=== PATIENT | female | born 1955 | race African-American/Black ===

== ENCOUNTER 2018-09-09 12:31 | Inpatient (IN) | payer OTHER ==
[2018-09-09] VITALS (35 sets, daily range): BP systolic 80–181; BP diastolic 46–128; PULSE 57–98; RESP 6–41
[~2018-09-09] VITALS: Ht 167.6 cm; Wt 65.0 kg
[~2018-09-09 12:31] MED LIST: ADENOSINE 3 MG/ML SYRINGE IV ONE; AMIODARONE 150 MG INJ ONE; EPINEPHrine 0.1 MG/ML SYG ONE; NA BICARBONATE 8.4% 50 ML SYG ONE; NALOXONE 2 MG SYG ONE
--- NOTE | 2018-09-09 12:52 | ERD ---
ER Documentation Chief Complaint Chief Complaint Full arrest HPI The patient is a 63-year-old female, presenting to the ER because of a witnessed cardiac arrest on the street about 12:10 pm. She was in ventricular fib and she was defibrillated twice by EMS and treated with Epi 1 mg IV. She arrived to the ER in V Fib. She was immediately intubated w/o any difficulty. Accu chek was 90 The code began at 12:32 pm, ended at 12:41pm with ROSC. He did have Narcan 2 mg IV, was defibrillated twice at 200J, had Amiodaron 300mg IV and later 150 mg IV, epinephrine 1 mg IVx5 approx 3 min apart and 1 ampule of HCO3 with good response. Past medical/surgical history/social history/review of system: Unable to obtain due to her condition Medications Home Meds Reported Medications Hydrochlorothiazide* (Hydrochlorothiazide*) 25 Mg Tab, 25 MG PO DAILY, #30 TAB 09/09/18 Simvastatin (Simvastatin) 20 Mg Tablet, 20 MG PO DAILY 09/09/18 Lisinopril* (Lisinopril*) 40 Mg Tablet, 40 MG PO DAILY 09/09/18 Allergies Allergies: Coded Allergies: Unknown: Unable to obtain (Unverified , 09/09/18) Physical Exam Vitals Vital Signs Date Temp Pulse Resp B/P (MAP) Pulse Ox O2 O2 Flow FiO2 Time Delivery Rate 09/09/18 92.8 71 22 116/83 100 19:30 (94) 09/09/18 95.9 72 22 85/70 (75) 100 19:15 09/09/18 96.6 66 26 86/61 (69) 100 19:01 09/09/18 96.6 60 15 80/66 (71) 100 18:45 09/09/18 98.2 73 20 80/46 (57) 100 18:30 09/09/18 98.2 67 20 85/55 (65) 100 18:15 09/09/18 98.3 82 22 84/70 (75) 100 18:00 09/09/18 98.4 72 26 134/98 100 17:45 (110) 09/09/18 90 28 95 100 17:36 09/09/18 98.8 86 23 142/101 97 17:30 (115) 09/09/18 99.0 96 22 181/128 97 17:15 (145) 09/09/18 99.0 98 32 153/120 95 17:00 (131) 09/09/18 99.1 91 20 132/91 95 16:45 (105) 09/09/18 99.3 91 24 176/105 100 16:30 (128) 09/09/18 99.3 94 24 137/66 100 16:15 (89) 09/09/18 98.3 96 18 151/95 95 15:56 (113) 09/09/18 94 23 89 100 15:55 09/09/18 98.3 88 20 161/111 94 Mechanical 15:51 (128) Ventilator 09/09/18 97.9 82 20 142/94 92 Mechanical 15.0 14:50 (110) Ventilator 09/09/18 97.9 81 16 127/87 92 Mechanical 14:46 (100) Ventilator 09/09/18 98.9 80 20 127/87 100 Mechanical 15.0 14:40 (100) Ventilator 09/09/18 98.9 82 20 151/95 100 Mechanical 15.0 14:30 (113) Ventilator 09/09/18 98.9 84 20 141/100 100 Mechanical 15.0 14:20 (114) Ventilator 09/09/18 98.9 83 23 134/102 100 Mechanical 15.0 14:10 (113) Ventilator 09/09/18 98.9 84 23 131/90 100 Mechanical 15.0 14:00 (104) Ventilator 09/09/18 98.9 83 16 125/82 100 Mechanical 15.0 13:50 (96) Ventilator 09/09/18 98.9 87 23 135/101 100 Mechanical 15.0 13:40 (112) Ventilator 09/09/18 98.9 93 24 138/98 100 Mechanical 15.0 13:30 (111) Ventilator 09/09/18 98.9 88 29 129/91 100 Mechanical 15.0 13:23 (104) Ventilator 09/09/18 85 28 96 100 12:55 09/09/18 98.9 71 27 169/102 100 Mechanical 15.0 12:49 (124) Ventilator Physical Exam Const: No acute distress. Head: Atraumatic. Eyes: Normal Conjunctiva. ENT: Normal External Ears, Nose and Mouth. Neck: Full range of motion. No meningismus. Resp: Clear to auscultation bilaterally. Cardio: Regular rate and rhythm. Abd: Soft, non distended, normal bowel sounds, non tender. Skin: No petechiae or rashes. Back: No midline or flank tenderness. Ext: No cyanosis, or edema. Neur: Unable to perform due to her condition Psych: Unable to perform due to her condition Result Diagram: 09/09/18 1303 09/09/18 1303 Results 24 hrs Laboratory Tests Test 09/09/18 12:37 09/09/18 13:03 09/09/18 13:04 09/09/18 13:06 Bedside Glucose 90 mg/dL White Blood 2.6 10^3/ul Count Red Blood Count 4.11 10^6/ul Hemoglobin 12.4 g/dl Hematocrit 39.4 % Mean Corpuscular 95.9 fl Volume Mean Corpuscular 30.2 pg Hemoglobin Mean Corpuscular 31.5 g/dl Hemoglobin Sophy nt Red Cell 12.9 % Distribution Width Platelet Count 146 10^3/UL Mean Platelet 11.1 fl Volume Immature 2.300 % Granulocytes % Neutrophils % % Lymphocytes % % Lymphocytes % 85 % (Manual) Reactive 10 % Lymphocytes % (Manual) Monocytes % % Monocytes % 2 % (Manual) Eosinophils % % Basophils % % Basophils % 1 % (Manual) Metamyelocytes % 1 % (manual) Myelocytes % 1 % (Manual) Nucleated Red 1 % Blood Cells % Immature 0.060 10^3/ul Granulocytes # Neutrophils # 10^3/ul Lymphocytes 2.2 10^3/ul (Manual) Lymphocytes # 10^3/ul Reactive 0.2 10^3/ul Lymphocytes # Monocytes # 10^3/ul Monocytes # 0.0 10^3/ul (Manual) Eosinophils # 10^3/ul Basophils # 10^3/ul Basophils # 0.0 10^3/ul (Manual) Metamyelocytes # 0.0 10^3/ul Myelocytes # 0.0 10^3/ul Nucleated Red 10^3/ul Blood Cells # Platelet NORMAL Estimate Giant Platelets 3 % Macrocytosis 1+ Spherocytes 1+ Prothrombin Time 13.4 Sec Prothrombin Time 1.0 Ratio INR 1.01 International Normalized Ratio Activated 33.1 Sec Partial Thrombop last Time Sodium Level 142 mmol/L Potassium Level 2.1 mmol/L Chloride Level 99 mmol/L Carbon Dioxide 19 mmol/L Level Anion Gap 24 Blood Urea 12 mg/dl Nitrogen Creatinine 0.89 mg/dl Est Glomerular > 60 mL/min Filtrat Rate mL/min Glucose Level 249 mg/dl Hemoglobin A1c 5.4 % Calcium Level 7.9 mg/dl Magnesium Level 2.2 mg/dl Total Bilirubin 0.0 mg/dl Direct Bilirubin 0.00 mg/dl Indirect 0.0 mg/dl Bilirubin Aspartate Amino 437 IU/L Transf (AST/SGOT ) Alanine 455 IU/L Aminotransferase (ALT/SGPT) Alkaline 79 IU/L Phosphatase Troponin I 0.014 ng/ml Total Protein 6.0 g/dl Albumin 3.4 g/dl Globulin 2.60 g/dl Albumin/Globulin 1.30 Ratio Thyroid 3.100 MIU/L Stimulating Hormone (TSH) Ethyl Alcohol < 10.0 mg/dl Level POC Venous 10.0 mmol/L Lactate Blood Gas Blood arterial Specimen Source Arterial Blood 09/09/2018 1:32:0 Date Drawn 0 PM Arterial Blood 7.204 pH (Temp corrected) Arterial Blood 49.3 mmhg pCO2 (Temp correct) Arterial Blood 150.5 mmHG pO2 (Temp corrected) Arterial Blood 19.0 mmol/L HCO3 Arterial Blood -9.0 mmol/L Base Excess Arterial Blood 98.2 mmHG Oxygen Saturatio n Brian Test ACCEPTAB Arterial Blood Left Radial Gas Puncture Site Arterial 0.3 % Blood Carboxyhem oglobin Arterial Blood 0.4 % Methemoglobin Blood Gas A-a O2 513.2 mmHg Differential Oxyhemoglobin 97.5 % Percent Blood Gas 37.0 C Temperature Blood Gas 20.0 Respiration Rate Blood Gas Actual 26 Respiration Rate Blood Gas VENT - AC Modality FiO2 100.0 % Blood Gas Tidal 500.0 mL Volume Blood Gas MD ROOSEVELT Critical Value Read Back Blood Gas CO Notified Whom Blood Gas 09/09/2018 1:45:2 Notified Time 3 PM Test 09/09/18 14:10 09/09/18 15:28 09/09/18 17:45 09/09/18 19:08 Urine Color YELLOW Urine Clarity CLOUDY Urine pH 7.0 Urine Specific 1.010 [place] Urine Ketones TRACE mg/dL Urine Nitrite NEGATIVE mg/dL Urine Bilirubin NEGATIVE mg/dL Urine NEGATIVE mg/dL Urobilinogen Urine Leukocyte NEGATIVE Veronica/ul Esterase Urine 22 /HPF Microscopic RBC Urine 15 /HPF Microscopic WBC Urine Squamous MODERATE /HPF Epithelial Cells Urine Renal FEW /HPF Epithelial Cells Urine Bacteria FEW /HPF Urine Hemoglobin 2+ mg/dL Urine Glucose 3+ mg/dL Urine Total 3+ mg/dl Protein Urine Opiates Negative Screen Urine Negative Barbiturates Urine Negative Amphetamines Screen Urine Negative Benzodiazepines Screen Urine Cocaine Negative Screen Urine Negative Cannabinoids POC Venous 2.7 mmol/L Lactate Lactic Acid 3.4 mmol/L Level Blood Gas Blood arterial Specimen Source Arterial Blood 09/09/2018 7:15:1 Date Drawn 5 PM Arterial Blood 7.265 pH (Temp corrected) Arterial Blood 43.3 mmhg pCO2 (Temp correct) Arterial Blood 65.7 mmHG pO2 (Temp corrected) Arterial Blood 19.7 mmol/L HCO3 Arterial Blood -7.7 mmol/L Base Excess Arterial Blood 92.2 mmHG Oxygen Saturatio n Brian Test ACCEPTAB Arterial Blood Right Radial Gas Puncture Site Arterial 0.3 % Blood Carboxyhem oglobin Arterial Blood 0.3 % Methemoglobin Blood Gas A-a O2 608.9 mmHg Differential Oxyhemoglobin 91.6 % Percent Blood Gas 35.0 C Temperature Blood Gas 20.0 Respiration Rate Blood Gas Actual 24 Respiration Rate Blood Gas VENT - AC Modality FiO2 100.0 % Blood Gas Tidal 500.0 mL Volume Blood Gas Low 5.0 cmH2O PEEP Setting Blood Gas 35.0 Inspiratory Pressure Blood Gas JAGJIT DELGADO Critical Value Read Back Blood Gas AA Notified Whom Blood Gas 09/09/2018 7:28:4 Notified Time 6 PM Test 09/09/18 19:40 White Blood Pending Count Red Blood Count Pending Hemoglobin Pending Hematocrit Pending Mean Corpuscular Pending Volume Mean Corpuscular Pending Hemoglobin Mean Corpuscular Pending Hemoglobin Sophy nt Red Cell Pending Distribution Width Platelet Count Pending Mean Platelet Pending Volume Current Medications Medications Dose Sig/Susanne Start Time Status Last (Trade) Ordered Route PRN Stop Time Admin Dose Reason Admin Amiodarone 500 ml @ 0 Q0M IV 09/09/18 09/09/18 HCl 900 mls/hr 13:30 09/10/18 13:14 mg/Dextrose 13:29 Vancomycin 250 ml @ ONCE ONCE 09/09/18 DC 09/09/18 HCl 125 mls/hr IVPB 13:30 09/09/18 14:10 15:29 Piperacillin 100 ml @ ONCE ONCE 09/09/18 DC 1/7/19 Sod/ 200 mls/hr IVPB 13:30 09/09/18 13:14 Tazobactam 13:59 Sod Sodium 1,770 ml @ BOLUS X1 09/09/18 DC 09/09/18 Chloride 1,770 mls/hr ONCE IV 13:30 09/09/18 13:13 14:29 Propofol 100 ml @ 0 TITRATE 09/09/18 DC 09/09/18 mls/hr ONCE IV 13:30 09/09/18 13:26 13:31 Potassium 100 ml @ Q2H IVPB 09/09/18 09/09/18 Chloride 50 mls/hr 14:00 09/09/18 18:27 21:59 Vecuronium 10 mg STK-MED 09/09/18 DC [place] ONCE .ROUTE 13:59 09/09/18 (Norcuron) 14:00 Potassium 1,000 ml @ [id number] IV 09/09/18 09/09/18 Chloride/Dext 75 mls/hr 16:15 18:28 gerson/ Sod Cl Albuterol 4 puff Q4H RESP 09/09/18 (Ventolin THERAPY INH 17:00 Hfa) Albuterol 4 puff Q2H RESP 09/09/18 (Ventolin THERAPY PRN 16:30 Hfa) INH SHORTNESS OF BREATH 650 mg Q6H PRN 09/09/18 Acetaminophen NGT PAIN 16:30 (Tylenol LEVEL 1-3 OR Liquid) FEVER Morphine 2 mg Q4H PRN 09/09/18 Sulfate IV PAIN 16:30 (morphine) LEVEL 7-10 40 mg DAILY@06 09/10/18 Pantoprazole IV 06:00 (Protonix Iv) Heparin 5,000 unit Q8 SC 09/09/18 Sodium 22:00 (Porcine) (Heparin (5000 Units/1ml)) Piperacillin 100 ml @ Q8 IVPB 09/09/18 Sod/ 200 mls/hr 22:00 Tazobactam Sod Midazolam 50 ml @ 1 TITRATE IV 09/09/18 DC HCl mls/hr 18:30 09/09/18 18:30 Midazolam 50 ml @ ud STK-MED 09/09/18 DC HCl ONCE IV 18:15 09/09/18 18:16 Midazolam 50 ml @ 1 TITRATE IV 09/09/18 HCl mls/hr 18:30 Sodium 1,000 ml @ Q1H ONCE 09/09/18 09/09/18 Chloride 1,000 mls/hr IV 19:00 09/09/18 19:10 19:59 250 ml @ TITRATE IV 09/09/18 Norepinephrin 1.875 mls/ 19:00 e hr Procedures/MDM [place] [id number] Radiology Main Line: [phone] DIAGNOSTIC IMAGING REPORT Patient: DIONNE SOLIS : 1955 Age: 63 Sex: F MR #: [id number] DOS: 09/09/18 1426 Ordering MD: MELO REIS MD Location: E/R Room/Bed: PROCEDURE: XR Chest. CLINICAL INDICATION: pain TECHNIQUE: Single portable view of the chest was obtained COMPARISON: DR GOFF 09/09/2018 FINDINGS: The endotracheal tube is seen 6.2 cm above the gabriel, in appropriate position. There are worsening right upper lobe, bilateral perihilar and right lower lobe infiltrates. There is a nasogastric tube within the stomach.. There is a new right-sided central venous catheter with its tip overlying the cavoatrial junction. The heart, lungs and mediastinum are otherwise unchanged. . RPTAT: AA IMPRESSION: Endotracheal tube in appropriate position. New right-sided central venous catheter in place. Worsening extensive infiltrates, right greater than left. No other significant change. .Manolo Wang MD, MD Date Time Electronically viewed and signed by .Manolo Wang MD, on 09/09/2018 14:52 .S/ CC: MELO REIS MD [id number] [place] [id number] Radiology Main Line: [phone] DIAGNOSTIC IMAGING REPORT Patient: DIONNE SOLIS : 1955 Age: 63 Sex: F MR #: [id number] DOS: 09/09/18 1309 Ordering MD: MELO REIS MD Location: E/R Room/Bed: PROCEDURE: CT Brain without contrast. CLINICAL INDICATION: Fall TECHNIQUE: A CT of the brain was performed on a GE LightSpeed 64-slice CT scanner utilizing axial imaging from the skull base through the vertex without IV contrast. Multiplanar reformatted images were made. Images were reviewed on a PACS workstation. The CTDIvol is 48 mGy and the DLP is 804 mGycm. DICOM images are available. One or more of the following dose reduction techniques were utilized: 1.) Automated exposure control 2.) Adjustment of the mA +/- kV according to patient's size 3.) Use of iterative reconstruction technique. COMPARISON: None FINDINGS: There is no intracranial hemorrhage, mass effect, or midline shift. No extra- axial fluid collection is seen. The ventricles and sulci are normal in size and configuration. The density of the brain is normal, and the nielsen white matter differentiation appears well-preserved. The visualized paranasal sinuses and osseous structures are grossly unremarkable. IMPRESSION: 1. No evidence of acute intracranial pathology. Physician Brain Date Time Electronically viewed and signed by Physician Brain on 09/09/2018 15:31 ML/ CC: MELO REIS MD [id number] [place] [id number] Radiology Main Line: [phone] DIAGNOSTIC IMAGING REPORT Patient: DIONNE SOLIS : 1955 Age: 63 Sex: F MR #: [id number] DOS: 09/09/18 1309 Ordering MD: MELO REIS MD Location: E/R Room/Bed: PROCEDURE: CT Cervical Spine without contrast. CLINICAL INDICATION: Pain after fall TECHNIQUE: A CT of the cervical spine was performed on a [employer] VCT 64- slice CT scanner utilizing thin section axial images from the skull base through the thoracic inlet. Sagittal and coronal reformatted images were made. The CTDIvol is 19.24 mGy and the DLP is 419.45 mGycm. DICOM images are available. One or more of the following dose reduction techniques were utilized: 1.) Automated exposure control 2.) Adjustment of the mA +/- kV according to patient's size 3.) Use of iterative reconstruction technique. COMPARISON: No prior studies are available for comparison. FINDINGS: No acute fracture of the cervical spine detected. Straightening of the normal lordosis without significant vertebral body subluxation or acute appearing malalignment. Mild disc height loss at C5-C6 with small endplate osteophytes. Mild multilevel annular bulging without significant spinal canal stenosis. Mild uncovertebral spurring resulting in mild right-sided foraminal narrowing at C4-C5. No high- grade foraminal stenosis detected. Endotracheal tube in place. Partially imaged patchy opacities in the upper lobes, right greater than left. IMPRESSION: No acute fracture of the cervical spine. Straightening of the normal lordosis may be positional or related to muscle spasm. RPTAT:AAJJ Physician Roberto Carlos Date Time Electronically viewed and signed by Physician Roberto Carlos on 09/09/2018 15:21 RF/ CC: MELO REIS MD [id number] [place] [address] Radiology Main Line: [phone] DIAGNOSTIC IMAGING REPORT Patient: DIONNE SOLIS : 1955 Age: 63 Sex: F MR #: [id number] DOS: 09/09/18 1252 Ordering MD: MELO REIS MD Location: E/R Room/Bed: PROCEDURE: XR Chest. CLINICAL INDICATION: Status post intubation TECHNIQUE: Single portable view of the chest was obtained COMPARISON: None FINDINGS: There is a new endotracheal tube within the proximal right mainstem bronchus. Retraction of 2 cm is recommended. There is a nasogastric tube within the stomach. There is mild cardiomegaly. There is a right upper lobe, right perihilar and right lower lobe infiltrate. RPTAT: AA IMPRESSION: Endotracheal tube possibly within the right mainstem bronchus. Retraction of 2 cm is recommended. Extensive right lung infiltrates. A call report was made and the findings discussed with Melo Dyer at 09/09/2018 1:19:16 PM. .Manolo Wang MD, MD Date Time Electronically viewed and signed by .Manolo Wang MD, MD on 09/09/2018 13:19 .S/ CC: MELO REIS MD [id number] EKG: Read by emergency physician Rate/Rhythm: Normal Sinus Rhythm 92 beats/min QRS, ST, T-waves: No ST elevation, no T inversion, LAE, 1 AVB, LBBN Impression: Abnormal EKG MEDICAL MAKING DECISION: The patient is a 63-year-old female, presenting with acute full cardiac arrest, status post ventricular fibrillation, acute septic shock, acute bilateral pneumonia, acute hypokalemia, acute leukopenia. The differential diagnoses considered include but are not limited to cardiac arrhythmia, electrolyte imbalance, pneumonia, UTI. She was treated with nasogastric tube, Dave catheter, amiodarone drip to ventricular fibrillation, vancomycin IV, Zosyn IV, normosaline 30 mm/kg IV for acute septic shock, propofol drip for sedation, potassium chloride 80 mEq IV for acute hypokalemia ED hypothermia protocol was started MDM: Patient's infectious symptoms have not stabilized and the patient is at risk of rapid decompensation. The patient will be admitted for careful hydration, antibiotic therapy, and infectious source control. SEVERE SEPSIS CRITERIA: Infectious source:pna End organ damage indicated by: Lactate > 2.0 mmol/L Acute Resp Failure (sat < 92% w/o oxygen) SEPSIS MANAGEMENT Time of recognition of septic shock: 1:30 pm 3 HOUR BUNDLE Blood cultures x 2 before broad-spectrum antibiotics: Yes 30 ml/kg NS bolus completed Initial lactate10 Repeat lactatepending SEPTIC SHOCK ASSESSMENT: Y lactic acid > 4.0 No persistent hypotension (SBP < 90 or 40 mmHg drop, MAP < 65) despite 30 mL/kg IV fluid bolus VOLUME REASSESSMENT FOR SEPTIC SHOCK: Reevaluation Time:3:50 pm Temp98.3, BP161/111, HR88, RR20, Pox94% Heart regular rate & rhythm Lungs no crackles Skin warm & dry Cap Refill less than 2 seconds Peripheral pulses radially present PERSISTENT HYPOTENSION TREATMENT: Comfort care no Central line: R IJ Vasopressor started not required I considered further perfusion assessment with CVP measurement, SCVO2, bedside ultrasound volume assessment, passive leg raise, trial of further fluid bolus. And proceeded with 30 ml/kg fluid bolus of NSS, broad spectrum antibiotics, and admission. CRITICAL CARE Critical care time 35 minutes Emergent fluid management while maintaining close respiratory support. Provision of immediate and broad-spectrum antibiotic therapy. Simultaneous assessment for possible sources in order to direct targeted therapy. Consideration for invasive and chemical support to prevent cardiopulmonary collapse. Critical care time is independent of procedures performed. Central Line Placement by me: After the patient was consented and a time out was performed, appropriate hand hygiene was performed, the skin site was fully prepped and maximal sterile barrier technique was employed where the patient was sterilely draped, and the provider wore a mask and sterile gown and gloves. Anesthesia: 1% lidocaine locally Location: R IJ Device: Multiple lumen Technique: Seldinger technique. Secured with suture. Results: Venous return from all ports with easy saline flush. No complications. guide wire retrieved and disposed of. ED Ultrasound: Central line placed by me using concurrent ultrasound guidance done using sterile technique. Real time image archived in the medical record confirms vascular anatomy. Chest X-ray 1V Interpreted by me: Central line in SVC, Normal soft tissue, No evidence of pneumothorax. Endotracheal Intubation by me: Pre assessment performed. See preceding note for details. Pre-oxygenation performed with 100% oxygen RSI: Performed w/o complication or hypoxic events. Medications as ordered. Blade: Storz ET Tube: 7.5cm Depth: 23 cm at the lip Intubation confirmed by colorimetric CO2, equal breath sounds, quiet over the stomach. Departure Diagnosis: Primary Impression: Cardiac arrest Additional Impressions: Septic shock PNA (pneumonia) Hypokalemia Leukopenia Transaminitis Condition: Critical Comments I discussed the findings with the patient. I discussed the patient with the hospitalist Dr Rm at 4:05 PM . who was made aware of the lab, the treatment, the patient condition. The patient is admitted to ICU Disclaimer: Inadvertent spelling and grammatical errors are likely due to EHR/dictation software use and do not reflect on the overall quality of patient care. Also, please note that the electronic time recorded on this note does not necessarily reflect the actual time of the patient encounter. MELO REIS MD Sep 09, 2018 12:52
[2018-09-09] MEDS ORDERED: LISI40TA3 PO (13:03)
[2018-09-09] MEDS ORDERED: HYDR25TA6 PO (13:03)
[2018-09-09] MEDS ORDERED: SIMV20TA20 PO (13:03)
[2018-09-09] MEDS ORDERED: VANCOMYCIN 1 GM (PMX) 250 ML IVPB ONE (13:30)
[2018-09-09] MEDS ORDERED: AMIODARONE 900 MG in DEXTROSE 5% 482 ML IV SCH (13:30)
[2018-09-09] MEDS ORDERED: PROPOFOL 100 ML IV ONE (13:30)
[2018-09-09] MEDS ORDERED: PIPER-TAZO 3.375 GM IV (PMX) 100 ML IVPB ONE (13:30)
[2018-09-09] MEDS ORDERED: SOD CHLORIDE 0.9% 1,770 ML IV ONE (13:30)
[2018-09-09] MEDS ORDERED: VECURONIUM 10 MG VIAL ONE (13:59)
[2018-09-09] MEDS: POTASSIUM CHLORIDE 100 ML IVPB SCH ×4 (14:10→20:20)
[2018-09-09] MEDS ORDERED: ALBUTEROL HFA 8 GM INHALER INH PRN (16:30)
[2018-09-09] MEDS: ALBUTEROL HFA 8 GM INHALER INH SCH ×2 (17:00→23:23)
--- NOTE | 2018-09-09 17:07 | HP ---
Date/Time of Note Date/Time of Note DATE: 09/09/18 TIME: 16:40 Assessment/Plan VTE Prophylaxis SCD applied (from Nsg): Yes Pharmacological prophylaxis: heparin Lines/Catheters IV Catheter Type (from Nrsg): Saline Lock Urinary Cath still in place: Yes Reason Cath still needed: other (indicate) (septic shock, critically ill) Assessment/Plan Assessment/Plan 1. Vfib Cardiac arrest with ROSC - After being found down in Vfib arrest, patient underwent ACLS with 4 rounds of epi, Amiodarone x1, bicarb with ROSC - Remains unresponsive and hypothermia protocol initiated by ED physician - ECHO ordered - Cardiology consulted for further recommendations and appreciate consultation - Trop negative and will continue to trend - Utox negative 2. Septic shock secondary to pneumonia - right sided pneumonia noted on CXR - Nebs PRN - Broad spectrum antibiotics initiated and IVF - Lactic acid initially 10 and trending down. Will continue to monitor 3. Severe hypokalemia - K 2.1 and replacing - continue to monitor 4. Transaminitis - most likely secondary to hypoperfusion - if no improvement, will check RUQ US to and hepatitis panel to rule out other pathology 5. HTN - patient appears to be on Lisinopril and Hctz as outpatient - will hold for now 6. Acute hypoxic respiratory failure on mechanical ventilation - secondary to #1 and #2 - Pulm consulted for ventilator management 7. Diet - NPO 8. GI ppx - PPI 9. DVT ppx - SCD - Heparin 10. Code status - Full Code for now. Depending on pt clinical course, will need to find family to address goals of care 11. Disposition - Admit to ICU for management of mechanical ventilation and hypothermia protocol Result Diagram: 09/09/18 1303 09/09/18 1303 Results 24hrs Laboratory Tests Test 09/09/18 12:37 09/09/18 13:03 09/09/18 13:04 09/09/18 13:06 Bedside Glucose 90 White Blood Count 2.6 L Red Blood Count 4.11 L Hemoglobin 12.4 Hematocrit 39.4 Mean Corpuscular 95.9 Volume Mean Corpuscular 30.2 Hemoglobin Mean Corpuscular 31.5 L Hemoglobin Concent Red Cell 12.9 Distribution Width Platelet Count 146 Mean Platelet 11.1 H Volume Immature 2.300 H Granulocytes % Neutrophils % Lymphocytes % Lymphocytes % 85 H (Manual) Reactive 10 H Lymphocytes % (Manual) Monocytes % Monocytes % 2 (Manual) Eosinophils % Basophils % Basophils % 1 (Manual) Metamyelocytes % 1 H (manual) Myelocytes % 1 H (Manual) Nucleated Red 1 H Blood Cells % Immature 0.060 H Granulocytes # Neutrophils # Lymphocytes 2.2 (Manual) Lymphocytes # Reactive 0.2 H Lymphocytes # Monocytes # Monocytes # 0.0 L (Manual) Eosinophils # Basophils # Basophils # 0.0 (Manual) Metamyelocytes # 0.0 Myelocytes # 0.0 Nucleated Red Blood Cells # Platelet Estimate NORMAL Giant Platelets 3 H Macrocytosis 1+ Spherocytes 1+ Prothrombin Time 13.4 Prothrombin Time 1.0 Ratio INR International 1.01 Normalized Ratio Activated 33.[address] Time Sodium Level 142 Potassium Level 2.1 *L Chloride Level 99 Carbon Dioxide 19 L Level Anion Gap 24 H Blood Urea 12 Nitrogen Creatinine 0.89 Est Glomerular > 60 Filtrat Rate mL/min Glucose Level 249 H Calcium Level 7.9 L Magnesium Level 2.2 Total Bilirubin 0.0 L Direct Bilirubin 0.00 Indirect Bilirubin 0.0 Aspartate Amino 437 H Transf (AST/SGOT) Alanine 455 H Aminotransferase ( ALT/SGPT) Alkaline 79 Phosphatase Troponin I 0.014 Total Protein 6.0 L Albumin 3.4 Globulin 2.60 Albumin/Globulin 1.30 Ratio Thyroid 3.100 Stimulating Hormone (TSH) Ethyl Alcohol < 10.0 H Level POC Venous Lactate 10.0 *H Blood Gas Specimen Blood arterial Source Arterial Blood 09/09/2018 1:32:00 Date Drawn PM Arterial Blood pH 7.204 *L (Temp corrected) Arterial Blood 49.3 H pCO2 (Temp correct) Arterial Blood pO2 150.5 H (Temp corrected) Arterial Blood 19.0 L HCO3 Arterial Blood -9.0 L Base Excess Arterial Blood 98.2 H Oxygen Saturation Brian Test ACCEPTAB Arterial Blood Gas Left Radial Puncture Site Arterial 0.3 Blood Carboxyhemog lobin Arterial Blood 0.4 Methemoglobin Blood Gas A-a O2 513.2 H Differential Oxyhemoglobin 97.5 Percent Blood Gas 37.0 Temperature Blood Gas 20.0 Respiration Rate Blood Gas Actual 26 Respiration Rate Blood Gas Modality VENT - AC FiO2 100.0 Blood Gas Tidal 500.0 Volume Blood Gas Critical MD ROOSEVELT Value Read Back Blood Gas Notified [place] Whom Blood Gas Notified 09/09/2018 1:45:23 Time PM Test 09/09/18 14:10 09/09/18 15:28 Urine Color YELLOW Urine Clarity CLOUDY A Urine pH 7.0 Urine Specific 1.010 [place] Urine Ketones TRACE A Urine Nitrite NEGATIVE Urine Bilirubin NEGATIVE Urine Urobilinogen NEGATIVE Urine Leukocyte NEGATIVE Esterase Urine Microscopic 22 H RBC Urine Microscopic 15 H WBC Urine Squamous MODERATE Epithelial Cells Urine Renal FEW A Epithelial Cells Urine Bacteria FEW A Urine Hemoglobin 2+ H Urine Glucose 3+ H Urine Total 3+ H Protein Urine Opiates Negative Screen Urine Barbiturates Negative Urine Amphetamines Negative Screen Urine Negative Benzodiazepines Screen Urine Cocaine Negative Screen Urine Cannabinoids Negative POC Venous Lactate 2.7 *H HPI/ROS Admit Date/Time Admit Date/Time 09/09/18 1640 Hx of Present Illness 63 yo F with PMH assumed HTN presented to ED in full cardiac arrest. History obtained from ED and EMS documentation given patient intubated and hypothermia protocol initiated. Patient was found on sidewalk unconscious. She was found in Vfib arrest and ACLS protocol was performed. She received amiodarone, 4 rounds of epinephrine, bicarb and narcan. She has ROSC but since was unresponsive, hypothermia was initiated. In ED patient found with septic shock secondary to right sided pneumonia. ROS All 12 systems reviewed and pertinent positives as per HPI. Unable to obtain ROS given unresponsiveness Subjective hx not possible: pt critical PMH/Family/Social Past Medical History Medical History: hypertension Medications Current Medications Amiodarone HCl 900 mg/Dextrose 500 ml @ 0 mls/hr Q0M IV Last administered on 09/09/18at 13:14; Admin Dose 2 MLS/HR; Start 09/09/18 at 13:30; Stop 09/10/18 at 13:29 Potassium Chloride 100 ml @ 50 mls/hr Q2H IVPB Last administered on 09/09/18at 16:21; Admin Dose 50 MLS/HR; Start 09/09/18 at 14:00; Stop 09/09/18 at 21:59 Potassium Chloride/Dextrose/ Sod Cl 1,000 ml @ 75 mls/hr [id number] IV ; Start 09/09/18 at 16:15; Status UNV Albuterol (Ventolin Hfa) 4 puff Q4H RESP THERAPY INH ; Start 09/09/18 at 17:00; Status UNV Albuterol (Ventolin Hfa) 4 puff Q2H RESP THERAPY PRN INH SHORTNESS OF BREATH; Start 09/09/18 at 16:30; Status UNV Acetaminophen (Tylenol Liquid) 650 mg Q6H PRN NGT PAIN LEVEL 1-3 OR FEVER; Start 09/09/18 at 16:30; Status UNV Morphine Sulfate (morphine) 2 mg Q4H PRN IV PAIN LEVEL 7-10; Start 09/09/18 at 16:30; Status UNV Pantoprazole (Protonix Iv) 40 mg DAILY@06 IV ; Start 09/10/18 at 06:00; Status UNV Heparin Sodium (Porcine) (Heparin (5000 Units/1ml)) 5,000 unit Q8 SC ; Start 09/09/18 at 22:00; Status UNV Piperacillin Sod/ Tazobactam Sod 100 ml @ 200 mls/hr Q8 IVPB ; Start 09/09/18 at 22:00; Status UNV Coded Allergies: Unknown: Unable to obtain (Unverified , 09/09/18) Past Surgical History Past Surgical Hx: other (unknown) Family History Significant Family History: other (unknown) Social History Alcohol Use: other (unknown) Smoking Status: Unknown if ever smoked Drug Use: other (unknown) Exam/Review of Systems Vital Signs Vitals Vital Signs Date Temp Pulse Resp B/P (MAP) Pulse Ox O2 O2 Flow FiO2 Time Delivery Rate 09/09/18 98.3 96 18 151/95 95 15:56 (113) 09/09/18 Mechanical 15:51 Ventilator 09/09/18 15.0 14:50 Exam Exam General: Intubated and remains unresponsive. Started on hypothermia protocol at 1600 HEENT: Atraumatic, normocephalic. The pupils are equal, round and sluggishly reactive Neck: Supple with full range of motion. No rigidity or meningismus Chest: Nontender Lungs: Diminished with coarse breath sounds. no wheezing appreciated Heart: Normal S1-S2, Regular rhythm and rate. no murmurs Abdomen: Soft , nontenderness palpation of the abdomen, nondistended, No guarding no rebound tenderness , No masses or organomegaly. Extremities: Normal to inspection, no edema no cyanosis Neurologic: unresponsive Skin: cool to touch, no rashes or lesions appreciated Additional Comments Home medications reviewed IMAGING: PROCEDURE: XR Chest. CLINICAL INDICATION: pain TECHNIQUE: Single portable view of the chest was obtained COMPARISON: DR GOFF 09/09/2018 FINDINGS: The endotracheal tube is seen 6.2 cm above the gabriel, in appropriate position. There are worsening right upper lobe, bilateral perihilar and right lower lobe infiltrates. There is a nasogastric tube within the stomach.. There is a new right-sided central venous catheter with its tip overlying the cavoatrial junction. The heart, lungs and mediastinum are otherwise unchanged. . RPTAT: AA IMPRESSION: Endotracheal tube in appropriate position. New right-sided central venous catheter in place. Worsening extensive infiltrates, right greater than left. No other significant change. .Manolo Wang MD, Date Time Electronically viewed and signed by .Manolo Wang MD, MD on 09/09/2018 14:52 PROCEDURE: CT Brain without contrast. CLINICAL INDICATION: Fall TECHNIQUE: A CT of the brain was performed on a GE [employer]ila 64-slice CT scanner utilizing axial imaging from the skull base through the vertex without IV contrast. Multiplanar reformatted images were made. Images were reviewed on a PACS workstation. The CTDIvol is 48 mGy and the DLP is 804 mGycm. DICOM images are available. One or more of the following dose reduction techniques were utilized: 1.) Automated exposure control 2.) Adjustment of the mA +/- kV according to patient's size 3.) Use of iterative reconstruction technique. COMPARISON: None FINDINGS: There is no intracranial hemorrhage, mass effect, or midline shift. No extra- axial fluid collection is seen. The ventricles and sulci are normal in size and configuration. The density of the brain is normal, and the nielsen white matter differentiation appears well-preserved. The visualized paranasal sinuses and osseous structures are grossly unremarkable. IMPRESSION: 1. No evidence of acute intracranial pathology. Physician Brain Date Time Electronically viewed and signed by Physician Brain on 09/09/2018 15:31 PROCEDURE: CT Brain without contrast. CLINICAL INDICATION: Fall TECHNIQUE: A CT of the brain was performed on a GE LightSpeed 64-slice CT scanner utilizing axial imaging from the skull base through the vertex without IV contrast. Multiplanar reformatted images were made. Images were reviewed on a PACS workstation. The CTDIvol is 48 mGy and the DLP is 804 mGycm. DICOM images are available. One or more of the following dose reduction techniques were utilized: 1.) Automated exposure control 2.) Adjustment of the mA +/- kV according to patient's size 3.) Use of iterative reconstruction technique. COMPARISON: None FINDINGS: There is no intracranial hemorrhage, mass effect, or midline shift. No extra- axial fluid collection is seen. The ventricles and sulci are normal in size and configuration. The density of the brain is normal, and the nielsen white matter differentiation appears well-preserved. The visualized paranasal sinuses and osseous structures are grossly unremarkable. IMPRESSION: 1. No evidence of acute intracranial pathology. Physician Brain Date Time Electronically viewed and signed by Physician Brain on 09/09/2018 15:31 PROCEDURE: XR Chest. CLINICAL INDICATION: Status post intubation TECHNIQUE: Single portable view of the chest was obtained COMPARISON: None FINDINGS: There is a new endotracheal tube within the proximal right mainstem bronchus. Retraction of 2 cm is recommended. There is a nasogastric tube within the stomach. There is mild cardiomegaly. There is a right upper lobe, right perihilar and right lower lobe infiltrate. RPTAT: AA IMPRESSION: Endotracheal tube possibly within the right mainstem bronchus. Retraction of 2 cm is recommended. Extensive right lung infiltrates. A call report was made and the findings discussed with Melo Dyer at 09/09/2018 1:19:16 PM. .Manolo Wang MD, MD Date Time Electronically viewed and signed by .Manolo Wang MD, MD on 09/09/2018 13:19 OZZIE ALVAREZ MD Sep 09, 2018 16:52
--- NOTE | 2018-09-09 18:06 | CONS ---
Date/Time of Note Date/Time of Note DATE: 09/09/18 TIME: 17:59 Assessment/Plan Assessment/Plan Hospital Course 1. Cardiopulmonary arrest 2. Hypoxemic hypercapnic respiratory failure status post intubation on the vent 3. Right lung infiltrate consistent with pneumonia possible aspiration pneumonia 4. Possibly V. tach arrest: Probably associated with severe hypokalemia 5. Encephalopathy 6. Severe lactic acidosis 7. Hyperglycemia 8. Transaminitis 9. Severe hypokalemia 10. Incomplete data Recommendations: Continue with vent support. Continue with electrolyte correction. Recommend correcting the potassium to rule more than 4 magnesium more than 2 Antibiotic management will be deferred to internal medicine team Hypothermia protocol to be completed Echocardiogram will be ordered Electrolytes will be repeated. Cardiac enzymes including troponin and CK CK-MB will be repeated in the morning again. More than 40 minutes of critical care time was for management treatment is critically patient excluding any procedures Thank you for his referral. We will continue to follow along with you DEMETRIUS MCCRAY MD [facility] Result Diagram: 09/09/18 1303 09/09/18 1303 Results 24hrs Laboratory Tests Test 09/09/18 12:37 09/09/18 13:03 09/09/18 13:04 09/09/18 13:06 Bedside Glucose 90 White Blood Count 2.6 L Red Blood Count 4.11 L Hemoglobin 12.4 Hematocrit 39.4 Mean Corpuscular 95.9 Volume Mean Corpuscular 30.2 Hemoglobin Mean Corpuscular 31.5 L Hemoglobin Concent Red Cell 12.9 Distribution Width Platelet Count 146 Mean Platelet 11.1 H Volume Immature 2.300 H Granulocytes % Neutrophils % Lymphocytes % Lymphocytes % 85 H (Manual) Reactive 10 H Lymphocytes % (Manual) Monocytes % Monocytes % 2 (Manual) Eosinophils % Basophils % Basophils % 1 (Manual) Metamyelocytes % 1 H (manual) Myelocytes % 1 H (Manual) Nucleated Red 1 H Blood Cells % Immature 0.060 H Granulocytes # Neutrophils # Lymphocytes 2.2 (Manual) Lymphocytes # Reactive 0.2 H Lymphocytes # Monocytes # Monocytes # 0.0 L (Manual) Eosinophils # Basophils # Basophils # 0.0 (Manual) Metamyelocytes # 0.0 Myelocytes # 0.0 Nucleated Red Blood Cells # Platelet Estimate NORMAL Giant Platelets 3 H Macrocytosis 1+ Spherocytes 1+ Prothrombin Time 13.4 Prothrombin Time 1.0 Ratio INR International 1.01 Normalized Ratio Activated 33.[address] Time Sodium Level 142 Potassium Level 2.1 *L Chloride Level 99 Carbon Dioxide 19 L Level Anion Gap 24 H Blood Urea 12 Nitrogen Creatinine 0.89 Est Glomerular > 60 Filtrat Rate mL/min Glucose Level 249 H Hemoglobin A1c 5.4 Calcium Level 7.9 L Magnesium Level 2.2 Total Bilirubin 0.0 L Direct Bilirubin 0.00 Indirect Bilirubin 0.0 Aspartate Amino 437 H Transf (AST/SGOT) Alanine 455 H Aminotransferase ( ALT/SGPT) Alkaline 79 Phosphatase Troponin I 0.014 Total Protein 6.0 L Albumin 3.4 Globulin 2.60 Albumin/Globulin 1.30 Ratio Thyroid 3.100 Stimulating Hormone (TSH) Ethyl Alcohol < 10.0 H Level POC Venous Lactate 10.0 *H Blood Gas Specimen Blood arterial Source Arterial Blood 09/09/2018 1:32:00 Date Drawn PM Arterial Blood pH 7.204 *L (Temp corrected) Arterial Blood 49.3 H pCO2 (Temp correct) Arterial Blood pO2 150.5 H (Temp corrected) Arterial Blood 19.0 L HCO3 Arterial Blood -9.0 L Base Excess Arterial Blood 98.2 H Oxygen Saturation Brina Test ACCEPTAB Arterial Blood Gas Left Radial Puncture Site Arterial 0.3 Blood Carboxyhemog lobin Arterial Blood 0.4 Methemoglobin Blood Gas A-a O2 513.2 H Differential Oxyhemoglobin 97.5 Percent Blood Gas 37.0 Temperature Blood Gas 20.0 Respiration Rate Blood Gas Actual 26 Respiration Rate Blood Gas Modality VENT - AC FiO2 100.0 Blood Gas Tidal 500.0 Volume Blood Gas Critical MD ROOSEVELT Value Read Back Blood Gas Notified [place] Whom Blood Gas Notified 09/09/2018 1:45:23 Time PM Test 09/09/18 14:10 09/09/18 15:28 Urine Color YELLOW Urine Clarity CLOUDY A Urine pH 7.0 Urine Specific 1.010 [place] Urine Ketones TRACE A Urine Nitrite NEGATIVE Urine Bilirubin NEGATIVE Urine Urobilinogen NEGATIVE Urine Leukocyte NEGATIVE Esterase Urine Microscopic 22 H RBC Urine Microscopic 15 H WBC Urine Squamous MODERATE Epithelial Cells Urine Renal FEW A Epithelial Cells Urine Bacteria FEW A Urine Hemoglobin 2+ H Urine Glucose 3+ H Urine Total 3+ H Protein Urine Opiates Negative Screen Urine Barbiturates Negative Urine Amphetamines Negative Screen Urine Negative Benzodiazepines Screen Urine Cocaine Negative Screen Urine Cannabinoids Negative POC Venous Lactate 2.7 *H Consultation Date/Type/Reason Admit Date/Time 09/09/18 1640 Date of Consultation: Sep 09, 2018 Type of Consult CV Reason for Consultation VF Requesting Provider: OZZIE ALVAREZ MD Hx of Present Illness Interventional cardiology consultation note/critical care note Chief complaint: Found unresponsive Reason for consult:V. fib cardiopulmonary arrest History of present illness: Thank you for this referral. History was obtained from discussion with multiple physicians and staff. Patient himself is not able to provide any history to me. This is an unfortunate 63-year-old female with unclear past medical history who was found unresponsive on the sidewalk on the street. Per report adequate obtained from the staff patient was noted to be in V. tach has been multiple times shock and resuscitated. Patient has been unresponsive and placed on hypothermia protocol now. Patient is intubated on the vent. Her potassium was severely decreased at 2.1 she has been getting replacement therapy. Blood press ure currently stable though. No other history could be obtained from the patient Allergies: Unclear Medications unknown Family history: Unknown Social history: Unknown Past medical history: Presumably hypertension. Wrist is unclear Review of system: Unable to obtain except for above-mentioned Past Medical History Medical History: hypertension Medications Current Medications Amiodarone HCl 900 mg/Dextrose 500 ml @ 0 mls/hr Q0M IV Last administered on 09/09/18at 13:14; Admin Dose 2 MLS/HR; Start 09/09/18 at 13:30; Stop 09/10/18 at 13:29 Potassium Chloride 100 ml @ 50 mls/hr Q2H IVPB Last administered on 09/09/18at 16:21; Admin Dose 50 MLS/HR; Start 09/09/18 at 14:00; Stop 09/09/18 at 21:59 Potassium Chloride/Dextrose/ Sod Cl 1,000 ml @ 75 mls/hr [id number] IV ; Start 09/09/18 at 16:15 Albuterol (Ventolin Hfa) 4 puff Q4H RESP THERAPY INH ; Start 09/09/18 at 17:00 Albuterol (Ventolin Hfa) 4 puff Q2H RESP THERAPY PRN INH SHORTNESS OF BREATH; Start 09/09/18 at 16:30 Acetaminophen (Tylenol Liquid) 650 mg Q6H PRN NGT PAIN LEVEL 1-3 OR FEVER; Start 09/09/18 at 16:30 Morphine Sulfate (morphine) 2 mg Q4H PRN IV PAIN LEVEL 7-10; Start 09/09/18 at 16:30 Pantoprazole (Protonix Iv) 40 mg DAILY@06 IV ; Start 09/10/18 at 06:00 Heparin Sodium (Porcine) (Heparin (5000 Units/1ml)) 5,000 unit Q8 SC ; Start 09/09/18 at 22:00 Piperacillin Sod/ Tazobactam Sod 100 ml @ 200 mls/hr Q8 IVPB ; Start 09/09/18 at 22:00 Allergies: Coded Allergies: Unknown: Unable to obtain (Unverified , 09/09/18) Past Surgical History Past Surgical Hx: other (unknown) Social History Alcohol Use: other (unknown) Smoking Status: Unknown if ever smoked Drug Use: other (unknown) Exam/Review of Systems Vital Signs Vitals Vital Signs Date Temp Pulse Resp B/P (MAP) Pulse Ox O2 O2 Flow FiO2 Time Delivery Rate 09/09/18 98.4 72 26 134/98 100 17:45 (110) 09/09/18 Mechanical 15:51 Ventilator 09/09/18 15.0 14:50 Exam General: Status post intubation on the vent HEENT: NC/AT. pupils are equal. round. NECK: no stridor. CV: RRR. systolic murmur; no gallop or rubs. PULM: no wheezing + rhonchi. GI: SOFT, NT, ND, no rebound or guarding Extremity: trace B/L LE edema. no clubbing. neuro: Sedated and unable to respond to verbal stimulus. Has some movement of the upper extremity though Psych: calm rectal: deferred EKG was personally reviewed. Appears to be sinus rhythm with interventricular conduction delay Chest x-ray done in the ER shows: Endotracheal tube possibly within the right mainstem bronchus. Retraction of 2 cm is recommended. Extensive right lung infiltrate ECG done September 09, 2018 in the emergency room shows:1. No evidence of acute intracranial pathology. Medications Medications Current Medications Amiodarone HCl 900 mg/Dextrose 500 ml @ 0 mls/hr Q0M IV Last administered on 09/09/18at 13:14; Admin Dose 2 MLS/HR; Start 09/09/18 at 13:30; Stop 09/10/18 at 13:29 Potassium Chloride 100 ml @ 50 mls/hr Q2H IVPB Last administered on 09/09/18at 16:21; Admin Dose 50 MLS/HR; Start 09/09/18 at 14:00; Stop 09/09/18 at 21:59 Potassium Chloride/Dextrose/ Sod Cl 1,000 ml @ 75 mls/hr [id number] IV ; Start 09/09/18 at 16:15 Albuterol (Ventolin Hfa) 4 puff Q4H RESP THERAPY INH ; Start 09/09/18 at 17:00 Albuterol (Ventolin Hfa) 4 puff Q2H RESP THERAPY PRN INH SHORTNESS OF BREATH; Start 09/09/18 at 16:30 Acetaminophen (Tylenol Liquid) 650 mg Q6H PRN NGT PAIN LEVEL 1-3 OR FEVER; Start 09/09/18 at 16:30 Morphine Sulfate (morphine) 2 mg Q4H PRN IV PAIN LEVEL 7-10; Start 09/09/18 at 16:30 Pantoprazole (Protonix Iv) 40 mg DAILY@06 IV ; Start 09/10/18 at 06:00 Heparin Sodium (Porcine) (Heparin (5000 Units/1ml)) 5,000 unit Q8 SC ; Start 09/09/18 at 22:00 Piperacillin Sod/ Tazobactam Sod 100 ml @ 200 mls/hr Q8 IVPB ; Start 09/09/18 at 22:00 DEMETRIUS MCCRAY MD Sep 09, 2018 18:06
[2018-09-09] MEDS ORDERED: MIDAZOLAM (DRIP) 50 mg/50 mL 50 ML IV ONE (18:15)
[2018-09-09] MEDS: D5W-0.45 NACL + KCL 20 MEQ 1,000 ML IV SCH (18:28)
[2018-09-09] MEDS ORDERED: MIDAZOLAM (DRIP) 50 mg/50 mL 50 ML IV SCH (18:30)
[2018-09-09] MEDS ORDERED: SOD CHLORIDE 0.9% 1,000 ML IV ONE (19:00)
[2018-09-09] MEDS: MIDAZOLAM (DRIP) 50 mg/50 mL 50 ML IV SCH (20:20)
[2018-09-09] MEDS: morphine 2 MG INJ IV PRN (20:20)
[2018-09-09] MEDS: NORepinephrine 8MG/250 ML (PMX 250 ML IV SCH (20:45)
[2018-09-09] MEDS: FENTAnyl (DRIP) 1000 mcg/100mL 100 ML IV SCH (20:50)
--- NOTE | 2018-09-09 21:37 | NUR ---
received pt at 2014 Hypothermia restarted via [place] in maintenance phase. Ashergger applied. Orders to stop heparin subq; start pt on Fentanyl ggt, Insulin ggt received and implemented. Pt was started on Levo at 5 mc. Will order labs per hypothermia protocol. Addendum: 09/11/18 at 1905 by LILLIE MAYO RN Pt came with TOF 4/4
[2018-09-09] MEDS ORDERED: HEPARIN 5,000 UNIT/1 ML VIAL SC SCH (22:00)
[2018-09-09] MEDS ORDERED: INSULIN HUMAN REGULAR 100 UNIT in SOD CHLORIDE 0.9% 99 ML IV SCH (22:00)
[2018-09-09] MEDS ORDERED: DEXTROSE 50% 50 ML SYRINGE IV PRN ×2 (22:00)
--- NOTE | 2018-09-09 22:00 | NUR ---
RN called pharmacy regarding insulin ggt pending
[2018-09-09] MEDS: PIPER-TAZO 3.375 GM IV (PMX) 100 ML IVPB SCH (22:22)
[2018-09-09] MEDS: ACCU-CHEK XX SCH ×2 (22:22→23:16)
--- NOTE | 2018-09-09 23:05 | NUR ---
Dr Kelly is notified regarding pt irene, HR 57. Amiodarone ggt on hold
[2018-09-09] MEDS: ACETAMINOPHEN 650MG/20.3ML CUP NGT PRN (23:18)
[2018-09-10] VITALS (102 sets, daily range): BP systolic 77–163; BP diastolic 56–93; PULSE 44–65; RESP 12–30; Ht 167.6 cm; Wt 65.0 kg
[2018-09-10] MEDS ORDERED: INSULIN HUMAN REGULAR 100 UNIT in SOD CHLORIDE 0.9% 99 ML IV SCH (00:30)
--- NOTE | 2018-09-10 00:46 | NUR ---
Dr Kelly is notified regarding pt irene, HR 57. Amiodarone ggt on hold Addendum: 09/11/18 at 1904 by LILLIE MAYO RN Dr Brandon was updated regarding all abnormal labs, pt was started on Levo to keep map above 65. RR are in 20s after pt was started on Fentanyl ggt.
[2018-09-10] MEDS: MIDAZOLAM (DRIP) 50 mg/50 mL 50 ML IV SCH ×2 (00:47→06:23)
[2018-09-10] MEDS: ACCU-CHEK XX SCH ×24 (01:00→23:07)
[2018-09-10] MEDS: ALBUTEROL HFA 8 GM INHALER INH SCH ×6 (01:00→21:26)
[2018-09-10] MEDS ORDERED: VECURONIUM 100 MG in DEXTROSE 5% 100 ML IV SCH (02:00)
[2018-09-10] MEDS ORDERED: VECURONIUM 10 MG VIAL IV SCH (02:00)
[2018-09-10] MEDS ORDERED: POTASSIUM CHLORIDE 200 ML IVPB ONE (02:52)
[2018-09-10] MEDS: NORepinephrine 8MG/250 ML (PMX 250 ML IV SCH (04:37)
[2018-09-10] MEDS: POTASSIUM CHLORIDE 100 ML IVPB SCH ×2 (05:11→06:26)
[2018-09-10] MEDS ORDERED: SOD CHLORIDE 0.9% 1,000 ML IV ONE ×2 (05:30→21:30)
[2018-09-10] MEDS: PIPER-TAZO 3.375 GM IV (PMX) 100 ML IVPB SCH ×3 (06:32→21:29)
[2018-09-10] MEDS: PANTOPRAZOLE 40 MG INJ IV SCH (06:32)
--- NOTE | 2018-09-10 07:05 | NUR ---
EOS; PT MAINTAIN ON HYPOTHERMIA PROTOCOL DURING THE NIGHT. ABLE TO STABILIZED TRAIN OF 4 WITH ADDITION OF VECURONIUM. CONTINUES ON VERSED, FENTANYL, INSULIN GTT. NOTIFIED DR PEREZ OF LOW URINE OUT PUT. ORDERED A FLUID BOLUS OF [place] 1000CC. WAS ABLE TO LOCATE FAMILY. THERE WAS A PHONE FOUND IN HER CLOTHING. FOUND THE DAUGHTERsMELANIE Goel [phone], MAAME [phone], DAUGHTER MARBELLA SOLIS [phone].
[2018-09-10] MEDS: D5W-0.45 NACL + KCL 20 MEQ 1,000 ML IV SCH (07:59)
--- NOTE | 2018-09-10 08:39 | PN ---
Date/Time of Note Date/Time of Note DATE: 09/10/18 TIME: 08:39 Assessment/Plan VTE Prophylaxis SCD applied (from Nsg): Yes Pharmacological prophylaxis: NA/contraindicated Pharm contraindication: other (hypothermia protocol) Lines/Catheters IV Catheter Type (from Nrsg): Central Line Central line still needed: Yes Urinary Cath still in place: Yes Reason Cath still needed: terminal illness/intractable pain Assessment/Plan Assessment/Plan 1. Vfib Cardiac arrest with ROSC - Cardiology on board and appreciate consultation. Placed on amiodarone drip and no further episodes of Vtach appreciated. Amio on hold this am due to br adycardia - After being found down in Vfib arrest, patient underwent ACLS with 4 rounds of epi, Amiodarone x1, bicarb with ROSC. Most likely secondary to severe hypokalemia given found with K 2.1 at time of admission - still under hypothermia protocol until 1600 when she will begin rewarming process - ECHO ordered - Utox negative 2. Septic shock secondary to pneumonia - right sided pneumonia noted on CXR - leukopenia noted in setting of sepsis - Nebs PRN - Broad spectrum antibiotics initiated and IVF - Lactic acid initially 10 and trending down. Will continue to monitor 3. Acute hypoxic respiratory failure on mechanical ventilation - secondary to #1 and #2 - Pulm consulted for ventilator management 4. Transaminitis - most likely secondary to hypoperfusion 5. HTN - patient appears to be on Lisinopril and Hctz as outpatient - will hold for now 6. Hypokalemia - replaced overnight and will hold off during last 8 hours of cooling measures - goal K >4 and Mg >2 7. Disposition - Continue monitoring in ICU while under hypothermia protocol and plans for rewarming to begin at 1600 Result Diagram: 09/10/18 0430 09/10/18 0430 Results 24hrs Laboratory Tests Test 09/09/18 12:37 09/09/18 13:03 09/09/18 13:04 09/09/18 13:06 Bedside Glucose 90 White Blood 2.6 L Count Red Blood Count 4.11 L Hemoglobin 12.4 Hematocrit 39.4 Mean Corpuscular 95.9 Volume Mean Corpuscular 30.2 Hemoglobin Mean Corpuscular 31.5 L Hemoglobin Sophy nt Red Cell 12.9 Distribution Width Platelet Count 146 Mean Platelet 11.1 H Volume Immature 2.300 H Granulocytes % Neutrophils % Lymphocytes % Lymphocytes % 85 H (Manual) Reactive 10 H Lymphocytes % (Manual) Monocytes % Monocytes % 2 (Manual) Eosinophils % Basophils % Basophils % 1 (Manual) Metamyelocytes % 1 H (manual) Myelocytes % 1 H (Manual) Nucleated Red 1 H Blood Cells % Immature 0.060 H Granulocytes # Neutrophils # Lymphocytes 2.2 (Manual) Lymphocytes # Reactive 0.2 H Lymphocytes # Monocytes # Monocytes # 0.0 L (Manual) Eosinophils # Basophils # Basophils # 0.0 (Manual) Metamyelocytes # 0.0 Myelocytes # 0.0 Nucleated Red Blood Cells # Platelet NORMAL Estimate Giant Platelets 3 H Macrocytosis 1+ Spherocytes 1+ Prothrombin Time 13.4 Prothrombin Time 1.0 Ratio INR 1.01 International Normalized Ratio Activated 33.1 Partial Thrombop last Time Sodium Level 142 Potassium Level 2.1 *L Chloride Level 99 Carbon Dioxide 19 L Level Anion Gap 24 H Blood Urea 12 Nitrogen Creatinine 0.89 Est Glomerular > 60 Filtrat Rate mL/min Glucose Level 249 H Hemoglobin A1c 5.4 Calcium Level 7.9 L Magnesium Level 2.2 Total Bilirubin 0.0 L Direct Bilirubin 0.00 Indirect 0.0 Bilirubin Aspartate Amino 437 H Transf (AST/SGOT ) Alanine 455 H Aminotransferase (ALT/SGPT) Alkaline 79 Phosphatase Troponin I 0.014 Total Protein 6.0 L Albumin 3.4 Globulin 2.60 Albumin/Globulin 1.30 Ratio Thyroid 3.100 Stimulating Hormone (TSH) Ethyl Alcohol < 10.0 H Level POC Venous 10.0 *H Lactate Blood Gas Blood arterial Specimen Source Arterial Blood 09/09/2018 1:32:00 Date Drawn PM Arterial Blood 7.204 *L pH (Temp corrected) Arterial Blood 49.3 H pCO2 (Temp correct) Arterial Blood 150.5 H pO2 (Temp corrected) Arterial Blood 19.0 L HCO3 Arterial Blood -9.0 L Base Excess Arterial Blood 98.2 H Oxygen Saturatio n Brian Test ACCEPTAB Arterial Blood Left Radial Gas Puncture Site Arterial 0.3 Blood Carboxyhem oglobin Arterial Blood 0.4 Methemoglobin Blood Gas A-a O2 513.2 H Differential Oxyhemoglobin 97.5 Percent Blood Gas 37.0 Temperature Blood Gas 20.0 Respiration Rate Blood Gas Actual 26 Respiration Rate Blood Gas VENT - AC Modality FiO2 100.0 Blood Gas Tidal 500.0 Volume Blood Gas MD ROOSEVELT Critical Value Read Back Blood Gas [place] Notified Whom Blood Gas 09/09/2018 1:45:23 Notified Time PM Test 09/09/18 14:10 09/09/18 15:28 09/09/18 17:45 09/09/18 19:08 Urine Color YELLOW Urine Clarity CLOUDY A Urine pH 7.0 Urine Specific 1.010 [place] Urine Ketones TRACE A Urine Nitrite NEGATIVE Urine Bilirubin NEGATIVE Urine NEGATIVE Urobilinogen Urine Leukocyte NEGATIVE Esterase Urine 22 H Microscopic RBC Urine 15 H Microscopic WBC Urine Squamous MODERATE Epithelial Cells Urine Renal FEW A Epithelial Cells Urine Bacteria FEW A Urine Hemoglobin 2+ H Urine Glucose 3+ H Urine Total 3+ H Protein Urine Opiates Negative Screen Urine Negative Barbiturates Urine Negative Amphetamines Screen Urine Negative Benzodiazepines Screen Urine Cocaine Negative Screen Urine Negative Cannabinoids POC Venous 2.7 *H Lactate Lactic Acid 3.4 *H Level Blood Gas Blood arterial Specimen Source Arterial Blood 09/09/2018 7:15:15 Date Drawn PM Arterial Blood 7.265 *L pH (Temp corrected) Arterial Blood 43.3 pCO2 (Temp correct) Arterial Blood 65.7 L pO2 (Temp corrected) Arterial Blood 19.7 L HCO3 Arterial Blood -7.7 L Base Excess Arterial Blood 92.2 L Oxygen Saturatio n Brian Test ACCEPTAB Arterial Blood Right Radial Gas Puncture Site Arterial 0.3 Blood Carboxyhem oglobin Arterial Blood 0.3 Methemoglobin Blood Gas A-a O2 608.9 H Differential Oxyhemoglobin 91.6 L Percent Blood Gas 35.0 Temperature Blood Gas 20.0 Respiration Rate Blood Gas Actual 24 Respiration Rate Blood Gas VENT - AC Modality FiO2 100.0 Blood Gas Tidal 500.0 Volume Blood Gas Low 5.0 PEEP Setting Blood Gas 35.0 Inspiratory Pressure Blood Gas JAGJIT DELGADO Critical Value Read Back Blood Gas AA Notified Whom Blood Gas 09/09/2018 7:28:46 Notified Time PM Test 09/09/18 19:40 09/09/18 21:23 09/09/18 22:30 09/09/18 23:24 White Blood 2.5 L Count Red Blood Count 4.48 Hemoglobin 13.5 Hematocrit 41.8 Mean Corpuscular 93.3 Volume Mean Corpuscular 30.1 Hemoglobin Mean Corpuscular 32.3 Hemoglobin Sophy nt Red Cell 13.2 Distribution Width Platelet Count 171 Mean Platelet 10.9 H Volume Immature 0.400 Granulocytes % Neutrophils % Segmented 14 L Neutrophils % (Manual) Band Neutrophils 27 H % (Manual) Lymphocytes % Lymphocytes % 37 (Manual) Monocytes % Monocytes % 11 (Manual) Eosinophils % Basophils % Metamyelocytes % 8 H (manual) Myelocytes % 3 H (Manual) Nucleated Red 0.0 Blood Cells % Immature 0.010 Granulocytes # Neutrophils # Neutrophils # 0.4 L (Manual) Band Neutrophils 0.6 # Lymphocytes 0.9 (Manual) Lymphocytes # Monocytes # Monocytes # 0.2 L (Manual) Eosinophils # Basophils # Metamyelocytes # 0.2 H Myelocytes # 0.0 Nucleated Red Blood Cells # Platelet NORMAL Estimate Giant Platelets 19 H Ovalocytes 1+ Sodium Level 141 Potassium Level 3.5 Chloride Level 112 H Carbon Dioxide 23 Level Anion Gap 6 # Blood Urea 17 Nitrogen Creatinine 0.94 Est Glomerular > 60 Filtrat Rate mL/min Glucose Level 202 Lactic Acid 4.2 *H Level Calcium Level 7.1 L Phosphorus Level 3.8 Magnesium Level 1.8 Troponin I 2.740 *H Bedside Glucose 227 H 186 194 Test 09/10/18 00:44 09/10/18 01:00 09/10/18 01:54 09/10/18 03:21 White Blood 1.3 #L Count Red Blood Count 4.60 Hemoglobin 13.9 Hematocrit 42.6 Mean Corpuscular 92.6 Volume Mean Corpuscular 30.2 Hemoglobin Mean Corpuscular 32.6 Hemoglobin Sophy nt Red Cell 13.4 Distribution Width Platelet Count 173 Mean Platelet 11.1 H Volume Immature 0.800 H Granulocytes % Neutrophils % Segmented 6 L Neutrophils % (Manual) Band Neutrophils 33 H % (Manual) Lymphocytes % Lymphocytes % 39 (Manual) Reactive 1 H Lymphocytes % (Manual) Monocytes % Monocytes % 9 (Manual) Eosinophils % Basophils % Basophils % 1 (Manual) Metamyelocytes % 2 H (manual) Myelocytes % 9 H (Manual) Nucleated Red 0.0 Blood Cells % Immature 0.010 Granulocytes # Neutrophils # Neutrophils # 0.1 L (Manual) Band Neutrophils 0.4 # Lymphocytes 0.5 L (Manual) Lymphocytes # Reactive 0.0 Lymphocytes # Monocytes # Monocytes # 0.1 L (Manual) Eosinophils # Basophils # Basophils # 0.0 (Manual) Metamyelocytes # 0.0 Myelocytes # 0.1 H Nucleated Red Blood Cells # Platelet NORMAL Estimate Giant Platelets 43 H Poikilocytosis 2+ Prothrombin Time 13.4 Prothrombin Time 1.0 Ratio INR 1.01 International Normalized Ratio Activated 30.1 Partial Thrombop last Time Fibrinogen 281.0 Sodium Level 143 Potassium Level 3.0 L Chloride Level 108 Carbon Dioxide 22 Level Anion Gap 13 # Blood Urea 18 Nitrogen Creatinine 0.89 Est Glomerular > 60 Filtrat Rate mL/min Glucose Level 243 H Calcium Level 7.2 L Phosphorus Level 3.2 Magnesium Level 1.7 Creatine Kinase 29075 H Creatine Kinase 0.5 Index Creatinine 48.70 H Kinase MB (Mass) Troponin I 2.980 *H Amylase Level 277 H Lipase 46 Blood Gas Blood arterial Specimen Source Arterial Blood 09/10/2018 1:10:21 Date Drawn AM Arterial Blood 7.265 *L pH (Temp corrected) Arterial Blood 37.9 pCO2 (Temp correct) Arterial Blood 64.9 L pO2 (Temp corrected) Arterial Blood 18.0 L HCO3 Arterial Blood -10.1 L Base Excess Brian Test ACCEPTAB Arterial Blood Right Radial Gas Puncture Site Blood Gas A-a O2 621.8 H Differential Blood Gas 31.9 Temperature Blood Gas 20.0 Respiration Rate Blood Gas Actual 20 Respiration Rate Blood Gas VENT - AC Modality FiO2 100.0 Blood Gas Tidal 500.0 Volume Blood Gas 24.0 Inspiratory Pressure Blood Gas Cherelle Barroso Critical Value Read Back Blood Gas [place]ox[place] Notified Whom Blood Gas 09/10/2018 1:42:49 Notified Time AM Bedside Glucose 195 187 Test 09/10/18 04:30 09/10/18 04:58 09/10/18 06:05 09/10/18 08:11 White Blood 1.5 L Count Red Blood Count 4.55 Hemoglobin 13.7 Hematocrit 42.1 Mean Corpuscular 92.5 Volume Mean Corpuscular 30.1 Hemoglobin Mean Corpuscular 32.5 Hemoglobin Sophy nt Red Cell 13.5 Distribution Width Platelet Count 176 Mean Platelet 11.2 H Volume Immature 0.700 H Granulocytes % Neutrophils % Lymphocytes % Monocytes % Eosinophils % Basophils % Nucleated Red 0.0 Blood Cells % Immature 0.010 Granulocytes # Neutrophils # Lymphocytes # Monocytes # Eosinophils # Basophils # Nucleated Red Blood Cells # Sodium Level 144 Potassium Level 3.3 L Chloride Level 114 H Carbon Dioxide 20 L Level Anion Gap 10 Blood Urea 19 Nitrogen Creatinine 1.17 H Est Glomerular 57 L Filtrat Rate mL/min Glucose Level 172 Calcium Level 7.3 L Magnesium Level 1.7 Total Bilirubin 0.2 Direct Bilirubin 0.00 Indirect 0.2 Bilirubin Aspartate Amino 591 H Transf (AST/SGOT ) Alanine 442 H Aminotransferase (ALT/SGPT) Alkaline 73 Phosphatase Creatine Kinase 62971 H Creatine Kinase 0.4 Index Creatinine 45.40 H Kinase MB (Mass) Troponin I 2.730 *H Total Protein 5.4 L Albumin 3.0 L Globulin 2.40 Albumin/Globulin 1.25 Ratio Bedside Glucose 166 137 112 Subjective 24 Hr Interval Summary Free Text/Dictation Patient remains on hypothermia protocol with scheduled rewarming at 1600. Bradycardic overnight and amiodarone held. Exam/Review of Systems Vital Signs Vitals Vital Signs Date Temp Pulse Resp B/P (MAP) Pulse Ox O2 O2 Flow FiO2 Time Delivery Rate 09/10/18 92.0 20 100/61 100 07:15 (74) 09/10/18 62 06:45 09/10/18 100 04:00 09/10/18 Mechanical 01:15 Ventilator 09/09/18 15.0 14:50 Intake and Output 09/09/18 09/09/18 09/10/18 1414:59 22:59 06:59 IntakeIntake Total 335.99 ml 907.33 ml OutputOutput Total 1300 ml 255 ml BalanceBalance -964.01 ml 652.33 ml Exam General: Intubated and remains unresponsive. on hypothermia protocol HEENT: Atraumatic, normocephalic. The pupils are equal, round and sluggishly reactive Neck: Supple with full range of motion Lungs: Diminished with coarse breath sounds. no wheezing appreciated Heart: Normal S1-S2, Regular rhythm and bradycardic. no murmurs Abdomen: Soft , nontender to palpation, nondistended, No guarding no rebound ten derness , No masses or organomegaly. Extremities: Normal to inspection, no edema no cyanosis Neurologic: unresponsive Medications Medications Current Medications Amiodarone HCl 900 mg/Dextrose 500 ml @ 0 mls/hr Q0M IV Last administered on 09/09/18at 13:14; Admin Dose 2 MLS/HR; Start 09/09/18 at 13:30; Stop 09/10/18 at 13:29 Potassium Chloride/Dextrose/ Sod Cl 1,000 ml @ 75 mls/hr [id number] IV Last administered on 09/09/18 18:28; Admin Dose 75 MLS/HR; Start 09/09/18 at 16:15 Albuterol (Ventolin Hfa) 4 puff Q4H RESP THERAPY INH Last administered on 09/10/18 05:00; Admin Dose 4 PUFF; Start 09/09/18 at 17:00 Albuterol (Ventolin Hfa) 4 puff Q2H RESP THERAPY PRN INH SHORTNESS OF BREATH; Start 09/09/18 at 16:30 Acetaminophen (Tylenol Liquid) 650 mg Q6H PRN NGT PAIN LEVEL 1-3 OR FEVER Last administered on 09/09/18 23:18; Admin Dose 650 MG; Start 09/09/18 at 16:30 Morphine Sulfate (morphine) 2 mg Q4H PRN IV PAIN LEVEL 7-10 Last administered on 09/09/18 20:20; Admin Dose 2 MG; Start 09/09/18 at 16:30 Pantoprazole (Protonix Iv) 40 mg DAILY@06 IV Last administered on 09/10/18 06:32; Admin Dose 40 MG; Start 09/10/18 at 06:00 Piperacillin Sod/ Tazobactam Sod 100 ml @ 200 mls/hr Q8 IVPB Last administered on 09/10/18 06:32; Admin Dose 200 MLS/HR; Start 09/09/18 at 22:00 Midazolam HCl 50 ml @ 1 mls/hr TITRATE IV Last administered on 09/10/18 06:23; Admin Dose 2 MLS/HR; Start 09/09/18 at 18:30 Norepinephrine 250 ml @ 1.875 mls/ hr TITRATE IV Last administered on 09/10/18 04:37; Admin Dose 44.438 MLS/HR; Start 09/09/18 at 19:00; Stop 09/10/18 at 09:00 Fentanyl 100 ml @ 2.5 mls/hr TITRATE IV Last administered on 09/09/18 20:50; Admin Dose 2.5 MLS/HR; Start 09/09/18 at 21:30 Diagnostic Test (Pha) (Accu-Chek) 1 ea Q1H XX Last administered on 09/10/18 08:17; Admin Dose 1 EA; Start 09/09/18 at 22:00 Miscellaneous Information (* Miscellaneous Pharmacy Order) Treatment of Hypoglycemia: 1.BG 51... Per protocol XX ; Start 09/09/18 at 22:00 Dextrose (D50w Syringe) 25 ml Q15M PRN IV DECREASED GLUCOSE; Start 09/09/18 at 22:00 Dextrose (D50w Syringe) 50 ml Q15M PRN IV DECREASED GLUCOSE; Start 09/09/18 at 22:00 Insulin Human Regular 100 unit/ Sodium Chloride 100 ml @ 2 mls/hr PER PROTOCOL IV Last administered on 09/10/18at 00:51; Admin Dose 2 MLS/HR; Start 09/10/18 at 00:30 Vecuronium [place] 100 mg/ Dextrose 100 ml @ 3.25 mls/hr TITRATE IV Last administered on 09/10/18at 03:14; Admin Dose 3.25 MLS/HR; Start 09/10/18 at 02:00 Norepinephrine 16 mg/Dextrose 500 ml @ 1.88 mls/hr TITRATE IV ; Start 09/10/18 at 08:00 Potassium Chloride (Potassium Chloride Pwd/Soln) 20 meq PER PROTOCOL PRN PO POTASSIUM REPLACEMENT PROTOCOL; Start 09/10/18 at 09:00; Status UNV Potassium Chloride (Potassium Chloride Pwd/Soln) 30 meq PER PROTOCOL PRN PO POTA SSIUM REPLACEMENT PROTOCOL; Start 09/10/18 at 09:00; Status UNV Potassium Chloride (Potassium Chloride Pwd/Soln) 40 meq PER PROTOCOL PRN PO POTASSIUM REPLACEMENT PROTOCOL; Start 09/10/18 at 09:00; Status UNV OZZIE ALVAREZ MD Sep 10, 2018 08:39
[2018-09-10] MEDS ORDERED: MAGNESIUM SULFATE 2 GM/50 ML 50 ML IVPB ONE (09:00)
[2018-09-10] MEDS ORDERED: NA BICARBONATE 8.4% 50 ML SYG IV ONE (09:30)
[2018-09-10] MEDS ORDERED: ARTIFICIAL TEARS 15 ML OPH BOTH EYES PRN (09:30)
[2018-09-10] MEDS: FENTAnyl (DRIP) 1000 mcg/100mL 100 ML IV SCH (09:45)
--- NOTE | 2018-09-10 09:48 | CONS ---
Date/Time of Note Date/Time of Note DATE: 09/10/18 TIME: 09:44 Assessment/Plan Assessment/Plan Assessment/Plan Chest x-ray showing pulmonary edema versus pneumonia involving right lung. Ventilator setting; AC of 20, tidal volume 500, PEEP of 5, 100% FiO2. Assessment and recommendations; 1. Patient admitted with cardiac arrest with V. fib status post CPR with revival of vital signs. Currently on hypothermia protocol. 2. Severe metabolic acidosis. 3. Leukopenia. Etiology is uncertain. 4. Mild thrombocytopenia. 5. Non-ST elevation ND. 6. History of hypertension. 7. Hypokalemia on admission, possibly precipitating factor for V. fib. Administer sodium bicarbonate. Start sodium bicarbonate drip. Will obtain follow-up ABG in 2 hours. Continue current supportive care. Obtain follow-up chest x-ray 24 hours. Difficult to rule out anoxic brain injury at this point. Mental status to be assessed once patient is off hypothermia protocol. 40 minutes of critical care time was spent evaluating the patient. Result Diagram: 09/10/18 0430 09/10/18 0430 Results 24hrs Laboratory Tests Test 09/09/18 12:37 09/09/18 13:03 09/09/18 13:04 09/09/18 13:06 Bedside Glucose 90 White Blood 2.6 L Count Red Blood Count 4.11 L Hemoglobin 12.4 Hematocrit 39.4 Mean 95.9 Corpuscular Volume Mean 30.2 Corpuscular Hemoglobin Mean 31.5 L Corpuscular Hemoglobin Conc ent Red Cell 12.9 Distribution Width Platelet Count 146 Mean Platelet 11.1 H Volume Immature 2.300 H Granulocytes % Neutrophils % Lymphocytes % Lymphocytes % 85 H (Manual) Reactive 10 H Lymphocytes % (Manual) Monocytes % Monocytes % 2 (Manual) Eosinophils % Basophils % Basophils % 1 (Manual) Metamyelocytes 1 H % (manual) Myelocytes % 1 H (Manual) Nucleated Red 1 H Blood Cells % Immature 0.060 H Granulocytes # Neutrophils # Lymphocytes 2.2 (Manual) Lymphocytes # Reactive 0.2 H Lymphocytes # Monocytes # Monocytes # 0.0 L (Manual) Eosinophils # Basophils # Basophils # 0.0 (Manual) Metamyelocytes 0.0 # Myelocytes # 0.0 Nucleated Red Blood Cells # Platelet NORMAL Estimate Giant Platelets 3 H Macrocytosis 1+ Spherocytes 1+ Prothrombin 13.4 Time Prothrombin 1.0 Time Ratio INR 1.01 International Normalized Rati o Activated 33.1 Partial Thrombo plast Time Sodium Level 142 Potassium Level 2.1 *L Chloride Level 99 Carbon Dioxide 19 L Level Anion Gap 24 H Blood Urea 12 Nitrogen Creatinine 0.89 Est Glomerular > 60 Filtrat Rate mL/min Glucose Level 249 H Hemoglobin A1c 5.4 Calcium Level 7.9 L Magnesium Level 2.2 Total Bilirubin 0.0 L Direct 0.00 Bilirubin Indirect 0.0 Bilirubin Aspartate Amino 437 H Transf (AST/SGO T) Alanine 455 H Aminotransferas e (ALT/SGPT) Alkaline 79 Phosphatase Troponin I 0.014 Total Protein 6.0 L Albumin 3.4 Globulin 2.60 Albumin/Globuli 1.30 n Ratio Thyroid 3.100 Stimulating Hormone (TSH) Ethyl Alcohol < 10.0 H Level POC Venous 10.0 *H Lactate Blood Gas Blood arterial Specimen Source Arterial Blood 09/09/2018 1:32:0 Date Drawn 0 PM Arterial Blood 7.204 *L pH (Temp corrected ) Arterial Blood 49.3 H pCO2 (Temp correct) Arterial Blood 150.5 H pO2 (Temp corrected ) Arterial Blood 19.0 L HCO3 Arterial Blood -9.0 L Base Excess Arterial Blood 98.2 H Oxygen Saturati on Brian Test ACCEPTAB Arterial Blood Left Radial Gas Puncture Site Arterial 0.3 Blood Carboxyhe moglobin Arterial Blood 0.4 Methemoglobin Blood Gas A-a 513.2 H O2 Differential Oxyhemoglobin 97.5 Percent Blood Gas 37.0 Temperature Blood Gas 20.0 Respiration Rate Blood Gas 26 Actual Respiration Rat e Blood Gas VENT - AC Modality FiO2 100.0 Blood Gas Tidal 500.0 Volume Blood Gas MD ROOSEVELT Critical Value Read Back Blood Gas [place] Notified Whom Blood Gas 09/09/2018 1:45:2 Notified Time 3 PM Test 09/09/18 14:10 09/09/18 15:28 09/09/18 17:45 09/09/18 19:08 Urine Color YELLOW Urine Clarity CLOUDY A Urine pH 7.0 Urine Specific 1.010 [place] Urine Ketones TRACE A Urine Nitrite NEGATIVE Urine Bilirubin NEGATIVE Urine NEGATIVE Urobilinogen Urine Leukocyte NEGATIVE Esterase Urine 22 H Microscopic RBC Urine 15 H Microscopic WBC Urine Squamous MODERATE Epithelial Cell s Urine Renal FEW A Epithelial Cells Urine Bacteria FEW A Urine 2+ H Hemoglobin Urine Glucose 3+ H Urine Total 3+ H Protein Urine Opiates Negative Screen Urine Negative Barbiturates Urine Negative Amphetamines Screen Urine Negative Benzodiazepines Screen Urine Cocaine Negative Screen Urine Negative Cannabinoids POC Venous 2.7 *H Lactate Lactic Acid 3.4 *H Level Blood Gas Blood arterial Specimen Source Arterial Blood 09/09/2018 7:15:1 Date Drawn 5 PM Arterial Blood 7.265 *L pH (Temp corrected ) Arterial Blood 43.3 pCO2 (Temp correct) Arterial Blood 65.7 L pO2 (Temp corrected ) Arterial Blood 19.7 L HCO3 Arterial Blood -7.7 L Base Excess Arterial Blood 92.2 L Oxygen Saturati on Brian Test ACCEPTAB Arterial Blood Right Radial Gas Puncture Site Arterial 0.3 Blood Carboxyhe moglobin Arterial Blood 0.3 Methemoglobin Blood Gas A-a 608.9 H O2 Differential Oxyhemoglobin 91.6 L Percent Blood Gas 35.0 Temperature Blood Gas 20.0 Respiration Rate Blood Gas 24 Actual Respiration Rat e Blood Gas VENT - AC Modality FiO2 100.0 Blood Gas Tidal 500.0 Volume Blood Gas Low 5.0 PEEP Setting Blood Gas 35.0 Inspiratory Pressure Blood Gas JAGJIT DELGADO Critical Value Read Back Blood Gas AA Notified Whom Blood Gas 09/09/2018 7:28:4 Notified Time 6 PM Test 09/09/18 19:40 09/09/18 21:23 09/09/18 22:30 09/09/18 23:24 White Blood 2.5 L Count Red Blood Count 4.48 Hemoglobin 13.5 Hematocrit 41.8 Mean 93.3 Corpuscular Volume Mean 30.1 Corpuscular Hemoglobin Mean 32.3 Corpuscular Hemoglobin Conc ent Red Cell 13.2 Distribution Width Platelet Count 171 Mean Platelet 10.9 H Volume Immature 0.400 Granulocytes % Neutrophils % Segmented 14 L Neutrophils % (Manual) Band 27 H Neutrophils % (Manual) Lymphocytes % Lymphocytes % 37 (Manual) Monocytes % Monocytes % 11 (Manual) Eosinophils % Basophils % Metamyelocytes 8 H % (manual) Myelocytes % 3 H (Manual) Nucleated Red 0.0 Blood Cells % Immature 0.010 Granulocytes # Neutrophils # Neutrophils # 0.4 L (Manual) Band 0.6 Neutrophils # Lymphocytes 0.9 (Manual) Lymphocytes # Monocytes # Monocytes # 0.2 L (Manual) Eosinophils # Basophils # Metamyelocytes 0.2 H # Myelocytes # 0.0 Nucleated Red Blood Cells # Platelet NORMAL Estimate Giant Platelets 19 H Ovalocytes 1+ Sodium Level 141 Potassium Level 3.5 Chloride Level 112 H Carbon Dioxide 23 Level Anion Gap 6 # Blood Urea 17 Nitrogen Creatinine 0.94 Est Glomerular > 60 Filtrat Rate mL/min Glucose Level 202 Lactic Acid 4.2 *H Level Calcium Level 7.1 L Phosphorus 3.8 Level Magnesium Level 1.8 Troponin I 2.740 *H Bedside Glucose 227 H 186 194 Test 09/10/18 00:44 09/10/18 01:00 09/10/18 01:54 09/10/18 03:21 White Blood 1.3 #L Count Red Blood Count 4.60 Hemoglobin 13.9 Hematocrit 42.6 Mean 92.6 Corpuscular Volume Mean 30.2 Corpuscular Hemoglobin Mean 32.6 Corpuscular Hemoglobin Conc ent Red Cell 13.4 Distribution Width Platelet Count 173 Mean Platelet 11.1 H Volume Immature 0.800 H Granulocytes % Neutrophils % Segmented 6 L Neutrophils % (Manual) Band 33 H Neutrophils % (Manual) Lymphocytes % Lymphocytes % 39 (Manual) Reactive 1 H Lymphocytes % (Manual) Monocytes % Monocytes % 9 (Manual) Eosinophils % Basophils % Basophils % 1 (Manual) Metamyelocytes 2 H % (manual) Myelocytes % 9 H (Manual) Nucleated Red 0.0 Blood Cells % Immature 0.010 Granulocytes # Neutrophils # Neutrophils # 0.1 L (Manual) Band 0.4 Neutrophils # Lymphocytes 0.5 L (Manual) Lymphocytes # Reactive 0.0 Lymphocytes # Monocytes # Monocytes # 0.1 L (Manual) Eosinophils # Basophils # Basophils # 0.0 (Manual) Metamyelocytes 0.0 # Myelocytes # 0.1 H Nucleated Red Blood Cells # Platelet NORMAL Estimate Giant Platelets 43 H Poikilocytosis 2+ Prothrombin 13.4 Time Prothrombin 1.0 Time Ratio INR 1.01 International Normalized Rati o Activated 30.1 Partial Thrombo plast Time Fibrinogen 281.0 Sodium Level 143 Potassium Level 3.0 L Chloride Level 108 Carbon Dioxide 22 Level Anion Gap 13 # Blood Urea 18 Nitrogen Creatinine 0.89 Est Glomerular > 60 Filtrat Rate mL/min Glucose Level 243 H Calcium Level 7.2 L Phosphorus 3.2 Level Magnesium Level 1.7 Creatine Kinase 35639 H Creatine Kinase 0.5 Index Creatinine 48.70 H Kinase MB (Mass) Troponin I 2.980 *H Amylase Level 277 H Lipase 46 Blood Gas Blood arterial Specimen Source Arterial Blood 09/10/2018 1:10:2 Date Drawn 1 AM Arterial Blood 7.265 *L pH (Temp corrected ) Arterial Blood 37.9 pCO2 (Temp correct) Arterial Blood 64.9 L pO2 (Temp corrected ) Arterial Blood 18.0 L HCO3 Arterial Blood -10.1 L Base Excess Brian Test ACCEPTAB Arterial Blood Right Radial Gas Puncture Site Blood Gas A-a 621.8 H O2 Differential Blood Gas 31.9 Temperature Blood Gas 20.0 Respiration Rate Blood Gas 20 Actual Respiration Rat e Blood Gas VENT - AC Modality FiO2 100.0 Blood Gas Tidal 500.0 Volume Blood Gas 24.0 Inspiratory Pressure Blood Gas Cherelle Barroso Critical Value Read Back Blood Gas JJordan Notified Whom Blood Gas 09/10/2018 1:42:4 Notified Time 9 AM Bedside Glucose 195 187 Test 09/10/18 04:30 09/10/18 04:58 09/10/18 06:05 09/10/18 08:11 White Blood 1.5 L Count Red Blood Count 4.55 Hemoglobin 13.7 Hematocrit 42.1 Mean 92.5 Corpuscular Volume Mean 30.1 Corpuscular Hemoglobin Mean 32.5 Corpuscular Hemoglobin Conc ent Red Cell 13.5 Distribution Width Platelet Count 176 Mean Platelet 11.2 H Volume Immature 0.700 H Granulocytes % Neutrophils % Segmented 2 L Neutrophils % (Manual) Band 37 H Neutrophils % (Manual) Lymphocytes % Lymphocytes % 40 (Manual) Reactive 4 H Lymphocytes % (Manual) Monocytes % Monocytes % 7 (Manual) Eosinophils % Eosinophils % 1 (Manual) Basophils % Basophils % 1 (Manual) Metamyelocytes 2 H % (manual) Myelocytes % 6 H (Manual) Nucleated Red 0.0 Blood Cells % Immature 0.010 Granulocytes # Neutrophils # Neutrophils # 0.0 L (Manual) Band 0.5 Neutrophils # Lymphocytes 0.6 L (Manual) Lymphocytes # Reactive 0.0 Lymphocytes # Monocytes # Monocytes # 0.1 L (Manual) Eosinophils # Basophils # Basophils # 0.0 (Manual) Metamyelocytes 0.0 # Myelocytes # 0.0 Nucleated Red Blood Cells # Platelet NORMAL Estimate Giant Platelets 35 H Poikilocytosis 1+ Anisocytosis 1+ Sodium Level 144 Potassium Level 3.3 L Chloride Level 114 H Carbon Dioxide 20 L Level Anion Gap 10 Blood Urea 19 Nitrogen Creatinine 1.17 H Est Glomerular 57 L Filtrat Rate mL/min Glucose Level 172 Calcium Level 7.3 L Magnesium Level 1.7 Total Bilirubin 0.2 Direct 0.00 Bilirubin Indirect 0.2 Bilirubin Aspartate Amino 591 H Transf (AST/SGO T) Alanine 442 H Aminotransferas e (ALT/SGPT) Alkaline 73 Phosphatase Creatine Kinase 90887 H Creatine Kinase 0.4 Index Creatinine 45.40 H Kinase MB (Mass) Troponin I 2.730 *H Total Protein 5.4 L Albumin 3.0 L Globulin 2.40 Albumin/Globuli 1.25 n Ratio Bedside Glucose 166 137 112 Test 09/10/18 08:32 09/10/18 09:05 Blood Gas Blood arterial Specimen Source Arterial Blood 09/10/2018 9:00:3 Date Drawn 5 AM Arterial Blood 7.215 *L pH (Temp corrected ) Arterial Blood 37.4 pCO2 (Temp correct) Arterial Blood 69.2 L pO2 (Temp corrected ) Arterial Blood 15.6 L HCO3 Arterial Blood -12.7 L Base Excess Arterial Blood 95.4 Oxygen Saturati on Brian Test ACCEPTAB Arterial Blood Right Radial Gas Puncture Site Arterial 0.3 Blood Carboxyhe moglobin Arterial Blood 0.3 Methemoglobin Blood Gas A-a 616.2 H O2 Differential Oxyhemoglobin 94.8 Percent Blood Gas 32.8 Temperature Blood Gas 20.0 Respiration Rate Blood Gas 20 Actual Respiration Rat e Blood Gas VENT - AC Modality FiO2 100.0 Blood Gas Tidal 500.0 Volume Blood Gas Low 5.0 PEEP Setting Blood Gas DANIELLE DELGADO Critical Value Read Back Blood Gas TM Notified Whom Blood Gas 09/10/2018 9:16:3 Notified Time 6 AM Bedside Glucose 147 Consultation Date/Type/Reason Admit Date/Time 09/09/18 1640 Date of Consultation: Sep 10, 2018 Type of Consult Pulmonary/critical care History of presenting illness; patient is a 63-year-old lady who was brought into the hospital after found unresponsive. Patient underwent CPR and was in V. fib. Patient was successfully resuscitated intubated and transferred to ICU. By the time I saw her, patient is on mechanical ventilation and on hypothermia protocol. Patient also has remained hypotensive and on high-dose pressor support. Past medical history; 1. Hypertension. Medications; reviewed. Patient is currently on Versed 2 mg/h, fentanyl 50 mics per hour, Levophed 24 mics per minute, insulin drip 0.5 units/h, patient also is on hypothermia protocol with dialysis per protocol. Allergies; unknown. Family history, social history, occupational history is not available. Review of system; unable to be obtained. General exam; elderly female, orally intubated, paralyzed and sedated. Cur rently no distress. Past Medical History Medical History: hypertension Medications Current Medications Amiodarone HCl 900 mg/Dextrose 500 ml @ 0 mls/hr Q0M IV Last administered on 09/09/18 13:14; Admin Dose 2 MLS/HR; Start 09/09/18 at 13:30; Stop 09/10/18 at 13:29 Potassium Chloride/Dextrose/ Sod Cl 1,000 ml @ 75 mls/hr [id number] IV Last administered on 09/09/18 18:28; Admin Dose 75 MLS/HR; Start 09/09/18 at 16:15 Albuterol (Ventolin Hfa) 4 puff Q4H RESP THERAPY INH Last administered on 09/10/18 05:00; Admin Dose 4 PUFF; Start 09/09/18 at 17:00 Albuterol (Ventolin Hfa) 4 puff Q2H RESP THERAPY PRN INH SHORTNESS OF BREATH; Start 09/09/18 at 16:30 Acetaminophen (Tylenol Liquid) 650 mg Q6H PRN NGT PAIN LEVEL 1-3 OR FEVER Last administered on 09/09/18 23:18; Admin Dose 650 MG; Start 09/09/18 at 16:30 Morphine Sulfate (morphine) 2 mg Q4H PRN IV PAIN LEVEL 7-10 Last administered on 09/09/18 20:20; Admin Dose 2 MG; Start 09/09/18 at 16:30 Pantoprazole (Protonix Iv) 40 mg DAILY@06 IV Last administered on 09/10/18 06: 32; Admin Dose 40 MG; Start 09/10/18 at 06:00 Piperacillin Sod/ Tazobactam Sod 100 ml @ 200 mls/hr Q8 IVPB Last administered on 09/10/18 06:32; Admin Dose 200 MLS/HR; Start 09/09/18 at 22:00 Midazolam HCl 50 ml @ 1 mls/hr TITRATE IV Last administered on 09/10/18 06:23; Admin Dose 2 MLS/HR; Start 09/09/18 at 18:30 Fentanyl 100 ml @ 2.5 mls/hr TITRATE IV Last administered on 09/09/18at 20:50; Admin Dose 2.5 MLS/HR; Start 09/09/18 at 21:30 Diagnostic Test (Pha) (Accu-Chek) 1 ea Q1H XX Last administered on 09/10/18at 09:25; Admin Dose 1 EA; Start 09/09/18 at 22:00 Miscellaneous Information (* Miscellaneous Pharmacy Order) Treatment of Hypoglycemia: 1.BG 51... Per protocol XX ; Start 09/09/18 at 22:00 Dextrose (D50w Syringe) 25 ml Q15M PRN IV DECREASED GLUCOSE; Start 09/09/18 at 22:00 Dextrose (D50w Syringe) 50 ml Q15M PRN IV DECREASED GLUCOSE; Start 09/09/18 at 22:00 Insulin Human Regular 100 unit/ Sodium Chloride 100 ml @ 2 mls/hr PER PROTOCOL IV Last administered on 09/10/18at 00:51; Admin Dose 2 MLS/HR; Start 09/10/18 at 00:30 Vecuronium [place] 100 mg/ Dextrose 100 ml @ 3.25 mls/hr TITRATE IV Last administered on 09/10/18at 03:14; Admin Dose 3.25 MLS/HR; Start 09/10/18 at 02:00 Norepinephrine 16 mg/Dextrose 500 ml @ 1.88 mls/hr TITRATE IV ; Start 09/10/18 at 08:00 Potassium Chloride (Potassium Chloride Pwd/Soln) 20 meq PER PROTOCOL PRN PO POTASSIUM REPLACEMENT PROTOCOL; Start 09/10/18 at 09:00 Potassium Chloride (Potassium Chloride Pwd/Soln) 30 meq PER PROTOCOL PRN PO POTASSIUM REPLACEMENT PROTOCOL; Start 09/10/18 at 09:00 Potassium Chloride (Potassium Chloride Pwd/Soln) 40 meq PER PROTOCOL PRN PO POTASSIUM REPLACEMENT PROTOCOL; Start 09/10/18 at 09:00 Magnesium Sulfate 50 ml @ 25 mls/hr ONCE ONCE IVPB ; Start 09/10/18 at 09:00; Stop 09/10/18 at 10:59 Eye Lubricant (Akwa Oint) 1 applic Q6 BOTH EYES ; Start 09/10/18 at 12:00 Eye Lubricant (Artificial Tears Oph) 2 drop Q6H PRN BOTH EYES DRY EYES; Start 09/10/18 at 09:30 Sodium Bicarbonate 100 meq/Dextrose 1,000 ml @ 75 mls/hr [id number] IV ; Start 09/10/18 at 10:30 Allergies: Coded Allergies: Unknown: Unable to obtain (Unverified , 09/09/18) Past Surgical History Past Surgical Hx: other (unknown) Social History Alcohol Use: other (unknown) Smoking Status: Unknown if ever smoked Drug Use: other (unknown) Exam/Review of Systems Vital Signs Vitals Vital Signs Date Temp Pulse Resp B/P (MAP) Pulse Ox O2 O2 Flow FiO2 Time Delivery Rate 09/10/18 54 08:00 09/10/18 92.0 20 100/61 100 07:15 (74) 09/10/18 100 04:00 09/10/18 Mechanical 01:15 Ventilator 09/09/18 15.0 14:50 Intake and Output 09/09/18 09/09/18 09/10/18 1515:00 23:00 07:00 IntakeIntake Total 554.32 ml 916 ml OutputOutput Total 1360 ml 235 ml BalanceBalance -805.68 ml 681 ml Exam H EENT exam; supple neck, positive JVD. No lymphadenopathy. Midline trachea. No thyromegaly. Orally intubated. Pupils are small bilaterally. Chest exam; diminished breath sounds bilaterally. S1-S2 audible, no murmurs. Regular rhythm. Abdomen exam; soft, no organomegaly. Bowel sounds are absent. Extremity exam; no edema. [employer] exam; patient is sedated and paralyzed. Medications Medications Current Medications Amiodarone HCl 900 mg/Dextrose 500 ml @ 0 mls/hr Q0M IV Last administered on 09/09/18at 13:14; Admin Dose 2 MLS/HR; Start 09/09/18 at 13:30; Stop 09/10/18 at 13:29 Potassium Chloride/Dextrose/ Sod Cl 1,000 ml @ 75 mls/hr [id number] IV Last administered on 09/09/18at 18:28; Admin Dose 75 MLS/HR; Start 09/09/18 at 16:15 Albuterol (Ventolin Hfa) 4 puff Q4H RESP THERAPY INH Last administered on 09/10/18at 05:00; Admin Dose 4 PUFF; Start 09/09/18 at 17:00 Albuterol (Ventolin Hfa) 4 puff Q2H RESP THERAPY PRN INH SHORTNESS OF BREATH; Start 09/09/18 at 16:30 Acetaminophen (Tylenol Liquid) 650 mg Q6H PRN NGT PAIN LEVEL 1-3 OR FEVER Last administered on 09/09/18 23:18; Admin Dose 650 MG; Start 09/09/18 at 16:30 Morphine Sulfate (morphine) 2 mg Q4H PRN IV PAIN LEVEL 7-10 Last administered on 09/09/18 20:20; Admin Dose 2 MG; Start 09/09/18 at 16:30 Pantoprazole (Protonix Iv) 40 mg DAILY@06 IV Last administered on 09/10/18 06:32; Admin Dose 40 MG; Start 09/10/18 at 06:00 Piperacillin Sod/ Tazobactam Sod 100 ml @ 200 mls/hr Q8 IVPB Last administered on 09/10/18 06:32; Admin Dose 200 MLS/HR; Start 09/09/18 at 22:00 Midazolam HCl 50 ml @ 1 mls/hr TITRATE IV Last administered on 09/10/18 06:23; Admin Dose 2 MLS/HR; Start 09/09/18 at 18:30 Fentanyl 100 ml @ 2.5 mls/hr TITRATE IV Last administered on 09/09/18at 20:50; Admin Dose 2.5 MLS/HR; Start 09/09/18 at 21:30 Diagnostic Test (Pha) (Accu-Chek) 1 ea Q1H XX Last administered on 09/10/18at 09:25; Admin Dose 1 EA; Start 09/09/18 at 22:00 Miscellaneous Information (* Miscellaneous Pharmacy Order) Treatment of Hypoglycemia: 1.BG 51... Per protocol XX ; Start 09/09/18 at 22:00 Dextrose (D50w Syringe) 25 ml Q15M PRN IV DECREASED GLUCOSE; Start 09/09/18 at 22:00 Dextrose (D50w Syringe) 50 ml Q15M PRN IV DECREASED GLUCOSE; Start 09/09/18 at 22:00 Insulin Human Regular 100 unit/ Sodium Chloride 100 ml @ 2 mls/hr PER PROTOCOL IV Last administered on 09/10/18at 00:51; Admin Dose 2 MLS/HR; Start 09/10/18 at 00:30 Vecuronium [place] 100 mg/ Dextrose 100 ml @ 3.25 mls/hr TITRATE IV Last administered on 09/10/18at 03:14; Admin Dose 3.25 MLS/HR; Start 09/10/18 at 02:00 Norepinephrine 16 mg/Dextrose 500 ml @ 1.88 mls/hr TITRATE IV ; Start 09/10/18 at 08:00 Potassium Chloride (Potassium Chloride Pwd/Soln) 20 meq PER PROTOCOL PRN PO POTASSIUM REPLACEMENT PROTOCOL; Start 09/10/18 at 09:00 Potassium Chloride (Potassium Chloride Pwd/Soln) 30 meq PER PROTOCOL PRN PO POTASSIUM REPLACEMENT PROTOCOL; Start 09/10/18 at 09:00 Potassium Chloride (Potassium Chloride Pwd/Soln) 40 meq PER PROTOCOL PRN PO POTASSIUM REPLACEMENT PROTOCOL; Start 09/10/18 at 09:00 Magnesium Sulfate 50 ml @ 25 mls/hr ONCE ONCE IVPB ; Start 09/10/18 at 09:00; Stop 09/10/18 at 10:59 Eye Lubricant (Akwa Oint) 1 applic Q6 BOTH EYES ; Start 09/10/18 at 12:00 Eye Lubricant (Artificial Tears Oph) 2 drop Q6H PRN BOTH EYES DRY EYES; Start 09/10/18 at 09:30 Sodium Bicarbonate 100 meq/Dextrose 1,000 ml @ 75 mls/hr [id number] IV ; Start 09/10/18 at 10:30 ANABELLA LANTIGUA Sep 10, 2018 09:48
[2018-09-10] MEDS: SODIUM BICARBONATE (IV ADD) 100 MEQ in DEXTROSE 5% 1,000 ML IV SCH ×2 (11:07→23:08)
[2018-09-10] MEDS: OCULAR LUBRICANT 3.5 GM OPH OINT BOTH EYES SCH ×3 (11:56→23:08)
--- NOTE | 2018-09-10 14:38 | RADRPT ---
Echocardiogram Report Patient Name: DIONNE SOLIS Gender: Female Date: 1955 Study Date: 10-Sep-2018 Child Life Specialist: Sherif Colón RDCS Location: 110 Ref. Physician: OZZIE ALVAREZ Quality: Adequate Procedures: Transthoracic echocardiogram with complete 2D, M-Mode, and doppler examination. Indications: Evaluate Left Ventricular function. s/p Cardiac Arrest. 2D/M Mode Doppler Measurement Value Normal Ranges Measurement Value Normal Ranges LVIDd 2D 3.7 3.5 - 5.6 cm AV Peak Kaleb 1.1 m/sec LVIDs 2D 3.3 2.1 - 4.1 cm AV Peak PG 5.0 mmHg LVPWd 2D 1.4 0.6 - 1.1 cm LVOT Peak Kaleb 0.7 m/sec IVSd 2D 1.4 0.6 - 1.1 cm LVOT Peak PG 2.0 mmHg AoR Diam 2D 2.6 2.0 - 3.7 cm MV E Peak Kaleb 0.5 m/sec LA/Ao 2D 1 0 - 1 MV A Peak Kaleb 0.5 m/sec EDV 2D 70.2 cm3 MV E/A 1.0 ESV 2D 55.6 cm3 MV Decel Time 120 msec LA Dimen 2D 2.7 2.3 - 4.0 cm MV E/A 1.0 TR Peak Kaleb 2.1 m/sec TR Peak PG 17.0 mmHg RVSP 27.0 mmHg RA Pressure 10.0 Findings Left Ventricle: Normal left ventricular cavity size. Moderate concentric left ventricular hypertrophy. Severe global left ventricular systolic dysfunction. Ejection fraction is visually estimated at 20 %. Right Ventricle: Normal right ventricular size. Normal right ventricular systolic function. Left Atrium: The left atrium is normal in size. Right Atrium: The right atrium is normal in size. Mitral Valve: Mitral valve leaflets appear mildly thickened. Mild mitral annular calcification. Trace mitral regurgitation. Aortic Valve: No significant aortic stenosis or insufficiency. Aortic cusps appear mildly calcified. Tricuspid Valve: Normal appearance of the tricuspid valve. Estimated peak PA systolic pressure 27 mmHg. There is mild tricuspid regurgitation. Pulmonic Valve: Normal pulmonic valve appearance. There is trace pulmonic regurgitation. Pericardium: Normal pericardium with no significant pericardial effusion. Aorta: Normal aortic root. IVC: Dilated IVC without respiratory collapse, however, patient on ventilator. Conclusions Normal left ventricular cavity size. Moderate concentric left ventricular hypertrophy. Severe global left ventricular systolic dysfunction. Ejection fraction is visually estimated at 20 %. Mitral valve leaflets appear mildly thickened. Mild mitral annular calcification. Trace mitral regurgitation. No significant aortic stenosis or insufficiency. Aortic cusps appear mildly calcified. Normal appearance of the tricuspid valve. Estimated peak PA systolic pressure 27 mmHg. There is mild tricuspid regurgitation. Dilated IVC without respiratory collapse, however, patient on ventilator. Electronically Signed By: James Graham 10-Sep-2018 14:38:24 -0800 Patient Name: DIONNE SOLIS Study Date: 10-Sep-2018 [id number]
--- NOTE | 2018-09-10 16:49 | CONS ---
Date/Time of Note Date/Time of Note DATE: 09/10/18 TIME: 16:42 Consult Date/Type/Reason Admit Date/Time Sep 09, 2018 at 16:10 Initial Consult Date 09/10/18 Type of Consultation: cv Requesting Provider: OZZIE ALVAREZ MD Subjective Interventional cardiology follow-up progress note/critical care note Subjective: Case discussed with the staff and rhythm was reviewed. Patient remains in sinus rhythm sinus bradycardia Patient remains in hypothermia protocol pt has been hypotensive and on levophed now. pt remains nonverbal O: General: Status post intubation on the vent HEENT: NC/AT. pupils are equal. round. NECK: no stridor. CV: RRR. systolic murmur; no gallop or rubs. PULM: no wheezing + rhonchi. GI: SOFT, NT, ND, no rebound or guarding Extremity: trace B/L LE edema. no clubbing. neuro: Sedated and unable to respond to verbal stimulus. Has some movement of the upper extremity though Psych: calm rectal: deferred CXR 1. Cardiomegaly and mild failure. 2. Superimposed dense right central and mid lung pneumonia, similar in a ppearance to the prior examination. 3. Recommend advancing nasogastric tube about [address] tip and side port well within the gastric lumen, with re-imaging. echo reviewed Normal left ventricular cavity size. Moderate concentric left ventricular hypertrophy. Severe global left ventricular systolic dysfunction. Ejection fraction is visually estimated at 20 %. Mitral valve leaflets appear mildly thickened. Mild mitral annular calcification. Trace mitral regurgitation. No significant aortic stenosis or insufficiency. Aortic cusps appear mildly calcified. Normal appearance of the tricuspid valve. Estimated peak PA systolic pressure 27 mmHg. There is mild tricuspid regurgitation. Dilated IVC without respiratory collapse, however, patient on ventilator. Objective Vital Signs Date Temp Pulse Resp B/P (MAP) Pulse Ox O2 O2 Flow FiO2 Time Delivery Rate 09/10/18 49 20 105/77 16:15 (86) 09/10/18 91.1 16:00 09/10/18 100 80 15:00 09/10/18 Mechanical 01:15 Ventilator 09/09/18 15.0 14:50 Intake and Output 09/09/18 09/09/18 09/10/18 1515:00 23:00 07:00 IntakeIntake Total 554.32 ml 916 ml OutputOutput Total 1360 ml 235 ml BalanceBalance -805.68 ml 681 ml Results/Medications Result Diagram: 09/10/18 1152 09/10/18 1152 Results 24 hrs Laboratory Tests Test 09/09/18 17:45 09/09/18 19:08 09/09/18 19:40 09/09/18 21:23 Lactic Acid 3.4 *H 4.2 *H Level Blood Gas Blood arterial Specimen Source Arterial Blood 09/09/2018 7:15:1 Date Drawn 5 PM Arterial Blood 7.265 *L pH (Temp corrected ) Arterial Blood 43.3 pCO2 (Temp correct) Arterial Blood 65.7 L pO2 (Temp corrected ) Arterial Blood 19.7 L HCO3 Arterial Blood -7.7 L Base Excess Arterial Blood 92.2 L Oxygen Saturati on Brian Test ACCEPTAB Arterial Blood Right Radial Gas Puncture Site Arterial 0.3 Blood Carboxyhe moglobin Arterial Blood 0.3 Methemoglobin Blood Gas A-a 608.9 H O2 Differential Oxyhemoglobin 91.6 L Percent Blood Gas 35.0 Temperature Blood Gas 20.0 Respiration Rate Blood Gas 24 Actual Respiration Rat e Blood Gas VENT - AC Modality FiO2 100.0 Blood Gas Tidal 500.0 Volume Blood Gas Low 5.0 PEEP Setting Blood Gas 35.0 Inspiratory Pressure Blood Gas JAGJIT DELGADO Critical Value Read Back Blood Gas AA Notified Whom Blood Gas 09/09/2018 7:28:4 Notified Time 6 PM White Blood 2.5 L Count Red Blood Count 4.48 Hemoglobin 13.5 Hematocrit 41.8 Mean 93.3 Corpuscular Volume Mean 30.1 Corpuscular Hemoglobin Mean 32.3 Corpuscular Hemoglobin Conc ent Red Cell 13.2 Distribution Width Platelet Count 171 Mean Platelet 10.9 H Volume Immature 0.400 Granulocytes % Neutrophils % Segmented 14 L Neutrophils % (Manual) Band 27 H Neutrophils % (Manual) Lymphocytes % Lymphocytes % 37 (Manual) Monocytes % Monocytes % 11 (Manual) Eosinophils % Basophils % Metamyelocytes 8 H % (manual) Myelocytes % 3 H (Manual) Nucleated Red 0.0 Blood Cells % Immature 0.010 Granulocytes # Neutrophils # Neutrophils # 0.4 L (Manual) Band 0.6 Neutrophils # Lymphocytes 0.9 (Manual) Lymphocytes # Monocytes # Monocytes # 0.2 L (Manual) Eosinophils # Basophils # Metamyelocytes 0.2 H # Myelocytes # 0.0 Nucleated Red Blood Cells # Platelet NORMAL Estimate Giant Platelets 19 H Ovalocytes 1+ Sodium Level 141 Potassium Level 3.5 Chloride Level 112 H Carbon Dioxide 23 Level Anion Gap 6 # Blood Urea 17 Nitrogen Creatinine 0.94 Est Glomerular > 60 Filtrat Rate mL/min Glucose Level 202 Calcium Level 7.1 L Phosphorus 3.8 Level Magnesium Level 1.8 Troponin I 2.740 *H Bedside Glucose 227 H Test 09/09/18 22:30 09/09/18 23:24 09/10/18 00:44 09/10/18 01:00 Bedside Glucose 186 194 White Blood 1.3 #L Count Red Blood Count 4.60 Hemoglobin 13.9 Hematocrit 42.6 Mean 92.6 Corpuscular Volume Mean 30.2 Corpuscular Hemoglobin Mean 32.6 Corpuscular Hemoglobin Conc ent Red Cell 13.4 Distribution Width Platelet Count 173 Mean Platelet 11.1 H Volume Immature 0.800 H Granulocytes % Neutrophils % Segmented 6 L Neutrophils % (Manual) Band 33 H Neutrophils % (Manual) Lymphocytes % Lymphocytes % 39 (Manual) Reactive 1 H Lymphocytes % (Manual) Monocytes % Monocytes % 9 (Manual) Eosinophils % Basophils % Basophils % 1 (Manual) Metamyelocytes 2 H % (manual) Myelocytes % 9 H (Manual) Nucleated Red 0.0 Blood Cells % Immature 0.010 Granulocytes # Neutrophils # Neutrophils # 0.1 L (Manual) Band 0.4 Neutrophils # Lymphocytes 0.5 L (Manual) Lymphocytes # Reactive 0.0 Lymphocytes # Monocytes # Monocytes # 0.1 L (Manual) Eosinophils # Basophils # Basophils # 0.0 (Manual) Metamyelocytes 0.0 # Myelocytes # 0.1 H Nucleated Red Blood Cells # Platelet NORMAL Estimate Giant Platelets 43 H Poikilocytosis 2+ Prothrombin 13.4 Time Prothrombin 1.0 Time Ratio INR 1.01 International Normalized Rati o Activated 30.1 Partial Thrombo plast Time Fibrinogen 281.0 Sodium Level 143 Potassium Level 3.0 L Chloride Level 108 Carbon Dioxide 22 Level Anion Gap 13 # Blood Urea 18 Nitrogen Creatinine 0.89 Est Glomerular > 60 Filtrat Rate mL/min Glucose Level 243 H Calcium Level 7.2 L Phosphorus 3.2 Level Magnesium Level 1.7 Creatine Kinase 90643 H Creatine Kinase 0.5 Index Creatinine 48.70 H Kinase MB (Mass) Troponin I 2.980 *H Amylase Level 277 H Lipase 46 Blood Gas Blood arterial Specimen Source Arterial Blood 09/10/2018 1:10:2 Date Drawn 1 AM Arterial Blood 7.265 *L pH (Temp corrected ) Arterial Blood 37.9 pCO2 (Temp correct) Arterial Blood 64.9 L pO2 (Temp corrected ) Arterial Blood 18.0 L HCO3 Arterial Blood -10.1 L Base Excess Brian Test ACCEPTAB Arterial Blood Right Radial Gas Puncture Site Blood Gas A-a 621.8 H O2 Differential Blood Gas 31.9 Temperature Blood Gas 20.0 Respiration Rate Blood Gas 20 Actual Respiration Rat e Blood Gas VENT - AC Modality FiO2 100.0 Blood Gas Tidal 500.0 Volume Blood Gas 24.0 Inspiratory Pressure Blood Gas Cherelle Barroso Critical Value Read Back Blood Gas JJordan Notified Whom Blood Gas 09/10/2018 1:42:4 Notified Time 9 AM Test 09/10/18 01:54 09/10/18 03:21 09/10/18 04:30 09/10/18 04:58 Bedside Glucose 195 187 166 White Blood 1.5 L Count Red Blood Count 4.55 Hemoglobin 13.7 Hematocrit 42.1 Mean 92.5 Corpuscular Volume Mean 30.1 Corpuscular Hemoglobin Mean 32.5 Corpuscular Hemoglobin Conc ent Red Cell 13.5 Distribution Width Platelet Count 176 Mean Platelet 11.2 H Volume Immature 0.700 H Granulocytes % Neutrophils % Segmented 2 L Neutrophils % (Manual) Band 37 H Neutrophils % (Manual) Lymphocytes % Lymphocytes % 40 (Manual) Reactive 4 H Lymphocytes % (Manual) Monocytes % Monocytes % 7 (Manual) Eosinophils % Eosinophils % 1 (Manual) Basophils % Basophils % 1 (Manual) Metamyelocytes 2 H % (manual) Myelocytes % 6 H (Manual) Nucleated Red 0.0 Blood Cells % Immature 0.010 Granulocytes # Neutrophils # Neutrophils # 0.0 L (Manual) Band 0.5 Neutrophils # Lymphocytes 0.6 L (Manual) Lymphocytes # Reactive 0.0 Lymphocytes # Monocytes # Monocytes # 0.1 L (Manual) Eosinophils # Basophils # Basophils # 0.0 (Manual) Metamyelocytes 0.0 # Myelocytes # 0.0 Nucleated Red Blood Cells # Platelet NORMAL Estimate Giant Platelets 35 H Poikilocytosis 1+ Anisocytosis 1+ Sodium Level 144 Potassium Level 3.3 L Chloride Level 114 H Carbon Dioxide 20 L Level Anion Gap 10 Blood Urea 19 Nitrogen Creatinine 1.17 H Est Glomerular 57 L Filtrat Rate mL/min Glucose Level 172 Calcium Level 7.3 L Magnesium Level 1.7 Total Bilirubin 0.2 Direct 0.00 Bilirubin Indirect 0.2 Bilirubin Aspartate Amino 591 H Transf (AST/SGO T) Alanine 442 H Aminotransferas e (ALT/SGPT) Alkaline 73 Phosphatase Creatine Kinase 69375 H Creatine Kinase 0.4 Index Creatinine 45.40 H Kinase MB (Mass) Troponin I 2.730 *H Total Protein 5.4 L Albumin 3.0 L Globulin 2.40 Albumin/Globuli 1.25 n Ratio Test 09/10/18 06:05 09/10/18 08:11 09/10/18 08:32 09/10/18 09:05 Bedside Glucose 137 112 147 Blood Gas Blood arterial Specimen Source Arterial Blood 09/10/2018 9:00:3 Date Drawn 5 AM Arterial Blood 7.215 *L pH (Temp corrected ) Arterial Blood 37.4 pCO2 (Temp correct) Arterial Blood 69.2 L pO2 (Temp corrected ) Arterial Blood 15.6 L HCO3 Arterial Blood -12.7 L Base Excess Arterial Blood 95.4 Oxygen Saturati on Brian Test ACCEPTAB Arterial Blood Right Radial Gas Puncture Site Arterial 0.3 Blood Carboxyhe moglobin Arterial Blood 0.3 Methemoglobin Blood Gas A-a 616.2 H O2 Differential Oxyhemoglobin 94.8 Percent Blood Gas 32.8 Temperature Blood Gas 20.0 Respiration Rate Blood Gas 20 Actual Respiration Rat e Blood Gas VENT - AC Modality FiO2 100.0 Blood Gas Tidal 500.0 Volume Blood Gas Low 5.0 PEEP Setting Blood Gas DANIELLE DELGADO Critical Value Read Back Blood Gas TM Notified Whom Blood Gas 09/10/2018 9:16:3 Notified Time 6 AM Test 09/10/18 10:29 09/10/18 11:19 09/10/18 11:52 09/10/18 12:00 Lactic Acid 4.5 *H Level Bedside Glucose 109 White Blood 1.8 L Count Red Blood Count 4.46 Hemoglobin 13.4 Hematocrit 40.6 Mean 91.0 Corpuscular Volume Mean 30.0 Corpuscular Hemoglobin Mean 33.0 Corpuscular Hemoglobin Conc ent Red Cell 13.5 Distribution Width Platelet Count 150 Mean Platelet 11.2 H Volume Immature 0.600 H Granulocytes % Neutrophils % Segmented 10 L Neutrophils % (Manual) Band 37 H Neutrophils % (Manual) Lymphocytes % Lymphocytes % 32 (Manual) Reactive 1 H Lymphocytes % (Manual) Monocytes % Monocytes % 8 (Manual) Eosinophils % Basophils % Metamyelocytes 7 H % (manual) Myelocytes % 4 H (Manual) Nucleated Red 1 H Blood Cells % Immature 0.010 Granulocytes # Neutrophils # Neutrophils # 0.2 L (Manual) Band 0.6 Neutrophils # Lymphocytes 0.5 L (Manual) Lymphocytes # Reactive 0.0 Lymphocytes # Monocytes # Monocytes # 0.1 L (Manual) Eosinophils # Basophils # Metamyelocytes 0.1 H # Myelocytes # 0.0 Nucleated Red Blood Cells # Platelet DECREASED Estimate Giant Platelets 12 H Polychromasia 3+ Poikilocytosis 2+ Anisocytosis 1+ Microcytosis 1+ Prothrombin 13.5 Time Prothrombin 1.1 Time Ratio INR 1.02 International Normalized Rati o Activated 35.1 H Partial Thrombo plast Time Sodium Level 145 H Potassium Level 3.0 L Chloride Level 111 H Carbon Dioxide 21 Level Anion Gap 13 Blood Urea 20 Nitrogen Creatinine 1.17 H Est Glomerular 57 L Filtrat Rate mL/min Glucose Level 141 Calcium Level 7.3 L Phosphorus 2.0 #L Level Magnesium Level 3.2 H Total Bilirubin 0.2 Direct 0.00 Bilirubin Indirect 0.2 Bilirubin Aspartate Amino 408 H Transf (AST/SGO T) Alanine 368 H Aminotransferas e (ALT/SGPT) Alkaline 63 Phosphatase Creatine Kinase 9831 H Creatine Kinase 0.5 Index Creatinine 52.30 H Kinase MB (Mass) Troponin I 1.140 *H Total Protein 5.3 L Albumin 2.8 L Globulin 2.50 Albumin/Globuli 1.12 n Ratio Blood Gas Blood arterial Specimen Source Arterial Blood 09/10/2018 12:23: Date Drawn 44 PM Arterial Blood 7.341 L pH (Temp corrected ) Arterial Blood 35.5 pCO2 (Temp correct) Arterial Blood 136.7 H pO2 (Temp corrected ) Arterial Blood 19.6 L HCO3 Arterial Blood -6.7 L Base Excess Arterial Blood 98.7 H Oxygen Saturati on Brian Test ACCEPTAB Arterial Blood Right Radial Gas Puncture Site Arterial 0.3 Blood Carboxyhe moglobin Arterial Blood 0.2 Methemoglobin Blood Gas A-a 549.8 H O2 Differential Oxyhemoglobin 98.2 Percent Blood Gas 33.2 Temperature Blood Gas 20.0 Respiration Rate Blood Gas 20 Actual Respiration Rat e Blood Gas VENT - AC Modality FiO2 100.0 Blood Gas Tidal 500.0 Volume Blood Gas Low 5.0 PEEP Setting Blood Gas R.COLBY R.N. Critical Value Read Back Blood Gas TM Notified Whom Blood Gas 09/10/2018 12:32: Notified Time 33 PM Test 09/10/18 13:04 09/10/18 15:22 Bedside Glucose 125 135 Medications Current Medications Potassium Chloride/Dextrose/ Sod Cl 1,000 ml @ 75 mls/hr [id number] IV Last administered on 09/09/18 18:28; Admin Dose 75 MLS/HR; Start 09/09/18 at 16:15 Albuterol (Ventolin Hfa) 4 puff Q4H RESP THERAPY INH Last administered on 09/10/18 11:26; Admin Dose 4 PUFF; Start 09/09/18 at 17:00 Albuterol (Ventolin Hfa) 4 puff Q2H RESP THERAPY PRN INH SHORTNESS OF BREATH; Start 09/09/18 at 16:30 Acetaminophen (Tylenol Liquid) 650 mg Q6H PRN NGT PAIN LEVEL 1-3 OR FEVER Last administered on 09/09/18 23:18; Admin Dose 650 MG; Start 09/09/18 at 16:30 Morphine Sulfate (morphine) 2 mg Q4H PRN IV PAIN LEVEL 7-10 Last administered on 09/09/18 20:20; Admin Dose 2 MG; Start 09/09/18 at 16:30 Pantoprazole (Protonix Iv) 40 mg DAILY@06 IV Last administered on 09/10/18 06: 32; Admin Dose 40 MG; Start 09/10/18 at 06:00 Piperacillin Sod/ Tazobactam Sod 100 ml @ 200 mls/hr Q8 IVPB Last administered on 09/10/18 13:59; Admin Dose 200 MLS/HR; Start 09/09/18 at 22:00 Midazolam HCl 50 ml @ 1 mls/hr TITRATE IV Last administered on 09/10/18 06:23; Admin Dose 2 MLS/HR; Start 09/09/18 at 18:30 Fentanyl 100 ml @ 2.5 mls/hr TITRATE IV Last administered on 09/10/18 09:45; Admin Dose 5 MLS/HR; Start 09/09/18 at 21:30 Diagnostic Test (Pha) (Accu-Chek) 1 ea Q1H XX Last administered on 09/10/18at 15:30; Admin Dose 1 EA; Start 09/09/18 at 22:00 Miscellaneous Information (* Miscellaneous Pharmacy Order) Treatment of Hypoglycemia: 1.BG 51... Per protocol XX ; Start 09/09/18 at 22:00 Dextrose (D50w Syringe) 25 ml Q15M PRN IV DECREASED GLUCOSE; Start 09/09/18 at 22:00 Dextrose (D50w Syringe) 50 ml Q15M PRN IV DECREASED GLUCOSE; Start 09/09/18 at 22:00 Insulin Human Regular 100 unit/ Sodium Chloride 100 ml @ 2 mls/hr PER PROTOCOL IV Last administered on 09/10/18at 00:51; Admin Dose 2 MLS/HR; Start 09/10/18 at 00:30 Vecuronium [place] 100 mg/ Dextrose 100 ml @ 3.25 mls/hr TITRATE IV Last administered on 09/10/18at 03:14; Admin Dose 3.25 MLS/HR; Start 09/10/18 at 02:00 Norepinephrine 16 mg/Dextrose 500 ml @ 1.88 mls/hr TITRATE IV Last administered on 09/10/18at 11:19; Admin Dose 28.13 MLS/HR; Start 09/10/18 at 08:00 Potassium Chloride (Potassium Chloride Pwd/Soln) 20 meq PER PROTOCOL PRN PO POTASSIUM REPLACEMENT PROTOCOL; Start 09/10/18 at 09:00 Potassium Chloride (Potassium Chloride Pwd/Soln) 30 meq PER PROTOCOL PRN PO POTASSIUM REPLACEMENT PROTOCOL; Start 09/10/18 at 09:00 Potassium Chloride (Potassium Chloride Pwd/Soln) 40 meq PER PROTOCOL PRN PO POTASSIUM REPLACEMENT PROTOCOL; Start 09/10/18 at 09:00 Eye Lubricant (Akwa Oint) 1 applic Q6 BOTH EYES Last administered on 09/10/18at 11:56; Admin Dose 1 APPLIC; Start 09/10/18 at 12:00 Eye Lubricant (Artificial Tears Oph) 2 drop Q6H PRN BOTH EYES DRY EYES Last administered on 09/10/18at 11:57; Admin Dose 2 DROP; Start 09/10/18 at 09:30 Sodium Bicarbonate 100 meq/Dextrose 1,000 ml @ 75 mls/hr [id number] IV Last administered on 09/10/18at 11:07; Admin Dose 75 MLS/HR; Start 09/10/18 at 10:30 Assessment/Plan Chief Complaint/Hosp Course 1. Cardiopulmonary arrest 2. Hypoxemic hypercapnic respiratory failure status post intubation on the vent 3. Right lung infiltrate consistent with pneumonia possible aspiration pneumonia 4. V. tach arrest: in association with severe hypokalemia 5. Encephalopathy 6. Severe lactic acidosis 7. Hyperglycemia 8. Transaminitis 9. Severe hypokalemia 10. Incomplete data 11. NSTEMI 12. Cardiomyopathy Recommendations: Continue with vent support. correct the potassium to rule more than 4 magnesium more than 2 Antibiotic management will be deferred to internal medicine team Hypothermia protocol to be completed Echocardiogram will be ordered Electrolytes will be repeated. Cardiac enzymes including troponin and CK CK-MB will be repeated in the morning again. More than 37 minutes of critical care time was for management treatment is critically patient excluding any procedures Thank you for his referral. We will continue to follow along with you DEMETRIUS MCCRAY MD [facility] DEMETRIUS MCCRAY MD Sep 10, 2018 16:49
[2018-09-10] MEDS: POTASSIUM CHLORIDE 50 ML IVPB SCH ×3 (17:26→19:00)
[2018-09-10] MEDS: ARTIFICIAL TEARS 15 ML OPH BOTH EYES SCH ×2 (17:28→23:08)
--- NOTE | 2018-09-10 17:44 | NUR ---
EOSS: PT IS ON HYPOTHERMIA PROTOCOL. CURRENTLY IN COOLING PHASE NOW UNTIL ABOUT 1930 THEN REWARMING WILL BEGIN. PT WITH ONGOING VECURONIUM,FENTANYL, VERSED,LEVOPHED AND INSULIN DRIP. TOF OF 1/4 OR AT TIMES 0/4. URINE OUTPUT AT 30 ML/HR DR ALVAREZ AWARE AND WILL CONTINUE TO MONITOR. POTASSIUM 3 AND PER PROTOCOL NOT TO REPLACE 8 HOURS PRIOR TO REWARMING. DR MCCRAY NOTIFY OF K LEVEL BUT HE INSIST ON GIVEN 30 MEQ IV. PT STABLE AT THIS TIME IN SB AROUND 51. ALL ABG RESULT CALLED IN TO DR LANTIGUA WITH ORDERS RECEIVED AND CARRIED OUT. CARE GIVEN PER PROTOCOL
[2018-09-10] MEDS ORDERED: FUROSEMIDE 20 MG INJ IV ONE (19:30)
--- NOTE | 2018-09-10 19:32 | NUR ---
POTASSIUM AT THIS TIME IS 3.6. DR ALVAREZ AWARE AND ORDER GIVEN TO HOLD THE LAST 10 MEQ POTASSIUM.
[2018-09-11] VITALS (97 sets, daily range): BP systolic 75–135; BP diastolic 31–81; PULSE 55–92; RESP 16–27
[2018-09-11] MEDS: ACCU-CHEK XX SCH ×24 (01:17→23:00)
[2018-09-11] MEDS: ALBUTEROL HFA 8 GM INHALER INH SCH ×6 (01:33→20:09)
[2018-09-11] MEDS ORDERED: MAGNESIUM SULFATE 1 GM/D5W 100 ML ONE (02:54)
[2018-09-11] MEDS ORDERED: SOD CHLORIDE 0.9% 1,000 ML IV ONE (03:00)
[2018-09-11] MEDS ORDERED: MAGNESIUM SULFATE 1 GM/D5W 100 ML IVPB ONE (03:00)
[2018-09-11] MEDS ORDERED: POTASSIUM CHLORIDE 100 ML IVPB ONE ×2 (04:38→05:00)
[2018-09-11] MEDS: PANTOPRAZOLE 40 MG INJ IV SCH (05:25)
[2018-09-11] MEDS: ARTIFICIAL TEARS 15 ML OPH BOTH EYES SCH ×3 (05:26→17:23)
[2018-09-11] MEDS: OCULAR LUBRICANT 3.5 GM OPH OINT BOTH EYES SCH ×3 (05:26→17:23)
--- NOTE | 2018-09-11 06:20 | NUR ---
EOSS: NO ACUTE CHANGES OVER NIGHT. PATIENT CONTINUES TO BE ON TTM PROTOCOL. CURRENTLY CONTINUES TO BE ON LEVOPHED, VERSED, INSULIN, FENTANYL, VECURONIUM, AND D5 2 AMPS OF BICARB. URINE OUTPUT CONTINUES TO BE LOW, DR PEREZ NOTIFIED ORDERS GIVEN. TTM TO BE COMPLETED 1145. SOCIAL WORK CONSULT IN PLACE.PATIENT'S WILL COPIED AND PLACED IN CHART. FAMILY UPDATED ON CURRENT PATIENTS CONDITION. ALL QUESTIONS ANSWERED AND ALL NEEDS MET AT THIS TIME. WILL CONTINUE TO MONITOR CLOSELY AND ENDORSE TO ONCOMING NURSE.
[2018-09-11] MEDS: PIPER-TAZO 3.375 GM IV (PMX) 100 ML IVPB SCH ×3 (06:36→21:53)
--- NOTE | 2018-09-11 07:56 | CONS ---
Date/Time of Note Date/Time of Note DATE: 09/11/18 TIME: 07:52 Consult Date/Type/Reason Admit Date/Time Sep 09, 2018 at 16:10 Initial Consult Date 09/10/18 Type of Consultation: cv Requesting Provider: OZZIE ALVAREZ MD Subjective Interventional cardiology follow-up progress note/critical care note Subjective: Case discussed with the staff and rhythm was reviewed. Patient remains in sinus rhythm sinus bradycardia/NSR no VT. Patient remains in hypothermia protocol nonresponsive pt has been hypotensive and on levophed now. pt remains nonverbal Discussed with patient's daughter and son-in-law in detail. The old records that they were able to provide was reviewed. Patient appears that has had hypertension and dyslipidemia and has been on lisinopril and Procardia and simvastatin at home. According to the family patient has been very active generally but has had dyspnea on exertion and has been complaint of lower extremity edema lately. Patient has worked as a UBER driver/refuse collector O: General: Status post intubation on the vent HEENT: NC/AT. pupils are equal. round. NECK: no stridor. CV: RRR. systolic murmur; no gallop or rubs. PULM: no wheezing + rhonchi. GI: SOFT, NT, ND, no rebound or guarding Extremity: trace B/L LE edema. no clubbing. neuro: Sedated and unable to respond to verbal stimulus. Psych: calm rectal: deferred CXR 1. Cardiomegaly and mild failure. 2. Superimposed dense right central and mid lung pneumonia, similar in appearance to the prior examination. 3. Recommend advancing nasogastric tube about [address] tip and side port well within the gastric lumen, with re-imaging. echo reviewed Normal left ventricular cavity size. Moderate concentric left ventricular hypertrophy. Severe global left ventricular systolic dysfunction. Ejection fraction is visually estimated at 20 %. Mitral valve leaflets appear mildly thickened. Mild mitral annular calcification. Trace mitral regurgitation. No significant aortic stenosis or insufficiency. Aortic cusps appear mildly calcified. Normal appearance of the tricuspid valve. Estimated peak PA systolic pressure 27 mmHg. There is mild tricuspid regurgitation. Dilated IVC without respiratory collapse, however, patient on ventilator. Objective Vital Signs Date Temp Pulse Resp B/P (MAP) Pulse Ox O2 O2 Flow FiO2 Time Delivery Rate 09/11/18 94.1 72 20 117/58 100 06:00 (77) 09/11/18 Mechanical 06:00 Ventilator 09/11/18 50 05:26 09/09/18 15.0 14:50 Intake and Output 09/10/18 09/10/18 09/11/18 1515:00 23:00 07:00 IntakeIntake Total 1093.75 ml 1021.96 ml 2005.85 ml OutputOutput Total 240 ml 249 ml 159 ml BalanceBalance 853.75 ml 772.96 ml 1846.85 ml Results/Medications Result Diagram: 09/11/18 0600 09/11/18 0600 Results 24 hrs Laboratory Tests Test 09/10/18 08:11 09/10/18 08:32 09/10/18 09:05 09/10/18 10:29 Bedside Glucose 112 147 Blood Gas Blood Specimen arterial Source Arterial Blood 09/10/2018 9:00: Date Drawn 35 AM Arterial Blood 7.215 *L pH (Temp corrected ) Arterial Blood 37.4 pCO2 (Temp correct) Arterial Blood 69.2 L pO2 (Temp corrected ) Arterial Blood 15.6 L HCO3 Arterial Blood -12.7 L Base Excess Arterial Blood 95.4 Oxygen Saturati on Brian Test ACCEPTAB Arterial Blood Right Radial Gas Puncture Site Arterial 0.3 Blood Carboxyhe moglobin Arterial Blood 0.3 Methemoglobin Blood Gas A-a 616.2 H O2 Differential Oxyhemoglobin 94.8 Percent Blood Gas 32.8 Temperature Blood Gas 20.0 Respiration Rate Blood Gas 20 Actual Respiration Rat e Blood Gas VENT - AC Modality FiO2 100.0 Blood Gas Tidal 500.0 Volume Blood Gas Low 5.0 PEEP Setting Blood Gas DANIELLE DELGADO Critical Value Read Back Blood Gas TM Notified Whom Blood Gas 09/10/2018 9:16: Notified Time 36 AM Lactic Acid 4.5 *H Level Test 09/10/18 11:19 09/10/18 11:52 09/10/18 12:00 09/10/18 13:04 Bedside Glucose 109 125 White Blood 1.8 L Count Red Blood Count 4.46 Hemoglobin 13.4 Hematocrit 40.6 Mean 91.0 Corpuscular Volume Mean 30.0 Corpuscular Hemoglobin Mean 33.0 Corpuscular Hemoglobin Conc ent Red Cell 13.5 Distribution Width Platelet Count 150 Mean Platelet 11.2 H Volume Immature 0.600 H Granulocytes % Neutrophils % Segmented 10 L Neutrophils % (Manual) Band 37 H Neutrophils % (Manual) Lymphocytes % Lymphocytes % 32 (Manual) Reactive 1 H Lymphocytes % (Manual) Monocytes % Monocytes % 8 (Manual) Eosinophils % Basophils % Metamyelocytes 7 H % (manual) Myelocytes % 4 H (Manual) Nucleated Red 1 H Blood Cells % Immature 0.010 Granulocytes # Neutrophils # Neutrophils # 0.2 L (Manual) Band 0.6 Neutrophils # Lymphocytes 0.5 L (Manual) Lymphocytes # Reactive 0.0 Lymphocytes # Monocytes # Monocytes # 0.1 L (Manual) Eosinophils # Basophils # Metamyelocytes 0.1 H # Myelocytes # 0.0 Nucleated Red Blood Cells # Platelet DECREASED Estimate Giant Platelets 12 H Polychromasia 3+ Poikilocytosis 2+ Anisocytosis 1+ Microcytosis 1+ Prothrombin 13.5 Time Prothrombin 1.1 Time Ratio INR 1.02 International Normalized Rati o Activated 35.1 H Partial Thrombo plast Time Sodium Level 145 H Potassium Level 3.0 L Chloride Level 111 H Carbon Dioxide 21 Level Anion Gap 13 Blood Urea 20 Nitrogen Creatinine 1.17 H Est Glomerular 57 L Filtrat Rate mL/min Glucose Level 141 Calcium Level 7.3 L Phosphorus 2.0 #L Level Magnesium Level 3.2 H Total Bilirubin 0.2 Direct 0.00 Bilirubin Indirect 0.2 Bilirubin Aspartate Amino 408 H Transf (AST/SGO T) Alanine 368 H Aminotransferas e (ALT/SGPT) Alkaline 63 Phosphatase Creatine Kinase 9831 H Creatine Kinase 0.5 Index Creatinine 52.30 H Kinase MB (Mass) Troponin I 1.140 *H Total Protein 5.3 L Albumin 2.8 L Globulin 2.50 Albumin/Globuli 1.12 n Ratio Blood Gas Blood Specimen arterial Source Arterial Blood 09/10/2018 12:23 Date Drawn :44 PM Arterial Blood 7.341 L pH (Temp corrected ) Arterial Blood 35.5 pCO2 (Temp correct) Arterial Blood 136.7 H pO2 (Temp corrected ) Arterial Blood 19.6 L HCO3 Arterial Blood -6.7 L Base Excess Arterial Blood 98.7 H Oxygen Saturati on Brian Test ACCEPTAB Arterial Blood Right Radial Gas Puncture Site Arterial 0.3 Blood Carboxyhe moglobin Arterial Blood 0.2 Methemoglobin Blood Gas A-a 549.8 H O2 Differential Oxyhemoglobin 98.2 Percent Blood Gas 33.2 Temperature Blood Gas 20.0 Respiration Rate Blood Gas 20 Actual Respiration Rat e Blood Gas VENT - AC Modality FiO2 100.0 Blood Gas Tidal 500.0 Volume Blood Gas Low 5.0 PEEP Setting Blood Gas [id number] R.N Critical Value . Read Back Blood Gas TM Notified Whom Blood Gas 09/10/2018 12:32 Notified Time :33 PM Test 09/10/18 15:22 09/10/18 17:23 09/10/18 17:59 09/10/18 18:00 Bedside Glucose 135 130 Sodium Level 141 Potassium Level 3.6 Chloride Level 110 Carbon Dioxide 24 Level Anion Gap 7 Blood Urea 22 H Nitrogen Creatinine 1.20 H Est Glomerular 55 L Filtrat Rate mL/min Glucose Level 173 Lactic Acid 3.7 *H Level Calcium Level 7.4 L Phosphorus 2.4 L Level Magnesium Level 2.3 Total Bilirubin 0.2 Direct 0.00 Bilirubin Indirect 0.2 Bilirubin Aspartate Amino 353 H Transf (AST/SGO T) Alanine 342 H Aminotransferas e (ALT/SGPT) Alkaline 58 Phosphatase Total Protein 5.1 L Albumin 2.7 L Globulin 2.40 Albumin/Globuli 1.12 n Ratio White Blood 2.1 L Count Red Blood Count 4.40 Hemoglobin 13.1 Hematocrit 39.3 Mean 89.3 Corpuscular Volume Mean 29.8 Corpuscular Hemoglobin Mean 33.3 Corpuscular Hemoglobin Conc ent Red Cell 13.4 Distribution Width Platelet Count 122 L Mean Platelet 11.1 H Volume Immature 0.000 L Granulocytes % Neutrophils % Segmented 12 L Neutrophils % (Manual) Band 42 H Neutrophils % (Manual) Lymphocytes % Lymphocytes % 19 (Manual) Reactive 3 H Lymphocytes % (Manual) Monocytes % Monocytes % 10 (Manual) Eosinophils % Basophils % Metamyelocytes 12 H % (manual) Myelocytes % 2 H (Manual) Nucleated Red 0.0 Blood Cells % Immature 0.000 Granulocytes # Neutrophils # Neutrophils # 0.3 L (Manual) Band 0.8 H Neutrophils # Lymphocytes 0.3 L (Manual) Lymphocytes # Reactive 0.0 Lymphocytes # Monocytes # Monocytes # 0.2 L (Manual) Eosinophils # Basophils # Metamyelocytes 0.2 H # Myelocytes # 0.0 Nucleated Red Blood Cells # Platelet NORMAL Estimate Giant Platelets 19 H Polychromasia 1+ Poikilocytosis 3+ Anisocytosis 1+ Macrocytosis 1+ Prothrombin 13.9 Time Prothrombin 1.1 Time Ratio INR 1.06 International Normalized Rati o Activated 38.3 H Partial Thrombo plast Time Blood Gas Blood Specimen arterial Source Arterial Blood 09/10/2018 6:25: Date Drawn 24 PM Arterial Blood 7.375 pH (Temp corrected ) Arterial Blood 38.1 pCO2 (Temp correct) Arterial Blood 168.2 H pO2 (Temp corrected ) Arterial Blood 22.6 HCO3 Arterial Blood -3.4 L Base Excess Arterial Blood 99.1 H Oxygen Saturati on Brian Test ACCEPTAB Arterial Blood Left Radial Gas Puncture Site Arterial 0.1 Blood Carboxyhe moglobin Arterial Blood 0.3 Methemoglobin Blood Gas A-a 368.6 H O2 Differential Oxyhemoglobin 98.7 Percent Blood Gas 33.7 Temperature Blood Gas 20.0 Respiration Rate Blood Gas 20 Actual Respiration Rat e Blood Gas TRACH COLLAR Modality FiO2 80.0 Blood Gas Tidal 500.0 Volume Blood Gas Low 5.0 PEEP Setting [facility] Value RN Read Back Blood Gas RDIX Notified Whom Blood Gas 09/10/2018 6:37: Notified Time 03 PM Test 09/10/18 18:53 09/10/18 21:05 09/10/18 23:05 09/10/18 23:57 Bedside Glucose 144 164 162 White Blood 2.2 L Count Red Blood Count 3.70 L Hemoglobin 11.3 L Hematocrit 33.0 L Mean 89.2 Corpuscular Volume Mean 30.5 Corpuscular Hemoglobin Mean 34.2 Corpuscular Hemoglobin Conc ent Red Cell 13.4 Distribution Width Platelet Count 106 L Mean Platelet 11.8 H Volume Immature 1.400 H Granulocytes % Neutrophils % Segmented 24 L Neutrophils % (Manual) Band 46 H Neutrophils % (Manual) Lymphocytes % Lymphocytes % 21 (Manual) Monocytes % Monocytes % 2 (Manual) Eosinophils % Basophils % Metamyelocytes 7 H % (manual) Nucleated Red 0.0 Blood Cells % Immature 0.030 Granulocytes # Neutrophils # Neutrophils # 0.6 L (Manual) Band 1.0 H Neutrophils # Lymphocytes 0.4 L (Manual) Lymphocytes # Monocytes # Monocytes # 0.0 L (Manual) Eosinophils # Basophils # Metamyelocytes 0.1 H # Nucleated Red Blood Cells # Platelet DECREASED Estimate Giant Platelets 4 H Polychromasia 3+ Poikilocytosis 3+ Anisocytosis 1+ Microcytosis 1+ Prothrombin 15.1 H Time Prothrombin 1.2 Time Ratio INR 1.18 International Normalized Rati o Activated 40.9 H Partial Thrombo plast Time Sodium Level 143 Potassium Level 3.0 L Chloride Level 110 Carbon Dioxide 25 Level Anion Gap 8 Blood Urea 21 H Nitrogen Creatinine 1.19 H Est Glomerular 55 L Filtrat Rate mL/min Glucose Level 140 Lactic Acid 3.5 *H Level Calcium Level 6.7 L Phosphorus 1.7 L Level Magnesium Level 1.9 Total Bilirubin 0.2 Direct 0.00 Bilirubin Indirect 0.2 Bilirubin Aspartate Amino 232 H Transf (AST/SGO T) Alanine 260 H Aminotransferas e (ALT/SGPT) Alkaline 42 Phosphatase Total Protein 4.3 L Albumin 2.2 L Globulin 2.10 Albumin/Globuli 1.04 n Ratio Test 09/11/18 00:00 09/11/18 00:53 09/11/18 02:59 09/11/18 05:07 Blood Gas Blood arterial Specimen Source Arterial Blood 09/11/2018 12:15: Date Drawn 50 AM Arterial Blood 7.441 pH (Temp corrected ) Arterial Blood 29.8 L pCO2 (Temp correct) Arterial Blood 100.9 H pO2 (Temp corrected ) Arterial Blood 19.8 L HCO3 Arterial Blood -3.2 L Base Excess Arterial Blood 97.6 Oxygen Saturati on Brian Test ACCEPTAB Arterial Blood Right Radial Gas Puncture Site Arterial 0.3 Blood Carboxyhe moglobin Arterial Blood 0.1 Methemoglobin Blood Gas A-a 222.1 H O2 Differential Oxyhemoglobin 97.2 Percent Blood Gas 37.0 Temperature Blood Gas 20.0 Respiration Rate Blood Gas 20 Actual Respiration Rat e Blood Gas VENT - AC Modality FiO2 50.0 Blood Gas Tidal 500.0 Volume Blood Gas Low 5.0 PEEP Setting Blood Gas 20.0 Inspiratory Pressure Blood Gas MG Notified Whom Blood Gas 09/11/2018 12:22: Notified Time 26 AM Bedside Glucose 123 146 165 Test 09/11/18 06:00 09/11/18 06:56 White Blood 3.1 #L Count Red Blood Count 3.95 L Hemoglobin 11.9 L Hematocrit 34.8 L Mean 88.1 Corpuscular Volume Mean 30.1 Corpuscular Hemoglobin Mean 34.2 Corpuscular Hemoglobin Conc ent Red Cell 13.4 Distribution Width Platelet Count 109 L Mean Platelet 11.3 H Volume Immature 1.300 H Granulocytes % Neutrophils % Lymphocytes % Monocytes % Eosinophils % Basophils % Nucleated Red 0.0 Blood Cells % Immature 0.040 H Granulocytes # Neutrophils # Lymphocytes # Monocytes # Eosinophils # Basophils # Nucleated Red Blood Cells # Prothrombin 20.0 #H Time Prothrombin 1.6 Time Ratio INR 1.69 International Normalized Rati o Activated 44.9 H Partial Thrombo plast Time Blood Gas Blood arterial Specimen Source Arterial Blood 09/11/2018 5:42:3 Date Drawn 7 AM Arterial Blood 7.475 H pH (Temp corrected ) Arterial Blood 30.6 L pCO2 (Temp correct) Arterial Blood 73.8 L pO2 (Temp corrected ) Arterial Blood 22.3 HCO3 Arterial Blood -0.9 Base Excess Arterial Blood 96.1 Oxygen Saturati on Brian Test ACCEPTAB Arterial Blood Right Radial Gas Puncture Site Arterial 0.3 Blood Carboxyhe moglobin Arterial Blood 0.2 Methemoglobin Blood Gas A-a 250.3 H O2 Differential Oxyhemoglobin 95.6 Percent Blood Gas 35.4 Temperature Blood Gas 20.0 Respiration Rate Blood Gas 20 Actual Respiration Rat e Blood Gas VENT - AC Modality FiO2 50.0 Blood Gas Tidal 500.0 Volume Blood Gas Low 5.0 PEEP Setting Blood Gas 22.0 Inspiratory Pressure Blood Gas MG Notified Whom Blood Gas 09/11/2018 5:52:1 Notified Time 9 AM Sodium Level 139 Potassium Level 3.6 Chloride Level 107 Carbon Dioxide 26 Level Anion Gap 6 Blood Urea 24 H Nitrogen Creatinine 1.32 H Est Glomerular 49 L Filtrat Rate mL/min Glucose Level 163 Lactic Acid 3.2 *H Level Calcium Level 7.1 L Phosphorus 2.5 Level Magnesium Level 2.3 Total Bilirubin 0.3 Direct 0.00 Bilirubin Indirect 0.3 Bilirubin Aspartate Amino 251 H Transf (AST/SGO T) Alanine 271 H Aminotransferas e (ALT/SGPT) Alkaline 49 Phosphatase Total Protein 4.7 L Albumin 2.5 L Globulin 2.20 Albumin/Globuli 1.13 n Ratio Bedside Glucose 126 Medications Current Medications Potassium Chloride/Dextrose/ Sod Cl 1,000 ml @ 75 mls/hr [id number] IV Last administered on 09/09/18at 18:28; Admin Dose 75 MLS/HR; Start 09/09/18 at 16:15; Status Hold Albuterol (Ventolin Hfa) 4 puff Q4H RESP THERAPY INH Last administered on 09/11/18at 05:28; Admin Dose 4 PUFF; Start 09/09/18 at 17:00 Albuterol (Ventolin Hfa) 4 puff Q2H RESP THERAPY PRN INH SHORTNESS OF BREATH; Start 09/09/18 at 16:30 Acetaminophen (Tylenol Liquid) 650 mg Q6H PRN NGT PAIN LEVEL 1-3 OR FEVER Last administered on 09/09/18 23:18; Admin Dose 650 MG; Start 09/09/18 at 16:30 Morphine Sulfate (morphine) 2 mg Q4H PRN IV PAIN LEVEL 7-10 Last administered on 09/09/18 20:20; Admin Dose 2 MG; Start 09/09/18 at 16:30 Pantoprazole (Protonix Iv) 40 mg DAILY@06 IV Last administered on 09/11/18 05:25; Admin Dose 40 MG; Start 09/10/18 at 06:00 Piperacillin Sod/ Tazobactam Sod 100 ml @ 200 mls/hr Q8 IVPB Last administered on 09/11/18 06:36; Admin Dose 200 MLS/HR; Start 09/09/18 at 22:00 Midazolam HCl 50 ml @ 1 mls/hr TITRATE IV Last administered on 09/10/18 06:23; Admin Dose 2 MLS/HR; Start 09/09/18 at 18:30 Fentanyl 100 ml @ 2.5 mls/hr TITRATE IV Last administered on 09/10/18 09:45; Admin Dose 5 MLS/HR; Start 09/09/18 at 21:30 Diagnostic Test (Pha) (Accu-Chek) 1 ea Q1H XX Last administered on 09/11/18at 06:58; Admin Dose 1 EA; Start 09/09/18 at 22:00 Miscellaneous Information (* Miscellaneous Pharmacy Order) Treatment of Hypoglycemia: 1.BG 51... Per protocol XX ; Start 09/09/18 at 22:00 Dextrose (D50w Syringe) 25 ml Q15M PRN IV DECREASED GLUCOSE; Start 09/09/18 at 22:00 Dextrose (D50w Syringe) 50 ml Q15M PRN IV DECREASED GLUCOSE; Start 09/09/18 at 22:00 Insulin Human Regular 100 unit/ Sodium Chloride 100 ml @ 2 mls/hr PER PROTOCOL IV Last administered on 09/10/18at 00:51; Admin Dose 2 MLS/HR; Start 09/10/18 at 00:30 Vecuronium [place] 100 mg/ Dextrose 100 ml @ 3.25 mls/hr TITRATE IV Last administered on 09/10/18at 03:14; Admin Dose 3.25 MLS/HR; Start 09/10/18 at 02:00 Norepinephrine 16 mg/Dextrose 500 ml @ 1.88 mls/hr TITRATE IV Last administered on 09/10/18at 11:19; Admin Dose 28.13 MLS/HR; Start 09/10/18 at 08:00 Potassium Chloride (Potassium Chloride Pwd/Soln) 20 meq PER PROTOCOL PRN PO POTASSIUM REPLACEMENT PROTOCOL; Start 09/10/18 at 09:00 Potassium Chloride (Potassium Chloride Pwd/Soln) 30 meq PER PROTOCOL PRN PO POTASSIUM REPLACEMENT PROTOCOL; Start 09/10/18 at 09:00 Potassium Chloride (Potassium Chloride Pwd/Soln) 40 meq PER PROTOCOL PRN PO POTASSIUM REPLACEMENT PROTOCOL; Start 09/10/18 at 09:00 Eye Lubricant (Akwa Oint) 1 applic Q6 BOTH EYES Last administered on 09/11/18at 05:26; Admin Dose 1 APPLIC; Start 09/10/18 at 12:00 Sodium Bicarbonate 100 meq/Dextrose 1,000 ml @ 75 mls/hr [id number] IV Last administered on 09/10/18at 23:08; Admin Dose 75 MLS/HR; Start 09/10/18 at 10:30 Eye Lubricant (Artificial Tears Oph) 2 drop Q6H BOTH EYES Last administered on 09/11/18at 05:26; Admin Dose 2 DROP; Start 09/10/18 at 18:00 Assessment/Plan Chief Complaint/Hosp Course 1. Cardiopulmonary arrest 2. Hypoxemic hypercapnic respiratory failure status post intubation on the vent 3. Right lung infiltrate consistent with pneumonia possible aspiration pneumonia 4. V. tach arrest: in association with severe hypokalemia 5. Encephalopathy 6. Severe lactic acidosis 7. Hyperglycemia 8. Transaminitis 9. Severe hypokalemia 10. Incomplete data 11. NSTEMI 12. Cardiomyopathy Recommendations: Continue with vent support. correct the potassium and Mg to keep K more than 4, magnesium more than 2 Antibiotic management will be deferred to internal medicine team Hypothermia protocol to be completed Echocardiogram was reviewed. Electrolytes will be repeated. will try to contact pt PCP and get more records cont ICU care. full code for now More than 36 minutes of critical care time was for management treatment is critically patient excluding any procedures Thank you for his referral. We will continue to follow along with you DEMETRIUS MCCRAY MD [facility] DEMETRIUS MCCRAY MD Sep 11, 2018 07:56
--- NOTE | 2018-09-11 08:28 | CONS ---
Date/Time of Note Date/Time of Note DATE: 09/11/18 TIME: 08:18 Assessment/Plan Assessment/Plan Assessment/Plan Hx of Present Illness 63-year-old female found down in the street unconscious. Paramedics called ACLS was begun, V. fib cardiac arrest. Patient transported [facility] and shock started off on hypothermia protocol. Patient is currently being rewarmed, 5 hours left. There is no information as to how long patient was down. At this time there is an incomplete database. Assessment/Plan 1. Vfib Cardiac arrest with ROSC 2. Fluid and electrolyte abnormalities 3.. Acute hypoxic respiratory failure on mechanical ventilation will follow patient while in the intensive care unit assess neurologically when she has been rewarmed. Family members have been contacted on their way into town, have spoken with Dr. Rm who has conveyed the information to family members will need to be rewarmed to assess her neurological condition. Will stay available. Thank you Result Diagram: 09/11/18 0600 09/11/18 0600 Results 24hrs Laboratory Tests Test 09/10/18 08:32 09/10/18 09:05 09/10/18 10:29 09/10/18 11:19 Blood Gas Blood arterial Specimen Source Arterial Blood 09/10/2018 9:00:3 Date Drawn 5 AM Arterial Blood 7.215 *L pH (Temp corrected ) Arterial Blood 37.4 pCO2 (Temp correct) Arterial Blood 69.2 L pO2 (Temp corrected ) Arterial Blood 15.6 L HCO3 Arterial Blood -12.7 L Base Excess Arterial Blood 95.4 Oxygen Saturati on Brian Test ACCEPTAB Arterial Blood Right Radial Gas Puncture Site Arterial 0.3 Blood Carboxyhe moglobin Arterial Blood 0.3 Methemoglobin Blood Gas A-a 616.2 H O2 Differential Oxyhemoglobin 94.8 Percent Blood Gas 32.8 Temperature Blood Gas 20.0 Respiration Rate Blood Gas 20 Actual Respiration Rat e Blood Gas VENT - AC Modality FiO2 100.0 Blood Gas Tidal 500.0 Volume Blood Gas Low 5.0 PEEP Setting Blood Gas DANIELLE DELGADO Critical Value Read Back Blood Gas TM Notified Whom Blood Gas 09/10/2018 9:16:3 Notified Time 6 AM Bedside Glucose 147 109 Lactic Acid 4.5 *H Level Test 09/10/18 11:52 09/10/18 12:00 09/10/18 13:04 09/10/18 15:22 White Blood 1.8 L Count Red Blood Count 4.46 Hemoglobin 13.4 Hematocrit 40.6 Mean 91.0 Corpuscular Volume Mean 30.0 Corpuscular Hemoglobin Mean 33.0 Corpuscular Hemoglobin Conc ent Red Cell 13.5 Distribution Width Platelet Count 150 Mean Platelet 11.2 H Volume Immature 0.600 H Granulocytes % Neutrophils % Segmented 10 L Neutrophils % (Manual) Band 37 H Neutrophils % (Manual) Lymphocytes % Lymphocytes % 32 (Manual) Reactive 1 H Lymphocytes % (Manual) Monocytes % Monocytes % 8 (Manual) Eosinophils % Basophils % Metamyelocytes 7 H % (manual) Myelocytes % 4 H (Manual) Nucleated Red 1 H Blood Cells % Immature 0.010 Granulocytes # Neutrophils # Neutrophils # 0.2 L (Manual) Band 0.6 Neutrophils # Lymphocytes 0.5 L (Manual) Lymphocytes # Reactive 0.0 Lymphocytes # Monocytes # Monocytes # 0.1 L (Manual) Eosinophils # Basophils # Metamyelocytes 0.1 H # Myelocytes # 0.0 Nucleated Red Blood Cells # Platelet DECREASED Estimate Giant Platelets 12 H Polychromasia 3+ Poikilocytosis 2+ Anisocytosis 1+ Microcytosis 1+ Prothrombin 13.5 Time Prothrombin 1.1 Time Ratio INR 1.02 International Normalized Rati o Activated 35.1 H Partial Thrombo plast Time Sodium Level 145 H Potassium Level 3.0 L Chloride Level 111 H Carbon Dioxide 21 Level Anion Gap 13 Blood Urea 20 Nitrogen Creatinine 1.17 H Est Glomerular 57 L Filtrat Rate mL/min Glucose Level 141 Calcium Level 7.3 L Phosphorus 2.0 #L Level Magnesium Level 3.2 H Total Bilirubin 0.2 Direct 0.00 Bilirubin Indirect 0.2 Bilirubin Aspartate Amino 408 H Transf (AST/SGO T) Alanine 368 H Aminotransferas e (ALT/SGPT) Alkaline 63 Phosphatase Creatine Kinase 9831 H Creatine Kinase 0.5 Index Creatinine 52.30 H Kinase MB (Mass) Troponin I 1.140 *H Total Protein 5.3 L Albumin 2.8 L Globulin 2.50 Albumin/Globuli 1.12 n Ratio Blood Gas Blood Specimen arterial Source Arterial Blood 09/10/2018 12:23 Date Drawn :44 PM Arterial Blood 7.341 L pH (Temp corrected ) Arterial Blood 35.5 pCO2 (Temp correct) Arterial Blood 136.7 H pO2 (Temp corrected ) Arterial Blood 19.6 L HCO3 Arterial Blood -6.7 L Base Excess Arterial Blood 98.7 H Oxygen Saturati on Brian Test ACCEPTAB Arterial Blood Right Radial Gas Puncture Site Arterial 0.3 Blood Carboxyhe moglobin Arterial Blood 0.2 Methemoglobin Blood Gas A-a 549.8 H O2 Differential Oxyhemoglobin 98.2 Percent Blood Gas 33.2 Temperature Blood Gas 20.0 Respiration Rate Blood Gas 20 Actual Respiration Rat e Blood Gas VENT - AC Modality FiO2 100.0 Blood Gas Tidal 500.0 Volume Blood Gas Low 5.0 PEEP Setting Blood Gas [id number] R.N Critical Value . Read Back Blood Gas TM Notified Whom Blood Gas 09/10/2018 12:32 Notified Time :33 PM Bedside Glucose 125 135 Test 09/10/18 17:23 09/10/18 17:59 09/10/18 18:00 09/10/18 18:53 Bedside Glucose 130 144 Sodium Level 141 Potassium Level 3.6 Chloride Level 110 Carbon Dioxide 24 Level Anion Gap 7 Blood Urea 22 H Nitrogen Creatinine 1.20 H Est Glomerular 55 L Filtrat Rate mL/min Glucose Level 173 Lactic Acid 3.7 *H Level Calcium Level 7.4 L Phosphorus 2.4 L Level Magnesium Level 2.3 Total Bilirubin 0.2 Direct 0.00 Bilirubin Indirect 0.2 Bilirubin Aspartate Amino 353 H Transf (AST/SGO T) Alanine 342 H Aminotransferas e (ALT/SGPT) Alkaline 58 Phosphatase Total Protein 5.1 L Albumin 2.7 L Globulin 2.40 Albumin/Globuli 1.12 n Ratio White Blood 2.1 L Count Red Blood Count 4.40 Hemoglobin 13.1 Hematocrit 39.3 Mean 89.3 Corpuscular Volume Mean 29.8 Corpuscular Hemoglobin Mean 33.3 Corpuscular Hemoglobin Conc ent Red Cell 13.4 Distribution Width Platelet Count 122 L Mean Platelet 11.1 H Volume Immature 0.000 L Granulocytes % Neutrophils % Segmented 12 L Neutrophils % (Manual) Band 42 H Neutrophils % (Manual) Lymphocytes % Lymphocytes % 19 (Manual) Reactive 3 H Lymphocytes % (Manual) Monocytes % Monocytes % 10 (Manual) Eosinophils % Basophils % Metamyelocytes 12 H % (manual) Myelocytes % 2 H (Manual) Nucleated Red 0.0 Blood Cells % Immature 0.000 Granulocytes # Neutrophils # Neutrophils # 0.3 L (Manual) Band 0.8 H Neutrophils # Lymphocytes 0.3 L (Manual) Lymphocytes # Reactive 0.0 Lymphocytes # Monocytes # Monocytes # 0.2 L (Manual) Eosinophils # Basophils # Metamyelocytes 0.2 H # Myelocytes # 0.0 Nucleated Red Blood Cells # Platelet NORMAL Estimate Giant Platelets 19 H Polychromasia 1+ Poikilocytosis 3+ Anisocytosis 1+ Macrocytosis 1+ Prothrombin 13.9 Time Prothrombin 1.1 Time Ratio INR 1.06 International Normalized Rati o Activated 38.3 H Partial Thrombo plast Time Blood Gas Blood Specimen arterial Source Arterial Blood 09/10/2018 6:25: Date Drawn 24 PM Arterial Blood 7.375 pH (Temp corrected ) Arterial Blood 38.1 pCO2 (Temp correct) Arterial Blood 168.2 H pO2 (Temp corrected ) Arterial Blood 22.6 HCO3 Arterial Blood -3.4 L Base Excess Arterial Blood 99.1 H Oxygen Saturati on Brian Test ACCEPTAB Arterial Blood Left Radial Gas Puncture Site Arterial 0.1 Blood Carboxyhe moglobin Arterial Blood 0.3 Methemoglobin Blood Gas A-a 368.6 H O2 Differential Oxyhemoglobin 98.7 Percent Blood Gas 33.7 Temperature Blood Gas 20.0 Respiration Rate Blood Gas 20 Actual Respiration Rat e Blood Gas TRACH COLLAR Modality FiO2 80.0 Blood Gas Tidal 500.0 Volume Blood Gas Low 5.0 PEEP Setting Blood Gas Stacey. WILLIAM Critical Value RN Read Back Blood Gas RDIX Notified Whom Blood Gas 09/10/2018 6:37: Notified Time 03 PM Test 09/10/18 21:05 09/10/18 23:05 09/10/18 23:57 09/11/18 00:00 Bedside Glucose 164 162 White Blood 2.2 L Count Red Blood Count 3.70 L Hemoglobin 11.3 L Hematocrit 33.0 L Mean 89.2 Corpuscular Volume Mean 30.5 Corpuscular Hemoglobin Mean 34.2 Corpuscular Hemoglobin Conc ent Red Cell 13.4 Distribution Width Platelet Count 106 L Mean Platelet 11.8 H Volume Immature 1.400 H Granulocytes % Neutrophils % Segmented 24 L Neutrophils % (Manual) Band 46 H Neutrophils % (Manual) Lymphocytes % Lymphocytes % 21 (Manual) Monocytes % Monocytes % 2 (Manual) Eosinophils % Basophils % Metamyelocytes 7 H % (manual) Nucleated Red 0.0 Blood Cells % Immature 0.030 Granulocytes # Neutrophils # Neutrophils # 0.6 L (Manual) Band 1.0 H Neutrophils # Lymphocytes 0.4 L (Manual) Lymphocytes # Monocytes # Monocytes # 0.0 L (Manual) Eosinophils # Basophils # Metamyelocytes 0.1 H # Nucleated Red Blood Cells # Platelet DECREASED Estimate Giant Platelets 4 H Polychromasia 3+ Poikilocytosis 3+ Anisocytosis 1+ Microcytosis 1+ Prothrombin 15.1 H Time Prothrombin 1.2 Time Ratio INR 1.18 International Normalized Rati o Activated 40.9 H Partial Thrombo plast Time Sodium Level 143 Potassium Level 3.0 L Chloride Level 110 Carbon Dioxide 25 Level Anion Gap 8 Blood Urea 21 H Nitrogen Creatinine 1.19 H Est Glomerular 55 L Filtrat Rate mL/min Glucose Level 140 Lactic Acid 3.5 *H Level Calcium Level 6.7 L Phosphorus 1.7 L Level Magnesium Level 1.9 Total Bilirubin 0.2 Direct 0.00 Bilirubin Indirect 0.2 Bilirubin Aspartate Amino 232 H Transf (AST/SGO T) Alanine 260 H Aminotransferas e (ALT/SGPT) Alkaline 42 Phosphatase Total Protein 4.3 L Albumin 2.2 L Globulin 2.10 Albumin/Globuli 1.04 n Ratio Blood Gas Blood Specimen arterial Source Arterial Blood 09/11/2018 12:15 Date Drawn :50 AM Arterial Blood 7.441 pH (Temp corrected ) Arterial Blood 29.8 L pCO2 (Temp correct) Arterial Blood 100.9 H pO2 (Temp corrected ) Arterial Blood 19.8 L HCO3 Arterial Blood -3.2 L Base Excess Arterial Blood 97.6 Oxygen Saturati on Brian Test ACCEPTAB Arterial Blood Right Radial Gas Puncture Site Arterial 0.3 Blood Carboxyhe moglobin Arterial Blood 0.1 Methemoglobin Blood Gas A-a 222.1 H O2 Differential Oxyhemoglobin 97.2 Percent Blood Gas 37.0 Temperature Blood Gas 20.0 Respiration Rate Blood Gas 20 Actual Respiration Rat e Blood Gas VENT - AC Modality FiO2 50.0 Blood Gas Tidal 500.0 Volume Blood Gas Low 5.0 PEEP Setting Blood Gas 20.0 Inspiratory Pressure Blood Gas MG Notified Whom Blood Gas 09/11/2018 12:22 Notified Time :26 AM Test 09/11/18 00:53 09/11/18 02:59 09/11/18 05:07 09/11/18 06:00 Bedside Glucose 123 146 165 White Blood 3.1 #L Count Red Blood Count 3.95 L Hemoglobin 11.9 L Hematocrit 34.8 L Mean 88.1 Corpuscular Volume Mean 30.1 Corpuscular Hemoglobin Mean 34.2 Corpuscular Hemoglobin Conc ent Red Cell 13.4 Distribution Width Platelet Count 109 L Mean Platelet 11.3 H Volume Immature 1.300 H Granulocytes % Neutrophils % Lymphocytes % Monocytes % Eosinophils % Basophils % Nucleated Red 0.0 Blood Cells % Immature 0.040 H Granulocytes # Neutrophils # Lymphocytes # Monocytes # Eosinophils # Basophils # Nucleated Red Blood Cells # Prothrombin 20.0 #H Time Prothrombin 1.6 Time Ratio INR 1.69 International Normalized Rati o Activated 44.9 H Partial Thrombo plast Time Blood Gas Blood Specimen arterial Source Arterial Blood 09/11/2018 5:42: Date Drawn 37 AM Arterial Blood 7.475 H pH (Temp corrected ) Arterial Blood 30.6 L pCO2 (Temp correct) Arterial Blood 73.8 L pO2 (Temp corrected ) Arterial Blood 22.3 HCO3 Arterial Blood -0.9 Base Excess Arterial Blood 96.1 Oxygen Saturati on Brian Test ACCEPTAB Arterial Blood Right Radial Gas Puncture Site Arterial 0.3 Blood Carboxyhe moglobin Arterial Blood 0.2 Methemoglobin Blood Gas A-a 250.3 H O2 Differential Oxyhemoglobin 95.6 Percent Blood Gas 35.4 Temperature Blood Gas 20.0 Respiration Rate Blood Gas 20 Actual Respiration Rat e Blood Gas VENT - AC Modality FiO2 50.0 Blood Gas Tidal 500.0 Volume Blood Gas Low 5.0 PEEP Setting Blood Gas 22.0 Inspiratory Pressure Blood Gas MG Notified Whom Blood Gas 09/11/2018 5:52: Notified Time 19 AM Sodium Level 139 Potassium Level 3.6 Chloride Level 107 Carbon Dioxide 26 Level Anion Gap 6 Blood Urea 24 H Nitrogen Creatinine 1.32 H Est Glomerular 49 L Filtrat Rate mL/min Glucose Level 163 Lactic Acid 3.2 *H Level Calcium Level 7.1 L Phosphorus 2.5 Level Magnesium Level 2.3 Total Bilirubin 0.3 Direct 0.00 Bilirubin Indirect 0.3 Bilirubin Aspartate Amino 251 H Transf (AST/SGO T) Alanine 271 H Aminotransferas e (ALT/SGPT) Alkaline 49 Phosphatase Total Protein 4.7 L Albumin 2.5 L Globulin 2.20 Albumin/Globuli 1.13 n Ratio Test 09/11/18 06:56 Bedside Glucose 126 Consultation Date/Type/Reason Admit Date/Time Sep 09, 2018 at 16:10 Hx of Present Illness 63-year-old female found down in the street unconscious. Paramedics called ACLS was begun, V. fib cardiac arrest. Patient transported [facility] and shock started off on hypothermia protocol. Patient is currently being rewarmed, 5 hours left. There is no information as to how long patient was down. At this time there is an incomplete database. Past Medical History Medical History: hypertension Medications Current Medications Potassium Chloride/Dextrose/ Sod Cl 1,000 ml @ 75 mls/hr [id number] IV Last administered on 09/09/18 18:28; Admin Dose 75 MLS/HR; Start 09/09/18 at 16:15; Status Hold Albuterol (Ventolin Hfa) 4 puff Q4H RESP THERAPY INH Last administered on 09/11/18 05:28; Admin Dose 4 PUFF; Start 09/09/18 at 17:00 Albuterol (Ventolin Hfa) 4 puff Q2H RESP THERAPY PRN INH SHORTNESS OF BREATH; Start 09/09/18 at 16:30 Acetaminophen (Tylenol Liquid) 650 mg Q6H PRN NGT PAIN LEVEL 1-3 OR FEVER Last administered on 09/09/18 23:18; Admin Dose 650 MG; Start 09/09/18 at 16:30 Morphine Sulfate (morphine) 2 mg Q4H PRN IV PAIN LEVEL 7-10 Last administered on 09/09/18 20:20; Admin Dose 2 MG; Start 09/09/18 at 16:30 Pantoprazole (Protonix Iv) 40 mg DAILY@06 IV Last administered on 09/11/18 05:25; Admin Dose 40 MG; Start 09/10/18 at 06:00 Piperacillin Sod/ Tazobactam Sod 100 ml @ 200 mls/hr Q8 IVPB Last administered on 09/11/18 06:36; Admin Dose 200 MLS/HR; Start 09/09/18 at 22:00 Midazolam HCl 50 ml @ 1 mls/hr TITRATE IV Last administered on 09/10/18 06:23; Admin Dose 2 MLS/HR; Start 09/09/18 at 18:30 Fentanyl 100 ml @ 2.5 mls/hr TITRATE IV Last administered on 09/10/18 09:45; Admin Dose 5 MLS/HR; Start 09/09/18 at 21:30 Diagnostic Test (Pha) (Accu-Chek) 1 ea Q1H XX Last administered on 09/11/18at 06:58; Admin Dose 1 EA; Start 09/09/18 at 22:00 Miscellaneous Information (* Miscellaneous Pharmacy Order) Treatment of Hypoglycemia: 1.BG 51... Per protocol XX ; Start 09/09/18 at 22:00 Dextrose (D50w Syringe) 25 ml Q15M PRN IV DECREASED GLUCOSE; Start 09/09/18 at 22:00 Dextrose (D50w Syringe) 50 ml Q15M PRN IV DECREASED GLUCOSE; Start 09/09/18 at 22:00 Insulin Human Regular 100 unit/ Sodium Chloride 100 ml @ 2 mls/hr PER PROTOCOL IV Last administered on 09/10/18at 00:51; Admin Dose 2 MLS/HR; Start 09/10/18 at 00:30 Vecuronium [place] 100 mg/ Dextrose 100 ml @ 3.25 mls/hr TITRATE IV Last administered on 09/10/18at 03:14; Admin Dose 3.25 MLS/HR; Start 09/10/18 at 02:00 Norepinephrine 16 mg/Dextrose 500 ml @ 1.88 mls/hr TITRATE IV Last administered on 09/10/18at 11:19; Admin Dose 28.13 MLS/HR; Start 09/10/18 at 08:00 Potassium Chloride (Potassium Chloride Pwd/Soln) 20 meq PER PROTOCOL PRN PO POTASSIUM REPLACEMENT PROTOCOL; Start 09/10/18 at 09:00 Potassium Chloride (Potassium Chloride Pwd/Soln) 30 meq PER PROTOCOL PRN PO POTASSIUM REPLACEMENT PROTOCOL; Start 09/10/18 at 09:00 Potassium Chloride (Potassium Chloride Pwd/Soln) 40 meq PER PROTOCOL PRN PO POTASSIUM REPLACEMENT PROTOCOL; Start 09/10/18 at 09:00 Eye Lubricant (Akwa Oint) 1 applic Q6 BOTH EYES Last administered on 09/11/18at 05:26; Admin Dose 1 APPLIC; Start 09/10/18 at 12:00 Sodium Bicarbonate 100 meq/Dextrose 1,000 ml @ 75 mls/hr [id number] IV Last administered on 09/10/18at 23:08; Admin Dose 75 MLS/HR; Start 09/10/18 at 10:30 Eye Lubricant (Artificial Tears Oph) 2 drop Q6H BOTH EYES Last administered on 09/11/18at 05:26; Admin Dose 2 DROP; Start 09/10/18 at 18:00 Aspirin (Aspirin) 300 mg DAILY IA ; Start 09/11/18 at 09:00 Allergies: Coded Allergies: Unknown: Unable to obtain (Unverified , 09/09/18) Past Surgical History Past Surgical Hx: other (unknown) Social History Alcohol Use: other (unknown) Smoking Status: Unknown if ever smoked Drug Use: other (unknown) Exam/Review of Systems Vital Signs Vitals Vital Signs Date Temp Pulse Resp B/P (MAP) Pulse Ox O2 O2 Flow FiO2 Time Delivery Rate 09/11/18 94.1 72 20 117/58 100 06:00 (77) 09/11/18 Mechanical 06:00 Ventilator 09/11/18 50 05:26 09/09/18 15.0 14:50 Intake and Output 09/10/18 09/10/18 09/11/18 1515:00 23:00 07:00 IntakeIntake Total 1093.75 ml 1021.96 ml 2005.85 ml OutputOutput Total 240 ml 249 ml 159 ml BalanceBalance 853.75 ml 772.96 ml 1846.85 ml Medications Medications Current Medications Potassium Chloride/Dextrose/ Sod Cl 1,000 ml @ 75 mls/hr [id number] IV Last administered on 09/09/18at 18:28; Admin Dose 75 MLS/HR; Start 09/09/18 at 16:15; Status Hold Albuterol (Ventolin Hfa) 4 puff Q4H RESP THERAPY INH Last administered on 09/11/18at 05:28; Admin Dose 4 PUFF; Start 09/09/18 at 17:00 Albuterol (Ventolin Hfa) 4 puff Q2H RESP THERAPY PRN INH SHORTNESS OF BREATH; Start 09/09/18 at 16:30 Acetaminophen (Tylenol Liquid) 650 mg Q6H PRN NGT PAIN LEVEL 1-3 OR FEVER Last administered on 09/09/18at 23:18; Admin Dose 650 MG; Start 09/09/18 at 16:30 Morphine Sulfate (morphine) 2 mg Q4H PRN IV PAIN LEVEL 7-10 Last administered on 09/09/18at 20:20; Admin Dose 2 MG; Start 09/09/18 at 16:30 Pantoprazole (Protonix Iv) 40 mg DAILY@06 IV Last administered on 09/11/18at 05:25; Admin Dose 40 MG; Start 09/10/18 at 06:00 Piperacillin Sod/ Tazobactam Sod 100 ml @ 200 mls/hr Q8 IVPB Last administered on 09/11/18at 06:36; Admin Dose 200 MLS/HR; Start 09/09/18 at 22:00 Midazolam HCl 50 ml @ 1 mls/hr TITRATE IV Last administered on 09/10/18at 06:23; Admin Dose 2 MLS/HR; Start 09/09/18 at 18:30 Fentanyl 100 ml @ 2.5 mls/hr TITRATE IV Last administered on 09/10/18at 09:45; A dmin Dose 5 MLS/HR; Start 09/09/18 at 21:30 Diagnostic Test (Pha) (Accu-Chek) 1 ea Q1H XX Last administered on 09/11/18at 06:58; Admin Dose 1 EA; Start 09/09/18 at 22:00 Miscellaneous Information (* Miscellaneous Pharmacy Order) Treatment of Hypoglycemia: 1.BG 51... Per protocol XX ; Start 09/09/18 at 22:00 Dextrose (D50w Syringe) 25 ml Q15M PRN IV DECREASED GLUCOSE; Start 09/09/18 at 22:00 Dextrose (D50w Syringe) 50 ml Q15M PRN IV DECREASED GLUCOSE; Start 09/09/18 at 22:00 Insulin Human Regular 100 unit/ Sodium Chloride 100 ml @ 2 mls/hr PER PROTOCOL IV Last administered on 09/10/18at 00:51; Admin Dose 2 MLS/HR; Start 09/10/18 at 00:30 Vecuronium [place] 100 mg/ Dextrose 100 ml @ 3.25 mls/hr TITRATE IV Last administered on 09/10/18at 03:14; Admin Dose 3.25 MLS/HR; Start 09/10/18 at 02:00 Norepinephrine 16 mg/Dextrose 500 ml @ 1.88 mls/hr TITRATE IV Last administered on 09/10/18at 11:19; Admin Dose 28.13 MLS/HR; Start 09/10/18 at 08:00 Potassium Chloride (Potassium Chloride Pwd/Soln) 20 meq PER PROTOCOL PRN PO POTASSIUM REPLACEMENT PROTOCOL; Start 09/10/18 at 09:00 Potassium Chloride (Potassium Chloride Pwd/Soln) 30 meq PER PROTOCOL PRN PO POTASSIUM REPLACEMENT PROTOCOL; Start 09/10/18 at 09:00 Potassium Chloride (Potassium Chloride Pwd/Soln) 40 meq PER PROTOCOL PRN PO POTASSIUM REPLACEMENT PROTOCOL; Start 09/10/18 at 09:00 Eye Lubricant (Akwa Oint) 1 applic Q6 BOTH EYES Last administered on 09/11/18at 05:26; Admin Dose 1 APPLIC; Start 09/10/18 at 12:00 Sodium Bicarbonate 100 meq/Dextrose 1,000 ml @ 75 mls/hr [id number] IV Last administered on 09/10/18at 23:08; Admin Dose 75 MLS/HR; Start 09/10/18 at 10:30 Eye Lubricant (Artificial Tears Oph) 2 drop Q6H BOTH EYES Last administered on 09/11/18at 05:26; Admin Dose 2 DROP; Start 09/10/18 at 18:00 Aspirin (Aspirin) 300 mg DAILY IA ; Start 09/11/18 at 09:00 SERA DOWELL Sep 11, 2018 08:27
--- NOTE | 2018-09-11 08:51 | PN ---
Date/Time of Note Date/Time of Note DATE: 09/11/18 TIME: 08:51 Assessment/Plan VTE Prophylaxis Risk score (from Ns)>0 risk: 10 SCD applied (from Ns): No SCD contraindicated: patient refusal Pharmacological prophylaxis: heparin Lines/Catheters IV Catheter Type (from [facility]): Peripheral IV Urinary Cath still in place: Yes Reason Cath still needed: terminal illness/intractable pain Assessment/Plan Assessment/Plan 1. Vfib Cardiac arrest with ROSC - Cardiology on board and appreciate consultation. Continue current treatment and keep K >4 and Mg >2 - After being found down in Vfib arrest, patient underwent ACLS with 4 rounds of epi, Amiodarone x1, bicarb with ROSC. Most likely secondary to severe hypokalemia given found with K 2.1 at time of admission - completed hypothermia and will monitor for improvement in mentation - ECHO reviewed and patient with poor EF 20% - Utox negative 2. Septic shock secondary to pneumonia - right sided pneumonia noted on CXR - Nebs PRN - Broad spectrum antibiotics on board and will continue on gentle IVF - Lactic acid initially 10 and trending down. Will continue to monitor 3. Acute hypoxic respiratory failure on mechanical ventilation - secondary to #1 and #2 - Pulmonology on board for ventilator management 4. Transaminitis - most likely secondary to hypoperfusion - trending down 5. HTN - will hold home medications given on pressor support for hypotension 6. Hypokalemia- improving - will continue replacing with goal >4 7. JULISSA - renal function continues to worsen and will avoid nephrotoxic agents - IVF on board - if continues to worsen, will consult Nephrology for recommendations 8. Disposition - Continue monitoring in ICU while on mechanical ventilation and pressor support >45 minutes of critical care time spent with patient and family at bedside Result Diagram: 09/11/18 0600 09/11/18 0600 Results 24hrs Laboratory Tests Test 09/10/18 09:05 09/10/18 10:29 09/10/18 11:19 09/10/18 11:52 Bedside Glucose 147 109 Lactic Acid 4.5 *H Level White Blood 1.8 L Count Red Blood Count 4.46 Hemoglobin 13.4 Hematocrit 40.6 Mean 91.0 Corpuscular Volume Mean 30.0 Corpuscular Hemoglobin Mean 33.0 Corpuscular Hemoglobin Conc ent Red Cell 13.5 Distribution Width Platelet Count 150 Mean Platelet 11.2 H Volume Immature 0.600 H Granulocytes % Neutrophils % Segmented 10 L Neutrophils % (Manual) Band 37 H Neutrophils % (Manual) Lymphocytes % Lymphocytes % 32 (Manual) Reactive 1 H Lymphocytes % (Manual) Monocytes % Monocytes % 8 (Manual) Eosinophils % Basophils % Metamyelocytes 7 H % (manual) Myelocytes % 4 H (Manual) Nucleated Red 1 H Blood Cells % Immature 0.010 Granulocytes # Neutrophils # Neutrophils # 0.2 L (Manual) Band 0.6 Neutrophils # Lymphocytes 0.5 L (Manual) Lymphocytes # Reactive 0.0 Lymphocytes # Monocytes # Monocytes # 0.1 L (Manual) Eosinophils # Basophils # Metamyelocytes 0.1 H # Myelocytes # 0.0 Nucleated Red Blood Cells # Platelet DECREASED Estimate Giant Platelets 12 H Polychromasia 3+ Poikilocytosis 2+ Anisocytosis 1+ Microcytosis 1+ Prothrombin 13.5 Time Prothrombin 1.1 Time Ratio INR 1.02 International Normalized Rati o Activated 35.1 H Partial Thrombo plast Time Sodium Level 145 H Potassium Level 3.0 L Chloride Level 111 H Carbon Dioxide 21 Level Anion Gap 13 Blood Urea 20 Nitrogen Creatinine 1.17 H Est Glomerular 57 L Filtrat Rate mL/min Glucose Level 141 Calcium Level 7.3 L Phosphorus 2.0 #L Level Magnesium Level 3.2 H Total Bilirubin 0.2 Direct 0.00 Bilirubin Indirect 0.2 Bilirubin Aspartate Amino 408 H Transf (AST/SGO T) Alanine 368 H Aminotransferas e (ALT/SGPT) Alkaline 63 Phosphatase Creatine Kinase 9831 H Creatine Kinase 0.5 Index Creatinine 52.30 H Kinase MB (Mass) Troponin I 1.140 *H Total Protein 5.3 L Albumin 2.8 L Globulin 2.50 Albumin/Globuli 1.12 n Ratio Test 09/10/18 12:00 09/10/18 13:04 09/10/18 15:22 09/10/18 17:23 Blood Gas Blood arterial Specimen Source Arterial Blood 09/10/2018 12:23: Date Drawn 44 PM Arterial Blood 7.341 L pH (Temp corrected ) Arterial Blood 35.5 pCO2 (Temp correct) Arterial Blood 136.7 H pO2 (Temp corrected ) Arterial Blood 19.6 L HCO3 Arterial Blood -6.7 L Base Excess Arterial Blood 98.7 H Oxygen Saturati on Brian Test ACCEPTAB Arterial Blood Right Radial Gas Puncture Site Arterial 0.3 Blood Carboxyhe moglobin Arterial Blood 0.2 Methemoglobin Blood Gas A-a 549.8 H O2 Differential Oxyhemoglobin 98.2 Percent Blood Gas 33.2 Temperature Blood Gas 20.0 Respiration Rate Blood Gas 20 Actual Respiration Rat e Blood Gas VENT - AC Modality FiO2 100.0 Blood Gas Tidal 500.0 Volume Blood Gas Low 5.0 PEEP Setting Blood Gas R.ORFELIPE R.N. Critical Value Read Back Blood Gas TM Notified Whom Blood Gas 09/10/2018 12:32: Notified Time 33 PM Bedside Glucose 125 135 130 Test 09/10/18 17:59 09/10/18 18:00 09/10/18 18:53 09/10/18 21:05 Sodium Level 141 Potassium Level 3.6 Chloride Level 110 Carbon Dioxide 24 Level Anion Gap 7 Blood Urea 22 H Nitrogen Creatinine 1.20 H Est Glomerular 55 L Filtrat Rate mL/min Glucose Level 173 Lactic Acid 3.7 *H Level Calcium Level 7.4 L Phosphorus 2.4 L Level Magnesium Level 2.3 Total Bilirubin 0.2 Direct 0.00 Bilirubin Indirect 0.2 Bilirubin Aspartate Amino 353 H Transf (AST/SGO T) Alanine 342 H Aminotransferas e (ALT/SGPT) Alkaline 58 Phosphatase Total Protein 5.1 L Albumin 2.7 L Globulin 2.40 Albumin/Globuli 1.12 n Ratio White Blood 2.1 L Count Red Blood Count 4.40 Hemoglobin 13.1 Hematocrit 39.3 Mean 89.3 Corpuscular Volume Mean 29.8 Corpuscular Hemoglobin Mean 33.3 Corpuscular Hemoglobin Conc ent Red Cell 13.4 Distribution Width Platelet Count 122 L Mean Platelet 11.1 H Volume Immature 0.000 L Granulocytes % Neutrophils % Segmented 12 L Neutrophils % (Manual) Band 42 H Neutrophils % (Manual) Lymphocytes % Lymphocytes % 19 (Manual) Reactive 3 H Lymphocytes % (Manual) Monocytes % Monocytes % 10 (Manual) Eosinophils % Basophils % Metamyelocytes 12 H % (manual) Myelocytes % 2 H (Manual) Nucleated Red 0.0 Blood Cells % Immature 0.000 Granulocytes # Neutrophils # Neutrophils # 0.3 L (Manual) Band 0.8 H Neutrophils # Lymphocytes 0.3 L (Manual) Lymphocytes # Reactive 0.0 Lymphocytes # Monocytes # Monocytes # 0.2 L (Manual) Eosinophils # Basophils # Metamyelocytes 0.2 H # Myelocytes # 0.0 Nucleated Red Blood Cells # Platelet NORMAL Estimate Giant Platelets 19 H Polychromasia 1+ Poikilocytosis 3+ Anisocytosis 1+ Macrocytosis 1+ Prothrombin 13.9 Time Prothrombin 1.1 Time Ratio INR 1.06 International Normalized Rati o Activated 38.3 H Partial Thrombo plast Time Blood Gas Blood arterial Specimen Source Arterial Blood 09/10/2018 6:25:2 Date Drawn 4 PM Arterial Blood 7.375 pH (Temp corrected ) Arterial Blood 38.1 pCO2 (Temp correct) Arterial Blood 168.2 H pO2 (Temp corrected ) Arterial Blood 22.6 HCO3 Arterial Blood -3.4 L Base Excess Arterial Blood 99.1 H Oxygen Saturati on Rbian Test ACCEPTAB Arterial Blood Left Radial Gas Puncture Site Arterial 0.1 Blood Carboxyhe moglobin Arterial Blood 0.3 Methemoglobin Blood Gas A-a 368.6 H O2 Differential Oxyhemoglobin 98.7 Percent Blood Gas 33.7 Temperature Blood Gas 20.0 Respiration Rate Blood Gas 20 Actual Respiration Rat e Blood Gas TRACH COLLAR Modality FiO2 80.0 Blood Gas Tidal 500.0 Volume Blood Gas Low 5.0 PEEP Setting Blood Gas Regan THOMAS RN Critical Value Read Back Blood Gas RDIX Notified Whom Blood Gas 09/10/2018 6:37:0 Notified Time 3 PM Bedside Glucose 144 164 Test 09/10/18 23:05 09/10/18 23:57 09/11/18 00:00 09/11/18 00:53 Bedside Glucose 162 123 White Blood 2.2 L Count Red Blood Count 3.70 L Hemoglobin 11.3 L Hematocrit 33.0 L Mean 89.2 Corpuscular Volume Mean 30.5 Corpuscular Hemoglobin Mean 34.2 Corpuscular Hemoglobin Conc ent Red Cell 13.4 Distribution Width Platelet Count 106 L Mean Platelet 11.8 H Volume Immature 1.400 H Granulocytes % Neutrophils % Segmented 24 L Neutrophils % (Manual) Band 46 H Neutrophils % (Manual) Lymphocytes % Lymphocytes % 21 (Manual) Monocytes % Monocytes % 2 (Manual) Eosinophils % Basophils % Metamyelocytes 7 H % (manual) Nucleated Red 0.0 Blood Cells % Immature 0.030 Granulocytes # Neutrophils # Neutrophils # 0.6 L (Manual) Band 1.0 H Neutrophils # Lymphocytes 0.4 L (Manual) Lymphocytes # Monocytes # Monocytes # 0.0 L (Manual) Eosinophils # Basophils # Metamyelocytes 0.1 H # Nucleated Red Blood Cells # Platelet DECREASED Estimate Giant Platelets 4 H Polychromasia 3+ Poikilocytosis 3+ Anisocytosis 1+ Microcytosis 1+ Prothrombin 15.1 H Time Prothrombin 1.2 Time Ratio INR 1.18 International Normalized Rati o Activated 40.9 H Partial Thrombo plast Time Sodium Level 143 Potassium Level 3.0 L Chloride Level 110 Carbon Dioxide 25 Level Anion Gap 8 Blood Urea 21 H Nitrogen Creatinine 1.19 H Est Glomerular 55 L Filtrat Rate mL/min Glucose Level 140 Lactic Acid 3.5 *H Level Calcium Level 6.7 L Phosphorus 1.7 L Level Magnesium Level 1.9 Total Bilirubin 0.2 Direct 0.00 Bilirubin Indirect 0.2 Bilirubin Aspartate Amino 232 H Transf (AST/SGO T) Alanine 260 H Aminotransferas e (ALT/SGPT) Alkaline 42 Phosphatase Total Protein 4.3 L Albumin 2.2 L Globulin 2.10 Albumin/Globuli 1.04 n Ratio Blood Gas Blood arterial Specimen Source Arterial Blood 09/11/2018 12:15: Date Drawn 50 AM Arterial Blood 7.441 pH (Temp corrected ) Arterial Blood 29.8 L pCO2 (Temp correct) Arterial Blood 100.9 H pO2 (Temp corrected ) Arterial Blood 19.8 L HCO3 Arterial Blood -3.2 L Base Excess Arterial Blood 97.6 Oxygen Saturati on Brian Test ACCEPTAB Arterial Blood Right Radial Gas Puncture Site Arterial 0.3 Blood Carboxyhe moglobin Arterial Blood 0.1 Methemoglobin Blood Gas A-a 222.1 H O2 Differential Oxyhemoglobin 97.2 Percent Blood Gas 37.0 Temperature Blood Gas 20.0 Respiration Rate Blood Gas 20 Actual Respiration Rat e Blood Gas VENT - AC Modality FiO2 50.0 Blood Gas Tidal 500.0 Volume Blood Gas Low 5.0 PEEP Setting Blood Gas 20.0 Inspiratory Pressure Blood Gas MG Notified Whom Blood Gas 09/11/2018 12:22: Notified Time 26 AM Test 09/11/18 02:59 09/11/18 05:07 09/11/18 06:00 09/11/18 06:56 Bedside Glucose 146 165 126 White Blood 3.1 #L Count Red Blood Count 3.95 L Hemoglobin 11.9 L Hematocrit 34.8 L Mean 88.1 Corpuscular Volume Mean 30.1 Corpuscular Hemoglobin Mean 34.2 Corpuscular Hemoglobin Conc ent Red Cell 13.4 Distribution Width Platelet Count 109 L Mean Platelet 11.3 H Volume Immature 1.300 H Granulocytes % Neutrophils % Lymphocytes % Monocytes % Eosinophils % Basophils % Nucleated Red 0.0 Blood Cells % Immature 0.040 H Granulocytes # Neutrophils # Lymphocytes # Monocytes # Eosinophils # Basophils # Nucleated Red Blood Cells # Prothrombin 20.0 #H Time Prothrombin 1.6 Time Ratio INR 1.69 International Normalized Rati o Activated 44.9 H Partial Thrombo plast Time Blood Gas Blood arterial Specimen Source Arterial Blood 09/11/2018 5:42:3 Date Drawn 7 AM Arterial Blood 7.475 H pH (Temp corrected ) Arterial Blood 30.6 L pCO2 (Temp correct) Arterial Blood 73.8 L pO2 (Temp corrected ) Arterial Blood 22.3 HCO3 Arterial Blood -0.9 Base Excess Arterial Blood 96.1 Oxygen Saturati on Brian Test ACCEPTAB Arterial Blood Right Radial Gas Puncture Site Arterial 0.3 Blood Carboxyhe moglobin Arterial Blood 0.2 Methemoglobin Blood Gas A-a 250.3 H O2 Differential Oxyhemoglobin 95.6 Percent Blood Gas 35.4 Temperature Blood Gas 20.0 Respiration Rate Blood Gas 20 Actual Respiration Rat e Blood Gas VENT - AC Modality FiO2 50.0 Blood Gas Tidal 500.0 Volume Blood Gas Low 5.0 PEEP Setting Blood Gas 22.0 Inspiratory Pressure Blood Gas MG Notified Whom Blood Gas 09/11/2018 5:52:1 Notified Time 9 AM Sodium Level 139 Potassium Level 3.6 Chloride Level 107 Carbon Dioxide 26 Level Anion Gap 6 Blood Urea 24 H Nitrogen Creatinine 1.32 H Est Glomerular 49 L Filtrat Rate mL/min Glucose Level 163 Lactic Acid 3.2 *H Level Calcium Level 7.1 L Phosphorus 2.5 Level Magnesium Level 2.3 Total Bilirubin 0.3 Direct 0.00 Bilirubin Indirect 0.3 Bilirubin Aspartate Amino 251 H Transf (AST/SGO T) Alanine 271 H Aminotransferas e (ALT/SGPT) Alkaline 49 Phosphatase Total Protein 4.7 L Albumin 2.5 L Globulin 2.20 Albumin/Globuli 1.13 n Ratio Subjective 24 Hr Interval Summary Free Text/Dictation Patient is currently in warming phase and family at bedside. Requiring pressor support but no acute overnight events. Exam/Review of Systems Vital Signs Vitals Vital Signs Date Temp Pulse Resp B/P (MAP) Pulse Ox O2 O2 Flow FiO2 Time Delivery Rate 09/11/18 20 85/68 (74) 100 08:00 09/11/18 50 08:00 09/11/18 94.7 65 07:00 09/11/18 Mechanical 06:00 Ventilator 09/09/18 15.0 14:50 Intake and Output 09/10/18 09/10/18 09/11/18 1414:59 22:59 06:59 IntakeIntake Total 1117.40 ml 1124.06 ml 1913.35 ml OutputOutput Total 250 ml 254 ml 184 ml BalanceBalance 867.40 ml 870.06 ml 1729.35 ml Exam General: Intubated and remains unresponsive. HEENT: Atraumatic, normocephalic. The pupils are equal, round and reactive Neck: Supple with full range of motion Lungs: Diminished with coarse breath sounds. no wheezing appreciated Heart: Normal S1-S2, Regular rhythm and bradycardic. no murmurs Abdomen: Soft , nontender to palpation, nondistended, No guarding no rebound tenderness Extremities: Normal to inspection, no edema no cyanosis Neurologic: pupils reactive, gag present Medications Medications Current Medications Potassium Chloride/Dextrose/ Sod Cl 1,000 ml @ 75 mls/hr [id number] IV Last administered on 09/09/18 18:28; Admin Dose 75 MLS/HR; Start 09/09/18 at 16:15; Status Hold Albuterol (Ventolin Hfa) 4 puff Q4H RESP THERAPY INH Last administered on 05:28; Admin Dose 4 PUFF; Start 09/09/18 at 17:00 Albuterol (Ventolin Hfa) 4 puff Q2H RESP THERAPY PRN INH SHORTNESS OF BREATH; Start 09/09/18 at 16:30 Acetaminophen (Tylenol Liquid) 650 mg Q6H PRN NGT PAIN LEVEL 1-3 OR FEVER Last administered on 09/09/18 23:18; Admin Dose 650 MG; Start 09/09/18 at 16:30 Morphine Sulfate (morphine) 2 mg Q4H PRN IV PAIN LEVEL 7-10 Last administered on 09/09/18 20:20; Admin Dose 2 MG; Start 09/09/18 at 16:30 Pantoprazole (Protonix Iv) 40 mg DAILY@06 IV Last administered on 1/9/19at 05:25; Admin Dose 40 MG; Start 09/10/18 at 06:00 Piperacillin Sod/ Tazobactam Sod 100 ml @ 200 mls/hr Q8 IVPB Last administered on 09/11/18at 06:36; Admin Dose 200 MLS/HR; Start 09/09/18 at 22:00 Midazolam HCl 50 ml @ 1 mls/hr TITRATE IV Last administered on 09/10/18at 06:23; Admin Dose 2 MLS/HR; Start 09/09/18 at 18:30 Fentanyl 100 ml @ 2.5 mls/hr TITRATE IV Last administered on 09/10/18at 09:45; Admin Dose 5 MLS/HR; Start 09/09/18 at 21:30 Diagnostic Test (Pha) (Accu-Chek) 1 ea Q1H XX Last administered on 09/11/18at 06:58; Admin Dose 1 EA; Start 09/09/18 at 22:00 Miscellaneous Information (* Miscellaneous Pharmacy Order) Treatment of Hypoglycemia: 1.BG 51... Per protocol XX ; Start 09/09/18 at 22:00 Dextrose (D50w Syringe) 25 ml Q15M PRN IV DECREASED GLUCOSE; Start 09/09/18 at 22:00 Dextrose (D50w Syringe) 50 ml Q15M PRN IV DECREASED GLUCOSE; Start 09/09/18 at 22:00 Insulin Human Regular 100 unit/ Sodium Chloride 100 ml @ 2 mls/hr PER PROTOCOL IV Last administered on 09/10/18at 00:51; Admin Dose 2 MLS/HR; Start 09/10/18 at 00:30 Vecuronium Escalon 100 mg/ Dextrose 100 ml @ 3.25 mls/hr TITRATE IV Last administered on 09/10/18at 03:14; Admin Dose 3.25 MLS/HR; Start 09/10/18 at 02:00 Norepinephrine 16 mg/Dextrose 500 ml @ 1.88 mls/hr TITRATE IV Last administered on 09/10/18at 11:19; Admin Dose 28.13 MLS/HR; Start 09/10/18 at 08:00 Potassium Chloride (Potassium Chloride Pwd/Soln) 20 meq PER PROTOCOL PRN PO POTASSIUM REPLACEMENT PROTOCOL; Start 09/10/18 at 09:00 Potassium Chloride (Potassium Chloride Pwd/Soln) 30 meq PER PROTOCOL PRN PO POTASSIUM REPLACEMENT PROTOCOL; Start 09/10/18 at 09:00 Potassium Chloride (Potassium Chloride Pwd/Soln) 40 meq PER PROTOCOL PRN PO POTASSIUM REPLACEMENT PROTOCOL; Start 09/10/18 at 09:00 Eye Lubricant (Akwa Oint) 1 applic Q6 BOTH EYES Last administered on 09/11/18at 05:26; Admin Dose 1 APPLIC; Start 09/10/18 at 12:00 Sodium Bicarbonate 100 meq/Dextrose 1,000 ml @ 75 mls/hr [id number] IV Last administered on 09/10/18at 23:08; Admin Dose 75 MLS/HR; Start 09/10/18 at 10:30 Eye Lubricant (Artificial Tears Oph) 2 drop Q6H BOTH EYES Last administered on 09/11/18at 05:26; Admin Dose 2 DROP; Start 09/10/18 at 18:00 Aspirin (Aspirin) 300 mg DAILY PA ; Start 09/11/18 at 09:00 OZZIE ALVAREZ MD Sep 11, 2018 08:51
[2018-09-11] MEDS ORDERED: D5W-0.45 NACL + KCL 20 MEQ 1,000 ML IV SCH (09:00)
[2018-09-11] MEDS: FENTAnyl (DRIP) 1000 mcg/100mL 100 ML IV SCH (09:00)
[2018-09-11] MEDS: MIDAZOLAM (DRIP) 50 mg/50 mL 50 ML IV SCH (09:30)
[2018-09-11] MEDS: ASPIRIN 300 MG SUPP PR SCH (09:30)
--- NOTE | 2018-09-11 09:32 | CONS ---
Date/Time of Note Date/Time of Note DATE: 09/11/18 TIME: 09:29 Assessment/Plan Assessment/Plan Assessment/Plan Chest x-ray showing extensive right-sided pneumonia. Patient is currently on Versed 6 mg/h, insulin 1 unit/h, fentanyl 100 mics per hour, vecuronium drip via protocol. Ventilator setting; AC of 20, tidal volume 500, PEEP of 5, 50% FiO2. Assessment and recommendations; 1. Patient admitted with cardiac arrest due to V. fib likely due to hypokalemia status post CPR and currently on rewarming phase of hypothermia protocol. Patient has remained hemodynamically stable. 2. Extensive right-sided pneumonia, likely aspiration. 3. Interval correction of severe metabolic acidosis. 4. Leukopenia. 5. Non-ST elevation [place]. 6. Mild increase in serum creatinine. Likely due to hypoperfusion. Patient however maintaining adequate urine output. Continue current supportive care. Mental status to be assessed once patient is off hypothermia protocol. Obtain follow-up chest x-ray 24 hours. I did have a detailed discussion with the patient's nephew at bedside answered all his questions. Prognosis is guarded. 40 minutes of critical care time was spent evaluating the patient. Result Diagram: 09/11/18 0600 09/11/18 0600 Results 24hrs Laboratory Tests Test 09/10/18 10:29 09/10/18 11:19 09/10/18 11:52 09/10/18 12:00 Lactic Acid 4.5 *H Level Bedside Glucose 109 White Blood 1.8 L Count Red Blood Count 4.46 Hemoglobin 13.4 Hematocrit 40.6 Mean 91.0 Corpuscular Volume Mean 30.0 Corpuscular Hemoglobin Mean 33.0 Corpuscular Hemoglobin Conc ent Red Cell 13.5 Distribution Width Platelet Count 150 Mean Platelet 11.2 H Volume Immature 0.600 H Granulocytes % Neutrophils % Segmented 10 L Neutrophils % (Manual) Band 37 H Neutrophils % (Manual) Lymphocytes % Lymphocytes % 32 (Manual) Reactive 1 H Lymphocytes % (Manual) Monocytes % Monocytes % 8 (Manual) Eosinophils % Basophils % Metamyelocytes 7 H % (manual) Myelocytes % 4 H (Manual) Nucleated Red 1 H Blood Cells % Immature 0.010 Granulocytes # Neutrophils # Neutrophils # 0.2 L (Manual) Band 0.6 Neutrophils # Lymphocytes 0.5 L (Manual) Lymphocytes # Reactive 0.0 Lymphocytes # Monocytes # Monocytes # 0.1 L (Manual) Eosinophils # Basophils # Metamyelocytes 0.1 H # Myelocytes # 0.0 Nucleated Red Blood Cells # Platelet DECREASED Estimate Giant Platelets 12 H Polychromasia 3+ Poikilocytosis 2+ Anisocytosis 1+ Microcytosis 1+ Prothrombin 13.5 Time Prothrombin 1.1 Time Ratio INR 1.02 International Normalized Rati o Activated 35.1 H Partial Thrombo plast Time Sodium Level 145 H Potassium Level 3.0 L Chloride Level 111 H Carbon Dioxide 21 Level Anion Gap 13 Blood Urea 20 Nitrogen Creatinine 1.17 H Est Glomerular 57 L Filtrat Rate mL/min Glucose Level 141 Calcium Level 7.3 L Phosphorus 2.0 #L Level Magnesium Level 3.2 H Total Bilirubin 0.2 Direct 0.00 Bilirubin Indirect 0.2 Bilirubin Aspartate Amino 408 H Transf (AST/SGO T) Alanine 368 H Aminotransferas e (ALT/SGPT) Alkaline 63 Phosphatase Creatine Kinase 9831 H Creatine Kinase 0.5 Index Creatinine 52.30 H Kinase MB (Mass) Troponin I 1.140 *H Total Protein 5.3 L Albumin 2.8 L Globulin 2.50 Albumin/Globuli 1.12 n Ratio Blood Gas Blood arterial Specimen Source Arterial Blood 09/10/2018 12:23: Date Drawn 44 PM Arterial Blood 7.341 L pH (Temp corrected ) Arterial Blood 35.5 pCO2 (Temp correct) Arterial Blood 136.7 H pO2 (Temp corrected ) Arterial Blood 19.6 L HCO3 Arterial Blood -6.7 L Base Excess Arterial Blood 98.7 H Oxygen Saturati on Brian Test ACCEPTAB Arterial Blood Right Radial Gas Puncture Site Arterial 0.3 Blood Carboxyhe moglobin Arterial Blood 0.2 Methemoglobin Blood Gas A-a 549.8 H O2 Differential Oxyhemoglobin 98.2 Percent Blood Gas 33.2 Temperature Blood Gas 20.0 Respiration Rate Blood Gas 20 Actual Respiration Rat e Blood Gas VENT - AC Modality FiO2 100.0 Blood Gas Tidal 500.0 Volume Blood Gas Low 5.0 PEEP Setting Blood Gas R.COLBY R.N. Critical Value Read Back Blood Gas TM Notified Whom Blood Gas 09/10/2018 12:32: Notified Time 33 PM Test 09/10/18 13:04 09/10/18 15:22 09/10/18 17:23 09/10/18 17:59 Bedside Glucose 125 135 130 Sodium Level 141 Potassium Level 3.6 Chloride Level 110 Carbon Dioxide 24 Level Anion Gap 7 Blood Urea 22 H Nitrogen Creatinine 1.20 H Est Glomerular 55 L Filtrat Rate mL/min Glucose Level 173 Lactic Acid 3.7 *H Level Calcium Level 7.4 L Phosphorus 2.4 L Level Magnesium Level 2.3 Total Bilirubin 0.2 Direct 0.00 Bilirubin Indirect 0.2 Bilirubin Aspartate Amino 353 H Transf (AST/SGO T) Alanine 342 H Aminotransferas e (ALT/SGPT) Alkaline 58 Phosphatase Total Protein 5.1 L Albumin 2.7 L Globulin 2.40 Albumin/Globuli 1.12 n Ratio Test 09/10/18 18:00 09/10/18 18:53 09/10/18 21:05 09/10/18 23:05 White Blood 2.1 L Count Red Blood Count 4.40 Hemoglobin 13.1 Hematocrit 39.3 Mean 89.3 Corpuscular Volume Mean 29.8 Corpuscular Hemoglobin Mean 33.3 Corpuscular Hemoglobin Conc ent Red Cell 13.4 Distribution Width Platelet Count 122 L Mean Platelet 11.1 H Volume Immature 0.000 L Granulocytes % Neutrophils % Segmented 12 L Neutrophils % (Manual) Band 42 H Neutrophils % (Manual) Lymphocytes % Lymphocytes % 19 (Manual) Reactive 3 H Lymphocytes % (Manual) Monocytes % Monocytes % 10 (Manual) Eosinophils % Basophils % Metamyelocytes 12 H % (manual) Myelocytes % 2 H (Manual) Nucleated Red 0.0 Blood Cells % Immature 0.000 Granulocytes # Neutrophils # Neutrophils # 0.3 L (Manual) Band 0.8 H Neutrophils # Lymphocytes 0.3 L (Manual) Lymphocytes # Reactive 0.0 Lymphocytes # Monocytes # Monocytes # 0.2 L (Manual) Eosinophils # Basophils # Metamyelocytes 0.2 H # Myelocytes # 0.0 Nucleated Red Blood Cells # Platelet NORMAL Estimate Giant Platelets 19 H Polychromasia 1+ Poikilocytosis 3+ Anisocytosis 1+ Macrocytosis 1+ Prothrombin 13.9 Time Prothrombin 1.1 Time Ratio INR 1.06 International Normalized Rati o Activated 38.3 H Partial Thrombo plast Time Blood Gas Blood arterial Specimen Source Arterial Blood 09/10/2018 6:25:2 Date Drawn 4 PM Arterial Blood 7.375 pH (Temp corrected ) Arterial Blood 38.1 pCO2 (Temp correct) Arterial Blood 168.2 H pO2 (Temp corrected ) Arterial Blood 22.6 HCO3 Arterial Blood -3.4 L Base Excess Arterial Blood 99.1 H Oxygen Saturati on Brian Test ACCEPTAB Arterial Blood Left Radial Gas Puncture Site Arterial 0.1 Blood Carboxyhe moglobin Arterial Blood 0.3 Methemoglobin Blood Gas A-a 368.6 H O2 Differential Oxyhemoglobin 98.7 Percent Blood Gas 33.7 Temperature Blood Gas 20.0 Respiration Rate Blood Gas 20 Actual Respiration Rat e Blood Gas TRACH COLLAR Modality FiO2 80.0 Blood Gas Tidal 500.0 Volume Blood Gas Low 5.0 PEEP Setting Blood Gas Regan THOMAS RN Critical Value Read Back Blood Gas RDIX Notified Whom Blood Gas 09/10/2018 6:37:0 Notified Time 3 PM Bedside Glucose 144 164 162 Test 09/10/18 23:57 09/11/18 00:00 09/11/18 00:53 09/11/18 02:59 White Blood 2.2 L Count Red Blood Count 3.70 L Hemoglobin 11.3 L Hematocrit 33.0 L Mean 89.2 Corpuscular Volume Mean 30.5 Corpuscular Hemoglobin Mean 34.2 Corpuscular Hemoglobin Conc ent Red Cell 13.4 Distribution Width Platelet Count 106 L Mean Platelet 11.8 H Volume Immature 1.400 H Granulocytes % Neutrophils % Segmented 24 L Neutrophils % (Manual) Band 46 H Neutrophils % (Manual) Lymphocytes % Lymphocytes % 21 (Manual) Monocytes % Monocytes % 2 (Manual) Eosinophils % Basophils % Metamyelocytes 7 H % (manual) Nucleated Red 0.0 Blood Cells % Immature 0.030 Granulocytes # Neutrophils # Neutrophils # 0.6 L (Manual) Band 1.0 H Neutrophils # Lymphocytes 0.4 L (Manual) Lymphocytes # Monocytes # Monocytes # 0.0 L (Manual) Eosinophils # Basophils # Metamyelocytes 0.1 H # Nucleated Red Blood Cells # Platelet DECREASED Estimate Giant Platelets 4 H Polychromasia 3+ Poikilocytosis 3+ Anisocytosis 1+ Microcytosis 1+ Prothrombin 15.1 H Time Prothrombin 1.2 Time Ratio INR 1.18 International Normalized Rati o Activated 40.9 H Partial Thrombo plast Time Sodium Level 143 Potassium Level 3.0 L Chloride Level 110 Carbon Dioxide 25 Level Anion Gap 8 Blood Urea 21 H Nitrogen Creatinine 1.19 H Est Glomerular 55 L Filtrat Rate mL/min Glucose Level 140 Lactic Acid 3.5 *H Level Calcium Level 6.7 L Phosphorus 1.7 L Level Magnesium Level 1.9 Total Bilirubin 0.2 Direct 0.00 Bilirubin Indirect 0.2 Bilirubin Aspartate Amino 232 H Transf (AST/SGO T) Alanine 260 H Aminotransferas e (ALT/SGPT) Alkaline 42 Phosphatase Total Protein 4.3 L Albumin 2.2 L Globulin 2.10 Albumin/Globuli 1.04 n Ratio Blood Gas Blood arterial Specimen Source Arterial Blood 09/11/2018 12:15: Date Drawn 50 AM Arterial Blood 7.441 pH (Temp corrected ) Arterial Blood 29.8 L pCO2 (Temp correct) Arterial Blood 100.9 H pO2 (Temp corrected ) Arterial Blood 19.8 L HCO3 Arterial Blood -3.2 L Base Excess Arterial Blood 97.6 Oxygen Saturati on Brian Test ACCEPTAB Arterial Blood Right Radial Gas Puncture Site Arterial 0.3 Blood Carboxyhe moglobin Arterial Blood 0.1 Methemoglobin Blood Gas A-a 222.1 H O2 Differential Oxyhemoglobin 97.2 Percent Blood Gas 37.0 Temperature Blood Gas 20.0 Respiration Rate Blood Gas 20 Actual Respiration Rat e Blood Gas VENT - AC Modality FiO2 50.0 Blood Gas Tidal 500.0 Volume Blood Gas Low 5.0 PEEP Setting Blood Gas 20.0 Inspiratory Pressure Blood Gas MG Notified Whom Blood Gas 09/11/2018 12:22: Notified Time 26 AM Bedside Glucose 123 146 Test 09/11/18 05:07 09/11/18 06:00 09/11/18 06:56 Bedside Glucose 165 126 White Blood 3.1 #L Count Red Blood Count 3.95 L Hemoglobin 11.9 L Hematocrit 34.8 L Mean 88.1 Corpuscular Volume Mean 30.1 Corpuscular Hemoglobin Mean 34.2 Corpuscular Hemoglobin Conc ent Red Cell 13.4 Distribution Width Platelet Count 109 L Mean Platelet 11.3 H Volume Immature 1.300 H Granulocytes % Neutrophils % Lymphocytes % Monocytes % Eosinophils % Basophils % Nucleated Red 0.0 Blood Cells % Immature 0.040 H Granulocytes # Neutrophils # Lymphocytes # Monocytes # Eosinophils # Basophils # Nucleated Red Blood Cells # Prothrombin 20.0 #H Time Prothrombin 1.6 Time Ratio INR 1.69 International Normalized Rati o Activated 44.9 H Partial Thrombo plast Time Blood Gas Blood arterial Specimen Source Arterial Blood 09/11/2018 5:42:3 Date Drawn 7 AM Arterial Blood 7.475 H pH (Temp corrected ) Arterial Blood 30.6 L pCO2 (Temp correct) Arterial Blood 73.8 L pO2 (Temp corrected ) Arterial Blood 22.3 HCO3 Arterial Blood -0.9 Base Excess Arterial Blood 96.1 Oxygen Saturati on Brian Test ACCEPTAB Arterial Blood Right Radial Gas Puncture Site Arterial 0.3 Blood Carboxyhe moglobin Arterial Blood 0.2 Methemoglobin Blood Gas A-a 250.3 H O2 Differential Oxyhemoglobin 95.6 Percent Blood Gas 35.4 Temperature Blood Gas 20.0 Respiration Rate Blood Gas 20 Actual Respiration Rat e Blood Gas VENT - AC Modality FiO2 50.0 Blood Gas Tidal 500.0 Volume Blood Gas Low 5.0 PEEP Setting Blood Gas 22.0 Inspiratory Pressure Blood Gas MG Notified Whom Blood Gas 09/11/2018 5:52:1 Notified Time 9 AM Sodium Level 139 Potassium Level 3.6 Chloride Level 107 Carbon Dioxide 26 Level Anion Gap 6 Blood Urea 24 H Nitrogen Creatinine 1.32 H Est Glomerular 49 L Filtrat Rate mL/min Glucose Level 163 Lactic Acid 3.2 *H Level Calcium Level 7.1 L Phosphorus 2.5 Level Magnesium Level 2.3 Total Bilirubin 0.3 Direct 0.00 Bilirubin Indirect 0.3 Bilirubin Aspartate Amino 251 H Transf (AST/SGO T) Alanine 271 H Aminotransferas e (ALT/SGPT) Alkaline 49 Phosphatase Total Protein 4.7 L Albumin 2.5 L Globulin 2.20 Albumin/Globuli 1.13 n Ratio Consultation Date/Type/Reason Admit Date/Time Sep 09, 2018 at 16:10 Initial Consult Date 09/10/18 Type of Consult Pulmonary/critical care History of presenting illness; patient is a 63-year-old lady who was brought into the hospital after found unresponsive. Patient underwent CPR and was in V. fib. Patient was successfully resuscitated intubated and transferred to ICU. By the time I saw her, patient is on mechanical ventilation and on hypothermia protocol. Patient also has remained hypotensive and on high-dose pressor support. Past medical history; 1. Hypertension. Medications; reviewed. Patient is currently on Versed 2 mg/h, fentanyl 50 mics per hour, Levophed 24 mics per minute, insulin drip 0.5 units/h, patient also is on hypothermia protocol with dialysis per protocol. Allergies; unknown. Family history, social history, occupational history is not available. Review of system; unable to be obtained. General exam; elderly female, orally intubated, paralyzed and sedated. Currently no distress. Requesting Provider: OZZIE ALVAREZ MD 24 HR Interval Summary Free Text/Dictation Patient's condition remains critical. Currently on rewarming phase of hypothermia protocol. Patient has remained hemodynamically stable. General exam; elderly female, orally intubated, sedated and paralyzed. Currently no distress. Exam/Review of Systems Vital Signs Vitals Vital Signs Date Temp Pulse Resp B/P (MAP) Pulse Ox O2 O2 Flow FiO2 Time Delivery Rate 09/11/18 20 85/68 (74) 100 08:00 09/11/18 50 08:00 09/11/18 94.7 65 07:00 09/11/18 Mechanical 06:00 Ventilator 09/09/18 15.0 14:50 Intake and Output 09/10/18 09/10/18 09/11/18 1515:00 23:00 07:00 IntakeIntake Total 1093.75 ml 1021.96 ml 2005.85 ml OutputOutput Total 240 ml 249 ml 159 ml BalanceBalance 853.75 ml 772.96 ml 1846.85 ml Exam HEENT exam; supple neck, no JVD. No lymphadenopathy. Midline trachea. No thyromegaly. Pupils are small bilaterally. Orally intubated. Patient has fair dentition. Chest exam; diminished but clear breath sounds. S1-S2 audible, no murmurs. Regular rhythm. Abdomen exam; soft, no organomegaly. Bowel sounds are sluggish. Abdomen is nondistended. Extremity exam; no peripheral edema. Pulses 1+. CONSTRUCTION [employer]ER exam; patient is sedated and paralyzed. Medications Medications Current Medications Potassium Chloride/Dextrose/ Sod Cl 1,000 ml @ 75 mls/hr [id number] IV Last administered on 09/09/18at 18:28; Admin Dose 75 MLS/HR; Start 09/09/18 at 16:15; Status Hold Albuterol (Ventolin Hfa) 4 puff Q4H RESP THERAPY INH Last administered on 09/11/18at 05:28; Admin Dose 4 PUFF; Start 09/09/18 at 17:00 Albuterol (Ventolin Hfa) 4 puff Q2H RESP THERAPY PRN INH SHORTNESS OF BREATH; Start 09/09/18 at 16:30 Acetaminophen (Tylenol Liquid) 650 mg Q6H PRN NGT PAIN LEVEL 1-3 OR FEVER Last administered on 09/09/18 23:18; Admin Dose 650 MG; Start 09/09/18 at 16:30 Morphine Sulfate (morphine) 2 mg Q4H PRN IV PAIN LEVEL 7-10 Last administered on 09/09/18 20:20; Admin Dose 2 MG; Start 09/09/18 at 16:30 Pantoprazole (Protonix Iv) 40 mg DAILY@06 IV Last administered on 09/11/18 05:25; Admin Dose 40 MG; Start 09/10/18 at 06:00 Piperacillin Sod/ Tazobactam Sod 100 ml @ 200 mls/hr Q8 IVPB Last administered on 09/11/18 06:36; Admin Dose 200 MLS/HR; Start 09/09/18 at 22:00 Midazolam HCl 50 ml @ 1 mls/hr TITRATE IV Last administered on 09/10/18 06:23; Admin Dose 2 MLS/HR; Start 09/09/18 at 18:30 Fentanyl 100 ml @ 2.5 mls/hr TITRATE IV Last administered on 09/10/18 09:45; Admin Dose 5 MLS/HR; Start 09/09/18 at 21:30 Diagnostic Test (Pha) (Accu-Chek) 1 ea Q1H XX Last administered on 09/11/18 06:58; Admin Dose 1 EA; Start 09/09/18 at 22:00 Miscellaneous Information (* Miscellaneous Pharmacy Order) Treatment of Hypoglycemia: 1.BG 51... Per protocol XX ; Start 09/09/18 at 22:00 Dextrose (D50w Syringe) 25 ml Q15M PRN IV DECREASED GLUCOSE; Start 09/09/18 at 22:00 Dextrose (D50w Syringe) 50 ml Q15M PRN IV DECREASED GLUCOSE; Start 09/09/18 at 22:00 Insulin Human Regular 100 unit/ Sodium Chloride 100 ml @ 2 mls/hr PER PROTOCOL IV Last administered on 09/10/18 00:51; Admin Dose 2 MLS/HR; Start 09/10/18 at 00:30 Vecuronium Benjamin 100 mg/ Dextrose 100 ml @ 3.25 mls/hr TITRATE IV Last administered on 09/10/18 03:14; Admin Dose 3.25 MLS/HR; Start 09/10/18 at 02:00 Norepinephrine 16 mg/Dextrose 500 ml @ 1.88 mls/hr TITRATE IV Last administered on 09/10/18at 11:19; Admin Dose 28.13 MLS/HR; Start 09/10/18 at 08:00 Potassium Chloride (Potassium Chloride Pwd/Soln) 20 meq PER PROTOCOL PRN PO POTASSIUM REPLACEMENT PROTOCOL; Start 09/10/18 at 09:00 Potassium Chloride (Potassium Chloride Pwd/Soln) 30 meq PER PROTOCOL PRN PO POTASSIUM REPLACEMENT PROTOCOL; Start 09/10/18 at 09:00 Potassium Chloride (Potassium Chloride Pwd/Soln) 40 meq PER PROTOCOL PRN PO POTASSIUM REPLACEMENT PROTOCOL; Start 09/10/18 at 09:00 Eye Lubricant (Akwa Oint) 1 applic Q6 BOTH EYES Last administered on 09/11/18at 05:26; Admin Dose 1 APPLIC; Start 09/10/18 at 12:00 Eye Lubricant (Artificial Tears Oph) 2 drop Q6H BOTH EYES Last administered on 09/11/18at 05:26; Admin Dose 2 DROP; Start 09/10/18 at 18:00 Aspirin (Aspirin) 300 mg DAILY WI ; Start 09/11/18 at 09:00 Potassium Chloride/Dextrose/ Sod Cl 1,000 ml @ 75 mls/hr [id number] IV ; Start 09/11/18 at 09:00 ANABELLA LANTIGUA Sep 11, 2018 09:32
[2018-09-11] MEDS: DEXTROSE 5%-0.45% NACL 1,000 ML IV SCH ×2 (10:00→21:53)
--- NOTE | 2018-09-11 12:02 | RADRPT ---
Vent Rate: 53 bpm RR Interval: 0 msec ME Interval: 272 msec QRS Duration: 170 msec QT Interval: 640 msec QTC Interval: 600 msec P-R-T [place]: 76 - 3 - 0 degrees Sinus bradycardia with 1st degree AV block Left bundle branch block Abnormal ECG Electronically Signed By: Parviz Santos [id number]
--- NOTE | 2018-09-11 12:05 | RADRPT ---
Vent Rate: 70 bpm RR Interval: 0 msec MA Interval: 184 msec QRS Duration: 160 msec QT Interval: 586 msec QTC Interval: 632 msec P-R-T [place]: 74 - -36 - 146 degrees Normal sinus rhythm Left axis deviation Left bundle branch block Abnormal ECG Electronically Signed By: Parviz Santos [id number]
--- NOTE | 2018-09-11 16:01 | NUR ---
SS NOTE: CONSULT RECEIVED ORDER THAT PT HAS 2 DTRS AND THEY EACH WANT TO BE PT'S SPOKESPERSON. PT ADMITTED S/P CARDIAC ARREST. S/P HYPOTHERMIA PROTOCOL. PT CURRENTLY INTUBATED. SW MET WITH PT'S DTR, ALCIDES . ALCIDES REPORTED THAT PT WAS A [employer]. SHE HAS BEEN INDEPENDENT. REPORTED THAT PT IS AND DOES NOT HAVE A GOOD RELATIONSHIP WITH HER EX-. SHE ALSO REPORTED THAT PT'S DTR, MARBELLA IS NOT VERY CLOSE TO PT AND DOES NOT VISIT PT REGULARLY. PT ALSO HAS A SON WHO IS NOT INVOLVED WITH PT. ALCIDES REPORTED THAT SHE IS ON ALL OF PT'S DOCUMENTS HER SPOKESPERSON AND BENEFACTOR. STATED THAT PT HAS TOLD HER THAT SHE HAS NAMED ALCIDES HER DPOA. AT THIS TIME, DTR DOES NOT HAVE PT'S AHCD. STATED THAT SHE WILL ATTEMPT TO LOCATE PT'S AHCD COPY AT PT'S APT. ALCIDES AWARE THAT HER SISTER ALSO WANTS TO BE PT'S SPOKESPERSON. SW EXPLAINED TO DTR THAT IF PT DOES NOT HAVE AHCD THEN BOTH DTRS HAVE EQUAL RIGHT TO MAKE DECISIONS AND SW RECOMMENDED FOR FAMILY TO COMMUNICATE WITH EACH OTHER AND MAKE DECISIONS TOGETHER THAT WOULD BENEFIT PT. DTR VERBALIZED UNDERSTANDING. STATED THAT SHE WILL BRING THE AHCD COPY SOON SHE FINDS IT. RNLILLIE AND STORE PROMOTER, TRACY AWARE.
[2018-09-11] MEDS ORDERED: FUROSEMIDE 20 MG INJ IV ONE (16:30)
--- NOTE | 2018-09-11 16:38 | NUR ---
NUTRITION NOTE: PATIENT S/P CARDIAC ARREST, HYPOTHERMIA PROTOCOL NOW ON REWARMING PHASE. NGT IN PLACE, CLAMPED. IF UNABLE TO EXTUBATE, CONSIDER NGT FEEDING OF ISOSOURCE HN @ 30 ML/HR , INCREASE BY 10 ML/HR Q 6 HOURS TO GOAL OF 50 ML/HR TO PROVIDE 1440 ESTELLE/65 GM. PROT/ 1176 ML FREE WATER. WATER FLUSHES 50 ML Q 6 HOURS OR PER .
--- NOTE | 2018-09-11 18:43 | NUR ---
Pt is not alert, opens eyes on pain stimuli, does not track, does not follow commands. SR with 1 degree AV block on monitor. Pt is on 7mc of levo to keep MAP above 65. Pt has NG tube L nare clamped, when put on low interm suction, no output present. Borderline urine output, pt received Lasix 20 mg IV. No BM. Pt is on Insulin ggt at 0.2 units per hour, alg I. Pt reached hypothermia at 1433. Pt's family (2 daughters, aunt, son in law) updated regarding plan of care, all medications, possible prognosis and diagnosis by RN, Dr Rm, Dr Sears, Dr Graham, health service worker, Respiratory therapist. All questions answered in details. RN faxed a request for medical record release information to outpatient clinic. Awaiting for response. Addendum: 09/11/18 at 1900 by LILLIE MAYO RN PMD and LEAD REFINER WERE UPDATED REGARDING ALL ABNORMAL LABS DURING THE DAY, ORDERS RECEIVED AND IMPLEMENTED.
[2018-09-12] VITALS (64 sets, daily range): BP systolic 94–169; BP diastolic 45–99; PULSE 75–103; RESP 14–28
[2018-09-12] MEDS: ARTIFICIAL TEARS 15 ML OPH BOTH EYES SCH ×3 (00:01→12:00)
[2018-09-12] MEDS: ALBUTEROL HFA 8 GM INHALER INH SCH ×5 (00:06→19:57)
[2018-09-12] MEDS: ACCU-CHEK XX SCH ×4 (01:00→03:00)
[2018-09-12] MEDS ORDERED: GLUCOSE GEL 15 GRAM TUBE BUCCAL PRN (04:30)
[2018-09-12] MEDS ORDERED: DEXTROSE 50% 50 ML SYRINGE IV PRN ×2 (04:30)
[2018-09-12] MEDS ORDERED: GLUCAGON 1 MG INJ IM PRN (04:30)
[2018-09-12] MEDS ORDERED: GLUCOSE GEL 15 GRAM TUBE PO PRN ×2 (04:30)
[2018-09-12] MEDS: INSULIN ASPART [NOVOLOG] 3 ML PEN SC SCH ×5 (05:00→21:00)
[2018-09-12] MEDS: DEXTROSE 5%-0.45% NACL 1,000 ML IV SCH ×2 (06:00→09:30)
[2018-09-12] MEDS: PIPER-TAZO 3.375 GM IV (PMX) 100 ML IVPB SCH ×3 (06:03→21:08)
[2018-09-12] MEDS: PANTOPRAZOLE 40 MG INJ IV SCH (06:03)
--- NOTE | 2018-09-12 06:51 | NUR ---
EOSS: PATIENT REMAINED STABLE THIS SHIFT. OPENS EYES AND ATTEMPTS TO FOLLOW TO VOICE. CURRENTLY ON LEVOPHED AT 6 TO MAINTAIN A MAP GREATER THAN 65. AND MAINTENANCE FLUIDS OF D5 1/2 NS AT 100. CONTINUES TO BE VENTED THIS SHIFT. NO TEMPERATURE THIS SHIFT. FAMILY AT BEDSIDE ALL NIGHT, ANSWERED ALL QUESTIONS AT THIS TIME. CHECKED ON PATIENT HOURLY AND PRN BY NURSING STAFF.
--- NOTE | 2018-09-12 09:07 | PN ---
Date/Time of Note Date/Time of Note DATE: 09/12/18 TIME: 09:07 Assessment/Plan VTE Prophylaxis Risk score (from Nsg)>0 risk: 8 SCD applied (from Nsg): Yes Pharmacological prophylaxis: heparin Lines/Catheters IV Catheter Type (from Nrsg): Peripheral IV Urinary Cath still in place: Yes Reason Cath still needed: terminal illness/intractable pain Assessment/Plan Assessment/Plan 1. Vfib Cardiac arrest with ROSC s/p hypothermia - Cardiology on board and appreciate consultation. Continue current treatment and keep K >4 and Mg >2 - After being found down in Vfib arrest, patient underwent ACLS with 4 rounds of epi, Amiodarone x1, bicarb with ROSC. Most likely secondary to severe hypokalemia given found with K 2.1 at time of admission - ECHO reviewed and patient with poor EF 20% 2. Septic shock secondary to aspiration pneumonia - right sided pneumonia noted on CXR - Nebs PRN - Broad spectrum antibiotics on board - Lactic acid normalized 3. Acute hypoxic respiratory failure on mechanical ventilation - Pulmonology on board for ventilator management and appreciate consultation 4. Transaminitis- improving - most likely secondary to hypoperfusion - trending down 5. HTN - will hold home medications given on pressor support for hypotension 6. Hypokalemia- improving - will continue replacing with goal >4 7. JULISSA - nephrology consultation appreciated and recommending d/c fluids - Mild improvement after started on diuretics. may be secondary to cardiorenal 8. Disposition - Continue monitoring in ICU which weaning off pressors and ventilator support - Plan of care discussed with daughter and son in law at bedside. Will have f amily meeting tomorrow to discuss patients condition >45 minutes of critical care time spent with patient and family at bedside Result Diagram: 09/12/180 09/12/18439 Results 24hrs Laboratory Tests Test 09/11/18 09:10 09/11/18 10:54 09/11/18 11:46 09/11/18 12:00 Bedside Glucose 181 116 White Blood Count 4.3 #L Red Blood Count 3.83 L Hemoglobin 11.6 L Hematocrit 33.7 L Mean Corpuscular 88.0 Volume Mean Corpuscular 30.3 Hemoglobin Mean Corpuscular 34.4 Hemoglobin Concen t Red Cell 13.7 Distribution Width Platelet Count 123 L Mean Platelet 11.7 H Volume Immature 3.000 H Granulocytes % Neutrophils % Segmented 16 L Neutrophils % (Manual) Band Neutrophils 40 H % (Manual) Lymphocytes % Lymphocytes % 34 (Manual) Reactive 1 H Lymphocytes % (Manual) Monocytes % Monocytes % 4 (Manual) Eosinophils % Basophils % Basophils % 1 (Manual) Metamyelocytes % 3 H (manual) Myelocytes % 1 H (Manual) Nucleated Red 1 H Blood Cells % Immature 0.130 H Granulocytes # Neutrophils # Neutrophils # 0.8 L (Manual) Band Neutrophils 1.7 H # Lymphocytes 1.4 (Manual) Lymphocytes # Reactive 0.0 Lymphocytes # Monocytes # Monocytes # 0.1 L (Manual) Eosinophils # Basophils # Basophils # 0.0 (Manual) Metamyelocytes # 0.1 H Myelocytes # 0.0 Nucleated Red Blood Cells # Platelet Estimate NORMAL Giant Platelets 28 H Dimorphic Red 1+ Blood Cells Polychromasia 1+ Poikilocytosis 3+ Anisocytosis 1+ Microcytosis 1+ Prothrombin Time 17.9 H Prothrombin Time 1.4 Ratio INR International 1.47 Normalized Ratio Activated 39.7 H Partial Thrombopl ast Time Fibrinogen 697.0 #H Sodium Level 138 Potassium Level 3.6 Chloride Level 107 Carbon Dioxide 24 Level Anion Gap 7 Blood Urea 25 H Nitrogen Creatinine 1.47 H Est Glomerular 43 L Filtrat Rate mL/min Glucose Level 137 Lactic Acid Level 3.1 *H Calcium Level 7.0 L Phosphorus Level 3.0 Magnesium Level 2.0 Total Bilirubin 0.4 Direct Bilirubin 0.00 Indirect 0.4 Bilirubin Aspartate Amino 227 H Transf (AST/SGOT) Alanine 252 H Aminotransferase (ALT/SGPT) Alkaline 49 Phosphatase Total Protein 4.8 L Albumin 2.6 L Globulin 2.20 Albumin/Globulin 1.18 Ratio Amylase Level 119 # Lipase 19 L Blood Gas Blood arterial Specimen Source Arterial Blood 09/11/2018 1:00:24 Date Drawn PM Arterial Blood pH 7.478 H (Temp corrected) Arterial Blood 29.6 L pCO2 (Temp correct) Arterial Blood 95.7 pO2 (Temp corrected) Arterial Blood 21.5 L HCO3 Arterial Blood -1.2 Base Excess Arterial Blood 97.1 Oxygen Saturation Brian Test ACCEPTAB Arterial Blood Left Radial Gas Puncture Site Arterial 0.3 Blood Carboxyhemo globin Arterial Blood 0.3 Methemoglobin Blood Gas A-a O2 227.8 H Differential Oxyhemoglobin 96.5 Percent Blood Gas 36.7 Temperature Blood Gas 20.0 Respiration Rate Blood Gas Actual 20 Respiration Rate Blood Gas VENT - AC Modality FiO2 50.0 Blood Gas Tidal 500.0 Volume Blood Gas Low 5.0 PEEP Setting Blood Gas T TONI CN Critical Value Read Back Blood Gas RDIX Notified Whom Blood Gas 09/11/2018 1:16:56 Notified Time PM Test 09/11/18 12:08 09/11/18 13:34 09/11/18 15:24 09/11/18 16:35 Bedside Glucose 102 124 120 110 Test 09/11/18 18:01 09/11/18 18:06 09/11/18 19:53 09/11/18 22:18 Bedside Glucose 108 122 126 Prothrombin Time 17.3 H Prothrombin Time 1.4 Ratio INR International 1.40 Normalized Ratio Activated 39.9 H Partial Thrombopl ast Time Sodium Level 140 Potassium Level 3.4 L Chloride Level 104 Carbon Dioxide 25 Level Anion Gap 11 Blood Urea 27 H Nitrogen Creatinine 1.55 H Est Glomerular 41 L Filtrat Rate mL/min Glucose Level 139 Lactic Acid Level 2.6 *H Calcium Level 7.1 L Phosphorus Level 3.6 Magnesium Level 1.9 Total Bilirubin 0.4 Direct Bilirubin 0.00 Indirect 0.4 Bilirubin Aspartate Amino 215 H Transf (AST/SGOT) Alanine 233 H Aminotransferase (ALT/SGPT) Alkaline 51 Phosphatase Total Protein 5.2 L Albumin 2.7 L Globulin 2.50 Albumin/Globulin 1.08 Ratio Test 09/12/18 00:00 09/12/18 01:57 09/12/18 04:40 09/12/18 06:02 Bedside Glucose 103 85 89 White Blood Count 7.2 # Red Blood Count 3.32 L Hemoglobin 10.0 L Hematocrit 30.0 L Mean Corpuscular 90.4 Volume Mean Corpuscular 30.1 Hemoglobin Mean Corpuscular 33.3 Hemoglobin Concen t Red Cell 14.2 Distribution Width Platelet Count 97 #L Mean Platelet 11.3 H Volume Immature 0.600 H Granulocytes % Neutrophils % Segmented 42 Neutrophils % (Manual) Band Neutrophils 44 H % (Manual) Lymphocytes % Lymphocytes % 5 L (Manual) Monocytes % Monocytes % 1 (Manual) Eosinophils % Basophils % Metamyelocytes % 8 H (manual) Nucleated Red 0.0 Blood Cells % Immature 0.040 H Granulocytes # Neutrophils # Neutrophils # 3.2 (Manual) Band Neutrophils 3.1 H # Lymphocytes 0.3 L (Manual) Lymphocytes # Monocytes # Monocytes # 0.0 L (Manual) Eosinophils # Basophils # Metamyelocytes # 0.5 H Nucleated Red Blood Cells # Platelet Estimate DECREASED Anisocytosis 1+ Microcytosis 1+ Sodium Level 140 Potassium Level 3.4 L Chloride Level 104 Carbon Dioxide 28 Level Anion Gap 8 Blood Urea 25 H Nitrogen Creatinine 1.58 H Est Glomerular 40 L Filtrat Rate mL/min Glucose Level 96 # Lactic Acid Level 1.9 Calcium Level 7.0 L Magnesium Level 1.8 Total Bilirubin 0.4 Direct Bilirubin 0.00 Indirect 0.4 Bilirubin Aspartate Amino 161 H Transf (AST/SGOT) Alanine 196 H Aminotransferase (ALT/SGPT) Alkaline 49 Phosphatase Total Protein 4.1 #L Albumin 2.2 L Globulin 1.90 Albumin/Globulin 1.15 Ratio Subjective 24 Hr Interval Summary Free Text/Dictation Patient more awake this am and opening eyes. Following simple commands but not squeezing hands. Per family at bedside, she did lift both arms in the air in the am. Still requiring pressor support. Family updated regarding condition and all questions addressed. Exam/Review of Systems Vital Signs Vitals Vital Signs Date Temp Pulse Resp B/P (MAP) Pulse Ox O2 O2 Flow FiO2 Time Delivery Rate 09/12/18 89 25 134/60 100 06:30 (84) 09/12/18 Mechanical 06:00 Ventilator 09/12/18 40 04:55 09/12/18 98.9 04:00 09/09/18 15.0 14:50 Intake and Output 09/11/18 09/11/18 09/12/18 1515:00 23:00 07:00 IntakeIntake Total 2083.46 ml 844.66 ml 995.56 ml OutputOutput Total 190 ml 710 ml 450 ml BalanceBalance 1893.46 ml 134.66 ml 545.56 ml Exam General: remains intubated and awake. opening eyes and following some commands HEENT: Atraumatic, normocephalic. The pupils are equal, round and reactive. erythema right sclera Neck: Supple with full range of motion Lungs: Diminished with coarse breath sounds. no wheezing appreciated Heart: Normal S1-S2, Regular rate and rhythm. no murmurs Abdomen: Soft , nontender to palpation, nondistended, No guarding no rebound tenderness Extremities: Normal to inspection, no edema no cyanosis Neurologic: pupils reactive, following some commands Medications Medications Current Medications Albuterol (Ventolin Hfa) 4 puff Q4H RESP THERAPY INH Last administered on 09/12/18 08:33; Admin Dose 4 PUFF; Start 09/09/18 at 17:00 Albuterol (Ventolin Hfa) 4 puff Q2H RESP THERAPY PRN INH SHORTNESS OF BREATH; Start 09/09/18 at 16:30 Acetaminophen (Tylenol Liquid) 650 mg Q6H PRN NGT PAIN LEVEL 1-3 OR FEVER Last administered on 09/09/18 23:18; Admin Dose 650 MG; Start 09/09/18 at 16:30 Morphine Sulfate (morphine) 2 mg Q4H PRN IV PAIN LEVEL 7-10 Last administered on 09/09/18 20:20; Admin Dose 2 MG; Start 09/09/18 at 16:30 Pantoprazole (Protonix Iv) 40 mg DAILY@06 IV Last administered on 09/12/18 06:03; Admin Dose 40 MG; Start 09/10/18 at 06:00 Piperacillin Sod/ Tazobactam Sod 100 ml @ 200 mls/hr Q8 IVPB Last administered on 09/12/18 06:03; Admin Dose 200 MLS/HR; Start 09/09/18 at 22:00 Midazolam HCl 50 ml @ 1 mls/hr TITRATE IV Last administered on 09/11/18 09:30; Admin Dose 6 MLS/HR; Start 09/09/18 at 18:30 Fentanyl 100 ml @ 2.5 mls/hr TITRATE IV Last administered on 09/11/18 09:00; Admin Dose 10 MLS/HR; Start 09/09/18 at 21:30 Norepinephrine 16 mg/Dextrose 500 ml @ 1.88 mls/hr TITRATE IV Last administered on 09/11/18 12:02; Admin Dose 37.5 MLS/HR; Start 09/10/18 at 08:00 Potassium Chloride (Potassium Chloride Pwd/Soln) 20 meq PER PROTOCOL PRN PO POTASSIUM REPLACEMENT PROTOCOL; Start 09/10/18 at 09:00 Potassium Chloride (Potassium Chloride Pwd/Soln) 30 meq PER PROTOCOL PRN PO POTASSIUM REPLACEMENT PROTOCOL; Start 09/10/18 at 09:00 Potassium Chloride (Potassium Chloride Pwd/Soln) 40 meq PER PROTOCOL PRN PO POTASSIUM REPLACEMENT PROTOCOL; Start 09/10/18 at 09:00 Eye Lubricant (Artificial Tears Oph) 2 drop Q6H BOTH EYES Last administered on 09/12/18at 06:03; Admin Dose 2 DROP; Start 09/10/18 at 18:00 Aspirin (Aspirin) 300 mg DAILY [place] Last administered on 09/11/18at 09:30; Admin Dose 300 MG; Start 09/11/18 at 09:00 Dextrose/Sodium Chloride 1,000 ml @ 100 mls/hr Q10H IV Last administered on 09/11/18at 21:53; Admin Dose 100 MLS/HR; Start 09/11/18 at 10:00 Insulin Aspart (Novolog Insulin Pen) NOVOLOG *MILD* ALGORI... Q4 SC ; Start 09/12/18 at 05:00 Miscellaneous Information 1 ea NOTE XX ; Start 09/12/18 at 04:30 Glucose (Glutose) 15 gm Q15M PRN PO DECREASED GLUCOSE; Start 09/12/18 at 04:30 Glucose (Glutose) 22.5 gm Q15M PRN PO DECREASED GLUCOSE; Start 09/12/18 at 04:30 Dextrose (D50w Syringe) 25 ml Q15M PRN IV DECREASED GLUCOSE; Start 09/12/18 at 04:30 Dextrose (D50w Syringe) 50 ml Q15M PRN IV DECREASED GLUCOSE; Start 09/12/18 at 04:30 Glucagon (Glucagen) 1 mg Q15M PRN IM DECREASED GLUCOSE; Start 09/12/18 at 04:30 Glucose (Glutose) 15 gm Q15M PRN BUCCAL DECREASED GLUCOSE; Start 09/12/18 at 04:30 OZZIE ALVAREZ MD Sep 12, 2018 09:07
[2018-09-12] MEDS: ASPIRIN 300 MG SUPP PR SCH (09:30)
[2018-09-12] MEDS: ACETAMINOPHEN 650MG/20.3ML CUP NGT PRN (09:30)
--- NOTE | 2018-09-12 09:47 | CONS ---
Date/Time of Note Date/Time of Note DATE: 09/12/18 TIME: 09:44 Assessment/Plan Assessment/Plan Assessment/Plan Ventilator setting; AC of 20, tidal volume 500, PEEP of 5, 40% FiO2. Patient is currently on Levophed 6 mics per minute. Assessment and recommendations; 1. Patient admitted with cardiac arrest likely hypokalemia as the possibility factor for ventricular fibrillation. Status post CPR and hypothermia protocol. Patient now gradually waking up but still remains unresponsive to commands. 2. Extensive right-sided pneumonia likely due to aspiration. Patient currently on appropriate antimicrobial regimen. There has been significant improvement in oxygenation status. 3. Mild acute renal injury. Likely from hypoperfusion. Patient however maintaining adequate urine output. 4. Non-ST elevation IN. Likely from hypoperfusion as well. 5. Mild anemia and thrombocytopenia. 6. At this point difficult to rule out any anoxic brain injury. Continue current supportive care. Continue to hold sedation. Obtain follow-up chest x-ray 24 hours. Weaning from ventilator will depend upon adequate mental status recovery. I did have a very detailed discussion with the patient's daughter at bedside and answered all her questions. 35 minutes of critical care time was spent evaluating the patient. Result Diagram: 09/12/1843909/12/18439 Results 24hrs Laboratory Tests Test 09/11/18 10:54 09/11/18 11:46 09/11/18 12:00 09/11/18 12:08 Bedside Glucose 116 102 White Blood Count 4.3 #L Red Blood Count 3.83 L Hemoglobin 11.6 L Hematocrit 33.7 L Mean Corpuscular 88.0 Volume Mean Corpuscular 30.3 Hemoglobin Mean Corpuscular 34.4 Hemoglobin Concen t Red Cell 13.7 Distribution Width Platelet Count 123 L Mean Platelet 11.7 H Volume Immature 3.000 H Granulocytes % Neutrophils % Segmented 16 L Neutrophils % (Manual) Band Neutrophils 40 H % (Manual) Lymphocytes % Lymphocytes % 34 (Manual) Reactive 1 H Lymphocytes % (Manual) Monocytes % Monocytes % 4 (Manual) Eosinophils % Basophils % Basophils % 1 (Manual) Metamyelocytes % 3 H (manual) Myelocytes % 1 H (Manual) Nucleated Red 1 H Blood Cells % Immature 0.130 H Granulocytes # Neutrophils # Neutrophils # 0.8 L (Manual) Band Neutrophils 1.7 H # Lymphocytes 1.4 (Manual) Lymphocytes # Reactive 0.0 Lymphocytes # Monocytes # Monocytes # 0.1 L (Manual) Eosinophils # Basophils # Basophils # 0.0 (Manual) Metamyelocytes # 0.1 H Myelocytes # 0.0 Nucleated Red Blood Cells # Platelet Estimate NORMAL Giant Platelets 28 H Dimorphic Red 1+ Blood Cells Polychromasia 1+ Poikilocytosis 3+ Anisocytosis 1+ Microcytosis 1+ Prothrombin Time 17.9 H Prothrombin Time 1.4 Ratio INR International 1.47 Normalized Ratio Activated 39.7 H Partial Thrombopl ast Time Fibrinogen 697.0 #H Sodium Level 138 Potassium Level 3.6 Chloride Level 107 Carbon Dioxide 24 Level Anion Gap 7 Blood Urea 25 H Nitrogen Creatinine 1.47 H Est Glomerular 43 L Filtrat Rate mL/min Glucose Level 137 Lactic Acid Level 3.1 *H Calcium Level 7.0 L Phosphorus Level 3.0 Magnesium Level 2.0 Total Bilirubin 0.4 Direct Bilirubin 0.00 Indirect 0.4 Bilirubin Aspartate Amino 227 H Transf (AST/SGOT) Alanine 252 H Aminotransferase (ALT/SGPT) Alkaline 49 Phosphatase Total Protein 4.8 L Albumin 2.6 L Globulin 2.20 Albumin/Globulin 1.18 Ratio Amylase Level 119 # Lipase 19 L Blood Gas Blood arterial Specimen Source Arterial Blood 09/11/2018 1:00:24 Date Drawn PM Arterial Blood pH 7.478 H (Temp corrected) Arterial Blood 29.6 L pCO2 (Temp correct) Arterial Blood 95.7 pO2 (Temp corrected) Arterial Blood 21.5 L HCO3 Arterial Blood -1.2 Base Excess Arterial Blood 97.1 Oxygen Saturation Brian Test ACCEPTAB Arterial Blood Left Radial Gas Puncture Site Arterial 0.3 Blood Carboxyhemo globin Arterial Blood 0.3 Methemoglobin Blood Gas A-a O2 227.8 H Differential Oxyhemoglobin 96.5 Percent Blood Gas 36.7 Temperature Blood Gas 20.0 Respiration Rate Blood Gas Actual 20 Respiration Rate Blood Gas VENT - AC Modality FiO2 50.0 Blood Gas Tidal 500.0 Volume Blood Gas Low 5.0 PEEP Setting Blood Gas Joann SERVIN Critical Value Read Back Blood Gas RDIX Notified Whom Blood Gas 09/11/2018 1:16:56 Notified Time PM Test 09/11/18 13:34 09/11/18 15:24 09/11/18 16:35 09/11/18 18:01 Bedside Glucose 124 120 110 108 Test 09/11/18 18:06 09/11/18 19:53 09/11/18 22:18 09/12/18 00:00 Prothrombin Time 17.3 H Prothrombin Time 1.4 Ratio INR International 1.40 Normalized Ratio Activated 39.9 H Partial Thrombopl ast Time Sodium Level 140 Potassium Level 3.4 L Chloride Level 104 Carbon Dioxide 25 Level Anion Gap 11 Blood Urea 27 H Nitrogen Creatinine 1.55 H Est Glomerular 41 L Filtrat Rate mL/min Glucose Level 139 Lactic Acid Level 2.6 *H Calcium Level 7.1 L Phosphorus Level 3.6 Magnesium Level 1.9 Total Bilirubin 0.4 Direct Bilirubin 0.00 Indirect 0.4 Bilirubin Aspartate Amino 215 H Transf (AST/SGOT) Alanine 233 H Aminotransferase (ALT/SGPT) Alkaline 51 Phosphatase Total Protein 5.2 L Albumin 2.7 L Globulin 2.50 Albumin/Globulin 1.08 Ratio Bedside Glucose 122 126 103 Test 09/12/18 01:57 09/12/18 04:40 09/12/18 06:02 09/12/18 09:32 Bedside Glucose 85 89 84 White Blood Count 7.2 # Red Blood Count 3.32 L Hemoglobin 10.0 L Hematocrit 30.0 L Mean Corpuscular 90.4 Volume Mean Corpuscular 30.1 Hemoglobin Mean Corpuscular 33.3 Hemoglobin Concen t Red Cell 14.2 Distribution Width Platelet Count 97 #L Mean Platelet 11.3 H Volume Immature 0.600 H Granulocytes % Neutrophils % Segmented 42 Neutrophils % (Manual) Band Neutrophils 44 H % (Manual) Lymphocytes % Lymphocytes % 5 L (Manual) Monocytes % Monocytes % 1 (Manual) Eosinophils % Basophils % Metamyelocytes % 8 H (manual) Nucleated Red 0.0 Blood Cells % Immature 0.040 H Granulocytes # Neutrophils # Neutrophils # 3.2 (Manual) Band Neutrophils 3.1 H # Lymphocytes 0.3 L (Manual) Lymphocytes # Monocytes # Monocytes # 0.0 L (Manual) Eosinophils # Basophils # Metamyelocytes # 0.5 H Nucleated Red Blood Cells # Platelet Estimate DECREASED Anisocytosis 1+ Microcytosis 1+ Sodium Level 140 Potassium Level 3.4 L Chloride Level 104 Carbon Dioxide 28 Level Anion Gap 8 Blood Urea 25 H Nitrogen Creatinine 1.58 H Est Glomerular 40 L Filtrat Rate mL/min Glucose Level 96 # Lactic Acid Level 1.9 Calcium Level 7.0 L Magnesium Level 1.8 Total Bilirubin 0.4 Direct Bilirubin 0.00 Indirect 0.4 Bilirubin Aspartate Amino 161 H Transf (AST/SGOT) Alanine 196 H Aminotransferase (ALT/SGPT) Alkaline 49 Phosphatase Total Protein 4.1 #L Albumin 2.2 L Globulin 1.90 Albumin/Globulin 1.15 Ratio Consultation Date/Type/Reason Admit Date/Time Sep 09, 2018 at 16:10 Initial Consult Date 09/10/18 Type of Consult Pulmonary/critical care History of presenting illness; patient is a 63-year-old lady who was brought into the hospital after found unresponsive. Patient underwent CPR and was in V. fib. Patient was successfully resuscitated intubated and transferred to ICU. By the time I saw her, patient is on mechanical ventilation and on hypothermia protocol. Patient also has remained hypotensive and on high-dose pressor support. Past medical history; 1. Hypertension. Medications; reviewed. Patient is currently on Versed 2 mg/h, fentanyl 50 mics per hour, Levophed 24 mics per minute, insulin drip 0.5 units/h, patient also is on hypothermia protocol with dialysis per protocol. Allergies; unknown. Family history, social history, occupational history is not available. Review of system; unable to be obtained. General exam; elderly female, orally intubated, paralyzed and sedated. Currently no distress. Requesting Provider: OZZIE ALVAREZ MD 24 HR Interval Summary Free Text/Dictation Patient's condition remains critical. Patient has been off hypothermia protocol and is awake now able to move left upper extremity spontaneously. Patient however still does not follow any commands. Has remained hemodynamically unst able still requiring low-dose Levophed. General exam; elderly female, awake, orally intubated, currently in no distress. Exam/Review of Systems Vital Signs Vitals Vital Signs Date Temp Pulse Resp B/P (MAP) Pulse Ox O2 O2 Flow FiO2 Time Delivery Rate 09/12/18 89 25 134/60 100 06:30 (84) 09/12/18 Mechanical 06:00 Ventilator 09/12/18 40 04:55 09/12/18 98.9 04:00 09/09/18 15.0 14:50 Intake and Output 09/11/18 09/11/18 09/12/18 1414:59 22:59 06:59 IntakeIntake Total 2147.83 ml 859.91 ml 998.44 ml OutputOutput Total 180 ml 680 ml 500 ml BalanceBalance 1967.83 ml 179.91 ml 498.44 ml Exam H EENT exam; supple neck, no JVD. No lymphadenopathy. Midline trachea. No thyromegaly. Orally intubated. Patient has fair dentition. Pupils are midsize bilaterally. Chest exam; diminished breath sounds bilaterally. S1-S2 audible, no murmurs. Regular rhythm. Abdomen exam; soft, no organomegaly. Bowel sounds audible. Nondistended. Extremity exam; no peripheral edema. Pulses 1+. [employer]OR [employer] exam; is awake and able to move left upper extremity spontaneously. Medications Medications Current Medications Albuterol (Ventolin Hfa) 4 puff Q4H RESP THERAPY INH Last administered on 09/12/18 08:33; Admin Dose 4 PUFF; Start 09/09/18 at 17:00 Albuterol (Ventolin Hfa) 4 puff Q2H RESP THERAPY PRN INH SHORTNESS OF BREATH; Start 09/09/18 at 16:30 Acetaminophen (Tylenol Liquid) 650 mg Q6H PRN NGT PAIN LEVEL 1-3 OR FEVER Last administered on 09/12/18 09:30; Admin Dose 650 MG; Start 09/09/18 at 16:30 Morphine Sulfate (morphine) 2 mg Q4H PRN IV PAIN LEVEL 7-10 Last administered on 09/09/18 20:20; Admin Dose 2 MG; Start 09/09/18 at 16:30 Pantoprazole (Protonix Iv) 40 mg DAILY@06 IV Last administered on 09/12/18 06:03; Admin Dose 40 MG; Start 09/10/18 at 06:00 Piperacillin Sod/ Tazobactam Sod 100 ml @ 200 mls/hr Q8 IVPB Last administered on 09/12/18 06:03; Admin Dose 200 MLS/HR; Start 09/09/18 at 22:00 Midazolam HCl 50 ml @ 1 mls/hr TITRATE IV Last administered on 09/11/18 09:30; Admin Dose 6 MLS/HR; Start 09/09/18 at 18:30 Fentanyl 100 ml @ 2.5 mls/hr TITRATE IV Last administered on 09/11/18 09:00; Admin Dose 10 MLS/HR; Start 09/09/18 at 21:30 Norepinephrine 16 mg/Dextrose 500 ml @ 1.88 mls/hr TITRATE IV Last administered on 09/11/18at 12:02; Admin Dose 37.5 MLS/HR; Start 09/10/18 at 08:00 Potassium Chloride (Potassium Chloride Pwd/Soln) 20 meq PER PROTOCOL PRN PO POTASSIUM REPLACEMENT PROTOCOL; Start 09/10/18 at 09:00 Potassium Chloride (Potassium Chloride Pwd/Soln) 30 meq PER PROTOCOL PRN PO POTASSIUM REPLACEMENT PROTOCOL; Start 09/10/18 at 09:00 Potassium Chloride (Potassium Chloride Pwd/Soln) 40 meq PER PROTOCOL PRN PO POTASSIUM REPLACEMENT PROTOCOL; Start 09/10/18 at 09:00 Eye Lubricant (Artificial Tears Oph) 2 drop Q6H BOTH EYES Last administered on 09/12/18at 06:03; Admin Dose 2 DROP; Start 09/10/18 at 18:00 Aspirin (Aspirin) 300 mg DAILY [place] Last administered on 09/12/18at 09:30; Admin Dose 300 MG; Start 09/11/18 at 09:00 Dextrose/Sodium Chloride 1,000 ml @ 100 mls/hr Q10H IV Last administered on 09/12/18at 09:30; Admin Dose 100 MLS/HR; Start 09/11/18 at 10:00 Insulin Aspart (Novolog Insulin Pen) NOVOLOG *MILD* ALGORI... Q4 SC ; Start 09/12/18 at 05:00 Miscellaneous Information 1 ea NOTE XX ; Start 09/12/18 at 04:30 Glucose (Glutose) 15 gm Q15M PRN PO DECREASED GLUCOSE; Start 09/12/18 at 04:30 Glucose (Glutose) 22.5 gm Q15M PRN PO DECREASED GLUCOSE; Start 09/12/18 at 04:30 Dextrose (D50w Syringe) 25 ml Q15M PRN IV DECREASED GLUCOSE; Start 09/12/18 at 04:30 Dextrose (D50w Syringe) 50 ml Q15M PRN IV DECREASED GLUCOSE; Start 09/12/18 at 04:30 Glucagon (Glucagen) 1 mg Q15M PRN IM DECREASED GLUCOSE; Start 09/12/18 at 04:30 Glucose (Glutose) 15 gm Q15M PRN BUCCAL DECREASED GLUCOSE; Start 09/12/18 at 04:30 ANABELLA LANTIGUA Sep 12, 2018 09:47
[2018-09-12] MEDS: POTASSIUM CHLORIDE 100 ML IVPB SCH ×4 (10:00→18:01)
--- NOTE | 2018-09-12 10:03 | CONS ---
Date/Time of Note Date/Time of Note DATE: 09/12/18 TIME: 09:59 Consult Date/Type/Reason Admit Date/Time Sep 09, 2018 at 16:10 Initial Consult Date 09/10/18 Type of Consultation: cv Requesting Provider: OZZIE ALVAREZ MD Subjective Interventional cardiology follow-up progress note/critical care note Subjective: Case discussed with the staff and rhythm was reviewed. Patient remains in sinus rhythm sinus bradycardia/NSR no VT. d/w multiple physicians Patient has completed hypothermia protocol pt has been hypotensive and on levophed now. Discussed with patient's daughter The old records that they were able to provide was reviewed. Patient appears that has had hypertension and dyslipidemia and has been on lisinopril and Procardia and simvastatin at home. According to the family patient has been very active generally but has had dyspnea on exertion and has been complaint of lower extremity edema lately. 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 pupils are equal. round. NECK: no stridor. CV: RRR. systolic murmur; no gallop or rubs. PULM: no wheezing + rhonchi. GI: SOFT, NT, ND, no rebound or guarding Extremity: trace B/L LE edema. no clubbing. neuro: opens her eyes Psych: calm rectal: deferred CXR 1. Cardiomegaly and mild failure. 2. Superimposed dense right central and mid lung pneumonia, similar in appearance to the prior examination. 3. Recommend advancing nasogastric tube about [address] tip and side port well within the gastric lumen, with re-imaging. echo reviewed Normal left ventricular cavity size. Moderate concentric left ventricular hypertrophy. Severe global left ventricular systolic dysfunction. Ejection fraction is visually estimated at 20 %. Mitral valve leaflets appear mildly thickened. Mild mitral annular calcification. Trace mitral regurgitation. No significant aortic stenosis or insufficiency. Aortic cusps appear mildly calcified. Normal appearance of the tricuspid valve. Estimated peak PA systolic pressure 27 mmHg. There is mild tricuspid regurgitation. Dilated IVC without respiratory collapse, however, patient on ventilator. Objective Vital Signs Date Temp Pulse Resp B/P (MAP) Pulse Ox O2 O2 Flow FiO2 Time Delivery Rate 09/12/18 79 08:00 09/12/18 25 134/60 100 06:30 (84) 09/12/18 Mechanical 06:00 Ventilator 09/12/18 40 04:55 09/12/18 98.9 04:00 09/09/18 15.0 14:50 Intake and Output 09/11/18 09/11/18 09/12/18 1515:00 23:00 07:00 IntakeIntake Total 2083.46 ml 844.66 ml 995.56 ml OutputOutput Total 190 ml 710 ml 450 ml BalanceBalance 1893.46 ml 134.66 ml 545.56 ml Results/Medications Result Diagram: 09/12/18 0440 09/12/18 0440 Results 24 hrs Laboratory Tests Test 09/11/18 10:54 09/11/18 11:46 09/11/18 12:00 09/11/18 12:08 Bedside Glucose 116 102 White Blood Count 4.3 #L Red Blood Count 3.83 L Hemoglobin 11.6 L Hematocrit 33.7 L Mean Corpuscular 88.0 Volume Mean Corpuscular 30.3 Hemoglobin Mean Corpuscular 34.4 Hemoglobin Concen t Red Cell 13.7 Distribution Width Platelet Count 123 L Mean Platelet 11.7 H Volume Immature 3.000 H Granulocytes % Neutrophils % Segmented 16 L Neutrophils % (Manual) Band Neutrophils 40 H % (Manual) Lymphocytes % Lymphocytes % 34 (Manual) Reactive 1 H Lymphocytes % (Manual) Monocytes % Monocytes % 4 (Manual) Eosinophils % Basophils % Basophils % 1 (Manual) Metamyelocytes % 3 H (manual) Myelocytes % 1 H (Manual) Nucleated Red 1 H Blood Cells % Immature 0.130 H Granulocytes # Neutrophils # Neutrophils # 0.8 L (Manual) Band Neutrophils 1.7 H # Lymphocytes 1.4 (Manual) Lymphocytes # Reactive 0.0 Lymphocytes # Monocytes # Monocytes # 0.1 L (Manual) Eosinophils # Basophils # Basophils # 0.0 (Manual) Metamyelocytes # 0.1 H Myelocytes # 0.0 Nucleated Red Blood Cells # Platelet Estimate NORMAL Giant Platelets 28 H Dimorphic Red 1+ Blood Cells Polychromasia 1+ Poikilocytosis 3+ Anisocytosis 1+ Microcytosis 1+ Prothrombin Time 17.9 H Prothrombin Time 1.4 Ratio INR International 1.47 Normalized Ratio Activated 39.7 H Partial Thrombopl ast Time Fibrinogen 697.0 #H Sodium Level 138 Potassium Level 3.6 Chloride Level 107 Carbon Dioxide 24 Level Anion Gap 7 Blood Urea 25 H Nitrogen Creatinine 1.47 H Est Glomerular 43 L Filtrat Rate mL/min Glucose Level 137 Lactic Acid Level 3.1 *H Calcium Level 7.0 L Phosphorus Level 3.0 Magnesium Level 2.0 Total Bilirubin 0.4 Direct Bilirubin 0.00 Indirect 0.4 Bilirubin Aspartate Amino 227 H Transf (AST/SGOT) Alanine 252 H Aminotransferase (ALT/SGPT) Alkaline 49 Phosphatase Total Protein 4.8 L Albumin 2.6 L Globulin 2.20 Albumin/Globulin 1.18 Ratio Amylase Level 119 # Lipase 19 L Blood Gas Blood arterial Specimen Source Arterial Blood 09/11/2018 1:00:24 Date Drawn PM Arterial Blood pH 7.478 H (Temp corrected) Arterial Blood 29.6 L pCO2 (Temp correct) Arterial Blood 95.7 pO2 (Temp corrected) Arterial Blood 21.5 L HCO3 Arterial Blood -1.2 Base Excess Arterial Blood 97.1 Oxygen Saturation Brian Test ACCEPTAB Arterial Blood Left Radial Gas Puncture Site Arterial 0.3 Blood Carboxyhemo globin Arterial Blood 0.3 Methemoglobin Blood Gas A-a O2 227.8 H Differential Oxyhemoglobin 96.5 Percent Blood Gas 36.7 Temperature Blood Gas 20.0 Respiration Rate Blood Gas Actual 20 Respiration Rate Blood Gas VENT - AC Modality FiO2 50.0 Blood Gas Tidal 500.0 Volume Blood Gas Low 5.0 PEEP Setting Blood Gas T DICKENS CN Critical Value Read Back Blood Gas RDIX Notified Whom Blood Gas 09/11/2018 1:16:56 Notified Time PM Test 09/11/18 13:34 09/11/18 15:24 09/11/18 16:35 09/11/18 18:01 Bedside Glucose 124 120 110 108 Test 09/11/18 18:06 09/11/18 19:53 09/11/18 22:18 09/12/18 00:00 Prothrombin Time 17.3 H Prothrombin Time 1.4 Ratio INR International 1.40 Normalized Ratio Activated 39.9 H Partial Thrombopl ast Time Sodium Level 140 Potassium Level 3.4 L Chloride Level 104 Carbon Dioxide 25 Level Anion Gap 11 Blood Urea 27 H Nitrogen Creatinine 1.55 H Est Glomerular 41 L Filtrat Rate mL/min Glucose Level 139 Lactic Acid Level 2.6 *H Calcium Level 7.1 L Phosphorus Level 3.6 Magnesium Level 1.9 Total Bilirubin 0.4 Direct Bilirubin 0.00 Indirect 0.4 Bilirubin Aspartate Amino 215 H Transf (AST/SGOT) Alanine 233 H Aminotransferase (ALT/SGPT) Alkaline 51 Phosphatase Total Protein 5.2 L Albumin 2.7 L Globulin 2.50 Albumin/Globulin 1.08 Ratio Bedside Glucose 122 126 103 Test 09/12/18 01:57 09/12/18 04:40 09/12/18 06:02 09/12/18 09:32 Bedside Glucose 85 89 84 White Blood Count 7.2 # Red Blood Count 3.32 L Hemoglobin 10.0 L Hematocrit 30.0 L Mean Corpuscular 90.4 Volume Mean Corpuscular 30.1 Hemoglobin Mean Corpuscular 33.3 Hemoglobin Concen t Red Cell 14.2 Distribution Width Platelet Count 97 #L Mean Platelet 11.3 H Volume Immature 0.600 H Granulocytes % Neutrophils % Segmented 42 Neutrophils % (Manual) Band Neutrophils 44 H % (Manual) Lymphocytes % Lymphocytes % 5 L (Manual) Monocytes % Monocytes % 1 (Manual) Eosinophils % Basophils % Metamyelocytes % 8 H (manual) Nucleated Red 0.0 Blood Cells % Immature 0.040 H Granulocytes # Neutrophils # Neutrophils # 3.2 (Manual) Band Neutrophils 3.1 H # Lymphocytes 0.3 L (Manual) Lymphocytes # Monocytes # Monocytes # 0.0 L (Manual) Eosinophils # Basophils # Metamyelocytes # 0.5 H Nucleated Red Blood Cells # Platelet Estimate DECREASED Anisocytosis 1+ Microcytosis 1+ Sodium Level 140 Potassium Level 3.4 L Chloride Level 104 Carbon Dioxide 28 Level Anion Gap 8 Blood Urea 25 H Nitrogen Creatinine 1.58 H Est Glomerular 40 L Filtrat Rate mL/min Glucose Level 96 # Lactic Acid Level 1.9 Calcium Level 7.0 L Magnesium Level 1.8 Total Bilirubin 0.4 Direct Bilirubin 0.00 Indirect 0.4 Bilirubin Aspartate Amino 161 H Transf (AST/SGOT) Alanine 196 H Aminotransferase (ALT/SGPT) Alkaline 49 Phosphatase Total Protein 4.1 #L Albumin 2.2 L Globulin 1.90 Albumin/Globulin 1.15 Ratio Medications Current Medications Albuterol (Ventolin Hfa) 4 puff Q4H RESP THERAPY INH Last administered on 09/12/18at 08:33; Admin Dose 4 PUFF; Start 09/09/18 at 17:00 Albuterol (Ventolin Hfa) 4 puff Q2H RESP THERAPY PRN INH SHORTNESS OF BREATH; Start 09/09/18 at 16:30 Acetaminophen (Tylenol Liquid) 650 mg Q6H PRN NGT PAIN LEVEL 1-3 OR FEVER Last administered on 09/12/18 09:30; Admin Dose 650 MG; Start 09/09/18 at 16:30 Morphine Sulfate (morphine) 2 mg Q4H PRN IV PAIN LEVEL 7-10 Last administered on 09/09/18 20:20; Admin Dose 2 MG; Start 09/09/18 at 16:30 Pantoprazole (Protonix Iv) 40 mg DAILY@06 IV Last administered on 09/12/18 06:03; Admin Dose 40 MG; Start 09/10/18 at 06:00 Piperacillin Sod/ Tazobactam Sod 100 ml @ 200 mls/hr Q8 IVPB Last administered on 09/12/18 06:03; Admin Dose 200 MLS/HR; Start 09/09/18 at 22:00 Midazolam HCl 50 ml @ 1 mls/hr TITRATE IV Last administered on 09/11/18 09:30; Admin Dose 6 MLS/HR; Start 09/09/18 at 18:30 Fentanyl 100 ml @ 2.5 mls/hr TITRATE IV Last administered on 09/11/18 09:00; Admin Dose 10 MLS/HR; Start 09/09/18 at 21:30 Norepinephrine 16 mg/Dextrose 500 ml @ 1.88 mls/hr TITRATE IV Last administered on 09/11/18 12:02; Admin Dose 37.5 MLS/HR; Start 09/10/18 at 08:00 Potassium Chloride (Potassium Chloride Pwd/Soln) 20 meq PER PROTOCOL PRN PO POTASSIUM REPLACEMENT PROTOCOL; Start 09/10/18 at 09:00 Potassium Chloride (Potassium Chloride Pwd/Soln) 30 meq PER PROTOCOL PRN PO POTASSIUM REPLACEMENT PROTOCOL; Start 09/10/18 at 09:00 Potassium Chloride (Potassium Chloride Pwd/Soln) 40 meq PER PROTOCOL PRN PO POTASSIUM REPLACEMENT PROTOCOL; Start 09/10/18 at 09:00 Eye Lubricant (Artificial Tears Oph) 2 drop Q6H BOTH EYES Last administered on 09/12/18 06:03; Admin Dose 2 DROP; Start 09/10/18 at 18:00 Aspirin (Aspirin) 300 mg DAILY [place] Last administered on 09/12/18 09:30; Admin Dose 300 MG; Start 09/11/18 at 09:00 Dextrose/Sodium Chloride 1,000 ml @ 100 mls/hr Q10H IV Last administered on 09/12/18at 09:30; Admin Dose 100 MLS/HR; Start 09/11/18 at 10:00 Insulin Aspart (Novolog Insulin Pen) NOVOLOG *MILD* ALGORI... Q4 SC ; Start 09/12/18 at 05:00 Miscellaneous Information 1 ea NOTE XX ; Start 09/12/18 at 04:30 Glucose (Glutose) 15 gm Q15M PRN PO DECREASED GLUCOSE; Start 09/12/18 at 04:30 Glucose (Glutose) 22.5 gm Q15M PRN PO DECREASED GLUCOSE; Start 09/12/18 at 04:30 Dextrose (D50w Syringe) 25 ml Q15M PRN IV DECREASED GLUCOSE; Start 09/12/18 at 04:30 Dextrose (D50w Syringe) 50 ml Q15M PRN IV DECREASED GLUCOSE; Start 09/12/18 at 04:30 Glucagon (Glucagen) 1 mg Q15M PRN IM DECREASED GLUCOSE; Start 09/12/18 at 04:30 Glucose (Glutose) 15 gm Q15M PRN BUCCAL DECREASED GLUCOSE; Start 09/12/18 at 04:30 Potassium Chloride 100 ml @ 50 mls/hr Q2H IVPB ; Start 09/12/18 at 10:00; Stop 09/12/18 at 13:59 Assessment/Plan Chief Complaint/Hosp Course 1. Cardiopulmonary arrest 2. Hypoxemic hypercapnic respiratory failure status post intubation on the vent 3. Right lung infiltrate consistent with pneumonia possible aspiration pneumonia 4. V. tach arrest: in association with severe hypokalemia 5. Encephalopathy 6. Severe lactic acidosis 7. Hyperglycemia 8. Transaminitis 9. Severe hypokalemia 10. Incomplete data 11. NSTEMI 12. Cardiomyopathy 13. JULISSA Recommendations: Continue with vent support. will give a dose of lasix today . STOP IV fluid. start tube feeding correct the potassium and Mg to keep K more than 4, magnesium more than 2 Antibiotic management will be deferred to internal medicine team Hypothermia protocol to be completed Echocardiogram was reviewed. Electrolytes will be repeated. will try to contact pt PCP and get more records cont ICU care. full code for now More than 38 minutes of critical care time was for management treatment is critically patient excluding any procedures Thank you for his referral. We will continue to follow along with you DEMETRIUS MCCRAY MD [facility] DEMETRIUS MCCRAY MD Sep 12, 2018 10:03
--- NOTE | 2018-09-12 10:08 | QN ---
Documentation Comment Pt was seen and examined renal consult dictated RICHARD GIRARD MD Sep 12, 2018 10:08
--- NOTE | 2018-09-12 11:22 | CONS ---
DATE OF ADMISSION: 09/09/2018 DATE OF CONSULTATION: TYPE OF CONSULTATION: Renal. REASON FOR CONSULTATION: Acute renal failure. HISTORY OF PRESENT ILLNESS: This is a 63-year-old female, history is obtained from the family as the patient is currently intubated and from the chart. A 63-year-old female with a past medical history of hypertension, hyperlipidemia, who basically was presented to the ED and full cardiac arrest. According to the daughter, the patient spoke to the daughter on that day in the morning, she was doing fine except that she was having some episodes of vomiting. She was found on the sidewalk unconscious. She was found in V-fib arrest and ACLS protocol was performed. She received amnio, 4 rounds of epinephrine, bicarbonate, Narcan. She had v fib arrest but since she was unresponsive, hypothermia was initiated. On admission, blood pressure was 93/60, afebrile. Labs showed sodium of 142, potassium of 2.1, BUN of 12, creatinine of 0.89 and today labs showed sodium 140, potassium 3.4, chloride 104, bicarbonate 28, BUN of 25 and creatinine trending up to 1.58 and renal was consulted. Since admission, first day patient had input of 1.2 liters, second day 4.1 liter and third day is 4.0 liter. Urine output has been decent-50 to 60 mL an hour. Patient also was empirically given a dose of vancomycin and started on IV Zosyn and currently is on D5 half NS at 100 mL an hour. Chest x-ray shows right-sided infiltrate. The patient also received doses of Lasix 20 mg x2 for 2 days. PAST MEDICAL HISTORY: 1. Hypertension. 2. Hyperlipidemia. ALLERGIES: None. PAST SURGICAL HISTORY: According to the daughter is a knee surgery. MEDICATIONS: Taking at home were: 1. Lisinopril 40. 2. Simvastatin 20. 3. Hydrochlorothiazide 25. SOCIAL HISTORY: No history of smoking, alcohol or any drug use. Lives by herself. FAMILY HISTORY: Significant for liver disease in the brother and a history of cancer in the family members. REVIEW OF SYSTEMS: Unobtainable as the patient is intubated. PHYSICAL EXAMINATION: VITAL SIGNS: Currently blood pressure 134/60, respirations 25, pulse 89. GENERAL: Patient is able to open eyes, moving extremities, trying to follow some commands, currently on Levophed. NECK: Supple. HEART: Regular rate and rhythm. LUNGS: Decreased breath sounds bilaterally, especially on the right. ABDOMEN: Soft, nontender, nondistended, positive normoactive bowel sounds. EXTREMITIES: No clubbing, cyanosis, or edema. NEUROLOGIC: The patient is opening eyes, trying to follow some commands. LABORATORY DATA: Sodium of 140, potassium 3.4, chloride 104, bicarbonate 28, BUN of 25, creatinine 1.58, calcium 7.0, AST 161, ALT 196, and troponin was 0.014, went up to 2.740, currently 1.40. CT of the head was negative. A C- spine CT shows no acute fracture of the C-spine. Chest x-ray shows continued worsening extensive right lung infiltrates. CVPs are 15 to 16. ASSESSMENT AND PLAN: This is a 63-year-old female who presented with: 1. Acute renal failure. Also noted the patient with a creatinine was 0.89 on 09/09/2018. Since then, the patient was in cardiogenic shock, received CPR, was in V-fib arrest. Patient was also started on vancomycin/Zosyn and currently CVPs are 15 to 16. 2. Hypokalemia could be secondary to vomiting on admission; however, patient was also given diuretics currently. 3. V-fibrillation cardiac arrest with EF of 20%. 4. Shock secondary to cardiogenic likely/aspiration pneumonia. 5. Acute hypoxic respiratory failure, intubated. 6. Transaminitis. 7. Hypertension. PLAN: 1. At this period of time, the patient is admitted to ICU. 2. Since the patient's CVP is really high and x-ray shows right-sided infiltrate, EF is only 20%. Would recommend cw diuretics. Patient has been at 8 liters positive since admission. 3. Agree with starting the patient on Lasix 20 b.i.d. 4. Monitor urine output. We will also check for urine electrolytes. 5. We will renally dose Zosyn. Hold off on nephrotoxic agents. 6. Keep systolic blood pressure greater than 100. 7. We will continue to monitor the patient. Spoke to the family at bedside. Rest of the treatment will depend on the patient's hospitalization course. Dictated By: RICHARD ALMANZA/AARON Conf#: [id number] DID#: [id number] CC: OZZIE ALVAREZ MD;*EndCC* MTDD
--- NOTE | 2018-09-12 11:55 | NUR ---
Pt. noted to be in afib with a controlled rate of < [address] Graham notified.
[2018-09-12] MEDS: FUROSEMIDE 20 MG INJ IV SCH ×2 (12:00→18:01)
[2018-09-12] MEDS ORDERED: MAGNESIUM SULFATE 2 GM/50 ML 50 ML IVPB ONE (12:00)
--- NOTE | 2018-09-12 12:19 | NUR ---
SS NOTE: F/U F/U WITH PT'S DTR, ALCIDES WHO REPORTED THAT SHE WAS NOT ABLE TO LOCATE PT'S AHCD. STATED THAT SHE SPOKE WITH HER SISTER AND HER AUNT (PT'S SISTER) AND THEY ALL AGREED TO WORK TOGETHER TO MAKE DECISIONS FOR PT. DTR STATED THAT FAMILY AGREES WITH THE TREATMENT PLANS FOR PT. AT THIS TIME THEY ARE HAPPY TO SEE SOME IMPROVEMENTS IN PT. SW PROVIDED EMOTIONAL SUPPORT. ENCOURAGED DTR TO DISCUSS ABOUT AHCD AND PT'S WISHES WHEN PT IS MUCH BETTER AND ABLE TO EXPRESS HER WISHES. SW WILL REMAIN AVAILABLE.
--- NOTE | 2018-09-12 12:49 | NUR ---
SS NOTE: CONSULT SW WAS INFORMED THAT PT'S DTR, MARBELLA HAD QUESTIONS AND WANTED TO MEET WITH SW. SW MET WITH FAMILY AT PT'S BEDSIDE. PT'S 2 DTRS AND SISTER PRESENT. DTRMARBELLA INQUIRED WHERE PT WAS PICKED UP AND WHO HAD CALLED. DTR, ALCIDES EXPLAINED THAT PT WAS PICKED UP A[place]OSS [place] [address] FROM HER RESIDENCE. FAMILY REQUESTED TO MEET WITH MD TO DISCUSS PT'S CONDITION AND PLAN OF CARE. IVAN DISCUSSED WITH DR. ALVAREZ AND ARRANGED A CONFERENCE FOR TOMORROW AT 1400. FAMILY ALSO INFORMED. SW WILL REMAIN AVAILABLE.
--- NOTE | 2018-09-12 15:35 | NUR ---
SS NOTE: F/U PT'S FAMILY STATED THAT PT MIGHT HAVE A COPY OF HER AHCD AT HER DOCTOR'S OFFICE. IVAN CALLED DR. BATISTA'S OFFICE AT [facility] . CALL WAS TRANSFERRED TO THEIR MED. REC. AND IVAN SPOKE WITH ALVARO WHO REVIEWED PT'S RECORDS AND STATED THAT PT DOES NOT HAVE AHCD IN HER MEDICAL RECORDS IN THEIR OFFICE. IVAN INFORMED FAMILY. FAMILY INQUIRED HOW THEY CAN GO ABOUT TO GETTING AHCD DONE. IVAN EXPLAINED THAT PT WOULD NEED TO BE A/A/O X4 TO EXECUTE AN AHCD AND IT WOULD NEED TO BE WITNESSED OR NOTARIZED. FAMILY VERBALIZED UNDERSTANDING. SW WILL REMAIN AVAILABLE.
[2018-09-12] MEDS: POTASSIUM CHLORIDE 20 MEQ POWDER FOR ORAL SOLN PO PRN (16:13)
[2018-09-13] VITALS (35 sets, daily range): BP systolic 100–190; BP diastolic 55–100; PULSE 63–107; RESP 19–27
[2018-09-13] MEDS: INSULIN ASPART [NOVOLOG] 3 ML PEN SC SCH ×6 (01:00→21:00)
[2018-09-13] MEDS ORDERED: ACCU-CHEK XX SCH (02:00)
[2018-09-13] MEDS: ALBUTEROL HFA 8 GM INHALER INH SCH ×4 (02:00→20:32)
[2018-09-13] MEDS: PIPER-TAZO 3.375 GM IV (PMX) 100 ML IVPB SCH ×3 (05:33→21:33)
[2018-09-13] MEDS: PANTOPRAZOLE 40 MG INJ IV SCH (05:33)
[2018-09-13] MEDS: FUROSEMIDE 20 MG INJ IV SCH (05:33)
[2018-09-13] MEDS: POTASSIUM CHLORIDE 20 MEQ POWDER FOR ORAL SOLN PO PRN (06:32)
--- NOTE | 2018-09-13 08:45 | PN ---
Date/Time of Note Date/Time of Note DATE: 09/13/18 TIME: 08:45 Assessment/Plan VTE Prophylaxis Risk score (from Ns)>0 risk: 11 SCD applied (from Ns): Yes Pharmacological prophylaxis: heparin Lines/Catheters IV Catheter Type (from Nrsg): Central Line Central line still needed: Yes Urinary Cath still in place: Yes Reason Cath still needed: skin wounds contaminated by urine Assessment/Plan Assessment/Plan 1. Vfib Cardiac arrest with ROSC s/p hypothermia protocol - Cardiology on board and appreciate consultation. Will continue current treatment with goal K >4 and Mg >2 - After being found down in Vfib arrest, patient underwent ACLS with 4 rounds of epi, Amiodarone x1, bicarb with ROSC. Most likely secondary to severe hypokalemia given found with K 2.1 at time of admission - ECHO reviewed and patient with poor EF 20%. Will need to reassess when condition improves 2. Septic shock secondary to aspiration pneumonia - CXR results noted and still with patchy right infiltrate - Nebs PRN - Broad spectrum antibiotics on board - Lactic acid normalized 3. Acute hypoxic respiratory failure on mechanical ventilation - Pulmonology on board for ventilator management and appreciate consultation. - Patient agitated and weak this am so not safe to wean at this time. Will try again tomorrow am 4. Transaminitis- improving - most likely secondary to hypoperfusion - trending down 5. HTN 6. Hypokalemia- improving - will continue replacing with goal >4 7. JULISSA- stabilizing - Nephrology consultation appreciated. continue on lasix and off IVF 8. Disposition - Patient started on propofol due to agitation. Patient was too weak/agitated for CPAP trial today. Will attempt SBT in the am - continue monitoring in ICU >35 minutes of critical care time spent with patient and family at bedside Result Diagram: 09/13/18 0400 09/13/18 0400 Results 24hrs Laboratory Tests Test 09/12/18 09:32 09/12/18 11:11 09/12/18 11:20 09/12/18 13:42 Bedside Glucose 84 85 Creatine Kinase 1508 #H Urine Random Sodium 29 L Test 09/12/18 15:18 09/12/18 16:52 09/12/18 21:02 09/12/18 22:12 Sodium Level 138 Potassium Level 3.4 L 3.8 Chloride Level 105 Carbon Dioxide Level 28 Anion Gap 5 Blood Urea Nitrogen 26 H Creatinine 1.40 H Est Glomerular 46 L Filtrat Rate mL/min Glucose Level 93 Calcium Level 7.8 L Magnesium Level 2.5 Bedside Glucose 98 96 Test 09/13/18 00:49 09/13/18 04:00 09/13/18 05:33 Bedside Glucose 103 109 White Blood Count 8.0 Red Blood Count 2.93 L Hemoglobin 8.9 L Hematocrit 26.8 L Mean Corpuscular 91.5 Volume Mean Corpuscular 30.4 Hemoglobin Mean Corpuscular 33.2 Hemoglobin Concent Red Cell 14.3 Distribution Width Platelet Count 81 L Mean Platelet Volume 12.2 H Immature 0.600 H Granulocytes % Neutrophils % Segmented 58 Neutrophils % (Manual) Band Neutrophils % 34 H (Manual) Lymphocytes % Lymphocytes % 7 L (Manual) Monocytes % Monocytes % (Manual) 1 Eosinophils % Basophils % Nucleated Red Blood 0.0 Cells % Immature 0.050 H Granulocytes # Neutrophils # Neutrophils # 4.9 (Manual) Band Neutrophils # 2.7 H Lymphocytes (Manual) 0.5 L Lymphocytes # Monocytes # Monocytes # (Manual) 0.0 L Eosinophils # Basophils # Nucleated Red Blood Cells # Platelet Estimate DECREASED Sodium Level 139 Potassium Level 3.4 L Chloride Level 106 Carbon Dioxide Level 27 Anion Gap 6 Blood Urea Nitrogen 29 H Creatinine 1.44 H Est Glomerular 44 L Filtrat Rate mL/min Glucose Level 103 Calcium Level 8.1 L Magnesium Level 2.4 Total Bilirubin 0.5 Direct Bilirubin 0.00 Indirect Bilirubin 0.5 Aspartate Amino 144 H Transf (AST/SGOT) Alanine 148 H Aminotransferase (AL T/SGPT) Alkaline Phosphatase 88 # Total Protein 5.1 #L Albumin 2.7 L Globulin 2.40 Albumin/Globulin 1.12 Ratio Subjective 24 Hr Interval Summary Free Text/Dictation Patient following commands this am but very agitated and not ready to be weaned off vent. Family discussion held and all questions addressed. Exam/Review of Systems Vital Signs Vitals Vital Signs Date Temp Pulse Resp B/P (MAP) Pulse Ox O2 O2 Flow FiO2 Time Delivery Rate 09/13/18 96 21 143/69 98 Mechanical 06:00 (93) Ventilator 09/13/18 40 05:38 09/13/18 98.4 04:00 09/09/18 15.0 14:50 Intake and Output 09/12/18 09/12/1819 1414:59 22:59 06:59 IntakeIntake Total 697.50 ml 530 ml 430 ml OutputOutput Total 735 ml 1180 ml 330 ml BalanceBalance -37.50 ml -650 ml 100 ml Exam General: Remains intubated and awake. opening eyes and following some commands Neck: Supple with full range of motion Lungs: Diminished with coarse breath sounds. no wheezing appreciated Heart: Normal S1-S2, Regular rate and rhythm. no murmurs Abdomen: Soft , nontender to palpation, nondistended, No guarding no rebound tenderness Extremities: Normal to inspection, no edema no cyanosis Neurologic: pupils reactive, following commands. Medications Medications Current Medications Albuterol (Ventolin Hfa) 4 puff Q2H RESP THERAPY PRN INH SHORTNESS OF BREATH; Start 09/09/18 at 16:30 Acetaminophen (Tylenol Liquid) 650 mg Q6H PRN NGT PAIN LEVEL 1-3 OR FEVER Last administered on 09/12/18 09:30; Admin Dose 650 MG; Start 09/09/18 at 16:30 Morphine Sulfate (morphine) 2 mg Q4H PRN IV PAIN LEVEL 7-10 Last administered on 09/09/18 20:20; Admin Dose 2 MG; Start 09/09/18 at 16:30 Pantoprazole (Protonix Iv) 40 mg DAILY@06 IV Last administered on 09/13/18 05:33; Admin Dose 40 MG; Start 09/10/18 at 06:00 Piperacillin Sod/ Tazobactam Sod 100 ml @ 200 mls/hr Q8 IVPB Last administered on 09/13/18 05:33; Admin Dose 200 MLS/HR; Start 09/09/18 at 22:00 Midazolam HCl 50 ml @ 1 mls/hr TITRATE IV Last administered on 09/11/18 09:30; Admin Dose 6 MLS/HR; Start 09/09/18 at 18:30 Fentanyl 100 ml @ 2.5 mls/hr TITRATE IV Last administered on 09/11/18 09:00; Admin Dose 10 MLS/HR; Start 09/09/18 at 21:30 Norepinephrine 16 mg/Dextrose 500 ml @ 1.88 mls/hr TITRATE IV Last administered on 09/11/18 12:02; Admin Dose 37.5 MLS/HR; Start 09/10/18 at 08:00 Potassium Chloride (Potassium Chloride Pwd/Soln) 20 meq PER PROTOCOL PRN PO POTASSIUM REPLACEMENT PROTOCOL Last administered on 09/12/18at 16:13; Admin Dose 20 MEQ; Start 09/10/18 at 09:00 Potassium Chloride (Potassium Chloride Pwd/Soln) 30 meq PER PROTOCOL PRN PO POTASSIUM REPLACEMENT PROTOCOL Last administered on 09/13/18at 06:32; Admin Dose 30 MEQ; Start 09/10/18 at 09:00 Potassium Chloride (Potassium Chloride Pwd/Soln) 40 meq PER PROTOCOL PRN PO POTASSIUM REPLACEMENT PROTOCOL; Start 09/10/18 at 09:00 Aspirin (Aspirin) 300 mg DAILY PA Last administered on 09/12/18at 09:30; Admin Dose 300 MG; Start 09/11/18 at 09:00 Insulin Aspart (Novolog Insulin Pen) NOVOLOG *MILD* ALGORI... Q4 SC ; Start 09/12/18 at 05:00 Miscellaneous Information 1 ea NOTE XX ; Start 09/12/18 at 04:30 Glucose (Glutose) 15 gm Q15M PRN PO DECREASED GLUCOSE; Start 09/12/18 at 04:30 Glucose (Glutose) 22.5 gm Q15M PRN PO DECREASED GLUCOSE; Start 09/12/18 at 04:30 Dextrose (D50w Syringe) 25 ml Q15M PRN IV DECREASED GLUCOSE; Start 09/12/18 at 04:30 Dextrose (D50w Syringe) 50 ml Q15M PRN IV DECREASED GLUCOSE; Start 09/12/18 at 04:30 Glucagon (Glucagen) 1 mg Q15M PRN IM DECREASED GLUCOSE; Start 09/12/18 at 04:30 Glucose (Glutose) 15 gm Q15M PRN BUCCAL DECREASED GLUCOSE; Start 09/12/18 at 04:30 Albuterol (Ventolin Hfa) 4 puff Q6H RESP THERAPY INH Last administered on 09/13/18at 08:19; Admin Dose 4 PUFF; Start 09/12/18 at 20:00 OZZIE ALVAREZ MD Sep 13, 2018 08:45
--- NOTE | 2018-09-13 09:04 | CONS ---
Date/Time of Note Date/Time of Note DATE: 09/13/18 TIME: 09:01 Assessment/Plan Assessment/Plan Assessment/Plan Chest x-ray showing persistent extensive right-sided infiltrate. Ventilator setting; AC of 20, tidal volume 500, PEEP of 5, 40% FiO2. Assessment and recommendations; 1. Patient admitted cardiac arrest with V. fib likely due to severe hypokalemia status post successful CPR. 2. Status post hypothermia protocol with preserved mental function. 3. Extensive right-sided pneumonia, likely aspiration. Patient currently on appropriate antimicrobial regimen. 4. Mild elevation of troponin, likely from demand ischemia. Possibly from CPR as well. 5. Acute renal injury with slight increase in serum creatinine. Patient however maintaining adequate urine output. 6. Anemia and severe thrombocytopenia. Continue current supportive care. Decrease assist control rate of 16. The patient currently is too weak to undergo CPAP trial. We will obtain follow-up chest x-ray 24 hours. I did have a detailed discussion with the patient's daughters in the room and answered all their questions. 35 minutes of critical care time was spent evaluating the patient. Result Diagram: 09/13/18 0400 09/13/18 0400 Results 24hrs Laboratory Tests Test 09/12/18 09:32 09/12/18 11:11 09/12/18 11:20 09/12/18 13:42 Bedside Glucose 84 85 Creatine Kinase 1508 #H Urine Random Sodium 29 L Test 09/12/18 15:18 09/12/18 16:52 09/12/18 21:02 09/12/18 22:12 Sodium Level 138 Potassium Level 3.4 L 3.8 Chloride Level 105 Carbon Dioxide Level 28 Anion Gap 5 Blood Urea Nitrogen 26 H Creatinine 1.40 H Est Glomerular 46 L Filtrat Rate mL/min Glucose Level 93 Calcium Level 7.8 L Magnesium Level 2.5 Bedside Glucose 98 96 Test 09/13/18 00:49 09/13/18 04:00 09/13/18 05:33 Bedside Glucose 103 109 White Blood Count 8.0 Red Blood Count 2.93 L Hemoglobin 8.9 L Hematocrit 26.8 L Mean Corpuscular 91.5 Volume Mean Corpuscular 30.4 Hemoglobin Mean Corpuscular 33.2 Hemoglobin Concent Red Cell 14.3 Distribution Width Platelet Count 81 L Mean Platelet Volume 12.2 H Immature 0.600 H Granulocytes % Neutrophils % Segmented 58 Neutrophils % (Manual) Band Neutrophils % 34 H (Manual) Lymphocytes % Lymphocytes % 7 L (Manual) Monocytes % Monocytes % (Manual) 1 Eosinophils % Basophils % Nucleated Red Blood 0.0 Cells % Immature 0.050 H Granulocytes # Neutrophils # Neutrophils # 4.9 (Manual) Band Neutrophils # 2.7 H Lymphocytes (Manual) 0.5 L Lymphocytes # Monocytes # Monocytes # (Manual) 0.0 L Eosinophils # Basophils # Nucleated Red Blood Cells # Platelet Estimate DECREASED Sodium Level 139 Potassium Level 3.4 L Chloride Level 106 Carbon Dioxide Level 27 Anion Gap 6 Blood Urea Nitrogen 29 H Creatinine 1.44 H Est Glomerular 44 L Filtrat Rate mL/min Glucose Level 103 Calcium Level 8.1 L Magnesium Level 2.4 Total Bilirubin 0.5 Direct Bilirubin 0.00 Indirect Bilirubin 0.5 Aspartate Amino 144 H Transf (AST/SGOT) Alanine 148 H Aminotransferase (AL T/SGPT) Alkaline Phosphatase 88 # Total Protein 5.1 #L Albumin 2.7 L Globulin 2.40 Albumin/Globulin 1.12 Ratio Consultation Date/Type/Reason Admit Date/Time Sep 09, 2018 at 16:10 Initial Consult Date 09/10/18 Type of Consult Pulmonary/critical care History of presenting illness; patient is a 63-year-old lady who was brought into the hospital after found unresponsive. Patient underwent CPR and was in V. fib. Patient was successfully resuscitated intubated and transferred to ICU. By the time I saw her, patient is on mechanical ventilation and on hypothermia protocol. Patient also has remained hypotensive and on high-dose pressor support. Past medical history; 1. Hypertension. Medications; reviewed. Patient is currently on Versed 2 mg/h, fentanyl 50 mics per hour, Levophed 24 mics per minute, insulin drip 0.5 units/h, patient also is on hypothermia protocol with dialysis per protocol. Allergies; unknown. Family history, social history, occupational history is not available. Review of system; unable to be obtained. General exam; elderly female, orally intubated, paralyzed and sedated. Currently no distress. Requesting Provider: OZZIE ALVAREZ MD 24 HR Interval Summary Free Text/Dictation Patient's condition remains critical but stable. Patient has shown remarkable mental status recovery. Has remained hemodynamically stable. General exam; elderly female, orally intubated, awake and alert. Following simple commands. Currently in no distress. Exam/Review of Systems Vital Signs Vitals Vital Signs Date Temp Pulse Resp B/P (MAP) Pulse Ox O2 O2 Flow FiO2 Time Delivery Rate 09/13/18 96 21 143/69 98 Mechanical 06:00 (93) Ventilator 09/13/18 40 05:38 09/13/18 98.4 04:00 09/09/18 15.0 14:50 Intake and Output 09/12/18 09/12/18 09/13/18 1515:00 23:00 07:00 IntakeIntake Total 616.25 ml 540 ml 390 ml OutputOutput Total 860 ml 1105 ml 280 ml BalanceBalance -243.75 ml -565 ml 110 ml Exam HEENT exam; supple neck, no JVD. No lymphadenopathy. Midline trachea. No thyromegaly. Patient has fair dentition. Pupils are midsize and reactive to light. Patient has fair dentition. Orally intubated. Nasogastric tube in place. Chest exam; diminished but clear breath sounds. S1-S2 audible, no murmurs. Regular rhythm. Abdomen exam; soft, no organomegaly. Bowel sounds audible. Nontender. Nondistended. Extremity exam; no peripheral edema or clubbing. Pulses 1+. [employer] exam; she is awake follows simple commands moves all extremities but still exhibiting significant generalized weakness. Medications Medications Current Medications Albuterol (Ventolin Hfa) 4 puff Q2H RESP THERAPY PRN INH SHORTNESS OF BREATH; Start 09/09/18 at 16:30 Acetaminophen (Tylenol Liquid) 650 mg Q6H PRN NGT PAIN LEVEL 1-3 OR FEVER Last administered on 09/12/18at 09:30; Admin Dose 650 MG; Start 09/09/18 at 16:30 Morphine Sulfate (morphine) 2 mg Q4H PRN IV PAIN LEVEL 7-10 Last administered on 09/09/18at 20:20; Admin Dose 2 MG; Start 09/09/18 at 16:30 Pantoprazole (Protonix Iv) 40 mg DAILY@06 IV Last administered on 09/13/18at 05:33; Admin Dose 40 MG; Start 09/10/18 at 06:00 Piperacillin Sod/ Tazobactam Sod 100 ml @ 200 mls/hr Q8 IVPB Last administered on 09/13/18at 05:33; Admin Dose 200 MLS/HR; Start 09/09/18 at 22:00 Midazolam HCl 50 ml @ 1 mls/hr TITRATE IV Last administered on 09/11/18at 09:30; Admin Dose 6 MLS/HR; Start 09/09/18 at 18:30 Fentanyl 100 ml @ 2.5 mls/hr TITRATE IV Last administered on 09/11/18at 09:00; Admin Dose 10 MLS/HR; Start 09/09/18 at 21:30 Norepinephrine 16 mg/Dextrose 500 ml @ 1.88 mls/hr TITRATE IV Last administered on 09/11/18at 12:02; Admin Dose 37.5 MLS/HR; Start 09/10/18 at 08:00 Potassium Chloride (Potassium Chloride Pwd/Soln) 20 meq PER PROTOCOL PRN PO POTASSIUM REPLACEMENT PROTOCOL Last administered on 09/12/18at 16:13; Admin Dose 20 MEQ; Start 09/10/18 at 09:00 Potassium Chloride (Potassium Chloride Pwd/Soln) 30 meq PER PROTOCOL PRN PO POTASSIUM REPLACEMENT PROTOCOL Last administered on 09/13/18at 06:32; Admin Dose 30 MEQ; Start 09/10/18 at 09:00 Potassium Chloride (Potassium Chloride Pwd/Soln) 40 meq PER PROTOCOL PRN PO POTASSIUM REPLACEMENT PROTOCOL; Start 09/10/18 at 09:00 Aspirin (Aspirin) 300 mg DAILY ID Last administered on 09/12/18at 09:30; Admin Dose 300 MG; Start 09/11/18 at 09:00 Insulin Aspart (Novolog Insulin Pen) NOVOLOG *MILD* ALGORI... Q4 SC ; Start 09/12/18 at 05:00 Miscellaneous Information 1 ea NOTE XX ; Start 09/12/18 at 04:30 Glucose (Glutose) 15 gm Q15M PRN PO DECREASED GLUCOSE; Start 09/12/18 at 04:30 Glucose (Glutose) 22.5 gm Q15M PRN PO DECREASED GLUCOSE; Start 09/12/18 at 04:30 Dextrose (D50w Syringe) 25 ml Q15M PRN IV DECREASED GLUCOSE; Start 09/12/18 at 04:30 Dextrose (D50w Syringe) 50 ml Q15M PRN IV DECREASED GLUCOSE; Start 09/12/18 at 04:30 Glucagon (Glucagen) 1 mg Q15M PRN IM DECREASED GLUCOSE; Start 09/12/18 at 04:30 Glucose (Glutose) 15 gm Q15M PRN BUCCAL DECREASED GLUCOSE; Start 09/12/18 at 04:30 Albuterol (Ventolin Hfa) 4 puff Q6H RESP THERAPY INH Last administered on 09/13/18at 08:19; Admin Dose 4 PUFF; Start 09/12/18 at 20:00 ANABELLA LANTIGUA Sep 13, 2018 09:04
[2018-09-13] MEDS: morphine 2 MG INJ IV PRN (10:11)
[2018-09-13] MEDS: ASPIRIN 300 MG SUPP PR SCH (10:11)
[2018-09-13] MEDS ORDERED: LORAZEPAM 4 MG/ML VIAL IV PRN (11:00)
[2018-09-13] MEDS: PROPOFOL 100 ML IV SCH ×3 (11:06→23:04)
[2018-09-13] MEDS: POTASSIUM CHLORIDE 100 ML IVPB SCH ×2 (11:06→13:02)
--- NOTE | 2018-09-13 13:36 | CONS ---
Date/Time of Note Date/Time of Note DATE: 09/13/18 TIME: 13:34 Assessment/Plan Assessment/Plan Hospital Course 63-year-old female found down in the street unconscious. Paramedics called ACLS was begun, V. fib cardiac arrest. Patient transported [facility] and shock started off on hypothermia protocol. Patient is currently being rewarmed, 5 hours left. There is no information as to how long patient was down. At this time there is an incomplete database. Assessment/Plan Conversation with patient's daughter at the bedside. Apparently there is one other daughter who is a decision maker also. Family are encouraged that she does some movement which seems to be purposeful to them. I explained to them that my involvement be primarily supportive for them. I asked them to focus on primarily her neurological condition when she is off sedation primarily she does purposeful movements, explained in detail what those movements could be. Family states they had never discussed what patient would want in the event that she would have some catastrophic illness. I did speak to family members about milestones, extubation or patient not improving enough to be extubated short- term and long-term goals. We will continue to support family did emphasize the fact that Dr. Rm is an extremely good communicator and all medical questions will be directed to her. Result Diagram: 09/13/18 0400 09/13/18 0400 Results 24hrs Laboratory Tests Test 09/12/18 13:42 09/12/18 15:18 09/12/18 16:52 09/12/18 21:02 Bedside Glucose 85 98 96 Sodium Level 138 Potassium Level 3.4 L Chloride Level 105 Carbon Dioxide Level 28 Anion Gap 5 Blood Urea Nitrogen 26 H Creatinine 1.40 H Est Glomerular 46 L Filtrat Rate mL/min Glucose Level 93 Calcium Level 7.8 L Magnesium Level 2.5 Test 09/12/18 22:12 09/13/18 00:49 09/13/18 04:00 09/13/18 05:33 Potassium Level 3.8 3.4 L Bedside Glucose 103 109 White Blood Count 8.0 Red Blood Count 2.93 L Hemoglobin 8.9 L Hematocrit 26.8 L Mean Corpuscular 91.5 Volume Mean Corpuscular 30.4 Hemoglobin Mean Corpuscular 33.2 Hemoglobin Concent Red Cell 14.3 Distribution Width Platelet Count 81 L Mean Platelet Volume 12.2 H Immature 0.600 H Granulocytes % Neutrophils % Segmented 58 Neutrophils % (Manual) Band Neutrophils % 34 H (Manual) Lymphocytes % Lymphocytes % 7 L (Manual) Monocytes % Monocytes % (Manual) 1 Eosinophils % Basophils % Nucleated Red Blood 0.0 Cells % Immature 0.050 H Granulocytes # Neutrophils # Neutrophils # 4.9 (Manual) Band Neutrophils # 2.7 H Lymphocytes (Manual) 0.5 L Lymphocytes # Monocytes # Monocytes # (Manual) 0.0 L Eosinophils # Basophils # Nucleated Red Blood Cells # Platelet Estimate DECREASED Sodium Level 139 Chloride Level 106 Carbon Dioxide Level 27 Anion Gap 6 Blood Urea Nitrogen 29 H Creatinine 1.44 H Est Glomerular 44 L Filtrat Rate mL/min Glucose Level 103 Calcium Level 8.1 L Magnesium Level 2.4 Total Bilirubin 0.5 Direct Bilirubin 0.00 Indirect Bilirubin 0.5 Aspartate Amino 144 H Transf (AST/SGOT) Alanine 148 H Aminotransferase (AL T/SGPT) Alkaline Phosphatase 88 # Total Protein 5.1 #L Albumin 2.7 L Globulin 2.40 Albumin/Globulin 1.12 Ratio Test 09/13/18 10:14 09/13/18 13:04 Bedside Glucose 119 126 Consultation Date/Type/Reason Admit Date/Time Sep 09, 2018 at 16:10 Past Medical History Medical History: hypertension Medications Current Medications Albuterol (Ventolin Hfa) 4 puff Q2H RESP THERAPY PRN INH SHORTNESS OF BREATH; Start 09/09/18 at 16:30 Acetaminophen (Tylenol Liquid) 650 mg Q6H PRN NGT PAIN LEVEL 1-3 OR FEVER Last administered on 09/12/18at 09:30; Admin Dose 650 MG; Start 09/09/18 at 16:30 Morphine Sulfate (morphine) 2 mg Q4H PRN IV PAIN LEVEL 7-10 Last administered on 09/13/18at 10:11; Admin Dose 2 MG; Start 09/09/18 at 16:30 Pantoprazole (Protonix Iv) 40 mg DAILY@06 IV Last administered on 09/13/18at 05:33; Admin Dose 40 MG; Start 09/10/18 at 06:00 Piperacillin Sod/ Tazobactam Sod 100 ml @ 200 mls/hr Q8 IVPB Last administered on 09/13/18at 05:33; Admin Dose 200 MLS/HR; Start 09/09/18 at 22:00 Midazolam HCl 50 ml @ 1 mls/hr TITRATE IV Last administered on 09/11/18at 09:30; Admin Dose 6 MLS/HR; Start 09/09/18 at 18:30 Fentanyl 100 ml @ 2.5 mls/hr TITRATE IV Last administered on 09/11/18at 09:00; Admin Dose 10 MLS/HR; Start 09/09/18 at 21:30 Norepinephrine 16 mg/Dextrose 500 ml @ 1.88 mls/hr TITRATE IV Last administered on 09/11/18at 12:02; Admin Dose 37.5 MLS/HR; Start 09/10/18 at 08:00 Potassium Chloride (Potassium Chloride Pwd/Soln) 20 meq PER PROTOCOL PRN PO POTASSIUM REPLACEMENT PROTOCOL Last administered on 09/12/18at 16:13; Admin Dose 20 MEQ; Start 09/10/18 at 09:00 Potassium Chloride (Potassium Chloride Pwd/Soln) 30 meq PER PROTOCOL PRN PO POTASSIUM REPLACEMENT PROTOCOL Last administered on 09/13/18at 06:32; Admin Dose 30 MEQ; Start 09/10/18 at 09:00 Potassium Chloride (Potassium Chloride Pwd/Soln) 40 meq PER PROTOCOL PRN PO POTASSIUM REPLACEMENT PROTOCOL; Start 09/10/18 at 09:00 Aspirin (Aspirin) 300 mg DAILY [place] Last administered on 09/13/18at 10:11; Admin Dose 300 MG; Start 09/11/18 at 09:00 Insulin Aspart (Novolog Insulin Pen) NOVOLOG *MILD* ALGORI... Q4 SC ; Start 09/12/18 at 05:00 Miscellaneous Information 1 ea NOTE XX ; Start 09/12/18 at 04:30 Glucose (Glutose) 15 gm Q15M PRN PO DECREASED GLUCOSE; Start 09/12/18 at 04:30 Glucose (Glutose) 22.5 gm Q15M PRN PO DECREASED GLUCOSE; Start 09/12/18 at 04 :30 Dextrose (D50w Syringe) 25 ml Q15M PRN IV DECREASED GLUCOSE; Start 09/12/18 at 04:30 Dextrose (D50w Syringe) 50 ml Q15M PRN IV DECREASED GLUCOSE; Start 09/12/18 at 04:30 Glucagon (Glucagen) 1 mg Q15M PRN IM DECREASED GLUCOSE; Start 09/12/18 at 04:30 Glucose (Glutose) 15 gm Q15M PRN BUCCAL DECREASED GLUCOSE; Start 09/12/18 at 04:30 Albuterol (Ventolin Hfa) 4 puff Q6H RESP THERAPY INH Last administered on 09/13/18at 08:19; Admin Dose 4 PUFF; Start 09/12/18 at 20:00 Potassium Chloride 100 ml @ 50 mls/hr Q2H IVPB Last administered on 09/13/18at 13:02; Admin Dose 50 MLS/HR; Start 09/13/18 at 11:00; Stop 09/13/18 at 14:59 Lorazepam (Ativan) 1 mg Q4H PRN IV agitation, anxiety; Start 09/13/18 at 11:00 Propofol 100 ml @ 1.95 mls/hr Q12H IV Last administered on 09/13/18at 11:06; Admin Dose 9.75 MLS/HR; Start 09/13/18 at 11:00 Allergies: Coded Allergies: Unknown: Unable to obtain (Unverified , 09/11/18) Past Surgical History Past Surgical Hx: other (unknown) Social History Alcohol Use: other (unknown) Smoking Status: Unknown if ever smoked Drug Use: other (unknown) Exam/Review of Systems Vital Signs Vitals Vital Signs Date Temp Pulse Resp B/P (MAP) Pulse Ox O2 O2 Flow FiO2 Time Delivery Rate 09/13/18 68 20 110/56 100 Mechanical 13:00 (74) Ventilator 09/13/18 97.5 12:00 09/13/18 40 08:00 09/09/18 15.0 14:50 Intake and Output 09/12/18 09/12/18 09/13/18 1515:00 23:00 07:00 IntakeIntake Total 616.25 ml 540 ml 440 ml OutputOutput Total 860 ml 1105 ml 320 ml BalanceBalance -243.75 ml -565 ml 120 ml Medications Medications Current Medications Albuterol (Ventolin Hfa) 4 puff Q2H RESP THERAPY PRN INH SHORTNESS OF BREATH; Start 09/09/18 at 16:30 Acetaminophen (Tylenol Liquid) 650 mg Q6H PRN NGT PAIN LEVEL 1-3 OR FEVER Last administered on 09/12/18at 09:30; Admin Dose 650 MG; Start 09/09/18 at 16:30 Morphine Sulfate (morphine) 2 mg Q4H PRN IV PAIN LEVEL 7-10 Last administered on 09/13/18 10:11; Admin Dose 2 MG; Start 09/09/18 at 16:30 Pantoprazole (Protonix Iv) 40 mg DAILY@06 IV Last administered on 09/13/18 05:33; Admin Dose 40 MG; Start 09/10/18 at 06:00 Piperacillin Sod/ Tazobactam Sod 100 ml @ 200 mls/hr Q8 IVPB Last administered on 09/13/18 05:33; Admin Dose 200 MLS/HR; Start 09/09/18 at 22:00 Midazolam HCl 50 ml @ 1 mls/hr TITRATE IV Last administered on 09/11/18 09:30; Admin Dose 6 MLS/HR; Start 09/09/18 at 18:30 Fentanyl 100 ml @ 2.5 mls/hr TITRATE IV Last administered on 09/11/18 09:00; Admin Dose 10 MLS/HR; Start 09/09/18 at 21:30 Norepinephrine 16 mg/Dextrose 500 ml @ 1.88 mls/hr TITRATE IV Last administered on 09/11/18at 12:02; Admin Dose 37.5 MLS/HR; Start 09/10/18 at 08:00 Potassium Chloride (Potassium Chloride Pwd/Soln) 20 meq PER PROTOCOL PRN PO POTASSIUM REPLACEMENT PROTOCOL Last administered on 09/12/18at 16:13; Admin Dose 20 MEQ; Start 09/10/18 at 09:00 Potassium Chloride (Potassium Chloride Pwd/Soln) 30 meq PER PROTOCOL PRN PO POTASSIUM REPLACEMENT PROTOCOL Last administered on 09/13/18 06:32; Admin Dose 30 MEQ; Start 09/10/18 at 09:00 Potassium Chloride (Potassium Chloride Pwd/Soln) 40 meq PER PROTOCOL PRN PO POTA SSIUM REPLACEMENT PROTOCOL; Start 09/10/18 at 09:00 Aspirin (Aspirin) 300 mg DAILY [place] Last administered on 09/13/18 10:11; Admin Dose 300 MG; Start 09/11/18 at 09:00 Insulin Aspart (Novolog Insulin Pen) NOVOLOG *MILD* ALGORI... Q4 SC ; Start 09/12/18 at 05:00 Miscellaneous Information 1 ea NOTE XX ; Start 09/12/18 at 04:30 Glucose (Glutose) 15 gm Q15M PRN PO DECREASED GLUCOSE; Start 09/12/18 at 04:30 Glucose (Glutose) 22.5 gm Q15M PRN PO DECREASED GLUCOSE; Start 09/12/18 at 04:30 Dextrose (D50w Syringe) 25 ml Q15M PRN IV DECREASED GLUCOSE; Start 09/12/18 at 04:30 Dextrose (D50w Syringe) 50 ml Q15M PRN IV DECREASED GLUCOSE; Start 09/12/18 at 04:30 Glucagon (Glucagen) 1 mg Q15M PRN IM DECREASED GLUCOSE; Start 09/12/18 at 04:30 Glucose (Glutose) 15 gm Q15M PRN BUCCAL DECREASED GLUCOSE; Start 09/12/18 at 04:30 Albuterol (Ventolin Hfa) 4 puff Q6H RESP THERAPY INH Last administered on 09/13/18at 08:19; Admin Dose 4 PUFF; Start 09/12/18 at 20:00 Potassium Chloride 100 ml @ 50 mls/hr Q2H IVPB Last administered on 09/13/18at 13:02; Admin Dose 50 MLS/HR; Start 09/13/18 at 11:00; Stop 09/13/18 at 14:59 Lorazepam (Ativan) 1 mg Q4H PRN IV agitation, anxiety; Start 09/13/18 at 11:00 Propofol 100 ml @ 1.95 mls/hr Q12H IV Last administered on 09/13/18at 11:06; Admin Dose 9.75 MLS/HR; Start 09/13/18 at 11:00 SERA DOWELL Sep 13, 2018 13:36
--- NOTE | 2018-09-13 14:32 | NUR ---
SS NOTE: FAMILY CONF DR. ALVAREZ AND THIS SW MET WITH PT'S 2 DTRS, SON-IN-LAW, SISTER, AND NIECE. DR. ALVAREZ UPDATED FAMILY ON PT'S CONDITION AND PLAN OF CARE. ANSWERED FAMILY'S QUESTIONS. EXPLAINED THAT AT THIS TIME THE PLAN IS TO WEAN PT OFF THE VENT WHEN SHE IS ABLE TO TOLERATE CPAP TRIALS. FAMILY OVERALL VERY THANKFUL FOR THE CARE. NO OTHER ISSUES PRESENT AT THIS TIME. SW WILL REMAIN AVAILABLE NEEDED.
--- NOTE | 2018-09-13 14:52 | CONS ---
Date/Time of Note Date/Time of Note DATE: 09/13/18 TIME: 14:50 Consult Date/Type/Reason Admit Date/Time Sep 09, 2018 at 16:10 Initial Consult Date 09/10/18 Type of Consultation: cv Requesting Provider: OZZIE ALVAREZ MD Subjective Interventional cardiology follow-up progress note/critical care note Subjective: Case discussed with the staff and rhythm was reviewed. Patient remains in sinus rhythm sinus bradycardia/NSR no VT. d/w multiple physicians Patient has completed hypothermia protocol pt has been less hypotensive and off levophed now. Discussed with patient's family The old records that they were able to provide was reviewed. Patient appears that has had hypertension and dyslipidemia and has been on lisinopril and Procardia and simvastatin at home. According to the family patient has been very active generally but has had dyspnea on exertion and has been complaint of lower extremity edema lately. 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 pupils are equal. round. NECK: no stridor. CV: RRR. systolic murmur; no gallop or rubs. PULM: no wheezing + rhonchi. GI: SOFT, NT, ND, no rebound or guarding Extremity: trace B/L LE edema. no clubbing. neuro: sedated now Psych: calm rectal: deferred CVP around 10 now CXR 1. Cardiomegaly and mild failure. 2. Superimposed dense right central and mid lung pneumonia, similar in appearance to the prior examination. 3. Recommend advancing nasogastric tube about [address] tip and side port well within the gastric lumen, with re-imaging. echo reviewed Normal left ventricular cavity size. Moderate concentric left ventricular hypertrophy. Severe global left ventricular systolic dysfunction. Ejection fraction is visually estimated at 20 %. Mitral valve leaflets appear mildly thickened. Mild mitral annular calcification. Trace mitral regurgitation. No significant aortic stenosis or insufficiency. Aortic cusps appear mildly calcified. Normal appearance of the tricuspid valve. Estimated peak PA systolic pressure 27 mmHg. There is mild tricuspid regurgitation. Dilated IVC without respiratory collapse, however, patient on ventilator. Objective Vital Signs Date Temp Pulse Resp B/P (MAP) Pulse Ox O2 O2 Flow FiO2 Time Delivery Rate 09/13/18 68 20 110/56 100 Mechanical 13:00 (74) Ventilator 09/13/18 97.5 12:00 09/13/18 40 08:00 09/09/18 15.0 14:50 Intake and Output 09/12/18 09/12/18 09/13/18 1515:00 23:00 07:00 IntakeIntake Total 616.25 ml 540 ml 440 ml OutputOutput Total 860 ml 1105 ml 320 ml BalanceBalance -243.75 ml -565 ml 120 ml Results/Medications Result Diagram: 09/13/18 0400 09/13/18 0400 Results 24 hrs Laboratory Tests Test 09/12/18 15:18 09/12/18 16:52 09/12/18 21:02 09/12/18 22:12 Sodium Level 138 Potassium Level 3.4 L 3.8 Chloride Level 105 Carbon Dioxide Level 28 Anion Gap 5 Blood Urea Nitrogen 26 H Creatinine 1.40 H Est Glomerular 46 L Filtrat Rate mL/min Glucose Level 93 Calcium Level 7.8 L Magnesium Level 2.5 Bedside Glucose 98 96 Test 09/13/18 00:49 09/13/18 04:00 09/13/18 05:33 09/13/18 10:14 Bedside Glucose 103 109 119 White Blood Count 8.0 Red Blood Count 2.93 L Hemoglobin 8.9 L Hematocrit 26.8 L Mean Corpuscular 91.5 Volume Mean Corpuscular 30.4 Hemoglobin Mean Corpuscular 33.2 Hemoglobin Concent Red Cell 14.3 Distribution Width Platelet Count 81 L Mean Platelet Volume 12.2 H Immature 0.600 H Granulocytes % Neutrophils % Segmented 58 Neutrophils % (Manual) Band Neutrophils % 34 H (Manual) Lymphocytes % Lymphocytes % 7 L (Manual) Monocytes % Monocytes % (Manual) 1 Eosinophils % Basophils % Nucleated Red Blood 0.0 Cells % Immature 0.050 H Granulocytes # Neutrophils # Neutrophils # 4.9 (Manual) Band Neutrophils # 2.7 H Lymphocytes (Manual) 0.5 L Lymphocytes # Monocytes # Monocytes # (Manual) 0.0 L Eosinophils # Basophils # Nucleated Red Blood Cells # Platelet Estimate DECREASED Sodium Level 139 Potassium Level 3.4 L Chloride Level 106 Carbon Dioxide Level 27 Anion Gap 6 Blood Urea Nitrogen 29 H Creatinine 1.44 H Est Glomerular 44 L Filtrat Rate mL/min Glucose Level 103 Calcium Level 8.1 L Magnesium Level 2.4 Total Bilirubin 0.5 Direct Bilirubin 0.00 Indirect Bilirubin 0.5 Aspartate Amino 144 H Transf (AST/SGOT) Alanine 148 H Aminotransferase (AL T/SGPT) Alkaline Phosphatase 88 # Total Protein 5.1 #L Albumin 2.7 L Globulin 2.40 Albumin/Globulin 1.12 Ratio Test 09/13/18 13:04 Bedside Glucose 126 Medications Current Medications Albuterol (Ventolin Hfa) 4 puff Q2H RESP THERAPY PRN INH SHORTNESS OF BREATH; Start 09/09/18 at 16:30 Acetaminophen (Tylenol Liquid) 650 mg Q6H PRN NGT PAIN LEVEL 1-3 OR FEVER Last administered on 09/12/18 09:30; Admin Dose 650 MG; Start 09/09/18 at 16:30 Morphine Sulfate (morphine) 2 mg Q4H PRN IV PAIN LEVEL 7-10 Last administered on 09/13/18 10:11; Admin Dose 2 MG; Start 09/09/18 at 16:30 Pantoprazole (Protonix Iv) 40 mg DAILY@06 IV Last administered on 09/13/18 05:33; Admin Dose 40 MG; Start 09/10/18 at 06:00 Piperacillin Sod/ Tazobactam Sod 100 ml @ 200 mls/hr Q8 IVPB Last administered on 09/13/18 05:33; Admin Dose 200 MLS/HR; Start 09/09/18 at 22:00 Midazolam HCl 50 ml @ 1 mls/hr TITRATE IV Last administered on 09/11/18 09:30; Admin Dose 6 MLS/HR; Start 09/09/18 at 18:30 Fentanyl 100 ml @ 2.5 mls/hr TITRATE IV Last administered on 09/11/18 09:00; Admin Dose 10 MLS/HR; Start 09/09/18 at 21:30 Norepinephrine 16 mg/Dextrose 500 ml @ 1.88 mls/hr TITRATE IV Last administered on 09/11/18 12:02; Admin Dose 37.5 MLS/HR; Start 09/10/18 at 08:00 Potassium Chloride (Potassium Chloride Pwd/Soln) 20 meq PER PROTOCOL PRN PO POTASSIUM REPLACEMENT PROTOCOL Last administered on 09/12/18 16:13; Admin Dose 20 MEQ; Start 09/10/18 at 09:00 Potassium Chloride (Potassium Chloride Pwd/Soln) 30 meq PER PROTOCOL PRN PO POTASSIUM REPLACEMENT PROTOCOL Last administered on 1/11/19at 06:32; Admin Dose 30 MEQ; Start 09/10/18 at 09:00 Potassium Chloride (Potassium Chloride Pwd/Soln) 40 meq PER PROTOCOL PRN PO POTASSIUM REPLACEMENT PROTOCOL; Start 09/10/18 at 09:00 Aspirin (Aspirin) 300 mg DAILY [place] Last administered on 09/13/18at 10:11; Admin Dose 300 MG; Start 09/11/18 at 09:00 Insulin Aspart (Novolog Insulin Pen) NOVOLOG *MILD* ALGORI... Q4 SC ; Start 09/12/18 at 05:00 Miscellaneous Information 1 ea NOTE XX ; Start 09/12/18 at 04:30 Glucose (Glutose) 15 gm Q15M PRN PO DECREASED GLUCOSE; Start 09/12/18 at 04:30 Glucose (Glutose) 22.5 gm Q15M PRN PO DECREASED GLUCOSE; Start 09/12/18 at 04:30 Dextrose (D50w Syringe) 25 ml Q15M PRN IV DECREASED GLUCOSE; Start 09/12/18 at 04:30 Dextrose (D50w Syringe) 50 ml Q15M PRN IV DECREASED GLUCOSE; Start 09/12/18 at 04:30 Glucagon (Glucagen) 1 mg Q15M PRN IM DECREASED GLUCOSE; Start 09/12/18 at 04:30 Glucose (Glutose) 15 gm Q15M PRN BUCCAL DECREASED GLUCOSE; Start 09/12/18 at 04:30 Albuterol (Ventolin Hfa) 4 puff Q6H RESP THERAPY INH Last administered on 09/13/18at 08:19; Admin Dose 4 PUFF; Start 09/12/18 at 20:00 Potassium Chloride 100 ml @ 50 mls/hr Q2H IVPB Last administered on 09/13/18at 13:02; Admin Dose 50 MLS/HR; Start 09/13/18 at 11:00; Stop 09/13/18 at 14:59 Lorazepam (Ativan) 1 mg Q4H PRN IV agitation, anxiety; Start 09/13/18 at 11:00 Propofol 100 ml @ 1.95 mls/hr Q12H IV Last administered on 09/13/18at 11:06; Admin Dose 9.75 MLS/HR; Start 09/13/18 at 11:00 Assessment/Plan Chief Complaint/Hosp Course 1. Cardiopulmonary arrest 2. Hypoxemic hypercapnic respiratory failure status post intubation on the vent 3. Right lung infiltrate consistent with pneumonia possible aspiration pneumonia 4. V. tach arrest: in association with severe hypokalemia 5. Encephalopathy 6. Severe lactic acidosis 7. Hyperglycemia 8. Transaminitis 9. Severe hypokalemia 10. Incomplete data 11. NSTEMI 12. Cardiomyopathy 13. JULISSA Recommendations: Continue with vent support. cont tube feeding lasix 20 qd starting tomorrow for now and will adjust correct the potassium and Mg to keep K more than 4, magnesium more than 2 Antibiotic management will be deferred to internal medicine team Hypothermia protocol already completed Echocardiogram was reviewed. Electrolytes will be repeated. will try to contact pt PCP and get more records cont ICU care. full code for now More than 35 minutes of critical care time was for management treatment is critically patient excluding any procedures Thank you for his referral. We will continue to follow along with you DEMETRIUS MCCRAY MD [facility] DEMETRIUS MCCRAY MD Sep 13, 2018 14:52
--- NOTE | 2018-09-13 15:41 | PN ---
Date/Time of Note Date/Time of Note DATE: 09/13/18 TIME: 15:34 Assessment/Plan VTE [place] [facility] [place]: 10 [place] [facility] [place] Yes Pharmacological prophylaxis: NA/contraindicated Pharm contraindication: low risk/ambulating Lines/Catheters IV Catheter Type (from [facility], [place]): Central Line Central line still needed: Yes Urinary Cath still in place: Yes Reason Cath still needed: urinary retention Assessment/Plan Hospital Course ASSESSMENT AND PLAN: This is a 63-year-old female who presented with: 1. Non oliguric Acute renal failure. Also noted the patient with a creatinine was 0.89 on 09/09/2018. Since then, the patient was in cardiogenic shock, received CPR, was in V-fib arrest. Patient was also started on vancomycin/Zosyn and currently CVPs are 15 to 16. CVP improved, Cr stable 2. Hypokalemia could be secondary to vomiting on admission; however, patient was also given diuretics currently. 3. V-fibrillation cardiac arrest with EF of 20%. 4. Shock secondary to cardiogenic likely/aspiration pneumonia. 5. Acute hypoxic respiratory failure, intubated. 6. Transaminitis. 7. Hypertension. Recs - Fluid restriction - Renal U/S with mild left hydro; cw monitor - agree with lasix 20 - monitor UOP - zosyn renally dosed - Pt might need angiogram > spoke to cards/ primary - renally dose all meds - avoid nephrotxins Result Diagram: 09/13/18 0400 09/13/18 0400 Results 24hrs Laboratory Tests Test 09/12/18 16:52 09/12/18 21:02 09/12/18 22:12 09/13/18 00:49 Bedside Glucose 98 96 103 Potassium Level 3.8 Test 09/13/18 04:00 09/13/18 05:33 09/13/18 10:14 09/13/18 13:04 White Blood Count 8.0 Red Blood Count 2.93 L Hemoglobin 8.9 L Hematocrit 26.8 L Mean Corpuscular 91.5 Volume Mean Corpuscular 30.4 Hemoglobin Mean Corpuscular 33.2 Hemoglobin Concent Red Cell 14.3 Distribution Width Platelet Count 81 L Mean Platelet Volume 12.2 H Immature 0.600 H Granulocytes % Neutrophils % Segmented 58 Neutrophils % (Manual) Band Neutrophils % 34 H (Manual) Lymphocytes % Lymphocytes % 7 L (Manual) Monocytes % Monocytes % (Manual) 1 Eosinophils % Basophils % Nucleated Red Blood 0.0 Cells % Immature 0.050 H Granulocytes # Neutrophils # Neutrophils # 4.9 (Manual) Band Neutrophils # 2.7 H Lymphocytes (Manual) 0.5 L Lymphocytes # Monocytes # Monocytes # (Manual) 0.0 L Eosinophils # Basophils # Nucleated Red Blood Cells # Platelet Estimate DECREASED Sodium Level 139 Potassium Level 3.4 L Chloride Level 106 Carbon Dioxide Level 27 Anion Gap 6 Blood Urea Nitrogen 29 H Creatinine 1.44 H Est Glomerular 44 L Filtrat Rate mL/min Glucose Level 103 Calcium Level 8.1 L Magnesium Level 2.4 Total Bilirubin 0.5 Direct Bilirubin 0.00 Indirect Bilirubin 0.5 Aspartate Amino 144 H Transf (AST/SGOT) Alanine 148 H Aminotransferase (AL T/SGPT) Alkaline Phosphatase 88 # Total Protein 5.1 #L Albumin 2.7 L Globulin 2.40 Albumin/Globulin 1.12 Ratio Bedside Glucose 109 119 126 Subjective 24 Hr Interval Summary Free Text/Dictation Pt cr 1.4 UOP good CPAP trial this am, possible extubation tmw s/p lasix yesterday Exam/Review of Systems Vital Signs Vitals Vital Signs Date Temp Pulse Resp B/P (MAP) Pulse Ox O2 O2 Flow FiO2 Time Delivery Rate 09/13/18 63 20 100/55 100 Mechanical 15:00 (70) Ventilator 09/13/18 97.5 12:00 09/13/18 40 08:00 09/09/18 15.0 14:50 Intake and Output 09/12/18 09/12/18 09/13/18 1515:00 23:00 07:00 IntakeIntake Total 616.25 ml 540 ml 440 ml OutputOutput Total 860 ml 1105 ml 320 ml BalanceBalance -243.75 ml -565 ml 120 ml Exam GENERAL: Patient is able to open eyes, moving extremities, trying to follow some commands, intubated NECK: Supple. HEART: Regular rate and rhythm. LUNGS: Decreased breath sounds bilaterally, especially on the right. ABDOMEN: Soft, nontender, nondistended, positive normoactive bowel sounds. EXTREMITIES: No clubbing, cyanosis, or edema. NEUROLOGIC: opens eyes Medications Medications Current Medications Albuterol (Ventolin Hfa) 4 puff Q2H RESP THERAPY PRN INH SHORTNESS OF BREATH; Start 09/09/18 at 16:30 Acetaminophen (Tylenol Liquid) 650 mg Q6H PRN NGT PAIN LEVEL 1-3 OR FEVER Last administered on 09/12/18 09:30; Admin Dose 650 MG; Start 09/09/18 at 16:30 Morphine Sulfate (morphine) 2 mg Q4H PRN IV PAIN LEVEL 7-10 Last administered on 09/13/18 10:11; Admin Dose 2 MG; Start 09/09/18 at 16:30 Pantoprazole (Protonix Iv) 40 mg DAILY@06 IV Last administered on 09/13/18 05:33; Admin Dose 40 MG; Start 09/10/18 at 06:00 Piperacillin Sod/ Tazobactam Sod 100 ml @ 200 mls/hr Q8 IVPB Last administered on 09/13/18 14:53; Admin Dose 200 MLS/HR; Start 09/09/18 at 22:00 Midazolam HCl 50 ml @ 1 mls/hr TITRATE IV Last administered on 09/11/18 09:30; Admin Dose 6 MLS/HR; Start 09/09/18 at 18:30 Fentanyl 100 ml @ 2.5 mls/hr TITRATE IV Last administered on 09/11/18 09:00; Admin Dose 10 MLS/HR; Start 09/09/18 at 21:30 Norepinephrine 16 mg/Dextrose 500 ml @ 1.88 mls/hr TITRATE IV Last administered on 09/11/18 12:02; Admin Dose 37.5 MLS/HR; Start 09/10/18 at 08:00 Potassium Chloride (Potassium Chloride Pwd/Soln) 20 meq PER PROTOCOL PRN PO POTASSIUM REPLACEMENT PROTOCOL Last administered on 09/12/18 16:13; Admin Dose 20 MEQ; Start 09/10/18 at 09:00 Potassium Chloride (Potassium Chloride Pwd/Soln) 30 meq PER PROTOCOL PRN PO POTASSIUM REPLACEMENT PROTOCOL Last administered on 09/13/18 06:32; Admin Dose 30 MEQ; Start 09/10/18 at 09:00 Potassium Chloride (Potassium Chloride Pwd/Soln) 40 meq PER PROTOCOL PRN PO POTASSIUM REPLACEMENT PROTOCOL; Start 09/10/18 at 09:00 Aspirin (Aspirin) 300 mg DAILY [place] Last administered on 09/13/18 10:11; Admin Dose 300 MG; Start 09/11/18 at 09:00 Insulin Aspart (Novolog Insulin Pen) NOVOLOG *MILD* ALGORI... Q4 SC ; Start 09/12/18 at 05:00 Miscellaneous Information 1 ea NOTE XX ; Start 09/12/18 at 04:30 Glucose (Glutose) 15 gm Q15M PRN PO DECREASED GLUCOSE; Start 09/12/18 at 04:30 Glucose (Glutose) 22.5 gm Q15M PRN PO DECREASED GLUCOSE; Start 09/12/18 at 04:30 Dextrose (D50w Syringe) 25 ml Q15M PRN IV DECREASED GLUCOSE; Start 09/12/18 at 04:30 Dextrose (D50w Syringe) 50 ml Q15M PRN IV DECREASED GLUCOSE; Start 09/12/18 at 04:30 Glucagon (Glucagen) 1 mg Q15M PRN IM DECREASED GLUCOSE; Start 09/12/18 at 04:30 Glucose (Glutose) 15 gm Q15M PRN BUCCAL DECREASED GLUCOSE; Start 09/12/18 at 04:30 Albuterol (Ventolin Hfa) 4 puff Q6H RESP THERAPY INH Last administered on 09/13/18at 08:19; Admin Dose 4 PUFF; Start 09/12/18 at 20:00 Lorazepam (Ativan) 1 mg Q4H PRN IV agitation, anxiety; Start 09/13/18 at 11:00 Propofol 100 ml @ 1.95 mls/hr Q12H IV Last administered on 09/13/18at 11:06; Admin Dose 9.75 MLS/HR; Start 09/13/18 at 11:00 Furosemide (Lasix) 20 mg DAILY@0600 IV ; Start 09/14/18 at 06:00 RICHARD GIRARD MD Sep 13, 2018 15:41
--- NOTE | 2018-09-13 16:50 | NUR ---
Case management note: This CM spoke Allison with [facility] regarding discharge Gave verbal report for continuos stay Fax update Sunday @ [phone] Auth # thru Sunday [id number]
[2018-09-14] VITALS (37 sets, daily range): BP systolic 122–168; BP diastolic 61–101; PULSE 36–99; RESP 20–37
[2018-09-14] MEDS: INSULIN ASPART [NOVOLOG] 3 ML PEN SC SCH ×6 (01:00→20:46)
--- NOTE | 2018-09-14 01:53 | RADRPT ---
Vent Rate: 86 bpm RR Interval: 0 msec NM Interval: 0 msec QRS Duration: 156 msec QT Interval: 440 msec QTC Interval: 526 msec P-R-T [place]: 0 - 22 - 0 degrees Atrial fibrillation Left bundle branch block Abnormal ECG Electronically Signed By: Parviz Santos [id number]
[2018-09-14] MEDS: ALBUTEROL HFA 8 GM INHALER INH SCH ×4 (01:56→19:57)
[2018-09-14] MEDS: PROPOFOL 100 ML IV SCH ×2 (03:59→22:44)
--- NOTE | 2018-09-14 05:21 | NUR ---
EOSS: Pt remains orally intubated to vent, no SOB. vital signs within range, afebrile . turned and repositioned , tolerated, sedated with Propofol qtt. sahni with adeq. u/o , flexiseal for liquid stools . no signs of pain, no distress, blood sugar by ACCucheck within range. complete bedbath rendered
[2018-09-14] MEDS: PANTOPRAZOLE 40 MG INJ IV SCH (05:31)
[2018-09-14] MEDS: PIPER-TAZO 3.375 GM IV (PMX) 100 ML IVPB SCH ×3 (05:32→21:45)
[2018-09-14] MEDS: FUROSEMIDE 20 MG INJ IV SCH (05:32)
--- NOTE | 2018-09-14 08:15 | NUR ---
RESTRAINTS DC'D THIS RN HAS ONLY ONE PATIENT AT THIS TIME, AND WILL BE AT BEDSIDE TO MONITOR PATIENT CLOSELY.
--- NOTE | 2018-09-14 09:00 | CONS ---
Date/Time of Note Date/Time of Note DATE: 09/14/18 TIME: 08:57 Assessment/Plan Assessment/Plan Assessment/Plan Ventilator setting; AC of 20, tidal volume 500, PEEP of 5, 30% FiO2. Patient is on propofol 45 mics per kilogram per minute. Assessment recommendations; 1 patient admitted with cardiac arrest likely due to hypokalemia causing V. fib status post CPR status post hypothermia protocol with preservation of mental status. Patient was to weak yesterday to undergo CPAP trial. 2. Extensive right-sided pneumonia likely aspiration, currently on appropriate antimicrobial regimen. There has been significant improvement in oxygenation. 3. Acute renal injury with improving renal function. 4. Anemia and thrombocytopenia. Hold sedation. Once the patient off sedation she will be evaluated for possible weaning from ventilator. Chest x-ray from today is pending. Continue current antibiotics and other supportive measures. 35 minutes of critical care time was spent evaluating the patient. Result Diagram: 09/14/18 0400 09/14/18 0400 Results 24hrs Laboratory Tests Test 09/13/18 10:14 09/13/18 13:04 09/13/18 16:40 09/13/18 20:54 Bedside Glucose 119 126 113 89 Test 09/14/18 01:50 09/14/18 04:00 09/14/18 04:53 Bedside Glucose 94 93 White Blood Count 7.9 Red Blood Count 2.92 L Hemoglobin 8.9 L Hematocrit 26.9 L Mean Corpuscular 92.1 Volume Mean Corpuscular 30.5 Hemoglobin Mean Corpuscular 33.1 Hemoglobin Concent Red Cell 14.6 H Distribution Width Platelet Count 84 L Mean Platelet Volume 11.6 H Immature 1.600 H Granulocytes % Neutrophils % Segmented 77 Neutrophils % (Manual) Band Neutrophils % 7 H (Manual) Lymphocytes % Lymphocytes % 12 L (Manual) Reactive Lymphocytes 1 H % (Manual) Monocytes % Monocytes % (Manual) 1 Eosinophils % Eosinophils % 2 (Manual) Basophils % Nucleated Red Blood 1 H Cells % Immature 0.130 H Granulocytes # Neutrophils # Neutrophils # 6.1 (Manual) Band Neutrophils # 0.5 Lymphocytes (Manual) 0.9 Lymphocytes # Reactive Lymphocytes 0.0 # Monocytes # Monocytes # (Manual) 0.0 L Eosinophils # Basophils # Nucleated Red Blood Cells # Platelet Estimate DECREASED Giant Platelets 2 H Polychromasia 1+ Sodium Level 145 H Potassium Level 3.5 Chloride Level 108 Carbon Dioxide Level 30 Anion Gap 7 Blood Urea Nitrogen 28 H Creatinine 1.23 H Est Glomerular 53 L Filtrat Rate mL/min Glucose Level 109 Calcium Level 8.7 Magnesium Level 2.3 Total Bilirubin 0.4 Direct Bilirubin 0.00 Indirect Bilirubin 0.4 Aspartate Amino 119 H Transf (AST/SGOT) Alanine 130 H Aminotransferase (AL T/SGPT) Alkaline Phosphatase 162 #H B-Type Natriuretic 2210 H Peptide Total Protein 5.6 L Albumin 2.8 L Globulin 2.80 Albumin/Globulin 1.00 Ratio Consultation Date/Type/Reason Admit Date/Time Sep 09, 2018 at 16:10 Initial Consult Date 09/10/18 Type of Consult Pulmonary/critical care History of presenting illness; patient is a 63-year-old lady who was brought into the hospital after found unresponsive. Patient underwent CPR and was in V. fib. Patient was successfully resuscitated intubated and transferred to ICU. By the time I saw her, patient is on mechanical ventilation and on hypothermia protocol. Patient also has remained hypotensive and on high-dose pressor support. Past medical history; 1. Hypertension. Medications; reviewed. Patient is currently on Versed 2 mg/h, fentanyl 50 mics per hour, Levophed 24 mics per minute, insulin drip 0.5 units/h, patient also is on hypothermia protocol with dialysis per protocol. Allergies; unknown. Family history, social history, occupational history is not available. Review of system; unable to be obtained. General exam; elderly female, orally intubated, paralyzed and sedated. Currently no distress. Requesting Provider: OZZIE ALVAREZ MD 24 HR Interval Summary Free Text/Dictation Patient's condition remains critical but stable. Patient is currently sedated with propofol drip. Has remained hemodynamically stable. General exam; elderly female, orally intubated, currently no distress. Exam/Review of Systems Vital Signs Vitals Vital Signs Date Temp Pulse Resp B/P (MAP) Pulse Ox O2 O2 Flow FiO2 Time Delivery Rate 09/14/18 68 08:00 09/14/18 98.2 20 134/77 Mechanical 08:00 (96) Ventilator 09/14/18 100 07:00 09/14/18 40 05:59 Intake and Output 09/13/18 09/13/18 09/14/18 1414:59 22:59 06:59 IntakeIntake Total 185.1 ml 361.15 ml 570.90 ml OutputOutput Total 460 ml 610 ml 805 ml BalanceBalance -274.9 ml -248.85 ml -234.10 ml Exam H EENT exam; supple neck, no JVD. No lymphadenopathy. Midline trachea. No thyromegaly. Orally intubated. Patient has fair dentition. No neck masses. Chest exam; diminished but clear breath sounds. S1-S2 audible, no murmurs. Regular rhythm. Abdomen exam; soft, no organomegaly. Bowel sounds audible. Extremity exam; no peripheral edema or clubbing. LAST CODE STRIPER exam; patient is sedated. Medications Medications Current Medications Albuterol (Ventolin Hfa) 4 puff Q2H RESP THERAPY PRN INH SHORTNESS OF BREATH; Start 09/09/18 at 16:30 Acetaminophen (Tylenol Liquid) 650 mg Q6H PRN NGT PAIN LEVEL 1-3 OR FEVER Last administered on 09/12/18at 09:30; Admin Dose 650 MG; Start 09/09/18 at 16:30 Morphine Sulfate (morphine) 2 mg Q4H PRN IV PAIN LEVEL 7-10 Last administered on 09/13/18at 10:11; Admin Dose 2 MG; Start 09/09/18 at 16:30 Pantoprazole (Protonix Iv) 40 mg DAILY@06 IV Last administered on 09/14/18at 05:31; Admin Dose 40 MG; Start 09/10/18 at 06:00 Piperacillin Sod/ Tazobactam Sod 100 ml @ 200 mls/hr Q8 IVPB Last administered on 09/14/18 05:32; Admin Dose 200 MLS/HR; Start 09/09/18 at 22:00 Potassium Chloride (Potassium Chloride Pwd/Soln) 20 meq PER PROTOCOL PRN PO POTASSIUM REPLACEMENT PROTOCOL Last administered on 09/12/18 16:13; Admin Dose 20 MEQ; Start 09/10/18 at 09:00 Potassium Chloride (Potassium Chloride Pwd/Soln) 30 meq PER PROTOCOL PRN PO POTASSIUM REPLACEMENT PROTOCOL Last administered on 09/13/18 06:32; Admin Dose 30 MEQ; Start 09/10/18 at 09:00 Potassium Chloride (Potassium Chloride Pwd/Soln) 40 meq PER PROTOCOL PRN PO POTASSIUM REPLACEMENT PROTOCOL; Start 09/10/18 at 09:00 Aspirin (Aspirin) 300 mg DAILY [place] Last administered on 09/13/18at 10:11; Admin Dose 300 MG; Start 09/11/18 at 09:00 Insulin Aspart (Novolog Insulin Pen) NOVOLOG *MILD* ALGORI... Q4 SC ; Start 09/12/18 at 05:00 Miscellaneous Information 1 ea NOTE XX ; Start 09/12/18 at 04:30 Glucose (Glutose) 15 gm Q15M PRN PO DECREASED GLUCOSE; Start 09/12/18 at 04:30 Glucose (Glutose) 22.5 gm Q15M PRN PO DECREASED GLUCOSE; Start 09/12/18 at 04:30 Dextrose (D50w Syringe) 25 ml Q15M PRN IV DECREASED GLUCOSE; Start 09/12/18 at 04:30 Dextrose (D50w Syringe) 50 ml Q15M PRN IV DECREASED GLUCOSE; Start 09/12/18 at 04:30 Glucagon (Glucagen) 1 mg Q15M PRN IM DECREASED GLUCOSE; Start 09/12/18 at 04:30 Glucose (Glutose) 15 gm Q15M PRN BUCCAL DECREASED GLUCOSE; Start 09/12/18 at 04:30 Albuterol (Ventolin Hfa) 4 puff Q6H RESP THERAPY INH Last administered on 09/14/18at 08:29; Admin Dose 4 PUFF; Start 09/12/18 at 20:00 Lorazepam (Ativan) 1 mg Q4H PRN IV agitation, anxiety; Start 09/13/18 at 11:00 Propofol 100 ml @ 1.95 mls/hr Q12H IV Last administered on 09/14/18at 03:59; Admin Dose 17.55 MLS/HR; Start 09/13/18 at 11:00 Furosemide (Lasix) 20 mg DAILY@0600 IV Last administered on 09/14/18at 05:32; Admin Dose 20 MG; Start 09/14/18 at 06:00 Dexmedetomidine HCl 200 mcg/ Sodium Chloride 50 ml @ 0 mls/hr TITRATE IV ; Start 09/13/18 at 16:30 ANABELLA LANTIGUA Sep 14, 2018 09:00
[2018-09-14] MEDS: POTASSIUM CHLORIDE 100 ML IVPB SCH ×2 (09:25→11:30)
[2018-09-14] MEDS: ASPIRIN 81 MG TAB NGT SCH (09:25)
--- NOTE | 2018-09-14 09:30 | NUR ---
HELIO AT BEDSIDE DR. ALVAREZ AT BEDSIDE. UPDATED PATIENT'S DAUGHTER, MARBELLA, ON PLAN OF CARE. DR. MCKEON AT BEDSIDE WELL. UPDATED PATIENT'S DAUGHTER, MARBELLA, ON PATIENT'S CURRENT HEART CONDITION AND RELATED PLAN OF CARE. THIS RN MADE DOCTOR AWARE OF PATIENT'S ELEVATED BLOOD PRESSURE. PER DR. MCKEON, HE WILL REVIEW CHART AND PLACE ORDERS FOR NECESSARY MEDICATIONS. WILL CONTINUE TO ASSESS, AND INTERVENE NECESSARY.
--- NOTE | 2018-09-14 10:38 | CONS ---
Date/Time of Note Date/Time of Note DATE: 09/14/18 TIME: 10:36 Assessment/Plan Assessment/Plan Hospital Course 1. Cardiopulmonary arrest 2. Hypoxemic hypercapnic respiratory failure status post intubation on the vent 3. Right lung infiltrate consistent with pneumonia possible aspiration pneumonia 4. V. tach arrest: in association with severe hypokalemia 5. Encephalopathy 6. Severe lactic acidosis 7. Hyperglycemia 8. Transaminitis 9. Severe hypokalemia 10. Incomplete data 11. NSTEMI 12. Cardiomyopathy 13. JULISSA Assessment/Plan 1) will start beta damaris and titrate up as needed 2) DUTCH soon as tolerated 3) K > 4, Mag > 2 4) dw daughter who states that patient had very high blood pressure for many years Result Diagram: 09/14/180 09/14/18 0400 Results 24hrs Laboratory Tests Test 09/13/18 13:04 09/13/18 16:40 09/13/18 20:54 09/14/18 01:50 Bedside Glucose 126 113 89 94 Test 09/14/18 04:00 09/14/18 04:53 09/14/18 09:20 White Blood Count 7.9 Red Blood Count 2.92 L Hemoglobin 8.9 L Hematocrit 26.9 L Mean Corpuscular 92.1 Volume Mean Corpuscular 30.5 Hemoglobin Mean Corpuscular 33.1 Hemoglobin Concent Red Cell 14.6 H Distribution Width Platelet Count 84 L Mean Platelet Volume 11.6 H Immature 1.600 H Granulocytes % Neutrophils % Segmented 77 Neutrophils % (Manual) Band Neutrophils % 7 H (Manual) Lymphocytes % Lymphocytes % 12 L (Manual) Reactive Lymphocytes 1 H % (Manual) Monocytes % Monocytes % (Manual) 1 Eosinophils % Eosinophils % 2 (Manual) Basophils % Nucleated Red Blood 1 H Cells % Immature 0.130 H Granulocytes # Neutrophils # Neutrophils # 6.1 (Manual) Band Neutrophils # 0.5 Lymphocytes (Manual) 0.9 Lymphocytes # Reactive Lymphocytes 0.0 # Monocytes # Monocytes # (Manual) 0.0 L Eosinophils # Basophils # Nucleated Red Blood Cells # Platelet Estimate DECREASED Giant Platelets 2 H Polychromasia 1+ Sodium Level 145 H Potassium Level 3.5 Chloride Level 108 Carbon Dioxide Level 30 Anion Gap 7 Blood Urea Nitrogen 28 H Creatinine 1.23 H Est Glomerular 53 L Filtrat Rate mL/min Glucose Level 109 Calcium Level 8.7 Magnesium Level 2.3 Total Bilirubin 0.4 Direct Bilirubin 0.00 Indirect Bilirubin 0.4 Aspartate Amino 119 H Transf (AST/SGOT) Alanine 130 H Aminotransferase (AL T/SGPT) Alkaline Phosphatase 162 #H B-Type Natriuretic 2210 H Peptide Total Protein 5.6 L Albumin 2.8 L Globulin 2.80 Albumin/Globulin 1.00 Ratio Bedside Glucose 93 86 Consultation Date/Type/Reason Admit Date/Time Sep 09, 2018 at 16:10 Initial Consult Date 09/10/18 Type of Consult cv Requesting Provider: OZZIE ALVAREZ MD 24 HR Interval Summary Subjective hx not possible: pt non-verbal, pt critical status Exam/Review of Systems Vital Signs Vitals Vital Signs Date Temp Pulse Resp B/P (MAP) Pulse Ox O2 O2 Flow FiO2 Time Delivery Rate 09/14/18 71 20 167/97 95 Mechanical 10:00 (120) Ventilator 09/14/18 98.2 08:00 09/14/18 40 08:00 Intake and Output 09/13/18 09/13/18 09/14/18 1515:00 23:00 07:00 IntakeIntake Total 150.7 ml 375.55 ml 598.45 ml OutputOutput Total 455 ml 610 ml 1170 ml BalanceBalance -304.3 ml -234.45 ml -571.55 ml Exam Constitutional: non-verbal Head: normocephalic, atraumatic ENMT: intubated Respiratory: diminished breath sounds Cardiovascular: regular rate and rhythm Gastrointestinal: soft Musculoskeletal: muscle tone, muscle weakness Extremities: normal pulses Neurological: unresponsive Medications Medications Current Medications Albuterol (Ventolin Hfa) 4 puff Q2H RESP THERAPY PRN INH SHORTNESS OF BREATH; Start 09/09/18 at 16:30 Acetaminophen (Tylenol Liquid) 650 mg Q6H PRN NGT PAIN LEVEL 1-3 OR FEVER Last administered on 09/12/18at 09:30; Admin Dose 650 MG; Start 09/09/18 at 16:30 Morphine Sulfate (morphine) 2 mg Q4H PRN IV PAIN LEVEL 7-10 Last administered on 09/13/18at 10:11; Admin Dose 2 MG; Start 09/09/18 at 16:30 Pantoprazole (Protonix Iv) 40 mg DAILY@06 IV Last administered on 09/14/18at 05:31; Admin Dose 40 MG; Start 09/10/18 at 06:00 Piperacillin Sod/ Tazobactam Sod 100 ml @ 200 mls/hr Q8 IVPB Last administered on 09/14/18at 05:32; Admin Dose 200 MLS/HR; Start 09/09/18 at 22:00 Potassium Chloride (Potassium Chloride Pwd/Soln) 20 meq PER PROTOCOL PRN PO POTASSIUM REPLACEMENT PROTOCOL Last administered on 09/12/18at 16:13; Admin Dose 20 MEQ; Start 09/10/18 at 09:00 Potassium Chloride (Potassium Chloride Pwd/Soln) 30 meq PER PROTOCOL PRN PO POTASSIUM REPLACEMENT PROTOCOL Last administered on 09/13/18at 06:32; Admin Dose 30 MEQ; Start 09/10/18 at 09:00 Potassium Chloride (Potassium Chloride Pwd/Soln) 40 meq PER PROTOCOL PRN PO POTASSIUM REPLACEMENT PROTOCOL; Start 09/10/18 at 09:00 Insulin Aspart (Novolog Insulin Pen) NOVOLOG *MILD* ALGORI... Q4 SC ; Start 09/12/18 at 05:00 Miscellaneous Information 1 ea NOTE XX ; Start 09/12/18 at 04:30 Glucose (Glutose) 15 gm Q15M PRN PO DECREASED GLUCOSE; Start 09/12/18 at 04:30 Glucose (Glutose) 22.5 gm Q15M PRN PO DECREASED GLUCOSE; Start 09/12/18 at 04:30 Dextrose (D50w Syringe) 25 ml Q15M PRN IV DECREASED GLUCOSE; Start 09/12/18 at 04:30 Dextrose (D50w Syringe) 50 ml Q15M PRN IV DECREASED GLUCOSE; Start 09/12/18 at 04:30 Glucagon (Glucagen) 1 mg Q15M PRN IM DECREASED GLUCOSE; Start 09/12/18 at 04:30 Glucose (Glutose) 15 gm Q15M PRN BUCCAL DECREASED GLUCOSE; Start 09/12/18 at 04:30 Albuterol (Ventolin Hfa) 4 puff Q6H RESP THERAPY INH Last administered on 09/14/18at 08:29; Admin Dose 4 PUFF; Start 09/12/18 at 20:00 Lorazepam (Ativan) 1 mg Q4H PRN IV agitation, anxiety; Start 09/13/18 at 11:00 Propofol 100 ml @ 1.95 mls/hr Q12H IV Last administered on 09/14/18at 03:59; Admin Dose 17.55 MLS/HR; Start 09/13/18 at 11:00 Furosemide (Lasix) 20 mg DAILY@0600 IV Last administered on 09/14/18at 05:32; Admin Dose 20 MG; Start 09/14/18 at 06:00 Dexmedetomidine HCl 200 mcg/ Sodium Chloride 50 ml @ 0 mls/hr TITRATE IV ; Start 09/13/18 at 16:30 Potassium Chloride 100 ml @ 50 mls/hr Q2H IVPB Last administered on 09/14/18at 09:25; Admin Dose 50 MLS/HR; Start 09/14/18 at 09:00; Stop 09/14/18 at 12:59 Aspirin (Aspirin) 81 mg DAILY NGT Last administered on 09/14/18 09:25; Admin Dose 81 MG; Start 09/14/18 at 09:30 XOCHITL MCKEON MD Sep 14, 2018 10:38
--- NOTE | 2018-09-14 11:54 | PN ---
Date/Time of Note Date/Time of Note DATE: 09/14/18 TIME: 11:48 Assessment/Plan VTE Pro[place]axis [place] [facility] [place]: 12 [place]CD applied [place] [facility] [place] Yes Pharmacological prophylaxis: NA/contraindicated Pharm contraindication: bleeding Lines/Catheters IV C[facility]ter Type (from [facility] Central Line Central line still needed: Yes Urinary Cath still in place: Yes Reason Cath still needed: urinary retention Assessment/Plan Hospital Course 1. Non oliguric acute renal failure. Also noted the patient with a creatinine was 0.89 on 09/09/2018. Since then, the patient was in cardiogenic shock, received CPR, was in V-fib arrest. Patient was also started on vancomycin/Zosyn and currently CVPs are 15 to 16. CVP improved, Cr stable 2. Hypokalemia could be secondary to vomiting on admission; however, patient was also given diuretics currently. 3. V-fibrillation cardiac arrest with EF of 20%. 4. Shock secondary to cardiogenic likely/aspiration pneumonia. 5. Acute hypoxic respiratory failure, intubated. 6. Transaminitis. 7. Hypertension. 8. CHF 9. right lung pneumonia Assessment/Plan - Fluid restriction - Renal U/S with mild left hydro; cw monitor - c/w lasix 20 - monitor UOP - zosyn renally dosed - Pt might need angiogram > spoke to cards/ primary - renally dose all meds - avoid nephrotoxins Result Diagram: 09/14/18 0400 09/14/18 0400 Results 24hrs Laboratory Tests Test 09/13/18 13:04 09/13/18 16:40 09/13/18 20:54 09/14/18 01:50 Bedside Glucose 126 113 89 94 Test 09/14/18 04:00 09/14/18 04:53 09/14/18 09:20 White Blood Count 7.9 Red Blood Count 2.92 L Hemoglobin 8.9 L Hematocrit 26.9 L Mean Corpuscular 92.1 Volume Mean Corpuscular 30.5 Hemoglobin Mean Corpuscular 33.1 Hemoglobin Concent Red Cell 14.6 H Distribution Width Platelet Count 84 L Mean Platelet Volume 11.6 H Immature 1.600 H Granulocytes % Neutrophils % Segmented 77 Neutrophils % (Manual) Band Neutrophils % 7 H (Manual) Lymphocytes % Lymphocytes % 12 L (Manual) Reactive Lymphocytes 1 H % (Manual) Monocytes % Monocytes % (Manual) 1 Eosinophils % Eosinophils % 2 (Manual) Basophils % Nucleated Red Blood 1 H Cells % Immature 0.130 H Granulocytes # Neutrophils # Neutrophils # 6.1 (Manual) Band Neutrophils # 0.5 Lymphocytes (Manual) 0.9 Lymphocytes # Reactive Lymphocytes 0.0 # Monocytes # Monocytes # (Manual) 0.0 L Eosinophils # Basophils # Nucleated Red Blood Cells # Platelet Estimate DECREASED Giant Platelets 2 H Polychromasia 1+ Sodium Level 145 H Potassium Level 3.5 Chloride Level 108 Carbon Dioxide Level 30 Anion Gap 7 Blood Urea Nitrogen 28 H Creatinine 1.23 H Est Glomerular 53 L Filtrat Rate mL/min Glucose Level 109 Calcium Level 8.7 Magnesium Level 2.3 Total Bilirubin 0.4 Direct Bilirubin 0.00 Indirect Bilirubin 0.4 Aspartate Amino 119 H Transf (AST/SGOT) Alanine 130 H Aminotransferase (AL T/SGPT) Alkaline Phosphatase 162 #H B-Type Natriuretic 2210 H Peptide Total Protein 5.6 L Albumin 2.8 L Globulin 2.80 Albumin/Globulin 1.00 Ratio Bedside Glucose 93 86 Subjective 24 Hr Interval Summary Subjective hx not possible: pt non-verbal Exam/Review of Systems Vital Signs Vitals Vital Signs Date Temp Pulse Resp B/P (MAP) Pulse Ox O2 O2 Flow FiO2 Time Delivery Rate 09/14/18 92 24 158/101 100 Mechanical 11:00 (120) Ventilator 09/14/18 98.2 08:00 09/14/18 40 08:00 Intake and Output 09/13/18 09/13/18 09/14/18 1515:00 23:00 07:00 IntakeIntake Total 150.7 ml 375.55 ml 598.45 ml OutputOutput Total 455 ml 610 ml 1170 ml BalanceBalance -304.3 ml -234.45 ml -571.55 ml Exam sedated with propofol Eyes: nl conjunctiva Neck: supple Respiratory: diminished breath sounds Cardiovascular: regular rate and rhythm Gastrointestinal: soft Medications Medications Current Medications Albuterol (Ventolin Hfa) 4 puff Q2H RESP THERAPY PRN INH SHORTNESS OF BREATH; Start 09/09/18 at 16:30 Acetaminophen (Tylenol Liquid) 650 mg Q6H PRN NGT PAIN LEVEL 1-3 OR FEVER Last administered on 09/12/18at 09:30; Admin Dose 650 MG; Start 09/09/18 at 16:30 Morphine Sulfate (morphine) 2 mg Q4H PRN IV PAIN LEVEL 7-10 Last administered on 09/13/18at 10:11; Admin Dose 2 MG; Start 09/09/18 at 16:30 Pantoprazole (Protonix Iv) 40 mg DAILY@06 IV Last administered on 09/14/18at 05:31; Admin Dose 40 MG; Start 09/10/18 at 06:00 Piperacillin Sod/ Tazobactam Sod 100 ml @ 200 mls/hr Q8 IVPB Last administered on 09/14/18at 05:32; Admin Dose 200 MLS/HR; Start 09/09/18 at 22:00 Potassium Chloride (Potassium Chloride Pwd/Soln) 20 meq PER PROTOCOL PRN PO POTASSIUM REPLACEMENT PROTOCOL Last administered on 09/12/18at 16:13; Admin Dose 20 MEQ; Start 09/10/18 at 09:00 Potassium Chloride (Potassium Chloride Pwd/Soln) 30 meq PER PROTOCOL PRN PO POTASSIUM REPLACEMENT PROTOCOL Last administered on 09/13/18at 06:32; Admin Dose 30 MEQ; Start 09/10/18 at 09:00 Potassium Chloride (Potassium Chloride Pwd/Soln) 40 meq PER PROTOCOL PRN PO POTASSIUM REPLACEMENT PROTOCOL; Start 09/10/18 at 09:00 Insulin Aspart (Novolog Insulin Pen) NOVOLOG *MILD* ALGORI... Q4 SC ; Start 09/12/18 at 05:00 Miscellaneous Information 1 ea NOTE XX ; Start 09/12/18 at 04:30 Glucose (Glutose) 15 gm Q15M PRN PO DECREASED GLUCOSE; Start 09/12/18 at 04:30 Glucose (Glutose) 22.5 gm Q15M PRN PO DECREASED GLUCOSE; Start 09/12/18 at 04:30 Dextrose (D50w Syringe) 25 ml Q15M PRN IV DECREASED GLUCOSE; Start 09/12/18 at 04:30 Dextrose (D50w Syringe) 50 ml Q15M PRN IV DECREASED GLUCOSE; Start 09/12/18 at 04:30 Glucagon (Glucagen) 1 mg Q15M PRN IM DECREASED GLUCOSE; Start 09/12/18 at 04:30 Glucose (Glutose) 15 gm Q15M PRN BUCCAL DECREASED GLUCOSE; Start 09/12/18 at 04:30 Albuterol (Ventolin Hfa) 4 puff Q6H RESP THERAPY INH Last administered on 09/14/18 08:29; Admin Dose 4 PUFF; Start 09/12/18 at 20:00 Lorazepam (Ativan) 1 mg Q4H PRN IV agitation, anxiety; Start 09/13/18 at 11:00 Propofol 100 ml @ 1.95 mls/hr Q12H IV Last administered on 09/14/18at 03:59; Admin Dose 17.55 MLS/HR; Start 09/13/18 at 11:00 Furosemide (Lasix) 20 mg DAILY@0600 IV Last administered on 09/14/18at 05:32; Admin Dose 20 MG; Start 09/14/18 at 06:00 Dexmedetomidine HCl 200 mcg/ Sodium Chloride 50 ml @ 0 mls/hr TITRATE IV ; Start 09/13/18 at 16:30 Potassium Chloride 100 ml @ 50 mls/hr Q2H IVPB Last administered on 09/14/18at 11:30; Admin Dose 50 MLS/HR; Start 09/14/18 at 09:00; Stop 09/14/18 at 12:59 Aspirin (Aspirin) 81 mg DAILY NGT Last administered on 09/14/18 09:25; Admin Dose 81 MG; Start 09/14/18 at 09:30 Carvedilol (Coreg) 3.125 mg BID NGT Last administered on 09/14/18 11:33; Admin Dose 3.125 MG; Start 09/14/18 at 11:00 NILS MONTANEZ Sep 14, 2018 11:54
[2018-09-14] MEDS: hydrALAzine 20 MG INJ IV PRN (13:05)
[2018-09-14] MEDS: DEXMEDETOMIDINE HCL 200 MCG in SOD CHLORIDE 0.9% 48 ML IV SCH ×2 (14:18→22:44)
--- NOTE | 2018-09-14 15:37 | PN ---
Date/Time of Note Date/Time of Note DATE: 09/14/18 TIME: 15:37 Assessment/Plan VTE Prophylaxis Risk score (from Nsg)>0 risk: 12 SCD applied (from Nsg): Yes Pharmacological prophylaxis: heparin Lines/Catheters IV Catheter Type (from Nrsg): Central Line Central line still needed: Yes Urinary Cath still in place: Yes Reason Cath still needed: terminal illness/intractable pain Assessment/Plan Assessment/Plan 1. Vfib Cardiac arrest with ROSC s/p hypothermia protocol - Cardiology on board and appreciate consultation. Will continue current treatment with goal K >4 and Mg >2 - After being found down in Vfib arrest, patient underwent ACLS with 4 rounds of epi, Amiodarone x1, bicarb with ROSC. Patient noted with hypokalemia with K 2.1 at time of admission - ECHO reviewed and patient with poor EF 20%. Will need to reassess when condition improves 2. Septic shock secondary to aspiration pneumonia - CXR results show slight progression of right pneumonia - Nebs PRN - Broad spectrum antibiotics on board - Lactic acid normalized 3. Acute hypoxic respiratory failure on mechanical ventilation - Pulmonology on board for ventilator management and appreciate consultation. too agitated this am to be weaned and started on precedex. Will continue attempts to wean 4. Transaminitis- improving - most likely secondary to hypoperfusion - trending down 5. HTN - started on BB per Cardiology 6. Hypokalemia- improving - will continue replacing with goal >4 7. JULISSA- improving - Nephrology consultation appreciated. continue on lasix and off IVF 8. Disposition - Patient switched to Precedex since agitated every time she is weaned off propofol. Will attempt SBT in the am - continue monitoring in ICU >30 minutes of critical care time spent with patient and family at bedside Result Diagram: 09/14/18 0400 09/14/18 0400 Results 24hrs Laboratory Tests Test 09/13/18 16:40 09/13/18 20:54 09/14/18 01:50 09/14/18 04:00 Bedside Glucose 113 89 94 White Blood Count 7.9 Red Blood Count 2.92 L Hemoglobin 8.9 L Hematocrit 26.9 L Mean Corpuscular 92.1 Volume Mean Corpuscular 30.5 Hemoglobin Mean Corpuscular 33.1 Hemoglobin Concent Red Cell 14.6 H Distribution Width Platelet Count 84 L Mean Platelet Volume 11.6 H Immature 1.600 H Granulocytes % Neutrophils % Segmented 77 Neutrophils % (Manual) Band Neutrophils % 7 H (Manual) Lymphocytes % Lymphocytes % 12 L (Manual) Reactive Lymphocytes 1 H % (Manual) Monocytes % Monocytes % (Manual) 1 Eosinophils % Eosinophils % 2 (Manual) Basophils % Nucleated Red Blood 1 H Cells % Immature 0.130 H Granulocytes # Neutrophils # Neutrophils # 6.1 (Manual) Band Neutrophils # 0.5 Lymphocytes (Manual) 0.9 Lymphocytes # Reactive Lymphocytes 0.0 # Monocytes # Monocytes # (Manual) 0.0 L Eosinophils # Basophils # Nucleated Red Blood Cells # Platelet Estimate DECREASED Giant Platelets 2 H Polychromasia 1+ Sodium Level 145 H Potassium Level 3.5 Chloride Level 108 Carbon Dioxide Level 30 Anion Gap 7 Blood Urea Nitrogen 28 H Creatinine 1.23 H Est Glomerular 53 L Filtrat Rate mL/min Glucose Level 109 Calcium Level 8.7 Magnesium Level 2.3 Total Bilirubin 0.4 Direct Bilirubin 0.00 Indirect Bilirubin 0.4 Aspartate Amino 119 H Transf (AST/SGOT) Alanine 130 H Aminotransferase (AL T/SGPT) Alkaline Phosphatase 162 #H B-Type Natriuretic 2210 H Peptide Total Protein 5.6 L Albumin 2.8 L Globulin 2.80 Albumin/Globulin 1.00 Ratio Test 09/14/18 04:53 09/14/18 09:20 09/14/18 12:46 Bedside Glucose 93 86 91 Subjective 24 Hr Interval Summary Free Text/Dictation Patient following commands off sedation but getting agitated and placed on Precedex. No acute overnight events. Family at bedside. Exam/Review of Systems Vital Signs Vitals Vital Signs Date Temp Pulse Resp B/P (MAP) Pulse Ox O2 O2 Flow FiO2 Time Delivery Rate 09/14/18 99.7 86 20 147/72 100 Mechanical 12:00 (97) Ventilator 09/14/18 30 08:00 Intake and Output 09/13/18 09/13/18 09/14/18 1515:00 23:00 07:00 IntakeIntake Total 150.7 ml 375.55 ml 598.45 ml OutputOutput Total 455 ml 610 ml 1170 ml BalanceBalance -304.3 ml -234.45 ml -571.55 ml Exam General: Remains intubated and awake. opening eyes and following some commands Neck: Supple with full range of motion Lungs: Diminished with coarse breath sounds. no wheezing appreciated Heart: Normal S1-S2, Regular rate and rhythm. no murmurs Abdomen: Soft , nontender to palpation, nondistended, No guarding no rebound tenderness Extremities: Normal to inspection, no edema no cyanosis Neurologic: pupils reactive, following commands. Medications Medications Current Medications Albuterol (Ventolin Hfa) 4 puff Q2H RESP THERAPY PRN INH SHORTNESS OF BREATH; Start 09/09/18 at 16:30 Acetaminophen (Tylenol Liquid) 650 mg Q6H PRN NGT PAIN LEVEL 1-3 OR FEVER Last administered on 09/12/18at 09:30; Admin Dose 650 MG; Start 09/09/18 at 16:30 Morphine Sulfate (morphine) 2 mg Q4H PRN IV PAIN LEVEL 7-10 Last administered on 09/13/18at 10:11; Admin Dose 2 MG; Start 09/09/18 at 16:30 Pantoprazole (Protonix Iv) 40 mg DAILY@06 IV Last administered on 09/14/18at 05:31; Admin Dose 40 MG; Start 09/10/18 at 06:00 Piperacillin Sod/ Tazobactam Sod 100 ml @ 200 mls/hr Q8 IVPB Last administered on 09/14/18at 14:13; Admin Dose 200 MLS/HR; Start 09/09/18 at 22:00 Potassium Chloride (Potassium Chloride Pwd/Soln) 20 meq PER PROTOCOL PRN PO POTASSIUM REPLACEMENT PROTOCOL Last administered on 09/12/18at 16:13; Admin Dose 20 MEQ; Start 09/10/18 at 09:00 Potassium Chloride (Potassium Chloride Pwd/Soln) 30 meq PER PROTOCOL PRN PO POTASSIUM REPLACEMENT PROTOCOL Last administered on 09/13/18at 06:32; Admin Dose 30 MEQ; Start 09/10/18 at 09:00 Potassium Chloride (Potassium Chloride Pwd/Soln) 40 meq PER PROTOCOL PRN PO POTASSIUM REPLACEMENT PROTOCOL; Start 09/10/18 at 09:00 Insulin Aspart (Novolog Insulin Pen) NOVOLOG *MILD* ALGORI... Q4 SC ; Start 09/12/18 at 05:00 Miscellaneous Information 1 ea NOTE XX ; Start 09/12/18 at 04:30 Glucose (Glutose) 15 gm Q15M PRN PO DECREASED GLUCOSE; Start 09/12/18 at 04:30 Glucose (Glutose) 22.5 gm Q15M PRN PO DECREASED GLUCOSE; Start 09/12/18 at 04:30 Dextrose (D50w Syringe) 25 ml Q15M PRN IV DECREASED GLUCOSE; Start 09/12/18 at 04:30 Dextrose (D50w Syringe) 50 ml Q15M PRN IV DECREASED GLUCOSE; Start 09/12/18 at 04:30 Glucagon (Glucagen) 1 mg Q15M PRN IM DECREASED GLUCOSE; Start 09/12/18 at 04:30 Glucose (Glutose) 15 gm Q15M PRN BUCCAL DECREASED GLUCOSE; Start 09/12/18 at 04:30 Albuterol (Ventolin Hfa) 4 puff Q6H RESP THERAPY INH Last administered on 09/14/18 13:29; Admin Dose 4 PUFF; Start 09/12/18 at 20:00 Lorazepam (Ativan) 1 mg Q4H PRN IV agitation, anxiety; Start 09/13/18 at 11:00 Propofol 100 ml @ 1.95 mls/hr Q12H IV Last administered on 09/14/18at 03:59; Admin Dose 17.55 MLS/HR; Start 09/13/18 at 11:00 Furosemide (Lasix) 20 mg DAILY@0600 IV Last administered on 09/14/18 05:32; Admin Dose 20 MG; Start 09/14/18 at 06:00 Dexmedetomidine HCl 200 mcg/ Sodium Chloride 50 ml @ 0 mls/hr TITRATE IV Last administered on 09/14/18 14:18; Admin Dose 3.25 MLS/HR; Start 09/13/18 at 16:30 Aspirin (Aspirin) 81 mg DAILY NGT Last administered on 09/14/18at 09:25; Admin Dose 81 MG; Start 09/14/18 at 09:30 Carvedilol (Coreg) 3.125 mg BID NGT Last administered on 09/14/18 11:33; Admin Dose 3.125 MG; Start 09/14/18 at 11:00 Hydralazine HCl (Apresoline) 10 mg Q4H PRN IV SBP ABOVE 160 Last administered on 09/14/18 13:05; Admin Dose 10 MG; Start 09/14/18 at 12:00 OZZIE ALVAREZ MD Sep 14, 2018 15:37
--- NOTE | 2018-09-14 20:06 | NUR ---
END OF SHIFT SUMMARY PATIENT PLACED ON SEDATION VACATION AT 0830. ABLE TO FOLLOW COMMANDS. HOWEVER, PATIENT BECAME AGITATED APPROXIMATELY 1330, AND PLACED BACK ON PROPOFOL. PRECEDEX INITIATED, AND PATIENT SOON AFTER TAKEN OFF PROPOFOL. PATIENT BEHAVIOR MUCH MORE CALM -- THIS RN OBSERVED PATIENT WATCHING VIDEOS ON CELL PHONE. Tube feedings re-initiated, and titrated up to goal rate. Urine output as charted. Rectal tube in place, and continues to have diarrhea-like output. Skin/wound care provided. No new development of wounds. Patient turned/repositioned Q2H per protocol. Comfort and safety measures/ fall precautions in place. Plan for sedation vacation, and possible CPAP trial tomorrow. Daughters at bedside throughout shift. Patient and daughters updated on patient's status, and plan of care. All of patient's needs met, and no acute distress/events. Endorsed care to Susy DELGADO.
[2018-09-15] VITALS (35 sets, daily range): BP systolic 120–168; BP diastolic 60–82; PULSE 45–66; RESP 15–38
[2018-09-15] MEDS: INSULIN ASPART [NOVOLOG] 3 ML PEN SC SCH ×2 (01:00→05:00)
[2018-09-15] MEDS: ALBUTEROL HFA 8 GM INHALER INH SCH ×4 (01:17→19:18)
[2018-09-15] MEDS: DEXMEDETOMIDINE HCL 200 MCG in SOD CHLORIDE 0.9% 48 ML IV SCH ×4 (01:54→23:52)
--- NOTE | 2018-09-15 05:32 | NUR ---
EOSS: Pt remains orally intubated , sedated with Precedex drip , increased rate but pt. still agitated, called chrystal Blanc to restart Propofol drip. Spoke to family (daughters)and explain that pt was very agitated and need to add Propofol at a low dose. pt more calm and breathing easy, no SOB, vital signs within range, SB per vehicle monitor technician rate dropped to the 40's asymptomatic . TF tolerated satisfactorily , sahni with adeq u/o , no signs of pain noted, turned and repositioned, VAP care done ,complete bedbath rendered .
[2018-09-15] MEDS: PANTOPRAZOLE 40 MG INJ IV SCH (06:12)
[2018-09-15] MEDS: FUROSEMIDE 20 MG INJ IV SCH (06:12)
[2018-09-15] MEDS: PIPER-TAZO 3.375 GM IV (PMX) 100 ML IVPB SCH ×3 (06:12→21:33)
[2018-09-15] MEDS: POTASSIUM CHLORIDE 20 MEQ POWDER FOR ORAL SOLN PO PRN ×2 (08:53→15:09)
[2018-09-15] MEDS: ASPIRIN 81 MG TAB NGT SCH (08:53)
--- NOTE | 2018-09-15 08:55 | PN ---
Date/Time of Note Date/Time of Note DATE: 09/15/18 TIME: 08:55 Assessment/Plan VTE Prophylaxis Risk score (from Nsg)>0 risk: 8 SCD applied (from Nsg): Yes Pharmacological prophylaxis: heparin Lines/Catheters IV Catheter Type (from Nrsg): Central Line Central line still needed: Yes Urinary Cath still in place: Yes Reason Cath still needed: terminal illness/intractable pain Assessment/Plan Assessment/Plan 1. Acute hypoxic respiratory failure on mechanical ventilation - Pulm on board and appreciate consultation - Continue daily sedation vacations and CPAP trials - Patient initially does well once weaned off sedation but then gets very agitated and placed back on sedation. On Precedex this am and remains calm but lethargic 2. Vfib Cardiac arrest with ROSC s/p hypothermia protocol - Cardiology on board and appreciate consultation. Will continue current treatment with goal K >4 and Mg >2 - After being found down in Vfib arrest, patient underwent ACLS with 4 rounds of epi, Amiodarone x1, bicarb with ROSC. Patient noted with hypokalemia with K 2.1 at time of admission - ECHO reviewed and patient with poor EF 20%. Will need to reassess when condition improves 3. Septic shock secondary to aspiration pneumonia- improving - Off pressor support and will wean from vent as tolerated - Continue antibiotics and neb treatments - CXR results show slight progression of right pneumonia - Nebs PRN - Lactic acid normalized 4. Transaminitis- improving - most likely secondary to hypoperfusion - trending down 5. HTN 6. Hypokalemia- improving - will continue replacing with goal >4 7. JULISSA- improving - Nephrology consultation appreciated. continue on lasix and off IVF 8. Disposition - Continue monitoring in ICU. Will attempt daily sedation holidays and CPAP trials >35 minutes of critical care time spent with patient and family at bedside Result Diagram: 09/15/18 0420 09/15/18 042 Results 24hrs Laboratory Tests Test 09/14/18 09:20 09/14/18 12:46 09/14/18 17:27 09/14/18 20:45 Bedside Glucose 86 91 102 107 Test 09/15/18 01:56 09/15/18 04:20 Bedside Glucose 91 White Blood Count 6.3 # Red Blood Count 2.95 L Hemoglobin 8.9 L Hematocrit 27.3 L Mean Corpuscular 92.5 Volume Mean Corpuscular 30.2 Hemoglobin Mean Corpuscular 32.6 Hemoglobin Concent Red Cell 14.2 Distribution Width Platelet Count 81 L Mean Platelet Volume 12.1 H Immature 2.200 H Granulocytes % Neutrophils % Segmented 65 Neutrophils % (Manual) Band Neutrophils % 5 H (Manual) Lymphocytes % Lymphocytes % 23 (Manual) Monocytes % Monocytes % (Manual) 5 Eosinophils % Eosinophils % 2 (Manual) Basophils % Nucleated Red Blood 4 H Cells % Immature 0.140 H Granulocytes # Neutrophils # Neutrophils # 4.1 (Manual) Band Neutrophils # 0.3 Lymphocytes (Manual) 1.4 Lymphocytes # Monocytes # Monocytes # (Manual) 0.3 Eosinophils # Basophils # Nucleated Red Blood Cells # Platelet Estimate DECREASED Giant Platelets 2 H Sodium Level 144 Potassium Level 3.5 Chloride Level 110 Carbon Dioxide Level 29 Anion Gap 5 Blood Urea Nitrogen 32 H Creatinine 1.13 H Est Glomerular 59 L Filtrat Rate mL/min Glucose Level 95 Calcium Level 8.9 Magnesium Level 2.1 Total Bilirubin 0.5 Direct Bilirubin 0.00 Indirect Bilirubin 0.5 Aspartate Amino 85 H Transf (AST/SGOT) Alanine 114 H Aminotransferase (AL T/SGPT) Alkaline Phosphatase 182 H Total Protein 5.7 L Albumin 2.9 L Globulin 2.80 Albumin/Globulin 1.03 Ratio Subjective 24 Hr Interval Summary Free Text/Dictation Patient opening eyes and following simple commands. Still on Precedex so lethargic. Plans for sedation vacation and CPAP trial once more awake. Son in law at bedside and all questions addressed. Exam/Review of Systems Vital Signs Vitals Vital Signs Date Temp Pulse Resp B/P (MAP) Pulse Ox O2 O2 Flow FiO2 Time Delivery Rate 09/15/18 30 08:00 09/15/18 46 20 97 07:51 09/15/18 97.8 168/80 Mechanical 04:00 (109) Ventilator Intake and Output 09/14/18 09/14/18 09/15/18 1515:00 23:00 07:00 IntakeIntake Total 339.925 ml 371.915 ml 66.96 ml OutputOutput Total 995 ml 780 ml 100 ml BalanceBalance -655.075 ml -408.085 ml -33.04 ml Exam General: Remains intubated and awake. opening eyes and following some commands Neck: Supple with full range of motion Lungs: Diminished breath sounds. no wheezing appreciated Heart: Normal S1-S2, Regular rhythm, bradycardia. no murmurs Abdomen: Soft , nontender to palpation, nondistended, No guarding no rebound tenderness Extremities: Normal to inspection, no edema no cyanosis Neurologic: pupils reactive, following commands. Medications Medications Current Medications Albuterol (Ventolin Hfa) 4 puff Q2H RESP THERAPY PRN INH SHORTNESS OF BREATH; Start 09/09/18 at 16:30 Acetaminophen (Tylenol Liquid) 650 mg Q6H PRN NGT PAIN LEVEL 1-3 OR FEVER Last administered on 09/12/18at 09:30; Admin Dose 650 MG; Start 09/09/18 at 16:30 Morphine Sulfate (morphine) 2 mg Q4H PRN IV PAIN LEVEL 7-10 Last administered on 09/13/18at 10:11; Admin Dose 2 MG; Start 09/09/18 at 16:30 Pantoprazole (Protonix Iv) 40 mg DAILY@06 IV Last administered on 09/15/18at 06:12; Admin Dose 40 MG; Start 09/10/18 at 06:00 Piperacillin Sod/ Tazobactam Sod 100 ml @ 200 mls/hr Q8 IVPB Last administered on 09/15/18at 06:12; Admin Dose 200 MLS/HR; Start 09/09/18 at 22:00 Potassium Chloride (Potassium Chloride Pwd/Soln) 20 meq PER PROTOCOL PRN PO POT ASSIUM REPLACEMENT PROTOCOL Last administered on 09/12/18at 16:13; Admin Dose 20 MEQ; Start 09/10/18 at 09:00 Potassium Chloride (Potassium Chloride Pwd/Soln) 30 meq PER PROTOCOL PRN PO POTASSIUM REPLACEMENT PROTOCOL Last administered on 09/15/18at 08:53; Admin Dose 30 MEQ; Start 09/10/18 at 09:00 Potassium Chloride (Potassium Chloride Pwd/Soln) 40 meq PER PROTOCOL PRN PO POTASSIUM REPLACEMENT PROTOCOL; Start 09/10/18 at 09:00 Miscellaneous Information 1 ea NOTE XX ; Start 09/12/18 at 04:30 Glucose (Glutose) 15 gm Q15M PRN PO DECREASED GLUCOSE; Start 09/12/18 at 04:30 Glucose (Glutose) 22.5 gm Q15M PRN PO DECREASED GLUCOSE; Start 09/12/18 at 04:30 Dextrose (D50w Syringe) 25 ml Q15M PRN IV DECREASED GLUCOSE; Start 09/12/18 at 04:30 Dextrose (D50w Syringe) 50 ml Q15M PRN IV DECREASED GLUCOSE; Start 09/12/18 at 04:30 Glucagon (Glucagen) 1 mg Q15M PRN IM DECREASED GLUCOSE; Start 09/12/18 at 04:30 Glucose (Glutose) 15 gm Q15M PRN BUCCAL DECREASED GLUCOSE; Start 09/12/18 at 04:30 Albuterol (Ventolin Hfa) 4 puff Q6H RESP THERAPY INH Last administered on 09/15/18at 07:59; Admin Dose 4 PUFF; Start 09/12/18 at 20:00 Lorazepam (Ativan) 1 mg Q4H PRN IV agitation, anxiety; Start 09/13/18 at 11:00 Propofol 100 ml @ 1.95 mls/hr Q12H IV Last administered on 09/14/18at 22:44; Admin Dose 1.95 MLS/HR; Start 09/13/18 at 11:00 Furosemide (Lasix) 20 mg DAILY@0600 IV Last administered on 09/15/18 06:12; Admin Dose 20 MG; Start 09/14/18 at 06:00 Dexmedetomidine HCl 200 mcg/ Sodium Chloride 50 ml @ 0 mls/hr TITRATE IV Last administered on 09/15/18 06:42; Admin Dose 13 MLS/HR; Start 09/13/18 at 16:30 Aspirin (Aspirin) 81 mg DAILY NGT Last administered on 09/15/18 08:53; Admin Dose 81 MG; Start 09/14/18 at 09:30 Carvedilol (Coreg) 3.125 mg BID NGT Last administered on 09/14/18at 11:33; Admin Dose 3.125 MG; Start 09/14/18 at 11:00 Hydralazine HCl (Apresoline) 10 mg Q4H PRN IV SBP ABOVE 160 Last administered on 09/14/18 13:05; Admin Dose 10 MG; Start 09/14/18 at 12:00 OZZIE ALVAREZ MD Sep 15, 2018 08:55
--- NOTE | 2018-09-15 10:35 | CONS ---
Date/Time of Note Date/Time of Note DATE: 09/15/18 TIME: 10:32 Assessment/Plan Assessment/Plan Assessment/Plan Chest x-ray showing persistent right-sided infiltrates with slight interval improvement. Ventilator setting; AC of 20, tidal volume 500, PEEP of 5, 30% FiO2. Patient is currently on Precedex 0.5 mics per kilogram per hour. Off propofol. Assessment and recommendations; 1. Patient admitted with cardiac arrest due to V. fib likely precipitated by hypokalemia. Status post hypothermia protocol. 2. Likely some element of anoxic encephalopathy, patient exhibiting waxing and waning mental status. 3. Extensive right-sided aspiration pneumonia. Significant improvement in oxygenation. 4. Acute renal injury with continually improving renal function. Hold Precedex. Once patient is awake he will be evaluated for possible weaning from ventilator. Continue current other supportive measures. Obtain follow-up chest x-ray 24 hours. I did have a detailed discussion with the patient's daughter at bedside and answered all her questions. 35 minutes of critical care time was spent evaluating the patient. Result Diagram: 09/15/18 0420 09/15/18 0420 Results 24hrs Laboratory Tests Test 09/14/18 12:46 09/14/18 17:27 09/14/18 20:45 09/15/18 01:56 Bedside Glucose 91 102 107 91 Test 09/15/18 04:20 White Blood Count 6.3 # Red Blood Count 2.95 L Hemoglobin 8.9 L Hematocrit 27.3 L Mean Corpuscular 92.5 Volume Mean Corpuscular 30.2 Hemoglobin Mean Corpuscular 32.6 Hemoglobin Concent Red Cell 14.2 Distribution Width Platelet Count 81 L Mean Platelet Volume 12.1 H Immature 2.200 H Granulocytes % Neutrophils % Segmented 65 Neutrophils % (Manual) Band Neutrophils % 5 H (Manual) Lymphocytes % Lymphocytes % 23 (Manual) Monocytes % Monocytes % (Manual) 5 Eosinophils % Eosinophils % 2 (Manual) Basophils % Nucleated Red Blood 4 H Cells % Immature 0.140 H Granulocytes # Neutrophils # Neutrophils # 4.1 (Manual) Band Neutrophils # 0.3 Lymphocytes (Manual) 1.4 Lymphocytes # Monocytes # Monocytes # (Manual) 0.3 Eosinophils # Basophils # Nucleated Red Blood Cells # Platelet Estimate DECREASED Giant Platelets 2 H Sodium Level 144 Potassium Level 3.5 Chloride Level 110 Carbon Dioxide Level 29 Anion Gap 5 Blood Urea Nitrogen 32 H Creatinine 1.13 H Est Glomerular 59 L Filtrat Rate mL/min Glucose Level 95 Calcium Level 8.9 Magnesium Level 2.1 Total Bilirubin 0.5 Direct Bilirubin 0.00 Indirect Bilirubin 0.5 Aspartate Amino 85 H Transf (AST/SGOT) Alanine 114 H Aminotransferase (AL T/SGPT) Alkaline Phosphatase 182 H Total Protein 5.7 L Albumin 2.9 L Globulin 2.80 Albumin/Globulin 1.03 Ratio Consultation Date/Type/Reason Admit Date/Time Sep 09, 2018 at 16:10 Initial Consult Date 09/10/18 Type of Consult Pulmonary/critical care History of presenting illness; patient is a 63-year-old lady who was brought into the hospital after found unresponsive. Patient underwent CPR and was in V. fib. Patient was successfully resuscitated intubated and transferred to ICU. By the time I saw her, patient is on mechanical ventilation and on hypothermia protocol. Patient also has remained hypotensive and on high-dose pressor support. Past medical history; 1. Hypertension. Medications; reviewed. Patient is currently on Versed 2 mg/h, fentanyl 50 mics per hour, Levophed 24 mics per minute, insulin drip 0.5 units/h, patient also is on hypothermia protocol with dialysis per protocol. Allergies; unknown. Family history, social history, occupational history is not available. Review of system; unable to be obtained. General exam; elderly female, orally intubated, paralyzed and sedated. Currently no distress. Requesting Provider: OZZIE ALVAREZ MD 24 HR Interval Summary Free Text/Dictation Patient's condition is critical but stable. Exhibiting waxing and waning mental status. Patient however has remained hemodynamically stable. General exam; elderly female, orally intubated, currently under sedation. Exam/Review of Systems Vital Signs Vitals Vital Signs Date Temp Pulse Resp B/P (MAP) Pulse Ox O2 O2 Flow FiO2 Time Delivery Rate 09/15/18 52 20 151/74 98 Mechanical 10:00 (99) Ventilator 09/15/18 98.0 08:00 09/15/18 30 08:00 Intake and Output 09/14/18 09/14/18 09/15/18 1515:00 23:00 07:00 IntakeIntake Total 339.925 ml 371.915 ml 81.86 ml OutputOutput Total 995 ml 780 ml 100 ml BalanceBalance -655.075 ml -408.085 ml -18.14 ml Exam HEENT exam; supple neck, no JVD. No lymphadenopathy. Midline trachea. No thyromegaly. Orally intubated. Patient has fair dentition. Pupils are equal bilaterally. Chest exam; diminished but clear breath sounds. S1-S2 audible, no murmurs. Regular rhythm. Abdomen exam; soft, no organomegaly. Nondistended. Bowel sounds audible. Extremity exam; edema clubbing. Pulses 1+. CENTRAL PROCESSING TECH exam; she is lethargic. Medications Medications Current Medications Albuterol (Ventolin Hfa) 4 puff Q2H RESP THERAPY PRN INH SHORTNESS OF BREATH; Start 09/09/18 at 16:30 Acetaminophen (Tylenol Liquid) 650 mg Q6H PRN NGT PAIN LEVEL 1-3 OR FEVER Last administered on 09/12/18at 09:30; Admin Dose 650 MG; Start 09/09/18 at 16:30 Morphine Sulfate (morphine) 2 mg Q4H PRN IV PAIN LEVEL 7-10 Last administered on 09/13/18at 10:11; Admin Dose 2 MG; Start 09/09/18 at 16:30 Pantoprazole (Protonix Iv) 40 mg DAILY@06 IV Last administered on 09/15/18 06:12; Admin Dose 40 MG; Start 09/10/18 at 06:00 Piperacillin Sod/ Tazobactam Sod 100 ml @ 200 mls/hr Q8 IVPB Last administered on 09/15/18at 06:12; Admin Dose 200 MLS/HR; Start 09/09/18 at 22:00 Potassium Chloride (Potassium Chloride Pwd/Soln) 20 meq PER PROTOCOL PRN PO POTASSIUM REPLACEMENT PROTOCOL Last administered on 09/12/18at 16:13; Admin Dose 20 MEQ; Start 09/10/18 at 09:00 Potassium Chloride (Potassium Chloride Pwd/Soln) 30 meq PER PROTOCOL PRN PO POTASSIUM REPLACEMENT PROTOCOL Last administered on 09/15/18at 08:53; Admin Dose 30 MEQ; Start 09/10/18 at 09:00 Potassium Chloride (Potassium Chloride Pwd/Soln) 40 meq PER PROTOCOL PRN PO POTASSIUM REPLACEMENT PROTOCOL; Start 09/10/18 at 09:00 Miscellaneous Information 1 ea NOTE XX ; Start 09/12/18 at 04:30 Glucose (Glutose) 15 gm Q15M PRN PO DECREASED GLUCOSE; Start 09/12/18 at 04:30 Glucose (Glutose) 22.5 gm Q15M PRN PO DECREASED GLUCOSE; Start 09/12/18 at 04:30 Dextrose (D50w Syringe) 25 ml Q15M PRN IV DECREASED GLUCOSE; Start 09/12/18 at 04:30 Dextrose (D50w Syringe) 50 ml Q15M PRN IV DECREASED GLUCOSE; Start 09/12/18 at 04:30 Glucagon (Glucagen) 1 mg Q15M PRN IM DECREASED GLUCOSE; Start 09/12/18 at 04:30 Glucose (Glutose) 15 gm Q15M PRN BUCCAL DECREASED GLUCOSE; Start 09/12/18 at 04:30 Albuterol (Ventolin Hfa) 4 puff Q6H RESP THERAPY INH Last administered on 09/15/18at 07:59; Admin Dose 4 PUFF; Start 09/12/18 at 20:00 Lorazepam (Ativan) 1 mg Q4H PRN IV agitation, anxiety; Start 09/13/18 at 11:00 Propofol 100 ml @ 1.95 mls/hr Q12H IV Last administered on 09/14/18at 22:44; Admin Dose 1.95 MLS/HR; Start 09/13/18 at 11:00 Furosemide (Lasix) 20 mg DAILY@0600 IV Last administered on 09/15/18at 06:12; Admin Dose 20 MG; Start 09/14/18 at 06:00 Dexmedetomidine HCl 200 mcg/ Sodium Chloride 50 ml @ 0 mls/hr TITRATE IV Last administered on 09/15/18at 06:42; Admin Dose 13 MLS/HR; Start 09/13/18 at 16:30 Aspirin (Aspirin) 81 mg DAILY NGT Last administered on 09/15/18at 08:53; Admin Dose 81 MG; Start 09/14/18 at 09:30 Carvedilol (Coreg) 3.125 mg BID NGT Last administered on 09/14/18at 11:33; Admin Dose 3.125 MG; Start 09/14/18 at 11:00 Hydralazine HCl (Apresoline) 10 mg Q4H PRN IV SBP ABOVE 160 Last administered on 09/14/18at 13:05; Admin Dose 10 MG; Start 09/14/18 at 12:00 ANABELLA LANTIGUA Sep 15, 2018 10:35
--- NOTE | 2018-09-15 12:55 | NUR ---
Decreased Urine Output Dr. Rm notified of decreased UOP of <0.5 ml/kg/hr. Pt. is normotensive, no signs of hypoperfusion. CVP trend is now 10 mmHg. Pt. is currently on 20 mg Lasix BID. No MIVF currently running. Free water flushes are 50 cc q 6 hr. Awaiting orders.
[2018-09-15] MEDS ORDERED: FUROSEMIDE 20 MG INJ IV ONE (15:00)
[2018-09-15] MEDS: PROPOFOL 100 ML IV SCH (17:44)
--- NOTE | 2018-09-15 18:25 | CONS ---
Date/Time of Note Date/Time of Note DATE: 09/15/18 TIME: 18:23 Assessment/Plan Assessment/Plan Hospital Course 1. Non oliguric Acute renal failure. 2. res faillure 3. V-fibrillation cardiac arrest with EF of 20%. 4. Shock secondary to cardiogenic likely/aspiration pneumonia. 5. Acute hypoxic respiratory failure, intubated. 6. Transaminitis. 7. Hypertension. plan bmp Result Diagram: 09/15/18 0420 09/15/18 1412 Results 24hrs Laboratory Tests Test 09/14/18 20:45 09/15/18 01:56 09/15/18 04:20 09/15/18 14:12 Bedside Glucose 107 91 White Blood Count 6.3 # Red Blood Count 2.95 L Hemoglobin 8.9 L Hematocrit 27.3 L Mean Corpuscular 92.5 Volume Mean Corpuscular 30.2 Hemoglobin Mean Corpuscular 32.6 Hemoglobin Concent Red Cell 14.2 Distribution Width Platelet Count 81 L Mean Platelet Volume 12.1 H Immature 2.200 H Granulocytes % Neutrophils % Segmented 65 Neutrophils % (Manual) Band Neutrophils % 5 H (Manual) Lymphocytes % Lymphocytes % 23 (Manual) Monocytes % Monocytes % (Manual) 5 Eosinophils % Eosinophils % 2 (Manual) Basophils % Nucleated Red Blood 4 H Cells % Immature 0.140 H Granulocytes # Neutrophils # Neutrophils # 4.1 (Manual) Band Neutrophils # 0.3 Lymphocytes (Manual) 1.4 Lymphocytes # Monocytes # Monocytes # (Manual) 0.3 Eosinophils # Basophils # Nucleated Red Blood Cells # Platelet Estimate DECREASED Giant Platelets 2 H Sodium Level 144 Potassium Level 3.5 3.7 Chloride Level 110 Carbon Dioxide Level 29 Anion Gap 5 Blood Urea Nitrogen 32 H Creatinine 1.13 H Est Glomerular 59 L Filtrat Rate mL/min Glucose Level 95 Calcium Level 8.9 Magnesium Level 2.1 Total Bilirubin 0.5 Direct Bilirubin 0.00 Indirect Bilirubin 0.5 Aspartate Amino 85 H Transf (AST/SGOT) Alanine 114 H Aminotransferase (AL T/SGPT) Alkaline Phosphatase 182 H Total Protein 5.7 L Albumin 2.9 L Globulin 2.80 Albumin/Globulin 1.03 Ratio Consultation Date/Type/Reason Admit Date/Time Sep 09, 2018 at 16:10 Initial Consult Date 09/10/18 Type of Consult doing fine no distress Requesting Provider: OZZIE ALVAREZ MD Exam/Review of Systems Vital Signs Vitals Vital Signs Date Temp Pulse Resp B/P (MAP) Pulse Ox O2 O2 Flow FiO2 Time Delivery Rate 09/15/18 54 20 147/71 99 Mechanical 18:00 (96) Ventilator 09/15/18 30 17:45 09/15/18 98.5 16:00 Intake and Output 09/14/18 09/14/18 09/15/18 1515:00 23:00 07:00 IntakeIntake Total 339.925 ml 371.915 ml 81.86 ml OutputOutput Total 995 ml 780 ml 100 ml BalanceBalance -655.075 ml -408.085 ml -18.14 ml Exam Neck: supple Respiratory: clear to auscultation Cardiovascular: regular rate and rhythm Gastrointestinal: soft Musculoskeletal: nl extremities to inspection Extremities: normal pulses Medications Medications Current Medications Albuterol (Ventolin Hfa) 4 puff Q2H RESP THERAPY PRN INH SHORTNESS OF BREATH; Start 09/09/18 at 16:30 Acetaminophen (Tylenol Liquid) 650 mg Q6H PRN NGT PAIN LEVEL 1-3 OR FEVER Last administered on 09/12/18 09:30; Admin Dose 650 MG; Start 09/09/18 at 16:30 Morphine Sulfate (morphine) 2 mg Q4H PRN IV PAIN LEVEL 7-10 Last administered on 09/13/18 10:11; Admin Dose 2 MG; Start 09/09/18 at 16:30 Pantoprazole (Protonix Iv) 40 mg DAILY@06 IV Last administered on 09/15/18 06:12; Admin Dose 40 MG; Start 09/10/18 at 06:00 Piperacillin Sod/ Tazobactam Sod 100 ml @ 200 mls/hr Q8 IVPB Last administered on 09/15/18 13:25; Admin Dose 200 MLS/HR; Start 09/09/18 at 22:00 Potassium Chloride (Potassium Chloride Pwd/Soln) 20 meq PER PROTOCOL PRN PO POTASSIUM REPLACEMENT PROTOCOL Last administered on 09/12/18 16:13; Admin Dose 20 MEQ; Start 09/10/18 at 09:00 Potassium Chloride (Potassium Chloride Pwd/Soln) 30 meq PER PROTOCOL PRN PO POTASSIUM REPLACEMENT PROTOCOL Last administered on 09/15/18 15:09; Admin Dose 30 MEQ; Start 09/10/18 at 09:00 Potassium Chloride (Potassium Chloride Pwd/Soln) 40 meq PER PROTOCOL PRN PO POTASSIUM REPLACEMENT PROTOCOL; Start 09/10/18 at 09:00 Miscellaneous Information 1 ea NOTE XX ; Start 09/12/18 at 04:30 Glucose (Glutose) 15 gm Q15M PRN PO DECREASED GLUCOSE; Start 09/12/18 at 04:30 Glucose (Glutose) 22.5 gm Q15M PRN PO DECREASED GLUCOSE; Start 09/12/18 at 04:30 Dextrose (D50w Syringe) 25 ml Q15M PRN IV DECREASED GLUCOSE; Start 09/12/18 at 04:30 Dextrose (D50w Syringe) 50 ml Q15M PRN IV DECREASED GLUCOSE; Start 09/12/18 at 04:30 Glucagon (Glucagen) 1 mg Q15M PRN IM DECREASED GLUCOSE; Start 09/12/18 at 04:30 Glucose (Glutose) 15 gm Q15M PRN BUCCAL DECREASED GLUCOSE; Start 09/12/18 at 04:30 Albuterol (Ventolin Hfa) 4 puff Q6H RESP THERAPY INH Last administered on 09/15/18at 13:59; Admin Dose 4 PUFF; Start 09/12/18 at 20:00 Lorazepam (Ativan) 1 mg Q4H PRN IV agitation, anxiety; Start 09/13/18 at 11:00 Propofol 100 ml @ 1.95 mls/hr Q12H IV Last administered on 09/15/18at 17:44; Admin Dose 1.95 MLS/HR; Start 09/13/18 at 11:00 Furosemide (Lasix) 20 mg DAILY@0600 IV Last administered on 09/15/18at 06:12; Admin Dose 20 MG; Start 09/14/18 at 06:00 Dexmedetomidine HCl 200 mcg/ Sodium Chloride 50 ml @ 0 mls/hr TITRATE IV Last administered on 09/15/18at 13:35; Admin Dose 4.88 MLS/HR; Start 09/13/18 at 16:30 Aspirin (Aspirin) 81 mg DAILY NGT Last administered on 09/15/18at 08:53; Admin Dose 81 MG; Start 09/14/18 at 09:30 Carvedilol (Coreg) 3.125 mg BID NGT Last administered on 09/14/18at 11:33; Admin Dose 3.125 MG; Start 09/14/18 at 11:00 Hydralazine HCl (Apresoline) 10 mg Q4H PRN IV SBP ABOVE 160 Last administered on 09/14/18at 13:05; Admin Dose 10 MG; Start 09/14/18 at 12:00 Hydralazine HCl (Apresoline) 10 mg Q4H PRN IV SBP >170; Start 09/15/18 at 15:00 KAT SNOW MD Sep 15, 2018 18:24
[2018-09-15] MEDS ORDERED: PHENYLephrine 20MG IN 250 ML 250 ML ONE (22:14)
[2018-09-16] VITALS (38 sets, daily range): BP systolic 119–170; BP diastolic 54–81; PULSE 53–99; RESP 12–36
[2018-09-16] MEDS: ALBUTEROL HFA 8 GM INHALER INH SCH ×4 (01:09→20:24)
[2018-09-16] MEDS: PROPOFOL 100 ML IV SCH (03:30)
[2018-09-16] MEDS: PANTOPRAZOLE 40 MG INJ IV SCH (05:10)
[2018-09-16] MEDS: PIPER-TAZO 3.375 GM IV (PMX) 100 ML IVPB SCH ×3 (05:10→21:09)
[2018-09-16] MEDS: FUROSEMIDE 20 MG INJ IV SCH (05:11)
--- NOTE | 2018-09-16 06:30 | NUR ---
END OF SHIFT REPORT NO ACUTE EVENTS OVER NIGHT. PT IS HYPER SENSITIVE TO ETT, REQUIRING INCREASE IN PROP OVER NIGHT. PT WAS RESTLESS AND BITING THE VENT. URINE OUTPUT WNL. VITALS WNL. BED BATH GIVEN AND ORAL CARE PROVIDED, TOLERATED WELL.
[2018-09-16] MEDS: POTASSIUM CHLORIDE 20 MEQ POWDER FOR ORAL SOLN PO PRN ×2 (06:41→23:38)
[2018-09-16] MEDS: DEXMEDETOMIDINE HCL 200 MCG in SOD CHLORIDE 0.9% 48 ML IV SCH ×4 (09:10→23:38)
[2018-09-16] MEDS: ASPIRIN 81 MG TAB NGT SCH (09:21)
[2018-09-16] MEDS: FENTAnyl (DRIP) 1000 mcg/100mL 100 ML IV SCH (09:42)
--- NOTE | 2018-09-16 09:55 | CONS ---
Date/Time of Note Date/Time of Note DATE: 09/16/18 TIME: 09:52 Consult Date/Type/Reason Admit Date/Time Sep 09, 2018 at 16:10 Initial Consult Date 09/10/18 Type of Consultation: Pulmonary ICU Requesting Provider: OZZIE ALVAREZ MD Subjective Patient opening eyes and following commands according to family. Currently she remains sedated having failed weaning trial previously. Currently no vasopressors. Objective Vital Signs Date Temp Pulse Resp B/P (MAP) Pulse Ox O2 O2 Flow FiO2 Time Delivery Rate 09/16/18 66 08:00 09/16/18 25 133/63 94 Mechanical 06:00 (86) Ventilator 09/16/18 30 04:50 09/16/18 98.6 04:00 Intake and Output 09/15/18 09/15/18 09/16/18 1515:00 23:00 07:00 IntakeIntake Total 750.26 ml 620.24 ml 656.31 ml OutputOutput Total 695 ml 1090 ml 283 ml BalanceBalance 55.26 ml -469.76 ml 373.31 ml Exam GENERAL: Elderly appearing lady on mechanical ventilation orally intubated. VITAL SIGNS: per chart NECK: Supple. No JVD or lymphadenopathy. CARDIAC EXAM: S1, S2. No added sounds or murmurs. CHEST: diminished air entry bilaterally ABDOMEN: Soft, nontender. No guarding or rebound. EXTREMITIES: No cyanosis, clubbing edema +1, NEUROLOGIC: Generalized weakness. Results/Medications Result Diagram: 09/16/18 0400 09/16/18 0400 Results 24 hrs Laboratory Tests Test 09/15/18 14:12 09/16/18 04:00 Potassium Level 3.7 3.2 L White Blood Count 7.1 Red Blood Count 2.92 L Hemoglobin 8.7 L Hematocrit 26.7 L Mean Corpuscular Volume 91.4 Mean Corpuscular Hemoglobin 29.8 Mean Corpuscular Hemoglobin Concent 32.6 Red Cell Distribution Width 14.3 Platelet Count 90 L Mean Platelet Volume 11.8 H Immature Granulocytes % 4.000 H Neutrophils % Segmented Neutrophils % (Manual) 66 Band Neutrophils % (Manual) 18 H Lymphocytes % Lymphocytes % (Manual) 9 L Monocytes % Monocytes % (Manual) 7 Eosinophils % Basophils % Nucleated Red Blood Cells % 0.4 H Immature Granulocytes # 0.280 H Neutrophils # Neutrophils # (Manual) 4.8 Band Neutrophils # 1.2 H Lymphocytes (Manual) 0.6 L Lymphocytes # Monocytes # Monocytes # (Manual) 0.4 Eosinophils # Basophils # Nucleated Red Blood Cells # Platelet Estimate DECREASED Giant Platelets 7 H Anisocytosis 1+ Microcytosis 1+ Ovalocytes 1+ Sodium Level 148 H Chloride Level 110 Carbon Dioxide Level 31 Anion Gap 7 Blood Urea Nitrogen 36 H Creatinine 1.06 H Est Glomerular Filtrat Rate mL/min > 60 Glucose Level 129 Calcium Level 8.6 Magnesium Level 2.1 Total Bilirubin 0.3 Direct Bilirubin 0.00 Indirect Bilirubin 0.3 Aspartate Amino Transf (AST/SGOT) 66 H Alanine Aminotransferase (ALT/SGPT) 101 H Alkaline Phosphatase 180 H Total Protein 5.7 L Albumin 2.8 L Globulin 2.90 Albumin/Globulin Ratio 0.96 Medications Current Medications Acetaminophen (Tylenol Liquid) 650 mg Q6H PRN NGT PAIN LEVEL 1-3 OR FEVER Last administered on 09/12/18 09:30; Admin Dose 650 MG; Start 09/09/18 at 16:30 Morphine Sulfate (morphine) 2 mg Q4H PRN IV PAIN LEVEL 7-10 Last administered on 09/13/18 10:11; Admin Dose 2 MG; Start 09/09/18 at 16:30 Pantoprazole (Protonix Iv) 40 mg DAILY@06 IV Last administered on 09/16/18 05:10; Admin Dose 40 MG; Start 09/10/18 at 06:00 Piperacillin Sod/ Tazobactam Sod 100 ml @ 200 mls/hr Q8 IVPB Last administered on 09/16/18 05:10; Admin Dose 200 MLS/HR; Start 09/09/18 at 22:00 Potassium Chloride (Potassium Chloride Pwd/Soln) 20 meq PER PROTOCOL PRN PO POTASSIUM REPLACEMENT PROTOCOL Last administered on 09/12/18 16:13; Admin Dose 20 MEQ; Start 09/10/18 at 09:00 Potassium Chloride (Potassium Chloride Pwd/Soln) 30 meq PER PROTOCOL PRN PO POTASSIUM REPLACEMENT PROTOCOL Last administered on 09/15/18 15:09; Admin Dose 30 MEQ; Start 09/10/18 at 09:00 Potassium Chloride (Potassium Chloride Pwd/Soln) 40 meq PER PROTOCOL PRN PO POTASSIUM REPLACEMENT PROTOCOL Last administered on 09/16/18 06:41; Admin Dose 40 MEQ; Start 09/10/18 at 09:00 Miscellaneous Information 1 ea NOTE XX ; Start 09/12/18 at 04:30 Glucose (Glutose) 15 gm Q15M PRN PO DECREASED GLUCOSE; Start 09/12/18 at 04:30 Glucose (Glutose) 22.5 gm Q15M PRN PO DECREASED GLUCOSE; Start 09/12/18 at 04:30 Dextrose (D50w Syringe) 25 ml Q15M PRN IV DECREASED GLUCOSE; Start 09/12/18 at 04:30 Dextrose (D50w Syringe) 50 ml Q15M PRN IV DECREASED GLUCOSE; Start 09/12/18 at 04:30 Glucagon (Glucagen) 1 mg Q15M PRN IM DECREASED GLUCOSE; Start 09/12/18 at 04:30 Glucose (Glutose) 15 gm Q15M PRN BUCCAL DECREASED GLUCOSE; Start 09/12/18 at 04:30 Lorazepam (Ativan) 1 mg Q4H PRN IV agitation, anxiety; Start 09/13/18 at 11:00 Propofol 100 ml @ 1.95 mls/hr Q12H IV Last administered on 09/16/18at 03:30; Admin Dose 9.75 MLS/HR; Start 09/13/18 at 11:00 Furosemide (Lasix) 20 mg DAILY@0600 IV Last administered on 09/16/18at 05:11; Admin Dose 20 MG; Start 09/14/18 at 06:00 Dexmedetomidine HCl 200 mcg/ Sodium Chloride 50 ml @ 0 mls/hr TITRATE IV Last administered on 09/16/18at 09:10; Admin Dose 9.75 MLS/HR; Start 09/13/18 at 16:30 Aspirin (Aspirin) 81 mg DAILY NGT Last administered on 09/16/18at 09:21; Admin Dose 81 MG; Start 09/14/18 at 09:30 Carvedilol (Coreg) 3.125 mg BID NGT Last administered on 09/15/18at 21:34; Admin Dose 3.125 MG; Start 09/14/18 at 11:00 Hydralazine HCl (Apresoline) 10 mg Q4H PRN IV SBP ABOVE 160 Last administered on 09/14/18at 13:05; Admin Dose 10 MG; Start 09/14/18 at 12:00 Hydralazine HCl (Apresoline) 10 mg Q4H PRN IV SBP >170; Start 09/15/18 at 15:00 Fentanyl 100 ml @ 2.5 mls/hr TITRATE IV Last administered on 09/16/18at 09:42; Admin Dose 2.5 MLS/HR; Start 09/16/18 at 10:00 Albuterol/ Ipratropium (Duoneb) 3 ml Q6HWA RESP THERAPY HHN ; Start 09/16/18 at 14:00 Albuterol/ Ipratropium (Duoneb) 3 ml Q2H RESP THERAPY PRN HHN shortness of breath; Start 09/16/18 at 10:00 Budesonide (Pulmicort (Neb)) 0.5 mg BID RESP THERAPY HHN ; Start 09/16/18 at 20:00 Assessment/Plan Chief Complaint/Hosp Course Assessment 1. Status post cardiopulmonary arrest 2. Resolving toxic metabolic encephalopathy 3. Electrolyte abnormalities 4. Probable aspiration pneumonia 5. Resolving acute renal failure likely ATN Plan 1. Continue Precedex and fentanyl DC propofol 2. Weaning trial if more alert 3. Continue broad-spectrum antibiotics 4. Replace electrolytes Long discussion with family at bedside Critical care time 40 minutes [facility]ARDO INMAN MD, [facility] Sep 16, 2018 09:55
[2018-09-16] MEDS ORDERED: ALBUTEROL/IPRATROPIUM (NEB) 3 ML AMP HHN PRN (10:00)
--- NOTE | 2018-09-16 10:12 | PN ---
Date/Time of Note Date/Time of Note DATE: 09/16/18 TIME: 10:12 Objective Vitals Vital Signs Date Temp Pulse Resp B/P (MAP) Pulse Ox O2 O2 Flow FiO2 Time Delivery Rate 09/16/18 66 08:00 09/16/18 25 133/63 94 Mechanical 06:00 (86) Ventilator 09/16/18 30 04:50 09/16/18 98.6 04:00 Intake and Output 09/15/18 09/15/18 09/16/18 1515:00 23:00 07:00 IntakeIntake Total 750.26 ml 620.24 ml 656.31 ml OutputOutput Total 695 ml 1090 ml 283 ml BalanceBalance 55.26 ml -469.76 ml 373.31 ml Results Result Diagram: 09/16/18 0400 09/16/18 0400 Medications Medications Current Medications Acetaminophen (Tylenol Liquid) 650 mg Q6H PRN NGT PAIN LEVEL 1-3 OR FEVER Last administered on 09/12/18 09:30; Admin Dose 650 MG; Start 09/09/18 at 16:30 Morphine Sulfate (morphine) 2 mg Q4H PRN IV PAIN LEVEL 7-10 Last administered on 09/13/18 10:11; Admin Dose 2 MG; Start 09/09/18 at 16:30 Pantoprazole (Protonix Iv) 40 mg DAILY@06 IV Last administered on 09/16/18 05:10; Admin Dose 40 MG; Start 09/10/18 at 06:00 Piperacillin Sod/ Tazobactam Sod 100 ml @ 200 mls/hr Q8 IVPB Last administered on 09/16/18at 05:10; Admin Dose 200 MLS/HR; Start 09/09/18 at 22:00 Potassium Chloride (Potassium Chloride Pwd/Soln) 20 meq PER PROTOCOL PRN PO POTASSIUM REPLACEMENT PROTOCOL Last administered on 09/12/18 16:13; Admin Dose 20 MEQ; Start 09/10/18 at 09:00 Potassium Chloride (Potassium Chloride Pwd/Soln) 30 meq PER PROTOCOL PRN PO POTASSIUM REPLACEMENT PROTOCOL Last administered on 09/15/18at 15:09; Admin Dose 30 MEQ; Start 09/10/18 at 09:00 Potassium Chloride (Potassium Chloride Pwd/Soln) 40 meq PER PROTOCOL PRN PO POTASSIUM REPLACEMENT PROTOCOL Last administered on 1/14/19at 06:41; Admin Dose 40 MEQ; Start 09/10/18 at 09:00 Miscellaneous Information 1 ea NOTE XX ; Start 09/12/18 at 04:30 Glucose (Glutose) 15 gm Q15M PRN PO DECREASED GLUCOSE; Start 09/12/18 at 04:30 Glucose (Glutose) 22.5 gm Q15M PRN PO DECREASED GLUCOSE; Start 09/12/18 at 04:30 Dextrose (D50w Syringe) 25 ml Q15M PRN IV DECREASED GLUCOSE; Start 09/12/18 at 04:30 Dextrose (D50w Syringe) 50 ml Q15M PRN IV DECREASED GLUCOSE; Start 09/12/18 at 04:30 Glucagon (Glucagen) 1 mg Q15M PRN IM DECREASED GLUCOSE; Start 09/12/18 at 04:30 Glucose (Glutose) 15 gm Q15M PRN BUCCAL DECREASED GLUCOSE; Start 09/12/18 at 04:30 Lorazepam (Ativan) 1 mg Q4H PRN IV agitation, anxiety; Start 09/13/18 at 11:00 Propofol 100 ml @ 1.95 mls/hr Q12H IV Last administered on 09/16/18at 03:30; Admin Dose 9.75 MLS/HR; Start 09/13/18 at 11:00 Furosemide (Lasix) 20 mg DAILY@0600 IV Last administered on 09/16/18at 05:11; Admin Dose 20 MG; Start 09/14/18 at 06:00 Dexmedetomidine HCl 200 mcg/ Sodium Chloride 50 ml @ 0 mls/hr TITRATE IV Last administered on 09/16/18at 09:10; Admin Dose 9.75 MLS/HR; Start 09/13/18 at 16:30 Aspirin (Aspirin) 81 mg DAILY NGT Last administered on 09/16/18at 09:21; Admin Dose 81 MG; Start 09/14/18 at 09:30 Carvedilol (Coreg) 3.125 mg BID NGT Last administered on 09/15/18at 21:34; Admin Dose 3.125 MG; Start 09/14/18 at 11:00 Hydralazine HCl (Apresoline) 10 mg Q4H PRN IV SBP ABOVE 160 Last administered on 09/14/18at 13:05; Admin Dose 10 MG; Start 1/12/19 at 12:00 Hydralazine HCl (Apresoline) 10 mg Q4H PRN IV SBP >170; Start 09/15/18 at 15:00 Fentanyl 100 ml @ 2.5 mls/hr TITRATE IV Last administered on 09/16/18at 09:42; Admin Dose 2.5 MLS/HR; Start 09/16/18 at 10:00 Albuterol/ Ipratropium (Duoneb) 3 ml Q6HWA RESP THERAPY HHN ; Start 09/16/18 at 14:00 Albuterol/ Ipratropium (Duoneb) 3 ml Q2H RESP THERAPY PRN HHN shortness of breath; Start 09/16/18 at 10:00 Budesonide (Pulmicort (Neb)) 0.5 mg BID RESP THERAPY HHN ; Start 09/16/18 at 20:00 VTE Prophylaxis Risk score (from [facility] risk: 9 SCD applied (from [facility]): Yes Lines/Catheters IV Catheter Type: Sahni in Place: Yes Cont'd sahni catheter reason: terminal illness/intractable pain Assessment/Plan Hospital Course Subjective Patient still intubated, sedated Objective Physical exam General: Patient is laying in bed intubated and sedated Mentation: Patient is sedated Head: Normocephalic atraumatic Eyes: EOMI, pupils reactive to light Neck: Supple, nontender, midline Respiratory: Clear to auscultation bilaterally Cardiovascular: regular rate, no obvious murmurs Gastrointestinal: non-tender to palpation, bowel sounds heard. Neurological: Moves all extremities spontaneously to noxious stimuli, however p atient sedated and a full neurological exam is unable to be performed Skin: No new skin lesions Assessment/Plan 1. Acute hypoxic respiratory failure on mechanical ventilation - Pulm on board and appreciate consultation - Continue daily sedation vacations and CPAP trials - Patient initially does well once weaned off sedation but then gets very agitated and placed back on sedation. On Precedex this am again. 2. Vfib Cardiac arrest with ROSC s/p hypothermia protocol - Cardiology on board and appreciate consultation. Will continue current treatment with goal K >4 and Mg >2 - After being found down in Vfib arrest, patient underwent ACLS with 4 rounds of epi, Amiodarone x1, bicarb with ROSC. Patient noted with hypokalemia with K 2.1 at time of admission - ECHO reviewed and patient with poor EF 20%. Will need to reassess when condition improves 3. Septic shock secondary to aspiration pneumonia- improving - Off pressor support and will wean from vent as tolerated - Continue antibiotics and neb treatments - CXR results show slight progression of right pneumonia - Nebs PRN - Lactic acid normalized - ID consulted 4. Transaminitis- improving - most likely secondary to hypoperfusion - trending down 5. HTN 6. Hypokalemia- improving - will continue replacing with goal >4 7. JULISSA- improving - Nephrology consultation appreciated. continue on lasix and off IVF 8. Disposition - Continue monitoring in ICU. Will attempt daily sedation holidays and CPAP trials >35 minutes of critical care time spent with patient and family at bedside PIYUSH SYED Sep 16, 2018 10:12
--- NOTE | 2018-09-16 10:23 | CONS ---
Date/Time of Note Date/Time of Note DATE: 09/16/18 TIME: 10:21 Assessment/Plan Assessment/Plan Hospital Course ASSESSMENT AND PLAN: This is a 63-year-old female who presented with: 1. Non oliguric Acute renal failure. Also noted the patient with a creatinine was 0.89 on 09/09/2018. Since then, the patient was in cardiogenic shock, received CPR, was in V-fib arrest. Patient was also started on vancomycin/Zosyn and currently CVPs are 15 to 16. CVP improved, Cr stable now , CVP mUCH improved 2. Hypokalemia could be secondary to vomiting on admission; however, patient was also given diuretics currently. 3. V-fibrillation cardiac arrest with EF of 20%. 4. Shock secondary to cardiogenic likely/aspiration pneumonia. 5. Acute hypoxic respiratory failure, intubated. 6. Transaminitis. 7. Hypertension. Recs - gentle lasix - Monitor BMP - monitor UOP - zosyn renally dosed - renally dose all meds - avoid nephrotxins Result Diagram: 09/16/18 0400 09/16/18 0400 Results 24hrs Laboratory Tests Test 09/15/18 14:12 09/16/18 04:00 Potassium Level 3.7 3.2 L White Blood Count 7.1 Red Blood Count 2.92 L Hemoglobin 8.7 L Hematocrit 26.7 L Mean Corpuscular Volume 91.4 Mean Corpuscular Hemoglobin 29.8 Mean Corpuscular Hemoglobin Concent 32.6 Red Cell Distribution Width 14.3 Platelet Count 90 L Mean Platelet Volume 11.8 H Immature Granulocytes % 4.000 H Neutrophils % Segmented Neutrophils % (Manual) 66 Band Neutrophils % (Manual) 18 H Lymphocytes % Lymphocytes % (Manual) 9 L Monocytes % Monocytes % (Manual) 7 Eosinophils % Basophils % Nucleated Red Blood Cells % 0.4 H Immature Granulocytes # 0.280 H Neutrophils # Neutrophils # (Manual) 4.8 Band Neutrophils # 1.2 H Lymphocytes (Manual) 0.6 L Lymphocytes # Monocytes # Monocytes # (Manual) 0.4 Eosinophils # Basophils # Nucleated Red Blood Cells # Platelet Estimate DECREASED Giant Platelets 7 H Anisocytosis 1+ Microcytosis 1+ Ovalocytes 1+ Sodium Level 148 H Chloride Level 110 Carbon Dioxide Level 31 Anion Gap 7 Blood Urea Nitrogen 36 H Creatinine 1.06 H Est Glomerular Filtrat Rate mL/min > 60 Glucose Level 129 Calcium Level 8.6 Magnesium Level 2.1 Total Bilirubin 0.3 Direct Bilirubin 0.00 Indirect Bilirubin 0.3 Aspartate Amino Transf (AST/SGOT) 66 H Alanine Aminotransferase (ALT/SGPT) 101 H Alkaline Phosphatase 180 H Total Protein 5.7 L Albumin 2.8 L Globulin 2.90 Albumin/Globulin Ratio 0.96 Consultation Date/Type/Reason Admit Date/Time Sep 09, 2018 at 16:10 Initial Consult Date 09/10/18 Requesting Provider: OZZIE ALVAREZ MD 24 HR Interval Summary Free Text/Dictation Patient feeling weaning trial. Good urine output of 2 L And CVP's 7-11 Exam/Review of Systems Vital Signs Vitals Vital Signs Date Temp Pulse Resp B/P (MAP) Pulse Ox O2 O2 Flow FiO2 Time Delivery Rate 09/16/18 66 08:00 09/16/18 25 133/63 94 Mechanical 06:00 (86) Ventilator 09/16/18 30 04:50 09/16/18 98.6 04:00 Intake and Output 09/15/18 09/15/18 09/16/18 1515:00 23:00 07:00 IntakeIntake Total 750.26 ml 620.24 ml 656.31 ml OutputOutput Total 695 ml 1090 ml 283 ml BalanceBalance 55.26 ml -469.76 ml 373.31 ml Exam GENERAL: Patient is able to open eyes, moving extremities, follow some commands, intubated NECK: Supple. HEART: Regular rate and rhythm. LUNGS: Decreased breath sounds bilaterally, especially on the right. ABDOMEN: Soft, nontender, nondistended, positive normoactive bowel sounds. EXTREMITIES: No clubbing, cyanosis, or edema. NEUROLOGIC: opens eyes Medications Medications Current Medications Acetaminophen (Tylenol Liquid) 650 mg Q6H PRN NGT PAIN LEVEL 1-3 OR FEVER Last administered on 09/12/18at 09:30; Admin Dose 650 MG; Start 09/09/18 at 16:30 Morphine Sulfate (morphine) 2 mg Q4H PRN IV PAIN LEVEL 7-10 Last administered on 09/13/18at 10:11; Admin Dose 2 MG; Start 09/09/18 at 16:30 Pantoprazole (Protonix Iv) 40 mg DAILY@06 IV Last administered on 09/16/18at 05:10; Admin Dose 40 MG; Start 09/10/18 at 06:00 Piperacillin Sod/ Tazobactam Sod 100 ml @ 200 mls/hr Q8 IVPB Last administered on 09/16/18at 05:10; Admin Dose 200 MLS/HR; Start 09/09/18 at 22:00 Potassium Chloride (Potassium Chloride Pwd/Soln) 20 meq PER PROTOCOL PRN PO POTASSIUM REPLACEMENT PROTOCOL Last administered on 09/12/18at 16:13; Admin Dose 20 MEQ; Start 09/10/18 at 09:00 Potassium Chloride (Potassium Chloride Pwd/Soln) 30 meq PER PROTOCOL PRN PO POTASSIUM REPLACEMENT PROTOCOL Last administered on 09/15/18at 15:09; Admin Dose 30 MEQ; Start 09/10/18 at 09:00 Potassium Chloride (Potassium Chloride Pwd/Soln) 40 meq PER PROTOCOL PRN PO POTASSIUM REPLACEMENT PROTOCOL Last administered on 09/16/18at 06:41; Admin Dose 40 MEQ; Start 09/10/18 at 09:00 Miscellaneous Information 1 ea NOTE XX ; Start 09/12/18 at 04:30 Glucose (Glutose) 15 gm Q15M PRN PO DECREASED GLUCOSE; Start 09/12/18 at 04:30 Glucose (Glutose) 22.5 gm Q15M PRN PO DECREASED GLUCOSE; Start 09/12/18 at 04:30 Dextrose (D50w Syringe) 25 ml Q15M PRN IV DECREASED GLUCOSE; Start 09/12/18 at 04:30 Dextrose (D50w Syringe) 50 ml Q15M PRN IV DECREASED GLUCOSE; Start 09/12/18 at 04:30 Glucagon (Glucagen) 1 mg Q15M PRN IM DECREASED GLUCOSE; Start 09/12/18 at 04:30 Glucose (Glutose) 15 gm Q15M PRN BUCCAL DECREASED GLUCOSE; Start 09/12/18 at 04:30 Lorazepam (Ativan) 1 mg Q4H PRN IV agitation, anxiety; Start 09/13/18 at 11:00 Propofol 100 ml @ 1.95 mls/hr Q12H IV Last administered on 09/16/18at 03:30; Admin Dose 9.75 MLS/HR; Start 09/13/18 at 11:00 Furosemide (Lasix) 20 mg DAILY@0600 IV Last administered on 09/16/18at 05:11; Admin Dose 20 MG; Start 09/14/18 at 06:00 Dexmedetomidine HCl 200 mcg/ Sodium Chloride 50 ml @ 0 mls/hr TITRATE IV Last administered on 09/16/18at 09:10; Admin Dose 9.75 MLS/HR; Start 09/13/18 at 16:30 Aspirin (Aspirin) 81 mg DAILY NGT Last administered on 09/16/18at 09:21; Admin Dose 81 MG; Start 09/14/18 at 09:30 Carvedilol (Coreg) 3.125 mg BID NGT Last administered on 09/15/18at 21:34; Admin Dose 3.125 MG; Start 09/14/18 at 11:00 Hydralazine HCl (Apresoline) 10 mg Q4H PRN IV SBP ABOVE 160 Last administered on 09/14/18at 13:05; Admin Dose 10 MG; Start 09/14/18 at 12:00 Hydralazine HCl (Apresoline) 10 mg Q4H PRN IV SBP >170; Start 09/15/18 at 15:00 Fentanyl 100 ml @ 2.5 mls/hr TITRATE IV Last administered on 09/16/18at 09:42; Admin Dose 2.5 MLS/HR; Start 09/16/18 at 10:00 Albuterol/ Ipratropium (Duoneb) 3 ml Q6HWA RESP THERAPY HHN ; Start 09/16/18 at 14:00 Albuterol/ Ipratropium (Duoneb) 3 ml Q2H RESP THERAPY PRN HHN shortness of breath; Start 09/16/18 at 10:00 Budesonide (Pulmicort (Neb)) 0.5 mg BID RESP THERAPY HHN ; Start 09/16/18 at 20:00 RICHARD GIRARD MD Sep 16, 2018 10:23
--- NOTE | 2018-09-16 11:18 | CONS ---
Date/Time of Note Date/Time of Note DATE: 09/16/18 TIME: 11:15 Assessment/Plan Assessment/Plan Hospital Course 63-year-old female found down in the street unconscious. Paramedics called ACLS was begun, V. fib cardiac arrest. Patient transported [facility] and shock started off on hypothermia protocol. Patient is currently being rewarmed, 5 hours left. There is no information as to how long patient was down. At this time there is an incomplete database. Assessment/Plan Postdated note for visit September 15, 2018 Spoke to family members at the bedside brought him up to date with patient's current clinical condition including possible encephalopathy secondary to card iac arrest. Family members are realistic my impressions are that they would want to continue with high level of care even if patient has sustained anoxic injury. I discussed it with patient's daughter and son x2. Result Diagram: 09/16/18 0400 09/16/18 0400 Results 24hrs Laboratory Tests Test 09/15/18 14:12 09/16/18 04:00 Potassium Level 3.7 3.2 L White Blood Count 7.1 Red Blood Count 2.92 L Hemoglobin 8.7 L Hematocrit 26.7 L Mean Corpuscular Volume 91.4 Mean Corpuscular Hemoglobin 29.8 Mean Corpuscular Hemoglobin Concent 32.6 Red Cell Distribution Width 14.3 Platelet Count 90 L Mean Platelet Volume 11.8 H Immature Granulocytes % 4.000 H Neutrophils % Segmented Neutrophils % (Manual) 66 Band Neutrophils % (Manual) 18 H Lymphocytes % Lymphocytes % (Manual) 9 L Monocytes % Monocytes % (Manual) 7 Eosinophils % Basophils % Nucleated Red Blood Cells % 0.4 H Immature Granulocytes # 0.280 H Neutrophils # Neutrophils # (Manual) 4.8 Band Neutrophils # 1.2 H Lymphocytes (Manual) 0.6 L Lymphocytes # Monocytes # Monocytes # (Manual) 0.4 Eosinophils # Basophils # Nucleated Red Blood Cells # Platelet Estimate DECREASED Giant Platelets 7 H Anisocytosis 1+ Microcytosis 1+ Ovalocytes 1+ Sodium Level 148 H Chloride Level 110 Carbon Dioxide Level 31 Anion Gap 7 Blood Urea Nitrogen 36 H Creatinine 1.06 H Est Glomerular Filtrat Rate mL/min > 60 Glucose Level 129 Calcium Level 8.6 Magnesium Level 2.1 Total Bilirubin 0.3 Direct Bilirubin 0.00 Indirect Bilirubin 0.3 Aspartate Amino Transf (AST/SGOT) 66 H Alanine Aminotransferase (ALT/SGPT) 101 H Alkaline Phosphatase 180 H Total Protein 5.7 L Albumin 2.8 L Globulin 2.90 Albumin/Globulin Ratio 0.96 Consultation Date/Type/Reason Admit Date/Time Sep 09, 2018 at 16:10 Initial Consult Date 09/10/18 Requesting Provider: OZZIE ALVAREZ MD 24 HR Interval Summary Free Text/Dictation Pulsating note for September 15, 2018 Family members at this bedside She is still intubated at this time Sedated Hemodynamically stable Altered mental status Status post cardiac arrest Trickle fibrillation Exam/Review of Systems Vital Signs Vitals Vital Signs Date Temp Pulse Resp B/P (MAP) Pulse Ox O2 O2 Flow FiO2 Time Delivery Rate 09/16/18 66 08:00 09/16/18 25 133/63 94 Mechanical 06:00 (86) Ventilator 09/16/18 30 04:50 09/16/18 98.6 04:00 Intake and Output 09/15/18 09/15/18 09/16/18 1515:00 23:00 07:00 IntakeIntake Total 750.26 ml 620.24 ml 656.31 ml OutputOutput Total 695 ml 1090 ml 283 ml BalanceBalance 55.26 ml -469.76 ml 373.31 ml Medications Medications Current Medications Acetaminophen (Tylenol Liquid) 650 mg Q6H PRN NGT PAIN LEVEL 1-3 OR FEVER Last administered on 09/12/18at 09:30; Admin Dose 650 MG; Start 09/09/18 at 16:30 Morphine Sulfate (morphine) 2 mg Q4H PRN IV PAIN LEVEL 7-10 Last administered on 09/13/18at 10:11; Admin Dose 2 MG; Start 09/09/18 at 16:30 Pantoprazole (Protonix Iv) 40 mg DAILY@06 IV Last administered on 09/16/18at 05:10; Admin Dose 40 MG; Start 09/10/18 at 06:00 Piperacillin Sod/ Tazobactam Sod 100 ml @ 200 mls/hr Q8 IVPB Last administered on 09/16/18at 05:10; Admin Dose 200 MLS/HR; Start 09/09/18 at 22:00 Potassium Chloride (Potassium Chloride Pwd/Soln) 20 meq PER PROTOCOL PRN PO POTASSIUM REPLACEMENT PROTOCOL Last administered on 09/12/18at 16:13; Admin Dose 20 MEQ; Start 09/10/18 at 09:00 Potassium Chloride (Potassium Chloride Pwd/Soln) 30 meq PER PROTOCOL PRN PO POTASSIUM REPLACEMENT PROTOCOL Last administered on 09/15/18at 15:09; Admin Dose 30 MEQ; Start 09/10/18 at 09:00 Potassium Chloride (Potassium Chloride Pwd/Soln) 40 meq PER PROTOCOL PRN PO POTASSIUM REPLACEMENT PROTOCOL Last administered on 09/16/18at 06:41; Admin Dose 40 MEQ; Start 09/10/18 at 09:00 Miscellaneous Information 1 ea NOTE XX ; Start 09/12/18 at 04:30 Glucose (Glutose) 15 gm Q15M PRN PO DECREASED GLUCOSE; Start 09/12/18 at 04:30 Glucose (Glutose) 22.5 gm Q15M PRN PO DECREASED GLUCOSE; Start 09/12/18 at 04:30 Dextrose (D50w Syringe) 25 ml Q15M PRN IV DECREASED GLUCOSE; Start 09/12/18 at 04:30 Dextrose (D50w Syringe) 50 ml Q15M PRN IV DECREASED GLUCOSE; Start 09/12/18 at 04:30 Glucagon (Glucagen) 1 mg Q15M PRN IM DECREASED GLUCOSE; Start 09/12/18 at 04:30 Glucose (Glutose) 15 gm Q15M PRN BUCCAL DECREASED GLUCOSE; Start 09/12/18 at 04:30 Lorazepam (Ativan) 1 mg Q4H PRN IV agitation, anxiety; Start 09/13/18 at 11:00 Propofol 100 ml @ 1.95 mls/hr Q12H IV Last administered on 09/16/18at 03:30; Admin Dose 9.75 MLS/HR; Start 09/13/18 at 11:00 Furosemide (Lasix) 20 mg DAILY@0600 IV Last administered on 09/16/18at 05:11; Admin Dose 20 MG; Start 09/14/18 at 06:00 Dexmedetomidine HCl 200 mcg/ Sodium Chloride 50 ml @ 0 mls/hr TITRATE IV Last administered on 09/16/18at 09:10; Admin Dose 9.75 MLS/HR; Start 09/13/18 at 16:30 Aspirin (Aspirin) 81 mg DAILY NGT Last administered on 09/16/18at 09:21; Admin Dose 81 MG; Start 09/14/18 at 09:30 Carvedilol (Coreg) 3.125 mg BID NGT Last administered on 09/15/18at 21:34; Admin Dose 3.125 MG; Start 09/14/18 at 11:00 Hydralazine HCl (Apresoline) 10 mg Q4H PRN IV SBP ABOVE 160 Last administered on 09/14/18at 13:05; Admin Dose 10 MG; Start 09/14/18 at 12:00 Hydralazine HCl (Apresoline) 10 mg Q4H PRN IV SBP >170; Start 09/15/18 at 15:00 Fentanyl 100 ml @ 2.5 mls/hr TITRATE IV Last administered on 09/16/18at 09:42; Admin Dose 2.5 MLS/HR; Start 09/16/18 at 10:00 Albuterol/ Ipratropium (Duoneb) 3 ml Q6HWA RESP THERAPY HHN ; Start 09/16/18 at 14:00 Albuterol/ Ipratropium (Duoneb) 3 ml Q2H RESP THERAPY PRN HHN shortness of breath; Start 09/16/18 at 10:00 Budesonide (Pulmicort (Neb)) 0.5 mg BID RESP THERAPY HHN ; Start 09/16/18 at 20:00 SERA DOWELL Sep 16, 2018 11:18
--- NOTE | 2018-09-16 12:04 | CONS ---
DATE OF ADMISSION: 09/09/2018 DATE OF CONSULTATION: 09/16/2018 TYPE OF CONSULTATION: Infectious disease. REASON FOR CONSULTATION: Antibiotic management. HISTORY OF PRESENT ILLNESS: Emily Elmore is a 63-year-old female who presented to the Emergency [facility] with a witnessed cardiac arrest on the street. She was in ventricular fibrillation, was defibrilla richard twice by EMS and treated with epinephrine 1 mg IV. She arrived to the Emergency Room in V-fib, w as immediately intubated without any difficulty. She had return of systemic circulation. The arrest began at 12:32 and ended at 12:41. She had Narcan and was defibrillated twice. She also had amioda marisol, epinephrine and an ampule of bicarbonate with good response. On admission, her white count was 2.6, H and H of 12.4 and 39.4, platelet count of 146,000. Her pota ssium was only 2.1, BUN and creatinine 12/0.89, glucose 249. She had, as noted a white count of 2.6 and 2.5 with 14 polys, 27 bands, so she was somewhat neutropenic. HOSPITAL COURSE: 1. Blood cultures have been negative. Urine cultures negative. Chest x-ray on admission showed an endotracheal tube, extensive right lung infiltrate. Patient was started on vancomycin, Zosyn, Amioda marisol, Propofol. She was put on hypothermia protocol, felt to be in septic shock secondary to pneumo sonia with right-sided pneumonia on chest x-ray. As noted, she had an ET tube and extensive lung infil trates. A CT scan of the spine showed no acute fractures of the cervical spine. Currently, tubes an d lines remain in place, right lung infiltrate is again seen. No significant changes. There is dens e consolidation of the right lung with probable right pleural effusion. The patient remains on propo fol and Zosyn. White count is now 7.1, H and H 8.7 and 26.7, platelet count of 90,000. HOSPITAL COURSE: Patient seen by Dr. Garner and also by Dr. Sears. Dr. Sears noted she was admitted with cardiac arrest. She is status post hypothermia. She was too weak yesterday to undergo CPAP. T his was on 09/14, acute injury, renal injury with improving renal function. Today, she was seen by Richard Cruz. She opens her eyes and follows command. PAST MEDICAL HISTORY: OPERATIONS: None. FAMILY HISTORY: Noncontributory. SOCIAL HISTORY: No evidence of smoking, drinking or abuse of drugs. ALLERGIES: None to penicillin, sulfa or foods. MEDICATIONS: Per chart. REVIEW OF SYSTEMS: Noncontributory. PHYSICAL EXAMINATION: GENERAL: The patient is an elderly appearing female who is on mechanical ventilation, orally intubat ed. VITAL SIGNS: Stable. She is afebrile. SKIN: Without generalized rash. HEENT: Within normal limits. NECK: Supple. LYMPH NODES: None palpable. CHEST: Decreased breath sounds at the bases. HEART: Without murmur or gallop. ABDOMEN: Soft, nontender, without organosplenomegaly or masses. EXTREMITIES: Without cyanosis, clubbing, or edema. RECTAL AND GENITAL: Deferred. NEUROLOGIC: No focal neurological abnormalities. Patient is very weak. IMPRESSION AND PLAN: Patient is status post cardiopulmonary arrest, resolving toxic metabolic enceph alopathy, probable aspiration pneumonia, resolving acute renal failure, electrolyte abnormalities. I would continue her on current antibiotic therapy. At the present time, she is on Zosyn alone. I will dictate my findings to the hospitalists and to the aforementioned consultants. Dictated By: CHRIS BANGURA MD, JD/AARON Conf#: [id number] DID#: [id number] CC: OZZIE ALVAREZ MD;*End*
--- NOTE | 2018-09-16 12:12 | NUR ---
SS NOTE: F/U F/U WITH PT'S DTR, ALCIDES. DTR REPORTED GOOD UNDERSTANDING OF THE PLAN OF CARE. DTR REPORTED UNDERSTANDING THAT PT REMAINS AGITATED AND HAS FAILED CPAP TRIALS. SHE IS AWARE THAT SOME MEDICATIONS HAVE BEEN CHANGED SO KEEP PT LESS ANXIOUS AND AGITATED SO THAT SHE WILL BE ABLE TO TOLERATE CPAP TRIALS BETTER. DTR AGREED WITH THE PLAN OF CARE. SW PROVIDED EMOTIONAL SUPPORT. WILL CONTINUE TO F/U NEEDED.
[2018-09-16] MEDS ORDERED: ALBUTEROL/IPRATROPIUM (NEB) 3 ML AMP HHN SCH (14:00)
[2018-09-16] MEDS: IPRATROPIUM (HFA) 12.9 GM INHALER INH SCH ×2 (14:14→20:24)
--- NOTE | 2018-09-16 14:47 | CONS ---
Date/Time of Note Date/Time of Note DATE: 09/16/18 TIME: 14:34 Consult Date/Type/Reason Admit Date/Time Sep 09, 2018 at 16:10 Initial Consult Date 09/10/18 Type of Consultation: CV Requesting Provider: OZZIE ALVAREZ MD Subjective Interventional cardiology follow-up progress note/critical care note Subjective: Case discussed with the staff and rhythm was reviewed. Patient remains in sinus rhythm sinus bradycardia/NSR no VT. d/w multiple physicians including Dr Cruz Patient remains intubated on vent in ICU and unable to wean off. Discussed with patient's family including daughter AND son in law O: General: Status post intubation on the vent HEENT: NC/AT. pupils are equal. round. NECK: no stridor. CV: RRR. systolic murmur; no gallop or rubs. PULM: no wheezing + rhonchi. GI: SOFT, NT, ND, no rebound or guarding Extremity: trace B/L LE edema. no clubbing. neuro: sedated now Psych: calm rectal: deferred CVP around 10 now CXR 1. Cardiomegaly and mild failure. 2. Superimposed dense right central and mid lung pneumonia, similar in appearance to the prior examination. 3. Recommend advancing nasogastric tube about [address] tip and side port well within the gastric lumen, with re-imaging. CXR 09/16/18: Since the prior study, there has been no significant interval change in the appearance of the heart or lungs or position of tubes and lines allowing for slight differences in technique and positioning.. Tubes and lines remain in good position. Right lung infiltrate is again seen with slight fluid in the minor fissure. The left lung remains relatively clear. echo reviewed Normal left ventricular cavity size. Moderate concentric left ventricular hypertrophy. Severe global left ventricular systolic dysfunction. Ejection fraction is visually estimated at 20 %. Mitral valve leaflets appear mildly thickened. Mild mitral annular calcification. Trace mitral regurgitation. No significant aortic stenosis or insufficiency. Aortic cusps appear mildly calcified. Normal appearance of the tricuspid valve. Estimated peak PA systolic pressure 27 mmHg. There is mild tricuspid regurgitation. Dilated IVC without respiratory collapse, however, patient on ventilator. Objective Vital Signs Date Temp Pulse Resp B/P (MAP) Pulse Ox O2 O2 Flow FiO2 Time Delivery Rate 09/16/18 58 12:00 09/16/18 20 130/61 95 Mechanical 11:00 (84) Ventilator 09/16/18 30 08:00 09/16/18 98.8 08:00 Intake and Output 09/15/18 09/15/18 09/16/18 1414:59 22:59 06:59 IntakeIntake Total 710.28 ml 612.44 ml 707.29 ml OutputOutput Total 645 ml 1097 ml 326 ml BalanceBalance 65.28 ml -484.56 ml 381.29 ml Results/Medications Result Diagram: 09/16/18 0400 09/16/18 0400 Results 24 hrs Laboratory Tests Test 09/16/18 04:00 White Blood Count 7.1 Red Blood Count 2.92 L Hemoglobin 8.7 L Hematocrit 26.7 L Mean Corpuscular Volume 91.4 Mean Corpuscular Hemoglobin 29.8 Mean Corpuscular Hemoglobin Concent 32.6 Red Cell Distribution Width 14.3 Platelet Count 90 L Mean Platelet Volume 11.8 H Immature Granulocytes % 4.000 H Neutrophils % Segmented Neutrophils % (Manual) 66 Band Neutrophils % (Manual) 18 H Lymphocytes % Lymphocytes % (Manual) 9 L Monocytes % Monocytes % (Manual) 7 Eosinophils % Basophils % Nucleated Red Blood Cells % 0.4 H Immature Granulocytes # 0.280 H Neutrophils # Neutrophils # (Manual) 4.8 Band Neutrophils # 1.2 H Lymphocytes (Manual) 0.6 L Lymphocytes # Monocytes # Monocytes # (Manual) 0.4 Eosinophils # Basophils # Nucleated Red Blood Cells # Platelet Estimate DECREASED Giant Platelets 7 H Anisocytosis 1+ Microcytosis 1+ Ovalocytes 1+ Sodium Level 148 H Potassium Level 3.2 L Chloride Level 110 Carbon Dioxide Level 31 Anion Gap 7 Blood Urea Nitrogen 36 H Creatinine 1.06 H Est Glomerular Filtrat Rate mL/min > 60 Glucose Level 129 Calcium Level 8.6 Magnesium Level 2.1 Total Bilirubin 0.3 Direct Bilirubin 0.00 Indirect Bilirubin 0.3 Aspartate Amino Transf (AST/SGOT) 66 H Alanine Aminotransferase (ALT/SGPT) 101 H Alkaline Phosphatase 180 H Total Protein 5.7 L Albumin 2.8 L Globulin 2.90 Albumin/Globulin Ratio 0.96 Medications Current Medications Acetaminophen (Tylenol Liquid) 650 mg Q6H PRN NGT PAIN LEVEL 1-3 OR FEVER Last administered on 09/12/18at 09:30; Admin Dose 650 MG; Start 09/09/18 at 16:30 Morphine Sulfate (morphine) 2 mg Q4H PRN IV PAIN LEVEL 7-10 Last administered on 09/13/18at 10:11; Admin Dose 2 MG; Start 09/09/18 at 16:30 Pantoprazole (Protonix Iv) 40 mg DAILY@06 IV Last administered on 09/16/18at 05:10; Admin Dose 40 MG; Start 09/10/18 at 06:00 Piperacillin Sod/ Tazobactam Sod 100 ml @ 200 mls/hr Q8 IVPB Last administered on 09/16/18at 05:10; Admin Dose 200 MLS/HR; Start 09/09/18 at 22:00 Potassium Chloride (Potassium Chloride Pwd/Soln) 20 meq PER PROTOCOL PRN PO POTASSIUM REPLACEMENT PROTOCOL Last administered on 09/12/18at 16:13; Admin Dose 20 MEQ; Start 09/10/18 at 09:00 Potassium Chloride (Potassium Chloride Pwd/Soln) 30 meq PER PROTOCOL PRN PO POTASSIUM REPLACEMENT PROTOCOL Last administered on 09/15/18at 15:09; Admin Dose 30 MEQ; Start 09/10/18 at 09:00 Potassium Chloride (Potassium Chloride Pwd/Soln) 40 meq PER PROTOCOL PRN PO POTASSIUM REPLACEMENT PROTOCOL Last administered on 09/16/18at 06:41; Admin Dose 40 MEQ; Start 09/10/18 at 09:00 Miscellaneous Information 1 ea NOTE XX ; Start 09/12/18 at 04:30 Glucose (Glutose) 15 gm Q15M PRN PO DECREASED GLUCOSE; Start 09/12/18 at 04:30 Glucose (Glutose) 22.5 gm Q15M PRN PO DECREASED GLUCOSE; Start 09/12/18 at 04:30 Dextrose (D50w Syringe) 25 ml Q15M PRN IV DECREASED GLUCOSE; Start 09/12/18 at 04:30 Dextrose (D50w Syringe) 50 ml Q15M PRN IV DECREASED GLUCOSE; Start 09/12/18 at 04:30 Glucagon (Glucagen) 1 mg Q15M PRN IM DECREASED GLUCOSE; Start 09/12/18 at 04:30 Glucose (Glutose) 15 gm Q15M PRN BUCCAL DECREASED GLUCOSE; Start 09/12/18 at 04:30 Lorazepam (Ativan) 1 mg Q4H PRN IV agitation, anxiety; Start 09/13/18 at 11:00 Propofol 100 ml @ 1.95 mls/hr Q12H IV Last administered on 09/16/18at 03:30; Admin Dose 9.75 MLS/HR; Start 09/13/18 at 11:00 Furosemide (Lasix) 20 mg DAILY@0600 IV Last administered on 09/16/18 05:11; Admin Dose 20 MG; Start 09/14/18 at 06:00 Dexmedetomidine HCl 200 mcg/ Sodium Chloride 50 ml @ 0 mls/hr TITRATE IV Last administered on 09/16/18 09:10; Admin Dose 9.75 MLS/HR; Start 09/13/18 at 16:30 Aspirin (Aspirin) 81 mg DAILY NGT Last administered on 09/16/18 09:21; Admin Dose 81 MG; Start 09/14/18 at 09:30 Carvedilol (Coreg) 3.125 mg BID NGT Last administered on 09/15/18 21:34; Admin Dose 3.125 MG; Start 09/14/18 at 11:00 Hydralazine HCl (Apresoline) 10 mg Q4H PRN IV SBP ABOVE 160 Last administered on 09/14/18at 13:05; Admin Dose 10 MG; Start 09/14/18 at 12:00 Hydralazine HCl (Apresoline) 10 mg Q4H PRN IV SBP >170; Start 09/15/18 at 15:00 Fentanyl 100 ml @ 2.5 mls/hr TITRATE IV Last administered on 09/16/18at 09:42; Admin Dose 2.5 MLS/HR; Start 09/16/18 at 10:00 Albuterol/ Ipratropium (Duoneb) 3 ml Q2H RESP THERAPY PRN HHN shortness of breath; Start 09/16/18 at 10:00 Budesonide (Pulmicort (Neb)) 0.5 mg BID RESP THERAPY HHN ; Start 09/16/18 at 20:00 Albuterol (Ventolin Hfa) 4 puff Q6HWA RESP THERAPY INH Last administered on 09/16/18 14:15; Admin Dose 4 PUFF; Start 09/16/18 at 14:00 Ipratropium [place] (Atrovent Hfa) 4 puff Q6HWA RESP THERAPY INH Last administered on 09/16/18 14:14; Admin Dose 4 PUFF; Start 09/16/18 at 14:00 Assessment/Plan Chief Complaint/Hosp Course 1. Cardiopulmonary arrest 2. Hypoxemic hypercapnic respiratory failure status post intubation on the vent 3. Right lung infiltrate consistent with pneumonia possible aspiration pneumonia 4. V. tach arrest: 5. Encephalopathy 6. Severe lactic acidosis 7. Hyperglycemia 8. Transaminitis 9. Severe hypokalemia 10. NSTEMI 11. Cardiomyopathy 12. JULISSA : improved now 13. thrombocytopenia: stable now Recommendations: Continue with vent support. cont tube feeding correct the potassium and Mg to keep K more than 4, magnesium more than 2 Antibiotic management will be deferred to internal medicine team [facility] iva angio PCI tomorrow am,. Risks benefits and alternatives of p rocedure including but not limited to risk of infection vascular complication bleeding complication [place] stroke arrhythmia renal failure etc. discussed with the patient's daughter and son-in-law at the bedside in detail. Increased risk of complication due to her multiple complicated medical problems discussed with them. Daughter has consented to procedure. She is going to talk to her other sisters and signed a consent after that. Plan for coronary angiography tomorrow morning cont ICU care. full code for now More than 37 minutes of critical care time was for management treatment is cr itically patient excluding any procedures Thank you for his referral. We will continue to follow along with you DEMETRIUS MCCRAY MD [facility] DEMETRIUS MCCRAY MD Sep 16, 2018 14:45
[2018-09-16] MEDS: hydrALAzine 20 MG INJ IV PRN ×2 (15:09→16:33)
[2018-09-16] MEDS: BUDESONIDE (NEB) 0.5MG/2ML AMP HHN SCH (20:24)
[2018-09-17] VITALS (39 sets, daily range): BP systolic 89–176; BP diastolic 53–84; PULSE 47–81; RESP 8–28
[2018-09-17] MEDS: FENTAnyl (DRIP) 1000 mcg/100mL 100 ML IV SCH ×2 (02:31→17:30)
[2018-09-17] MEDS: DEXMEDETOMIDINE HCL 200 MCG in SOD CHLORIDE 0.9% 48 ML IV SCH ×2 (03:00→05:36)
[2018-09-17] MEDS: hydrALAzine 20 MG INJ IV PRN (04:15)
[2018-09-17] MEDS: PIPER-TAZO 3.375 GM IV (PMX) 100 ML IVPB SCH ×4 (05:07→21:19)
[2018-09-17] MEDS: PANTOPRAZOLE 40 MG INJ IV SCH (05:07)
[2018-09-17] MEDS: FUROSEMIDE 20 MG INJ IV SCH (05:07)
--- NOTE | 2018-09-17 06:52 | NUR ---
END OF SHIFT REPORT NO ACUTE EVENTS OVER NIGHT. PT IS VERY HYPER SENSITIVE TO THE ETT. PT EXPRESSED SEVERAL TIMES SHE WANTS HAVE ETT REMOVED. PT GETS VERY RESTLESS AND AGITATED, ATTEMPTING TO SLIDE OUT OF BED. PT UNDERSTANDS THE CONSEQUENCES OF PULLING OUT TUBE AND AGREES TO NOT PULLING IT. GOOD URINE OUTPUT, BED BATH AND ORAL CARE PROVIDED. SECURITY COORDINATOR CALLED PT IS GOING TO SECURITY COORDINATOR AT 0730. FAMILY IS AWARE. IMPREGNATOR AND DRIER CONSULTS DUE TO FAMILY DYNAMICS BETWEEN BOTH SISTERS.
[2018-09-17] MEDS ORDERED: LIDOCAINE 1% (MDV) 20 ML INJ ONE (07:15)
[2018-09-17] MEDS ORDERED: IODIXANOL LOCM 100 ML BTL ONE (07:15)
[2018-09-17] MEDS ORDERED: MIDAZOLAM 1 MG/ML 2 ML INJ ONE (07:32)
[2018-09-17] MEDS: IPRATROPIUM (HFA) 12.9 GM INHALER INH SCH ×3 (08:00→19:38)
[2018-09-17] MEDS: ALBUTEROL HFA 8 GM INHALER INH SCH ×3 (08:00→19:38)
[2018-09-17] MEDS ORDERED: NITROGLYCERIN (IC) 100 MCG/ML INJ ONE (08:13)
[2018-09-17] MEDS ORDERED: SOD CHLORIDE 0.9% 1,000 ML IV SCH (08:50)
--- NOTE | 2018-09-17 08:50 | OPR ---
Date/Time of Note Date/Time of Note DATE: 09/17/18 TIME: 08:45 Operative Report Procedure Date: Sep 17, 2018 Preoperative Diagnosis VT cardiac arrest. + trop c/w NSTEMI, Cardiomyopathy Postoperative Diagnosis see below Operation/Procedure Performed [facility] iva Surgeon see signature line Estimator none Anesthesia Type: moderate sedation Estimated Blood Loss: minimal Transfusion none Specimen none Grafts/Implants none Complications none Procedure Description Procedure performed: 1. Left heart catheterization, selective right and left coronary angiogram 2. right femoral angiogram and closure of the right femoral artery using a perclose device 3. moderate sedation for more than 30 minutes. Ticket Dispatcher: Demetrius Graham MD Indication:: 63-year-old female who presented with V. fib cardiac arrest, she also had positive troponin and severe LV dysfunction. Coronary angiography was recommended to rule out significant obstructive coronary artery disease Findin. Left main coronary artery: Is short and normal. 2. Left anterior descending artery: Its a moderate to small size vessel and goes around the apex. It is extremely tortuous consistent with hypertensive heart disease. It has no significant stenosis . 3. Left circumflex artery: Is nondominant. It has no significant stenosis 4. Right coronary artery: Is a large dominant vessel. It is very tortuous and has 40% stenosis proximally at the site of the band 5. Ramus intermediate is a moderate size vessel which is very tortuous but no significant obstructive stenosis seen 6. LV pressure: 218 with LVEDP of 20. After 400 mcg of IC nitroglycerin was given blood pressure dropped down to 145 with LVEDP of 12. Aortic pressure was pulled back is 141/57 Written informed consent with obtained after risks benefits and alternatives discussed with the patient's multiple sisters in detail. risks including but not limited to risk of infection vascular complications, bleeding complications, [place] stroke arrhythmia renal failure at even were discussed with the patient in detail. Patient was brought into the cardiac cytogenetics laboratory manager and placed in supine position. Right and left groin area was prepped and draped in regular sterile fashion and then he was in anesthetized using 1% lidocaine. Right femoral artery was cannulated and using modified seldinger technique a 5 Malian sheath was placed in the right femoral artery. Right femoral angiogram was performed. JL4 catheter was advanced and engaged into the left main coronary artery and angiographic view was obtained. The JR4 catheter was advanced and engaged right coronary artery angiographic view was obtained. Pigtail was advanced to engage the left ventricle hemodynamics as recorded by pullback aortic pressure was measured Patient tolerated procedure well with no complication. Patient is to be transferred to recovery room in stable condition. contrast used:40 cc Conclusions: No significant obstructive coronary artery disease DEMETRIUS GRAHAM MD Sep 17, 2018 08:50
[2018-09-17] MEDS ORDERED: POTASSIUM CHLORIDE 20 MEQ POWDER FOR ORAL SOLN NGT ONE (09:00)
--- NOTE | 2018-09-17 09:12 | CONS ---
Date/Time of Note Date/Time of Note DATE: 09/17/18 TIME: 09:09 Assessment/Plan Assessment/Plan Assessment/Plan Chest x-ray showing persistent significant right-sided infiltrative changes. Ventilator settings were reviewed. Assessment recommendations; 1. Patient admitted with cardiac arrest status post CPR because of V. fib likely precipitated by severe hypokalemia. 2. Status post hypothermia protocol with preservation of adequate mental status. 3. Extensive right-sided pneumonia likely aspiration. 4. Status post coronary angiography this morning without any significant findings. Elevation in troponin likely from CPR and cardiac arrest. Continue current supportive care. Add vancomycin to current antimicrobial regimen. Obtain follow-up chest x-ray in 24 hours. Perform another CPAP trial as tolerated. 35 minutes of critical care time was spent evaluating the patient. Result Diagram: [id number]/[id number] Results 24hrs Laboratory Tests Test 09/16/18 18:37 09/17/18 04:30 Sodium Level 146 H 147 H Potassium Level 3.2 L 3.7 Chloride Level 112 H 113 H Carbon Dioxide Level 27 29 Anion Gap 7 5 Blood Urea Nitrogen 29 H 28 H Creatinine 0.92 0.88 Est Glomerular Filtrat Rate mL/min > 60 > 60 Glucose Level 125 127 Calcium Level 8.6 8.5 White Blood Count 7.2 Red Blood Count 3.00 L Hemoglobin 9.0 L Hematocrit 27.6 L Mean Corpuscular Volume 92.0 Mean Corpuscular Hemoglobin 30.0 Mean Corpuscular Hemoglobin Concent 32.6 Red Cell Distribution Width 14.3 Platelet Count 112 #L Mean Platelet Volume 11.5 H Immature Granulocytes % 3.100 H Neutrophils % 78.6 H Lymphocytes % 7.7 L Monocytes % 7.8 Eosinophils % 2.5 Basophils % 0.3 Nucleated Red Blood Cells % 0.0 Immature Granulocytes # 0.220 H Neutrophils # 5.6 Lymphocytes # 0.6 L Monocytes # 0.6 Eosinophils # 0.2 Basophils # 0.0 Nucleated Red Blood Cells # 0.0 Prothrombin Time 12.6 # Prothrombin Time Ratio 1.0 INR International Normalized Ratio 0.93 Magnesium Level 2.1 Total Bilirubin 0.2 Direct Bilirubin 0.00 Indirect Bilirubin 0.2 Aspartate Amino Transf (AST/SGOT) 50 H Alanine Aminotransferase (ALT/SGPT) 89 H Alkaline Phosphatase 189 H Creatine Kinase 137 Creatine Kinase Index 0.6 Creatinine Kinase MB (Mass) 0.87 Troponin I 0.013 B-Type Natriuretic Peptide 1260 H Total Protein 5.0 L Albumin 2.7 L Globulin 2.30 Albumin/Globulin Ratio 1.17 Consultation Date/Type/Reason Admit Date/Time Sep 09, 2018 at 16:10 Initial Consult Date 09/10/18 Type of Consult Pulmonary/critical care History of presenting illness; patient is a 63-year-old lady who was brought into the hospital after found unresponsive. Patient underwent CPR and was in V. fib. Patient was successfully resuscitated intubated and transferred to ICU. By the time I saw her, patient is on mechanical ventilation and on hypothermia protocol. Patient also has remained hypotensive and on high-dose pressor support. Past medical history; 1. Hypertension. Medications; reviewed. Patient is currently on Versed 2 mg/h, fentanyl 50 mics per hour, Levophed 24 mics per minute, insulin drip 0.5 units/h, patient also is on hypothermia protocol with dialysis per protocol. Allergies; unknown. Family history, social history, occupational history is not available. Review of system; unable to be obtained. General exam; elderly female, orally intubated, paralyzed and sedated. Currently no distress. Requesting Provider: OZZIE ALVAREZ MD 24 HR Interval Summary Free Text/Dictation Patient's condition is critical. Patient underwent coronary angiography this morning without any significant findings. Patient remains intubated and occasionally agitated. However has remained hemodynamically stable. General exam; elderly female, orally intubated, awake and responsive. Currently in no distress. Exam/Review of Systems Vital Signs Vitals Vital Signs Date Temp Pulse Resp B/P (MAP) Pulse Ox O2 O2 Flow FiO2 Time Delivery Rate 09/17/18 53 08:59 09/17/18 26 141/62 95 Mechanical 06:00 (88) Ventilator 09/17/18 30 05:20 09/17/18 98.7 04:00 Intake and Output 09/16/18 09/16/18 09/17/18 1515:00 23:00 07:00 IntakeIntake Total 551.60 ml 839.76 ml 290.25 ml OutputOutput Total 875 ml 325 ml 290 ml BalanceBalance -323.40 ml 514.76 ml 0.25 ml Exam HEENT exam; supple neck, no JVD. No lymphadenopathy. Midline trachea. No thyromegaly. Orally intubated. Patient has fair dentition. Chest exam; diminished breath sounds right lung. Left lung is clear. S1-S2 audible, no murmurs. Regular rhythm. Abdomen exam; soft, nontender. No organomegaly. Bowel sounds audible. Extremity exam; no peripheral edema or clubbing. Pulses 1+. 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 Medications Medications Current Medications Acetaminophen (Tylenol Liquid) 650 mg Q6H PRN NGT PAIN LEVEL 1-3 OR FEVER Last administered on 09/12/18 09:30; Admin Dose 650 MG; Start 09/09/18 at 16:30 Morphine Sulfate (morphine) 2 mg Q4H PRN IV PAIN LEVEL 7-10 Last administered on 09/13/18 10:11; Admin Dose 2 MG; Start 09/09/18 at 16:30 Pantoprazole (Protonix Iv) 40 mg DAILY@06 IV Last administered on 09/17/18at 05:07; Admin Dose 40 MG; Start 09/10/18 at 06:00 Piperacillin Sod/ Tazobactam Sod 100 ml @ 200 mls/hr Q8 IVPB Last administered on 09/17/18 05:07; Admin Dose 200 MLS/HR; Start 09/09/18 at 22:00 Potassium Chloride (Potassium Chloride Pwd/Soln) 20 meq PER PROTOCOL PRN PO POTASSIUM REPLACEMENT PROTOCOL Last administered on 09/12/18at 16:13; Admin Dose 20 MEQ; Start 09/10/18 at 09:00 Potassium Chloride (Potassium Chloride Pwd/Soln) 30 meq PER PROTOCOL PRN PO PO TASSIUM REPLACEMENT PROTOCOL Last administered on 09/15/18at 15:09; Admin Dose 30 MEQ; Start 09/10/18 at 09:00 Potassium Chloride (Potassium Chloride Pwd/Soln) 40 meq PER PROTOCOL PRN PO POTASSIUM REPLACEMENT PROTOCOL Last administered on 09/16/18at 23:38; Admin Dose 40 MEQ; Start 09/10/18 at 09:00 Miscellaneous Information 1 ea NOTE XX ; Start 09/12/18 at 04:30 Glucose (Glutose) 15 gm Q15M PRN PO DECREASED GLUCOSE; Start 09/12/18 at 04:30 Glucose (Glutose) 22.5 gm Q15M PRN PO DECREASED GLUCOSE; Start 09/12/18 at 04:30 Dextrose (D50w Syringe) 25 ml Q15M PRN IV DECREASED GLUCOSE; Start 09/12/18 at 04:30 Dextrose (D50w Syringe) 50 ml Q15M PRN IV DECREASED GLUCOSE; Start 09/12/18 at 04:30 Glucagon (Glucagen) 1 mg Q15M PRN IM DECREASED GLUCOSE; Start 09/12/18 at 04:30 Glucose (Glutose) 15 gm Q15M PRN BUCCAL DECREASED GLUCOSE; Start 09/12/18 at 04:30 Lorazepam (Ativan) 1 mg Q4H PRN IV agitation, anxiety; Start 09/13/18 at 11:00 Furosemide (Lasix) 20 mg DAILY@0600 IV Last administered on 09/17/18at 05:07; Admin Dose 20 MG; Start 09/14/18 at 06:00 Dexmedetomidine HCl 200 mcg/ Sodium Chloride 50 ml @ 0 mls/hr TITRATE IV Last administered on 09/17/18at 05:36; Admin Dose 19.5 MLS/HR; Start 09/13/18 at 16:30 Aspirin (Aspirin) 81 mg DAILY NGT Last administered on 09/16/18at 09:21; Admin D ose 81 MG; Start 09/14/18 at 09:30 Carvedilol (Coreg) 3.125 mg BID NGT Last administered on 09/16/18at 21:09; Admin Dose 3.125 MG; Start 09/14/18 at 11:00 Hydralazine HCl (Apresoline) 10 mg Q4H PRN IV SBP ABOVE 160 Last administered on 09/16/18at 16:33; Admin Dose 10 MG; Start 09/14/18 at 12:00 Hydralazine HCl (Apresoline) 10 mg Q4H PRN IV SBP >170 Last administered on 09/17/18at 04:15; Admin Dose 10 MG; Start 09/15/18 at 15:00 Fentanyl 100 ml @ 2.5 mls/hr TITRATE IV Last administered on 09/17/18at 02:31; Admin Dose 7.5 MLS/HR; Start 09/16/18 at 10:00 Albuterol/ Ipratropium (Duoneb) 3 ml Q2H RESP THERAPY PRN HHN shortness of breath; Start 09/16/18 at 10:00 Budesonide (Pulmicort (Neb)) 0.5 mg BID RESP THERAPY HHN Last administered on 09/16/18at 20:24; Admin Dose 0.5 MG; Start 09/16/18 at 20:00 Albuterol (Ventolin Hfa) 4 puff Q6HWA RESP THERAPY INH Last administered on 09/16/18at 20:24; Admin Dose 4 PUFF; Start 09/16/18 at 14:00 Ipratropium [place] (Atrovent Hfa) 4 puff Q6HWA RESP THERAPY INH Last administered on 09/16/18at 20:24; Admin Dose 4 PUFF; Start 09/16/18 at 14:00 Sodium Chloride 1,000 ml @ 75 mls/hr [id number] IV ; Start 09/17/18 at 08:50; Stop 09/17/18 at 13:49 ANABELLA LANTIGUA Sep 17, 2018 09:12
--- NOTE | 2018-09-17 09:14 | CONS ---
Date/Time of Note Date/Time of Note DATE: 09/17/18 TIME: 09:09 Consult Date/Type/Reason Admit Date/Time Sep 09, 2018 at 16:10 Initial Consult Date 09/10/18 Type of Consultation: CV Requesting Provider: OZZIE ALVAREZ MD Subjective Interventional cardiology follow-up progress note/critical care note Subjective: Case discussed with the staff and rhythm was reviewed. Patient remains in sinus rhythm sinus bradycardia/NSR no VT. d/w multiple physicians including Dr SYED Patient remains intubated on vent in ICU and unable to wean off. 09/17/18: [facility] iva shows no significant obstructive coronary artery disease O: General: Status post intubation on the vent HEENT: NC/AT. pupils are equal. round. NECK: no stridor. CV: RRR. systolic murmur; no gallop or rubs. PULM: no wheezing + rhonchi in the right side. GI: SOFT, NT, ND, no rebound or guarding Extremity: trace B/L LE edema. no clubbing. neuro: sedated now Psych: calm rectal: deferred Right femoral artery with no bleeding or hematoma CXR 09/16/18: Since the prior study, there has been no significant interval change in the appearance of the heart or lungs or position of tubes and lines allowing for slight differences in technique and positioning.. Tubes and lines remain in good position. Right lung infiltrate is again seen with slight fluid in the minor fissure. The left lung remains relatively clear. echo reviewed Normal left ventricular cavity size. Moderate concentric left ventricular hypertrophy. Severe global left ventricular systolic dysfunction. Ejection fraction is visually estimated at 20 %. Mitral valve leaflets appear mildly thickened. Mild mitral annular calcification. Trace mitral regurgitation. No significant aortic stenosis or insufficiency. Aortic cusps appear mildly calcified. Normal appearance of the tricuspid valve. Estimated peak PA systolic pressure 27 mmHg. There is mild tricuspid regurgitation. Dilated IVC without respiratory collapse, however, patient on ventilator. Objective Vital Signs Date Temp Pulse Resp B/P (MAP) Pulse Ox O2 O2 Flow FiO2 Time Delivery Rate 09/17/18 53 08:59 09/17/18 26 141/62 95 Mechanical 06:00 (88) Ventilator 09/17/18 30 05:20 09/17/18 98.7 04:00 Intake and Output 09/16/18 09/16/18 09/17/18 1515:00 23:00 07:00 IntakeIntake Total 551.60 ml 839.76 ml 290.25 ml OutputOutput Total 875 ml 325 ml 290 ml BalanceBalance -323.40 ml 514.76 ml 0.25 ml Results/Medications Result Diagram: 09/17/180 09/17/18 0430 Results 24 hrs Laboratory Tests Test 09/16/18 18:37 09/17/18 04:30 Sodium Level 146 H 147 H Potassium Level 3.2 L 3.7 Chloride Level 112 H 113 H Carbon Dioxide Level 27 29 Anion Gap 7 5 Blood Urea Nitrogen 29 H 28 H Creatinine 0.92 0.88 Est Glomerular Filtrat Rate mL/min > 60 > 60 Glucose Level 125 127 Calcium Level 8.6 8.5 White Blood Count 7.2 Red Blood Count 3.00 L Hemoglobin 9.0 L Hematocrit 27.6 L Mean Corpuscular Volume 92.0 Mean Corpuscular Hemoglobin 30.0 Mean Corpuscular Hemoglobin Concent 32.6 Red Cell Distribution Width 14.3 Platelet Count 112 #L Mean Platelet Volume 11.5 H Immature Granulocytes % 3.100 H Neutrophils % 78.6 H Lymphocytes % 7.7 L Monocytes % 7.8 Eosinophils % 2.5 Basophils % 0.3 Nucleated Red Blood Cells % 0.0 Immature Granulocytes # 0.220 H Neutrophils # 5.6 Lymphocytes # 0.6 L Monocytes # 0.6 Eosinophils # 0.2 Basophils # 0.0 Nucleated Red Blood Cells # 0.0 Prothrombin Time 12.6 # Prothrombin Time Ratio 1.0 INR International Normalized Ratio 0.93 Magnesium Level 2.1 Total Bilirubin 0.2 Direct Bilirubin 0.00 Indirect Bilirubin 0.2 Aspartate Amino Transf (AST/SGOT) 50 H Alanine Aminotransferase (ALT/SGPT) 89 H Alkaline Phosphatase 189 H Creatine Kinase 137 Creatine Kinase Index 0.6 Creatinine Kinase MB (Mass) 0.87 Troponin I 0.013 B-Type Natriuretic Peptide 1260 H Total Protein 5.0 L Albumin 2.7 L Globulin 2.30 Albumin/Globulin Ratio 1.17 Medications Current Medications Acetaminophen (Tylenol Liquid) 650 mg Q6H PRN NGT PAIN LEVEL 1-3 OR FEVER Last administered on 09/12/18at 09:30; Admin Dose 650 MG; Start 09/09/18 at 16:30 Morphine Sulfate (morphine) 2 mg Q4H PRN IV PAIN LEVEL 7-10 Last administered on 09/13/18at 10:11; Admin Dose 2 MG; Start 09/09/18 at 16:30 Pantoprazole (Protonix Iv) 40 mg DAILY@06 IV Last administered on 09/17/18at 05:07; Admin Dose 40 MG; Start 09/10/18 at 06:00 Piperacillin Sod/ Tazobactam Sod 100 ml @ 200 mls/hr Q8 IVPB Last administered on 09/17/18at 05:07; Admin Dose 200 MLS/HR; Start 09/09/18 at 22:00 Potassium Chloride (Potassium Chloride Pwd/Soln) 20 meq PER PROTOCOL PRN PO POTASSIUM REPLACEMENT PROTOCOL Last administered on 09/12/18at 16:13; Admin Dose 20 MEQ; Start 09/10/18 at 09:00 Potassium Chloride (Potassium Chloride Pwd/Soln) 30 meq PER PROTOCOL PRN PO POTASSIUM REPLACEMENT PROTOCOL Last administered on 09/15/18at 15:09; Admin Dose 30 MEQ; Start 09/10/18 at 09:00 Potassium Chloride (Potassium Chloride Pwd/Soln) 40 meq PER PROTOCOL PRN PO POTASSIUM REPLACEMENT PROTOCOL Last administered on 09/16/18at 23:38; Admin Dose 40 MEQ; Start 09/10/18 at 09:00 Miscellaneous Information 1 ea NOTE XX ; Start 09/12/18 at 04:30 Glucose (Glutose) 15 gm Q15M PRN PO DECREASED GLUCOSE; Start 09/12/18 at 04:30 Glucose (Glutose) 22.5 gm Q15M PRN PO DECREASED GLUCOSE; Start 09/12/18 at 04:30 Dextrose (D50w Syringe) 25 ml Q15M PRN IV DECREASED GLUCOSE; Start 09/12/18 at 04:30 Dextrose (D50w Syringe) 50 ml Q15M PRN IV DECREASED GLUCOSE; Start 09/12/18 at 04:30 Glucagon (Glucagen) 1 mg Q15M PRN IM DECREASED GLUCOSE; Start 09/12/18 at 04:30 Glucose (Glutose) 15 gm Q15M PRN BUCCAL DECREASED GLUCOSE; Start 09/12/18 at 04 :30 Lorazepam (Ativan) 1 mg Q4H PRN IV agitation, anxiety; Start 09/13/18 at 11:00 Furosemide (Lasix) 20 mg DAILY@0600 IV Last administered on 09/17/18 05:07; Admin Dose 20 MG; Start 09/14/18 at 06:00 Dexmedetomidine HCl 200 mcg/ Sodium Chloride 50 ml @ 0 mls/hr TITRATE IV Last administered on 09/17/18 05:36; Admin Dose 19.5 MLS/HR; Start 09/13/18 at 16:30 Aspirin (Aspirin) 81 mg DAILY NGT Last administered on 09/16/18 09:21; Admin Dose 81 MG; Start 09/14/18 at 09:30 Carvedilol (Coreg) 3.125 mg BID NGT Last administered on 09/16/18 21:09; Admin Dose 3.125 MG; Start 09/14/18 at 11:00 Hydralazine HCl (Apresoline) 10 mg Q4H PRN IV SBP ABOVE 160 Last administered on 09/16/18 16:33; Admin Dose 10 MG; Start 09/14/18 at 12:00 Hydralazine HCl (Apresoline) 10 mg Q4H PRN IV SBP >170 Last administered on 09/17/18 04:15; Admin Dose 10 MG; Start 09/15/18 at 15:00 Fentanyl 100 ml @ 2.5 mls/hr TITRATE IV Last administered on 09/17/18 02:31; Admin Dose 7.5 MLS/HR; Start 09/16/18 at 10:00 Albuterol/ Ipratropium (Duoneb) 3 ml Q2H RESP THERAPY PRN HHN shortness of breath; Start 09/16/18 at 10:00 Budesonide (Pulmicort (Neb)) 0.5 mg BID RESP THERAPY HHN Last administered on 09/16/18 20:24; Admin Dose 0.5 MG; Start 09/16/18 at 20:00 Albuterol (Ventolin Hfa) 4 puff Q6HWA RESP THERAPY INH Last administered on 09/16/18 20:24; Admin Dose 4 PUFF; Start 09/16/18 at 14:00 Ipratropium [place] (Atrovent Hfa) 4 puff Q6HWA RESP THERAPY INH Last administered on 09/16/18 20:24; Admin Dose 4 PUFF; Start 09/16/18 at 14:00 Sodium Chloride 1,000 ml @ 75 mls/hr [id number] IV ; Start 09/17/18 at 08:50; Stop 09/17/18 at 13:49 Assessment/Plan Chief Complaint/Hosp Course 1. Status post cardiopulmonary arrest 2. Hypoxemic hypercapnic respiratory failure status post intubation on the vent 3. Right lung infiltrate consistent with pneumonia possible aspiration pneumonia 4. V. tach arrest: 5. Encephalopathy 6. Severe lactic acidosis 7. Hyperglycemia 8. Transaminitis 9. Severe hypokalemia 10. Positive troponin consistent with NSTEMI; given the fact that patient had normal coronaries this most likely secondary to CPR and cardiopulmonary arrest 11. Cardiomyopathy and probably hypertensive heart disease 12. JULISSA : improved now 13. thrombocytopenia: stable now 14. Anemia Recommendations: Continue with vent support. cont tube feeding correct the potassium and Mg to keep K more than 4, magnesium more than 2 Antibiotic management will be deferred to internal medicine team We will repeat an echocardiogram. If echo showed significant improvement in LV function then patient will would need at least an ICD. If patient echo shows severe LV dysfunction still, then she will benefit from BIV ICD placement prior to discharge. WILL start pt on hydralazine/ isordil. will add ARB/ DUTCH later on if renal fx remains stable cont ICU care. full code for now More than 35 minutes of critical care time was for management treatment is critically patient excluding any procedures Thank you for his referral. We will continue to follow along with you DEMETRIUS MCCRAY MD [facility] DEMETRIUS MCCRAY MD Sep 17, 2018 09:14
[2018-09-17] MEDS ORDERED: VANCOMYCIN IV PER PHARMACY XX SCH (09:30)
[2018-09-17] MEDS: ASPIRIN 81 MG TAB NGT SCH (09:34)
[2018-09-17] MEDS: BUDESONIDE (NEB) 0.5MG/2ML AMP HHN SCH ×2 (09:53→20:59)
--- NOTE | 2018-09-17 10:23 | NUR ---
Problem List: PNEUMONIA - MOST LIKELY ASPIRATION; STATUS POST CPR FROM CARDIAC ARREST; HTN Current ABXs: VANCOMYCIN, ZOSYN Significant micro/cultures: 09/12 URINE: NEG 09/10 BLOOD X2: NEG 09/09 NARES: NEG 09/09 BLOOD X2: NEG Levels/Significant Labs: 09/17 CXR: Increased diffuse combination interstitial and alveolar infiltrates involving the right lung and lung base. Comments/Plan: VANCO LOADING DOSE 1250 MG; FOLLOWED BY 500 MG EVERY 12 HOURS
[2018-09-17] MEDS ORDERED: DEXMEDETOMIDINE HCL 200 MCG in SOD CHLORIDE 0.9% 48 ML IV SCH (10:30)
--- NOTE | 2018-09-17 10:44 | CONS ---
Date/Time of Note Date/Time of Note DATE: 09/17/18 TIME: 10:41 Assessment/Plan Assessment/Plan Hospital Course ASSESSMENT AND PLAN: This is a 63-year-old female who presented with: 1. Non oliguric Acute renal failure. Also noted the patient with a creatinine was 0.89 on 09/09/2018. Since then, the patient was in cardiogenic shock, received CPR, was in V-fib arrest. Patient was also started on vancomycin/Zosyn and currently CVPs are 15 to 16. CVP improved, Cr stable now , CVP mUCH improved 2. Hypokalemia could be secondary to vomiting on admission; however, patient was also given diuretics currently. 3. V-fibrillation cardiac arrest with EF of 20%. This post left heart cath on 09/17/2018 with no evidence of ischemic disease 4. Shock secondary to cardiogenic likely/aspiration pneumonia. 5. Acute hypoxic respiratory failure, intubated. 6. Transaminitis. 7. Hypertension. 8 hyper natremia Recs - pt Was started on IV fluids for hydration post angiogram change to half NS - free Water flushes for hypernatremia - Monitor BMP - monitor UOP - zosyn renally dosed, added vancomycin today - renally dose all meds - avoid nephrotxins Result Diagram: 09/17/18 0430 09/17/18 0430 Results 24hrs Laboratory Tests Test 09/16/18 18:37 09/17/18 04:30 09/17/18 07:00 Sodium Level 146 H 147 H Potassium Level 3.2 L 3.7 Chloride Level 112 H 113 H Carbon Dioxide Level 27 29 Anion Gap 7 5 Blood Urea Nitrogen 29 H 28 H Creatinine 0.92 0.88 Est Glomerular Filtrat > 60 > 60 Rate mL/min Glucose Level 125 127 Calcium Level 8.6 8.5 White Blood Count 7.2 Red Blood Count 3.00 L Hemoglobin 9.0 L Hematocrit 27.6 L Mean Corpuscular Volume 92.0 Mean Corpuscular Hemoglobin 30.0 Mean Corpuscular 32.6 Hemoglobin Concent Red Cell Distribution Width 14.3 Platelet Count 112 #L Mean Platelet Volume 11.5 H Immature Granulocytes % 3.100 H Neutrophils % 78.6 H Lymphocytes % 7.7 L Monocytes % 7.8 Eosinophils % 2.5 Basophils % 0.3 Nucleated Red Blood Cells % 0.0 Immature Granulocytes # 0.220 H Neutrophils # 5.6 Lymphocytes # 0.6 L Monocytes # 0.6 Eosinophils # 0.2 Basophils # 0.0 Nucleated Red Blood Cells # 0.0 Prothrombin Time 12.6 # Prothrombin Time Ratio 1.0 INR International 0.93 Normalized Ratio Magnesium Level 2.1 Total Bilirubin 0.2 Direct Bilirubin 0.00 Indirect Bilirubin 0.2 Aspartate Amino 50 H Transf (AST/SGOT) Alanine 89 H Aminotransferase (ALT/SGPT) Alkaline Phosphatase 189 H Creatine Kinase 137 Creatine Kinase Index 0.6 Creatinine Kinase MB (Mass) 0.87 Troponin I 0.013 B-Type Natriuretic Peptide 1260 H Total Protein 5.0 L Albumin 2.7 L Globulin 2.30 Albumin/Globulin Ratio 1.17 Blood Gas Specimen Source Blood arterial Arterial Blood Date Drawn 09/17/2018 9:41:44 AM Arterial Blood pH 7.427 (Temp corrected) Arterial Blood pCO2 40.8 (Temp correct) Arterial Blood pO2 71.7 L (Temp corrected) Arterial Blood HCO3 26.3 H Arterial Blood Base Excess 1.8 Arterial Blood 93.4 L Oxygen Saturation Brian Test ACCEPTAB Arterial Blood Gas Right Radial Puncture Site Arterial 0.3 Blood Carboxyhemoglobin Arterial Blood Methemoglobin 0.4 Blood Gas A-a O2 94.3 H Differential Oxyhemoglobin Percent 92.7 L Blood Gas Temperature 37.0 Blood Gas Respiration Rate 16.0 Blood Gas Actual 16 Respiration Rate Blood Gas Modality VENT - SIMV FiO2 30.0 Blood Gas Tidal Volume 500.0 Blood Gas Low PEEP Setting 5.0 Blood Gas Pressure Support 12 Blood Gas Notified Whom TM Blood Gas Notified Time 09/17/2018 9:52:33 AM Consultation Date/Type/Reason Admit Date/Time Sep 09, 2018 at 16:10 Initial Consult Date 09/10/18 Requesting Provider: OZZIE ALVAREZ MD 24 HR Interval Summary Free Text/Dictation Status post angiogram today with no evidence of ischemic disease Patient is currently intubated Urine outputs with her 30 cc an hour Exam/Review of Systems Vital Signs Vitals Vital Signs Date Temp Pulse Resp B/P (MAP) Pulse Ox O2 O2 Flow FiO2 Time Delivery Rate 09/17/18 53 08:59 09/17/18 26 141/62 95 Mechanical 06:00 (88) Ventilator 09/17/18 30 05:20 09/17/18 98.7 04:00 Intake and Output 1/14/19 1/14/19 1/15/19 1515:00 23:00 07:00 IntakeIntake Total 551.60 ml 839.76 ml 290.25 ml OutputOutput Total 875 ml 325 ml 290 ml BalanceBalance -323.40 ml 514.76 ml 0.25 ml Exam GENERAL: Patient is able to open eyes, moving extremities, follow some co mmands, intubated NECK: Supple. HEART: Regular rate and rhythm. LUNGS: Decreased breath sounds bilaterally, especially on the right. ABDOMEN: Soft, nontender, nondistended, positive normoactive bowel sounds. EXTREMITIES: No clubbing, cyanosis, or edema. NEUROLOGIC: opens eyes Medications Medications Current Medications Acetaminophen (Tylenol Liquid) 650 mg Q6H PRN NGT PAIN LEVEL 1-3 OR FEVER Last administered on 09/12/18 09:30; Admin Dose 650 MG; Start 09/09/18 at 16:30 Morphine Sulfate (morphine) 2 mg Q4H PRN IV PAIN LEVEL 7-10 Last administered on 09/13/18at 10:11; Admin Dose 2 MG; Start 09/09/18 at 16:30 Pantoprazole (Protonix Iv) 40 mg DAILY@06 IV Last administered on 09/17/18at 05:07; Admin Dose 40 MG; Start 09/10/18 at 06:00 Piperacillin Sod/ Tazobactam Sod 100 ml @ 200 mls/hr Q8 IVPB Last administered on 09/17/18at 05:07; Admin Dose 200 MLS/HR; Start 09/09/18 at 22:00 Potassium Chloride (Potassium Chloride Pwd/Soln) 20 meq PER PROTOCOL PRN PO POTASSIUM REPLACEMENT PROTOCOL Last administered on 09/12/18 16:13; Admin Dose 20 MEQ; Start 09/10/18 at 09:00 Potassium Chloride (Potassium Chloride Pwd/Soln) 30 meq PER PROTOCOL PRN PO POTASSIUM REPLACEMENT PROTOCOL Last administered on 09/15/18at 15:09; Admin Dose 30 MEQ; Start 09/10/18 at 09:00 Potassium Chloride (Potassium Chloride Pwd/Soln) 40 meq PER PROTOCOL PRN PO PO TASSIUM REPLACEMENT PROTOCOL Last administered on 09/16/18 23:38; Admin Dose 40 MEQ; Start 09/10/18 at 09:00 Miscellaneous Information 1 ea NOTE XX ; Start 09/12/18 at 04:30 Glucose (Glutose) 15 gm Q15M PRN PO DECREASED GLUCOSE; Start 09/12/18 at 04:30 Glucose (Glutose) 22.5 gm Q15M PRN PO DECREASED GLUCOSE; Start 09/12/18 at 04:30 Dextrose (D50w Syringe) 25 ml Q15M PRN IV DECREASED GLUCOSE; Start 09/12/18 at 04:30 Dextrose (D50w Syringe) 50 ml Q15M PRN IV DECREASED GLUCOSE; Start 09/12/18 at 04:30 Glucagon (Glucagen) 1 mg Q15M PRN IM DECREASED GLUCOSE; Start 09/12/18 at 04:30 Glucose (Glutose) 15 gm Q15M PRN BUCCAL DECREASED GLUCOSE; Start 09/12/18 at 04:30 Lorazepam (Ativan) 1 mg Q4H PRN IV agitation, anxiety Last administered on 09/17/18at 09:26; Admin Dose 1 MG; Start 09/13/18 at 11:00 Furosemide (Lasix) 20 mg DAILY@0600 IV Last administered on 09/17/18at 05:07; Admin Dose 20 MG; Start 09/14/18 at 06:00 Aspirin (Aspirin) 81 mg DAILY NGT Last administered on 09/17/18at 09:34; Admin Dose 81 MG; Start 09/14/18 at 09:30 Carvedilol (Coreg) 3.125 mg BID NGT Last administered on 09/17/18at 09:35; Admin Dose 3.125 MG; Start 09/14/18 at 11:00 Hydralazine HCl (Apresoline) 10 mg Q4H PRN IV SBP ABOVE 160 Last administered on 09/16/18at 16:33; Admin Dose 10 MG; Start 09/14/18 at 12:00 Hydralazine HCl (Apresoline) 10 mg Q4H PRN IV SBP >170 Last administered on 09/17/18at 04:15; Admin Dose 10 MG; Start 09/15/18 at 15:00 Fentanyl 100 ml @ 2.5 mls/hr TITRATE IV Last administered on 09/17/18at 02:31; Admin Dose 7.5 MLS/HR; Start 09/16/18 at 10:00 Albuterol/ Ipratropium (Duoneb) 3 ml Q2H RESP THERAPY PRN HHN shortness of breath; Start 09/16/18 at 10:00 Budesonide (Pulmicort (Neb)) 0.5 mg BID RESP THERAPY HHN Last administered on 09/17/18at 09:53; Admin Dose 0.5 MG; Start 09/16/18 at 20:00 Albuterol (Ventolin Hfa) 4 puff Q6HWA RESP THERAPY INH Last administered on 09/16/18at 20:24; Admin Dose 4 PUFF; Start 09/16/18 at 14:00 Ipratropium [place] (Atrovent Hfa) 4 puff Q6HWA RESP THERAPY INH Last administered on 09/16/18at 20:24; Admin Dose 4 PUFF; Start 09/16/18 at 14:00 Vancomycin HCl (Vanco Iv Per Pharmacy) VANCOMYCIN PER PHARMACY PER PROTOCOL XX ; Start 09/17/18 at 09:30 Hydralazine HCl (Apresoline) 25 mg Q6 PO ; Start 09/17/18 at 12:00 Isosorbide Dinitrate (Isordil) 20 mg TID NGT ; Start 09/17/18 at 10:00 Vancomycin HCl 1.25 gm/Sodium Chloride 250 ml @ 83.333 mls/ hr ONCE IVPB ; Start 09/17/18 at 11:00; Stop 09/17/18 at 15:00 Vancomycin HCl 100 ml @ 100 mls/hr Q12H IVPB ; Start 09/17/18 at 23:00 Sodium Chloride 1,000 ml @ 70 mls/hr [id number] IV ; Start 09/17/18 at 10:30 Dexmedetomidine HCl 200 mcg/ Sodium Chloride 50 ml @ 0 mls/hr TITRATE IV ; Start 09/17/18 at 10:30; Status UNV Propofol 100 ml @ 1.95 mls/hr Q12H IV ; Start 09/17/18 at 10:30 RICHARD GIRARD MD Sep 17, 2018 10:44
[2018-09-17] MEDS ORDERED: VANCOMYCIN HCL 1.25 GM in SOD CHLORIDE 0.9% 250 ML IVPB SCH (11:00)
[2018-09-17] MEDS: SOD CHLORIDE 0.45% 1,000 ML IV SCH (11:11)
[2018-09-17] MEDS: PROPOFOL 100 ML IV SCH ×2 (11:12→21:40)
[2018-09-17] MEDS: ISOSORBIDE DINITRATE 20 MG TAB NGT SCH ×3 (11:22→21:19)
--- NOTE | 2018-09-17 13:30 | PN ---
Date/Time of Note Date/Time of Note DATE: 09/17/18 TIME: 13:27 Objective Vitals Vital Signs Date Temp Pulse Resp B/P (MAP) Pulse Ox O2 O2 Flow FiO2 Time Delivery Rate 09/17/18 55 12:00 09/17/18 26 141/62 95 Mechanical 06:00 (88) Ventilator 09/17/18 30 05:20 09/17/18 98.7 04:00 Intake and Output 09/16/18 09/16/18 09/17/18 1515:00 23:00 07:00 IntakeIntake Total 551.60 ml 839.76 ml 290.25 ml OutputOutput Total 875 ml 325 ml 290 ml BalanceBalance -323.40 ml 514.76 ml 0.25 ml Results Result Diagram: 09/17/1842909/17/18429 Medications Medications Current Medications Acetaminophen (Tylenol Liquid) 650 mg Q6H PRN NGT PAIN LEVEL 1-3 OR FEVER Last administered on 09/12/18 09:30; Admin Dose 650 MG; Start 09/09/18 at 16:30 Morphine Sulfate (morphine) 2 mg Q4H PRN IV PAIN LEVEL 7-10 Last administered on 09/13/18 10:11; Admin Dose 2 MG; Start 09/09/18 at 16:30 Pantoprazole (Protonix Iv) 40 mg DAILY@06 IV Last administered on 09/17/18 05:07; Admin Dose 40 MG; Start 09/10/18 at 06:00 Piperacillin Sod/ Tazobactam Sod 100 ml @ 200 mls/hr Q8 IVPB Last administered on 09/17/18 05:07; Admin Dose 200 MLS/HR; Start 09/09/18 at 22:00 Potassium Chloride (Potassium Chloride Pwd/Soln) 20 meq PER PROTOCOL PRN PO POTASSIUM REPLACEMENT PROTOCOL Last administered on 09/12/18 16:13; Admin Dose 20 MEQ; Start 09/10/18 at 09:00 Potassium Chloride (Potassium Chloride Pwd/Soln) 30 meq PER PROTOCOL PRN PO POTASSIUM REPLACEMENT PROTOCOL Last administered on 09/15/18 15:09; Admin Dose 30 MEQ; Start 09/10/18 at 09:00 Potassium Chloride (Potassium Chloride Pwd/Soln) 40 meq PER PROTOCOL PRN PO POTASSIUM REPLACEMENT PROTOCOL Last administered on 1/14/19at 23:38; Admin Dose 40 MEQ; Start 09/10/18 at 09:00 Miscellaneous Information 1 ea NOTE XX ; Start 09/12/18 at 04:30 Glucose (Glutose) 15 gm Q15M PRN PO DECREASED GLUCOSE; Start 09/12/18 at 04:30 Glucose (Glutose) 22.5 gm Q15M PRN PO DECREASED GLUCOSE; Start 09/12/18 at 04:30 Dextrose (D50w Syringe) 25 ml Q15M PRN IV DECREASED GLUCOSE; Start 09/12/18 at 04:30 Dextrose (D50w Syringe) 50 ml Q15M PRN IV DECREASED GLUCOSE; Start 09/12/18 at 04:30 Glucagon (Glucagen) 1 mg Q15M PRN IM DECREASED GLUCOSE; Start 09/12/18 at 04:30 Glucose (Glutose) 15 gm Q15M PRN BUCCAL DECREASED GLUCOSE; Start 09/12/18 at 04:30 Lorazepam (Ativan) 1 mg Q4H PRN IV agitation, anxiety Last administered on 09/17/18at 09:26; Admin Dose 1 MG; Start 09/13/18 at 11:00 Furosemide (Lasix) 20 mg DAILY@0600 IV Last administered on 09/17/18at 05:07; Admin Dose 20 MG; Start 09/14/18 at 06:00 Dexmedetomidine HCl 200 mcg/ Sodium Chloride 50 ml @ 0 mls/hr TITRATE IV Last administered on 09/17/18at 05:36; Admin Dose 19.5 MLS/HR; Start 09/13/18 at 16:30; Stop 09/17/18 at 19:00 Aspirin (Aspirin) 81 mg DAILY NGT Last administered on 09/17/18at 09:34; Admin Dose 81 MG; Start 09/14/18 at 09:30 Carvedilol (Coreg) 3.125 mg BID NGT Last administered on 09/17/18 09:35; Admin Dose 3.125 MG; Start 09/14/18 at 11:00 Hydralazine HCl (Apresoline) 10 mg Q4H PRN IV SBP ABOVE 160 Last administered on 09/16/18at 16:33; Admin Dose 10 MG; Start 09/14/18 at 12:00 Hydralazine HCl (Apresoline) 10 mg Q4H PRN IV SBP >170 Last administered on 09/17/18 04:15; Admin Dose 10 MG; Start 09/15/18 at 15:00 Fentanyl 100 ml @ 2.5 mls/hr TITRATE IV Last administered on 09/17/18 02:31; Admin Dose 7.5 MLS/HR; Start 09/16/18 at 10:00 Albuterol/ Ipratropium (Duoneb) 3 ml Q2H RESP THERAPY PRN HHN shortness of breath; Start 09/16/18 at 10:00 Budesonide (Pulmicort (Neb)) 0.5 mg BID RESP THERAPY HHN Last administered on 09/17/18at 09:53; Admin Dose 0.5 MG; Start 09/16/18 at 20:00 Albuterol (Ventolin Hfa) 4 puff Q6HWA RESP THERAPY INH Last administered on 09/16/18 20:24; Admin Dose 4 PUFF; Start 09/16/18 at 14:00 Ipratropium [place] (Atrovent Hfa) 4 puff Q6HWA RESP THERAPY INH Last administered on 09/16/18at 20:24; Admin Dose 4 PUFF; Start 09/16/18 at 14:00 Vancomycin HCl (Vanco Iv Per Pharmacy) VANCOMYCIN PER PHARMACY PER PROTOCOL XX ; Start 09/17/18 at 09:30 Hydralazine HCl (Apresoline) 25 mg Q6 PO ; Start 09/17/18 at 12:00 Isosorbide Dinitrate (Isordil) 20 mg TID NGT Last administered on 09/17/18at 11:22; Admin Dose 20 MG; Start 09/17/18 at 10:00 Vancomycin HCl 1.25 gm/Sodium Chloride 250 ml @ 83.333 mls/ hr ONCE IVPB Last administered on 09/17/18 11:12; Admin Dose 83.333 MLS/HR; Start 09/17/18 at 11:00; Stop 09/17/18 at 15:00 Vancomycin HCl 100 ml @ 100 mls/hr Q12H IVPB ; Start 09/17/18 at 23:00 Sodium Chloride 1,000 ml @ 70 mls/hr [id number] IV Last administered on 09/17/18at 11:11; Admin Dose 70 MLS/HR; Start 1/15/19 at 10:30 Propofol 100 ml @ 1.95 mls/hr Q12H IV Last administered on 09/17/18at 11:12; Admin Dose 3.9 MLS/HR; Start 09/17/18 at 10:30 VTE Prophylaxis Risk score (from Ns)>0 risk: 9 SCD applied (from Ns): Yes Lines/Catheters IV Catheter Type: Dave in Place: No Assessment/Plan Hospital Course Subjective Patient still intubated, sedated Objective Physical exam General: Patient is laying in bed intubated and sedated Mentation: Patient is sedated Head: Normocephalic atraumatic Eyes: EOMI, pupils reactive to light Neck: Supple, nontender, midline Respiratory: Clear to auscultation bilaterally Cardiovascular: regular rate, no obvious murmurs Gastrointestinal: non-tender to palpation, bowel sounds heard. Neurological: Moves all extremities spontaneously to noxious stimuli, however patient sedated and a full neurological exam is unable to be performed Skin: No new skin lesions Assessment/Plan 1. Acute hypoxic respiratory failure on mechanical ventilation - Pulm on board and appreciate consultation - Continue daily sedation vacations and CPAP trials - Patient initially does well once weaned off sedation but then gets very agitated and placed back on sedation. On Precedex this am again. will likely need propofol due to agitation 2. Vfib Cardiac arrest with ROSC s/p hypothermia protocol - Cardiology on board and appreciate consultation. Will continue current treatment with goal K >4 and Mg >2 - After being found down in Vfib arrest, patient underwent ACLS with 4 rounds of epi, Amiodarone x1, bicarb with ROSC. Patient noted with hypokalemia with K 2.1 at time of admission - ECHO reviewed and patient with poor EF 20%. - cardiac cath done 09/17/18, no significant stenosis, per cardiology will most likely need BIV ICD before discharge , but not currently stable. 3. Septic shock secondary to aspiration pneumonia- improving - Off pressor support and will wean from vent as tolerated - Continue antibiotics and neb treatments - CXR results show slight progression of right pneumonia - Nebs PRN - Lactic acid normalized - ID consulted 4. Transaminitis- improving - most likely secondary to hypoperfusion - trending down 5. HTN 6. Hypokalemia- improving - will continue replacing with goal >4 7. JULISSA- improving - Nephrology consultation appreciated. continue on lasix and off IVF 8. Disposition - Continue monitoring in ICU. Will attempt daily sedation holidays and CPAP trials >35 minutes of critical care time spent with patient and family at bedside PIYUSH SYED Sep 17, 2018 13:30
--- NOTE | 2018-09-17 14:48 | CONS ---
Date/Time of Note Date/Time of Note DATE: 09/17/18 TIME: 14:47 Assessment/Plan Assessment/Plan Hospital Course No acute events overnight patient is comfortable on vent no fevers looks comfortable. WBC 7.2 H&H 9 and 27.6 platelets 112 neutrophils 78.6 BUN 28 creatinine 0.88 Microbiology: Cultures had been negative Chest x-ray this morning revealed increased diffuse combination interstitial and alveolar infiltrates involving the right lung and lung base Indwelling's: Endotracheal tube, NG tube right IJ triple-lumen catheter, Dave Antimicrobials: Vancomycin, Zosyn Physical examination: This is well-developed well-nourished elderly - Afghan woman who is intubated sedated in no distress. Head atraumatic normocephalic sclera nonicteric. Neck is supple. Chest rise symmetrical breath sounds clear, diminished bases. Heart: S1-S2. Abdomen soft, bowel sounds present. Extremities without cyanosis. Assessment: 1. Sepsis, resolving 2. Pneumonia 3. Status post cardiopulmonary arrest 4. Hypertension Plan: Patient remained stable, status post coronary angiography this morning, no significant findings, she is on appropriate antibiotic therapy, we will will try to obtain sputum culture Discussed with family at bedside, discussed with RN Result Diagram: 09/17/18 0430 09/17/18 0430 Results 24hrs Laboratory Tests Test 09/16/18 18:37 09/17/18 04:30 09/17/18 07:00 Sodium Level 146 H 147 H Potassium Level 3.2 L 3.7 Chloride Level 112 H 113 H Carbon Dioxide Level 27 29 Anion Gap 7 5 Blood Urea Nitrogen 29 H 28 H Creatinine 0.92 0.88 Est Glomerular Filtrat > 60 > 60 Rate mL/min Glucose Level 125 127 Calcium Level 8.6 8.5 White Blood Count 7.2 Red Blood Count 3.00 L Hemoglobin 9.0 L Hematocrit 27.6 L Mean Corpuscular Volume 92.0 Mean Corpuscular Hemoglobin 30.0 Mean Corpuscular 32.6 Hemoglobin Concent Red Cell Distribution Width 14.3 Platelet Count 112 #L Mean Platelet Volume 11.5 H Immature Granulocytes % 3.100 H Neutrophils % 78.6 H Lymphocytes % 7.7 L Monocytes % 7.8 Eosinophils % 2.5 Basophils % 0.3 Nucleated Red Blood Cells % 0.0 Immature Granulocytes # 0.220 H Neutrophils # 5.6 Lymphocytes # 0.6 L Monocytes # 0.6 Eosinophils # 0.2 Basophils # 0.0 Nucleated Red Blood Cells # 0.0 Prothrombin Time 12.6 # Prothrombin Time Ratio 1.0 INR International 0.93 Normalized Ratio Magnesium Level 2.1 Total Bilirubin 0.2 Direct Bilirubin 0.00 Indirect Bilirubin 0.2 Aspartate Amino 50 H Transf (AST/SGOT) Alanine 89 H Aminotransferase (ALT/SGPT) Alkaline Phosphatase 189 H Creatine Kinase 137 Creatine Kinase Index 0.6 Creatinine Kinase MB (Mass) 0.87 Troponin I 0.013 B-Type Natriuretic Peptide 1260 H Total Protein 5.0 L Albumin 2.7 L Globulin 2.30 Albumin/Globulin Ratio 1.17 Blood Gas Specimen Source Blood arterial Arterial Blood Date Drawn 09/17/2018 9:41:44 AM Arterial Blood pH 7.427 (Temp corrected) Arterial Blood pCO2 40.8 (Temp correct) Arterial Blood pO2 71.7 L (Temp corrected) Arterial Blood HCO3 26.3 H Arterial Blood Base Excess 1.8 Arterial Blood 93.4 L Oxygen Saturation Brian Test ACCEPTAB Arterial Blood Gas Right Radial Puncture Site Arterial 0.3 Blood Carboxyhemoglobin Arterial Blood Methemoglobin 0.4 Blood Gas A-a O2 94.3 H Differential Oxyhemoglobin Percent 92.7 L Blood Gas Temperature 37.0 Blood Gas Respiration Rate 16.0 Blood Gas Actual 16 Respiration Rate Blood Gas Modality VENT - SIMV FiO2 30.0 Blood Gas Tidal Volume 500.0 Blood Gas Low PEEP Setting 5.0 Blood Gas Pressure Support 12 Blood Gas Notified Whom TM Blood Gas Notified Time 09/17/2018 9:52:33 AM Consultation Date/Type/Reason Admit Date/Time Sep 09, 2018 at 16:10 Initial Consult Date 09/10/18 Type of Consult id Requesting Provider: OZZIE ALVAREZ MD Exam/Review of Systems Vital Signs Vitals Vital Signs Date Temp Pulse Resp B/P (MAP) Pulse Ox O2 O2 Flow FiO2 Time Delivery Rate 09/17/18 52 16 96 30 13:30 09/17/18 100/55 13:00 (70) 09/17/18 97.8 12:00 09/17/18 Mechanical 06:00 Ventilator Intake and Output 09/16/18 09/16/18 09/17/18 1515:00 23:00 07:00 IntakeIntake Total 551.60 ml 839.76 ml 323.00 ml OutputOutput Total 875 ml 325 ml 640 ml BalanceBalance -323.40 ml 514.76 ml -317.00 ml Medications Medications Current Medications Acetaminophen (Tylenol Liquid) 650 mg Q6H PRN NGT PAIN LEVEL 1-3 OR FEVER Last administered on 09/12/18at 09:30; Admin Dose 650 MG; Start 09/09/18 at 16:30 Morphine Sulfate (morphine) 2 mg Q4H PRN IV PAIN LEVEL 7-10 Last administered on 09/13/18at 10:11; Admin Dose 2 MG; Start 09/09/18 at 16:30 Pantoprazole (Protonix Iv) 40 mg DAILY@06 IV Last administered on 09/17/18at 05:07; Admin Dose 40 MG; Start 09/10/18 at 06:00 Piperacillin Sod/ Tazobactam Sod 100 ml @ 200 mls/hr Q8 IVPB Last administered on 09/17/18at 05:07; Admin Dose 200 MLS/HR; Start 09/09/18 at 22:00 Potassium Chloride (Potassium Chloride Pwd/Soln) 20 meq PER PROTOCOL PRN PO POTASSIUM REPLACEMENT PROTOCOL Last administered on 09/12/18at 16:13; Admin Dose 20 MEQ; Start 09/10/18 at 09:00 Potassium Chloride (Potassium Chloride Pwd/Soln) 30 meq PER PROTOCOL PRN PO POTASSIUM REPLACEMENT PROTOCOL Last administered on 09/15/18at 15:09; Admin Dose 30 MEQ; Start 09/10/18 at 09:00 Potassium Chloride (Potassium Chloride Pwd/Soln) 40 meq PER PROTOCOL PRN PO POTASSIUM REPLACEMENT PROTOCOL Last administered on 09/16/18at 23:38; Admin Dose 40 MEQ; Start 09/10/18 at 09:00 Miscellaneous Information 1 ea NOTE XX ; Start 09/12/18 at 04:30 Glucose (Glutose) 15 gm Q15M PRN PO DECREASED GLUCOSE; Start 09/12/18 at 04:30 Glucose (Glutose) 22.5 gm Q15M PRN PO DECREASED GLUCOSE; Start 09/12/18 at 04:30 Dextrose (D50w Syringe) 25 ml Q15M PRN IV DECREASED GLUCOSE; Start 09/12/18 at 04:30 Dextrose (D50w Syringe) 50 ml Q15M PRN IV DECREASED GLUCOSE; Start 09/12/18 at 04:30 Glucagon (Glucagen) 1 mg Q15M PRN IM DECREASED GLUCOSE; Start 09/12/18 at 04:30 Glucose (Glutose) 15 gm Q15M PRN BUCCAL DECREASED GLUCOSE; Start 09/12/18 at 04:30 Lorazepam (Ativan) 1 mg Q4H PRN IV agitation, anxiety Last administered on 09/17/18 09:26; Admin Dose 1 MG; Start 09/13/18 at 11:00 Furosemide (Lasix) 20 mg DAILY@0600 IV Last administered on 09/17/18 05:07; Admin Dose 20 MG; Start 09/14/18 at 06:00 Dexmedetomidine HCl 200 mcg/ Sodium Chloride 50 ml @ 0 mls/hr TITRATE IV Last administered on 09/17/18 05:36; Admin Dose 19.5 MLS/HR; Start 09/13/18 at 16:30; Stop 09/17/18 at 19:00 Aspirin (Aspirin) 81 mg DAILY NGT Last administered on 09/17/18 09:34; Admin Dose 81 MG; Start 09/14/18 at 09:30 Carvedilol (Coreg) 3.125 mg BID NGT Last administered on 09/17/18 09:35; Admin Dose 3.125 MG; Start 09/14/18 at 11:00 Hydralazine HCl (Apresoline) 10 mg Q4H PRN IV SBP ABOVE 160 Last administered on 09/16/18 16:33; Admin Dose 10 MG; Start 09/14/18 at 12:00 Hydralazine HCl (Apresoline) 10 mg Q4H PRN IV SBP >170 Last administered on 09/17/18 04:15; Admin Dose 10 MG; Start 09/15/18 at 15:00 Fentanyl 100 ml @ 2.5 mls/hr TITRATE IV Last administered on 09/17/18 02:31; Admin Dose 7.5 MLS/HR; Start 09/16/18 at 10:00 Albuterol/ Ipratropium (Duoneb) 3 ml Q2H RESP THERAPY PRN HHN shortness of breath; Start 09/16/18 at 10:00 Budesonide (Pulmicort (Neb)) 0.5 mg BID RESP THERAPY HHN Last administered on 09/17/18 09:53; Admin Dose 0.5 MG; Start 09/16/18 at 20:00 Albuterol (Ventolin Hfa) 4 puff Q6HWA RESP THERAPY INH Last administered on 09/17/18at 13:36; Admin Dose 4 PUFF; Start 09/16/18 at 14:00 Ipratropium [place] (Atrovent Hfa) 4 puff Q6HWA RESP THERAPY INH Last administered on 09/17/18at 13:36; Admin Dose 4 PUFF; Start 09/16/18 at 14:00 Vancomycin HCl (Vanco Iv Per Pharmacy) VANCOMYCIN PER PHARMACY PER PROTOCOL XX ; Start 09/17/18 at 09:30 Hydralazine HCl (Apresoline) 25 mg Q6 PO ; Start 09/17/18 at 12:00 Isosorbide Dinitrate (Isordil) 20 mg TID NGT Last administered on 09/17/18at 11: 22; Admin Dose 20 MG; Start 09/17/18 at 10:00 Vancomycin HCl 1.25 gm/Sodium Chloride 250 ml @ 83.333 mls/ hr ONCE IVPB Last administered on 09/17/18at 11:12; Admin Dose 83.333 MLS/HR; Start 09/17/18 at 11:00; Stop 09/17/18 at 15:00 Vancomycin HCl 100 ml @ 100 mls/hr Q12H IVPB ; Start 09/17/18 at 23:00 Sodium Chloride 1,000 ml @ 70 mls/hr [id number] IV Last administered on 09/17/18at 11:11; Admin Dose 70 MLS/HR; Start 09/17/18 at 10:30 Propofol 100 ml @ 1.95 mls/hr Q12H IV Last administered on 09/17/18at 11:12; Admin Dose 3.9 MLS/HR; Start 09/17/18 at 10:30 MICHELLE RECINOS NP Sep 17, 2018 14:48
--- NOTE | 2018-09-17 17:32 | NUR ---
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 PT IS INTUBATED AND ON FENTANYL DRIP. PT AWAKE BUT VERY ANXIOUS AND AGITATED. PT'S DAUGHTER AND SON INLAW AT BEDSIDE. PT RETURNED TO ASSIST CONTROL BY RT DUE TO PT OVER BREATHING THE VENT.CARE GIVEN PER PROTOCOL
[2018-09-17] MEDS: VANCOMYCIN 500 MG (PMX) 100 ML IVPB SCH (23:10)
[2018-09-18] VITALS (30 sets, daily range): BP systolic 126–207; BP diastolic 54–94; PULSE 68–112; RESP 13–42
[2018-09-18] MEDS: SOD CHLORIDE 0.45% 1,000 ML IV SCH ×2 (00:48→14:36)
[2018-09-18] MEDS: FENTAnyl (DRIP) 1000 mcg/100mL 100 ML IV SCH (02:49)
--- NOTE | 2018-09-18 05:16 | NUR ---
EOSS Pt vitals within MD parameter. Remains on vent, spo2>95%. NO s/s of pain or acute distress overnight. Skin care provided. Turned q2h. Tolerating TF. Family updated regarding plan of care. Comfort and safety measures addressed, no other acute events to report.
[2018-09-18] MEDS: PIPER-TAZO 3.375 GM IV (PMX) 100 ML IVPB SCH ×3 (05:24→21:11)
[2018-09-18] MEDS: PANTOPRAZOLE 40 MG INJ IV SCH (05:24)
[2018-09-18] MEDS: FUROSEMIDE 20 MG INJ IV SCH (05:25)
--- NOTE | 2018-09-18 07:48 | RADRPT ---
Echocardiogram Report Patient Name: DIONNE SOLIS Gender: Female Date: 1955 Study Date: 17-Sep-2018 Winding Machine Operator: Sherif Colón RDCS Location: 110 Ref. Physician: DEMETRIUS GRAHAM Quality: Good Procedures: Transthoracic echocardiogram with complete 2D, M-Mode, and doppler examination. Indications: Cardiomyopathy. 2D/M Mode Doppler Measurement Value Normal Ranges Measurement Value Normal Ranges LVIDd 2D 3.5 3.5 - 5.6 cm SHANIKA Vmax 1.6 cm2 LVIDs 2D 2.8 2.1 - 4.1 cm SHANIKA VTI 1.7 cm2 FS 2D 20.9 % AV Mean Kaleb 1.3 m/sec LVPWd 2D 1.8 0.6 - 1.1 cm AV Mean PG 8.0 mmHg IVSd 2D 1.7 0.6 - 1.1 cm AV Peak Kaleb 2.0 m/sec IVS/LVPW 2D 0.9 AV Peak PG 16.0 mmHg AoR Diam 2D 2.9 2.0 - 3.7 cm AV VTI 43.7 cm LA/Ao 2D 1 0 - 1 LVOT Peak Kaleb 1.1 m/sec EDV 2D 42.9 cm3 LVOT Peak PG 5.0 mmHg ESV 2D 21.3 cm3 MV E Peak Kaleb 0.7 m/sec LA Dimen 2D 2.9 2.3 - 4.0 cm MV A Peak Kaleb 0.8 m/sec LVOT Area 2.8 cm2 MV E/A 0.8 MV Decel Time 176 msec MV E/A 0.8 TR Peak Kaleb 2.1 m/sec TR Peak PG 18.0 mmHg RVSP 33.0 mmHg RA Pressure 15.0 Findings Left Ventricle: Lower limits of normal systolic function. Normal left ventricular cavity size. Mild concentric left ventricular hypertrophy. Paradoxical septal motion consistent with IVCD or bundle branch block. Ejection fraction is visually estimated at 50 %. Tissue Doppler/Mitral Doppler indices are consistent with impaired relaxation (Stage I diastolic dysfunction). Right Ventricle: Normal right ventricular size. Normal right ventricular systolic function. Left Atrium: The left atrium is normal in size. Right Atrium: The right atrium is normal in size. Mitral Valve: Mitral valve leaflets appear mildly thickened. Mild mitral annular calcification. Trace mitral regurgitation. Aortic Valve: Aortic sclerosis without significant stenosis. Trace aortic valve regurgitation. Tricuspid Valve: Normal appearance of the tricuspid valve. Estimated peak PA systolic pressure 33 mmHg. There is mild tricuspid regurgitation. Pulmonic Valve: Normal pulmonic valve appearance. Pericardium: Normal pericardium with no significant pericardial effusion. Aorta: Normal aortic root. IVC: Dilated IVC without respiratory collapse, however, patient on ventilator. Conclusions Lower limits of normal systolic function. Normal left ventricular cavity size. Mild concentric left ventricular hypertrophy. Paradoxical septal motion consistent with IVCD or bundle branch block. Ejection fraction is visually estimated at 50 %. Tissue Doppler/Mitral Doppler indices are consistent with impaired relaxation (Stage I diastolic dysfunction). Compared to echo done on September 10, 2018 ejection fraction has significantly improved now. Mitral valve leaflets appear mildly thickened. Mild mitral annular calcification. Trace mitral regurgitation. Aortic sclerosis without significant stenosis. Trace aortic valve regurgitation. Normal appearance of the tricuspid valve. Estimated peak PA systolic pressure 33 mmHg. There is mild tricuspid regurgitation. Dilated IVC without respiratory collapse, however, patient on ventilator. Electronically Signed By: Demetrius Graham 18-Sep-2018 07:47:44 -0800 Patient Name: DIONNE SOLIS Study Date: 17-Sep-2018 [id number]
[2018-09-18] MEDS: ALBUTEROL HFA 8 GM INHALER INH SCH (08:00)
[2018-09-18] MEDS ORDERED: POTASSIUM CHLORIDE 20 MEQ POWDER FOR ORAL SOLN NGT ONE (08:00)
[2018-09-18] MEDS: IPRATROPIUM (HFA) 12.9 GM INHALER INH SCH (08:00)
--- NOTE | 2018-09-18 08:12 | CONS ---
Date/Time of Note Date/Time of Note DATE: 09/18/18 TIME: 08:07 Consult Date/Type/Reason Admit Date/Time Sep 09, 2018 at 16:10 Initial Consult Date 09/10/18 Type of Consultation: CV Requesting Provider: OZZIE ALVAREZ MD Subjective Interventional cardiology follow-up progress note/critical care note Subjective: Case discussed with the staff and rhythm was reviewed. Patient remains in sinus rhythm sinus bradycardia/NSR no VT. d/w multiple physicians Patient remains intubated on vent in ICU and unable to wean off. D/W daughter and son in law 09/17/18: [facility] iva shows no significant obstructive coronary artery disease O: General: Status post intubation on the vent HEENT: NC/AT. pupils are equal. round. NECK: no stridor. CV: RRR. systolic murmur; no gallop or rubs. PULM: no wheezing + rhonchi in the right side. GI: SOFT, NT, ND, no rebound or guarding Extremity: trace B/L LE edema. no clubbing. neuro: awake and alert follows command Psych: calm rectal: deferred Right femoral artery with no bleeding or hematoma CXR 09/16/18: Since the prior study, there has been no significant interval change in the appearance of the heart or lungs or position of tubes and lines allowing for slight differences in technique and positioning.. Tubes and lines remain in good position. Right lung infiltrate is again seen with slight fluid in the minor fissure. The left lung remains relatively clear. echo reviewed Normal left ventricular cavity size. Moderate concentric left ventricular hypertrophy. Severe global left ventricular systolic dysfunction. Ejection fraction is visually estimated at 20 %. Mitral valve leaflets appear mildly thickened. Mild mitral annular calcification. Trace mitral regurgitation. No significant aortic stenosis or insufficiency. Aortic cusps appear mildly calcified. Normal appearance of the tricuspid valve. Estimated peak PA systolic pressure 27 mmHg. There is mild tricuspid regurgitation. Dilated IVC without respiratory collapse, however, patient on ventilator. ECHO 09/17/18 reviewed personally: Lower limits of normal systolic function. Normal left ventricular cavity size. Mild concentric left ventricular hypertrophy. Paradoxical septal motion consistent with IVCD or bundle branch block. Ejection fraction is visually estimated at 50 %. Tissue Doppler/Mitral Doppler indices are consistent with impaired relaxation (Stage I diastolic dysfunction). Compared to echo done on September 10, 2018 ejection fraction has significantly improved now. Mitral valve leaflets appear mildly thickened. Mild mitral annular calcification. Trace mitral regurgitation. Aortic sclerosis without significant stenosis. Trace aortic valve regurgitation. Normal appearance of the tricuspid valve. Estimated peak PA systolic pressure 33 mmHg. There is mild tricuspid regurgitation. Dilated IVC without respiratory collapse, however, patient on ventilator. Objective Vital Signs Date Temp Pulse Resp B/P (MAP) Pulse Ox O2 O2 Flow FiO2 Time Delivery Rate 09/18/18 78 15 130/60 100 Mechanical 06:00 (83) Ventilator 09/18/18 30 05:09 09/18/18 98.7 04:00 Intake and Output 09/17/18 09/17/18 09/18/18 1515:00 23:00 07:00 IntakeIntake Total 563.63 ml 1319 ml 1185 ml OutputOutput Total 1100 ml 380 ml 215 ml BalanceBalance -536.37 ml 939 ml 970 ml Results/Medications Result Diagram: 09/18/18 0445 09/18/18 0445 Results 24 hrs Laboratory Tests Test 09/18/18 04:45 White Blood Count 8.7 # Red Blood Count 2.59 L Hemoglobin 7.8 L Hematocrit 24.4 L Mean Corpuscular Volume 94.2 Mean Corpuscular Hemoglobin 30.1 Mean Corpuscular Hemoglobin Concent 32.0 Red Cell Distribution Width 14.6 H Platelet Count 142 # Mean Platelet Volume 11.7 H Immature Granulocytes % 1.500 H Neutrophils % 86.9 H Lymphocytes % 4.9 L Monocytes % 5.2 Eosinophils % 1.3 Basophils % 0.2 Nucleated Red Blood Cells % 0.0 Immature Granulocytes # 0.130 H Neutrophils # 7.6 H Lymphocytes # 0.4 L Monocytes # 0.5 Eosinophils # 0.1 Basophils # 0.0 Nucleated Red Blood Cells # 0.0 Sodium Level 145 H Potassium Level 3.5 Chloride Level 112 H Carbon Dioxide Level 29 Anion Gap 4 L Blood Urea Nitrogen 26 H Creatinine 0.90 Est Glomerular Filtrat Rate mL/min > 60 Glucose Level 125 Calcium Level 8.3 L Magnesium Level 2.1 Total Bilirubin 0.1 L Direct Bilirubin 0.00 Indirect Bilirubin 0.1 Aspartate Amino Transf (AST/SGOT) 59 H Alanine Aminotransferase (ALT/SGPT) 81 H Alkaline Phosphatase 155 H B-Type Natriuretic Peptide 1110 H Total Protein 5.2 L Albumin 2.7 L Globulin 2.50 Albumin/Globulin Ratio 1.08 Medications Current Medications Acetaminophen (Tylenol Liquid) 650 mg Q6H PRN NGT PAIN LEVEL 1-3 OR FEVER Last administered on 09/12/18at 09:30; Admin Dose 650 MG; Start 09/09/18 at 16:30 Morphine Sulfate (morphine) 2 mg Q4H PRN IV PAIN LEVEL 7-10 Last administered on 09/13/18at 10:11; Admin Dose 2 MG; Start 09/09/18 at 16:30 Pantoprazole (Protonix Iv) 40 mg DAILY@06 IV Last administered on 09/18/18at 05:24; Admin Dose 40 MG; Start 09/10/18 at 06:00 Piperacillin Sod/ Tazobactam Sod 100 ml @ 200 mls/hr Q8 IVPB Last administered on 09/18/18at 05:24; Admin Dose 200 MLS/HR; Start 09/09/18 at 22:00 Potassium Chloride (Potassium Chloride Pwd/Soln) 20 meq PER PROTOCOL PRN PO POTASSIUM REPLACEMENT PROTOCOL Last administered on 09/12/18at 16:13; Admin Dose 20 MEQ; Start 09/10/18 at 09:00 Potassium Chloride (Potassium Chloride Pwd/Soln) 30 meq PER PROTOCOL PRN PO PO TASSIUM REPLACEMENT PROTOCOL Last administered on 09/15/18at 15:09; Admin Dose 30 MEQ; Start 09/10/18 at 09:00 Potassium Chloride (Potassium Chloride Pwd/Soln) 40 meq PER PROTOCOL PRN PO POTASSIUM REPLACEMENT PROTOCOL Last administered on 09/16/18at 23:38; Admin Dose 40 MEQ; Start 09/10/18 at 09:00 Miscellaneous Information 1 ea NOTE XX ; Start 09/12/18 at 04:30 Glucose (Glutose) 15 gm Q15M PRN PO DECREASED GLUCOSE; Start 09/12/18 at 04:30 Glucose (Glutose) 22.5 gm Q15M PRN PO DECREASED GLUCOSE; Start 09/12/18 at 04:30 Dextrose (D50w Syringe) 25 ml Q15M PRN IV DECREASED GLUCOSE; Start 09/12/18 at 04:30 Dextrose (D50w Syringe) 50 ml Q15M PRN IV DECREASED GLUCOSE; Start 09/12/18 at 04:30 Glucagon (Glucagen) 1 mg Q15M PRN IM DECREASED GLUCOSE; Start 09/12/18 at 04:30 Glucose (Glutose) 15 gm Q15M PRN BUCCAL DECREASED GLUCOSE; Start 09/12/18 at 04:30 Lorazepam (Ativan) 1 mg Q4H PRN IV agitation, anxiety Last administered on 09/17/18 09:26; Admin Dose 1 MG; Start 09/13/18 at 11:00 Furosemide (Lasix) 20 mg DAILY@0600 IV Last administered on 09/18/18 05:25; Admin Dose 20 MG; Start 09/14/18 at 06:00 Aspirin (Aspirin) 81 mg DAILY NGT Last administered on 09/17/18 09:34; Admin Dose 81 MG; Start 09/14/18 at 09:30 Carvedilol (Coreg) 3.125 mg BID NGT Last administered on 09/17/18 21:19; Admin Dose 3.125 MG; Start 09/14/18 at 11:00 Hydralazine HCl (Apresoline) 10 mg Q4H PRN IV SBP ABOVE 160 Last administered on 09/16/18at 16:33; Admin Dose 10 MG; Start 09/14/18 at 12:00 Hydralazine HCl (Apresoline) 10 mg Q4H PRN IV SBP >170 Last administered on 09/17/18 04:15; Admin Dose 10 MG; Start 09/15/18 at 15:00 Fentanyl 100 ml @ 2.5 mls/hr TITRATE IV Last administered on 09/18/18 02:49; Admin Dose 8 MLS/HR; Start 09/16/18 at 10:00 Albuterol/ Ipratropium (Duoneb) 3 ml Q2H RESP THERAPY PRN HHN shortness of breath; Start 09/16/18 at 10:00 Budesonide (Pulmicort (Neb)) 0.5 mg BID RESP THERAPY HHN Last administered on 09/17/18at 20:59; Admin Dose 0.5 MG; Start 09/16/18 at 20:00 Albuterol (Ventolin Hfa) 4 puff Q6HWA RESP THERAPY INH Last administered on 09/17/18at 19:38; Admin Dose 4 PUFF; Start 09/16/18 at 14:00 Ipratropium [place] (Atrovent Hfa) 4 puff Q6HWA RESP THERAPY INH Last administered on 09/17/18at 19:38; Admin Dose 4 PUFF; Start 09/16/18 at 14:00 Vancomycin HCl (Vanco Iv Per Pharmacy) VANCOMYCIN PER PHARMACY PER PROTOCOL XX ; Start 09/17/18 at 09:30 Hydralazine HCl (Apresoline) 25 mg Q6 PO Last administered on 09/18/18at 05:24; Admin Dose 25 MG; Start 09/17/18 at 12:00 Isosorbide Dinitrate (Isordil) 20 mg TID NGT Last administered on 09/17/18at 21:19; Admin Dose 20 MG; Start 09/17/18 at 10:00 Vancomycin HCl 100 ml @ 100 mls/hr Q12H IVPB Last administered on 09/17/18at 23:10; Admin Dose 100 MLS/HR; Start 09/17/18 at 23:00 Sodium Chloride 1,000 ml @ 70 mls/hr [id number] IV Last administered on 09/17/18at 11:11; Admin Dose 70 MLS/HR; Start 09/17/18 at 10:30 Propofol 100 ml @ 1.95 mls/hr Q12H IV Last administered on 09/17/18at 11:12; Admin Dose 3.9 MLS/HR; Start 09/17/18 at 10:30 Potassium Chloride (Potassium Chloride Pwd/Soln) 40 meq ONCE ONCE NGT ; Start 09/18/18 at 08:00; Stop 09/18/18 at 08:01; Status UNV Assessment/Plan Chief Complaint/Hosp Course 1. Status post cardiopulmonary arrest 2. Hypoxemic hypercapnic respiratory failure status post intubation on the vent 3. Right lung infiltrate consistent with pneumonia possible aspiration pneumonia 4. V. tach arrest: 5. Encephalopathy 6. Severe lactic acidosis: resolved 7. Hyperglycemia 8. Transaminitis 9. Severe hypokalemia: corrected 10. Positive troponin consistent with NSTEMI; given the fact that patient had normal coronaries this most likely secondary to CPR and cardiopulmonary arrest 11. Cardiomyopathy and probably hypertensive heart disease: improved now EF from 20%now up to 50% 12. JULISSA : improved now 13. thrombocytopenia:resolved now 14. Anemia Recommendations: Continue with vent support. weaning as tolerated cont tube feeding correct the potassium and Mg to keep K more than 4, magnesium more than 2 Antibiotic management will be deferred to internal medicine/pulmonary team Repeat echo showed significant improvement in LV systolic function. WILL continue pt on hydralazine/ isordil. will add ARB/ DUTCH later on if renal fx remains stable I will add Aldactone to her regimen as well. I will hold aspirin now given her worsening anemia. Will check the guaiac stool as well cont ICU care. full code for now More than 36 minutes of critical care time was for management treatment is critically patient excluding any procedures Thank you for his referral. We will continue to follow along with you DEMETRIUS MCCRAY MD [facility] DEMETRIUS MCCRAY MD Sep 18, 2018 08:12
[2018-09-18] MEDS: BUDESONIDE (NEB) 0.5MG/2ML AMP HHN SCH ×2 (08:55→20:16)
--- NOTE | 2018-09-18 09:29 | CONS ---
Date/Time of Note Date/Time of Note DATE: 09/18/18 TIME: 09:28 Assessment/Plan Assessment/Plan Hospital Course ASSESSMENT AND PLAN: This is a 63-year-old female who presented with: 1. Non oliguric Acute renal failure. Also noted the patient with a creatinine was 0.89 on 09/09/2018. Since then, the patient was in cardiogenic shock, received CPR, was in V-fib arrest. Patient was also started on vancomycin/Zosyn and currently CVPs are 15 to 16. CVP improved, Cr stable now , CVP mUCH improved 2. Hypokalemia could be secondary to vomiting on admission; however, patient was also given diuretics currently. 3. V-fibrillation cardiac arrest with EF of 20%. This post left heart cath on 09/17/2018 with no evidence of ischemic disease 4. Shock secondary to cardiogenic likely/aspiration pneumonia. 5. Acute hypoxic respiratory failure, intubated. 6. Transaminitis. 7. Hypertension. 8 hyper natremia Recs - cw FWF - flush sahni> if urine does not clear> urology - hold off anticogualants - HB 7.8> 1 UNIT PRBC today - Cr normalised - Monitor BMP - monitor UOP - abx per ID - renally dose all meds - avoid nephrotxins Result Diagram: 09/18/18 0445 09/18/18 0445 Results 24hrs Laboratory Tests Test 09/18/18 04:45 White Blood Count 8.7 # Red Blood Count 2.59 L Hemoglobin 7.8 L Hematocrit 24.4 L Mean Corpuscular Volume 94.2 Mean Corpuscular Hemoglobin 30.1 Mean Corpuscular Hemoglobin Concent 32.0 Red Cell Distribution Width 14.6 H Platelet Count 142 # Mean Platelet Volume 11.7 H Immature Granulocytes % 1.500 H Neutrophils % 86.9 H Lymphocytes % 4.9 L Monocytes % 5.2 Eosinophils % 1.3 Basophils % 0.2 Nucleated Red Blood Cells % 0.0 Immature Granulocytes # 0.130 H Neutrophils # 7.6 H Lymphocytes # 0.4 L Monocytes # 0.5 Eosinophils # 0.1 Basophils # 0.0 Nucleated Red Blood Cells # 0.0 Sodium Level 145 H Potassium Level 3.5 Chloride Level 112 H Carbon Dioxide Level 29 Anion Gap 4 L Blood Urea Nitrogen 26 H Creatinine 0.90 Est Glomerular Filtrat Rate mL/min > 60 Glucose Level 125 Calcium Level 8.3 L Magnesium Level 2.1 Total Bilirubin 0.1 L Direct Bilirubin 0.00 Indirect Bilirubin 0.1 Aspartate Amino Transf (AST/SGOT) 59 H Alanine Aminotransferase (ALT/SGPT) 81 H Alkaline Phosphatase 155 H B-Type Natriuretic Peptide 1110 H Total Protein 5.2 L Albumin 2.7 L Globulin 2.50 Albumin/Globulin Ratio 1.08 Consultation Date/Type/Reason Admit Date/Time Sep 09, 2018 at 16:10 Initial Consult Date 09/10/18 Requesting Provider: OZZIE ALVAREZ MD 24 HR Interval Summary Free Text/Dictation haematuria noted on D51/2 NS Exam/Review of Systems Vital Signs Vitals Vital Signs Date Temp Pulse Resp B/P (MAP) Pulse Ox O2 O2 Flow FiO2 Time Delivery Rate 09/18/18 78 15 130/60 100 Mechanical 06:00 (83) Ventilator 09/18/18 30 05:09 09/18/18 98.7 04:00 Intake and Output 09/17/18 09/17/18 09/18/18 1515:00 23:00 07:00 IntakeIntake Total 563.63 ml 1319 ml 1185 ml OutputOutput Total 1100 ml 380 ml 215 ml BalanceBalance -536.37 ml 939 ml 970 ml Exam GENERAL: Patient is able to open eyes, moving extremities, follow some commands, intubated NECK: Supple. HEART: Regular rate and rhythm. LUNGS: Decreased breath sounds bilaterally, especially on the right. ABDOMEN: Soft, nontender, nondistended, positive normoactive bowel sounds. EXTREMITIES: No clubbing, cyanosis, or edema. NEUROLOGIC: opens eyes Medications Medications Current Medications Acetaminophen (Tylenol Liquid) 650 mg Q6H PRN NGT PAIN LEVEL 1-3 OR FEVER Last administered on 09/12/18at 09:30; Admin Dose 650 MG; Start 09/09/18 at 16:30 Morphine Sulfate (morphine) 2 mg Q4H PRN IV PAIN LEVEL 7-10 Last administered on 09/13/18at 10:11; Admin Dose 2 MG; Start 09/09/18 at 16:30 Pantoprazole (Protonix Iv) 40 mg DAILY@06 IV Last administered on 09/18/18at 05:24; Admin Dose 40 MG; Start 09/10/18 at 06:00 Piperacillin Sod/ Tazobactam Sod 100 ml @ 200 mls/hr Q8 IVPB Last administered on 09/18/18at 05:24; Admin Dose 200 MLS/HR; Start 09/09/18 at 22:00 Potassium Chloride (Potassium Chloride Pwd/Soln) 20 meq PER PROTOCOL PRN PO POTASSIUM REPLACEMENT PROTOCOL Last administered on 09/12/18at 16:13; Admin Dose 20 MEQ; Start 09/10/18 at 09:00 Potassium Chloride (Potassium Chloride Pwd/Soln) 30 meq PER PROTOCOL PRN PO POTASSIUM REPLACEMENT PROTOCOL Last administered on 09/15/18at 15:09; Admin Dose 30 MEQ; Start 09/10/18 at 09:00 Potassium Chloride (Potassium Chloride Pwd/Soln) 40 meq PER PROTOCOL PRN PO POTASSIUM REPLACEMENT PROTOCOL Last administered on 09/16/18at 23:38; Admin Dose 40 MEQ; Start 09/10/18 at 09:00 Miscellaneous Information 1 ea NOTE XX ; Start 09/12/18 at 04:30 Glucose (Glutose) 15 gm Q15M PRN PO DECREASED GLUCOSE; Start 09/12/18 at 04:30 Glucose (Glutose) 22.5 gm Q15M PRN PO DECREASED GLUCOSE; Start 09/12/18 at 04:30 Dextrose (D50w Syringe) 25 ml Q15M PRN IV DECREASED GLUCOSE; Start 09/12/18 at 04:30 Dextrose (D50w Syringe) 50 ml Q15M PRN IV DECREASED GLUCOSE; Start 09/12/18 at 04:30 Glucagon (Glucagen) 1 mg Q15M PRN IM DECREASED GLUCOSE; Start 09/12/18 at 04:30 Glucose (Glutose) 15 gm Q15M PRN BUCCAL DECREASED GLUCOSE; Start 09/12/18 at 04:30 Lorazepam (Ativan) 1 mg Q4H PRN IV agitation, anxiety Last administered on 09/17/18at 09:26; Admin Dose 1 MG; Start 09/13/18 at 11:00 Furosemide (Lasix) 20 mg DAILY@0600 IV Last administered on 09/18/18at 05:25; Admin Dose 20 MG; Start 09/14/18 at 06:00 Aspirin (Aspirin) 81 mg DAILY NGT Last administered on 09/17/18at 09:34; Admin Dose 81 MG; Start 09/14/18 at 09:30; Status Hold Carvedilol (Coreg) 3.125 mg BID NGT Last administered on 09/17/18 21:19; Admin Dose 3.125 MG; Start 09/14/18 at 11:00 Hydralazine HCl (Apresoline) 10 mg Q4H PRN IV SBP ABOVE 160 Last administered on 09/16/18at 16:33; Admin Dose 10 MG; Start 09/14/18 at 12:00 Hydralazine HCl (Apresoline) 10 mg Q4H PRN IV SBP >170 Last administered on 09/17/18 04:15; Admin Dose 10 MG; Start 09/15/18 at 15:00 Fentanyl 100 ml @ 2.5 mls/hr TITRATE IV Last administered on 09/18/18 02:49; Admin Dose 8 MLS/HR; Start 09/16/18 at 10:00 Albuterol/ Ipratropium (Duoneb) 3 ml Q2H RESP THERAPY PRN HHN shortness of breath; Start 09/16/18 at 10:00 Budesonide (Pulmicort (Neb)) 0.5 mg BID RESP THERAPY HHN Last administered on 09/17/18at 20:59; Admin Dose 0.5 MG; Start 09/16/18 at 20:00 Albuterol (Ventolin Hfa) 4 puff Q6HWA RESP THERAPY INH Last administered on 09/17/18at 19:38; Admin Dose 4 PUFF; Start 09/16/18 at 14:00 Ipratropium [place] (Atrovent Hfa) 4 puff Q6HWA RESP THERAPY INH Last administered on 09/17/18 19:38; Admin Dose 4 PUFF; Start 09/16/18 at 14:00 Vancomycin HCl (Vanco Iv Per Pharmacy) VANCOMYCIN PER PHARMACY PER PROTOCOL XX ; Start 09/17/18 at 09:30 Hydralazine HCl (Apresoline) 25 mg Q6 PO Last administered on 09/18/18at 05:24; Admin Dose 25 MG; Start 09/17/18 at 12:00 Isosorbide Dinitrate (Isordil) 20 mg TID NGT Last administered on 09/17/18 21:19; Admin Dose 20 MG; Start 09/17/18 at 10:00 Vancomycin HCl 100 ml @ 100 mls/hr Q12H IVPB Last administered on 09/17/18at 23:10; Admin Dose 100 MLS/HR; Start 09/17/18 at 23:00 Sodium Chloride 1,000 ml @ 70 mls/hr [id number] IV Last administered on 09/17/18at 11:11; Admin Dose 70 MLS/HR; Start 09/17/18 at 10:30 Propofol 100 ml @ 1.95 mls/hr Q12H IV Last administered on 09/17/18at 11:12; Admin Dose 3.9 MLS/HR; Start 09/17/18 at 10:30 Spironolactone (Aldactone) 25 mg DAILY NGT ; Start 09/18/18 at 09:00 RICHARD GIRARD MD Sep 18, 2018 09:29
[2018-09-18] MEDS: ISOSORBIDE DINITRATE 20 MG TAB NGT SCH ×3 (09:35→21:11)
[2018-09-18] MEDS: SPIRONOLACTONE 25 MG TAB NGT SCH (09:35)
[2018-09-18] MEDS: PROPOFOL 100 ML IV SCH (09:36)
[2018-09-18] MEDS: hydrALAzine 20 MG INJ IV PRN ×2 (10:09→14:34)
--- NOTE | 2018-09-18 10:42 | CONS ---
Date/Time of Note Date/Time of Note DATE: 09/18/18 TIME: 10:41 Consult Date/Type/Reason Admit Date/Time Sep 09, 2018 at 16:10 Initial Consult Date 09/10/18 Type of Consultation: Pulmonary ICU Requesting Provider: OZZIE ALVAREZ MD Subjective No events. Opens eyes follows simple commands. Intermittent agitation. Currently on weaning trial. Objective Vital Signs Date Temp Pulse Resp B/P (MAP) Pulse Ox O2 O2 Flow FiO2 Time Delivery Rate 09/18/18 68 08:00 09/18/18 15 130/60 100 Mechanical 06:00 (83) Ventilator 09/18/18 30 05:09 09/18/18 98.7 04:00 Intake and Output 09/17/18 09/17/18 09/18/18 1515:00 23:00 07:00 IntakeIntake Total 563.63 ml 1319 ml 1185 ml OutputOutput Total 1100 ml 380 ml 215 ml BalanceBalance -536.37 ml 939 ml 970 ml Exam GENERAL: Elderly appearing lady on mechanical ventilation orally intubated. VITAL SIGNS: per chart NECK: Supple. No JVD or lymphadenopathy. CARDIAC EXAM: S1, S2. No added sounds or murmurs. CHEST: diminished air entry bilaterally ABDOMEN: Soft, nontender. No guarding or rebound. EXTREMITIES: No cyanosis, clubbing edema +1, NEUROLOGIC: Generalized weakness. Results/Medications Result Diagram: 09/18/18 0445 09/18/18 0445 Results 24 hrs Laboratory Tests Test 09/18/18 04:45 09/18/18 09:45 White Blood Count 8.7 # Red Blood Count 2.59 L Hemoglobin 7.8 L Hematocrit 24.4 L Mean Corpuscular Volume 94.2 Mean Corpuscular Hemoglobin 30.1 Mean Corpuscular Hemoglobin Concent 32.0 Red Cell Distribution Width 14.6 H Platelet Count 142 # Mean Platelet Volume 11.7 H Immature Granulocytes % 1.500 H Neutrophils % 86.9 H Lymphocytes % 4.9 L Monocytes % 5.2 Eosinophils % 1.3 Basophils % 0.2 Nucleated Red Blood Cells % 0.0 Immature Granulocytes # 0.130 H Neutrophils # 7.6 H Lymphocytes # 0.4 L Monocytes # 0.5 Eosinophils # 0.1 Basophils # 0.0 Nucleated Red Blood Cells # 0.0 Sodium Level 145 H Potassium Level 3.5 Chloride Level 112 H Carbon Dioxide Level 29 Anion Gap 4 L Blood Urea Nitrogen 26 H Creatinine 0.90 Est Glomerular Filtrat Rate mL/min > 60 Glucose Level 125 Calcium Level 8.3 L Magnesium Level 2.1 Total Bilirubin 0.1 L Direct Bilirubin 0.00 Indirect Bilirubin 0.1 Aspartate Amino Transf (AST/SGOT) 59 H Alanine Aminotransferase (ALT/SGPT) 81 H Alkaline Phosphatase 155 H B-Type Natriuretic Peptide 1110 H Total Protein 5.2 L Albumin 2.7 L Globulin 2.50 Albumin/Globulin Ratio 1.08 Urine Color STRAW Urine Clarity CLEAR Urine pH 7.0 Urine Specific [place] 1.010 Urine Ketones NEGATIVE Urine Nitrite NEGATIVE Urine Bilirubin NEGATIVE Urine Urobilinogen NEGATIVE Urine Leukocyte Esterase NEGATIVE Urine Microscopic RBC > 182 H Urine Microscopic WBC 3 Urine Bacteria FEW A Urine Mucus FEW A Urine Hemoglobin 3+ H Urine Glucose NEGATIVE Urine Total Protein NEGATIVE Medications Current Medications Acetaminophen (Tylenol Liquid) 650 mg Q6H PRN NGT PAIN LEVEL 1-3 OR FEVER Last administered on 09/12/18 09:30; Admin Dose 650 MG; Start 09/09/18 at 16:30 Morphine Sulfate (morphine) 2 mg Q4H PRN IV PAIN LEVEL 7-10 Last administered on 09/13/18at 10:11; Admin Dose 2 MG; Start 09/09/18 at 16:30 Pantoprazole (Protonix Iv) 40 mg DAILY@06 IV Last administered on 09/18/18at 05:24; Admin Dose 40 MG; Start 09/10/18 at 06:00 Piperacillin Sod/ Tazobactam Sod 100 ml @ 200 mls/hr Q8 IVPB Last administered on 09/18/18at 05:24; Admin Dose 200 MLS/HR; Start 09/09/18 at 22:00 Potassium Chloride (Potassium Chloride Pwd/Soln) 20 meq PER PROTOCOL PRN PO POTASSIUM REPLACEMENT PROTOCOL Last administered on 09/12/18at 16:13; Admin Dose 20 MEQ; Start 09/10/18 at 09:00 Potassium Chloride (Potassium Chloride Pwd/Soln) 30 meq PER PROTOCOL PRN PO POTASSIUM REPLACEMENT PROTOCOL Last administered on 09/15/18 15:09; Admin Dose 30 MEQ; Start 09/10/18 at 09:00 Potassium Chloride (Potassium Chloride Pwd/Soln) 40 meq PER PROTOCOL PRN PO POTASSIUM REPLACEMENT PROTOCOL Last administered on 09/16/18at 23:38; Admin Dose 40 MEQ; Start 09/10/18 at 09:00 Miscellaneous Information 1 ea NOTE XX ; Start 09/12/18 at 04:30 Glucose (Glutose) 15 gm Q15M PRN PO DECREASED GLUCOSE; Start 09/12/18 at 04:30 Glucose (Glutose) 22.5 gm Q15M PRN PO DECREASED GLUCOSE; Start 09/12/18 at 04:30 Dextrose (D50w Syringe) 25 ml Q15M PRN IV DECREASED GLUCOSE; Start 09/12/18 at 04:30 Dextrose (D50w Syringe) 50 ml Q15M PRN IV DECREASED GLUCOSE; Start 09/12/18 at 04:30 Glucagon (Glucagen) 1 mg Q15M PRN IM DECREASED GLUCOSE; Start 09/12/18 at 04:30 Glucose (Glutose) 15 gm Q15M PRN BUCCAL DECREASED GLUCOSE; Start 09/12/18 at 04:30 Lorazepam (Ativan) 1 mg Q4H PRN IV agitation, anxiety Last administered on 09/17/18at 09:26; Admin Dose 1 MG; Start 09/13/18 at 11:00 Furosemide (Lasix) 20 mg DAILY@0600 IV Last administered on 09/18/18 05:25; Admin Dose 20 MG; Start 09/14/18 at 06:00 Aspirin (Aspirin) 81 mg DAILY NGT Last administered on 09/17/18 09:34; Admin Dose 81 MG; Start 09/14/18 at 09:30; Status Hold Carvedilol (Coreg) 3.125 mg BID NGT Last administered on 09/18/18at 09:36; Admin Dose 3.125 MG; Start 09/14/18 at 11:00 Hydralazine HCl (Apresoline) 10 mg Q4H PRN IV SBP ABOVE 160 Last administered on 09/18/18 10:09; Admin Dose 10 MG; Start 09/14/18 at 12:00 Hydralazine HCl (Apresoline) 10 mg Q4H PRN IV SBP >170 Last administered on 09/17/18at 04:15; Admin Dose 10 MG; Start 09/15/18 at 15:00 Fentanyl 100 ml @ 2.5 mls/hr TITRATE IV Last administered on 09/18/18at 02:49; Admin Dose 8 MLS/HR; Start 09/16/18 at 10:00 Albuterol/ Ipratropium (Duoneb) 3 ml Q2H RESP THERAPY PRN HHN shortness of claudio ath; Start 09/16/18 at 10:00 Budesonide (Pulmicort (Neb)) 0.5 mg BID RESP THERAPY HHN Last administered on 09/17/18 20:59; Admin Dose 0.5 MG; Start 09/16/18 at 20:00 Albuterol (Ventolin Hfa) 4 puff Q6HWA RESP THERAPY INH Last administered on 09/17/18 19:38; Admin Dose 4 PUFF; Start 09/16/18 at 14:00 Ipratropium [place] (Atrovent Hfa) 4 puff Q6HWA RESP THERAPY INH Last administered on 09/17/18 19:38; Admin Dose 4 PUFF; Start 09/16/18 at 14:00 Vancomycin HCl (Vanco Iv Per Pharmacy) VANCOMYCIN PER PHARMACY PER PROTOCOL XX ; Start 09/17/18 at 09:30 Hydralazine HCl (Apresoline) 25 mg Q6 PO Last administered on 09/18/18 05:24; Admin Dose 25 MG; Start 09/17/18 at 12:00 Isosorbide Dinitrate (Isordil) 20 mg TID NGT Last administered on 09/18/18 09:35; Admin Dose 20 MG; Start 09/17/18 at 10:00 Vancomycin HCl 100 ml @ 100 mls/hr Q12H IVPB Last administered on 09/17/18 23:10; Admin Dose 100 MLS/HR; Start 09/17/18 at 23:00 Sodium Chloride 1,000 ml @ 50 mls/hr Q20H IV Last administered on 09/17/18 11:11; Admin Dose 70 MLS/HR; Start 09/17/18 at 10:30 Propofol 100 ml @ 1.95 mls/hr Q12H IV Last administered on 09/17/18 11:12; Admin Dose 3.9 MLS/HR; Start 09/17/18 at 10:30 Spironolactone (Aldactone) 25 mg DAILY NGT Last administered on 09/18/18 09:35; Admin Dose 25 MG; Start 09/18/18 at 09:00 Assessment/Plan Chief Complaint/Hosp Course Assessment 1. Status post cardiopulmonary arrest 2. Resolving toxic metabolic encephalopathy 3. Electrolyte abnormalities 4. Probable aspiration pneumonia 5. Resolving acute renal failure likely ATN 6. Anemia likely dilutional no evidence of acute GI bleed Plan 1. Continue Precedex and fentanyl DC propofol 2. Weaning trial 3. Continue broad-spectrum antibiotics consider de-escalation of antibiotics 4. Replace electrolytes 5. Transfuse 1 unit packed red blood cells Long discussion with family at bedside Critical care time 40 minutes GERARDO INMAN MD, [facility] Sep 18, 2018 10:42
[2018-09-18] MEDS: VANCOMYCIN 500 MG (PMX) 100 ML IVPB SCH (11:59)
--- NOTE | 2018-09-18 14:14 | CONS ---
Date/Time of Note Date/Time of Note DATE: 09/18/18 TIME: 14:12 Assessment/Plan Assessment/Plan Hospital Course No acute changes. Patient tolerates weaning. No fevers overnight. WBC 8.7 neutrophils 86.9 BUN 26 creatinine 0.90 Chest x-ray this morning revealed improving infiltrates in the right upper lobe and bilateral lower lobes Microbiology: Cultures had been negative Indwelling's: Endotracheal tube, NG tube right IJ triple-lumen catheter, Dave Antimicrobials: Vancomycin, Zosyn Physical examination: This is well-developed well-nourished elderly - [place] woman who is intubated sedated in no distress. Head atraumatic normocephalic sclera nonicteric. Neck is supple. Chest rise symmetrical breath sounds clear, diminished bases. Heart: S1-S2. Abdomen soft, bowel sounds present. Extremities without cyanosis. Assessment: 1. Sepsis, resolving 2. Pneumonia 3. Status post cardiopulmonary arrest 4. Hypertension Plan: Patient remained stable, tolerates weaning, she is completing antibiotics Discussed with family at bedside, discussed with RN Result Diagram: 09/18/18 0445 09/18/18 0445 Results 24hrs Laboratory Tests Test 09/18/18 04:45 09/18/18 09:45 09/18/18 11:54 White Blood Count 8.7 # Red Blood Count 2.59 L Hemoglobin 7.8 L Hematocrit 24.4 L Mean Corpuscular Volume 94.2 Mean Corpuscular Hemoglobin 30.1 Mean Corpuscular 32.0 Hemoglobin Concent Red Cell Distribution Width 14.6 H Platelet Count 142 # Mean Platelet Volume 11.7 H Immature Granulocytes % 1.500 H Neutrophils % 86.9 H Lymphocytes % 4.9 L Monocytes % 5.2 Eosinophils % 1.3 Basophils % 0.2 Nucleated Red Blood Cells % 0.0 Immature Granulocytes # 0.130 H Neutrophils # 7.6 H Lymphocytes # 0.4 L Monocytes # 0.5 Eosinophils # 0.1 Basophils # 0.0 Nucleated Red Blood Cells # 0.0 Sodium Level 145 H Potassium Level 3.5 Chloride Level 112 H Carbon Dioxide Level 29 Anion Gap 4 L Blood Urea Nitrogen 26 H Creatinine 0.90 Est Glomerular Filtrat > 60 Rate mL/min Glucose Level 125 Calcium Level 8.3 L Magnesium Level 2.1 Total Bilirubin 0.1 L Direct Bilirubin 0.00 Indirect Bilirubin 0.1 Aspartate Amino 59 H Transf (AST/SGOT) Alanine 81 H Aminotransferase (ALT/SGPT) Alkaline Phosphatase 155 H B-Type Natriuretic Peptide 1110 H Total Protein 5.2 L Albumin 2.7 L Globulin 2.50 Albumin/Globulin Ratio 1.08 Urine Color STRAW Urine Clarity CLEAR Urine pH 7.0 Urine Specific [place] 1.010 Urine Ketones NEGATIVE Urine Nitrite NEGATIVE Urine Bilirubin NEGATIVE Urine Urobilinogen NEGATIVE Urine Leukocyte Esterase NEGATIVE Urine Microscopic RBC > 182 H Urine Microscopic WBC 3 Urine Bacteria FEW A Urine Mucus FEW A Urine Hemoglobin 3+ H Urine Glucose NEGATIVE Urine Total Protein NEGATIVE Blood Gas Specimen Source Blood arterial Arterial Blood Date Drawn 09/18/2018 12:00:55 PM Arterial Blood pH 7.457 H (Temp corrected) Arterial Blood pCO2 42.3 (Temp correct) Arterial Blood pO2 99.0 (Temp corrected) Arterial Blood HCO3 29.2 H Arterial Blood Base Excess 4.9 H Arterial Blood 97.2 Oxygen Saturation Brian Test ACCEPTAB Arterial Blood Gas Right Radial Puncture Site Arterial 0.3 Blood Carboxyhemoglobin Arterial Blood 0.5 Methemoglobin Blood Gas A-a O2 137.6 H Differential Oxyhemoglobin Percent 96.4 Blood Gas Temperature 37.0 Blood Gas Modality VENT - CPAP FiO2 40.0 Blood Gas Low PEEP Setting 5.0 Blood Gas Pressure Support 12 Blood Gas Notified Whom Sherif MOE Blood Gas Notified Time 09/18/2018 12:14:03 PM Consultation Date/Type/Reason Admit Date/Time Sep 09, 2018 at 16:10 Initial Consult Date 09/10/18 Type of Consult id Requesting Provider: OZZIE ALVAREZ MD Exam/Review of Systems Vital Signs Vitals Vital Signs Date Temp Pulse Resp B/P (MAP) Pulse Ox O2 O2 Flow FiO2 Time Delivery Rate 09/18/18 99.0 94 38 163/69 Mechanical 12:00 (100) Ventilator 09/18/18 99 11:00 09/18/18 30 08:00 Intake and Output 09/17/18 09/17/18 09/18/18 1515:00 23:00 07:00 IntakeIntake Total 563.63 ml 1319 ml 1313 ml OutputOutput Total 1100 ml 380 ml 215 ml BalanceBalance -536.37 ml 939 ml 1098 ml Medications Medications Current Medications Acetaminophen (Tylenol Liquid) 650 mg Q6H PRN NGT PAIN LEVEL 1-3 OR FEVER Last administered on 09/12/18at 09:30; Admin Dose 650 MG; Start 09/09/18 at 16:30 Morphine Sulfate (morphine) 2 mg Q4H PRN IV PAIN LEVEL 7-10 Last administered on 09/13/18at 10:11; Admin Dose 2 MG; Start 09/09/18 at 16:30 Pantoprazole (Protonix Iv) 40 mg DAILY@06 IV Last administered on 09/18/18at 05:24; Admin Dose 40 MG; Start 09/10/18 at 06:00 Piperacillin Sod/ Tazobactam Sod 100 ml @ 200 mls/hr Q8 IVPB Last administered on 09/18/18at 05:24; Admin Dose 200 MLS/HR; Start 09/09/18 at 22:00 Potassium Chloride (Potassium Chloride Pwd/Soln) 20 meq PER PROTOCOL PRN PO POTASSIUM REPLACEMENT PROTOCOL Last administered on 09/12/18at 16:13; Admin Dose 20 MEQ; Start 09/10/18 at 09:00 Potassium Chloride (Potassium Chloride Pwd/Soln) 30 meq PER PROTOCOL PRN PO POTASSIUM REPLACEMENT PROTOCOL Last administered on 09/15/18at 15:09; Admin Dose 30 MEQ; Start 09/10/18 at 09:00 Potassium Chloride (Potassium Chloride Pwd/Soln) 40 meq PER PROTOCOL PRN PO POTASSIUM REPLACEMENT PROTOCOL Last administered on 09/16/18at 23:38; Admin Dose 40 MEQ; Start 09/10/18 at 09:00 Miscellaneous Information 1 ea NOTE XX ; Start 09/12/18 at 04:30 Glucose (Glutose) 15 gm Q15M PRN PO DECREASED GLUCOSE; Start 09/12/18 at 04:30 Glucose (Glutose) 22.5 gm Q15M PRN PO DECREASED GLUCOSE; Start 09/12/18 at 04:30 Dextrose (D50w Syringe) 25 ml Q15M PRN IV DECREASED GLUCOSE; Start 09/12/18 at 04:30 Dextrose (D50w Syringe) 50 ml Q15M PRN IV DECREASED GLUCOSE; Start 09/12/18 at 04:30 Glucagon (Glucagen) 1 mg Q15M PRN IM DECREASED GLUCOSE; Start 09/12/18 at 04:30 Glucose (Glutose) 15 gm Q15M PRN BUCCAL DECREASED GLUCOSE; Start 09/12/18 at 04:30 Lorazepam (Ativan) 1 mg Q4H PRN IV agitation, anxiety Last administered on 09/17/18 09:26; Admin Dose 1 MG; Start 09/13/18 at 11:00 Furosemide (Lasix) 20 mg DAILY@0600 IV Last administered on 09/18/18 05:25; Admin Dose 20 MG; Start 09/14/18 at 06:00 Aspirin (Aspirin) 81 mg DAILY NGT Last administered on 09/17/18 09:34; Admin Dose 81 MG; Start 09/14/18 at 09:30; Status Hold Carvedilol (Coreg) 3.125 mg BID NGT Last administered on 09/18/18 09:36; Admin Dose 3.125 MG; Start 09/14/18 at 11:00 Hydralazine HCl (Apresoline) 10 mg Q4H PRN IV SBP ABOVE 160 Last administered on 09/18/18 10:09; Admin Dose 10 MG; Start 09/14/18 at 12:00 Hydralazine HCl (Apresoline) 10 mg Q4H PRN IV SBP >170 Last administered on 09/17/18 04:15; Admin Dose 10 MG; Start 09/15/18 at 15:00 Fentanyl 100 ml @ 2.5 mls/hr TITRATE IV Last administered on 09/18/18 02:49; Admin Dose 8 MLS/HR; Start 09/16/18 at 10:00 Albuterol/ Ipratropium (Duoneb) 3 ml Q2H RESP THERAPY PRN HHN shortness of breath; Start 09/16/18 at 10:00 Budesonide (Pulmicort (Neb)) 0.5 mg BID RESP THERAPY HHN Last administered on 09/18/18 08:55; Admin Dose 0.5 MG; Start 09/16/18 at 20:00 Albuterol (Ventolin Hfa) 4 puff Q6HWA RESP THERAPY INH Last administered on 09/18/18 08:00; Admin Dose 4 PUFF; Start 09/16/18 at 14:00 Ipratropium [place] (Atrovent Hfa) 4 puff Q6HWA RESP THERAPY INH Last administered on 09/18/18 08:00; Admin Dose 4 PUFF; Start 09/16/18 at 14:00 Vancomycin HCl (Vanco Iv Per Pharmacy) VANCOMYCIN PER PHARMACY PER PROTOCOL XX ; Start 09/17/18 at 09:30 Hydralazine HCl (Apresoline) 25 mg Q6 PO Last administered on 09/18/18at 05:24; Admin Dose 25 MG; Start 09/17/18 at 12:00 Isosorbide Dinitrate (Isordil) 20 mg TID NGT Last administered on 09/18/18at 09:35; Admin Dose 20 MG; Start 09/17/18 at 10:00 Vancomycin HCl 100 ml @ 100 mls/hr Q12H IVPB Last administered on 09/18/18at 11:59; Admin Dose 100 MLS/HR; Start 09/17/18 at 23:00 Sodium Chloride 1,000 ml @ 50 mls/hr Q20H IV Last administered on 09/17/18at 11:11; Admin Dose 70 MLS/HR; Start 09/17/18 at 10:30 Propofol 100 ml @ 1.95 mls/hr Q12H IV Last administered on 09/17/18at 11:12; Admin Dose 3.9 MLS/HR; Start 09/17/18 at 10:30 Spironolactone (Aldactone) 25 mg DAILY NGT Last administered on 09/18/18at 09:35; Admin Dose 25 MG; Start 09/18/18 at 09:00 Miscellaneous Information (*Rx Drug Level Order Reminder*) VANCO TROUGH @ 2,200 ONCE ONCE XX ; Start 09/18/18 at 22:00; Stop 09/18/18 at 22:01 MICHELLE RECINOS NP Sep 18, 2018 14:13
[2018-09-18] MEDS ORDERED: LISINOPRIL 20 MG TAB NGT SCH (14:30)
[2018-09-18] MEDS ORDERED: HALOPERIDOL 5 MG INJ IM PRN (16:00)
--- NOTE | 2018-09-18 16:01 | PN ---
Date/Time of Note Date/Time of Note DATE: 09/18/18 TIME: 15:59 Objective Vitals Vital Signs Date Temp Pulse Resp B/P (MAP) Pulse Ox O2 O2 Flow FiO2 Time Delivery Rate 09/18/18 101 42 156/71 99 Nasal 15:00 (99) Cannula 09/18/18 99.0 12:00 09/18/18 30 08:00 Intake and Output 09/17/18 09/17/18 09/18/18 1515:00 23:00 07:00 IntakeIntake Total 563.63 ml 1319 ml 1313 ml OutputOutput Total 1100 ml 380 ml 215 ml BalanceBalance -536.37 ml 939 ml 1098 ml Results Result Diagram: 09/18/18 0445 09/18/18444 Medications Medications Current Medications Acetaminophen (Tylenol Liquid) 650 mg Q6H PRN NGT PAIN LEVEL 1-3 OR FEVER Last administered on 09/12/18 09:30; Admin Dose 650 MG; Start 09/09/18 at 16:30 Morphine Sulfate (morphine) 2 mg Q4H PRN IV PAIN LEVEL 7-10 Last administered on 09/13/18 10:11; Admin Dose 2 MG; Start 09/09/18 at 16:30 Pantoprazole (Protonix Iv) 40 mg DAILY@06 IV Last administered on 09/18/18 05:24; Admin Dose 40 MG; Start 09/10/18 at 06:00 Piperacillin Sod/ Tazobactam Sod 100 ml @ 200 mls/hr Q8 IVPB Last administered on 09/18/18 14:29; Admin Dose 200 MLS/HR; Start 09/09/18 at 22:00 Potassium Chloride (Potassium Chloride Pwd/Soln) 20 meq PER PROTOCOL PRN PO POTASSIUM REPLACEMENT PROTOCOL Last administered on 09/12/18 16:13; Admin Dose 20 MEQ; Start 09/10/18 at 09:00 Potassium Chloride (Potassium Chloride Pwd/Soln) 30 meq PER PROTOCOL PRN PO POTASSIUM REPLACEMENT PROTOCOL Last administered on 09/15/18 15:09; Admin Dose 30 MEQ; Start 09/10/18 at 09:00 Potassium Chloride (Potassium Chloride Pwd/Soln) 40 meq PER PROTOCOL PRN PO POTASSIUM REPLACEMENT PROTOCOL Last administered on 09/16/18 23:38; Admin Dose 40 MEQ; Start 09/10/18 at 09:00 Miscellaneous Information 1 ea NOTE XX ; Start 09/12/18 at 04:30 Glucose (Glutose) 15 gm Q15M PRN PO DECREASED GLUCOSE; Start 09/12/18 at 04:30 Glucose (Glutose) 22.5 gm Q15M PRN PO DECREASED GLUCOSE; Start 09/12/18 at 04:30 Dextrose (D50w Syringe) 25 ml Q15M PRN IV DECREASED GLUCOSE; Start 09/12/18 at 04:30 Dextrose (D50w Syringe) 50 ml Q15M PRN IV DECREASED GLUCOSE; Start 09/12/18 at 04:30 Glucagon (Glucagen) 1 mg Q15M PRN IM DECREASED GLUCOSE; Start 09/12/18 at 04:30 Glucose (Glutose) 15 gm Q15M PRN BUCCAL DECREASED GLUCOSE; Start 09/12/18 at 04:30 Lorazepam (Ativan) 1 mg Q4H PRN IV agitation, anxiety Last administered on 09/17/18at 09:26; Admin Dose 1 MG; Start 09/13/18 at 11:00 Furosemide (Lasix) 20 mg DAILY@0600 IV Last administered on 09/18/18at 05:25; Admin Dose 20 MG; Start 09/14/18 at 06:00 Aspirin (Aspirin) 81 mg DAILY NGT Last administered on 09/17/18at 09:34; Admin Dose 81 MG; Start 09/14/18 at 09:30; Status Hold Carvedilol (Coreg) 3.125 mg BID NGT Last administered on 09/18/18at 09:36; Admin Dose 3.125 MG; Start 09/14/18 at 11:00 Hydralazine HCl (Apresoline) 10 mg Q4H PRN IV SBP ABOVE 160 Last administered on 09/18/18at 14:34; Admin Dose 10 MG; Start 09/14/18 at 12:00 Hydralazine HCl (Apresoline) 10 mg Q4H PRN IV SBP >170 Last administered on 09/17/18at 04:15; Admin Dose 10 MG; Start 09/15/18 at 15:00 Budesonide (Pulmicort (Neb)) 0.5 mg BID RESP THERAPY HHN Last administered on 09/18/18at 08:55; Admin Dose 0.5 MG; Start 09/16/18 at 20:00 Vancomycin HCl (Vanco Iv Per Pharmacy) VANCOMYCIN PER PHARMACY PER PROTOCOL XX ; Start 09/17/18 at 09:30 Hydralazine HCl (Apresoline) 25 mg Q6 PO Last administered on 09/18/18at 14:28; Admin Dose 25 MG; Start 09/17/18 at 12:00 Isosorbide Dinitrate (Isordil) 20 mg TID NGT Last administered on 09/18/18at 14:29; Admin Dose 20 MG; Start 09/17/18 at 10:00 Vancomycin HCl 100 ml @ 100 mls/hr Q12H IVPB Last administered on 09/18/18at 11:59; Admin Dose 100 MLS/HR; Start 09/17/18 at 23:00 Sodium Chloride 1,000 ml @ 50 mls/hr Q20H IV Last administered on 09/18/18at 14:36; Admin Dose 50 MLS/HR; Start 09/17/18 at 10:30 Spironolactone (Aldactone) 25 mg DAILY NGT Last administered on 09/18/18at 09:35; Admin Dose 25 MG; Start 09/18/18 at 09:00 Miscellaneous Information (*Rx Drug Level Order Reminder*) VANCO TROUGH @ 2,200 ONCE ONCE XX ; Start 09/18/18 at 22:00; Stop 09/18/18 at 22:01 Albuterol/ Ipratropium (Duoneb) 3 ml Q6H RESP THERAPY HHN ; Start 09/18/18 at 20:00 Lisinopril (Zestril) 20 mg DAILY NGT ; Start 09/18/18 at 14:30 Labetalol HCl (Labetalol) 10 mg Q4H PRN IV sbp>160; Start 09/18/18 at 14:30 VTE Prophylaxis Risk score (from Nsg)>0 risk: 10 SCD applied (from Nsg): Yes Lines/Catheters IV Catheter Type: Dave in Place: No Assessment/Plan Hospital Course Subjective Patient now extubated Objective Physical exam General: Patient is laying in bed, extubated Mentation: Patient is alert and somewhat oriented Head: Normocephalic atraumatic Eyes: EOMI, pupils reactive to light Neck: Supple, nontender, midline Respiratory: Clear to auscultation bilaterally Cardiovascular: regular rate, no obvious murmurs Gastrointestinal: non-tender to palpation, bowel sounds heard. Neurological: Moves all extremities spontaneously Skin: No new skin lesions Assessment/Plan 1. Acute hypoxic respiratory failure on mechanical ventilation - Pulm on board and appreciate consultation - extubated, monitor closely 2. Vfib Cardiac arrest with ROSC s/p hypothermia protocol - Cardiology on board and appreciate consultation. Will continue current treatment with goal K >4 and Mg >2 - After being found down in Vfib arrest, patient underwent ACLS with 4 rounds of epi, Amiodarone x1, bicarb with ROSC. Patient noted with hypokalemia with K 2.1 at time of admission - ECHO reviewed and patient with poor EF 20%. - cardiac cath done 09/17/18, no significant stenosis, per cardiology will most likely need BIV ICD before discharge 3. Septic shock secondary to aspiration pneumonia- improving - Off pressor support and will wean from vent as tolerated - Continue antibiotics and neb treatments - CXR results show slight progression of right pneumonia - Nebs PRN - Lactic acid normalized - ID consulted 4. Transaminitis- improving - most likely secondary to hypoperfusion - trending down 5. HTN 6. Hypokalemia- improving - will continue replacing with goal >4 7. JULISSA- improving - Nephrology consultation appreciated. continue on lasix and off IVF 8. Disposition - Continue monitoring in ICU. extubated today >35 minutes of critical care time spent with patient and family at bedside PIYUSH SYED Sep 18, 2018 16:00
[2018-09-18] MEDS: LABETALOL HCL 20MG INJ IV PRN (16:03)
--- NOTE | 2018-09-18 18:48 | NUR ---
Pt. extubated this afternoon to 6L NC. Tolerating well at this. She needs aggressive pulmonary toileting, encouraged to TCDB, has minimal secretions but is unable to successful cough them up at times. Patient is often tachypneic and shallow in her breathing, RN and family have encouraged her to breath in through her nose and out through her mouth. Has required several prn doses of BP meds. Remains hypertensive and tachypneic at this time. First thing this morning, sahni catheter showed gross hematuria, pts daughter stated that the catheter tubing was tangled and pulled on overnight, likely resulting in trauma and once Lasix was administered flushed blood out. Currently, urine is mostly clear. H&H slightly dropped overnight, 1 unit of blood was administered and CBC rechecked, result pending. Potassium replaced with 40 meqs, rechecked, result pending. Pt has moments of confusion, agitation and overall distrust of hospital staff, and other moments of clarity and orientation.
[2018-09-18] MEDS: ALBUTEROL/IPRATROPIUM (NEB) 3 ML AMP HHN SCH (20:11)
--- NOTE | 2018-09-18 23:00 | NUR ---
VANCOMYCIN PER RX S/O: Pt currently on vancomycin 500 ivpb q12h vs pneumonia. bun/cr 26/0.91 vancomycin trough 7.4 A/P: 1) renal fxn -- good 2) vancomycin trough-- below goal-- will increase dose to 1 gm q12 3) Rx will f/u
[2018-09-18] MEDS: VANCOMYCIN 1 GM 250 ML IVPB SCH (23:47)
[2018-09-19] VITALS (24 sets, daily range): BP systolic 123–184; BP diastolic 58–102; PULSE 67–97; RESP 19–48
[2018-09-19] MEDS: hydrALAzine 20 MG INJ IV PRN (01:04)
[2018-09-19] MEDS: ALBUTEROL/IPRATROPIUM (NEB) 3 ML AMP HHN SCH ×4 (01:44→20:02)
[2018-09-19] MEDS: PIPER-TAZO 3.375 GM IV (PMX) 100 ML IVPB SCH (05:22)
[2018-09-19] MEDS: PANTOPRAZOLE 40 MG INJ IV SCH (05:22)
[2018-09-19] MEDS: FUROSEMIDE 20 MG INJ IV SCH (05:22)
--- NOTE | 2018-09-19 07:30 | NUR ---
Shift Summary Patient's more awake, she needs frequent reorientation. Did a bedside swallow and she did well, got her up out of bed, she's weak and needs a two person assist. Still with elevated BP, medicated accordingly. Continues on proper plan of care.
[2018-09-19] MEDS: BUDESONIDE (NEB) 0.5MG/2ML AMP HHN SCH ×2 (07:56→20:02)
--- NOTE | 2018-09-19 08:01 | CONS ---
Date/Time of Note Date/Time of Note DATE: 09/19/18 TIME: 07:56 Consult Date/Type/Reason Admit Date/Time Sep 09, 2018 at 16:10 Initial Consult Date 09/10/18 Type of Consultation: cv Requesting Provider: OZZIE ALVAREZ MD Subjective Interventional cardiology follow-up progress note/critical care note Subjective: Case discussed with the staff and rhythm was reviewed. Patient remains in sinus rhythm . no VT. d/w multiple physicians Patient has been extubated but still in ICU D/W daughter and son in law pt has been hypertensive mostly. she denies any chest pain to me 09/17/18: [facility] iva shows no significant obstructive coronary artery disease O: General: no acute distress HEENT: NC/AT. pupils are equal. round. NECK: no stridor. CV: RRR. systolic murmur; no gallop or rubs. PULM: no wheezing + rhonchi in the right side. GI: SOFT, NT, ND, no rebound or guarding Extremity: trace B/L LE edema. no clubbing. neuro: awake and alert Ox 2 Psych: calm rectal: deferred Right femoral artery with no bleeding or hematoma CXR 09/16/18: Since the prior study, there has been no significant interval change in the appearance of the heart or lungs or position of tubes and lines allowing for slight differences in technique and positioning.. Tubes and lines remain in good position. Right lung infiltrate is again seen with slight fluid in the minor fissure. The left lung remains relatively clear. echo reviewed Normal left ventricular cavity size. Moderate concentric left ventricular hypertrophy. Severe global left ventricular systolic dysfunction. Ejection fraction is visually estimated at 20 %. Mitral valve leaflets appear mildly thickened. Mild mitral annular calcification. Trace mitral regurgitation. No significant aortic stenosis or insufficiency. Aortic cusps appear mildly calcified. Normal appearance of the tricuspid valve. Estimated peak PA systolic pressure 27 mmHg. There is mild tricuspid regurgitation. Dilated IVC without respiratory collapse, however, patient on ventilator. ECHO 09/17/18 reviewed personally: Lower limits of normal systolic function. Normal left ventricular cavity size. Mild concentric left ventricular hypertrophy. Paradoxical septal motion consistent with IVCD or bundle branch block. Ejection fraction is visually estimated at 50 %. Tissue Doppler/Mitral Doppler indices are consistent with impaired relaxation (Stage I diastolic dysfunction). Compared to echo done on September 10, 2018 ejection fraction has significantly improved now. Mitral valve leaflets appear mildly thickened. Mild mitral annular calcification. Trace mitral regurgitation. Aortic sclerosis without significant stenosis. Trace aortic valve regurgitation. Normal appearance of the tricuspid valve. Estimated peak PA systolic pressure 33 mmHg. There is mild tricuspid regurgitation. Dilated IVC without respiratory collapse, however, patient on ventilator. Objective Vital Signs Date Temp Pulse Resp B/P (MAP) Pulse Ox O2 O2 Flow FiO2 Time Delivery Rate 09/19/18 97 48 162/89 97 06:00 (113) 09/19/18 98.6 04:00 09/19/18 Nasal 4.0 01:44 Cannula 09/18/18 40 10:40 Intake and Output 09/18/18 09/18/18 09/19/18 1515:00 23:00 07:00 IntakeIntake Total 908 ml 1000 ml 900 ml OutputOutput Total 2500 ml 970 ml 1150 ml BalanceBalance -1592 ml 30 ml -250 ml Results/Medications Result Diagram: 09/19/18 0440 09/19/18 0440 Results 24 hrs Laboratory Tests Test 09/18/18 09:45 09/18/18 11:54 09/18/18 18:00 09/18/18 18:20 Urine Color STRAW Urine Clarity CLEAR Urine pH 7.0 Urine Specific 1.010 [place] Urine Ketones NEGATIVE Urine Nitrite NEGATIVE Urine Bilirubin NEGATIVE Urine NEGATIVE Urobilinogen Urine Leukocyte NEGATIVE Esterase Urine > 182 H Microscopic RBC Urine 3 Microscopic WBC Urine Bacteria FEW A Urine Mucus FEW A Urine 3+ H Hemoglobin Urine Glucose NEGATIVE Urine Total NEGATIVE Protein Blood Gas Blood arterial Specimen Source Arterial Blood 09/18/2018 12:00 Date Drawn :55 PM Arterial Blood 7.457 H pH (Temp corrected ) Arterial Blood 42.3 pCO2 (Temp correct) Arterial Blood 99.0 pO2 (Temp corrected ) Arterial Blood 29.2 H HCO3 Arterial Blood 4.9 H Base Excess Arterial Blood 97.2 Oxygen Saturati on Brian Test ACCEPTAB Arterial Blood Right Radial Gas Puncture Site Arterial 0.3 Blood Carboxyhe moglobin Arterial Blood 0.5 Methemoglobin Blood Gas A-a 137.6 H O2 Differential Oxyhemoglobin 96.4 Percent Blood Gas 37.0 Temperature Blood Gas VENT - CPAP Modality FiO2 40.0 Blood Gas Low 5.0 PEEP Setting Blood Gas 12 Pressure Support Blood Gas Sherif MOE Notified Whom Blood Gas 09/18/2018 12:14 Notified Time :03 PM Stool Occult NEGATIVE Blood White Blood 12.7 #H Count Red Blood Count 3.53 #L Hemoglobin 10.5 #L Hematocrit 32.5 #L Mean 92.1 Corpuscular Volume Mean 29.7 Corpuscular Hemoglobin Mean 32.3 Corpuscular Hemoglobin Conc ent Red Cell 15.1 H Distribution Width Platelet Count 208 # Mean Platelet 11.1 H Volume Immature 2.500 H Granulocytes % Neutrophils % 87.3 H Lymphocytes % 4.2 L Monocytes % 5.0 Eosinophils % 0.7 Basophils % 0.3 Nucleated Red 0.0 Blood Cells % Immature 0.320 H Granulocytes # Neutrophils # 11.1 H Lymphocytes # 0.5 L Monocytes # 0.6 Eosinophils # 0.1 Basophils # 0.0 Nucleated Red 0.0 Blood Cells # Sodium Level 143 Potassium Level 3.6 Chloride Level 106 Carbon Dioxide 31 Level Anion Gap 6 Blood Urea 19 Nitrogen Creatinine 0.78 Est Glomerular > 60 Filtrat Rate mL/min Glucose Level 145 Calcium Level 8.7 Test 09/18/18 22:01 09/19/18 04:40 09/19/18 05:22 09/19/18 07:00 Vancomycin 7.4 L Level Trough White Blood 13.9 H Count Red Blood Count 3.67 L Hemoglobin 11.1 L Hematocrit 33.3 L Mean 90.7 Corpuscular Volume Mean 30.2 Corpuscular Hemoglobin Mean 33.3 Corpuscular Hemoglobin Conc ent Red Cell 14.8 H Distribution Width Platelet Count 239 Mean Platelet 11.0 H Volume Immature 1.500 H Granulocytes % Neutrophils % Lymphocytes % Monocytes % Eosinophils % Basophils % Nucleated Red 0.0 Blood Cells % Immature 0.210 H Granulocytes # Neutrophils # Lymphocytes # Monocytes # Eosinophils # Basophils # Nucleated Red Blood Cells # Sodium Level 139 Potassium Level 3.7 Chloride Level 101 Carbon Dioxide 29 Level Anion Gap 9 Blood Urea 15 Nitrogen Creatinine 0.66 Est Glomerular > 60 Filtrat Rate mL/min Glucose Level 95 # Calcium Level 8.5 Phosphorus 2.7 Level Magnesium Level 1.8 Lab Scanned BLOOD TRANSFUSI Report ON Blood Gas Blood Specimen arterial Source Arterial Blood 09/19/2018 7:23 Date Drawn :13 AM Arterial Blood 7.489 H pH (Temp corrected ) Arterial Blood 38.2 pCO2 (Temp correct) Arterial Blood 89.6 pO2 (Temp corrected ) Arterial Blood 28.4 H HCO3 Arterial Blood 4.9 H Base Excess Arterial Blood 96.9 Oxygen Saturati on Brian Test ACCEPTAB Arterial Blood Right Radial Gas Puncture Site Arterial 0.1 Blood Carboxyhe moglobin Arterial Blood 0.4 Methemoglobin Blood Gas A-a 79.4 H O2 Differential Oxyhemoglobin 96.4 Percent Blood Gas 37.0 Temperature Blood Gas NASAL CANNULA Modality FiO2 30.0 Blood Gas TM Notified Whom Blood Gas 09/19/2018 7:49 Notified Time :45 AM Medications Current Medications Acetaminophen (Tylenol Liquid) 650 mg Q6H PRN NGT PAIN LEVEL 1-3 OR FEVER Last administered on 09/12/18 09:30; Admin Dose 650 MG; Start 09/09/18 at 16:30 Morphine Sulfate (morphine) 2 mg Q4H PRN IV PAIN LEVEL 7-10 Last administered on 09/13/18 10:11; Admin Dose 2 MG; Start 09/09/18 at 16:30 Pantoprazole (Protonix Iv) 40 mg DAILY@06 IV Last administered on 09/19/18 05:22; Admin Dose 40 MG; Start 09/10/18 at 06:00 Piperacillin Sod/ Tazobactam Sod 100 ml @ 200 mls/hr Q8 IVPB Last administered on 09/19/18 05:22; Admin Dose 200 MLS/HR; Start 09/09/18 at 22:00 Potassium Chloride (Potassium Chloride Pwd/Soln) 20 meq PER PROTOCOL PRN PO POTASSIUM REPLACEMENT PROTOCOL Last administered on 09/12/18at 16:13; Admin Dose 20 MEQ; Start 09/10/18 at 09:00 Potassium Chloride (Potassium Chloride Pwd/Soln) 30 meq PER PROTOCOL PRN PO POTASSIUM REPLACEMENT PROTOCOL Last administered on 09/15/18at 15:09; Admin Dose 30 MEQ; Start 09/10/18 at 09:00 Potassium Chloride (Potassium Chloride Pwd/Soln) 40 meq PER PROTOCOL PRN PO POTASSIUM REPLACEMENT PROTOCOL Last administered on 09/16/18at 23:38; Admin Dose 40 MEQ; Start 09/10/18 at 09:00 Miscellaneous Information 1 ea NOTE XX ; Start 09/12/18 at 04:30 Glucose (Glutose) 15 gm Q15M PRN PO DECREASED GLUCOSE; Start 09/12/18 at 04:30 Glucose (Glutose) 22.5 gm Q15M PRN PO DECREASED GLUCOSE; Start 09/12/18 at 04:30 Dextrose (D50w Syringe) 25 ml Q15M PRN IV DECREASED GLUCOSE; Start 09/12/18 at 04:30 Dextrose (D50w Syringe) 50 ml Q15M PRN IV DECREASED GLUCOSE; Start 09/12/18 at 04:30 Glucagon (Glucagen) 1 mg Q15M PRN IM DECREASED GLUCOSE; Start 09/12/18 at 04:30 Glucose (Glutose) 15 gm Q15M PRN BUCCAL DECREASED GLUCOSE; Start 09/12/18 at 04:30 Furosemide (Lasix) 20 mg DAILY@0600 IV Last administered on 09/19/18at 05:22; Admin Dose 20 MG; Start 09/14/18 at 06:00 Aspirin (Aspirin) 81 mg DAILY NGT Last administered on 09/17/18at 09:34; Admin Dose 81 MG; Start 09/14/18 at 09:30; Status Hold Carvedilol (Coreg) 3.125 mg BID NGT Last administered on 09/18/18at 21:12; Admin Dose 3.125 MG; Start 09/14/18 at 11:00 Hydralazine HCl (Apresoline) 10 mg Q4H PRN IV SBP ABOVE 160 Last administered on 09/19/18at 01:04; Admin Dose 10 MG; Start 09/14/18 at 12:00 Hydralazine HCl (Apresoline) 10 mg Q4H PRN IV SBP >170 Last administered on 09/17/18at 04:15; Admin Dose 10 MG; Start 09/15/18 at 15:00 Budesonide (Pulmicort (Neb)) 0.5 mg BID RESP THERAPY HHN Last administered on 09/18/18at 20:16; Admin Dose 0.5 MG; Start 09/16/18 at 20:00 Vancomycin HCl (Vanco Iv Per Pharmacy) VANCOMYCIN PER PHARMACY PER PROTOCOL XX ; Start 09/17/18 at 09:30 Hydralazine HCl (Apresoline) 25 mg Q6 PO Last administered on 09/19/18at 05:22; Admin Dose 25 MG; Start 09/17/18 at 12:00 Isosorbide Dinitrate (Isordil) 20 mg TID NGT Last administered on 09/18/18at 21:11; Admin Dose 20 MG; Start 09/17/18 at 10:00 Sodium Chloride 1,000 ml @ 50 mls/hr Q20H IV Last administered on 09/18/18at 14:36; Admin Dose 50 MLS/HR; Start 09/17/18 at 10:30 Spironolactone (Aldactone) 25 mg DAILY NGT Last administered on 09/18/18at 09:35; Admin Dose 25 MG; Start 09/18/18 at 09:00 Albuterol/ Ipratropium (Duoneb) 3 ml Q6H RESP THERAPY HHN Last administered on 09/19/18at 01:44; Admin Dose 3 ML; Start 09/18/18 at 20:00 Lisinopril (Zestril) 20 mg DAILY NGT Last administered on 09/18/18at 16:03; Admin Dose 20 MG; Start 09/18/18 at 14:30 Labetalol HCl (Labetalol) 10 mg Q4H PRN IV sbp>160 Last administered on 09/18/18at 16:03; Admin Dose 10 MG; Start 09/18/18 at 14:30 Haloperidol (Haldol) 5 mg Q8 PRN IM agitation; Start 09/18/18 at 16:00 Vancomycin HCl 250 ml @ 125 mls/hr Q12H IVPB Last administered on 09/18/18at 23:47; Admin Dose 125 MLS/HR; Start 09/18/18 at 23:00 Magnesium Sulfate 3 gm/Dextrose 106 ml @ 35.333 mls/ hr ONCE ONCE IVPB ; Start 09/19/18 at 08:00; Stop 09/19/18 at 10:59; Status UNV Potassium Chloride (Potassium Chloride Pwd/Soln) 20 meq ONCE ONCE PO ; Start 09/19/18 at 12:00; Stop 09/19/18 at 12:01; Status UNV Assessment/Plan Chief Complaint/Hosp Course 1. Status post cardiopulmonary arrest 2. Hypoxemic hypercapnic respiratory failure status post intubation on the vent: now extubated 3. Right lung infiltrate consistent with pneumonia possible aspiration pneumonia 4. s/p VF/ V. tach arrest: 5. Encephalopathy 6. Severe lactic acidosis: resolved 7. Hyperglycemia: resolved 8. Transaminitis 9. Severe hypokalemia: corrected 10. Positive troponin consistent with NSTEMI; however, given the fact that patient had normal coronaries this most likely secondary to CPR and cardiopulmonary arrest and not true [place] 11. Cardiomyopathy and hypertensive heart disease: EF improved from 20%now up to 50% 12. JULISSA : improved now 13. thrombocytopenia:resolved now 14. Anemia; s/p transfusion Recommendations: Continue with vent support. weaning as tolerated cont tube feeding correct the potassium and Mg to keep K more than 4, magnesium more than 2 Antibiotic management will be deferred to internal medicine/pulmonary team Repeat echo showed significant improvement in LV systolic function. WILL continue pt on hydralazine/ isordil. inc lisinopril and Aldactone and coreg . pt may have secondary HTN due to hyperaldosteronism ASA is on hold now given her worsening anemia and hematuria will need ICD placement once pt has recovered fully from pneumonia and ready to be discharged home. cont ICU care. full code for now More than 35 minutes of critical care time was for management treatment is critically patient excluding any procedures Thank you for his referral. We will continue to follow along with you DEMETRIUS MCCRAY MD [facility] DEMETRIUS MCCRAY MD Sep 19, 2018 08:01
--- NOTE | 2018-09-19 08:25 | CONS ---
Date/Time of Note Date/Time of Note DATE: 09/19/18 TIME: 08:23 Assessment/Plan Assessment/Plan Assessment/Plan Assessment and recommendations; next 1. Patient admitted with cardiac arrest due to hypokalemia leading to V. fib. Status post hypothermia protocol with excellent overall clinical status. Successfully extubated yesterday. 2. Extensive right-sided pneumonia with marked clinical and radiological improvement. 3. History of hypertension. 4. Acute renal injury with normalization of renal function. 5. Mild anemia. Continue current supportive care. Consider transfer to medical floor. Discontinue antibiotics in 24 hours. Result Diagram: 09/19/18 0440 09/19/18 0440 Results 24hrs Laboratory Tests Test 09/18/18 09:45 09/18/18 11:54 09/18/18 18:00 09/18/18 18:20 Urine Color STRAW Urine Clarity CLEAR Urine pH 7.0 Urine Specific 1.010 [place] Urine Ketones NEGATIVE Urine Nitrite NEGATIVE Urine Bilirubin NEGATIVE Urine NEGATIVE Urobilinogen Urine Leukocyte NEGATIVE Esterase Urine > 182 H Microscopic RBC Urine 3 Microscopic WBC Urine Bacteria FEW A Urine Mucus FEW A Urine 3+ H Hemoglobin Urine Glucose NEGATIVE Urine Total NEGATIVE Protein Blood Gas Blood arterial Specimen Source Arterial Blood 09/18/2018 12:00 Date Drawn :55 PM Arterial Blood 7.457 H pH (Temp corrected ) Arterial Blood 42.3 pCO2 (Temp correct) Arterial Blood 99.0 pO2 (Temp corrected ) Arterial Blood 29.2 H HCO3 Arterial Blood 4.9 H Base Excess Arterial Blood 97.2 Oxygen Saturati on Brian Test ACCEPTAB Arterial Blood Right Radial Gas Puncture Site Arterial 0.3 Blood Carboxyhe moglobin Arterial Blood 0.5 Methemoglobin Blood Gas A-a 137.6 H O2 Differential Oxyhemoglobin 96.4 Percent Blood Gas 37.0 Temperature Blood Gas VENT - CPAP Modality FiO2 40.0 Blood Gas Low 5.0 PEEP Setting Blood Gas 12 Pressure Support Blood Gas Sherif MOE Notified Whom Blood Gas 09/18/2018 12:14 Notified Time :03 PM Stool Occult NEGATIVE Blood White Blood 12.7 #H Count Red Blood Count 3.53 #L Hemoglobin 10.5 #L Hematocrit 32.5 #L Mean 92.1 Corpuscular Volume Mean 29.7 Corpuscular Hemoglobin Mean 32.3 Corpuscular Hemoglobin Conc ent Red Cell 15.1 H Distribution Width Platelet Count 208 # Mean Platelet 11.1 H Volume Immature 2.500 H Granulocytes % Neutrophils % 87.3 H Lymphocytes % 4.2 L Monocytes % 5.0 Eosinophils % 0.7 Basophils % 0.3 Nucleated Red 0.0 Blood Cells % Immature 0.320 H Granulocytes # Neutrophils # 11.1 H Lymphocytes # 0.5 L Monocytes # 0.6 Eosinophils # 0.1 Basophils # 0.0 Nucleated Red 0.0 Blood Cells # Sodium Level 143 Potassium Level 3.6 Chloride Level 106 Carbon Dioxide 31 Level Anion Gap 6 Blood Urea 19 Nitrogen Creatinine 0.78 Est Glomerular > 60 Filtrat Rate mL/min Glucose Level 145 Calcium Level 8.7 Test 09/18/18 22:01 09/19/18 04:40 09/19/18 05:22 09/19/18 07:00 Vancomycin 7.4 L Level Trough White Blood 13.9 H Count Red Blood Count 3.67 L Hemoglobin 11.1 L Hematocrit 33.3 L Mean 90.7 Corpuscular Volume Mean 30.2 Corpuscular Hemoglobin Mean 33.3 Corpuscular Hemoglobin Conc ent Red Cell 14.8 H Distribution Width Platelet Count 239 Mean Platelet 11.0 H Volume Immature 1.500 H Granulocytes % Neutrophils % Segmented 78 H Neutrophils % (Manual) Band 11 H Neutrophils % (Manual) Lymphocytes % Lymphocytes % 5 L (Manual) Monocytes % Monocytes % 4 (Manual) Eosinophils % Eosinophils % 1 (Manual) Basophils % Basophils % 1 (Manual) Nucleated Red 0.0 Blood Cells % Immature 0.210 H Granulocytes # Neutrophils # Neutrophils # 11.1 H (Manual) Band 1.5 H Neutrophils # Lymphocytes 0.6 L (Manual) Lymphocytes # Monocytes # Monocytes # 0.5 (Manual) Eosinophils # Basophils # Basophils # 0.1 H (Manual) Nucleated Red Blood Cells # Platelet NORMAL Estimate Polychromasia 1+ Anisocytosis 1+ Microcytosis 1+ Sodium Level 139 Potassium Level 3.7 Chloride Level 101 Carbon Dioxide 29 Level Anion Gap 9 Blood Urea 15 Nitrogen Creatinine 0.66 Est Glomerular > 60 Filtrat Rate mL/min Glucose Level 95 # Calcium Level 8.5 Phosphorus 2.7 Level Magnesium Level 1.8 Lab Scanned BLOOD TRANSFUSI Report ON Blood Gas Blood Specimen arterial Source Arterial Blood 09/19/2018 7:23 Date Drawn :13 AM Arterial Blood 7.489 H pH (Temp corrected ) Arterial Blood 38.2 pCO2 (Temp correct) Arterial Blood 89.6 pO2 (Temp corrected ) Arterial Blood 28.4 H HCO3 Arterial Blood 4.9 H Base Excess Arterial Blood 96.9 Oxygen Saturati on Brian Test ACCEPTAB Arterial Blood Right Radial Gas Puncture Site Arterial 0.1 Blood Carboxyhe moglobin Arterial Blood 0.4 Methemoglobin Blood Gas A-a 79.4 H O2 Differential Oxyhemoglobin 96.4 Percent Blood Gas 37.0 Temperature Blood Gas NASAL CANNULA Modality FiO2 30.0 Blood Gas TM Notified Whom Blood Gas 09/19/2018 7:49 Notified Time :45 AM Consultation Date/Type/Reason Admit Date/Time Sep 09, 2018 at 16:10 Initial Consult Date 09/10/18 Type of Consult Pulmonary/critical care History of presenting illness; patient is a 63-year-old lady who was brought into the hospital after found unresponsive. Patient underwent CPR and was in V. fib. Patient was successfully resuscitated intubated and transferred to ICU. By the time I saw her, patient is on mechanical ventilation and on hypothermia protocol. Patient also has remained hypotensive and on high-dose pressor support. Past medical history; 1. Hypertension. Medications; reviewed. Patient is currently on Versed 2 mg/h, fentanyl 50 mics per hour, Levophed 24 mics per minute, insulin drip 0.5 units/h, patient also is on hypothermia protocol with dialysis per protocol. Allergies; unknown. Family history, social history, occupational history is not available. Review of system; unable to be obtained. General exam; elderly female, orally intubated, paralyzed and sedated. Currently no distress. Requesting Provider: OZZIE ALVAREZ MD 24 HR Interval Summary Free Text/Dictation Patient's condition is markedly improved. Patient was successfully extubated yesterday. Has remained hemodynamically stable. Patient denies any shortness of breath, chest pain, abdominal pain, nausea vomiting. General exam; elderly female, awake alert, currently no distress, patient is conversant. Wants to eat something. Exam/Review of Systems Vital Signs Vitals Vital Signs Date Temp Pulse Resp B/P (MAP) Pulse Ox O2 O2 Flow FiO2 Time Delivery Rate 09/19/18 90 20 96 Nasal 3.0 07:57 Cannula 09/19/18 162/89 06:00 (113) 09/19/18 98.6 04:00 09/18/18 40 10:40 Intake and Output 09/18/18 09/18/18 09/19/18 1515:00 23:00 07:00 IntakeIntake Total 908 ml 1000 ml 900 ml OutputOutput Total 2500 ml 970 ml 1150 ml BalanceBalance -1592 ml 30 ml -250 ml Exam H EENT exam; supple neck, no JVD. No lymphadenopathy. Midline trachea. No thyromegaly. Patient has good dentition. Nasogastric tube in place. Pupils are equal and reactive to light. Chest exam; clear to auscultation. S1-S2 audible, no murmurs. Regular rhythm. Abdomen exam; soft, no organomegaly. Bowel sounds audible. Nontender. Extremity exam; no peripheral edema or clubbing. Pulses 1+. [employer]ENDING CONSULT[employer] exam; no focal deficit. Medications Medications Current Medications Acetaminophen (Tylenol Liquid) 650 mg Q6H PRN NGT PAIN LEVEL 1-3 OR FEVER Last administered on 09/12/18 09:30; Admin Dose 650 MG; Start 09/09/18 at 16:30 Morphine Sulfate (morphine) 2 mg Q4H PRN IV PAIN LEVEL 7-10 Last administered on 09/13/18 10:11; Admin Dose 2 MG; Start 09/09/18 at 16:30 Pantoprazole (Protonix Iv) 40 mg DAILY@06 IV Last administered on 09/19/18 05:22; Admin Dose 40 MG; Start 09/10/18 at 06:00 Piperacillin Sod/ Tazobactam Sod 100 ml @ 200 mls/hr Q8 IVPB Last administered on 09/19/18 05:22; Admin Dose 200 MLS/HR; Start 09/09/18 at 22:00 Potassium Chloride (Potassium Chloride Pwd/Soln) 20 meq PER PROTOCOL PRN PO POTASSIUM REPLACEMENT PROTOCOL Last administered on 09/12/18 16:13; Admin Dose 20 MEQ; Start 09/10/18 at 09:00 Potassium Chloride (Potassium Chloride Pwd/Soln) 30 meq PER PROTOCOL PRN PO POTASSIUM REPLACEMENT PROTOCOL Last administered on 09/15/18 15:09; Admin Dose 30 MEQ; Start 09/10/18 at 09:00 Potassium Chloride (Potassium Chloride Pwd/Soln) 40 meq PER PROTOCOL PRN PO POTASSIUM REPLACEMENT PROTOCOL Last administered on 09/16/18 23:38; Admin Dose 40 MEQ; Start 09/10/18 at 09:00 Miscellaneous Information 1 ea NOTE XX ; Start 09/12/18 at 04:30 Glucose (Glutose) 15 gm Q15M PRN PO DECREASED GLUCOSE; Start 09/12/18 at 04:30 Glucose (Glutose) 22.5 gm Q15M PRN PO DECREASED GLUCOSE; Start 09/12/18 at 04:30 Dextrose (D50w Syringe) 25 ml Q15M PRN IV DECREASED GLUCOSE; Start 09/12/18 at 04:30 Dextrose (D50w Syringe) 50 ml Q15M PRN IV DECREASED GLUCOSE; Start 09/12/18 at 04:30 Glucagon (Glucagen) 1 mg Q15M PRN IM DECREASED GLUCOSE; Start 09/12/18 at 04:30 Glucose (Glutose) 15 gm Q15M PRN BUCCAL DECREASED GLUCOSE; Start 09/12/18 at 04:30 Furosemide (Lasix) 20 mg DAILY@0600 IV Last administered on 09/19/18at 05:22; Admin Dose 20 MG; Start 09/14/18 at 06:00 Aspirin (Aspirin) 81 mg DAILY NGT Last administered on 09/17/18at 09:34; Admin Dose 81 MG; Start 09/14/18 at 09:30; Status Hold Hydralazine HCl (Apresoline) 10 mg Q4H PRN IV SBP ABOVE 160 Last administered on 09/19/18at 01:04; Admin Dose 10 MG; Start 09/14/18 at 12:00 Hydralazine HCl (Apresoline) 10 mg Q4H PRN IV SBP >170 Last administered on 09/17/18at 04:15; Admin Dose 10 MG; Start 09/15/18 at 15:00 Budesonide (Pulmicort (Neb)) 0.5 mg BID RESP THERAPY HHN Last administered on 09/19/18at 07:56; Admin Dose 0.5 MG; Start 09/16/18 at 20:00 Vancomycin HCl (Vanco Iv Per Pharmacy) VANCOMYCIN PER PHARMACY PER PROTOCOL XX ; Start 09/17/18 at 09:30 Hydralazine HCl (Apresoline) 25 mg Q6 PO Last administered on 09/19/18at 05:22; Admin Dose 25 MG; Start 09/17/18 at 12:00 Isosorbide Dinitrate (Isordil) 20 mg TID NGT Last administered on 09/18/18at 21:11; Admin Dose 20 MG; Start 09/17/18 at 10:00 Sodium Chloride 1,000 ml @ 50 mls/hr Q20H IV Last administered on 09/18/18at 14:36; Admin Dose 50 MLS/HR; Start 09/17/18 at 10:30 Spironolactone (Aldactone) 25 mg DAILY NGT Last administered on 09/18/18at 09:35; Admin Dose 25 MG; Start 09/18/18 at 09:00 Albuterol/ Ipratropium (Duoneb) 3 ml Q6H RESP THERAPY HHN Last administered on 09/19/18at 07:56; Admin Dose 3 ML; Start 09/18/18 at 20:00 Labetalol HCl (Labetalol) 10 mg Q4H PRN IV sbp>160 Last administered on 09/18/18at 16:03; Admin Dose 10 MG; Start 09/18/18 at 14:30 Haloperidol (Haldol) 5 mg Q8 PRN IM agitation; Start 09/18/18 at 16:00 Vancomycin HCl 250 ml @ 125 mls/hr Q12H IVPB Last administered on 09/18/18at 23:47; Admin Dose 125 MLS/HR; Start 09/18/18 at 23:00 Magnesium Sulfate 3 gm/Dextrose 106 ml @ 35.333 mls/ hr ONCE ONCE IVPB ; Start 09/19/18 at 09:00; Stop 09/19/18 at 11:59 Potassium Chloride (Potassium Chloride Pwd/Soln) 20 meq ONCE ONCE PO ; Start 09/19/18 at 12:00; Stop 09/19/18 at 12:01 Carvedilol (Coreg) 12.5 mg BID NGT ; Start 09/19/18 at 09:00 Lisinopril (Zestril) 20 mg BID NGT ; Start 09/19/18 at 09:00 ANABELLA LANTIGUA Sep 19, 2018 08:25
[2018-09-19] MEDS ORDERED: MAGNESIUM SULFATE 3 GM in DEXTROSE 5% 100 ML IVPB ONE (09:00)
[2018-09-19] MEDS: POTASSIUM CHLORIDE 20 MEQ POWDER FOR ORAL SOLN PO PRN (09:44)
[2018-09-19] MEDS: SPIRONOLACTONE 25 MG TAB NGT SCH (09:44)
[2018-09-19] MEDS: ISOSORBIDE DINITRATE 20 MG TAB NGT SCH ×3 (09:45→20:41)
[2018-09-19] MEDS: LISINOPRIL 20 MG TAB NGT SCH ×2 (09:45→20:41)
--- NOTE | 2018-09-19 10:06 | CONS ---
Date/Time of Note Date/Time of Note DATE: 09/19/18 TIME: 10:00 Assessment/Plan Assessment/Plan Hospital Course ASSESSMENT AND PLAN: This is a 63-year-old female who presented with: 1. Non oliguric Acute renal failure. Also noted the patient with a creatinine was 0.89 on 09/09/2018. Since then, the patient was in cardiogenic shock, received CPR, was in V-fib arrest. Patient was also started on vancomycin/Zosyn and currently CVPs are 15 to 16. CVP improved, Cr stable now , CVP mUCH improved 2. Hypokalemia could be secondary to vomiting on admission; however, patient was also given diuretics currently. 3. V-fibrillation cardiac arrest with EF of 20%. This post left heart cath on 09/17/2018 with no evidence of ischemic disease 4. Shock secondary to cardiogenic likely/aspiration pneumonia. 5. Acute hypoxic respiratory failure, intubated. 6. Transaminitis. 7. Hypertension. 8 hyper natremia 9 hematuria s/p sahni> cleared 10 HTN Recs - started on coreg 12.5 bid and lisnopril 20 bid - Cr back to baseline - Hematuria cleared - AICD per cards - Monitor BMP - monitor UOP - abx per ID / Primary - dc fluids when started on diet - renally dose all meds - avoid nephrotxins Will sign off, plz call if additional questions Result Diagram: 09/19/18 0440 09/19/18 0440 Results 24hrs Laboratory Tests Test 09/18/18 11:54 09/18/18 18:00 09/18/18 18:20 09/18/18 22:01 Blood Gas Blood arterial Specimen Source Arterial Blood 09/18/2018 12:00 Date Drawn :55 PM Arterial Blood 7.457 H pH (Temp corrected ) Arterial Blood 42.3 pCO2 (Temp correct) Arterial Blood 99.0 pO2 (Temp corrected ) Arterial Blood 29.2 H HCO3 Arterial Blood 4.9 H Base Excess Arterial Blood 97.2 Oxygen Saturati on Brian Test ACCEPTAB Arterial Blood Right Radial Gas Puncture Site Arterial 0.3 Blood Carboxyhe moglobin Arterial Blood 0.5 Methemoglobin Blood Gas A-a 137.6 H O2 Differential Oxyhemoglobin 96.4 Percent Blood Gas 37.0 Temperature Blood Gas VENT - CPAP Modality FiO2 40.0 Blood Gas Low 5.0 PEEP Setting Blood Gas 12 Pressure Support Blood Gas Sherif MOE Notified Whom Blood Gas 09/18/2018 12:14 Notified Time :03 PM Stool Occult NEGATIVE Blood White Blood 12.7 #H Count Red Blood Count 3.53 #L Hemoglobin 10.5 #L Hematocrit 32.5 #L Mean 92.1 Corpuscular Volume Mean 29.7 Corpuscular Hemoglobin Mean 32.3 Corpuscular Hemoglobin Conc ent Red Cell 15.1 H Distribution Width Platelet Count 208 # Mean Platelet 11.1 H Volume Immature 2.500 H Granulocytes % Neutrophils % 87.3 H Lymphocytes % 4.2 L Monocytes % 5.0 Eosinophils % 0.7 Basophils % 0.3 Nucleated Red 0.0 Blood Cells % Immature 0.320 H Granulocytes # Neutrophils # 11.1 H Lymphocytes # 0.5 L Monocytes # 0.6 Eosinophils # 0.1 Basophils # 0.0 Nucleated Red 0.0 Blood Cells # Sodium Level 143 Potassium Level 3.6 Chloride Level 106 Carbon Dioxide 31 Level Anion Gap 6 Blood Urea 19 Nitrogen Creatinine 0.78 Est Glomerular > 60 Filtrat Rate mL/min Glucose Level 145 Calcium Level 8.7 Vancomycin 7.4 L Level Trough Test 09/19/18 04:40 09/19/18 05:22 09/19/18 07:00 White Blood 13.9 H Count Red Blood Count 3.67 L Hemoglobin 11.1 L Hematocrit 33.3 L Mean 90.7 Corpuscular Volume Mean 30.2 Corpuscular Hemoglobin Mean 33.3 Corpuscular Hemoglobin Conc ent Red Cell 14.8 H Distribution Width Platelet Count 239 Mean Platelet 11.0 H Volume Immature 1.500 H Granulocytes % Neutrophils % Segmented 78 H Neutrophils % (Manual) Band 11 H Neutrophils % (Manual) Lymphocytes % Lymphocytes % 5 L (Manual) Monocytes % Monocytes % 4 (Manual) Eosinophils % Eosinophils % 1 (Manual) Basophils % Basophils % 1 (Manual) Nucleated Red 0.0 Blood Cells % Immature 0.210 H Granulocytes # Neutrophils # Neutrophils # 11.1 H (Manual) Band 1.5 H Neutrophils # Lymphocytes 0.6 L (Manual) Lymphocytes # Monocytes # Monocytes # 0.5 (Manual) Eosinophils # Basophils # Basophils # 0.1 H (Manual) Nucleated Red Blood Cells # Platelet NORMAL Estimate Polychromasia 1+ Anisocytosis 1+ Microcytosis 1+ Sodium Level 139 Potassium Level 3.7 Chloride Level 101 Carbon Dioxide 29 Level Anion Gap 9 Blood Urea 15 Nitrogen Creatinine 0.66 Est Glomerular > 60 Filtrat Rate mL/min Glucose Level 95 # Calcium Level 8.5 Phosphorus 2.7 Level Magnesium Level 1.8 Lab Scanned BLOOD TRANSFUSI Report ON Blood Gas Blood Specimen arterial Source Arterial Blood 09/19/2018 7:23 Date Drawn :13 AM Arterial Blood 7.489 H pH (Temp corrected ) Arterial Blood 38.2 pCO2 (Temp correct) Arterial Blood 89.6 pO2 (Temp corrected ) Arterial Blood 28.4 H HCO3 Arterial Blood 4.9 H Base Excess Arterial Blood 96.9 Oxygen Saturati on Brian Test ACCEPTAB Arterial Blood Right Radial Gas Puncture Site Arterial 0.1 Blood Carboxyhe moglobin Arterial Blood 0.4 Methemoglobin Blood Gas A-a 79.4 H O2 Differential Oxyhemoglobin 96.4 Percent Blood Gas 37.0 Temperature Blood Gas NASAL CANNULA Modality FiO2 30.0 Blood Gas TM Notified Whom Blood Gas 09/19/2018 7:49 Notified Time :45 AM Consultation Date/Type/Reason Admit Date/Time Sep 09, 2018 at 16:10 Initial Consult Date 09/10/18 Requesting Provider: OZZIE ALVAREZ MD 24 HR Interval Summary Free Text/Dictation S/P Extubation yesterday Hematuria cleared UOP>100 cc/hr Exam/Review of Systems Vital Signs Vitals Vital Signs Date Temp Pulse Resp B/P (MAP) Pulse Ox O2 O2 Flow FiO2 Time Delivery Rate 09/19/18 95 08:00 09/19/18 20 96 Nasal 3.0 07:57 Cannula 09/19/18 162/89 06:00 (113) 09/19/18 98.6 04:00 09/18/18 40 10:40 Intake and Output 09/18/18 09/18/18 09/19/18 1515:00 23:00 07:00 IntakeIntake Total 908 ml 1000 ml 900 ml OutputOutput Total 2500 ml 970 ml 1150 ml BalanceBalance -1592 ml 30 ml -250 ml Exam GENERAL: awake,alert oriented s/p extubation NECK: Supple. HEART: Regular rate and rhythm. LUNGS: Decreased breath sounds bilaterally, especially on the right. ABDOMEN: Soft, nontender, nondistended, positive normoactive bowel sounds. EXTREMITIES: No clubbing, cyanosis, or edema. NEUROLOGIC: follows commands Medications Medications Current Medications Acetaminophen (Tylenol Liquid) 650 mg Q6H PRN NGT PAIN LEVEL 1-3 OR FEVER Last administered on 09/12/18at 09:30; Admin Dose 650 MG; Start 09/09/18 at 16:30 Morphine Sulfate (morphine) 2 mg Q4H PRN IV PAIN LEVEL 7-10 Last administered on 09/13/18at 10:11; Admin Dose 2 MG; Start 09/09/18 at 16:30 Pantoprazole (Protonix Iv) 40 mg DAILY@06 IV Last administered on 09/19/18at 05:22; Admin Dose 40 MG; Start 09/10/18 at 06:00 Piperacillin Sod/ Tazobactam Sod 100 ml @ 200 mls/hr Q8 IVPB Last administered on 09/19/18at 05:22; Admin Dose 200 MLS/HR; Start 09/09/18 at 22:00 Potassium Chloride (Potassium Chloride Pwd/Soln) 20 meq PER PROTOCOL PRN PO POTASSIUM REPLACEMENT PROTOCOL Last administered on 09/19/18at 09:44; Admin Dose 20 MEQ; Start 09/10/18 at 09:00 Potassium Chloride (Potassium Chloride Pwd/Soln) 30 meq PER PROTOCOL PRN PO POTASSIUM REPLACEMENT PROTOCOL Last administered on 09/15/18at 15:09; Admin Dose 30 MEQ; Start 09/10/18 at 09:00 Potassium Chloride (Potassium Chloride Pwd/Soln) 40 meq PER PROTOCOL PRN PO PO TASSIUM REPLACEMENT PROTOCOL Last administered on 09/16/18at 23:38; Admin Dose 40 MEQ; Start 09/10/18 at 09:00 Miscellaneous Information 1 ea NOTE XX ; Start 09/12/18 at 04:30 Glucose (Glutose) 15 gm Q15M PRN PO DECREASED GLUCOSE; Start 09/12/18 at 04:30 Glucose (Glutose) 22.5 gm Q15M PRN PO DECREASED GLUCOSE; Start 09/12/18 at 04:30 Dextrose (D50w Syringe) 25 ml Q15M PRN IV DECREASED GLUCOSE; Start 09/12/18 at 04:30 Dextrose (D50w Syringe) 50 ml Q15M PRN IV DECREASED GLUCOSE; Start 09/12/18 at 04:30 Glucagon (Glucagen) 1 mg Q15M PRN IM DECREASED GLUCOSE; Start 09/12/18 at 04:30 Glucose (Glutose) 15 gm Q15M PRN BUCCAL DECREASED GLUCOSE; Start 09/12/18 at 04:30 Furosemide (Lasix) 20 mg DAILY@0600 IV Last administered on 09/19/18 05:22; Admin Dose 20 MG; Start 09/14/18 at 06:00 Aspirin (Aspirin) 81 mg DAILY NGT Last administered on 09/17/18at 09:34; Admin Dose 81 MG; Start 09/14/18 at 09:30; Status Hold Hydralazine HCl (Apresoline) 10 mg Q4H PRN IV SBP ABOVE 160 Last administered on 09/19/18at 01:04; Admin Dose 10 MG; Start 09/14/18 at 12:00 Hydralazine HCl (Apresoline) 10 mg Q4H PRN IV SBP >170 Last administered on 09/17/18at 04:15; Admin Dose 10 MG; Start 09/15/18 at 15:00 Budesonide (Pulmicort (Neb)) 0.5 mg BID RESP THERAPY HHN Last administered on 09/19/18 07:56; Admin Dose 0.5 MG; Start 09/16/18 at 20:00 Vancomycin HCl (Vanco Iv Per Pharmacy) VANCOMYCIN PER PHARMACY PER PROTOCOL XX ; Start 09/17/18 at 09:30 Hydralazine HCl (Apresoline) 25 mg Q6 PO Last administered on 09/19/18 05:22; Admin Dose 25 MG; Start 09/17/18 at 12:00 Isosorbide Dinitrate (Isordil) 20 mg TID NGT Last administered on 09/19/18 09:45; Admin Dose 20 MG; Start 09/17/18 at 10:00 Sodium Chloride 1,000 ml @ 50 mls/hr Q20H IV Last administered on 09/18/18 14:36; Admin Dose 50 MLS/HR; Start 09/17/18 at 10:30 Spironolactone (Aldactone) 25 mg DAILY NGT Last administered on 09/19/18 09 :44; Admin Dose 25 MG; Start 09/18/18 at 09:00 Albuterol/ Ipratropium (Duoneb) 3 ml Q6H RESP THERAPY HHN Last administered on 09/19/18 07:56; Admin Dose 3 ML; Start 09/18/18 at 20:00 Labetalol HCl (Labetalol) 10 mg Q4H PRN IV sbp>160 Last administered on 09/18/18at 16:03; Admin Dose 10 MG; Start 09/18/18 at 14:30 Haloperidol (Haldol) 5 mg Q8 PRN IM agitation; Start 09/18/18 at 16:00 Vancomycin HCl 250 ml @ 125 mls/hr Q12H IVPB Last administered on 09/18/18at 23:47; Admin Dose 125 MLS/HR; Start 09/18/18 at 23:00 Magnesium Sulfate 3 gm/Dextrose 106 ml @ 35.333 mls/ hr ONCE ONCE IVPB Last administered on 09/19/18at 09:47; Admin Dose 35.333 MLS/HR; Start 09/19/18 at 09:00; Stop 09/19/18 at 11:59 Potassium Chloride (Potassium Chloride Pwd/Soln) 20 meq ONCE ONCE PO ; Start 09/19/18 at 12:00; Stop 09/19/18 at 12:01 Carvedilol (Coreg) 12.5 mg BID NGT Last administered on 09/19/18at 09:44; Admin Dose 12.5 MG; Start 09/19/18 at 09:00 Lisinopril (Zestril) 20 mg BID NGT Last administered on 09/19/18at 09:45; Admin Dose 20 MG; Start 09/19/18 at 09:00 RICHARD GIRARD MD Sep 19, 2018 10:06
--- NOTE | 2018-09-19 10:15 | NUR ---
OT EVAL: Emily Elmore is a 63-year-old female who presented to the Emergency Room with a witnessed cardiac arrest on the street. She was in ventricular fibrillation, was defibrillated twice by EMS and treated with epinephrine 1 mg IV. She arrived to the Emergency Room in V-fib, was immediately intubated without any difficulty. PLOF: Pt reports living in a first floor apartment with a few steps to enter. Pt states she lives alone and was independent with all ADL's prior to hospitalization. Pt ambulated without any DME. CLOF: DANNY Love cleared pt for OT eval. Pt received supine in bed on 2ltr of O2 with stable vitals. Pt appeared lethargic however agreeable to tx, denying any pain. Pt AOx2 (person, place), and demonstrated BUE AROM WFL, MMT 3+/5. Pt required Mod A to perform Supine->sit at EOB. Pt stated 10/10 headache with movement and reported feeling fatigued. Pt tolerated sitting at EOB for a few min with Mod A before returning to supine. Pt unable to hold herself up due to impaired strength and balance. Pt completed h/g tasks seated in bed with CGA and verbal cueing. Pt left supine in bed with all needs met. Rn notified. Pt will benefit from skilled OT tx 1x daily for 3-5x week to increase strength, endurance, balance, safety awareness, and increased independence with self care. D/C to be determined based on progress.
[2018-09-19] MEDS: VANCOMYCIN 1 GM 250 ML IVPB SCH (11:20)
[2018-09-19] MEDS: ACETAMINOPHEN 650MG/20.3ML CUP NGT PRN (11:20)
[2018-09-19] MEDS ORDERED: POTASSIUM CHLORIDE 20 MEQ POWDER FOR ORAL SOLN PO ONE (12:00)
--- NOTE | 2018-09-19 13:29 | PN ---
Date/Time of Note Date/Time of Note DATE: 09/19/18 TIME: 13:27 Objective Vitals Vital Signs Date Temp Pulse Resp B/P (MAP) Pulse Ox O2 O2 Flow FiO2 Time Delivery Rate 09/19/18 72 12:00 09/19/18 20 96 Nasal 3.0 07:57 Cannula 09/19/18 162/89 06:00 (113) 09/19/18 98.6 04:00 09/18/18 40 10:40 Intake and Output 09/18/18 09/18/18 09/19/18 1414:59 22:59 06:59 IntakeIntake Total 936 ml 950 ml 1050 ml OutputOutput Total 2325 ml 1045 ml 1250 ml BalanceBalance -1389 ml -95 ml -200 ml Results Result Diagram: 09/19/180 09/19/18 0440 Medications Medications Current Medications Acetaminophen (Tylenol Liquid) 650 mg Q6H PRN NGT PAIN LEVEL 1-3 OR FEVER Last administered on 09/19/18at 11:20; Admin Dose 650 MG; Start 09/09/18 at 16:30 Morphine Sulfate (morphine) 2 mg Q4H PRN IV PAIN LEVEL 7-10 Last administered on 09/13/18at 10:11; Admin Dose 2 MG; Start 09/09/18 at 16:30 Pantoprazole (Protonix Iv) 40 mg DAILY@06 IV Last administered on 09/19/18at 05:22; Admin Dose 40 MG; Start 09/10/18 at 06:00 Piperacillin Sod/ Tazobactam Sod 100 ml @ 200 mls/hr Q8 IVPB Last administered on 09/19/18at 05:22; Admin Dose 200 MLS/HR; Start 09/09/18 at 22:00 Potassium Chloride (Potassium Chloride Pwd/Soln) 20 meq PER PROTOCOL PRN PO POTASSIUM REPLACEMENT PROTOCOL Last administered on 09/19/18at 09:44; Admin Dose 20 MEQ; Start 09/10/18 at 09:00 Potassium Chloride (Potassium Chloride Pwd/Soln) 30 meq PER PROTOCOL PRN PO POTASSIUM REPLACEMENT PROTOCOL Last administered on 09/15/18at 15:09; Admin Dose 30 MEQ; Start 09/10/18 at 09:00 Potassium Chloride (Potassium Chloride Pwd/Soln) 40 meq PER PROTOCOL PRN PO POTASSIUM REPLACEMENT PROTOCOL Last administered on 09/16/18at 23:38; Admin Dose 40 MEQ; Start 09/10/18 at 09:00 Miscellaneous Information 1 ea NOTE XX ; Start 09/12/18 at 04:30 Glucose (Glutose) 15 gm Q15M PRN PO DECREASED GLUCOSE; Start 09/12/18 at 04:30 Glucose (Glutose) 22.5 gm Q15M PRN PO DECREASED GLUCOSE; Start 09/12/18 at 04:30 Dextrose (D50w Syringe) 25 ml Q15M PRN IV DECREASED GLUCOSE; Start 09/12/18 at 04:30 Dextrose (D50w Syringe) 50 ml Q15M PRN IV DECREASED GLUCOSE; Start 09/12/18 at 04:30 Glucagon (Glucagen) 1 mg Q15M PRN IM DECREASED GLUCOSE; Start 09/12/18 at 04:30 Glucose (Glutose) 15 gm Q15M PRN BUCCAL DECREASED GLUCOSE; Start 09/12/18 at 04:30 Furosemide (Lasix) 20 mg DAILY@0600 IV Last administered on 09/19/18at 05:22; Admin Dose 20 MG; Start 09/14/18 at 06:00 Aspirin (Aspirin) 81 mg DAILY NGT Last administered on 09/17/18at 09:34; Admin Dose 81 MG; Start 09/14/18 at 09:30; Status Hold Hydralazine HCl (Apresoline) 10 mg Q4H PRN IV SBP ABOVE 160 Last administered on 09/19/18at 01:04; Admin Dose 10 MG; Start 09/14/18 at 12:00 Hydralazine HCl (Apresoline) 10 mg Q4H PRN IV SBP >170 Last administered on 09/17/18at 04:15; Admin Dose 10 MG; Start 09/15/18 at 15:00 Budesonide (Pulmicort (Neb)) 0.5 mg BID RESP THERAPY HHN Last administered on 09/19/18at 07:56; Admin Dose 0.5 MG; Start 09/16/18 at 20:00 Vancomycin HCl (Vanco Iv Per Pharmacy) VANCOMYCIN PER PHARMACY PER PROTOCOL XX ; Start 09/17/18 at 09:30 Hydralazine HCl (Apresoline) 25 mg Q6 PO Last administered on 09/19/18at 11:21; Admin Dose 25 MG; Start 09/17/18 at 12:00 Isosorbide Dinitrate (Isordil) 20 mg TID NGT Last administered on 09/19/18 09:45; Admin Dose 20 MG; Start 09/17/18 at 10:00 Sodium Chloride 1,000 ml @ 50 mls/hr Q20H IV Last administered on 09/18/18 14:36; Admin Dose 50 MLS/HR; Start 09/17/18 at 10:30 Spironolactone (Aldactone) 25 mg DAILY NGT Last administered on 09/19/18 09:44; Admin Dose 25 MG; Start 09/18/18 at 09:00 Albuterol/ Ipratropium (Duoneb) 3 ml Q6H RESP THERAPY HHN Last administered on 09/19/18 07:56; Admin Dose 3 ML; Start 09/18/18 at 20:00 Labetalol HCl (Labetalol) 10 mg Q4H PRN IV sbp>160 Last administered on 09/18/18 16:03; Admin Dose 10 MG; Start 09/18/18 at 14:30 Haloperidol (Haldol) 5 mg Q8 PRN IM agitation; Start 09/18/18 at 16:00 Vancomycin HCl 250 ml @ 125 mls/hr Q12H IVPB Last administered on 09/19/18 11:20; Admin Dose 125 MLS/HR; Start 09/18/18 at 23:00 Carvedilol (Coreg) 12.5 mg BID NGT Last administered on 09/19/18 09:44; Admin Dose 12.5 MG; Start 09/19/18 at 09:00 Lisinopril (Zestril) 20 mg BID NGT Last administered on 09/19/18 09:45; Admin Dose 20 MG; Start 09/19/18 at 09:00 VTE Prophylaxis Risk score (from Nsg)>0 risk: 5 SCD applied (from Nsg): Yes Lines/Catheters IV Catheter Type: Dave in Place: No Assessment/Plan Hospital Course Subjective Patient doing well, RR slightly up, but patient relatively comfortable Objective Physical exam General: Patient is laying in bed, responding normally Mentation: Patient is alert and oriented Head: Normocephalic atraumatic Eyes: EOMI, pupils reactive to light Neck: Supple, nontender, midline Respiratory: Clear to auscultation bilaterally Cardiovascular: regular rate, no obvious murmurs Gastrointestinal: non-tender to palpation, bowel sounds heard. Neurological: Moves all extremities spontaneously Skin: No new skin lesions Assessment/Plan ?mild encephalopathy -alert and oriented, but still having some delusional thoughts -CT head pending Acute hypoxic respiratory failure on mechanical ventilation - Pulm on board and appreciate consultation - extubated, monitor closely Vfib Cardiac arrest with ROSC s/p hypothermia protocol - Cardiology on board and appreciate consultation. Will continue current treatment with goal K >4 and Mg >2 - After being found down in Vfib arrest, patient underwent ACLS with 4 rounds o f epi, Amiodarone x1, bicarb with ROSC. Patient noted with hypokalemia with K 2.1 at time of admission - ECHO reviewed and patient with poor EF 20%. - cardiac cath done 09/17/18, no significant stenosis, per cardiology will most likely need BIV ICD before discharge Septic shock secondary to aspiration pneumonia- improving - Off pressor support and will wean from vent as tolerated - Continue antibiotics and neb treatments - CXR results show slight progression of right pneumonia - Nebs PRN - Lactic acid normalized - ID consulted Transaminitis- improving - most likely secondary to hypoperfusion - trending down HTN Hypokalemia- improving - will continue replacing with goal >4 JULISSA- improving - Nephrology consultation appreciated. continue on lasix and off IVF Disposition - Continue monitoring in ICU. -CT brain pending >35 minutes of critical care time spent with patient and family at bedside PIYUSH SYED Sep 19, 2018 13:29
--- NOTE | 2018-09-19 13:41 | CONS ---
Date/Time of Note Date/Time of Note DATE: 09/19/18 TIME: 13:39 Assessment/Plan Assessment/Plan Hospital Course Patient was extubated she is awake in no distress family at bedside. Per reports she gets episodes of confusion. Vital signs stable no fevers. WBC 13.9 platelets 239 bands 11 neutrophils 78 BUN 15 creatinine 0.66 Sputum culture sent yesterday growing gram-negative rods Chest x-ray this morning revealed pulmonary edema Indwelling's: NG tube right IJ triple-lumen catheter, Dave Antimicrobials: Vancomycin, Zosyn Physical examination: This is well-developed well-nourished elderly - [place] woman who is intubated sedated in no distress. Head atraumatic normocephalic sclera nonicteric. Neck is supple. Chest rise symmetrical breath sounds clear, diminished bases. Heart: S1-S2. Abdomen soft, bowel sounds present. Extremities without cyanosis. Assessment: 1. Sepsis, resolving 2. S/p Pneumonia 3. Status post cardiopulmonary arrest 4. Hypertension 5. S/p resp failure==> extubated 6. Leukocytosis Plan: Stable post extubation, plan for CT brain, DC antibiotics, DC central li brian, continue aspiration precautions. Discussed with family at bedside, discussed with RN Result Diagram: 09/19/18 0440 09/19/18 0440 Results 24hrs Laboratory Tests Test 09/18/18 18:00 09/18/18 18:20 09/18/18 22:01 09/19/18 04:40 Stool Occult NEGATIVE Blood White Blood 12.7 #H 13.9 H Count Red Blood Count 3.53 #L 3.67 L Hemoglobin 10.5 #L 11.1 L Hematocrit 32.5 #L 33.3 L Mean Corpuscular 92.1 90.7 Volume Mean Corpuscular 29.7 30.2 Hemoglobin Mean Corpuscular 32.3 33.3 Hemoglobin Sophy nt Red Cell 15.1 H 14.8 H Distribution Width Platelet Count 208 # 239 Mean Platelet 11.1 H 11.0 H Volume Immature 2.500 H 1.500 H Granulocytes % Neutrophils % 87.3 H Lymphocytes % 4.2 L Monocytes % 5.0 Eosinophils % 0.7 Basophils % 0.3 Nucleated Red 0.0 0.0 Blood Cells % Immature 0.320 H 0.210 H Granulocytes # Neutrophils # 11.1 H Lymphocytes # 0.5 L Monocytes # 0.6 Eosinophils # 0.1 Basophils # 0.0 Nucleated Red 0.0 Blood Cells # Sodium Level 143 139 Potassium Level 3.6 3.7 Chloride Level 106 101 Carbon Dioxide 31 29 Level Anion Gap 6 9 Blood Urea 19 15 Nitrogen Creatinine 0.78 0.66 Est Glomerular > 60 > 60 Filtrat Rate mL/min Glucose Level 145 95 # Calcium Level 8.7 8.5 Vancomycin Level 7.4 L Trough Segmented 78 H Neutrophils % (Manual) Band Neutrophils 11 H % (Manual) Lymphocytes % 5 L (Manual) Monocytes % 4 (Manual) Eosinophils % 1 (Manual) Basophils % 1 (Manual) Neutrophils # 11.1 H (Manual) Band Neutrophils 1.5 H # Lymphocytes 0.6 L (Manual) Monocytes # 0.5 (Manual) Basophils # 0.1 H (Manual) Platelet NORMAL Estimate Polychromasia 1+ Anisocytosis 1+ Microcytosis 1+ Phosphorus Level 2.7 Magnesium Level 1.8 Test 09/19/18 05:22 09/19/18 07:00 Lab Scanned BLOOD TRANSFUSI Report ON Blood Gas Blood arterial Specimen Source Arterial Blood 09/19/2018 7:23: Date Drawn 13 AM Arterial Blood 7.489 H pH (Temp corrected) Arterial Blood 38.2 pCO2 (Temp correct) Arterial Blood 89.6 pO2 (Temp corrected) Arterial Blood 28.4 H HCO3 Arterial Blood 4.9 H Base Excess Arterial Blood 96.9 Oxygen Saturatio n Brian Test ACCEPTAB Arterial Blood Right Radial Gas Puncture Site Arterial 0.1 Blood Carboxyhem oglobin Arterial Blood 0.4 Methemoglobin Blood Gas A-a O2 79.4 H Differential Oxyhemoglobin 96.4 Percent Blood Gas 37.0 Temperature Blood Gas NASAL CANNULA Modality FiO2 30.0 Blood Gas TM Notified Whom Blood Gas 09/19/2018 7:49: Notified Time 45 AM Consultation Date/Type/Reason Admit Date/Time Sep 09, 2018 at 16:10 Initial Consult Date 09/10/18 Type of Consult id Requesting Provider: OZZIE ALVAREZ MD Exam/Review of Systems Vital Signs Vitals Vital Signs Date Temp Pulse Resp B/P (MAP) Pulse Ox O2 O2 Flow FiO2 Time Delivery Rate 09/19/18 72 12:00 09/19/18 20 96 Nasal 3.0 07:57 Cannula 09/19/18 162/89 06:00 (113) 09/19/18 98.6 04:00 09/18/18 40 10:40 Intake and Output 09/18/18 09/18/18 09/19/18 1515:00 23:00 07:00 IntakeIntake Total 908 ml 1000 ml 900 ml OutputOutput Total 2500 ml 970 ml 1150 ml BalanceBalance -1592 ml 30 ml -250 ml Medications Medications Current Medications Acetaminophen (Tylenol Liquid) 650 mg Q6H PRN NGT PAIN LEVEL 1-3 OR FEVER Last administered on 09/19/18at 11:20; Admin Dose 650 MG; Start 09/09/18 at 16:30 Morphine Sulfate (morphine) 2 mg Q4H PRN IV PAIN LEVEL 7-10 Last administered on 09/13/18at 10:11; Admin Dose 2 MG; Start 09/09/18 at 16:30 Pantoprazole (Protonix Iv) 40 mg DAILY@06 IV Last administered on 09/19/18at 05:22; Admin Dose 40 MG; Start 09/10/18 at 06:00 Piperacillin Sod/ Tazobactam Sod 100 ml @ 200 mls/hr Q8 IVPB Last administered on 09/19/18at 05:22; Admin Dose 200 MLS/HR; Start 09/09/18 at 22:00 Potassium Chloride (Potassium Chloride Pwd/Soln) 20 meq PER PROTOCOL PRN PO POTASSIUM REPLACEMENT PROTOCOL Last administered on 09/19/18at 09:44; Admin Dose 20 MEQ; Start 09/10/18 at 09:00 Potassium Chloride (Potassium Chloride Pwd/Soln) 30 meq PER PROTOCOL PRN PO POTASSIUM REPLACEMENT PROTOCOL Last administered on 09/15/18at 15:09; Admin Dose 30 MEQ; Start 09/10/18 at 09:00 Potassium Chloride (Potassium Chloride Pwd/Soln) 40 meq PER PROTOCOL PRN PO POTASSIUM REPLACEMENT PROTOCOL Last administered on 09/16/18at 23:38; Admin Dose 40 MEQ; Start 09/10/18 at 09:00 Miscellaneous Information 1 ea NOTE XX ; Start 09/12/18 at 04:30 Glucose (Glutose) 15 gm Q15M PRN PO DECREASED GLUCOSE; Start 09/12/18 at 04:30 Glucose (Glutose) 22.5 gm Q15M PRN PO DECREASED GLUCOSE; Start 09/12/18 at 04:30 Dextrose (D50w Syringe) 25 ml Q15M PRN IV DECREASED GLUCOSE; Start 09/12/18 at 04:30 Dextrose (D50w Syringe) 50 ml Q15M PRN IV DECREASED GLUCOSE; Start 09/12/18 at 04:30 Glucagon (Glucagen) 1 mg Q15M PRN IM DECREASED GLUCOSE; Start 09/12/18 at 04:30 Glucose (Glutose) 15 gm Q15M PRN BUCCAL DECREASED GLUCOSE; Start 09/12/18 at 04:30 Furosemide (Lasix) 20 mg DAILY@0600 IV Last administered on 09/19/18at 05:22; Admin Dose 20 MG; Start 09/14/18 at 06:00 Aspirin (Aspirin) 81 mg DAILY NGT Last administered on 09/17/18at 09:34; Admin Dose 81 MG; Start 09/14/18 at 09:30; Status Hold Hydralazine HCl (Apresoline) 10 mg Q4H PRN IV SBP ABOVE 160 Last administered on 09/19/18at 01:04; Admin Dose 10 MG; Start 09/14/18 at 12:00 Hydralazine HCl (Apresoline) 10 mg Q4H PRN IV SBP >170 Last administered on 09/17/18at 04:15; Admin Dose 10 MG; Start 09/15/18 at 15:00 Budesonide (Pulmicort (Neb)) 0.5 mg BID RESP THERAPY HHN Last administered on 09/19/18at 07:56; Admin Dose 0.5 MG; Start 09/16/18 at 20:00 Vancomycin HCl (Vanco Iv Per Pharmacy) VANCOMYCIN PER PHARMACY PER PROTOCOL XX ; Start 09/17/18 at 09:30 Hydralazine HCl (Apresoline) 25 mg Q6 PO Last administered on 09/19/18at 11:21; Admin Dose 25 MG; Start 09/17/18 at 12:00 Isosorbide Dinitrate (Isordil) 20 mg TID NGT Last administered on 09/19/18at 09:45; Admin Dose 20 MG; Start 09/17/18 at 10:00 Spironolactone (Aldactone) 25 mg DAILY NGT Last administered on 09/19/18at 09:44; Admin Dose 25 MG; Start 09/18/18 at 09:00 Albuterol/ Ipratropium (Duoneb) 3 ml Q6H RESP THERAPY HHN Last administered on 09/19/18at 07:56; Admin Dose 3 ML; Start 09/18/18 at 20:00 Labetalol HCl (Labetalol) 10 mg Q4H PRN IV sbp>160 Last administered on 09/18/18 16:03; Admin Dose 10 MG; Start 09/18/18 at 14:30 Haloperidol (Haldol) 5 mg Q8 PRN IM agitation; Start 09/18/18 at 16:00 Vancomycin HCl 250 ml @ 125 mls/hr Q12H IVPB Last administered on 09/19/18at 11:20; Admin Dose 125 MLS/HR; Start 09/18/18 at 23:00 Carvedilol (Coreg) 12.5 mg BID NGT Last administered on 09/19/18at 09:44; Admin Dose 12.5 MG; Start 09/19/18 at 09:00 Lisinopril (Zestril) 20 mg BID NGT Last administered on 09/19/18at 09:45; Admin Dose 20 MG; Start 09/19/18 at 09:00 MICHELLE RECINOS NP Sep 19, 2018 13:41
--- NOTE | 2018-09-19 14:20 | NUR ---
PT NOTE Received MD orders for PT evaluation. Charts reviewed. Attempted to see pt in early pm, pt out of room for CAT scan. Reattempted again in pm, RN suggested holding PT evaluation today due to pt fatigue from multiple procedures and 06/12 headache. Will follow up tomorrow in am
--- NOTE | 2018-09-19 14:55 | NUR ---
Bedside Clinical Swallow Evaluation Completed: Reason for evaluation; determine swallow function s/p x8 days intubated Brief Hx: Ms. Diaz is a 63 y/o F who presented to the ED with Vfib Cardiac arrest. Pt then underwent ACLS with 4 rounds of epi, Amiodarone x1, bicarb with ROSC, most likely secondary to severe hypokalemia. Pt then underwent hypothermia protocol on 09/10/2018. Then was admitted to ICU and also determined to have the following: Septic shock secondary to pneumonia, Acute hypoxic respiratory failure on mechanical ventilation (intubated on 09/10/2018), HTN and Hypokalemia. Intubated on 09/10/2018: Extubated on 09/18/2018 Chest x-ray completed on 09/19/2018: Interval removal of endotracheal tube. Persistent findings suggestive of pulmonary edema including small bilateral pleural effusions. Stable mild cardiomegaly. Aortic atherosclerotic calcification. Brain CT completed on 09/19/2018: The density of the brain is unremarkable. Osei-white junctions are preserved. Atherosclerotic calcifications are noted at the proximal intracranial arteries. There is a small focal calcification at the right sellar - suprasellar region adjacent to the supraclinoid right internal carotid artery, raising the possibility of an aneurysm. Calvarium and skull base are intact. Severe right sphenoid sinus mucosal thickening is seen. 1. No evidence of acute intracranial pathology. 2. Small calcification at the right sellar - suprasellar region, raising possibility of supraclinoid right ICA aneurysm. Follow-up with CTA, or MRA of the brain is recommended. Vitals: Temp: 98.6; RR: 30-35; SPO2: 98% on 3 liters/min on NC Labs: WBC: 13.9H (up-trending); Plt C: 239; NA: 139; K: 3.7; Chloride level: 101; Co2: 29; BUN: 15; CR level: 0.66; AB.489H PLOF: regular/thin liquids Current nutrition; NG tube-50ml/hr Subjective assessment of cognition specific to swallow safety: Awake, alert and oriented to self, place and able to follow simple commands with slow initiation and response to simple questions. PT could not recall the year or current situation. Pt also demonstrated difficulty with recalling family members names (daughter and son-in law) present during the assessment. Throughout the assessment, pt continued to state that her head felt "heavy." RN was alerted and made aware of the pt's headache. Oral mechanism examination completed: Face is symmetrical, lips, tongue and soft palate were symmetrical with 3+/5 tongue strength, dentition noted in oral cavity. Pts overall vocal quality was clear but soft in vocal volume, with TVF approximation appreciated. P.O trials consisting of the following: ice chips x 2, thin liquids by teaspoon x 3, thin liquids by cup x 8, jello x 4 and puree x 2. Pt required assistance due to the reduced upper extremity movement and weakness noted in the pts left arm. Oral phase of swallow: Reduced oral motor strength/coordination. Prolonged mastication with the puree and poor cohesive formation with the bolus. Better cohesive formation and manipulation with the Jello. Delayed oral anterior to posterior transit (Jello better timing compared to puree). No anterior oral leakage or residue in the oral cavity after the swallow. Reduced oral control with larger volume sip of thin liquid by cup and suspected premature loss into the hypopharynx before initiation of the swallow. Better oral control was noted with small sips of thin liquids by cup at a slow rate. Pharyngeal phase of swallow: Mildly delayed trigger of swallow. Reduced hyolaryngeal excursion and elevation s/p intubation and generalized weakness. Suspected other pharyngeal deficits include: posterior pharyngeal constriction and pharyngeal stasis. No overt s/s of aspiration or penetration with thin liquids by cup (single/small sips), jello or puree. Reduced coordination of breath with swallow safety noted. Vocal quality was clear across p.o trials. Impression; mild oropharyngeal dysphagia associated with reduced oropharyngeal strength/coordination, reduced awareness required for swallow safety and reduced coordination of breath with swallow safety. Pt is safe to initiate a p.o diet but with strict use of swallowing precautions inorder to prevent aspiration. Recommendation: 1. Initiate dysphagia therapy 3-5x per week for 2 weeks 2. Initiate Clear liquid diet: thin liquids by cup. No straws at this time. Please hold diet if pt is altered/lethargic 3. Administer crushed medication, with puree and followed by liquid wash 4. ongoing swallow assessment pending pts overall cognitive status. MRI pending due to suspected R ICA Aneurysm 4. Follow aspiration precautions (HOB upright ,single bites/sips at a slow rate and remain upright for one hour after meals).
[2018-09-19] MEDS: HYDROCODONE/APAP (5/325) TAB PO PRN ×2 (15:24→23:17)
--- NOTE | 2018-09-19 16:50 | NUR ---
RECEIVED AN ORDER TO ASSIST IN OIBTAINING APPROVAL FO AN ICD PRIOR TO DISCHARGE. SPOKE TO FRANCISCO Ortiz X 1973 FINANCIAL AND AWAITING A RESPONSE. [facility] AND FRANCISCO NEEDED TO [facility].
--- NOTE | 2018-09-19 19:41 | NUR ---
Patient had a productive day. Weaned NC from 4L to 1L, tolerating well at this time. HR and BP both improved with increased cardiac medication. Electrolytes replaced this morning, ectopy improved greatly. Began with a PO diet today (Clear liquids), pt. requires encouragement and prompting to eat and drink. OT evaluated patient and will continue to work with her, PT deferred d/t timing of evaluation attempt. PT did have c/o of a 10 out of 10 CABRERA, [place] ordered and administered, patient stated it worked "great." Family continues to be present at bedside. CT performed d/t intermittent confusion, forgetfulness and overall affect. CTA ordered per Radiology recommendations, still waiting for call from CT. R IJ CVL remains in place pending results of CTA.
[2018-09-20] VITALS (15 sets, daily range): BP systolic 143–174; BP diastolic 67–89; PULSE 71–100; RESP 18–29
[2018-09-20] MEDS: hydrALAzine 20 MG INJ IV PRN ×2 (01:07→15:38)
--- NOTE | 2018-09-20 02:08 | NUR ---
0200- Report given to MANAGER COMMUNICATION all questions answered. Pt transferred with SALES AND SERVICE OFFICER RN, no complications. Daughter Ladan at bedside, all belongings gathered including DVD player and DVD, given to daughter, pt can not find Bible, checked with second RN, no Bible at bedside. PIV started on left hand, no complications.
[2018-09-20] MEDS: ALBUTEROL/IPRATROPIUM (NEB) 3 ML AMP HHN SCH ×4 (02:46→19:44)
[2018-09-20] MEDS: PANTOPRAZOLE 40 MG INJ IV SCH (05:46)
[2018-09-20] MEDS: FUROSEMIDE 20 MG INJ IV SCH (05:47)
--- NOTE | 2018-09-20 06:53 | NUR ---
End of shift notes: Transferred in from ICU by bed accompanied by ICU CN and the ,transporter by bed. Pt is A/O x2; SR on the monitor. Family on bedside. Denies any pain. Keep safe and free from injury Needs attended; Endorsed to day shift. Addendum: 09/20/18 at 0728 by MOSES ZAFAR RN For CTA Cerebral Angiogram today; JAMEEL TLC to be remove after CTA.
[2018-09-20] MEDS: BUDESONIDE (NEB) 0.5MG/2ML AMP HHN SCH ×2 (07:56→19:44)
[2018-09-20] MEDS: ACETAMINOPHEN 650MG/20.3ML CUP NGT PRN (08:39)
[2018-09-20] MEDS: SPIRONOLACTONE 25 MG TAB NGT SCH (08:40)
[2018-09-20] MEDS: ISOSORBIDE DINITRATE 20 MG TAB NGT SCH ×3 (08:40→20:17)
[2018-09-20] MEDS: LISINOPRIL 20 MG TAB NGT SCH ×2 (08:40→20:17)
--- NOTE | 2018-09-20 08:55 | NUR ---
OT NOTE S: RN cleared pt for skilled OT tx. O: Pt received supine in bed agreeable to tx. Pt reported 8/10 headache. Pt donned sock and performed oral hygiene seated in bed with supervision. Pt tends to get easily distracted and requires vc for redirection. Pt performed supine->sit sit with CGA however required Min A to sit at EOB. Pt stated she felt her head was too heavy to keep upright. Pt attempted STS with Max A using FWW For 30 seconds. Pt returned to bed due to lethargy and fatigue. Pt's Vitals read 179/93- RN notified. A: Pt demonstrates poor balance and head control due to pain. Pt is easily distracted and requires cueing for self care tasks. P: Cont POC.
--- NOTE | 2018-09-20 10:00 | NUR ---
PT [facility] Patient: Emily Elmore : 1955 Age/Sex: 63/F Unit#: [id number] Room/Bed: 510/A User: Jasvir Ardon PT Date: 09/20/18 08:50 Type: PT Technical Record Therapy day number 1 Evaluation Start Time 08:50 Evaluation Total Time 0 min Subjective Denies pain Pain Scale NUMERIC Pain Intensity 0 (0-10) Patient Stated Goal for Pain Relief 0 (0-10) Pain Level Comment denies pain Pre Treatment Vital Signs Stable Yes - 160/47, 106bpm 97% on 2LO2 Exercise Assessment Label Bilat Lower Extremity Exercise Type Active ROM Additional Exercise Comments semi-supine APs, heel slides, SLR; frequent VC to perform correctly Supine to Sit Moderate Assist Transfer Sit to Stand Ability Minimum Assist Bed Mobility Sit to Supine Moderate Assist Sitting Tolerance 15 min Additional Mobility Comments sitting balance poor plus, pt unable to maintain static position, modA safe Patient uses wheelchair Not Applicable Additional Gait Comments TBA Static Sitting Balance Fair minus Dynamic Sitting Balance Poor plus Standing Static Balance Poor plus Additional Balance Assessments Comments FWW Safety Judgement Poor Activity Tolerance Fair Equipment Present A pump Dave Catheter Additional Equipment Present 2LO2 via NC Post Treatment Pain Intensity 0 0-10 Variance Documentation SEE PT EVAL PT Technical Record Comment PT EVAL Pt is a 63 yo F with PMH of HTN who presented to ED with full cardiac arrest after pt found on sidewalk in Vfib arrest due to hypokalemia. Pt subsequently intubated on 09/10/18. Pt extubated on 09/18/18. CXR showed persistent findings of pulmonary edema including small B effusions. Brain CT (-) for acute intracranial pathology, though showed "Small calcification at the right sellar - suprasellar region, raising possibility of supraclinoid right ICA aneurysm." Pt received in 5W, telemetry., Precautions: Fall precautions PLOF: Pt lives alone in 2nd floor apartment with no elevator access. Pt was I with ADLs/mobility without AD and does not own any DME. CLOF: DANNY Artis cleared pt for PT evaluation. Pt received semi-supine in bed, on 2LO2 via NC, agreeable to PT evaluation. Noted pt with instances of forgetfulness throughout. B UE/LE strength/ROM assessment WFL though mild weakness noted throughout. Bed mobility, transfer assessment as above. Noted pt with poor+ sitting balance, unable to maintain static position (leaning laterally, posteriorly, anteriorly) requiring frequent verbal cues to stay still. Noted in standing, similar balance deficits, pt unable to stabilize trunk, impulsive with movements. Pt returned to bed, all needs in reach, no signs of distress, bed alarm activated, family at bedside. RN notified of pt's status. Recommendation: Pt demonstrates impulsivity vs trunk weakness, unable to maintain static sitting or standing without modA and verbal cues to maintain a static position. Pt with periods of forgetfulness, easily distracted, frequent verbal cues to return to task. Gait TBA, recommend 2PA. Pt will benefit from additional skilled PT services during hospital stay to improve balance and overall mobility. D/c recommendation pending pt progress, at this time recommend post-acute setting as pt lives alone and has flight of stairs to enter home. P: Continue c PT POC (daily x 5)
[2018-09-20] MEDS ORDERED: POTASSIUM CHLORIDE 20 MEQ POWDER FOR ORAL SOLN PO ONE (12:00)
--- NOTE | 2018-09-20 12:00 | NUR ---
RN NOTES: Pt transported to CT.
--- NOTE | 2018-09-20 12:05 | DS ---
Date/Time of Note Date/Time of Note DATE: 09/20/18 TIME: 12:05 Discharge Summary Admission/Discharge Info Admit Date/Time Sep 09, 2018 at 16:10 Discharge Date/Time Patient Condition: Stable Hospital Course Patient is an female with a past medical history that is significant for hypertension who presented to [facility] after being found down by bystanders and paramedics and V. fib cardiac arrest. Patient underwent hypothermia protocol and had a lengthy stay in the ICU. After multiple days, patient was eventually successfully extubated with mentation near baseline. Patient continues to do well on maximal medical therapy per cardiology however at this time cardiology states that due to patient's V. fib cardiac arrest with an EF of 20%, patient will need a biventricular ICD before discharge. Patient also during this time had septic shock secondary to aspiration pneumonia and is improving significantly. Patient is now off all antibiotics. Of note patient did receive a CT of the brain after day 1 of extubation as she was exhibiting some delusional behavior which has since resolving significantly however it did show evidence of possible aneurysm and a CT angiogram of the head is currently ordered to evaluate for possible aneurysm. If this is able to be done before transfer to her [facility] will include imaging results. Transfer diagnosis V. fib cardiac arrest with return of spontaneous circulation status post hypothermia protocol Acute congestive heart failure, EF of 20%, new finding. Mild encephalopathy, likely secondary to effects of long-term intubation, resolving Acute hypoxic respiratory failure, resolving Septic shock secondary to aspiration pneumonia, resolving Transaminitis, resolving Hypertension Acute kidney injury, resolved Questionable aneurysm seen on CT of the head. Home Meds Reported Medications Hydrochlorothiazide* (Hydrochlorothiazide*) 25 Mg Tab, 25 MG PO DAILY, #30 TAB 09/09/18 Simvastatin (Simvastatin) 20 Mg Tablet, 20 MG PO DAILY 09/09/18 Lisinopril* (Lisinopril*) 40 Mg Tablet, 40 MG PO DAILY 09/09/18 Primary Care Provider Care Physician No Primary Time spent on discharge: > 30 minutes Pending Labs Laboratory Tests Test 09/20/18 06:02 White Blood Count 11.1 10^3/ul (4.8-10.8) Red Blood Count 3.87 10^6/ul (4.20-5.40) Hemoglobin 11.6 g/dl (12.0-16.0) Hematocrit 34.8 % (37.0-47.0) Mean Corpuscular Volume 89.9 fl (82.0-101.0) Mean Corpuscular Hemoglobin 30.0 pg (29.0-33.0) Mean Corpuscular Hemoglobin Concent 33.3 g/dl (32.0-37.0) Red Cell Distribution Width 14.4 % (11.5-14.5) Platelet Count 324 10^3/UL (140-415) Mean Platelet Volume 10.5 fl (7.4-10.4) Immature Granulocytes % 1.300 % (0.001-0.429) Neutrophils % 83.4 % (39.0-77.0) Lymphocytes % 6.2 % (15.0-51.0) Monocytes % 7.7 % (0.0-11.0) Eosinophils % 1.0 % (0.0-7.0) Basophils % 0.4 % (0.0-2.0) Nucleated Red Blood Cells % 0.0 /100WBC (0.0-0.0) Immature Granulocytes # 0.140 10^3/ul (0.0-0.031) Neutrophils # 9.2 10^3/ul (1.6-7.5) Lymphocytes # 0.7 10^3/ul (0.8-2.9) Monocytes # 0.9 10^3/ul (0.3-0.9) Eosinophils # 0.1 10^3/ul (0.0-0.5) Basophils # 0.0 10^3/ul (0.0-0.1) Nucleated Red Blood Cells # 0.0 10^3/ul (0.0-0.0) Sodium Level 140 mmol/L (135-144) Potassium Level 3.3 mmol/L (3.5-5.1) Chloride Level 103 mmol/L (97-110) Carbon Dioxide Level 29 mmol/L (21-31) Anion Gap 8 (5-13) Blood Urea Nitrogen 14 mg/dl (7-20) Creatinine 0.77 mg/dl (0.44-1.00) Est Glomerular Filtrat Rate mL/min > 60 mL/min (>60) Glucose Level 97 mg/dl (70-220) Calcium Level 8.7 mg/dl (8.4-10.2) Magnesium Level 2.2 mg/dl (1.7-2.5) Total Bilirubin 0.5 mg/dl (0.2-1.3) Direct Bilirubin 0.00 mg/dl (0.00-0.20) Indirect Bilirubin 0.5 mg/dl (0-1.1) Aspartate Amino Transf (AST/SGOT) 49 IU/L (15-46) Alanine Aminotransferase (ALT/SGPT) 85 IU/L (13-69) Alkaline Phosphatase 150 IU/L (42-121) Total Protein 6.8 g/dl (6.1-8.1) Albumin 3.4 g/dl (3.3-4.9) Globulin 3.40 g/dl (1.3-3.2) Albumin/Globulin Ratio 1.00 PIYUSH SYED Sep 20, 2018 12:05
[2018-09-20] MEDS ORDERED: IOHEXOL 100 ML ONE (12:07)
[2018-09-20] MEDS ORDERED: SOD CHLORIDE 0.9% 100 ML ONE (12:07)
--- NOTE | 2018-09-20 12:20 | CONS ---
Date/Time of Note Date/Time of Note DATE: 09/20/18 TIME: 12:19 Consult Date/Type/Reason Admit Date/Time Sep 09, 2018 at 16:10 Initial Consult Date 09/10/18 Type of Consultation: Pulm Requesting Provider: OZZIE ALVAREZ MD Subjective Improving, less short of breath, more alert Objective Vital Signs Date Temp Pulse Resp B/P (MAP) Pulse Ox O2 O2 Flow FiO2 Time Delivery Rate 09/20/18 89 12:15 09/20/18 98.0 20 143/67 98 11:41 (92) 09/20/18 2.0 08:30 09/20/18 Nasal 07:58 Cannula 09/18/18 40 10:40 Intake and Output 09/19/18 09/19/18 09/20/18 1515:00 23:00 07:00 IntakeIntake Total 930 ml 420 ml 440 ml OutputOutput Total 1425 ml 650 ml 1000 ml BalanceBalance -495 ml -230 ml -560 ml Exam GENERAL: Elderly appearing lady on mechanical ventilation orally intubated. VITAL SIGNS: per chart NECK: Supple. No JVD or lymphadenopathy. CARDIAC EXAM: S1, S2. No added sounds or murmurs. CHEST: diminished air entry bilaterally ABDOMEN: Soft, nontender. No guarding or rebound. EXTREMITIES: No cyanosis, clubbing edema +1, NEUROLOGIC: Generalized weakness. Results/Medications Result Diagram: 09/20/18 0602 09/20/18 0602 Results 24 hrs Laboratory Tests Test 09/20/18 06:02 White Blood Count 11.1 #H Red Blood Count 3.87 L Hemoglobin 11.6 L Hematocrit 34.8 L Mean Corpuscular Volume 89.9 Mean Corpuscular Hemoglobin 30.0 Mean Corpuscular Hemoglobin Concent 33.3 Red Cell Distribution Width 14.4 Platelet Count 324 # Mean Platelet Volume 10.5 H Immature Granulocytes % 1.300 H Neutrophils % 83.4 H Lymphocytes % 6.2 L Monocytes % 7.7 Eosinophils % 1.0 Basophils % 0.4 Nucleated Red Blood Cells % 0.0 Immature Granulocytes # 0.140 H Neutrophils # 9.2 H Lymphocytes # 0.7 L Monocytes # 0.9 Eosinophils # 0.1 Basophils # 0.0 Nucleated Red Blood Cells # 0.0 Sodium Level 140 Potassium Level 3.3 L Chloride Level 103 Carbon Dioxide Level 29 Anion Gap 8 Blood Urea Nitrogen 14 Creatinine 0.77 Est Glomerular Filtrat Rate mL/min > 60 Glucose Level 97 Calcium Level 8.7 Magnesium Level 2.2 Total Bilirubin 0.5 Direct Bilirubin 0.00 Indirect Bilirubin 0.5 Aspartate Amino Transf (AST/SGOT) 49 H Alanine Aminotransferase (ALT/SGPT) 85 H Alkaline Phosphatase 150 H Total Protein 6.8 Albumin 3.4 Globulin 3.40 H Albumin/Globulin Ratio 1.00 Medications Current Medications Acetaminophen (Tylenol Liquid) 650 mg Q6H PRN NGT PAIN LEVEL 1-3 OR FEVER Last administered on 09/20/18at 08:39; Admin Dose 650 MG; Start 09/09/18 at 16:30 Morphine Sulfate (morphine) 2 mg Q4H PRN IV PAIN LEVEL 7-10 Last administered on 09/13/18at 10:11; Admin Dose 2 MG; Start 09/09/18 at 16:30 Pantoprazole (Protonix Iv) 40 mg DAILY@06 IV Last administered on 09/20/18at 05:46; Admin Dose 40 MG; Start 09/10/18 at 06:00 Miscellaneous Information 1 ea NOTE XX ; Start 09/12/18 at 04:30 Glucose (Glutose) 15 gm Q15M PRN PO DECREASED GLUCOSE; Start 09/12/18 at 04:30 Glucose (Glutose) 22.5 gm Q15M PRN PO DECREASED GLUCOSE; Start 09/12/18 at 04:30 Dextrose (D50w Syringe) 25 ml Q15M PRN IV DECREASED GLUCOSE; Start 09/12/18 at 04:30 Dextrose (D50w Syringe) 50 ml Q15M PRN IV DECREASED GLUCOSE; Start 09/12/18 at 04:30 Glucagon (Glucagen) 1 mg Q15M PRN IM DECREASED GLUCOSE; Start 09/12/18 at 04:30 Glucose (Glutose) 15 gm Q15M PRN BUCCAL DECREASED GLUCOSE; Start 09/12/18 at 04:30 Furosemide (Lasix) 20 mg DAILY@0600 IV Last administered on 09/20/18at 05:47; Admin Dose 20 MG; Start 09/14/18 at 06:00 Aspirin (Aspirin) 81 mg DAILY NGT Last administered on 09/17/18at 09:34; Admin Dose 81 MG; Start 09/14/18 at 09:30; Status Hold Hydralazine HCl (Apresoline) 10 mg Q4H PRN IV SBP ABOVE 160 Last administered on 09/20/18 01:07; Admin Dose 10 MG; Start 09/14/18 at 12:00 Hydralazine HCl (Apresoline) 10 mg Q4H PRN IV SBP >170 Last administered on 09/17/18 04:15; Admin Dose 10 MG; Start 09/15/18 at 15:00 Budesonide (Pulmicort (Neb)) 0.5 mg BID RESP THERAPY HHN Last administered on 09/20/18 07:56; Admin Dose 0.5 MG; Start 09/16/18 at 20:00 Hydralazine HCl (Apresoline) 25 mg Q6 PO Last administered on 09/20/18 08:40; Admin Dose 25 MG; Start 09/17/18 at 12:00 Isosorbide Dinitrate (Isordil) 20 mg TID NGT Last administered on 09/20/18 08:40; Admin Dose 20 MG; Start 09/17/18 at 10:00 Spironolactone (Aldactone) 25 mg DAILY NGT Last administered on 09/20/18 08:40; Admin Dose 25 MG; Start 09/18/18 at 09:00 Albuterol/ Ipratropium (Duoneb) 3 ml Q6H RESP THERAPY HHN Last administered on 09/20/18 07:56; Admin Dose 3 ML; Start 09/18/18 at 20:00 Labetalol HCl (Labetalol) 10 mg Q4H PRN IV sbp>160 Last administered on 09/18/18 16:03; Admin Dose 10 MG; Start 09/18/18 at 14:30 Haloperidol (Haldol) 5 mg Q8 PRN IM agitation; Start 09/18/18 at 16:00 Carvedilol (Coreg) 12.5 mg BID NGT Last administered on 09/20/18 08:40; Admin Dose 12.5 MG; Start 09/19/18 at 09:00 Lisinopril (Zestril) 20 mg BID NGT Last administered on 09/20/18 08:40; Admin Dose 20 MG; Start 09/19/18 at 09:00 Acetaminophen/ Hydrocodone Bitart ([place] (5/325)) 1 tab Q4H PRN PO MODERATE PAIN LEVEL 4-6 Last administered on 09/19/18at 23:17; Admin Dose 1 TAB; Start 09/19/18 at 15:00 Assessment/Plan Chief Complaint/Hosp Course Assessment 1. Status post cardiopulmonary arrest 2. Resolving toxic metabolic encephalopathy 3. Electrolyte abnormalities 4. Probable aspiration pneumonia 5. Resolving acute renal failure likely ATN 6. Anemia likely dilutional no evidence of acute GI bleed Plan 1. Aspiration precautions. 2. PT eval recs 3. Continue broad-spectrum antibiotics consider de-escalation of antibiotics 4. ARU eval. GERARDO INMAN MD, [facility] Sep 20, 2018 12:20
--- NOTE | 2018-09-20 12:54 | NUR ---
Procedure Ordered:CT CEREBRAL ANGIO Reason for Exam Today:?ANEURYSM Previous Exams: Allergies:NKDA Current Medications Taken: Glucophage ( ) Metformin ( ) Previous reaction to contrast media: Yes ( ) No ( X) : Yes ( ) No (X ) Asthma: Yes ( ) No (X ) Diabetes: Yes ( ) No (X ) Myeloma: Yes ( ) No ( X) Heart Disease: Yes ( ) No (X ) Cardiac Disease: Yes ( ) No (X ) Kidney Disease: Yes ( ) No (X ) Vascular Disease: Yes ( ) No (X ) Patient Teaching done: Yes ( ) No ( ) Law Firm Receptionist Used: Yes ( ) No ( ) Name of Law Firm Receptionist: Language Used: As part of the test requested by your doctor, contrast media may be injected into your vein while the x-rays are being taken. Occasionally, reactions from IV contrast may occur. The physician and staff of this hospital are trained to treat these reactions. Select the type of Contrast that will be given to patient: Isovue 300 ( ) Isovue 370 ( ) Visipaque ( ) Cystografin ( ) OMNIPAQUE 350 (X) Gastrographin ( ) Redi-cat ( ) Volumen ( ) Amount of contrast to be given: 80CC IV ( X) PO ( ) Date given:09/19/18 Lab Values: BUN: 14 Creatinine:0.77 Reason why contrast cannot be given: Location of patient pre-procedure:[facility] Location of patient post procedure:[facility] 510A PT TOLERATED IV CONTRAST INJECTION WELL
--- NOTE | 2018-09-20 13:34 | NUR ---
JACOBO NOTES: S/W YVETTE ([phone]) OF [facility] AND INFORMED HER OF PT'S CONDITION AND THAT PT WILL BE NEEDING AN AUTH FOR BIVENTRICULAR AICD PLACEMENT. PER YVETTE, THERE IS NO NEED FOR AN AUTH FOR THE PROCEDURE, IT IS ALL COVERED W/ THE WHOLE HOSPITALIZATION CHARGES. YVETTE WILL ALSO BE ATTEMPTING TO TRANSFER PT TO [facility] ([facility] OR [facility]) TO HAVE THE AICD PLACED. IF SHE IS UNABLE TO, PT CAN GO AHEAD W/ THE AICD PLACEMENT HERE AT [facility]. PT SI SCHEDULED TO HAVE THE PROCEDURE DONE HERE ON SUNDAY (PER DR. SYED). ACUTE TO ACUTE TRANSFER FORM, IMAGING DISC AND COPIED CHART WILL BE AVAILABLE IN THE CHART. YVETTE OR ACCEPTING FACILITY TO CALL BEDSIDE NURSE ABOUT TRANSFER UPDATE. UPDATED CLINICAL AND D/C SUMMARY FAXED TO YVETTE @ [phone]. RICCARDO ECHEVERRIA, DANNYCM [id number]
--- NOTE | 2018-09-20 15:12 | NUR ---
Pt seen for dysphagia f/u. Patient agreeable to session and participated in trials of thin liquids via cup and straw, jello, pureed solids, and soft solids. Patient requires min increased time for bolus formation and initiation of a/p transit. No oral residue noted. Suspect mild delayed initiation of pharyngeal swallow with liquids. Repeat swallows noted with solids. Benefits from small bites/sips, rate modification, upright positioning, alternating solids/ liquids. Patient tolerated all trials without s/s aspiration. Accepted thin liquids in single and consecutive sips. Recommendations: Soft solids/ thin liquids Maintain aspiration precautions and oral care guidelines ST to f/u as pt stay permits Addendum: 09/20/18 at [address] Amended: Links added.
--- NOTE | 2018-09-20 15:12 | CONS ---
Date/Time of Note Date/Time of Note DATE: 09/20/18 TIME: 15:10 Assessment/Plan Assessment/Plan Hospital Course Awake, looks comfortable, no fevers Indwelling's: Right IJ triple-lumen catheter, Dave Antimicrobials: none s/p Vancomycin, Zosyn Physical examination: This is well-developed well-nourished elderly - [place] woman who is intubated sedated in no distress. Head atraumatic normocephalic sclera nonicteric. Neck is supple. Chest rise symmetrical breath sounds clear, diminished bases. Heart: S1-S2. Abdomen soft, bowel sounds present. Extremities without cyanosis. Assessment: 1. S/p sepsis 2. S/p Pneumonia 3. Status post cardiopulmonary arrest 4. Hypertension 5. S/p resp failure==> extubated 6. Leukocytosis Plan: Doing good, tolerates clears, completed 2 weeks abx, pending TLC dc Discussed with family at bedside, discussed with RN Result Diagram: 09/20/18 0602 09/20/18 0602 Results 24hrs Laboratory Tests Test 09/20/18 06:02 White Blood Count 11.1 #H Red Blood Count 3.87 L Hemoglobin 11.6 L Hematocrit 34.8 L Mean Corpuscular Volume 89.9 Mean Corpuscular Hemoglobin 30.0 Mean Corpuscular Hemoglobin Concent 33.3 Red Cell Distribution Width 14.4 Platelet Count 324 # Mean Platelet Volume 10.5 H Immature Granulocytes % 1.300 H Neutrophils % 83.4 H Lymphocytes % 6.2 L Monocytes % 7.7 Eosinophils % 1.0 Basophils % 0.4 Nucleated Red Blood Cells % 0.0 Immature Granulocytes # 0.140 H Neutrophils # 9.2 H Lymphocytes # 0.7 L Monocytes # 0.9 Eosinophils # 0.1 Basophils # 0.0 Nucleated Red Blood Cells # 0.0 Sodium Level 140 Potassium Level 3.3 L Chloride Level 103 Carbon Dioxide Level 29 Anion Gap 8 Blood Urea Nitrogen 14 Creatinine 0.77 Est Glomerular Filtrat Rate mL/min > 60 Glucose Level 97 Calcium Level 8.7 Magnesium Level 2.2 Total Bilirubin 0.5 Direct Bilirubin 0.00 Indirect Bilirubin 0.5 Aspartate Amino Transf (AST/SGOT) 49 H Alanine Aminotransferase (ALT/SGPT) 85 H Alkaline Phosphatase 150 H Total Protein 6.8 Albumin 3.4 Globulin 3.40 H Albumin/Globulin Ratio 1.00 Consultation Date/Type/Reason Admit Date/Time Sep 09, 2018 at 16:10 Initial Consult Date 09/10/18 Type of Consult id Requesting Provider: OZZIE ALVAREZ MD Exam/Review of Systems Vital Signs Vitals Vital Signs Date Temp Pulse Resp B/P (MAP) Pulse Ox O2 O2 Flow FiO2 Time Delivery Rate 09/20/18 89 12:15 09/20/18 98.0 20 143/67 98 11:41 (92) 09/20/18 2.0 08:30 09/20/18 Nasal 07:58 Cannula 09/18/18 40 10:40 Intake and Output 09/19/18 09/19/18 09/20/18 1515:00 23:00 07:00 IntakeIntake Total 930 ml 420 ml 440 ml OutputOutput Total 1425 ml 650 ml 1000 ml BalanceBalance -495 ml -230 ml -560 ml Medications Medications Current Medications Acetaminophen (Tylenol Liquid) 650 mg Q6H PRN NGT PAIN LEVEL 1-3 OR FEVER Last administered on 09/20/18at 08:39; Admin Dose 650 MG; Start 09/09/18 at 16:30 Morphine Sulfate (morphine) 2 mg Q4H PRN IV PAIN LEVEL 7-10 Last administered on 09/13/18at 10:11; Admin Dose 2 MG; Start 09/09/18 at 16:30 Pantoprazole (Protonix Iv) 40 mg DAILY@06 IV Last administered on 09/20/18at 05:46; Admin Dose 40 MG; Start 09/10/18 at 06:00 Miscellaneous Information 1 ea NOTE XX ; Start 09/12/18 at 04:30 Glucose (Glutose) 15 gm Q15M PRN PO DECREASED GLUCOSE; Start 09/12/18 at 04:30 Glucose (Glutose) 22.5 gm Q15M PRN PO DECREASED GLUCOSE; Start 09/12/18 at 04:30 Dextrose (D50w Syringe) 25 ml Q15M PRN IV DECREASED GLUCOSE; Start 09/12/18 at 04:30 Dextrose (D50w Syringe) 50 ml Q15M PRN IV DECREASED GLUCOSE; Start 09/12/18 at 04:30 Glucagon (Glucagen) 1 mg Q15M PRN IM DECREASED GLUCOSE; Start 09/12/18 at 04:30 Glucose (Glutose) 15 gm Q15M PRN BUCCAL DECREASED GLUCOSE; Start 09/12/18 at 04:30 Furosemide (Lasix) 20 mg DAILY@0600 IV Last administered on 09/20/18 05:47; Admin Dose 20 MG; Start 09/14/18 at 06:00 Aspirin (Aspirin) 81 mg DAILY NGT Last administered on 09/17/18 09:34; Admin Dose 81 MG; Start 09/14/18 at 09:30; Status Hold Hydralazine HCl (Apresoline) 10 mg Q4H PRN IV SBP ABOVE 160 Last administered on 09/20/18 01:07; Admin Dose 10 MG; Start 09/14/18 at 12:00 Budesonide (Pulmicort (Neb)) 0.5 mg BID RESP THERAPY HHN Last administered on 09/20/18 07:56; Admin Dose 0.5 MG; Start 09/16/18 at 20:00 Hydralazine HCl (Apresoline) 25 mg Q6 PO Last administered on 09/20/18 08:40; Admin Dose 25 MG; Start 09/17/18 at 12:00 Isosorbide Dinitrate (Isordil) 20 mg TID NGT Last administered on 09/20/18 14:13; Admin Dose 20 MG; Start 09/17/18 at 10:00 Spironolactone (Aldactone) 25 mg DAILY NGT Last administered on 09/20/18 08:40; Admin Dose 25 MG; Start 09/18/18 at 09:00 Albuterol/ Ipratropium (Duoneb) 3 ml Q6H RESP THERAPY HHN Last administered on 09/20/18 07:56; Admin Dose 3 ML; Start 09/18/18 at 20:00 Labetalol HCl (Labetalol) 10 mg Q4H PRN IV sbp>160 Last administered on 09/18/18 16:03; Admin Dose 10 MG; Start 09/18/18 at 14:30 Haloperidol (Haldol) 5 mg Q8 PRN IM agitation; Start 09/18/18 at 16:00 Lisinopril (Zestril) 20 mg BID NGT Last administered on 09/20/18 08:40; Admin Dose 20 MG; Start 09/19/18 at 09:00 Acetaminophen/ Hydrocodone Bitart ([place] (5/325)) 1 tab Q4H PRN PO MODERATE PAIN LEVEL 4-6 Last administered on 09/19/18at 23:17; Admin Dose 1 TAB; Start 09/19/18 at 15:00 Carvedilol (Coreg) 25 mg BID PO ; Start 09/20/18 at 21:00 MICHELLE RECINOS NP Sep 20, 2018 15:12
--- NOTE | 2018-09-20 18:28 | NUR ---
ACUTE REHAB CONSULT ARU Consult Orders verified. Spoke to [address] [phone] who gave update regarding possible patient transfer from [facility] next week d/t insurance capitation per request of patients insurance. Will clarify with CM next week; Will review case with [facility] medical pathologist. Thank you for the referral. Cuong Lea [facility] [phone]
--- NOTE | 2018-09-20 18:58 | NUR ---
EOSS: A/O x 4, BP elevated to average 170s SBP, asymptomatic, MD aware, prn hydralazine given. Head CTA done today, results reported to hospitalist, no orders at this time. Pending AICD placement, (see case management note for reference re: transfer). Pt attempted to use bathroom, assisted to slowly sit up from bed, unable to tolerate. Assisted pt to use the bedpan. All needs attended at this time, will endorse plan of care to oncoming shift accordingly.
--- NOTE | 2018-09-20 20:10 | NUR ---
U/S Kidney study ordered to r/o YESSY. RN taking care of pt unavailable. Spoke with chargemaster analyst and instructed to keep pt NPO after midnight and change order to VAS renal artery exam at 2011.
--- NOTE | 2018-09-20 20:23 | CONS ---
Date/Time of Note Date/Time of Note DATE: 09/20/18 TIME: 20:21 Consult Date/Type/Reason Admit Date/Time Sep 09, 2018 at 16:10 Initial Consult Date 09/10/18 Type of Consultation: cv Requesting Provider: OZZIE ALVAREZ MD Subjective Interventional cardiology follow-up progress note/critical care note Subjective: Case discussed with the staff and rhythm was reviewed. Patient remains in sinus rhythm . no VT. d/w multiple physicians D/W daughter and son in law pt has been hypertensive mostly. she denies any chest pain to me 09/17/18: [facility] iva shows no significant obstructive coronary artery disease O: General: no acute distress HEENT: NC/AT. pupils are equal. round. NECK: no stridor. CV: RRR. systolic murmur; no gallop or rubs. PULM: no wheezing + rhonchi in the right side. GI: SOFT, NT, ND, no rebound or guarding Extremity: trace B/L LE edema. no clubbing. neuro: awake and alert Ox 2 Psych: calm rectal: deferred Right femoral artery with no bleeding or hematoma CXR 09/16/18: Since the prior study, there has been no significant interval change in the appearance of the heart or lungs or position of tubes and lines allowing for slight differences in technique and positioning.. Tubes and lines remain in good position. Right lung infiltrate is again seen with slight fluid in the minor fissure. The left lung remains relatively clear. echo reviewed Normal left ventricular cavity size. Moderate concentric left ventricular hypertrophy. Severe global left ventricular systolic dysfunction. Ejection fraction is visually estimated at 20 %. Mitral valve leaflets appear mildly thickened. Mild mitral annular calcification. Trace mitral regurgitation. No significant aortic stenosis or insufficiency. Aortic cusps appear mildly calcified. Normal appearance of the tricuspid valve. Estimated peak PA systolic pressure 27 mmHg. There is mild tricuspid regurgitation. Dilated IVC without respiratory collapse, however, patient on ventilator. ECHO 09/17/18 reviewed personally: Lower limits of normal systolic function. Normal left ventricular cavity size. Mild concentric left ventricular hypertrophy. Paradoxical septal motion consistent with IVCD or bundle branch block. Ejection fraction is visually estimated at 50 %. Tissue Doppler/Mitral Doppler indices are consistent with impaired relaxation (Stage I diastolic dysfunction). Compared to echo done on September 10, 2018 ejection fraction has significantly improved now. Mitral valve leaflets appear mildly thickened. Mild mitral annular calcification. Trace mitral regurgitation. Aortic sclerosis without significant stenosis. Trace aortic valve regurgitation. Normal appearance of the tricuspid valve. Estimated peak PA systolic pressure 33 mmHg. There is mild tricuspid regurgitation. Dilated IVC without respiratory collapse, however, patient on ventilator. Objective Vital Signs Date Temp Pulse Resp B/P (MAP) Pulse Ox O2 O2 Flow FiO2 Time Delivery Rate 09/20/18 97.6 81 18 166/88 93 19:45 (114) 09/20/18 Nasal 2.0 19:44 Cannula 09/18/18 40 10:40 Intake and Output 09/19/18 09/19/18 09/20/18 1515:00 23:00 07:00 IntakeIntake Total 930 ml 420 ml 440 ml OutputOutput Total 1425 ml 650 ml 1000 ml BalanceBalance -495 ml -230 ml -560 ml Results/Medications Result Diagram: 09/20/18 0602 09/20/18 0602 Results 24 hrs Laboratory Tests Test 09/20/18 06:02 White Blood Count 11.1 #H Red Blood Count 3.87 L Hemoglobin 11.6 L Hematocrit 34.8 L Mean Corpuscular Volume 89.9 Mean Corpuscular Hemoglobin 30.0 Mean Corpuscular Hemoglobin Concent 33.3 Red Cell Distribution Width 14.4 Platelet Count 324 # Mean Platelet Volume 10.5 H Immature Granulocytes % 1.300 H Neutrophils % 83.4 H Lymphocytes % 6.2 L Monocytes % 7.7 Eosinophils % 1.0 Basophils % 0.4 Nucleated Red Blood Cells % 0.0 Immature Granulocytes # 0.140 H Neutrophils # 9.2 H Lymphocytes # 0.7 L Monocytes # 0.9 Eosinophils # 0.1 Basophils # 0.0 Nucleated Red Blood Cells # 0.0 Sodium Level 140 Potassium Level 3.3 L Chloride Level 103 Carbon Dioxide Level 29 Anion Gap 8 Blood Urea Nitrogen 14 Creatinine 0.77 Est Glomerular Filtrat Rate mL/min > 60 Glucose Level 97 Calcium Level 8.7 Magnesium Level 2.2 Total Bilirubin 0.5 Direct Bilirubin 0.00 Indirect Bilirubin 0.5 Aspartate Amino Transf (AST/SGOT) 49 H Alanine Aminotransferase (ALT/SGPT) 85 H Alkaline Phosphatase 150 H Total Protein 6.8 Albumin 3.4 Globulin 3.40 H Albumin/Globulin Ratio 1.00 Medications Current Medications Acetaminophen (Tylenol Liquid) 650 mg Q6H PRN NGT PAIN LEVEL 1-3 OR FEVER Last administered on 09/20/18at 08:39; Admin Dose 650 MG; Start 09/09/18 at 16:30 Morphine Sulfate (morphine) 2 mg Q4H PRN IV PAIN LEVEL 7-10 Last administered on 09/13/18at 10:11; Admin Dose 2 MG; Start 09/09/18 at 16:30 Pantoprazole (Protonix Iv) 40 mg DAILY@06 IV Last administered on 09/20/18at 05:46; Admin Dose 40 MG; Start 09/10/18 at 06:00 Miscellaneous Information 1 ea NOTE XX ; Start 09/12/18 at 04:30 Glucose (Glutose) 15 gm Q15M PRN PO DECREASED GLUCOSE; Start 09/12/18 at 04:30 Glucose (Glutose) 22.5 gm Q15M PRN PO DECREASED GLUCOSE; Start 09/12/18 at 04:30 Dextrose (D50w Syringe) 25 ml Q15M PRN IV DECREASED GLUCOSE; Start 09/12/18 at 04:30 Dextrose (D50w Syringe) 50 ml Q15M PRN IV DECREASED GLUCOSE; Start 09/12/18 at 04:30 Glucagon (Glucagen) 1 mg Q15M PRN IM DECREASED GLUCOSE; Start 09/12/18 at 04:30 Glucose (Glutose) 15 gm Q15M PRN BUCCAL DECREASED GLUCOSE; Start 09/12/18 at 04:30 Furosemide (Lasix) 20 mg DAILY@0600 IV Last administered on 09/20/18at 05:47; Admin Dose 20 MG; Start 09/14/18 at 06:00 Aspirin (Aspirin) 81 mg DAILY NGT Last administered on 09/17/18at 09:34; Admin Dose 81 MG; Start 09/14/18 at 09:30; Status Hold Hydralazine HCl (Apresoline) 10 mg Q4H PRN IV SBP ABOVE 160 Last administered on 09/20/18at 15:38; Admin Dose 10 MG; Start 09/14/18 at 12:00 Budesonide (Pulmicort (Neb)) 0.5 mg BID RESP THERAPY HHN Last administered on 09/20/18at 19:44; Admin Dose 0.5 MG; Start 09/16/18 at 20:00 Hydralazine HCl (Apresoline) 25 mg Q6 PO Last administered on 09/20/18 18:41; Admin Dose 25 MG; Start 09/17/18 at 12:00 Isosorbide Dinitrate (Isordil) 20 mg TID NGT Last administered on 09/20/18 20:17; Admin Dose 20 MG; Start 09/17/18 at 10:00 Albuterol/ Ipratropium (Duoneb) 3 ml Q6H RESP THERAPY HHN Last administered on 09/20/18at 19:44; Admin Dose 3 ML; Start 09/18/18 at 20:00 Labetalol HCl (Labetalol) 10 mg Q4H PRN IV sbp>160 Last administered on 09/18/18at 16:03; Admin Dose 10 MG; Start 09/18/18 at 14:30 Haloperidol (Haldol) 5 mg Q8 PRN IM agitation; Start 09/18/18 at 16:00 Lisinopril (Zestril) 20 mg BID NGT Last administered on 09/20/18at 20:17; Admin Dose 20 MG; Start 09/19/18 at 09:00 Acetaminophen/ Hydrocodone Bitart ([place] (5/325)) 1 tab Q4H PRN PO MODERATE PAIN LEVEL 4-6 Last administered on 09/19/18at 23:17; Admin Dose 1 TAB; Start 09/19/18 at 15:00 Carvedilol (Coreg) 25 mg BID PO Last administered on 09/20/18at 20:17; Admin Dose 25 MG; Start 09/20/18 at 21:00 Spironolactone (Aldactone) 50 mg DAILY NGT ; Start 09/21/18 at 09:00 Assessment/Plan Chief Complaint/Hosp Course 1. Status post cardiopulmonary arrest 2. Hypoxemic hypercapnic respiratory failure status post intubation on the vent: now extubated 3. Right lung infiltrate consistent with pneumonia possible aspiration pneumonia 4. s/p VF/ V. tach arrest: 5. Encephalopathy 6. Severe lactic acidosis: resolved 7. Hyperglycemia: resolved 8. Transaminitis 9. Severe hypokalemia: corrected 10. Positive troponin consistent with NSTEMI; however, given the fact that patient had normal coronaries this most likely secondary to CPR and cardiopulmonary arrest and not true VA 11. Cardiomyopathy and hypertensive heart disease: EF improved from 20%now up to 50% 12. JULISSA : improved now 13. thrombocytopenia:resolved now 14. Anemia; s/p transfusion Recommendations: Continue with resp care. correct the potassium and Mg to keep K more than 4, magnesium more than 2 Antibiotic management will be deferred to internal medicine/pulmonary team Repeat echo has shown significant improvement in LV systolic function. WILL continue pt on hydralazine/ isordil. cont lisinopril and inc Aldactone and coreg . pt may have secondary HTN due to hyperaldosteronism or renal artery stenosis. I will order renal artery study to rule out renal artery stenosis ASA is on hold now given her worsening anemia and hematuria I have recommended the patient to have ICD placement before she is ready to be discharged home. I have tentatively scheduled her for Sunday morning for defibrillator placement. Thank you for his referral. We will continue to follow along with you DEMETRIUS MCCRAY MD [facility] DEMETRIUS MCCRAY MD Sep 20, 2018 20:23
[2018-09-21] VITALS (12 sets, daily range): BP systolic 118–171; BP diastolic 59–96; PULSE 79–97; RESP 18–19
[2018-09-21] MEDS: ALBUTEROL/IPRATROPIUM (NEB) 3 ML AMP HHN SCH ×4 (01:26→20:33)
[2018-09-21] MEDS: FUROSEMIDE 20 MG INJ IV SCH (06:02)
[2018-09-21] MEDS: PANTOPRAZOLE 40 MG INJ IV SCH (06:02)
--- NOTE | 2018-09-21 06:51 | NUR ---
End of shift notes: Pt is A/O x2; SR/ ST on the monitor. BP still on the high side inspite of all her BP meds. Denies any pain, unable to sleep well during the nights. Kept NPO post midnight. Schedule for Vascular renal ultrasound to r/o YESSY. For possible AICD placement on Sunday if not accepted in [facility]. Endorsed to day shift.
[2018-09-21] MEDS: BUDESONIDE (NEB) 0.5MG/2ML AMP HHN SCH ×2 (08:55→20:33)
[2018-09-21] MEDS ORDERED: POTASSIUM CHLORIDE 20 MEQ POWDER FOR ORAL SOLN PO ONE (09:00)
[2018-09-21] MEDS: ISOSORBIDE DINITRATE 20 MG TAB NGT SCH ×4 (09:00→20:09)
[2018-09-21] MEDS: SPIRONOLACTONE 50 MG TAB NGT SCH (11:15)
[2018-09-21] MEDS: LISINOPRIL 20 MG TAB NGT SCH ×2 (11:15→20:10)
[2018-09-21] MEDS: ASPIRIN 81 MG TAB NGT SCH (11:15)
--- NOTE | 2018-09-21 11:49 | CONS ---
Date/Time of Note Date/Time of Note DATE: 09/21/18 TIME: 11:40 Assessment/Plan Assessment/Plan Result Diagram: 09/20/18 0602 09/20/18 0602 Results 24hrs Laboratory Tests Test 09/21/18 11:07 White Blood Count Pending Red Blood Count Pending Hemoglobin Pending Hematocrit Pending Mean Corpuscular Volume Pending Mean Corpuscular Hemoglobin Pending Mean Corpuscular Hemoglobin Concent Pending Red Cell Distribution Width Pending Platelet Count Pending Mean Platelet Volume Pending Consultation Date/Type/Reason Admit Date/Time Sep 09, 2018 at 16:10 Initial Consult Date SUBJECTIVE: Pt is awake, alert, resting in bed. No fevers. VS: stable. t: 98.1 LABS: reviewed. Indwelling's: Right IJ triple-lumen catheter, Dave CT of Brain: IMPRESSION: 1. 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 2. Mild intracranial atherosclerosis with no significant stenosis. 3. Eccentric fibrofatty and calcified plaque at the proximal right ICA with less than 50% stenosis. 4. Beaded appearance of the cervical segments of bilateral internal carotid arteries suggestive of fibromuscular dysplasia. Antimicrobials: none s/p Vancomycin, Zosyn Physical examination: GEN: This is well-developed well-nourished elderly -[place] woman who is intubated sedated in no distress. HENT: Head atraumatic normocephalic sclera nonicteric. Neck is supple. PULM: Chest rise symmetrical, breath sounds clear, diminished bases. Heart: S1-S2. Abdomen soft, bowel sounds present. Extremities without cyanosis. Assessment: 1. S/p sepsis 2. S/p Pneumonia 3. Status post cardiopulmonary arrest 4. Hypertension 5. S/p resp failure==> extubated 6. Leukocytosis Plan: Pt is stable. Completed 2 weeks abx, CT of brain noted. Requesting Provider: OZZIE ALVAREZ MD Exam/Review of Systems Vital Signs Vitals Vital Signs Date Temp Pulse Resp B/P (MAP) Pulse Ox O2 O2 Flow FiO2 Time Delivery Rate 09/21/18 98 2.0 08:55 09/21/18 101 26 Nasal 08:55 Cannula 09/21/18 98.1 171/96 07:53 (121) 09/18/18 40 10:40 Intake and Output 09/20/18 09/20/18 09/21/18 1515:00 23:00 07:00 IntakeIntake Total 900 ml 800 ml OutputOutput Total 2200 ml 1500 ml BalanceBalance -1300 ml -700 ml Medications Medications Current Medications Acetaminophen (Tylenol Liquid) 650 mg Q6H PRN NGT PAIN LEVEL 1-3 OR FEVER Last administered on 09/20/18at 08:39; Admin Dose 650 MG; Start 09/09/18 at 16:30 Morphine Sulfate (morphine) 2 mg Q4H PRN IV PAIN LEVEL 7-10 Last administered on 09/13/18at 10:11; Admin Dose 2 MG; Start 09/09/18 at 16:30 Pantoprazole (Protonix Iv) 40 mg DAILY@06 IV Last administered on 09/21/18at 06:02; Admin Dose 40 MG; Start 09/10/18 at 06:00 Miscellaneous Information 1 ea NOTE XX ; Start 09/12/18 at 04:30 Glucose (Glutose) 15 gm Q15M PRN PO DECREASED GLUCOSE; Start 09/12/18 at 04:30 Glucose (Glutose) 22.5 gm Q15M PRN PO DECREASED GLUCOSE; Start 09/12/18 at 04:30 Dextrose (D50w Syringe) 25 ml Q15M PRN IV DECREASED GLUCOSE; Start 09/12/18 at 04:30 Dextrose (D50w Syringe) 50 ml Q15M PRN IV DECREASED GLUCOSE; Start 09/12/18 at 04:30 Glucagon (Glucagen) 1 mg Q15M PRN IM DECREASED GLUCOSE; Start 09/12/18 at 04:30 Glucose (Glutose) 15 gm Q15M PRN BUCCAL DECREASED GLUCOSE; Start 09/12/18 at 04:30 Furosemide (Lasix) 20 mg DAILY@0600 IV Last administered on 09/21/18at 06:02; Admin Dose 20 MG; Start 09/14/18 at 06:00 Aspirin (Aspirin) 81 mg DAILY NGT Last administered on 09/21/18at 11:15; Admin Dose 81 MG; Start 09/14/18 at 09:30 Hydralazine HCl (Apresoline) 10 mg Q4H PRN IV SBP ABOVE 160 Last administered on 09/20/18at 15:38; Admin Dose 10 MG; Start 09/14/18 at 12:00 Budesonide (Pulmicort (Neb)) 0.5 mg BID RESP THERAPY HHN Last administered on 09/21/18 08:55; Admin Dose 0.5 MG; Start 09/16/18 at 20:00 Hydralazine HCl (Apresoline) 25 mg Q6 PO Last administered on 09/21/18 11:15; Admin Dose 25 MG; Start 09/17/18 at 12:00 Isosorbide Dinitrate (Isordil) 20 mg TID NGT Last administered on 09/21/18 11:15; Admin Dose 20 MG; Start 09/17/18 at 10:00 Albuterol/ Ipratropium (Duoneb) 3 ml Q6H RESP THERAPY HHN Last administered on 09/21/18 08:55; Admin Dose 3 ML; Start 09/18/18 at 20:00 Labetalol HCl (Labetalol) 10 mg Q4H PRN IV sbp>160 Last administered on 09/18/18 16:03; Admin Dose 10 MG; Start 09/18/18 at 14:30 Haloperidol (Haldol) 5 mg Q8 PRN IM agitation; Start 09/18/18 at 16:00 Lisinopril (Zestril) 20 mg BID NGT Last administered on 09/21/18 11:15; Admin Dose 20 MG; Start 09/19/18 at 09:00 Acetaminophen/ Hydrocodone Bitart ([place] (5/325)) 1 tab Q4H PRN PO MODERATE PAIN LEVEL 4-6 Last administered on 09/19/18at 23:17; Admin Dose 1 TAB; Start 09/19/18 at 15:00 Carvedilol (Coreg) 25 mg BID PO Last administered on 09/21/18 11:14; Admin Dose 25 MG; Start 09/20/18 at 21:00 Spironolactone (Aldactone) 50 mg DAILY NGT Last administered on 09/21/18 11:1 5; Admin Dose 50 MG; Start 09/21/18 at 09:00 APARNA LEWIS Sep 21, 2018 11:49
--- NOTE | 2018-09-21 12:10 | NUR ---
RN NOTES: Received critical K+ level 2.9, notified Dr. Melton, orders received and carried out accordingly.
--- NOTE | 2018-09-21 12:20 | PN ---
Date/Time of Note Date/Time of Note DATE: 09/21/18 TIME: 12:15 Objective Vitals Vital Signs Date Temp Pulse Resp B/P (MAP) Pulse Ox O2 O2 Flow FiO2 Time Delivery Rate 09/21/18 98.1 79 19 124/69 96 12:00 (87) 09/21/18 2.0 08:55 09/21/18 Nasal 08:55 Cannula 09/18/18 40 10:40 Intake and Output 09/20/18 09/20/18 09/21/18 1515:00 23:00 07:00 IntakeIntake Total 900 ml 800 ml OutputOutput Total 2200 ml 1500 ml BalanceBalance -1300 ml -700 ml Results Result Diagram: 09/21/18 1107 09/21/18 1107 Medications Medications Current Medications Acetaminophen (Tylenol Liquid) 650 mg Q6H PRN NGT PAIN LEVEL 1-3 OR FEVER Last administered on 09/20/18at 08:39; Admin Dose 650 MG; Start 09/09/18 at 16:30 Morphine Sulfate (morphine) 2 mg Q4H PRN IV PAIN LEVEL 7-10 Last administered on 09/13/18at 10:11; Admin Dose 2 MG; Start 09/09/18 at 16:30 Pantoprazole (Protonix Iv) 40 mg DAILY@06 IV Last administered on 09/21/18at 06:02; Admin Dose 40 MG; Start 09/10/18 at 06:00 Miscellaneous Information 1 ea NOTE XX ; Start 09/12/18 at 04:30 Glucose (Glutose) 15 gm Q15M PRN PO DECREASED GLUCOSE; Start 09/12/18 at 04:30 Glucose (Glutose) 22.5 gm Q15M PRN PO DECREASED GLUCOSE; Start 09/12/18 at 04:30 Dextrose (D50w Syringe) 25 ml Q15M PRN IV DECREASED GLUCOSE; Start 09/12/18 at 04:30 Dextrose (D50w Syringe) 50 ml Q15M PRN IV DECREASED GLUCOSE; Start 09/12/18 at 04:30 Glucagon (Glucagen) 1 mg Q15M PRN IM DECREASED GLUCOSE; Start 09/12/18 at 04:30 Glucose (Glutose) 15 gm Q15M PRN BUCCAL DECREASED GLUCOSE; Start 09/12/18 at 04:30 Furosemide (Lasix) 20 mg DAILY@0600 IV Last administered on 09/21/18 06:02; Admin Dose 20 MG; Start 09/14/18 at 06:00 Aspirin (Aspirin) 81 mg DAILY NGT Last administered on 09/21/18 11:15; Admin Dose 81 MG; Start 09/14/18 at 09:30 Hydralazine HCl (Apresoline) 10 mg Q4H PRN IV SBP ABOVE 160 Last administered on 09/20/18 15:38; Admin Dose 10 MG; Start 09/14/18 at 12:00 Budesonide (Pulmicort (Neb)) 0.5 mg BID RESP THERAPY HHN Last administered on 09/21/18 08:55; Admin Dose 0.5 MG; Start 09/16/18 at 20:00 Hydralazine HCl (Apresoline) 25 mg Q6 PO Last administered on 09/21/18 11:15; Admin Dose 25 MG; Start 09/17/18 at 12:00 Isosorbide Dinitrate (Isordil) 20 mg TID NGT Last administered on 09/21/18 11:15; Admin Dose 20 MG; Start 09/17/18 at 10:00 Albuterol/ Ipratropium (Duoneb) 3 ml Q6H RESP THERAPY HHN Last administered on 09/21/18 08:55; Admin Dose 3 ML; Start 09/18/18 at 20:00 Labetalol HCl (Labetalol) 10 mg Q4H PRN IV sbp>160 Last administered on 09/18/18 16:03; Admin Dose 10 MG; Start 09/18/18 at 14:30 Haloperidol (Haldol) 5 mg Q8 PRN IM agitation; Start 09/18/18 at 16:00 Lisinopril (Zestril) 20 mg BID NGT Last administered on 09/21/18 11:15; Admin Dose 20 MG; Start 09/19/18 at 09:00 Acetaminophen/ Hydrocodone Bitart ([place] (5/325)) 1 tab Q4H PRN PO MODERATE PAIN LEVEL 4-6 Last administered on 09/19/18 23:17; Admin Dose 1 TAB; Start 09/19/18 at 15:00 Carvedilol (Coreg) 25 mg BID PO Last administered on 09/21/18 11:14; Admin Dose 25 MG; Start 09/20/18 at 21:00 Spironolactone (Aldactone) 50 mg DAILY NGT Last administered on 09/21/18at 11:15; Admin Dose 50 MG; Start 09/21/18 at 09:00 VTE Prophylaxis Risk score (from [facility])>0 risk: 4 SCD applied (from [facility]): Yes Lines/Catheters IV Catheter Type: Dave in Place: No Assessment/Plan Hospital Course Subjective Patient doing well, back to normal cognition Objective Physical exam General: Patient is laying in bed, responding normally Mentation: Patient is alert and oriented x4 Head: Normocephalic atraumatic Eyes: EOMI, pupils reactive to light Neck: Supple, nontender, midline Respiratory: Clear to auscultation bilaterally Cardiovascular: regular rate, no obvious murmurs Gastrointestinal: non-tender to palpation, bowel sounds heard. Neurological: Moves all extremities spontaneously Skin: No new skin lesions Assessment/Plan encephalopathy -resolved -likely due to extensive intubation period fibromuscular dysplasia -seen on CT angio of the brain -Also likely the underlying cause of patient's blood pressure issues as she likely has the effects of the fibromuscular dysplasia throughout her body including the renal arteries -Aneurysm also seen on the CT angios of the brain likely 2/2 to fibromusclar dysplasia, partially calcified, likely not a surgical candidate due to calcification however patient will likely need very close follow-up with a neurologist with repeated scans and possible further intervention if deemed necessary. Patient is currently not having any overt symptoms in regards to her renal function or any strokelike symptoms, stable Acute hypoxic respiratory failure 2/2 chf - Pulm on board and appreciate consultation - resolving Vfib Cardiac arrest with ROSC s/p hypothermia protocol - Cardiology on board and appreciate consultation. Will continue current treatment with goal K >4 and Mg >2 - After being found down in Vfib arrest, patient underwent ACLS with 4 rounds of epi, Amiodarone x1, bicarb with ROSC. Patient noted with hypokalemia with K 2.1 at time of admission - ECHO reviewed and patient with poor EF 20%. - cardiac cath done 09/17/18, no significant stenosis, per cardiology will most likely need BIV ICD before discharge Septic shock secondary to aspiration pneumonia- improving - Off pressor support and will wean from vent as tolerated -finished abx - CXR results show slight progression of right pneumonia - Nebs PRN - Lactic acid normalized - ID consulted Transaminitis- improving - most likely secondary to hypoperfusion - trending down HTN Hypokalemia- improving - will continue replacing with goal >4 JULISSA- improving - Nephrology consultation appreciated. continue on lasix and off IVF Disposition -Patient is capitated to the [facility] health system, case management has been notified, discharge summary has been sent over to [facility], awaiting callback from [facility], as of right now AICD placement is scheduled for next Sunday with Dr. Graham, versus transfer to [facility], which ever comes first. PIYUSH SYED Sep 21, 2018 12:20
[2018-09-21] MEDS: POTASSIUM CHLORIDE (SR) 20 MEQ TAB PO SCH ×2 (13:23→16:48)
--- NOTE | 2018-09-21 14:58 | CONS ---
Date/Time of Note Date/Time of Note DATE: 09/21/18 TIME: 14:57 Consult Date/Type/Reason Admit Date/Time Sep 09, 2018 at 16:10 Initial Consult Date 09/10/18 Type of Consultation: Pulm Requesting Provider: OZZIE ALVAREZ MD Subjective No events overnight. No c/o. Objective Vital Signs Date Temp Pulse Resp B/P (MAP) Pulse Ox O2 O2 Flow FiO2 Time Delivery Rate 09/21/18 89 22 97 Nasal 2.0 13:41 Cannula 09/21/18 98.1 124/69 12:00 (87) 09/18/18 40 10:40 Intake and Output 09/20/18 09/20/18 09/21/18 1515:00 23:00 07:00 IntakeIntake Total 900 ml 800 ml OutputOutput Total 2200 ml 1500 ml BalanceBalance -1300 ml -700 ml Exam NECK: Supple. No JVD or lymphadenopathy. CARDIAC EXAM: S1, S2. No added sounds or murmurs. CHEST: diminished air entry bilaterally ABDOMEN: Soft, nontender. No guarding or rebound. EXTREMITIES: No cyanosis, clubbing edema +1, NEUROLOGIC: Generalized weakness. Results/Medications Result Diagram: 09/21/18 1107 09/21/18 1107 Results 24 hrs Laboratory Tests Test 09/21/18 11:07 White Blood Count 9.7 Red Blood Count 4.07 L Hemoglobin 12.0 Hematocrit 36.4 L Mean Corpuscular Volume 89.4 Mean Corpuscular Hemoglobin 29.5 Mean Corpuscular Hemoglobin Concent 33.0 Red Cell Distribution Width 14.4 Platelet Count 375 Mean Platelet Volume 10.4 Immature Granulocytes % 1.100 H Neutrophils % 80.0 H Lymphocytes % 8.0 L Monocytes % 9.0 Eosinophils % 1.6 Basophils % 0.3 Nucleated Red Blood Cells % 0.0 Immature Granulocytes # 0.110 H Neutrophils # 7.8 H Lymphocytes # 0.8 Monocytes # 0.9 Eosinophils # 0.2 Basophils # 0.0 Nucleated Red Blood Cells # 0.0 Sodium Level 142 Potassium Level 2.9 *L Chloride Level 104 Carbon Dioxide Level 28 Anion Gap 10 Blood Urea Nitrogen 13 Creatinine 0.86 Est Glomerular Filtrat Rate mL/min > 60 Glucose Level 105 Calcium Level 9.0 Total Bilirubin 0.3 Direct Bilirubin 0.00 Indirect Bilirubin 0.3 Aspartate Amino Transf (AST/SGOT) 43 Alanine Aminotransferase (ALT/SGPT) 64 Alkaline Phosphatase 152 H Total Protein 7.0 Albumin 3.7 Globulin 3.30 H Albumin/Globulin Ratio 1.12 Medications Current Medications Acetaminophen (Tylenol Liquid) 650 mg Q6H PRN NGT PAIN LEVEL 1-3 OR FEVER Last administered on 09/20/18at 08:39; Admin Dose 650 MG; Start 09/09/18 at 16:30 Morphine Sulfate (morphine) 2 mg Q4H PRN IV PAIN LEVEL 7-10 Last administered on 09/13/18at 10:11; Admin Dose 2 MG; Start 09/09/18 at 16:30 Pantoprazole (Protonix Iv) 40 mg DAILY@06 IV Last administered on 09/21/18 06:02; Admin Dose 40 MG; Start 09/10/18 at 06:00 Miscellaneous Information 1 ea NOTE XX ; Start 09/12/18 at 04:30 Glucose (Glutose) 15 gm Q15M PRN PO DECREASED GLUCOSE; Start 09/12/18 at 04:30 Glucose (Glutose) 22.5 gm Q15M PRN PO DECREASED GLUCOSE; Start 09/12/18 at 04:30 Dextrose (D50w Syringe) 25 ml Q15M PRN IV DECREASED GLUCOSE; Start 09/12/18 at 04:30 Dextrose (D50w Syringe) 50 ml Q15M PRN IV DECREASED GLUCOSE; Start 09/12/18 at 04:30 Glucagon (Glucagen) 1 mg Q15M PRN IM DECREASED GLUCOSE; Start 09/12/18 at 04:30 Glucose (Glutose) 15 gm Q15M PRN BUCCAL DECREASED GLUCOSE; Start 09/12/18 at 04:30 Furosemide (Lasix) 20 mg DAILY@0600 IV Last administered on 09/21/18at 06:02; Admin Dose 20 MG; Start 09/14/18 at 06:00 Aspirin (Aspirin) 81 mg DAILY NGT Last administered on 09/21/18at 11:15; Admin Dose 81 MG; Start 09/14/18 at 09:30 Hydralazine HCl (Apresoline) 10 mg Q4H PRN IV SBP ABOVE 160 Last administered on 09/20/18at 15:38; Admin Dose 10 MG; Start 09/14/18 at 12:00 Budesonide (Pulmicort (Neb)) 0.5 mg BID RESP THERAPY HHN Last administered on 09/21/18 08:55; Admin Dose 0.5 MG; Start 09/16/18 at 20:00 Hydralazine HCl (Apresoline) 25 mg Q6 PO Last administered on 09/21/18 11:15; Admin Dose 25 MG; Start 09/17/18 at 12:00 Isosorbide Dinitrate (Isordil) 20 mg TID NGT Last administered on 09/21/18 13:28; Admin Dose 20 MG; Start 09/17/18 at 10:00 Albuterol/ Ipratropium (Duoneb) 3 ml Q6H RESP THERAPY HHN Last administered on 09/21/18 13:41; Admin Dose 3 ML; Start 09/18/18 at 20:00 Labetalol HCl (Labetalol) 10 mg Q4H PRN IV sbp>160 Last administered on 09/18/18 16:03; Admin Dose 10 MG; Start 09/18/18 at 14:30 Haloperidol (Haldol) 5 mg Q8 PRN IM agitation; Start 09/18/18 at 16:00 Lisinopril (Zestril) 20 mg BID NGT Last administered on 09/21/18 11:15; Admin Dose 20 MG; Start 09/19/18 at 09:00 Acetaminophen/ Hydrocodone Bitart ([place] (5/325)) 1 tab Q4H PRN PO MODERATE PAIN LEVEL 4-6 Last administered on 09/19/18 23:17; Admin Dose 1 TAB; Start 09/19/18 at 15:00 Carvedilol (Coreg) 25 mg BID PO Last administered on 09/21/18 11:14; Admin Dose 25 MG; Start 09/20/18 at 21:00 Spironolactone (Aldactone) 50 mg DAILY NGT Last administered on 09/21/18 11:15; Admin Dose 50 MG; Start 09/21/18 at 09:00 Potassium Chloride (Klor-Con 20) 40 meq Q4H PO Last administered on 09/21/18 13:23; Admin Dose 40 MEQ; Start 09/21/18 at 12:30; Stop 09/21/18 at 16:31 Assessment/Plan Additional Assessment/Plan IMP: 1. Status post cardiopulmonary arrest 2. Resolving toxic metabolic encephalopathy 3. Electrolyte abnormalities 4. Probable aspiration pneumonia 5. Resolving acute renal failure likely ATN 6. Anemia likely dilutional no evidence of acute GI bleed RECS: 1. Aspiration precautions 2. PT/OT 3. De-escalation of antibiotics JUAN ANTONIO CASTILLO MD Sep 21, 2018 14:58
--- NOTE | 2018-09-21 18:55 | NUR ---
EOSS: Pt a/o x 3-4, denies pain, BP improved significantly. Renal US done. Dr. Melton saw pt and discussed her diagnosis. Pending hospital transfer and change of primary MD(see CM notes). SW vp information technology spoke to family through the phone to discuss insurance/personal situation. Also pt was seen by PT today, assisted pt to bedside commode. Pt seems to be stronger today and able to hold herself up while sitting on bed. All needs attended at this time. Will endorse plan of care to oncoming shift accordingly.
[2018-09-22] VITALS (12 sets, daily range): BP systolic 89–146; BP diastolic 50–81; PULSE 75–85; RESP 16–20
[2018-09-22] MEDS: ALBUTEROL/IPRATROPIUM (NEB) 3 ML AMP HHN SCH ×4 (02:18→20:23)
[2018-09-22] MEDS: PANTOPRAZOLE 40 MG INJ IV SCH (06:12)
[2018-09-22] MEDS: FUROSEMIDE 20 MG INJ IV SCH (06:12)
[2018-09-22] MEDS: hydrALAzine 20 MG INJ IV PRN (06:48)
--- NOTE | 2018-09-22 06:52 | NUR ---
end of shift note: pt vital signs stable overnight, no acute distress, still on 2L of oxygen NC, daughter and son in law at bedside, SBP in the morning around 0600 was in 160-170, one dose of hydralazine IV prn given, will check BP later, continue to monitor pt
[2018-09-22] MEDS: BUDESONIDE (NEB) 0.5MG/2ML AMP HHN SCH ×2 (09:00→20:23)
[2018-09-22] MEDS: SPIRONOLACTONE 50 MG TAB NGT SCH (10:01)
[2018-09-22] MEDS: LISINOPRIL 20 MG TAB NGT SCH ×2 (10:01→21:00)
[2018-09-22] MEDS: ISOSORBIDE DINITRATE 20 MG TAB NGT SCH ×3 (10:01→21:00)
[2018-09-22] MEDS: ASPIRIN 81 MG TAB NGT SCH (10:01)
--- NOTE | 2018-09-22 12:29 | CONS ---
Date/Time of Note Date/Time of Note DATE: 09/22/18 TIME: 12:28 Assessment/Plan Assessment/Plan Hospital Course ID INITIAL NOTE CURRENT ABX: DAY #= OFF ABX s/p Vanco IV 09/21/18 1107 09/21/18 1107 24H INTERVAL SUMMARY * A/A/O -- very positive affect, smiling, celebrating, watching the [employer] game with her beautiful young adult children. * No fevers, VSS, no cough, taking POx without difficulty, still on supplemental O2 via NC * Asymptomatic -- tells me pacer planned for next week * 09/19/18 CXR: IMPRESSION: Interval removal of endotracheal tube. Otherwise stable including enteric tube and right IJ central venous catheter. Persistent findings suggestive of pulmonary edema including small bilateral pleural effusions. Stable mild cardiomegaly. Aortic atherosclerotic calcification. MICRO * MICRO: All BCx (-) * 09/17/18 RESPIRATORY CX:RESPIRATORY CULTURE Final Organism 1 KLEBSIELLA OZAENAE QUANTITY SCANT GROWTH Organism 2 NORMAL RESPIRATORY TAMARA QUANTITY SCANT GROWTH KLEMaye HDZ M.I.C. RX --------- --- CEFAZOLIN R CEFOTAXIME S CIPROFLOXACIN <=0.25 S GENTAMICIN <=1 S LEVOFLOXACIN <=0.12 S TOBRAMYCIN <=1 S TRIMETHOPRIM/SULFAMETHOXAZOLE <=20 S PHYSICAL EXAMINATION: GENERAL: Afebrile, VSS HEENT: AT, NC, anicteric, moist oral membranes NECK: Supple, trach midline CHEST: Equal chest rise bilaterally, without dyspnea on observation HEART: Pulse RRR ABDOMEN: Soft EXTREMITIES: Warm, dry SKIN: No rash, no diaphoresis ID ASSESSMENT 63 yo F admit with: 1. Status post VFib cardiopulmonary arrest w/ROSC 2. s/p sepsis due to ASP Pneumonia in setting #1 => RESOLVED 3. s/p Respiratory failure requiring intubation/mechanical Vent => EXTUBATED ON 09/19/18 4. Resolving toxic metabolic encephalopathy 5. Fibromuscular dysplasia -seen on CT angio of the brain = asymptomatic for ischemia * Fibromuscular dysplasia throughout her body including the renal arteries * Aneurysm also seen on the CT angios of the brain likely 2/2 to fibromusclar dysplasia, partially calcified, likely not a surgical candidate due to calcification. 5. Resolving acute renal failure likely ATN 6. Anemia likely dilutional no evidence of acute GI bleed ABX ALLERGIES: NKDA INVASIVES: PIV CURRENT ABX: DAY #= OFF ABX s/p Vanco IV ID RECOMMENDATIONS/PLAN: Continue to monitor OFF ABX * Currently asymptomatic -- tells me pacemaker implant pending next week * Spoke with both Dr. Nair who recommends patient may proceed to pacemaker implant with pre-procedure ABX coverage per Cardiology -- and Jia Pink NP given update . Result Diagram: 09/21/18 1107 09/21/18 110 Consultation Date/Type/Reason Admit Date/Time Sep 09, 2018 at 16:10 Initial Consult Date 09/10/18 Requesting Provider: OZZIE ALVAREZ MD Exam/Review of Systems Vital Signs Vitals Vital Signs Date Temp Pulse Resp B/P (MAP) Pulse Ox O2 O2 Flow FiO2 Time Delivery Rate 09/22/18 91/55 (67) 12:07 09/22/18 97.9 75 16 98 Nasal 12:04 Cannula 09/22/18 2.0 08:20 09/18/18 40 10:40 Intake and Output 09/21/18 09/21/18 09/22/18 1515:00 23:00 07:00 IntakeIntake Total 500 ml 480 ml OutputOutput Total 1700 ml 500 ml BalanceBalance -1200 ml -20 ml Medications Medications Current Medications Acetaminophen (Tylenol Liquid) 650 mg Q6H PRN NGT PAIN LEVEL 1-3 OR FEVER Last administered on 09/20/18at 08:39; Admin Dose 650 MG; Start 09/09/18 at 16:30 Morphine Sulfate (morphine) 2 mg Q4H PRN IV PAIN LEVEL 7-10 Last administered on 09/13/18at 10:11; Admin Dose 2 MG; Start 09/09/18 at 16:30 Pantoprazole (Protonix Iv) 40 mg DAILY@06 IV Last administered on 09/22/18at 06:12; Admin Dose 40 MG; Start 09/10/18 at 06:00 Miscellaneous Information 1 ea NOTE XX ; Start 09/12/18 at 04:30 Glucose (Glutose) 15 gm Q15M PRN PO DECREASED GLUCOSE; Start 09/12/18 at 04:30 Glucose (Glutose) 22.5 gm Q15M PRN PO DECREASED GLUCOSE; Start 09/12/18 at 04:30 Dextrose (D50w Syringe) 25 ml Q15M PRN IV DECREASED GLUCOSE; Start 09/12/18 at 04:30 Dextrose (D50w Syringe) 50 ml Q15M PRN IV DECREASED GLUCOSE; Start 09/12/18 at 04:30 Glucagon (Glucagen) 1 mg Q15M PRN IM DECREASED GLUCOSE; Start 09/12/18 at 04:30 Glucose (Glutose) 15 gm Q15M PRN BUCCAL DECREASED GLUCOSE; Start 09/12/18 at 04:30 Furosemide (Lasix) 20 mg DAILY@0600 IV Last administered on 09/22/18at 06:12; Admin Dose 20 MG; Start 09/14/18 at 06:00 Aspirin (Aspirin) 81 mg DAILY NGT Last administered on 09/22/18at 10:01; Admin Dose 81 MG; Start 09/14/18 at 09:30 Hydralazine HCl (Apresoline) 10 mg Q4H PRN IV SBP ABOVE 160 Last administered on 09/22/18at 06:48; Admin Dose 10 MG; Start 09/14/18 at 12:00 Budesonide (Pulmicort (Neb)) 0.5 mg BID RESP THERAPY HHN Last administered on 09/21/18at 20:33; Admin Dose 0.5 MG; Start 09/16/18 at 20:00 Hydralazine HCl (Apresoline) 25 mg Q6 PO Last administered on 09/22/18at 06:12; Admin Dose 25 MG; Start 09/17/18 at 12:00 Isosorbide Dinitrate (Isordil) 20 mg TID NGT Last administered on 09/22/18at 10:01; Admin Dose 20 MG; Start 09/17/18 at 10:00 Albuterol/ Ipratropium (Duoneb) 3 ml Q6H RESP THERAPY HHN Last administered on 09/22/18at 02:18; Admin Dose 3 ML; Start 09/18/18 at 20:00 Labetalol HCl (Labetalol) 10 mg Q4H PRN IV sbp>160 Last administered on 09/18/18 16:03; Admin Dose 10 MG; Start 09/18/18 at 14:30 Haloperidol (Haldol) 5 mg Q8 PRN IM agitation; Start 09/18/18 at 16:00 Lisinopril (Zestril) 20 mg BID NGT Last administered on 09/22/18 10:01; Admin Dose 20 MG; Start 09/19/18 at 09:00 Acetaminophen/ Hydrocodone Bitart ([place] (5/325)) 1 tab Q4H PRN PO MODERATE PAIN LEVEL 4-6 Last administered on 09/19/18at 23:17; Admin Dose 1 TAB; Start 09/19/18 at 15:00 Carvedilol (Coreg) 25 mg BID PO Last administered on 09/22/18 10:01; Admin Dose 25 MG; Start 09/20/18 at 21:00 Spironolactone (Aldactone) 50 mg DAILY NGT Last administered on 09/22/18 10:01; Admin Dose 50 MG; Start 09/21/18 at 09:00 KEZIA MOBLEY NP Sep 22, 2018 12:29
--- NOTE | 2018-09-22 14:10 | CONS ---
Date/Time of Note Date/Time of Note DATE: 09/22/18 TIME: 14:09 Consult Date/Type/Reason Admit Date/Time Sep 09, 2018 at 16:10 Initial Consult Date 09/10/18 Type of Consultation: Pulm Requesting Provider: OZZIE ALVAREZ MD Subjective No events. No complaints, doing well. Objective Vital Signs Date Temp Pulse Resp B/P (MAP) Pulse Ox O2 O2 Flow FiO2 Time Delivery Rate 09/22/18 91/55 (67) 12:07 09/22/18 97.9 75 16 98 Nasal 12:04 Cannula 09/22/18 2.0 08:20 09/18/18 40 10:40 Intake and Output 09/21/18 09/21/18 09/22/18 1515:00 23:00 07:00 IntakeIntake Total 500 ml 480 ml OutputOutput Total 1700 ml 500 ml BalanceBalance -1200 ml -20 ml Exam HEENT: Neck supple; no JVD; no LAD CVS: RRR, S1 and S2 CHEST: Clear ABD: Soft, NT, + BS EXT: No c/c/e Results/Medications Result Diagram: 09/21/18 1107 09/21/18 1107 Medications Current Medications Acetaminophen (Tylenol Liquid) 650 mg Q6H PRN NGT PAIN LEVEL 1-3 OR FEVER Last administered on 09/20/18at 08:39; Admin Dose 650 MG; Start 09/09/18 at 16:30 Morphine Sulfate (morphine) 2 mg Q4H PRN IV PAIN LEVEL 7-10 Last administered on 09/13/18at 10:11; Admin Dose 2 MG; Start 09/09/18 at 16:30 Pantoprazole (Protonix Iv) 40 mg DAILY@06 IV Last administered on 09/22/18at 06:12; Admin Dose 40 MG; Start 09/10/18 at 06:00 Miscellaneous Information 1 ea NOTE XX ; Start 09/12/18 at 04:30 Glucose (Glutose) 15 gm Q15M PRN PO DECREASED GLUCOSE; Start 09/12/18 at 04:30 Glucose (Glutose) 22.5 gm Q15M PRN PO DECREASED GLUCOSE; Start 09/12/18 at 04:30 Dextrose (D50w Syringe) 25 ml Q15M PRN IV DECREASED GLUCOSE; Start 09/12/18 at 04:30 Dextrose (D50w Syringe) 50 ml Q15M PRN IV DECREASED GLUCOSE; Start 09/12/18 at 04:30 Glucagon (Glucagen) 1 mg Q15M PRN IM DECREASED GLUCOSE; Start 09/12/18 at 04:30 Glucose (Glutose) 15 gm Q15M PRN BUCCAL DECREASED GLUCOSE; Start 09/12/18 at 04:30 Furosemide (Lasix) 20 mg DAILY@0600 IV Last administered on 09/22/18at 06:12; Admin Dose 20 MG; Start 09/14/18 at 06:00 Aspirin (Aspirin) 81 mg DAILY NGT Last administered on 09/22/18 10:01; Admin Dose 81 MG; Start 09/14/18 at 09:30 Hydralazine HCl (Apresoline) 10 mg Q4H PRN IV SBP ABOVE 160 Last administered on 09/22/18at 06:48; Admin Dose 10 MG; Start 09/14/18 at 12:00 Budesonide (Pulmicort (Neb)) 0.5 mg BID RESP THERAPY HHN Last administered on 09/21/18at 20:33; Admin Dose 0.5 MG; Start 09/16/18 at 20:00 Hydralazine HCl (Apresoline) 25 mg Q6 PO Last administered on 09/22/18 06:12; Admin Dose 25 MG; Start 09/17/18 at 12:00 Isosorbide Dinitrate (Isordil) 20 mg TID NGT Last administered on 09/22/18 10:01; Admin Dose 20 MG; Start 09/17/18 at 10:00 Albuterol/ Ipratropium (Duoneb) 3 ml Q6H RESP THERAPY HHN Last administered on 09/22/18at 02:18; Admin Dose 3 ML; Start 09/18/18 at 20:00 Labetalol HCl (Labetalol) 10 mg Q4H PRN IV sbp>160 Last administered on 09/18/18 16:03; Admin Dose 10 MG; Start 09/18/18 at 14:30 Haloperidol (Haldol) 5 mg Q8 PRN IM agitation; Start 09/18/18 at 16:00 Lisinopril (Zestril) 20 mg BID NGT Last administered on 09/22/18 10:01; Admin Dose 20 MG; Start 09/19/18 at 09:00 Acetaminophen/ Hydrocodone Bitart ([place] (5/325)) 1 tab Q4H PRN PO MODERATE PAIN LEVEL 4-6 Last administered on 09/19/18at 23:17; Admin Dose 1 TAB; Start 09/19/18 at 15:00 Carvedilol (Coreg) 25 mg BID PO Last administered on 09/22/18at 10:01; Admin Dose 25 MG; Start 09/20/18 at 21:00 Spironolactone (Aldactone) 50 mg DAILY NGT Last administered on 09/22/18at 10:01; Admin Dose 50 MG; Start 09/21/18 at 09:00 Assessment/Plan Additional Assessment/Plan IMP: 1. Status post cardiopulmonary arrest 2. Resolving toxic metabolic encephalopathy 3. Electrolyte abnormalities 4. Probable aspiration pneumonia 5. Resolving acute renal failure likely ATN 6. Anemia likely dilutional no evidence of acute GI bleed RECS: 1. Aspiration precautions 2. PT/OT 3. De-escalation of antibiotics 4. Replete K+ JUAN ANTONIO CASTILLO MD Sep 22, 2018 14:10
--- NOTE | 2018-09-22 14:59 | PN ---
Date/Time of Note Date/Time of Note DATE: 09/22/18 TIME: 14:59 Assessment/Plan VTE Prophylaxis Risk score (from Nsg)>0 risk: 2 SCD applied (from Nsg): Yes Pharmacological prophylaxis: heparin Lines/Catheters IV Catheter Type (from Nrsg): Saline Lock Urinary Cath still in place: Yes Reason Cath still needed: urinary retention Assessment/Plan Hospital Course Subjective Patient doing well, back to normal cognition Objective Physical exam General: Patient is laying in bed, responding normally Mentation: Patient is alert and oriented x4 Head: Normocephalic atraumatic Eyes: EOMI, pupils reactive to light Neck: Supple, nontender, midline Respiratory: Clear to auscultation bilaterally Cardiovascular: regular rate, no obvious murmurs Gastrointestinal: non-tender to palpation, bowel sounds heard. Neurological: Moves all extremities spontaneously Skin: No new skin lesions Assessment/Plan encephalopathy -resolved -likely due to extensive intubation period fibromuscular dysplasia -seen on CT angio of the brain -Also likely the underlying cause of patient's blood pressure issues as she likely has the effects of the fibromuscular dysplasia throughout her body including the renal arteries -Aneurysm also seen on the CT angios of the brain likely 2/2 to fibromusclar dysplasia, partially calcified, likely not a surgical candidate due to calcification however patient will likely need very close follow-up with a neurologist with repeated scans and possible further intervention if deemed necessary. Patient is currently not having any overt symptoms in regards to her renal function or any strokelike symptoms, stable Acute hypoxic respiratory failure 2/2 chf - Pulm on board and appreciate consultation - resolving Vfib Cardiac arrest with ROSC s/p hypothermia protocol - Cardiology on board and appreciate consultation. Will continue current beka tment with goal K >4 and Mg >2 - After being found down in Vfib arrest, patient underwent ACLS with 4 rounds of epi, Amiodarone x1, bicarb with ROSC. Patient noted with hypokalemia with K 2.1 at time of admission - ECHO reviewed and patient with poor EF 20%. - cardiac cath done 09/17/18, no significant stenosis, per cardiology will most likely need BIV ICD before discharge Septic shock secondary to aspiration pneumonia- improving - Off pressor support and will wean from vent as tolerated -finished abx - CXR results show slight progression of right pneumonia - Nebs PRN - Lactic acid normalized - ID consulted Transaminitis- improving - most likely secondary to hypoperfusion - trending down HTN Hypokalemia- improving - will continue replacing with goal >4 JULISSA- improving - Nephrology consultation appreciated. continue on lasix and off IVF Disposition -Patient is capitated to the [facility] health system, case management has been notified, discharge summary has been sent over to [facility], awaiting callback from [facility], as of right now AICD placement is scheduled for next Sunday with Dr. Graham, versus transfer to [facility], which ever comes first. Result Diagram: 09/21/18 1107 09/21/18 1107 Exam/Review of Systems Vital Signs Vitals Vital Signs Date Temp Pulse Resp B/P (MAP) Pulse Ox O2 O2 Flow FiO2 Time Delivery Rate 09/22/18 96 2.0 14:16 09/22/18 86 22 Nasal 14:16 Cannula 09/22/18 91/55 (67) 12:07 09/22/18 97.9 12:04 09/18/18 40 10:40 Intake and Output 09/21/18 09/21/18 09/22/18 1515:00 23:00 07:00 IntakeIntake Total 500 ml 480 ml OutputOutput Total 1700 ml 500 ml BalanceBalance -1200 ml -20 ml Medications Medications Current Medications Acetaminophen (Tylenol Liquid) 650 mg Q6H PRN NGT PAIN LEVEL 1-3 OR FEVER Last administered on 09/20/18at 08:39; Admin Dose 650 MG; Start 09/09/18 at 16:30 Morphine Sulfate (morphine) 2 mg Q4H PRN IV PAIN LEVEL 7-10 Last administered on 09/13/18at 10:11; Admin Dose 2 MG; Start 09/09/18 at 16:30 Pantoprazole (Protonix Iv) 40 mg DAILY@06 IV Last administered on 09/22/18at 06:12; Admin Dose 40 MG; Start 09/10/18 at 06:00 Miscellaneous Information 1 ea NOTE XX ; Start 09/12/18 at 04:30 Glucose (Glutose) 15 gm Q15M PRN PO DECREASED GLUCOSE; Start 09/12/18 at 04:30 Glucose (Glutose) 22.5 gm Q15M PRN PO DECREASED GLUCOSE; Start 09/12/18 at 04:30 Dextrose (D50w Syringe) 25 ml Q15M PRN IV DECREASED GLUCOSE; Start 09/12/18 at 04:30 Dextrose (D50w Syringe) 50 ml Q15M PRN IV DECREASED GLUCOSE; Start 09/12/18 at 04:30 Glucagon (Glucagen) 1 mg Q15M PRN IM DECREASED GLUCOSE; Start 09/12/18 at 04:30 Glucose (Glutose) 15 gm Q15M PRN BUCCAL DECREASED GLUCOSE; Start 09/12/18 at 04:30 Furosemide (Lasix) 20 mg DAILY@0600 IV Last administered on 09/22/18at 06:12; Admin Dose 20 MG; Start 09/14/18 at 06:00 Aspirin (Aspirin) 81 mg DAILY NGT Last administered on 09/22/18at 10:01; Admin Dose 81 MG; Start 09/14/18 at 09:30 Hydralazine HCl (Apresoline) 10 mg Q4H PRN IV SBP ABOVE 160 Last administered on 09/22/18at 06:48; Admin Dose 10 MG; Start 09/14/18 at 12:00 Budesonide (Pulmicort (Neb)) 0.5 mg BID RESP THERAPY HHN Last administered on 09/21/18at 20:33; Admin Dose 0.5 MG; Start 09/16/18 at 20:00 Hydralazine HCl (Apresoline) 25 mg Q6 PO Last administered on 09/22/18at 06:12; Admin Dose 25 MG; Start 09/17/18 at 12:00 Isosorbide Dinitrate (Isordil) 20 mg TID NGT Last administered on 09/22/18at 10:01; Admin Dose 20 MG; Start 09/17/18 at 10:00 Albuterol/ Ipratropium (Duoneb) 3 ml Q6H RESP THERAPY HHN Last administered on 09/22/18at 14:15; Admin Dose 3 ML; Start 09/18/18 at 20:00 Labetalol HCl (Labetalol) 10 mg Q4H PRN IV sbp>160 Last administered on 09/18/18at 16:03; Admin Dose 10 MG; Start 09/18/18 at 14:30 Haloperidol (Haldol) 5 mg Q8 PRN IM agitation; Start 09/18/18 at 16:00 Lisinopril (Zestril) 20 mg BID NGT Last administered on 09/22/18 10:01; Admin Dose 20 MG; Start 09/19/18 at 09:00 Acetaminophen/ Hydrocodone Bitart ([place] (5/325)) 1 tab Q4H PRN PO MODERATE PAIN LEVEL 4-6 Last administered on 09/19/18 23:17; Admin Dose 1 TAB; Start 09/19/18 at 15:00 Carvedilol (Coreg) 25 mg BID PO Last administered on 09/22/18 10:01; Admin Dose 25 MG; Start 09/20/18 at 21:00 Spironolactone (Aldactone) 50 mg DAILY NGT Last administered on 09/22/18 10:01; Admin Dose 50 MG; Start 09/21/18 at 09:00 ZAMZAM VILLANUEVA MD Sep 22, 2018 14:59
--- NOTE | 2018-09-22 15:26 | NUR ---
Transfer Follow Up; Still awaiting [place] availability [place] [facility] [place] [facility] [place] [place] Followed up with [facility] phone number , covering [facility] Services during weekend and still in search for an accepting MD. Please follow up tomorrow to provide them the new covering Hospitalist for the week.
--- NOTE | 2018-09-22 16:40 | PN ---
Date/Time of Note Date/Time of Note DATE: 09/22/18 TIME: 16:32 Assessment/Plan VTE Prophylaxis Risk score (from Nsg)>0 risk: 2 SCD applied (from Nsg): Yes Pharmacological prophylaxis: other (see primary note) Lines/Catheters IV Catheter Type (from Nrsg): Saline Lock Urinary Cath still in place: Yes Reason Cath still needed: other (indicate) (is being removed) Assessment/Plan Hospital Course 63 yo with cardiomyopathy who sustained a cardiac arrest from which she was resuscitated. Assessment/Plan Impression: Status post VF/VT cardiopulmonary arrest Right lung infiltrate consistent with pneumonia possible aspiration pneumonia Encephalopathy, improved Severe hypokalemia: corrected Elevated troponin due to cardiac arrest, with normal coronaries on cath Cardiomyopathy Hypertension with hypertensive heart disease, with transient hypotension today Cardiomyopathy, improved Recommendations: Keep electrolytes stable, K>4, Mg>2 Continue bp/HF meds, and observe BP ICD placement as per Dr. Graham, either at this hospital or at an outside f acility Result Diagram: 09/21/18 1107 09/22/18 1428 Results 24hrs Laboratory Tests Test 09/22/18 14:28 Sodium Level 139 Potassium Level 4.1 Chloride Level 101 Carbon Dioxide Level 28 Anion Gap 10 Blood Urea Nitrogen 22 H Creatinine 1.21 H Est Glomerular Filtrat Rate mL/min 54 L Glucose Level 155 Calcium Level 9.1 Subjective 24 Hr Interval Summary Free Text/Dictation Patient sitting up in bed, daughter at bedside. Patient feels well, denies pain, dyspnea, able to walk to bathroom with assistance so would like her urinary catheter discontinued. Exam/Review of Systems Vital Signs Vitals Vital Signs Date Temp Pulse Resp B/P (MAP) Pulse Ox O2 O2 Flow FiO2 Time Delivery Rate 09/22/18 77 16:07 09/22/18 98.4 16 136/77 100 Nasal 16:04 (96) Cannula 09/22/18 2.0 14:16 09/18/18 40 10:40 Intake and Output 09/21/18 09/21/18 09/22/18 1515:00 23:00 07:00 IntakeIntake Total 500 ml 480 ml OutputOutput Total 1700 ml 500 ml BalanceBalance -1200 ml -20 ml Exam Constitutional: alert, oriented, well developed Psych: no complaints, nl mood/affect Head: normocephalic, atraumatic Eyes: nl conjunctiva, EOMI, nl lids, nl sclera ENMT: nl external ears & nose, nl lips & teeth Neck: supple; No jvd, No bruits Respiratory: clear to auscultation, normal air movement Cardiovascular: regular rate and rhythm; No murmurs/extra sounds Gastrointestinal: soft, nl liver, spleen, non-tender Musculoskeletal: nl extremities to inspection Extremities: normal pulses; No edema Neurological: nl mental status, nl speech Skin: nl turgor; No rash or lesions Medications Medications Current Medications Acetaminophen (Tylenol Liquid) 650 mg Q6H PRN NGT PAIN LEVEL 1-3 OR FEVER Last administered on 09/20/18at 08:39; Admin Dose 650 MG; Start 09/09/18 at 16:30 Morphine Sulfate (morphine) 2 mg Q4H PRN IV PAIN LEVEL 7-10 Last administered on 09/13/18at 10:11; Admin Dose 2 MG; Start 09/09/18 at 16:30 Pantoprazole (Protonix Iv) 40 mg DAILY@06 IV Last administered on 09/22/18at 06:12; Admin Dose 40 MG; Start 09/10/18 at 06:00 Miscellaneous Information 1 ea NOTE XX ; Start 09/12/18 at 04:30 Glucose (Glutose) 15 gm Q15M PRN PO DECREASED GLUCOSE; Start 09/12/18 at 04:30 Glucose (Glutose) 22.5 gm Q15M PRN PO DECREASED GLUCOSE; Start 09/12/18 at 04:30 Dextrose (D50w Syringe) 25 ml Q15M PRN IV DECREASED GLUCOSE; Start 09/12/18 at 04:30 Dextrose (D50w Syringe) 50 ml Q15M PRN IV DECREASED GLUCOSE; Start 09/12/18 at 04:30 Glucagon (Glucagen) 1 mg Q15M PRN IM DECREASED GLUCOSE; Start 09/12/18 at 04:30 Glucose (Glutose) 15 gm Q15M PRN BUCCAL DECREASED GLUCOSE; Start 09/12/18 at 04:30 Furosemide (Lasix) 20 mg DAILY@0600 IV Last administered on 09/22/18at 06:12; Admin Dose 20 MG; Start 09/14/18 at 06:00 Aspirin (Aspirin) 81 mg DAILY NGT Last administered on 09/22/18at 10:01; Admin Dose 81 MG; Start 09/14/18 at 09:30 Budesonide (Pulmicort (Neb)) 0.5 mg BID RESP THERAPY HHN Last administered on 09/21/18 20:33; Admin Dose 0.5 MG; Start 09/16/18 at 20:00 Hydralazine HCl (Apresoline) 25 mg Q6 PO Last administered on 09/22/18 06:12; Admin Dose 25 MG; Start 09/17/18 at 12:00 Isosorbide Dinitrate (Isordil) 20 mg TID NGT Last administered on 09/22/18 10:01; Admin Dose 20 MG; Start 09/17/18 at 10:00 Albuterol/ Ipratropium (Duoneb) 3 ml Q6H RESP THERAPY HHN Last administered on 09/22/18 14:15; Admin Dose 3 ML; Start 09/18/18 at 20:00 Labetalol HCl (Labetalol) 10 mg Q4H PRN IV sbp>160 Last administered on 09/18/18 16:03; Admin Dose 10 MG; Start 09/18/18 at 14:30 Haloperidol (Haldol) 5 mg Q8 PRN IM agitation; Start 09/18/18 at 16:00 Lisinopril (Zestril) 20 mg BID NGT Last administered on 09/22/18 10:01; Admin Dose 20 MG; Start 09/19/18 at 09:00 Acetaminophen/ Hydrocodone Bitart ([place] (5/325)) 1 tab Q4H PRN PO MODERATE PAIN LEVEL 4-6 Last administered on 09/19/18 23:17; Admin Dose 1 TAB; Start 09/19/18 at 15:00 Carvedilol (Coreg) 25 mg BID PO Last administered on 09/22/18 10:01; Admin Dose 25 MG; Start 09/20/18 at 21:00 Spironolactone (Aldactone) 50 mg DAILY NGT Last administered on 09/22/18 10:01; Admin Dose 50 MG; Start 09/21/18 at 09:00 EMI MONROY Sep 22, 2018 16:40
--- NOTE | 2018-09-22 18:28 | NUR ---
EOSS: Patient's V/S stable, denies any pain/discomfort at this time. Dave catheter removed & discontinued completely, tolerated well. All needs attended well. Continued monitoring per plan of care.
[2018-09-23] VITALS (9 sets, daily range): BP systolic 103–156; BP diastolic 53–86; PULSE 70–91; RESP 18–19
[2018-09-23] MEDS: ALBUTEROL/IPRATROPIUM (NEB) 3 ML AMP HHN SCH ×4 (01:52→20:24)
[2018-09-23] MEDS: PANTOPRAZOLE 40 MG INJ IV SCH (05:42)
[2018-09-23] MEDS: FUROSEMIDE 20 MG INJ IV SCH (05:43)
--- NOTE | 2018-09-23 06:43 | NUR ---
end of shift: patient is alert and oriented, sinus rhythm on monitor; denies chest pain nor discomfort, ambulates with assist to the bathroom with some unsteadiness, will follow-up physical therapy; bedside commode in place, had spontaneous voiding after sahni catheter discontinued; needs attended; will endorse to dayshift nurse
[2018-09-23] MEDS: ASPIRIN 81 MG TAB NGT SCH (08:35)
[2018-09-23] MEDS: SPIRONOLACTONE 50 MG TAB NGT SCH (08:35)
[2018-09-23] MEDS: ISOSORBIDE DINITRATE 20 MG TAB NGT SCH ×3 (08:35→21:15)
[2018-09-23] MEDS: LISINOPRIL 20 MG TAB NGT SCH ×2 (08:36→21:14)
--- NOTE | 2018-09-23 09:14 | PN ---
Date/Time of Note Date/Time of Note DATE: 09/23/18 TIME: 09:14 Assessment/Plan VTE Prophylaxis Risk score (from Nsg)>0 risk: 4 SCD applied (from Ns): Yes Pharmacological prophylaxis: heparin Lines/Catheters IV Catheter Type (from Nrsg): Saline Lock Urinary Cath still in place: No Reason Cath still needed: skin wounds contaminated by urine Assessment/Plan Assessment/Plan 1. Acute encephalopathy - resolved and back to baseline 2. Fibromuscular dysplasia- stable - seen on CT angio of the brain - Also likely the underlying cause of patient's blood pressure issues as she likely has the effects of the fibromuscular dysplasia throughout her body including the renal arteries - Aneurysm also seen on the CT angios of the brain likely 2/2 to fibromusclar dysplasia, partially calcified, likely not a surgical candidate due to calcification however patient will likely need very close follow-up with a neurologist with repeated scans and possible further intervention if deemed necessary 3. Vfib Cardiac arrest with ROSC s/p hypothermia protocol - Cardiology on board and appreciate consultation. Will continue current treatment with goal K >4 and Mg >2 - After being found down in Vfib arrest, patient underwent ACLS with 4 rounds of epi, Amiodarone x1, bicarb with ROSC. Patient noted with hypokalemia with K 2.1 at time of admission - ECHO reviewed and patient with poor EF 20% at time of admission. Repeat ECHO showed improvement to 50% - cardiac cath done 09/17/18, no significant stenosis - Plans for AICD placement Sunday if still inhouse 4. Acute hypoxic respiratory failure- resolving - No acute respiratory issues appreciated - Pulm on board and appreciate consultation - wean O2 as tolerated 5. Septic shock secondary to aspiration pneumonia- improving - Completed course of antibiotics - remains afebrile with normal WBC 6. Transaminitis- resolved - most likely secondary to hypoperfusion 7. HTN - stable 8. Hypokalemia- resolved 9. JULISSA- improving - Nephrology consultation appreciated. continue on lasix 10. Disposition - Pending transfer to [facility] given capitated to their [facility] system. CM on board. - Plans for AICD on Sunday if still inhouse Result Diagram: 09/23/18 0539 09/23/18 0539 Results 24hrs Laboratory Tests Test 09/22/18 14:28 09/23/18 05:39 Sodium Level 139 140 Potassium Level 4.1 4.0 Chloride Level 101 103 Carbon Dioxide Level 28 28 Anion Gap 10 9 Blood Urea Nitrogen 22 H 21 H Creatinine 1.21 H 1.06 H Est Glomerular Filtrat Rate mL/min 54 L > 60 Glucose Level 155 111 # Calcium Level 9.1 9.3 White Blood Count 8.4 Red Blood Count 3.80 L Hemoglobin 11.4 L Hematocrit 35.2 L Mean Corpuscular Volume 92.6 Mean Corpuscular Hemoglobin 30.0 Mean Corpuscular Hemoglobin Concent 32.4 Red Cell Distribution Width 14.2 Platelet Count 413 Mean Platelet Volume 10.4 Immature Granulocytes % 1.100 H Neutrophils % 75.5 Lymphocytes % 12.3 L Monocytes % 8.5 Eosinophils % 1.9 Basophils % 0.7 Nucleated Red Blood Cells % 0.0 Immature Granulocytes # 0.090 H Neutrophils # 6.4 Lymphocytes # 1.0 Monocytes # 0.7 Eosinophils # 0.2 Basophils # 0.1 Nucleated Red Blood Cells # 0.0 Subjective 24 Hr Interval Summary Free Text/Dictation Patient states she's feeling great this am. When discussed events leading up to cardiac arrest, patient admits to working out at [employer] and spent time in the [place], and pool without hydrating well. She remembers getting out of her car and passing out on the curb. No acute overnight events. Exam/Review of Systems Vital Signs Vitals Vital Signs Date Temp Pulse Resp B/P (MAP) Pulse Ox O2 O2 Flow FiO2 Time Delivery Rate 09/23/18 Nasal 2.0 08:31 Cannula 09/23/18 91 08:10 09/23/18 98.1 18 156/86 97 07:24 (109) Intake and Output 09/22/18 09/22/18 09/23/18 1515:00 23:00 07:00 IntakeIntake Total 750 ml 700 ml OutputOutput Total 1200 ml BalanceBalance -450 ml 700 ml Exam General: Patient is laying in bed, no acute distress. answering questions appropriately Mentation: Patient is alert and oriented x4 Neck: Supple, nontender, midline Respiratory: Clear to auscultation bilaterally. no wheezing or rhonchi Cardiovascular: regular rate and rhythm, no obvious murmurs Gastrointestinal: soft, non-tender to palpation, nondistended, bowel sounds heard. Neurological: Moves all extremities spontaneously Skin: No new skin lesions Medications Medications Current Medications Acetaminophen (Tylenol Liquid) 650 mg Q6H PRN NGT PAIN LEVEL 1-3 OR FEVER Last administered on 09/20/18at 08:39; Admin Dose 650 MG; Start 09/09/18 at 16:30 Morphine Sulfate (morphine) 2 mg Q4H PRN IV PAIN LEVEL 7-10 Last administered on 09/13/18at 10:11; Admin Dose 2 MG; Start 09/09/18 at 16:30 Pantoprazole (Protonix Iv) 40 mg DAILY@06 IV Last administered on 09/23/18at 05:42; Admin Dose 40 MG; Start 09/10/18 at 06:00 Miscellaneous Information 1 ea NOTE XX ; Start 09/12/18 at 04:30 Glucose (Glutose) 15 gm Q15M PRN PO DECREASED GLUCOSE; Start 09/12/18 at 04:30 Glucose (Glutose) 22.5 gm Q15M PRN PO DECREASED GLUCOSE; Start 09/12/18 at 04:30 Dextrose (D50w Syringe) 25 ml Q15M PRN IV DECREASED GLUCOSE; Start 09/12/18 at 04:30 Dextrose (D50w Syringe) 50 ml Q15M PRN IV DECREASED GLUCOSE; Start 09/12/18 at 04:30 Glucagon (Glucagen) 1 mg Q15M PRN IM DECREASED GLUCOSE; Start 09/12/18 at 04:30 Glucose (Glutose) 15 gm Q15M PRN BUCCAL DECREASED GLUCOSE; Start 09/12/18 at 04:30 Furosemide (Lasix) 20 mg DAILY@0600 IV Last administered on 09/23/18at 05:43; Admin Dose 20 MG; Start 09/14/18 at 06:00 Aspirin (Aspirin) 81 mg DAILY NGT Last administered on 09/23/18at 08:35; Admin Dose 81 MG; Start 09/14/18 at 09:30 Budesonide (Pulmicort (Neb)) 0.5 mg BID RESP THERAPY HHN Last administered on 09/22/18at 20:23; Admin Dose 0.5 MG; Start 09/16/18 at 20:00 Hydralazine HCl (Apresoline) 25 mg Q6 PO Last administered on 09/23/18at 05:43; Admin Dose 25 MG; Start 09/17/18 at 12:00 Isosorbide Dinitrate (Isordil) 20 mg TID NGT Last administered on 09/23/18 08:35; Admin Dose 20 MG; Start 09/17/18 at 10:00 Albuterol/ Ipratropium (Duoneb) 3 ml Q6H RESP THERAPY HHN Last administered on 09/23/18 01:52; Admin Dose 3 ML; Start 09/18/18 at 20:00 Labetalol HCl (Labetalol) 10 mg Q4H PRN IV sbp>160 Last administered on 09/18/18 16:03; Admin Dose 10 MG; Start 09/18/18 at 14:30 Haloperidol (Haldol) 5 mg Q8 PRN IM agitation; Start 09/18/18 at 16:00 Lisinopril (Zestril) 20 mg BID NGT Last administered on 09/23/18 08:36; Admin Dose 20 MG; Start 09/19/18 at 09:00 Acetaminophen/ Hydrocodone Bitart ([place] (5/325)) 1 tab Q4H PRN PO MODERATE PAIN LEVEL 4-6 Last administered on 09/19/18 23:17; Admin Dose 1 TAB; Start 09/19/18 at 15:00 Carvedilol (Coreg) 25 mg BID PO Last administered on 09/23/18 08:36; Admin Dose 25 MG; Start 09/20/18 at 21:00 Spironolactone (Aldactone) 50 mg DAILY NGT Last administered on 09/23/18 08:35; Admin Dose 50 MG; Start 09/21/18 at 09:00 OZZIE ALVAREZ MD Sep 23, 2018 09:14
[2018-09-23] MEDS: BUDESONIDE (NEB) 0.5MG/2ML AMP HHN SCH ×2 (09:27→20:24)
--- NOTE | 2018-09-23 11:55 | CONS ---
Date/Time of Note Date/Time of Note DATE: 09/23/18 TIME: 11:52 Assessment/Plan Assessment/Plan Hospital Course ID INITIAL NOTE CURRENT ABX: DAY #= OFF ABX s/p Vanco IV 09/23/18 0539 09/23/18 0539 24H INTERVAL SUMMARY * Clinically w/remarkable recovery -- A/A/O -- No fevers, VSS, no cough, taking POx without difficulty, still on supplemental O2 via NC * Asymptomatic -- plan is for pacemaker implant this week * 09/19/18 CXR: IMPRESSION: Interval removal of endotracheal tube. Otherwise stable including enteric tube and right IJ central venous catheter. Persistent findings suggestive of pulmonary edema including small bilateral pleural effusions. Stable mild cardiomegaly. Aortic atherosclerotic calcification. MICRO * MICRO: All BCx (-) * 09/17/18 RESPIRATORY CX:RESPIRATORY CULTURE Final Organism 1 KLEBSIELLA OZAENAE QUANTITY SCANT GROWTH Organism 2 NORMAL RESPIRATORY TAMARA QUANTITY SCANT GROWTH KLEB OZAEN M.I.C. RX --------- --- CEFAZOLIN R CEFOTAXIME S CIPROFLOXACIN <=0.25 S GENTAMICIN <=1 S LEVOFLOXACIN <=0.12 S TOBRAMYCIN <=1 S TRIMETHOPRIM/SULFAMETHOXAZOLE <=20 S PHYSICAL EXAMINATION: GENERAL: Afebrile, VSS HEENT: AT, NC, anicteric, moist oral membranes NECK: Supple, trach midline CHEST: Equal chest rise bilaterally, without dyspnea on observation HEART: Pulse RRR ABDOMEN: Soft EXTREMITIES: Warm, dry SKIN: No rash, no diaphoresis ID ASSESSMENT 63 yo F admit with: 1. Status post VFib cardiopulmonary arrest w/ROSC 2. s/p sepsis due to ASP Pneumonia in setting #1 => RESOLVED 3. s/p Respiratory failure requiring intubation/mechanical Vent => EXTUBATED ON 09/19/18 4. Resolving toxic metabolic encephalopathy 5. Fibromuscular dysplasia -seen on CT angio of the brain = asymptomatic for ischemia * Fibromuscular dysplasia throughout her body including the renal arteries * Aneurysm also seen on the CT angios of the brain likely 2/2 to fibromusclar dysplasia, partially calcified, likely not a surgical candidate due to calcification. 5. Resolving acute renal failure likely ATN 6. Anemia likely dilutional no evidence of acute GI bleed (-)MRSA nares screen ABX ALLERGIES: NKDA INVASIVES: PIV CURRENT ABX: DAY #= OFF ABX s/p Vanco IV ID RECOMMENDATIONS/PLAN: Continue to monitor OFF ABX * Currently asymptomatic -- may proceed to pacemaker implant * May DC OFF ABX when cleared by primary . Result Diagram: 09/23/18 0539 09/23/1839 Results 24hrs Laboratory Tests Test 09/22/18 14:28 09/23/18 05:39 Sodium Level 139 140 Potassium Level 4.1 4.0 Chloride Level 101 103 Carbon Dioxide Level 28 28 Anion Gap 10 9 Blood Urea Nitrogen 22 H 21 H Creatinine 1.21 H 1.06 H Est Glomerular Filtrat Rate mL/min 54 L > 60 Glucose Level 155 111 # Calcium Level 9.1 9.3 White Blood Count 8.4 Red Blood Count 3.80 L Hemoglobin 11.4 L Hematocrit 35.2 L Mean Corpuscular Volume 92.6 Mean Corpuscular Hemoglobin 30.0 Mean Corpuscular Hemoglobin Concent 32.4 Red Cell Distribution Width 14.2 Platelet Count 413 Mean Platelet Volume 10.4 Immature Granulocytes % 1.100 H Neutrophils % 75.5 Lymphocytes % 12.3 L Monocytes % 8.5 Eosinophils % 1.9 Basophils % 0.7 Nucleated Red Blood Cells % 0.0 Immature Granulocytes # 0.090 H Neutrophils # 6.4 Lymphocytes # 1.0 Monocytes # 0.7 Eosinophils # 0.2 Basophils # 0.1 Nucleated Red Blood Cells # 0.0 Consultation Date/Type/Reason Admit Date/Time Sep 09, 2018 at 16:10 Initial Consult Date 09/10/18 Requesting Provider: OZZIE ALVAREZ MD Exam/Review of Systems Vital Signs Vitals Vital Signs Date Temp Pulse Resp B/P (MAP) Pulse Ox O2 O2 Flow FiO2 Time Delivery Rate 09/23/18 92 18 93 Nasal 2.0 09:18 Cannula 09/23/18 98.1 156/86 07:24 (109) Intake and Output 09/22/18 09/22/18 09/23/18 1515:00 23:00 07:00 IntakeIntake Total 750 ml 700 ml OutputOutput Total 1200 ml BalanceBalance -450 ml 700 ml Medications Medications Current Medications Acetaminophen (Tylenol Liquid) 650 mg Q6H PRN NGT PAIN LEVEL 1-3 OR FEVER Last administered on 09/20/18at 08:39; Admin Dose 650 MG; Start 09/09/18 at 16:30 Morphine Sulfate (morphine) 2 mg Q4H PRN IV PAIN LEVEL 7-10 Last administered on 09/13/18at 10:11; Admin Dose 2 MG; Start 09/09/18 at 16:30 Pantoprazole (Protonix Iv) 40 mg DAILY@06 IV Last administered on 09/23/18at 05:42; Admin Dose 40 MG; Start 09/10/18 at 06:00 Miscellaneous Information 1 ea NOTE XX ; Start 09/12/18 at 04:30 Glucose (Glutose) 15 gm Q15M PRN PO DECREASED GLUCOSE; Start 09/12/18 at 04:30 Glucose (Glutose) 22.5 gm Q15M PRN PO DECREASED GLUCOSE; Start 09/12/18 at 04:30 Dextrose (D50w Syringe) 25 ml Q15M PRN IV DECREASED GLUCOSE; Start 09/12/18 at 04:30 Dextrose (D50w Syringe) 50 ml Q15M PRN IV DECREASED GLUCOSE; Start 09/12/18 at 04:30 Glucagon (Glucagen) 1 mg Q15M PRN IM DECREASED GLUCOSE; Start 09/12/18 at 04:30 Glucose (Glutose) 15 gm Q15M PRN BUCCAL DECREASED GLUCOSE; Start 09/12/18 at 04:30 Furosemide (Lasix) 20 mg DAILY@0600 IV Last administered on 09/23/18at 05:43; Admin Dose 20 MG; Start 09/14/18 at 06:00 Aspirin (Aspirin) 81 mg DAILY NGT Last administered on 09/23/18at 08:35; Admin Dose 81 MG; Start 09/14/18 at 09:30 Budesonide (Pulmicort (Neb)) 0.5 mg BID RESP THERAPY HHN Last administered on 09/23/18at 09:27; Admin Dose 0.5 MG; Start 09/16/18 at 20:00 Hydralazine HCl (Apresoline) 25 mg Q6 PO Last administered on 09/23/18at 05:43; Admin Dose 25 MG; Start 09/17/18 at 12:00 Isosorbide Dinitrate (Isordil) 20 mg TID NGT Last administered on 09/23/18 08:35; Admin Dose 20 MG; Start 09/17/18 at 10:00 Albuterol/ Ipratropium (Duoneb) 3 ml Q6H RESP THERAPY HHN Last administered on 09/23/18 09:15; Admin Dose 3 ML; Start 09/18/18 at 20:00 Labetalol HCl (Labetalol) 10 mg Q4H PRN IV sbp>160 Last administered on 09/18/18 16:03; Admin Dose 10 MG; Start 09/18/18 at 14:30 Haloperidol (Haldol) 5 mg Q8 PRN IM agitation; Start 09/18/18 at 16:00 Lisinopril (Zestril) 20 mg BID NGT Last administered on 09/23/18 08:36; Admin Dose 20 MG; Start 09/19/18 at 09:00 Acetaminophen/ Hydrocodone Bitart ([place] (5/325)) 1 tab Q4H PRN PO MODERATE PAIN LEVEL 4-6 Last administered on 09/19/18 23:17; Admin Dose 1 TAB; Start 09/19/18 at 15:00 Carvedilol (Coreg) 25 mg BID PO Last administered on 09/23/18 08:36; Admin Dose 25 MG; Start 09/20/18 at 21:00 Spironolactone (Aldactone) 50 mg DAILY NGT Last administered on 09/23/18 08:35; Admin Dose 50 MG; Start 09/21/18 at 09:00 KEZIA MOBLEY NP Sep 23, 2018 11:55
--- NOTE | 2018-09-23 12:08 | CONS ---
Date/Time of Note Date/Time of Note DATE: 09/23/18 TIME: 12:07 Consult Date/Type/Reason Admit Date/Time Sep 09, 2018 at 16:10 Initial Consult Date 09/10/18 Type of Consultation: Pulm Requesting Provider: OZZIE ALVAREZ MD Subjective Patient comfortable this morning awake alert oriented pending AICD placement Objective Vital Signs Date Temp Pulse Resp B/P (MAP) Pulse Ox O2 O2 Flow FiO2 Time Delivery Rate 09/23/18 98.2 76 18 103/53 97 11:53 (70) 09/23/18 Nasal 2.0 09:18 Cannula Intake and Output 09/22/18 09/22/18 09/23/18 1414:59 22:59 06:59 IntakeIntake Total 750 ml 700 ml OutputOutput Total 1200 ml BalanceBalance -450 ml 700 ml Exam GENERAL: VITAL SIGNS: per chart NECK: Supple. No JVD or lymphadenopathy. CARDIAC EXAM: S1, S2. No added sounds or murmurs. CHEST: clear bilaterally, No added sounds, rales or wheezes ABDOMEN: Soft, nontender. No guarding or rebound. EXTREMITIES: No cyanosis, clubbing or edema. NEUROLOGIC: Generalized weakness. No focal deficits. Results/Medications Result Diagram: 09/23/18 0539 09/23/18 0539 Results 24 hrs Laboratory Tests Test 09/22/18 14:28 09/23/18 05:39 Sodium Level 139 140 Potassium Level 4.1 4.0 Chloride Level 101 103 Carbon Dioxide Level 28 28 Anion Gap 10 9 Blood Urea Nitrogen 22 H 21 H Creatinine 1.21 H 1.06 H Est Glomerular Filtrat Rate mL/min 54 L > 60 Glucose Level 155 111 # Calcium Level 9.1 9.3 White Blood Count 8.4 Red Blood Count 3.80 L Hemoglobin 11.4 L Hematocrit 35.2 L Mean Corpuscular Volume 92.6 Mean Corpuscular Hemoglobin 30.0 Mean Corpuscular Hemoglobin Concent 32.4 Red Cell Distribution Width 14.2 Platelet Count 413 Mean Platelet Volume 10.4 Immature Granulocytes % 1.100 H Neutrophils % 75.5 Lymphocytes % 12.3 L Monocytes % 8.5 Eosinophils % 1.9 Basophils % 0.7 Nucleated Red Blood Cells % 0.0 Immature Granulocytes # 0.090 H Neutrophils # 6.4 Lymphocytes # 1.0 Monocytes # 0.7 Eosinophils # 0.2 Basophils # 0.1 Nucleated Red Blood Cells # 0.0 Medications Current Medications Acetaminophen (Tylenol Liquid) 650 mg Q6H PRN NGT PAIN LEVEL 1-3 OR FEVER Last administered on 09/20/18at 08:39; Admin Dose 650 MG; Start 09/09/18 at 16:30 Morphine Sulfate (morphine) 2 mg Q4H PRN IV PAIN LEVEL 7-10 Last administered on 09/13/18at 10:11; Admin Dose 2 MG; Start 09/09/18 at 16:30 Pantoprazole (Protonix Iv) 40 mg DAILY@06 IV Last administered on 09/23/18at 05:42; Admin Dose 40 MG; Start 09/10/18 at 06:00 Miscellaneous Information 1 ea NOTE XX ; Start 09/12/18 at 04:30 Glucose (Glutose) 15 gm Q15M PRN PO DECREASED GLUCOSE; Start 09/12/18 at 04:30 Glucose (Glutose) 22.5 gm Q15M PRN PO DECREASED GLUCOSE; Start 09/12/18 at 04:30 Dextrose (D50w Syringe) 25 ml Q15M PRN IV DECREASED GLUCOSE; Start 09/12/18 at 04:30 Dextrose (D50w Syringe) 50 ml Q15M PRN IV DECREASED GLUCOSE; Start 09/12/18 at 04:30 Glucagon (Glucagen) 1 mg Q15M PRN IM DECREASED GLUCOSE; Start 09/12/18 at 04:30 Glucose (Glutose) 15 gm Q15M PRN BUCCAL DECREASED GLUCOSE; Start 09/12/18 at 04:30 Furosemide (Lasix) 20 mg DAILY@0600 IV Last administered on 09/23/18at 05:43; Admin Dose 20 MG; Start 09/14/18 at 06:00 Aspirin (Aspirin) 81 mg DAILY NGT Last administered on 09/23/18at 08:35; Admin Dose 81 MG; Start 09/14/18 at 09:30 Budesonide (Pulmicort (Neb)) 0.5 mg BID RESP THERAPY HHN Last administered on 09/23/18at 09:27; Admin Dose 0.5 MG; Start 09/16/18 at 20:00 Hydralazine HCl (Apresoline) 25 mg Q6 PO Last administered on 09/23/18at 05:43; Admin Dose 25 MG; Start 09/17/18 at 12:00 Isosorbide Dinitrate (Isordil) 20 mg TID NGT Last administered on 09/23/18 08:35; Admin Dose 20 MG; Start 09/17/18 at 10:00 Albuterol/ Ipratropium (Duoneb) 3 ml Q6H RESP THERAPY HHN Last administered on 09/23/18at 09:15; Admin Dose 3 ML; Start 09/18/18 at 20:00 Labetalol HCl (Labetalol) 10 mg Q4H PRN IV sbp>160 Last administered on 09/18/18 16:03; Admin Dose 10 MG; Start 09/18/18 at 14:30 Haloperidol (Haldol) 5 mg Q8 PRN IM agitation; Start 09/18/18 at 16:00 Lisinopril (Zestril) 20 mg BID NGT Last administered on 09/23/18at 08:36; Admin Dose 20 MG; Start 09/19/18 at 09:00 Acetaminophen/ Hydrocodone Bitart ([place] (5/325)) 1 tab Q4H PRN PO MODERATE PAIN LEVEL 4-6 Last administered on 09/19/18at 23:17; Admin Dose 1 TAB; Start 09/19/18 at 15:00 Carvedilol (Coreg) 25 mg BID PO Last administered on 09/23/18at 08:36; Admin Dose 25 MG; Start 09/20/18 at 21:00 Spironolactone (Aldactone) 50 mg DAILY NGT Last administered on 09/23/18 08:35; Admin Dose 50 MG; Start 09/21/18 at 09:00 Assessment/Plan Chief Complaint/Hosp Course Assessment 1. Status post cardiopulmonary arrest 2. Resolving toxic metabolic encephalopathy 3. Electrolyte abnormalities 4. Probable aspiration pneumonia 5. Resolving acute renal failure likely ATN 6. Anemia likely dilutional no evidence of acute GI bleed Plan 1. Aspiration precautions. 2. PT eval recs 3. Continue broad-spectrum antibiotics consider de-escalation of antibiotics 4. ARU eval. AICD placement. GERARDO INMAN MD, [facility] Sep 23, 2018 12:08
--- NOTE | 2018-09-23 13:18 | NUR ---
JACOBO notes: This ad copy writer left a message for [facility] of [facility] [employer] ([facility] [phone])to f/u on possible transfer to [facility], awaiting for call back, [facility] to inform of hospitalist Dr. Rm following the patient this week left a message with [facility] . VELVET Sosa x [phone] Addendum: 09/23/18 at 1605 by FREDERIC HASSAN CM Correction on above phone # to Allison of [facility] ....this ad copy writer left another message for Allison at [facility] regarding pending Transfer to [facility]. VELVET Sosa
--- NOTE | 2018-09-23 13:23 | NUR ---
ST NOTE; st seen for f/up; tolerating diet; pt on mch;thin; rec. upgrade to regular diet;thin liquids;
--- NOTE | 2018-09-23 15:30 | NUR ---
PT SARAHI Coleman [facility] Patient: Emily Elmore : 1955 Age/Sex: 63/F Unit#: [id number] Room/Bed: [facility]/A User: Lorna Prescott PTA Date: 09/23/18 15:30 Type: PT Technical Record Therapy day number 3 Transfer Training Start Time 14:52 Supine to Sit Stand by Assist Transfer Sit to Stand Ability Contact Guard Assist Bed Mobility Sit to Supine Stand by Assist Transfer Training End Time 15:00 Total Transfer Training Time 8 min (8-127) Patient uses wheelchair Not Applicable Gait Training Start Time 15:00 Gait Assist Levels Contact Guard Assist Assistive Devices Front Wheel Walker Ambulation Distance 150 feet Additional Gait Comments NBOS, slow tim, reciprocal pattern, BLEs crossover Gait Training End Time 15:30 Total Gait Training Treatment Time 30 min (8-127) Static Sitting Balance Good Dynamic Sitting Balance Good Standing Static Balance Fair Dynamic Standing Balance Fair Additional Balance Assessments Comments FWW Safety Judgement Fair Activity Tolerance Good Equipment Present A pump Additional Equipment Present 2L O2 via NC Post Treatment Pain Intensity 0 0-10 Total Treament Time 38 min (8-127) Total Minutes 38 Total Units 3 PT Technical Record Comment S: DANNY Mcghee cleared pt for PT. Pt denied pain and agreeable to tx O: Received pt in bed w/ HOB elevated. See above for assist levels. Gait training x 150' and presented w/ NBOS, slow tim, reciprocal pattern, and BLEs crossover. Instructed pt on proper gait sequencing and fall prevention, fair return. 2LOB and required CGA to recover. Returned pt back to room/bed. Positioned pt to comfort in semifowler. Call light/phone within reach. Bed alarm on. Needs met. RN informed of pt status and PT activities A: Good tolerance to tx. Significant improvment throughout tx, SBA/CGA. Required 1PA. 2 LOB during gait training and required CGA to recover. Pt would benefit more balance exercises P: Continue w/ POC and progress as tolerated
--- NOTE | 2018-09-23 18:56 | CONS ---
Date/Time of Note Date/Time of Note DATE: 09/23/18 TIME: 18:55 Consult Date/Type/Reason Admit Date/Time Sep 09, 2018 at 16:10 Initial Consult Date 09/10/18 Type of Consultation: CV Requesting Provider: OZZIE ALVAREZ MD Subjective Interventional cardiology follow-up progress note/critical care note Subjective: Case discussed with the staff and rhythm was reviewed. Patient remains in sinus rhythm . no VT. d/w multiple physicians BP is stable now 09/17/18: [facility] iva shows no significant obstructive coronary artery disease O: General: no acute distress HEENT: NC/AT. pupils are equal. round. NECK: no stridor. CV: RRR. systolic murmur; no gallop or rubs. PULM: no wheezing + rhonchi in the right side. GI: SOFT, NT, ND, no rebound or guarding Extremity: trace B/L LE edema. no clubbing. neuro: awake and alert Ox 3 Psych: calm rectal: deferred Right femoral artery with no bleeding or hematoma CXR 09/16/18: Since the prior study, there has been no significant interval change in the appearance of the heart or lungs or position of tubes and lines allowing for slight differences in technique and positioning.. Tubes and lines remain in good position. Right lung infiltrate is again seen with slight fluid in the minor fissure. The left lung remains relatively clear. echo reviewed Normal left ventricular cavity size. Moderate concentric left ventricular hypertrophy. Severe global left ventricular systolic dysfunction. Ejection fraction is visually estimated at 20 %. Mitral valve leaflets appear mildly thickened. Mild mitral annular calcification. Trace mitral regurgitation. No significant aortic stenosis or insufficiency. Aortic cusps appear mildly calcified. Normal appearance of the tricuspid valve. Estimated peak PA systolic pressure 27 mmHg. There is mild tricuspid regurgitation. Dilated IVC without respiratory collapse, however, patient on ventilator. ECHO 09/17/18 reviewed personally: Lower limits of normal systolic function. Normal left ventricular cavity size. Mild concentric left ventricular hypertrophy. Paradoxical septal motion consistent with IVCD or bundle branch block. Ejection fraction is visually estimated at 50 %. Tissue Doppler/Mitral Doppler indices are consistent with impaired relaxation (Stage I diastolic dysfunction). Compared to echo done on September 10, 2018 ejection fraction has significantly improved now. Mitral valve leaflets appear mildly thickened. Mild mitral annular calcification. Trace mitral regurgitation. Aortic sclerosis without significant stenosis. Trace aortic valve regurgitation. Normal appearance of the tricuspid valve. Estimated peak PA systolic pressure 33 mmHg. There is mild tricuspid regurgitation. Dilated IVC without respiratory collapse, however, patient on ventilator. Objective Vital Signs Date Temp Pulse Resp B/P (MAP) Pulse Ox O2 O2 Flow FiO2 Time Delivery Rate 09/23/18 78 16:00 09/23/18 98.1 18 108/58 95 15:37 (75) 09/23/18 Nasal 2.0 13:27 Cannula Intake and Output 09/22/18 09/22/18 09/23/18 1515:00 23:00 07:00 IntakeIntake Total 750 ml 700 ml OutputOutput Total 1200 ml BalanceBalance -450 ml 700 ml Results/Medications Result Diagram: 09/23/18 0539 09/23/18 0539 Results 24 hrs Laboratory Tests Test 09/23/18 05:39 White Blood Count 8.4 Red Blood Count 3.80 L Hemoglobin 11.4 L Hematocrit 35.2 L Mean Corpuscular Volume 92.6 Mean Corpuscular Hemoglobin 30.0 Mean Corpuscular Hemoglobin Concent 32.4 Red Cell Distribution Width 14.2 Platelet Count 413 Mean Platelet Volume 10.4 Immature Granulocytes % 1.100 H Neutrophils % 75.5 Lymphocytes % 12.3 L Monocytes % 8.5 Eosinophils % 1.9 Basophils % 0.7 Nucleated Red Blood Cells % 0.0 Immature Granulocytes # 0.090 H Neutrophils # 6.4 Lymphocytes # 1.0 Monocytes # 0.7 Eosinophils # 0.2 Basophils # 0.1 Nucleated Red Blood Cells # 0.0 Sodium Level 140 Potassium Level 4.0 Chloride Level 103 Carbon Dioxide Level 28 Anion Gap 9 Blood Urea Nitrogen 21 H Creatinine 1.06 H Est Glomerular Filtrat Rate mL/min > 60 Glucose Level 111 # Calcium Level 9.3 Medications Current Medications Acetaminophen (Tylenol Liquid) 650 mg Q6H PRN NGT PAIN LEVEL 1-3 OR FEVER Last administered on 09/20/18at 08:39; Admin Dose 650 MG; Start 09/09/18 at 16:30 Morphine Sulfate (morphine) 2 mg Q4H PRN IV PAIN LEVEL 7-10 Last administered on 09/13/18at 10:11; Admin Dose 2 MG; Start 09/09/18 at 16:30 Miscellaneous Information 1 ea NOTE XX ; Start 09/12/18 at 04:30 Glucose (Glutose) 15 gm Q15M PRN PO DECREASED GLUCOSE; Start 09/12/18 at 04:30 Glucose (Glutose) 22.5 gm Q15M PRN PO DECREASED GLUCOSE; Start 09/12/18 at 04:30 Dextrose (D50w Syringe) 25 ml Q15M PRN IV DECREASED GLUCOSE; Start 09/12/18 at 04:30 Dextrose (D50w Syringe) 50 ml Q15M PRN IV DECREASED GLUCOSE; Start 09/12/18 at 04:30 Glucagon (Glucagen) 1 mg Q15M PRN IM DECREASED GLUCOSE; Start 09/12/18 at 04:30 Glucose (Glutose) 15 gm Q15M PRN BUCCAL DECREASED GLUCOSE; Start 09/12/18 at 04:30 Furosemide (Lasix) 20 mg DAILY@0600 IV Last administered on 09/23/18at 05:43; Admin Dose 20 MG; Start 09/14/18 at 06:00 Aspirin (Aspirin) 81 mg DAILY NGT Last administered on 09/23/18at 08:35; Admin Dose 81 MG; Start 09/14/18 at 09:30 Budesonide (Pulmicort (Neb)) 0.5 mg BID RESP THERAPY HHN Last administered on 09/23/18at 09:27; Admin Dose 0.5 MG; Start 09/16/18 at 20:00 Hydralazine HCl (Apresoline) 25 mg Q6 PO Last administered on 09/23/18at 18:43; Admin Dose 25 MG; Start 09/17/18 at 12:00 Isosorbide Dinitrate (Isordil) 20 mg TID NGT Last administered on 09/23/18at 13:40; Admin Dose 20 MG; Start 09/17/18 at 10:00 Albuterol/ Ipratropium (Duoneb) 3 ml Q6H RESP THERAPY HHN Last administered on 09/23/18at 13:25; Admin Dose 3 ML; Start 09/18/18 at 20:00 Labetalol HCl (Labetalol) 10 mg Q4H PRN IV sbp>160 Last administered on 09/18/18at 16:03; Admin Dose 10 MG; Start 09/18/18 at 14:30 Haloperidol (Haldol) 5 mg Q8 PRN IM agitation; Start 09/18/18 at 16:00 Lisinopril (Zestril) 20 mg BID NGT Last administered on 09/23/18at 08:36; Admin Dose 20 MG; Start 09/19/18 at 09:00 Acetaminophen/ Hydrocodone Bitart ([place] (5/325)) 1 tab Q4H PRN PO MODERATE PAIN LEVEL 4-6 Last administered on 09/19/18at 23:17; Admin Dose 1 TAB; Start 09/19/18 at 15:00 Carvedilol (Coreg) 25 mg BID PO Last administered on 09/23/18at 08:36; Admin Dose 25 MG; Start 09/20/18 at 21:00 Spironolactone (Aldactone) 50 mg DAILY NGT Last administered on 09/23/18at 08:35; Admin Dose 50 MG; Start 09/21/18 at 09:00 Pantoprazole (Protonix Tab) 40 mg DAILY@06 PO ; Start 09/24/18 at 06:00 Assessment/Plan Chief Complaint/Hosp Course 1. Status post cardiopulmonary arrest 2. Hypoxemic hypercapnic respiratory failure status post intubation on the vent: now extubated 3. Right lung infiltrate consistent with pneumonia possible aspiration pneumonia 4. s/p VF/ V. tach arrest: 5. Encephalopathy 6. Severe lactic acidosis: resolved 7. Hyperglycemia: resolved 8. Transaminitis 9. Severe hypokalemia: corrected 10. Positive troponin consistent with NSTEMI; however, given the fact that patient had normal coronaries this most likely secondary to CPR and cardiopulmonary arrest and not true HI 11. Cardiomyopathy and hypertensive heart disease: EF improved from 20%now up to 50% 12. JULISSA : improved now 13. thrombocytopenia:resolved now 14. Anemia; s/p transfusion Recommendations: Continue with resp care. correct the potassium and Mg to keep K more than 4, magnesium more than 2 Antibiotic management will be deferred to internal medicine/pulmonary team Repeat echo has shown significant improvement in LV systolic function. WILL continue pt on hydralazine/ isordil. cont lisinopril and inc Aldactone and coreg . pt may have secondary HTN due to hyperaldosteronism or renal artery stenosis. I will order renal artery study to rule out renal artery stenosis ASA is on hold now given her worsening anemia and hematuria I have recommended the patient to have ICD placement before she is ready to be discharged home. I have tentatively scheduled her for Sunday morning for defibrillator placement. Risks benefits alternatives discussed with the patient consent was obtained discussed with patient daughter ready consent has been obtained. Thank you for his referral. We will continue to follow along with you DEMETRIUS MCCRAY MD [facility] DEMETRIUS MCCRAY MD Sep 23, 2018 18:56
--- NOTE | 2018-09-23 19:47 | NUR ---
EOSS: Pt VSS, AOOx4, ambulatory with assist, seen by PT, pt calm and cooperative, denies pain/SOB/distress. Pt to be sent to [facility] or AICD placement at [facility] by sunday. made aware of family request for letter for section 8 financial assistance. PT also requested a report for mobility status. all other needs met and questions answered.
[2018-09-24] VITALS (10 sets, daily range): BP systolic 101–130; BP diastolic 51–84; PULSE 72–86; RESP 18–20
[2018-09-24] MEDS: ALBUTEROL/IPRATROPIUM (NEB) 3 ML AMP HHN SCH ×4 (02:44→19:23)
[2018-09-24] MEDS: PANTOPRAZOLE (EC) 40 MG TAB PO SCH (06:09)
[2018-09-24] MEDS: FUROSEMIDE 20 MG INJ IV SCH (06:09)
[2018-09-24] MEDS: BUDESONIDE (NEB) 0.5MG/2ML AMP HHN SCH ×3 (08:06→19:24)
[2018-09-24] MEDS: SPIRONOLACTONE 50 MG TAB NGT SCH (08:20)
[2018-09-24] MEDS: ASPIRIN 81 MG TAB NGT SCH (08:21)
[2018-09-24] MEDS: LISINOPRIL 20 MG TAB NGT SCH ×2 (08:21→21:12)
[2018-09-24] MEDS: ISOSORBIDE DINITRATE 20 MG TAB NGT SCH ×3 (08:21→21:12)
--- NOTE | 2018-09-24 09:43 | PN ---
Date/Time of Note Date/Time of Note DATE: 09/24/18 TIME: 09:43 Assessment/Plan VTE Prophylaxis Risk score (from Ns)>0 risk: 3 SCD applied (from Ns): Yes Pharmacological prophylaxis: NA/contraindicated Pharm contraindication: low risk/ambulating Lines/Catheters IV Catheter Type (from Nrsg): Saline Lock Urinary Cath still in place: No Assessment/Plan Assessment/Plan 1. Acute encephalopathy- resolved 2. Fibromuscular dysplasia- stable - discussed findings with daughter and patient and need for follow up with PCP and Neurology as outpatient - seen on CT angio of the brain - Also likely the underlying cause of patient's blood pressure issues as she likely has the effects of the fibromuscular dysplasia throughout her body including the renal arteries - Aneurysm also seen on the CT angios of the brain likely 2/2 to fibromusclar dysplasia, partially calcified, likely not a surgical candidate due to calcification however patient will likely need very close follow-up with a neurologist with repeated scans and possible further intervention if deemed necessary 3. Vfib Cardiac arrest with ROSC s/p hypothermia protocol - plans for AICD placement prior to discharge home - Cardiology on board and appreciate consultation. Will continue current tr eatment with goal K >4 and Mg >2 - After being found down in Vfib arrest, patient underwent ACLS with 4 rounds of epi, Amiodarone x1, bicarb with ROSC. Patient noted with hypokalemia with K 2.1 at time of admission - ECHO reviewed and patient with poor EF 20% at time of admission. Repeat ECHO showed improvement to 50% - cardiac cath done 09/17/18, no significant stenosis 4. Acute hypoxic respiratory failure- resolving - No acute respiratory issues appreciated - Pulm on board and appreciate consultation - wean O2 as tolerated 5. Septic shock secondary to aspiration pneumonia- improving - Completed course of antibiotics - remains afebrile with normal WBC 6. Transaminitis- resolved - most likely secondary to hypoperfusion 7. HTN - stable 8. Hypokalemia- resolved 9. JULISSA- improving - Nephrology consultation appreciated. continue on lasix 10. Disposition - Plans for AICD placement then will be stable for discharge - discussed with family possible rehab due to prolonged ICU stay and open to rehab prior to returning home given she lives on 2nd floor without an elevator Result Diagram: 09/23/18 0539 09/24/18 0541 Results 24hrs Laboratory Tests Test 09/24/18 05:41 Sodium Level 137 Potassium Level 4.9 Chloride Level 101 Carbon Dioxide Level 26 Anion Gap 10 Blood Urea Nitrogen 29 H Creatinine 1.07 H Glucose Level 88 Calcium Level 9.1 Phosphorus Level 4.7 Magnesium Level 2.0 Albumin 3.4 Subjective 24 Hr Interval Summary Free Text/Dictation Patient doing well and daughter at bedside. Patient okay with plans for AICD placement. Still no bed at [facility]. Exam/Review of Systems Vital Signs Vitals Vital Signs Date Temp Pulse Resp B/P (MAP) Pulse Ox O2 O2 Flow FiO2 Time Delivery Rate 09/24/18 Nasal 2.0 08:31 Cannula 09/24/18 74 20 95 08:09 09/24/18 98.2 130/84 07:39 (99) 09/24/18 27 02:49 Intake and Output 09/23/18 09/23/18 09/24/18 1414:59 22:59 06:59 IntakeIntake Total 600 ml 500 ml BalanceBalance 600 ml 500 ml Exam General: Patient is laying in bed, no acute distress. answering questions appropriately Mentation: Patient is alert and oriented x4 Neck: Supple Respiratory: Clear to auscultation bilaterally. no wheezing or rhonchi Cardiovascular: regular rate and rhythm, no obvious murmurs Gastrointestinal: soft, non-tender to palpation, nondistended, bowel sounds heard. Neurological: Moves all extremities spontaneously Skin: No new skin lesions Medications Medications Current Medications Acetaminophen (Tylenol Liquid) 650 mg Q6H PRN NGT PAIN LEVEL 1-3 OR FEVER Last administered on 09/20/18at 08:39; Admin Dose 650 MG; Start 09/09/18 at 16:30 Morphine Sulfate (morphine) 2 mg Q4H PRN IV PAIN LEVEL 7-10 Last administered on 09/13/18at 10:11; Admin Dose 2 MG; Start 09/09/18 at 16:30 Miscellaneous Information 1 ea NOTE XX ; Start 09/12/18 at 04:30 Glucose (Glutose) 15 gm Q15M PRN PO DECREASED GLUCOSE; Start 09/12/18 at 04:30 Glucose (Glutose) 22.5 gm Q15M PRN PO DECREASED GLUCOSE; Start 09/12/18 at 04:30 Dextrose (D50w Syringe) 25 ml Q15M PRN IV DECREASED GLUCOSE; Start 09/12/18 at 04:30 Dextrose (D50w Syringe) 50 ml Q15M PRN IV DECREASED GLUCOSE; Start 09/12/18 at 04:30 Glucagon (Glucagen) 1 mg Q15M PRN IM DECREASED GLUCOSE; Start 09/12/18 at 04:30 Glucose (Glutose) 15 gm Q15M PRN BUCCAL DECREASED GLUCOSE; Start 09/12/18 at 04:30 Furosemide (Lasix) 20 mg DAILY@0600 IV Last administered on 09/24/18at 06:09; Admin Dose 20 MG; Start 09/14/18 at 06:00 Aspirin (Aspirin) 81 mg DAILY NGT Last administered on 09/24/18at 08:21; Admin Dose 81 MG; Start 09/14/18 at 09:30 Budesonide (Pulmicort (Neb)) 0.5 mg BID RESP THERAPY HHN Last administered on 09/24/18at 08:06; Admin Dose 0.5 MG; Start 09/16/18 at 20:00 Hydralazine HCl (Apresoline) 25 mg Q6 PO Last administered on 09/23/18at 18:43; Admin Dose 25 MG; Start 09/17/18 at 12:00 Isosorbide Dinitrate (Isordil) 20 mg TID NGT Last administered on 09/24/18at 08:21; Admin Dose 20 MG; Start 09/17/18 at 10:00 Albuterol/ Ipratropium (Duoneb) 3 ml Q6H RESP THERAPY HHN Last administered on 09/24/18at 07:57; Admin Dose 3 ML; Start 09/18/18 at 20:00 Labetalol HCl (Labetalol) 10 mg Q4H PRN IV sbp>160 Last administered on at 16:03; Admin Dose 10 MG; Start 09/18/18 at 14:30 Haloperidol (Haldol) 5 mg Q8 PRN IM agitation; Start 09/18/18 at 16:00 Lisinopril (Zestril) 20 mg BID NGT Last administered on 09/24/18at 08:21; Admin Dose 20 MG; Start 09/19/18 at 09:00 Acetaminophen/ Hydrocodone Bitart ([place] (5/325)) 1 tab Q4H PRN PO MODERATE PAIN LEVEL 4-6 Last administered on 09/19/18at 23:17; Admin Dose 1 TAB; Start 09/19/18 at 15:00 Carvedilol (Coreg) 25 mg BID PO Last administered on 09/24/18at 08:21; Admin Dose 25 MG; Start 09/20/18 at 21:00 Spironolactone (Aldactone) 50 mg DAILY NGT Last administered on 09/24/18at 08:20; Admin Dose 50 MG; Start 09/21/18 at 09:00 Pantoprazole (Protonix Tab) 40 mg DAILY@06 PO Last administered on 09/24/18at 06:09; Admin Dose 40 MG; Start 09/24/18 at 06:00 OZZIE ALVAREZ MD Sep 24, 2018 09:43
--- NOTE | 2018-09-24 10:51 | CONS ---
Date/Time of Note Date/Time of Note DATE: 09/24/18 TIME: 10:49 Consult Date/Type/Reason Admit Date/Time Sep 09, 2018 at 16:10 Initial Consult Date 09/10/18 Type of Consultation: Pulmonary ICU Requesting Provider: OZZIE ALVAREZ MD Subjective Patient remained stable this morning denies any shortness of breath no orthopnea no PND no chest pain ambulating without any complaints. Objective Vital Signs Date Temp Pulse Resp B/P (MAP) Pulse Ox O2 O2 Flow FiO2 Time Delivery Rate 09/24/18 Nasal 2.0 08:31 Cannula 09/24/18 74 20 95 08:09 09/24/18 98.2 130/84 07:39 (99) 09/24/18 27 02:49 Intake and Output 09/23/18 09/23/18 09/24/18 1515:00 23:00 07:00 IntakeIntake Total 600 ml 500 ml BalanceBalance 600 ml 500 ml Exam GENERAL: Well-nourished well-developed lady comfortable at rest VITAL SIGNS: per chart NECK: Supple. No JVD or lymphadenopathy. CARDIAC EXAM: S1, S2. No added sounds or murmurs. CHEST: clear bilaterally, No added sounds, rales or wheezes ABDOMEN: Soft, nontender. No guarding or rebound. EXTREMITIES: No cyanosis, clubbing or edema. NEUROLOGIC: Generalized weakness. No focal deficits. Results/Medications Result Diagram: 09/23/18 0539 09/24/18 0541 Results 24 hrs Laboratory Tests Test 09/24/18 05:41 Sodium Level 137 Potassium Level 4.9 Chloride Level 101 Carbon Dioxide Level 26 Anion Gap 10 Blood Urea Nitrogen 29 H Creatinine 1.07 H Glucose Level 88 Calcium Level 9.1 Phosphorus Level 4.7 Magnesium Level 2.0 Albumin 3.4 Medications Current Medications Acetaminophen (Tylenol Liquid) 650 mg Q6H PRN NGT PAIN LEVEL 1-3 OR FEVER Last administered on 09/20/18at 08:39; Admin Dose 650 MG; Start 09/09/18 at 16:30 Morphine Sulfate (morphine) 2 mg Q4H PRN IV PAIN LEVEL 7-10 Last administered on 09/13/18at 10:11; Admin Dose 2 MG; Start 09/09/18 at 16:30 Miscellaneous Information 1 ea NOTE XX ; Start 09/12/18 at 04:30 Glucose (Glutose) 15 gm Q15M PRN PO DECREASED GLUCOSE; Start 09/12/18 at 04:30 Glucose (Glutose) 22.5 gm Q15M PRN PO DECREASED GLUCOSE; Start 09/12/18 at 04:30 Dextrose (D50w Syringe) 25 ml Q15M PRN IV DECREASED GLUCOSE; Start 09/12/18 at 04:30 Dextrose (D50w Syringe) 50 ml Q15M PRN IV DECREASED GLUCOSE; Start 09/12/18 at 04:30 Glucagon (Glucagen) 1 mg Q15M PRN IM DECREASED GLUCOSE; Start 09/12/18 at 04:30 Glucose (Glutose) 15 gm Q15M PRN BUCCAL DECREASED GLUCOSE; Start 09/12/18 at 04:30 Furosemide (Lasix) 20 mg DAILY@0600 IV Last administered on 09/24/18at 06:09; Admin Dose 20 MG; Start 09/14/18 at 06:00 Aspirin (Aspirin) 81 mg DAILY NGT Last administered on 09/24/18at 08:21; Admin Dose 81 MG; Start 09/14/18 at 09:30 Budesonide (Pulmicort (Neb)) 0.5 mg BID RESP THERAPY HHN Last administered on 09/24/18at 08:06; Admin Dose 0.5 MG; Start 09/16/18 at 20:00 Hydralazine HCl (Apresoline) 25 mg Q6 PO Last administered on 09/23/18at 18:43; Admin Dose 25 MG; Start 09/17/18 at 12:00 Isosorbide Dinitrate (Isordil) 20 mg TID NGT Last administered on 09/24/18at 08:21; Admin Dose 20 MG; Start 09/17/18 at 10:00 Albuterol/ Ipratropium (Duoneb) 3 ml Q6H RESP THERAPY HHN Last administered on 09/24/18at 07:57; Admin Dose 3 ML; Start 09/18/18 at 20:00 Labetalol HCl (Labetalol) 10 mg Q4H PRN IV sbp>160 Last administered on 09/18/18at 16:03; Admin Dose 10 MG; Start 09/18/18 at 14:30 Haloperidol (Haldol) 5 mg Q8 PRN IM agitation; Start 09/18/18 at 16:00 Lisinopril (Zestril) 20 mg BID NGT Last administered on 09/24/18at 08:21; Admin Dose 20 MG; Start 09/19/18 at 09:00 Acetaminophen/ Hydrocodone Bitart ([place] (5/325)) 1 tab Q4H PRN PO MODERATE PAIN LEVEL 4-6 Last administered on 09/19/18at 23:17; Admin Dose 1 TAB; Start 09/19/18 at 15:00 Carvedilol (Coreg) 25 mg BID PO Last administered on 09/24/18at 08:21; Admin D ose 25 MG; Start 09/20/18 at 21:00 Spironolactone (Aldactone) 50 mg DAILY NGT Last administered on 09/24/18at 08:20; Admin Dose 50 MG; Start 09/21/18 at 09:00 Pantoprazole (Protonix Tab) 40 mg DAILY@06 PO Last administered on 09/24/18at 06:09; Admin Dose 40 MG; Start 09/24/18 at 06:00 Assessment/Plan Chief Complaint/Hosp Course assessment 1. Status post cardiopulmonary arrest 2. Resolving toxic metabolic encephalopathy 3. Postarrest mild neuromuscular weakness discussed with staff at bedside 4. Probable aspiration pneumonia 5. Resolving acute renal failure likely ATN 6. Anemia likely dilutional no evidence of acute GI bleed Plan 1. Pending AICD placement. 2. PT eval recs for precautions 3. Aspiration precautions 4. ARU eval ? Resolved renal insufficiency Discussed with staff at bedside GERARDO INMAN MD, [facility] Sep 24, 2018 10:51
--- NOTE | 2018-09-24 11:54 | NUR ---
PT NOTE [facility] Patient: Emily Elmore : 1955 Age/Sex: 63/F Unit#: [id number] Room/Bed: 7/A User: Angela Ruggiero AMALIA Date: 09/24/18 11:54 Type: PT Technical Record Therapy day number 4 PT Technical Record Comment PT NOTE Pt cleared and premedicated by DANNY Pritchard. Received awake in supine with daughter at bedside. Pt declined PT at the moment. "I just received my 5 pills and they make me feel dizzy when I get up. But I've been walking around this morning with my daughter." MD entered to discuss tomorrow's procedure. Pt agreed to attempt PT later if possible. Will attempt to return later in PM if time permitted. Left with daughter and MD at bedside.
--- NOTE | 2018-09-24 13:20 | NUR ---
OT NOTE: S: RN cleared pt for skilled OT tx. O: Pt received supine in bed on 2 ltrs of O2 and agreeable to tx- stating 0/10 pain. OTR educated pt on energy conservation strategies to increase safety and independence with ADL's. Pt demonstrated STS, toilet transfer and functional mob with SBA using FWW. Pt required vc for safety and O2 throughout. Pt proceeded to prepare for shower and underdressed herself with with supervision. Pt required CGA for shower transfer (pt sat on bench in shower). Seated on shower chair pt completed UB/LB bathing with CGA.. Pt dried and dressed herself with supervision once finished using the shower. Pt left seated at bedside with daughter. RN notified. A: Pt demonstrates increased activity tolerance, safety and balance. Pt continues to require vc to slow down and take her time. P: Cont POC.
--- NOTE | 2018-09-24 13:56 | CONS ---
Assessment/Plan Assessment/Plan Hospital Course Alert, feels good, no fevers overnight antimicrobials: none s/p Vancomycin, Zosyn Physical examination: This is well-developed well-nourished elderly - [place] woman who is intubated sedated in no distress. Head atraumatic normocephalic sclera nonicteric. Neck is supple. Chest rise symmetrical breath sounds clear, diminished bases. Heart: S1-S2. Abdomen soft, bowel sounds present. Extremities without cyanosis. Assessment: 1. S/p sepsis 2. S/p Pneumonia 3. Status post cardiopulmonary arrest 4. Hypertension 5. S/p resp failure==> extubated Plan: Remains stable, pending AICD==> ok from ID Result Diagram: 09/23/18 0539 09/24/18 0541 Results 24hrs Laboratory Tests Test 09/24/18 05:41 Sodium Level 137 Potassium Level 4.9 Chloride Level 101 Carbon Dioxide Level 26 Anion Gap 10 Blood Urea Nitrogen 29 H Creatinine 1.07 H Glucose Level 88 Calcium Level 9.1 Phosphorus Level 4.7 Magnesium Level 2.0 Albumin 3.4 Consultation Date/Type/Reason Admit Date/Time Sep 09, 2018 at 16:10 Initial Consult Date 09/10/18 Type of Consult id Requesting Provider: OZZIE ALVAREZ MD Exam/Review of Systems Vital Signs Vitals Vital Signs Date Temp Pulse Resp B/P (MAP) Pulse Ox O2 O2 Flow FiO2 Time Delivery Rate 09/24/18 78 20 96 Nasal 3.0 13:29 Cannula 09/24/18 98.0 101/51 12:14 (68) 09/24/18 27 02:49 Intake and Output 09/23/18 09/23/18 09/24/18 1515:00 23:00 07:00 IntakeIntake Total 600 ml 500 ml BalanceBalance 600 ml 500 ml Medications Medications Current Medications Acetaminophen (Tylenol Liquid) 650 mg Q6H PRN NGT PAIN LEVEL 1-3 OR FEVER Last administered on 09/20/18at 08:39; Admin Dose 650 MG; Start 09/09/18 at 16:30 Morphine Sulfate (morphine) 2 mg Q4H PRN IV PAIN LEVEL 7-10 Last administered on 09/13/18at 10:11; Admin Dose 2 MG; Start 09/09/18 at 16:30 Miscellaneous Information 1 ea NOTE XX ; Start 09/12/18 at 04:30 Glucose (Glutose) 15 gm Q15M PRN PO DECREASED GLUCOSE; Start 09/12/18 at 04:30 Glucose (Glutose) 22.5 gm Q15M PRN PO DECREASED GLUCOSE; Start 09/12/18 at 04:30 Dextrose (D50w Syringe) 25 ml Q15M PRN IV DECREASED GLUCOSE; Start 09/12/18 at 04:30 Dextrose (D50w Syringe) 50 ml Q15M PRN IV DECREASED GLUCOSE; Start 09/12/18 at 04:30 Glucagon (Glucagen) 1 mg Q15M PRN IM DECREASED GLUCOSE; Start 09/12/18 at 04:30 Glucose (Glutose) 15 gm Q15M PRN BUCCAL DECREASED GLUCOSE; Start 09/12/18 at 0 4:30 Furosemide (Lasix) 20 mg DAILY@0600 IV Last administered on 09/24/18at 06:09; Admin Dose 20 MG; Start 09/14/18 at 06:00 Aspirin (Aspirin) 81 mg DAILY NGT Last administered on 09/24/18at 08:21; Admin Dose 81 MG; Start 09/14/18 at 09:30 Budesonide (Pulmicort (Neb)) 0.5 mg BID RESP THERAPY HHN Last administered on 09/24/18at 08:06; Admin Dose 0.5 MG; Start 09/16/18 at 20:00 Hydralazine HCl (Apresoline) 25 mg Q6 PO Last administered on 09/24/18at 12:44; Admin Dose 25 MG; Start 09/17/18 at 12:00 Isosorbide Dinitrate (Isordil) 20 mg TID NGT Last administered on 09/24/18at 08:21; Admin Dose 20 MG; Start 09/17/18 at 10:00 Albuterol/ Ipratropium (Duoneb) 3 ml Q6H RESP THERAPY HHN Last administered on 09/24/18at 13:29; Admin Dose 3 ML; Start 09/18/18 at 20:00 Labetalol HCl (Labetalol) 10 mg Q4H PRN IV sbp>160 Last administered on 09/18/18at 16:03; Admin Dose 10 MG; Start 09/18/18 at 14:30 Haloperidol (Haldol) 5 mg Q8 PRN IM agitation; Start 09/18/18 at 16:00 Lisinopril (Zestril) 20 mg BID NGT Last administered on 09/24/18at 08:21; Admin Dose 20 MG; Start 09/19/18 at 09:00 Acetaminophen/ Hydrocodone Bitart ([place] (5/325)) 1 tab Q4H PRN PO MODERATE PAIN LEVEL 4-6 Last administered on 09/19/18at 23:17; Admin Dose 1 TAB; Start 09/19/18 at 15:00 Carvedilol (Coreg) 25 mg BID PO Last administered on 09/24/18at 08:21; Admin Dose 25 MG; Start 09/20/18 at 21:00 Spironolactone (Aldactone) 50 mg DAILY NGT Last administered on 09/24/18at 08:20; Admin Dose 50 MG; Start 09/21/18 at 09:00 Pantoprazole (Protonix Tab) 40 mg DAILY@06 PO Last administered on 09/24/18at 06:09; Admin Dose 40 MG; Start 09/24/18 at 06:00 Date/Time of Note Date/Time of Note DATE: 09/24/18 TIME: 13:55 MICHELLE RECINOS NP Sep 24, 2018 13:56
--- NOTE | 2018-09-24 18:59 | NUR ---
EOSS: No acute events during shift. Pt. remained stable. Hourly rounding complete. All needs meet. Call light within reach. Bed in lowest position. Pending AICD placement tomorrow. NPO after midnight except Meds. Will continue to monitor and report care to warehouse supervisor 3rd shift.
--- NOTE | 2018-09-24 20:46 | CONS ---
Date/Time of Note Date/Time of Note DATE: 09/24/18 TIME: 20:44 Consult Date/Type/Reason Admit Date/Time Sep 09, 2018 at 16:10 Initial Consult Date 09/10/18 Type of Consultation: cv Requesting Provider: OZZIE ALVAREZ MD Subjective Interventional cardiology follow-up progress note/critical care note Subjective: Case discussed with the staff and rhythm was reviewed. Patient remains in sinus rhythm . no VT. BP is stable/ low now 09/17/18: [facility] iva shows no significant obstructive coronary artery disease O: General: no acute distress HEENT: NC/AT. pupils are equal. round. NECK: no stridor. CV: RRR. systolic murmur; no gallop or rubs. PULM: no wheezing + rhonchi in the right side. GI: SOFT, NT, ND, no rebound or guarding Extremity: trace B/L LE edema. no clubbing. neuro: awake and alert Ox 3 Psych: calm rectal: deferred Right femoral artery with no bleeding or hematoma CXR 09/16/18: Since the prior study, there has been no significant interval change in the appearance of the heart or lungs or position of tubes and lines allowing for slight differences in technique and positioning.. Tubes and lines remain in good position. Right lung infiltrate is again seen with slight fluid in the minor fissure. The left lung remains relatively clear. echo reviewed Normal left ventricular cavity size. Moderate concentric left ventricular hypertrophy. Severe global left ventricular systolic dysfunction. Ejection fraction is visually estimated at 20 %. Mitral valve leaflets appear mildly thickened. Mild mitral annular calcification. Trace mitral regurgitation. No significant aortic stenosis or insufficiency. Aortic cusps appear mildly calcified. Normal appearance of the tricuspid valve. Estimated peak PA systolic pressure 27 mmHg. There is mild tricuspid regurgitation. Dilated IVC without respiratory collapse, however, patient on ventilator. ECHO 09/17/18 reviewed personally: Lower limits of normal systolic function. Normal left ventricular cavity size. Mild concentric left ventricular hypertrophy. Paradoxical septal motion consistent with IVCD or bundle branch block. Ejection fraction is visually estimated at 50 %. Tissue Doppler/Mitral Doppler indices are consistent with impaired relaxation (Stage I diastolic dysfunction). Compared to echo done on September 10, 2018 ejection fraction has significantly improved now. Mitral valve leaflets appear mildly thickened. Mild mitral annular calcification. Trace mitral regurgitation. Aortic sclerosis without significant stenosis. Trace aortic valve regurgitation. Normal appearance of the tricuspid valve. Estimated peak PA systolic pressure 33 mmHg. There is mild tricuspid regurgitation. Dilated IVC without respiratory collapse, however, patient on ventilator. Objective Vital Signs Date Temp Pulse Resp B/P (MAP) Pulse Ox O2 O2 Flow FiO2 Time Delivery Rate 09/24/18 82 20:00 09/24/18 20 94 21 19:24 09/24/18 98.0 108/55 15:44 (72) 09/24/18 Nasal 3.0 13:29 Cannula Intake and Output 09/23/18 09/23/18 09/24/18 1515:00 23:00 07:00 IntakeIntake Total 600 ml 500 ml BalanceBalance 600 ml 500 ml Results/Medications Result Diagram: 09/23/18 0539 09/24/18 0541 Results 24 hrs Laboratory Tests Test 09/24/18 05:41 Sodium Level 137 Potassium Level 4.9 Chloride Level 101 Carbon Dioxide Level 26 Anion Gap 10 Blood Urea Nitrogen 29 H Creatinine 1.07 H Glucose Level 88 Calcium Level 9.1 Phosphorus Level 4.7 Magnesium Level 2.0 Albumin 3.4 Medications Current Medications Acetaminophen (Tylenol Liquid) 650 mg Q6H PRN NGT PAIN LEVEL 1-3 OR FEVER Last administered on 09/20/18at 08:39; Admin Dose 650 MG; Start 09/09/18 at 16:30 Morphine Sulfate (morphine) 2 mg Q4H PRN IV PAIN LEVEL 7-10 Last administered on 09/13/18at 10:11; Admin Dose 2 MG; Start 09/09/18 at 16:30 Miscellaneous Information 1 ea NOTE XX ; Start 09/12/18 at 04:30 Glucose (Glutose) 15 gm Q15M PRN PO DECREASED GLUCOSE; Start 09/12/18 at 04:30 Glucose (Glutose) 22.5 gm Q15M PRN PO DECREASED GLUCOSE; Start 09/12/18 at 04:30 Dextrose (D50w Syringe) 25 ml Q15M PRN IV DECREASED GLUCOSE; Start 09/12/18 at 04:30 Dextrose (D50w Syringe) 50 ml Q15M PRN IV DECREASED GLUCOSE; Start 09/12/18 at 04:30 Glucagon (Glucagen) 1 mg Q15M PRN IM DECREASED GLUCOSE; Start 09/12/18 at 04:30 Glucose (Glutose) 15 gm Q15M PRN BUCCAL DECREASED GLUCOSE; Start 09/12/18 at 04:30 Furosemide (Lasix) 20 mg DAILY@0600 IV Last administered on 09/24/18 06:09; Admin Dose 20 MG; Start 09/14/18 at 06:00 Aspirin (Aspirin) 81 mg DAILY NGT Last administered on 09/24/18 08:21; Admin Dose 81 MG; Start 09/14/18 at 09:30 Budesonide (Pulmicort (Neb)) 0.5 mg BID RESP THERAPY HHN Last administered on 09/24/18at 08:06; Admin Dose 0.5 MG; Start 09/16/18 at 20:00 Hydralazine HCl (Apresoline) 25 mg Q6 PO Last administered on 09/24/18at 18:47; Admin Dose 25 MG; Start 09/17/18 at 12:00 Isosorbide Dinitrate (Isordil) 20 mg TID NGT Last administered on 09/24/18 08:21; Admin Dose 20 MG; Start 09/17/18 at 10:00 Albuterol/ Ipratropium (Duoneb) 3 ml Q6H RESP THERAPY HHN Last administered on 09/24/18 19:23; Admin Dose 3 ML; Start 09/18/18 at 20:00 Labetalol HCl (Labetalol) 10 mg Q4H PRN IV sbp>160 Last administered on 09/18/18at 16:03; Admin Dose 10 MG; Start 09/18/18 at 14:30 Haloperidol (Haldol) 5 mg Q8 PRN IM agitation; Start 09/18/18 at 16:00 Lisinopril (Zestril) 20 mg BID NGT Last administered on 09/24/18at 08:21; Admin Dose 20 MG; Start 09/19/18 at 09:00 Acetaminophen/ Hydrocodone Bitart ([place] (5/325)) 1 tab Q4H PRN PO MODERATE PAIN LEVEL 4-6 Last administered on 09/19/18at 23:17; Admin Dose 1 TAB; Start 09/19/18 at 15:00 Carvedilol (Coreg) 25 mg BID PO Last administered on 09/24/18 08:21; Admin Dose 25 MG; Start 09/20/18 at 21:00 Spironolactone (Aldactone) 50 mg DAILY NGT Last administered on 09/24/18at 08:20; Admin Dose 50 MG; Start 09/21/18 at 09:00 Pantoprazole (Protonix Tab) 40 mg DAILY@06 PO Last administered on 09/24/18at 06:09; Admin Dose 40 MG; Start 09/24/18 at 06:00 Assessment/Plan Chief Complaint/Hosp Course 1. Status post cardiopulmonary arrest 2. Hypoxemic hypercapnic respiratory failure status post intubation on the vent: now extubated 3. Right lung infiltrate consistent with pneumonia possible aspiration pneumonia 4. s/p VF/ V. tach arrest: 5. Encephalopathy 6. Severe lactic acidosis: resolved 7. Hyperglycemia: resolved 8. Transaminitis 9. Severe hypokalemia: corrected 10. Positive troponin consistent with NSTEMI; however, given the fact that patient had normal coronaries this most likely secondary to CPR and cardiopulmonary arrest and not true [place] 11. Cardiomyopathy and hypertensive heart disease: EF improved from 20%now up to 50% 12. JULISSA : improved now 13. thrombocytopenia:resolved now 14. Anemia; s/p transfusion Recommendations: correct the potassium and Mg to keep K more than 4, magnesium more than 2 Antibiotic management will be deferred to internal medicine/pulmonary team Repeat echo has shown significant improvement in LV systolic function. WILL dc hydralazine due to hypotension ( it has been held due to hypotension). cont lisinopril and inc Aldactone and coreg . pt may have secondary HTN due to hyperaldosteronism or renal artery stenosis. I have ordered renal artery u/s study to rule out renal artery stenosis, it has not been done yet. ASA is on hold now I have recommended the patient to have ICD placement before she is ready to be discharged home. I have scheduled her for Sunday morning for defibrillator placement. Risks benefits alternatives discussed with the patient consent was obtained discussed with patient daughter ready consent has been obtained. Thank you for his referral. We will continue to follow along with you DEMETRIUS MCCRAY MD [facility] DEMETRIUS MCCRAY MD Sep 24, 2018 20:46
[2018-09-24] MEDS: DEXTROSE 5%-0.9% NACL 1,000 ML IV SCH (21:00)
--- NOTE | 2018-09-24 22:00 | NUR ---
START I/V ON LT HAND PT TOLERATED WELL
[2018-09-25] VITALS (18 sets, daily range): BP systolic 102–164; BP diastolic 55–90; PULSE 73–97; RESP 17–20
--- NOTE | 2018-09-25 | NUR ---
PT NPO FOR AICD PLACEMENT CONSENT SIGNED BY PT DAUGHTER PT UNDERSTAND FAMILY AT BED SIDE CALL LIGHT WITH IN REACH NO ACUTE DISTRESS NOTED
[2018-09-25] MEDS: ALBUTEROL/IPRATROPIUM (NEB) 3 ML AMP HHN SCH ×4 (01:47→19:52)
[2018-09-25] MEDS: DEXTROSE 5%-0.9% NACL 1,000 ML IV SCH (05:20)
[2018-09-25] MEDS: PANTOPRAZOLE (EC) 40 MG TAB PO SCH (06:33)
[2018-09-25] MEDS: FUROSEMIDE 20 MG INJ IV SCH (06:33)
--- NOTE | 2018-09-25 06:40 | NUR ---
PT TRANSFER TO OR FOR AICD PLACEMENT WITH STABLE CONDITION
[2018-09-25] MEDS ORDERED: LIDOCAINE 2%/EPI 30 ML INJ ONE (06:54)
[2018-09-25] MEDS ORDERED: LIDOCAINE 1%/EPI 30 ML INJ ONE (07:11)
[2018-09-25] MEDS ORDERED: LIDOCAINE 1% (MDV) 20 ML INJ ONE (07:11)
[2018-09-25] MEDS ORDERED: CEFAZOLIN 1 GM/50 ML (PMX) 100 ML IVPB ONE (07:13)
[2018-09-25] MEDS ORDERED: POLYMYXIN/BACITRACIN 1L IRRIG IRR ONE (07:30)
--- NOTE | 2018-09-25 08:42 | OPR ---
Date/Time of Note Date/Time of Note DATE: 09/25/18 TIME: 08:38 Operative Report Procedure Date: Sep 25, 2018 Preoperative Diagnosis VF cardiac arrest Postoperative Diagnosis See below Operation/Procedure Performed ICD placement Surgeon see signature line Medicaid Analyst n/a Anesthesia Type: other Anesthesiologist: EDWARD CARDENAS MD Estimated Blood Loss: minimal Transfusion none Specimen None Grafts/Implants none Complications none Procedure Description Operative\Procedure NOTE: Procedure performed: Implantation of single chamber ICD using a MRI compatible [employer] device Left subclavian venogram and radiological interpretations Fluoroscopy and supervision Intracardiac electrocardiogram and defibrillator threshold testing. Indication: 63-year-old female who presented with VF cardiac arrest. Patient coronary angiogram did not show any significant obstructive coronary artery disease despite the fact that she has positive troponin. It was felt that the patient would need to have an ICD placement for secondary prevention of sudden cardiac /V. fib cardiac arrest Anesthesia: Per anesthesiologist Brand Specialist: Demetrius Graham MD Procedure in detail: Written informed consent was obtained after risks benefits and alternatives discussed with the patient and family in detail. Risks including but not limited to risk of infection, bleeding complications, anesthesia related complications, VT, CVA, perforation, pneumothorax hemothorax, etc discussed with pt in detail. Patient was brought into into the [employer] and placed in supine position. sedation was given. Right and left chest area was prepped and draped in regular sterile fashion. Left subclavian venogram was performed that showed patent subclavian vein and a small cephalic vein. AC groove area was anesthetized using 1% lidocaine with epi. A 4 cm incision was made in the AC groove area. Blunt dissection was carried out. Cephalic vein was isolated. It was cannulated using a micropuncture needle and an BMW wire was advanced through into the inferior vena cava. Micropuncture sheath was placed over it. BMW wire was removed and a J-wire was advanced through it. Then the micropuncture sheath was removed and a 8 Lao sheath was placed over into the cephalic vein. RV ICD lead was advanced under direct fluoroscopy and placed in the apex. Once a good position was found, threshold was checked which showed excellent threshold. It was screwed into place and threshold were checked again which showed good injury pattern and no diaphragmatic stimulation at 10 V an excellent thresholds. Then the sheath was peeled away. lead was tied down using 0 Ethibond suture. Pocket was irrigated with antibiotic solution. The lead was checked again which showed good thresholds. Then leads were connected into the device. Device was placed into the pocket and sutured using 0 Ethibond suture. At this point if defibrillator threshold testing was performed. First external defibrillator was checked as 1 J. Then through the device patient was induced into V. fib using the method of shock on T. The device appropriately detected the V. fib and successfully cardioverted the patient back into sinus/paced rhythm at 17.5 J. Pocket was irrigated again using antibiotic solution. Wound was closed with 1 layer of 2.0 Vicryl and 2 layers of 3.0 Vicryl. Steri- Strip was applied and pressure dressing was applied. Patient tolerated procedure well with no complication and was transferred to the recovery room in stable condition. Immediate complication: none Please see physical chart for details regarding pacemaker information and thresholds. Conclusions: Successful implantation of single-chamber ICD and defibrillator threshold testing. DEMETRIUS GRAHAM MD Sep 25, 2018 08:42
[2018-09-25] MEDS: BUDESONIDE (NEB) 0.5MG/2ML AMP HHN SCH ×2 (08:44→19:53)
--- NOTE | 2018-09-25 08:44 | CONS ---
Date/Time of Note Date/Time of Note DATE: 09/25/18 TIME: 08:43 Consult Date/Type/Reason Admit Date/Time Sep 09, 2018 at 16:10 Initial Consult Date 09/10/18 Type of Consultation: cv Requesting Provider: OZZIE ALVAREZ MD Subjective Interventional cardiology follow-up progress note/critical care note Subjective: Case discussed with the staff and rhythm was reviewed. Patient remains in sinus rhythm . no VT. BP is stable/ low now dw daughter. events noted 09/17/18: [facility] iva shows no significant obstructive coronary artery disease O: General: no acute distress HEENT: NC/AT. pupils are equal. round. NECK: no stridor. CV: RRR. systolic murmur; no gallop or rubs. PULM: no wheezing + rhonchi in the right side. GI: SOFT, NT, ND, no rebound or guarding Extremity: trace B/L LE edema. no clubbing. neuro: awake and alert Ox 3 Psych: calm rectal: deferred Right femoral artery with no bleeding or hematoma CXR 09/16/18: Since the prior study, there has been no significant interval change in the appearance of the heart or lungs or position of tubes and lines allowing for slight differences in technique and positioning.. Tubes and lines remain in good position. Right lung infiltrate is again seen with slight fluid in the minor fissure. The left lung remains relatively clear. echo reviewed Normal left ventricular cavity size. Moderate concentric left ventricular hypertrophy. Severe global left ventricular systolic dysfunction. Ejection fraction is visually estimated at 20 %. Mitral valve leaflets appear mildly thickened. Mild mitral annular calcification. Trace mitral regurgitation. No significant aortic stenosis or insufficiency. Aortic cusps appear mildly calcified. Normal appearance of the tricuspid valve. Estimated peak PA systolic pressure 27 mmHg. There is mild tricuspid regurgitation. Dilated IVC without respiratory collapse, however, patient on ventilator. ECHO 09/17/18 reviewed personally: Lower limits of normal systolic function. Normal left ventricular cavity size. Mild concentric left ventricular hypertrophy. Paradoxical septal motion consistent with IVCD or bundle branch block. Ejection fraction is visually estimated at 50 %. Tissue Doppler/Mitral Doppler indices are consistent with impaired relaxation (Stage I diastolic dysfunction). Compared to echo done on September 10, 2018 ejection fraction has significantly improved now. Mitral valve leaflets appear mildly thickened. Mild mitral annular calcification. Trace mitral regurgitation. Aortic sclerosis without significant stenosis. Trace aortic valve regurgitation. Normal appearance of the tricuspid valve. Estimated peak PA systolic pressure 33 mmHg. There is mild tricuspid regurgitation. Dilated IVC without respiratory collapse, however, patient on ventilator. Objective Vital Signs Date Temp Pulse Resp B/P (MAP) Pulse Ox O2 O2 Flow FiO2 Time Delivery Rate 09/25/18 98.2 84 20 136/66 94 04:00 (89) 09/25/18 21 01:47 09/24/18 Nasal 2.0 20:00 Cannula Intake and Output 09/24/18 09/24/18 09/25/18 1515:00 23:00 07:00 IntakeIntake Total 800 ml 400 ml BalanceBalance 800 ml 400 ml Results/Medications Result Diagram: 09/23/18 0539 09/24/18 0541 Medications Current Medications Acetaminophen (Tylenol Liquid) 650 mg Q6H PRN NGT PAIN LEVEL 1-3 OR FEVER Last administered on 09/20/18at 08:39; Admin Dose 650 MG; Start 09/09/18 at 16:30 Morphine Sulfate (morphine) 2 mg Q4H PRN IV PAIN LEVEL 7-10 Last administered on 09/13/18at 10:11; Admin Dose 2 MG; Start 09/09/18 at 16:30 Miscellaneous Information 1 ea NOTE XX ; Start 09/12/18 at 04:30 Glucose (Glutose) 15 gm Q15M PRN PO DECREASED GLUCOSE; Start 09/12/18 at 04:30 Glucose (Glutose) 22.5 gm Q15M PRN PO DECREASED GLUCOSE; Start 09/12/18 at 04:30 Dextrose (D50w Syringe) 25 ml Q15M PRN IV DECREASED GLUCOSE; Start 09/12/18 at 04:30 Dextrose (D50w Syringe) 50 ml Q15M PRN IV DECREASED GLUCOSE; Start 09/12/18 at 04:30 Glucagon (Glucagen) 1 mg Q15M PRN IM DECREASED GLUCOSE; Start 09/12/18 at 04:30 Glucose (Glutose) 15 gm Q15M PRN BUCCAL DECREASED GLUCOSE; Start 09/12/18 at 04:30 Furosemide (Lasix) 20 mg DAILY@0600 IV Last administered on 09/25/18at 06:33; Admin Dose 20 MG; Start 09/14/18 at 06:00 Aspirin (Aspirin) 81 mg DAILY NGT Last administered on 09/24/18 08:21; Admin Dose 81 MG; Start 09/14/18 at 09:30 Budesonide (Pulmicort (Neb)) 0.5 mg BID RESP THERAPY HHN Last administered on 09/24/18 08:06; Admin Dose 0.5 MG; Start 09/16/18 at 20:00 Isosorbide Dinitrate (Isordil) 20 mg TID NGT Last administered on 09/24/18 21:12; Admin Dose 20 MG; Start 09/17/18 at 10:00 Albuterol/ Ipratropium (Duoneb) 3 ml Q6H RESP THERAPY HHN Last administered on 09/25/18 01:47; Admin Dose 3 ML; Start 09/18/18 at 20:00 Labetalol HCl (Labetalol) 10 mg Q4H PRN IV sbp>160 Last administered on 09/03 16:03; Admin Dose 10 MG; Start 09/18/18 at 14:30 Haloperidol (Haldol) 5 mg Q8 PRN IM agitation; Start 09/18/18 at 16:00 Lisinopril (Zestril) 20 mg BID NGT Last administered on 09/24/18 21:12; Admin Dose 20 MG; Start 09/19/18 at 09:00 Acetaminophen/ Hydrocodone Bitart ([place] (5/325)) 1 tab Q4H PRN PO MODERATE PAIN LEVEL 4-6 Last administered on 09/19/18 23:17; Admin Dose 1 TAB; Start at 15:00 Carvedilol (Coreg) 25 mg BID PO Last administered on 09/24/18at 21:13; Admin Dose 25 MG; Start 09/20/18 at 21:00 Spironolactone (Aldactone) 50 mg DAILY NGT Last administered on 09/24/18 08:20; Admin Dose 50 MG; Start 09/21/18 at 09:00 Pantoprazole (Protonix Tab) 40 mg DAILY@06 PO Last administered on 09/25/18 06:33; Admin Dose 40 MG; Start 09/24/18 at 06:00 Assessment/Plan Chief Complaint/Hosp Course 1. Status post cardiopulmonary arrest 2. Hypoxemic hypercapnic respiratory failure status post intubation on the vent: now extubated 3. Right lung infiltrate consistent with pneumonia possible aspiration pneumonia 4. s/p VF/ V. tach arrest: 5. Encephalopathy 6. Severe lactic acidosis: resolved 7. Hyperglycemia: resolved 8. Transaminitis 9. Severe hypokalemia: corrected 10. Positive troponin consistent with NSTEMI; however, given the fact that patient had normal coronaries this most likely secondary to CPR and cardiopulmonary arrest and not true [place] 11. Cardiomyopathy and hypertensive heart disease: EF improved from 20%now up to 50% 12. JULISSA : improved now 13. thrombocytopenia:resolved now 14. Anemia; s/p transfusion Recommendations: correct the potassium and Mg to keep K more than 4, magnesium more than 2 Antibiotic management will be deferred to internal medicine/pulmonary team Repeat echo has shown significant improvement in LV systolic function. WILL dc hydralazine due to hypotension ( it has been held due to hypotension). cont lisinopril and inc Aldactone and coreg . pt may have secondary HTN due to hyperaldosteronism or renal artery stenosis. I have ordered renal artery u/s study to rule out renal artery stenosis, it has not been done yet. ASA is on hold now I have recommended the patient to have ICD placement before she is ready to be discharged home. I have scheduled her for today morning for defibrillator placement. Risks benefits alternatives discussed with the patient consent was obtained discussed with patient daughter ready consent has been obtained. Thank you for his referral. We will continue to follow along with you DEMETRIUS MCCRAY MD [facility] DEMETRIUS MCCRAY MD Sep 25, 2018 08:44
--- NOTE | 2018-09-25 08:56 | PAC ---
Date/Time of Note Date/Time of Note DATE: 09/25/18 TIME: 08:56 Post-Anesthesia Notes Post-Anesthesia Note Last documented vital signs Vital Signs Date Temp Pulse Resp B/P (MAP) Pulse Ox O2 O2 Flow FiO2 Time Delivery Rate 09/25/18 98.2 84 20 136/66 94 04:00 (89) 09/25/18 01:47 09/24/18 Nasal 2.0 20:00 Cannula Activity: WNL Respiratory function: WNL Cardiovascular function: WNL Mental status: Baseline Pain reasonably controlled: Yes Hydration appropriate: Yes Nausea/Vomiting absent: No EDWARD CARDENAS MD Sep 25, 2018 08:56
--- NOTE | 2018-09-25 08:56 | PREAC ---
Date/Time of Note Date/Time of Note DATE: 09/25/18 TIME: 08:51 Anesthesia Eval and Record Evaluation Time Pre-Procedure Interview DATE: 09/25/18 TIME: 08:51 Age 63 Sex female NPO: 8 hrs Preoperative diagnosis Cardiac Arrest Sepsis Hypokalemia Planned procedure ACD Placement And Defibrillation Threshhold Testing Past Medical History Past Medical History: Includes Cardio: HTN, Dyslipidemia, PA, CAD, Arrythmia Endo: Other Pulm: Other Neuro: Other Musculoskeletal: Osteoarthritis Renal: Other Hepatic: Other GI: Other Heme: Other Psych: Other Infection(s): Other Recreational drugs: Other : Other Surgery & Anesthesia Issues Aspiration risk Meds Anticoagulation: No Beta Jr within 24 hr: No Reason Beta Jr not given: Pt. not on B-Jr Reported Medications Hydrochlorothiazide* (Hydrochlorothiazide*) 25 Mg Tab, 25 MG PO DAILY, #30 TAB 09/09/18 Simvastatin (Simvastatin) 20 Mg Tablet, 20 MG PO DAILY 09/09/18 Lisinopril* (Lisinopril*) 40 Mg Tablet, 40 MG PO DAILY 09/09/18 Current Medications Acetaminophen (Tylenol Liquid) 650 mg Q6H PRN NGT PAIN LEVEL 1-3 OR FEVER Last administered on 09/20/18at 08:39; Admin Dose 650 MG; Start 09/09/18 at 16:30 Morphine Sulfate (morphine) 2 mg Q4H PRN IV PAIN LEVEL 7-10 Last administered on 09/13/18at 10:11; Admin Dose 2 MG; Start 09/09/18 at 16:30 Miscellaneous Information 1 ea NOTE XX ; Start 09/12/18 at 04:30 Glucose (Glutose) 15 gm Q15M PRN PO DECREASED GLUCOSE; Start 09/12/18 at 04:30 Glucose (Glutose) 22.5 gm Q15M PRN PO DECREASED GLUCOSE; Start 09/12/18 at 04:30 Dextrose (D50w Syringe) 25 ml Q15M PRN IV DECREASED GLUCOSE; Start 09/12/18 at 04:30 Dextrose (D50w Syringe) 50 ml Q15M PRN IV DECREASED GLUCOSE; Start 09/12/18 at 04:30 Glucagon (Glucagen) 1 mg Q15M PRN IM DECREASED GLUCOSE; Start 09/12/18 at 04:30 Glucose (Glutose) 15 gm Q15M PRN BUCCAL DECREASED GLUCOSE; Start 09/12/18 at 04:30 Furosemide (Lasix) 20 mg DAILY@0600 IV Last administered on 09/25/18 06:33; Admin Dose 20 MG; Start 09/14/18 at 06:00 Aspirin (Aspirin) 81 mg DAILY NGT Last administered on 09/24/18at 08:21; Admin Dose 81 MG; Start 09/14/18 at 09:30 Budesonide (Pulmicort (Neb)) 0.5 mg BID RESP THERAPY HHN Last administered on 09/24/18at 08:06; Admin Dose 0.5 MG; Start 09/16/18 at 20:00 Isosorbide Dinitrate (Isordil) 20 mg TID NGT Last administered on 09/24/18at 21:12; Admin Dose 20 MG; Start 09/17/18 at 10:00 Albuterol/ Ipratropium (Duoneb) 3 ml Q6H RESP THERAPY HHN Last administered on 09/25/18at 01:47; Admin Dose 3 ML; Start 09/18/18 at 20:00 Labetalol HCl (Labetalol) 10 mg Q4H PRN IV sbp>160 Last administered on 09/18/18at 16:03; Admin Dose 10 MG; Start 09/18/18 at 14:30 Haloperidol (Haldol) 5 mg Q8 PRN IM agitation; Start 09/18/18 at 16:00 Lisinopril (Zestril) 20 mg BID NGT Last administered on 09/24/18at 21:12; Admin Dose 20 MG; Start 09/19/18 at 09:00 Acetaminophen/ Hydrocodone Bitart ([place] (5/325)) 1 tab Q4H PRN PO MODERATE PAIN LEVEL 4-6 Last administered on 09/19/18 23:17; Admin Dose 1 TAB; Start 09/19/18 at 15:00 Carvedilol (Coreg) 25 mg BID PO Last administered on 09/24/18at 21:13; Admin Dose 25 MG; Start 09/20/18 at 21:00 Spironolactone (Aldactone) 50 mg DAILY NGT Last administered on 09/24/18at 08:20; Admin Dose 50 MG; Start 09/21/18 at 09:00 Pantoprazole (Protonix Tab) 40 mg DAILY@06 PO Last administered on 09/25/18at 06:33; Admin Dose 40 MG; Start 09/24/18 at 06:00 Morphine Sulfate (morphine) 1 mg Q1H PRN IV PAIN LEVEL 6-10; Start 09/25/18 at 09:00; Status UNV Cefazolin Sodium 50 ml @ 100 mls/hr Q8 IVPB ; Start 09/25/18 at 14:00; Stop 09/26/18 at 06:29; Status UNV Meds reviewed: Yes Allergies Coded Allergies: Unknown: Unable to obtain (Unverified , 09/11/18) Allergies Reviewed: Yes Labs/Studies Labs Reviewed: Reviewed by anesthesiologist Result Diagram: 09/23/18 0539 09/24/18 0541 test: N/A Studies: ECG Pre-procedure Exam Last vitals Vital Signs Date Temp Pulse Resp B/P (MAP) Pulse Ox O2 O2 Flow FiO2 Time Delivery Rate 09/25/18 98.2 84 20 136/66 94 04:00 (89) 09/25/18 21 01:47 09/24/18 Nasal 2.0 20:00 Cannula Airway: Adequate mouth opening Mallampati: Mallampati II Teeth: Normal Lung: Normal Heart: Abnormal Anticipated Difficutly with IV: Anticipate Difficult IV Access ASA Physical Status ASA physical status: 3 Emergency: None Planned Anesthetic General/MAC: MAC Neuraxial: Other Nerve block: Other Planned Pain Management Parenteral pain med, Local by surgeon Pre-operative Attestations Prior to commencing anesthesia and surgery, the patient was re-evaluated, there was verification of: *The patient's identity *The results of appropriate recent lab work and preoperative vital signs *The above evaluation not changing prior to induction *Anesthetic plan, risk benefits, alternative and complications discussed with patient/family; questions answered; patient/family understands, accepts and wishes to proceed. EDWARD CARDENAS MD Sep 25, 2018 08:56
[2018-09-25] MEDS ORDERED: morphine SULFATE/PF (2 MG/2 ML) SYG IV PRN (09:00)
--- NOTE | 2018-09-25 09:20 | PN ---
Date/Time of Note Date/Time of Note DATE: 09/25/18 TIME: 09:20 Assessment/Plan VTE Prophylaxis Risk score (from Nsg)>0 risk: 3 SCD applied (from Ns): Yes Pharmacological prophylaxis: heparin Lines/Catheters IV Catheter Type (from Nrsg): Peripheral IV Urinary Cath still in place: No Assessment/Plan Assessment/Plan 1. Vfib Cardiac arrest with ROSC s/p hypothermia protocol s/p AICD placement - tolerated AICD placement this am and will get OT to work with patient given will be in a sling for a couple weeks - Cardiology on board and appreciate consultation. - After being found down in Vfib arrest, patient underwent ACLS with 4 rounds of epi, Amiodarone x1, bicarb with ROSC. Patient noted with hypokalemia with K 2.1 at time of admission - ECHO reviewed and patient with poor EF 20% at time of admission. Repeat ECHO showed improvement to 50% - cardiac cath done 09/17/18, no significant stenosis 2. Fibromuscular dysplasia- stable - discussed findings with daughter and patient and need for follow up with PCP and Neurology as outpatient - seen on CT angio of the brain - Also likely the underlying cause of patient's blood pressure issues as she likely has the effects of the fibromuscular dysplasia throughout her body including the renal arteries - Aneurysm also seen on the CT angios of the brain likely 2/2 to fibromusclar dysplasia, partially calcified, likely not a surgical candidate due to calcification however patient will likely need very close follow-up with a neurologist with repeated scans and possible further intervention if deemed necessary 3. Acute hypoxic respiratory failure- resolving - No acute respiratory issues appreciated - Pulm on board and appreciate consultation - wean O2 as tolerated 4. Septic shock secondary to aspiration pneumonia- improving - Completed course of antibiotics - remains afebrile with normal WBC 5. Transaminitis- resolved - most likely secondary to hypoperfusion 6. HTN - stable 7. JULISSA- resolving - Nephrology consultation appreciated. continue on lasix 8. Disposition - s/p AICD placement this am. Will have PT evaluate patient's ability to walk up stairs Result Diagram: 09/23/18 0539 09/24/18 0541 Subjective 24 Hr Interval Summary Free Text/Dictation Patient doing well and tolerated AICD placement this am. Discussed with family discharge planning and concerned about patient being able to climb the 20+ stairs at her home currently. Requested letter to show [employer] for relocation to [facility] community or apartment complex with elevator or unit on first floor. Exam/Review of Systems Vital Signs Vitals Vital Signs Date Temp Pulse Resp B/P (MAP) Pulse Ox O2 O2 Flow FiO2 Time Delivery Rate 09/25/18 98.2 76 17 145/80 99 Nasal 2.0 08:41 (101) Cannula 09/25/18 21 01:47 Intake and Output 09/24/18 09/24/18 09/25/18 1515:00 23:00 07:00 IntakeIntake Total 800 ml 400 ml BalanceBalance 800 ml 400 ml Exam General: Patient is laying in bed, no acute distress. answering questions appropriately Mentation: Patient is alert and oriented x4 Neck: Supple Respiratory: Clear to auscultation bilaterally. no wheezing or rhonchi Cardiovascular: regular rate and rhythm, no obvious murmurs Gastrointestinal: soft, non-tender to palpation, nondistended, bowel sounds heard. Neurological: Moves all extremities spontaneously Skin: No new skin lesions Medications Medications Current Medications Acetaminophen (Tylenol Liquid) 650 mg Q6H PRN NGT PAIN LEVEL 1-3 OR FEVER Last administered on 09/20/18at 08:39; Admin Dose 650 MG; Start 09/09/18 at 16:30 Morphine Sulfate (morphine) 2 mg Q4H PRN IV PAIN LEVEL 7-10 Last administered on 09/13/18at 10:11; Admin Dose 2 MG; Start 09/09/18 at 16:30 Miscellaneous Information 1 ea NOTE XX ; Start 09/12/18 at 04:30 Glucose (Glutose) 15 gm Q15M PRN PO DECREASED GLUCOSE; Start 09/12/18 at 04:30 Glucose (Glutose) 22.5 gm Q15M PRN PO DECREASED GLUCOSE; Start 09/12/18 at 04:30 Dextrose (D50w Syringe) 25 ml Q15M PRN IV DECREASED GLUCOSE; Start 09/12/18 at 04:30 Dextrose (D50w Syringe) 50 ml Q15M PRN IV DECREASED GLUCOSE; Start 09/12/18 at 04:30 Glucagon (Glucagen) 1 mg Q15M PRN IM DECREASED GLUCOSE; Start 09/12/18 at 04:30 Glucose (Glutose) 15 gm Q15M PRN BUCCAL DECREASED GLUCOSE; Start 09/12/18 at 04:30 Furosemide (Lasix) 20 mg DAILY@0600 IV Last administered on 09/25/18 06:33; Admin Dose 20 MG; Start 09/14/18 at 06:00 Aspirin (Aspirin) 81 mg DAILY NGT Last administered on 09/24/18 08:21; Admin Dose 81 MG; Start 09/14/18 at 09:30 Budesonide (Pulmicort (Neb)) 0.5 mg BID RESP THERAPY HHN Last administered on 09/24/18 08:06; Admin Dose 0.5 MG; Start 09/16/18 at 20:00 Isosorbide Dinitrate (Isordil) 20 mg TID NGT Last administered on 09/24/18 21:12; Admin Dose 20 MG; Start 09/17/18 at 10:00 Albuterol/ Ipratropium (Duoneb) 3 ml Q6H RESP THERAPY HHN Last administered on 09/25/18 01:47; Admin Dose 3 ML; Start 09/18/18 at 20:00 Labetalol HCl (Labetalol) 10 mg Q4H PRN IV sbp>160 Last administered on 09/18/18 16:03; Admin Dose 10 MG; Start 09/18/18 at 14:30 Haloperidol (Haldol) 5 mg Q8 PRN IM agitation; Start 09/18/18 at 16:00 Lisinopril (Zestril) 20 mg BID NGT Last administered on 09/24/18at 21:12; Admin Dose 20 MG; Start 09/19/18 at 09:00 Acetaminophen/ Hydrocodone Bitart ([place] (5/325)) 1 tab Q4H PRN PO MODERATE PAIN LEVEL 4-6 Last administered on 09/19/18 23:17; Admin Dose 1 TAB; Start 09/19/18 at 15:00 Carvedilol (Coreg) 25 mg BID PO Last administered on 09/24/18 21:13; Admin Dose 25 MG; Start 09/20/18 at 21:00 Spironolactone (Aldactone) 50 mg DAILY NGT Last administered on 09/24/18 08:20; Admin Dose 50 MG; Start 09/21/18 at 09:00 Pantoprazole (Protonix Tab) 40 mg DAILY@06 PO Last administered on 1/23/19at 06:33; Admin Dose 40 MG; Start 09/24/18 at 06:00 Morphine Sulfate (morphine SULFATE (PF)) 1 mg Q1H PRN IV PAIN LEVEL 6-10; Start 09/25/18 at 09:00 Cefazolin Sodium 50 ml @ 100 mls/hr Q8 IVPB ; Start 09/25/18 at 14:00; Stop 09/26/18 at 06:29 OZZIE ALVAREZ MD Sep 25, 2018 09:20
--- NOTE | 2018-09-25 09:26 | NUR ---
PACU TRANSFERRED TO 50 IN STABLE COND. SP ICD PLACEMENT. LEFT CHEST PRESSURE DSG DRY/INTACT. PAIN 0/10 PER PT. COLD COMPRESS TO LEFT CHEST. REPORT GIVEN TO MS DELGADO. Addendum: 09/25/18 at 1352 by CHRIS KNOX RN Amended: Links added.
[2018-09-25] MEDS: ISOSORBIDE DINITRATE 20 MG TAB NGT SCH ×3 (09:47→20:04)
[2018-09-25] MEDS: ASPIRIN 81 MG TAB NGT SCH (09:47)
[2018-09-25] MEDS: SPIRONOLACTONE 50 MG TAB NGT SCH (09:47)
[2018-09-25] MEDS: LISINOPRIL 20 MG TAB NGT SCH ×2 (09:48→20:05)
--- NOTE | 2018-09-25 10:20 | NUR ---
Nurses Note: Pt. off unit. AICD placement with Dr. Graham. Addendum: 09/25/18 at 1020 by CHEIKH PAREKH RN Amended: Links added.
--- NOTE | 2018-09-25 10:45 | CONS ---
Assessment/Plan Assessment/Plan Assessment/Plan Assessment and recommendations; 1. Patient initially admitted with cardiac arrest due to severe hypokalemia causing ventricular fibrillation, status post successful revival. Status post extubation with marked overall clinical improvement. 2. Complete resolution of extensive right-sided pneumonia. 3. Status post implantable defibrillator placement. 4. Mild anemia. Continue current supportive care. Okay to discharge from pulmonary perspective. Result Diagram: 09/23/18 0539 09/24/18 0541 Consultation Date/Type/Reason Admit Date/Time Sep 09, 2018 at 16:10 Initial Consult Date 09/10/18 Type of Consult Pulmonary/critical care History of presenting illness; patient is a 63-year-old lady who was brought into the hospital after found unresponsive. Patient underwent CPR and was in V. fib. Patient was successfully resuscitated intubated and transferred to ICU. By the time I saw her, patient is on mechanical ventilation and on hypothermia protocol. Patient also has remained hypotensive and on high-dose pressor support. Past medical history; 1. Hypertension. Medications; reviewed. Patient is currently on Versed 2 mg/h, fentanyl 50 mics per hour, Levophed 24 mics per minute, insulin drip 0.5 units/h, patient also is on hypothermia protocol with dialysis per protocol. Allergies; unknown. Family history, social history, occupational history is not available. Review of system; unable to be obtained. General exam; elderly female, orally intubated, paralyzed and sedated. Currently no distress. Requesting Provider: OZZIE ALVAREZ MD 24 HR Interval Summary Free Text/Dictation Patient's condition is stable. Underwent pacemaker placement. Denies any shortness or, chest pain. General exam; elderly female, awake alert, currently no distress. Exam/Review of Systems Vital Signs Vitals Vital Signs Date Temp Pulse Resp B/P (MAP) Pulse Ox O2 O2 Flow FiO2 Time Delivery Rate 09/25/18 98.4 73 18 140/77 94 09:31 (98) 09/25/18 Nasal 2.0 08:41 Cannula 09/25/18 21 01:47 Intake and Output 09/24/18 09/24/18 09/25/18 1515:00 23:00 07:00 IntakeIntake Total 800 ml 400 ml BalanceBalance 800 ml 400 ml Exam H EENT exam; supple neck, no JVD. No lymphadenopathy. Midline trachea. No thyromegaly. Patient has fair dentition. No neck masses. Chest exam; clear to auscultation. S1-S2 audible, no murmurs. Regular rhythm. Pacemaker in left chest wall. Abdomen exam; soft, no organomegaly. Nontender. Bowel sounds audible. Extremity exam; no peripheral edema or clubbing. [employer] exam; no focal deficit. Medications Medications Current Medications Acetaminophen (Tylenol Liquid) 650 mg Q6H PRN NGT PAIN LEVEL 1-3 OR FEVER Last administered on 09/20/18at 08:39; Admin Dose 650 MG; Start 09/09/18 at 16:30 Morphine Sulfate (morphine) 2 mg Q4H PRN IV PAIN LEVEL 7-10 Last administered on 09/13/18at 10:11; Admin Dose 2 MG; Start 09/09/18 at 16:30 Miscellaneous Information 1 ea NOTE XX ; Start 09/12/18 at 04:30 Glucose (Glutose) 15 gm Q15M PRN PO DECREASED GLUCOSE; Start 09/12/18 at 04:30 Glucose (Glutose) 22.5 gm Q15M PRN PO DECREASED GLUCOSE; Start 09/12/18 at 04:30 Dextrose (D50w Syringe) 25 ml Q15M PRN IV DECREASED GLUCOSE; Start 09/12/18 at 04:30 Dextrose (D50w Syringe) 50 ml Q15M PRN IV DECREASED GLUCOSE; Start 09/12/18 at 04:30 Glucagon (Glucagen) 1 mg Q15M PRN IM DECREASED GLUCOSE; Start 09/12/18 at 04:30 Glucose (Glutose) 15 gm Q15M PRN BUCCAL DECREASED GLUCOSE; Start 09/12/18 at 04:30 Furosemide (Lasix) 20 mg DAILY@0600 IV Last administered on 09/25/18at 06:33; Admin Dose 20 MG; Start 09/14/18 at 06:00 Aspirin (Aspirin) 81 mg DAILY NGT Last administered on 09/25/18at 09:47; Admin Dose 81 MG; Start 09/14/18 at 09:30 Budesonide (Pulmicort (Neb)) 0.5 mg BID RESP THERAPY HHN Last administered on 09/24/18at 08:06; Admin Dose 0.5 MG; Start 09/16/18 at 20:00 Isosorbide Dinitrate (Isordil) 20 mg TID NGT Last administered on 09/25/18 09:47; Admin Dose 20 MG; Start 09/17/18 at 10:00 Albuterol/ Ipratropium (Duoneb) 3 ml Q6H RESP THERAPY HHN Last administered on 09/25/18 01:47; Admin Dose 3 ML; Start 09/18/18 at 20:00 Labetalol HCl (Labetalol) 10 mg Q4H PRN IV sbp>160 Last administered on 09/18/18 16:03; Admin Dose 10 MG; Start 09/18/18 at 14:30 Haloperidol (Haldol) 5 mg Q8 PRN IM agitation; Start 09/18/18 at 16:00 Lisinopril (Zestril) 20 mg BID NGT Last administered on 09/25/18 09:48; Admin Dose 20 MG; Start 09/19/18 at 09:00 Acetaminophen/ Hydrocodone Bitart ([place] (5/325)) 1 tab Q4H PRN PO MODERATE PAIN LEVEL 4-6 Last administered on 09/19/18at 23:17; Admin Dose 1 TAB; Start 09/19/18 at 15:00 Carvedilol (Coreg) 25 mg BID PO Last administered on 09/25/18 09:47; Admin Dose 25 MG; Start 09/20/18 at 21:00 Spironolactone (Aldactone) 50 mg DAILY NGT Last administered on 09/25/18 09:47; Admin Dose 50 MG; Start 09/21/18 at 09:00 Pantoprazole (Protonix Tab) 40 mg DAILY@06 PO Last administered on 09/25/18at 06:33; Admin Dose 40 MG; Start 09/24/18 at 06:00 Morphine Sulfate (morphine SULFATE (PF)) 1 mg Q1H PRN IV PAIN LEVEL 6-10; Start 09/25/18 at 09:00 Cefazolin Sodium 50 ml @ 100 mls/hr Q8 IVPB ; Start 09/25/18 at 14:00; Stop 09/26/18 at 06:29 Date/Time of Note Date/Time of Note DATE: 09/25/18 TIME: 10:42 ANABELLA LANTIGUA Sep 25, 2018 10:45
--- NOTE | 2018-09-25 11:31 | NUR ---
CM Notes: [facility] provided auth # for hospital stay [id number], this principal technical writer informed [facility] patient will need SNF placement as the patient has 20 stairs at home and per daughter lives alone, [facility] to fax approved SNF facilities capitated to the [facility] which patients insurance belongs to. THis principal technical writer faxed clinicals to [facility] /[facility] ( / , [employer] transport to be used when ready to transport . Shahida Willis RNCM
[2018-09-25] MEDS: CEFAZOLIN 1 GM/50 ML (PMX) 50 ML IVPB SCH ×2 (13:44→22:42)
--- NOTE | 2018-09-25 14:25 | CONS ---
Assessment/Plan Assessment/Plan Hospital Course No acute changes, sleeping, no fevers antimicrobials: none s/p Vancomycin, Zosyn Physical examination: This is well-developed well-nourished elderly - [place] woman who is intubated sedated in no distress. Head atraumatic normocephalic sclera nonicteric. Neck is supple. Chest rise symmetrical breath sounds clear, diminished bases. Heart: S1-S2. Abdomen soft, bowel sounds present. Extremities without cyanosis. Assessment: 1. S/p sepsis 2. S/p Pneumonia 3. Status post cardiopulmonary arrest 4. Hypertension 5. S/p resp failure==> extubated Plan: Remains stable, s/p AICD, cardiology recommendations Result Diagram: 09/23/18 0539 09/24/18 0541 Consultation Date/Type/Reason Admit Date/Time Sep 09, 2018 at 16:10 Initial Consult Date 09/10/18 Type of Consult id Requesting Provider: OZZIE ALVAREZ MD Exam/Review of Systems Vital Signs Vitals Vital Signs Date Temp Pulse Resp B/P (MAP) Pulse Ox O2 O2 Flow FiO2 Time Delivery Rate 09/25/18 79 12:07 09/25/18 97.6 18 102/55 95 Nasal 11:33 (71) Cannula 09/25/18 2.0 09:12 09/25/18 21 01:47 Intake and Output 09/24/18 09/24/18 09/25/18 1515:00 23:00 07:00 IntakeIntake Total 800 ml 400 ml BalanceBalance 800 ml 400 ml Medications Medications Current Medications Acetaminophen (Tylenol Liquid) 650 mg Q6H PRN NGT PAIN LEVEL 1-3 OR FEVER Last administered on 09/20/18at 08:39; Admin Dose 650 MG; Start 09/09/18 at 16:30 Morphine Sulfate (morphine) 2 mg Q4H PRN IV PAIN LEVEL 7-10 Last administered on 09/13/18at 10:11; Admin Dose 2 MG; Start 09/09/18 at 16:30 Miscellaneous Information 1 ea NOTE XX ; Start 09/12/18 at 04:30 Glucose (Glutose) 15 gm Q15M PRN PO DECREASED GLUCOSE; Start 09/12/18 at 04:30 Glucose (Glutose) 22.5 gm Q15M PRN PO DECREASED GLUCOSE; Start 09/12/18 at 04:30 Dextrose (D50w Syringe) 25 ml Q15M PRN IV DECREASED GLUCOSE; Start 09/12/18 at 04:30 Dextrose (D50w Syringe) 50 ml Q15M PRN IV DECREASED GLUCOSE; Start 09/12/18 at 04:30 Glucagon (Glucagen) 1 mg Q15M PRN IM DECREASED GLUCOSE; Start 09/12/18 at 04:30 Glucose (Glutose) 15 gm Q15M PRN BUCCAL DECREASED GLUCOSE; Start 09/12/18 at 04:30 Furosemide (Lasix) 20 mg DAILY@0600 IV Last administered on 09/25/18 06:33; Admin Dose 20 MG; Start 09/14/18 at 06:00 Aspirin (Aspirin) 81 mg DAILY NGT Last administered on 09/25/18 09:47; Admin Dose 81 MG; Start 09/14/18 at 09:30 Budesonide (Pulmicort (Neb)) 0.5 mg BID RESP THERAPY HHN Last administered on 09/24/18 08:06; Admin Dose 0.5 MG; Start 09/16/18 at 20:00 Isosorbide Dinitrate (Isordil) 20 mg TID NGT Last administered on 09/25/18 09:47; Admin Dose 20 MG; Start 09/17/18 at 10:00 Albuterol/ Ipratropium (Duoneb) 3 ml Q6H RESP THERAPY HHN Last administered on 09/25/18 01:47; Admin Dose 3 ML; Start 09/18/18 at 20:00 Labetalol HCl (Labetalol) 10 mg Q4H PRN IV sbp>160 Last administered on 09/18/18at 16:03; Admin Dose 10 MG; Start 09/18/18 at 14:30 Haloperidol (Haldol) 5 mg Q8 PRN IM agitation; Start 09/18/18 at 16:00 Lisinopril (Zestril) 20 mg BID NGT Last administered on 09/25/18 09:48; Admin Dose 20 MG; Start 09/19/18 at 09:00 Acetaminophen/ Hydrocodone Bitart ([place] (5/325)) 1 tab Q4H PRN PO MODERATE PAIN LEVEL 4-6 Last administered on 09/19/18 23:17; Admin Dose 1 TAB; Start 09/19/18 at 15:00 Carvedilol (Coreg) 25 mg BID PO Last administered on 09/25/18at 09:47; Admin Dose 25 MG; Start 09/20/18 at 21:00 Spironolactone (Aldactone) 50 mg DAILY NGT Last administered on 09/25/18at 09:47; Admin Dose 50 MG; Start 09/21/18 at 09:00 Pantoprazole (Protonix Tab) 40 mg DAILY@06 PO Last administered on 09/25/18at 06:33; Admin Dose 40 MG; Start 09/24/18 at 06:00 Morphine Sulfate (morphine SULFATE (PF)) 1 mg Q1H PRN IV PAIN LEVEL 6-10; Start 09/25/18 at 09:00 Cefazolin Sodium 50 ml @ 100 mls/hr Q8 IVPB ; Start 09/25/18 at 14:00; Stop 09/26/18 at 06:29 Date/Time of Note Date/Time of Note DATE: 09/25/18 TIME: 14:24 MICHELLE RECINOS NP Sep 25, 2018 14:25
--- NOTE | 2018-09-25 15:05 | NUR ---
OT NOTE PT requires new OT order due to AICD placement.
--- NOTE | 2018-09-25 16:22 | NUR ---
PT NOTE Pt s/p AICD placement. Will need new PT orders to continue PT.
--- NOTE | 2018-09-25 18:11 | NUR ---
EOSS: Pt. S/P AICD placement today with Dr. Graham. Pressure dressing removed at [address] barnard. Pt. did not complain of discomfort or pain during shift. Educated pt. regarding use Arm Sling. Instructed pt to keep the arm sling on for 3 weeks. No pain medication was given during shift. Vital signs stable. No SOB. NO CP. Hourly rounding complete. All needs meet. Will continue to monitor and report care to oncoming shift.
[2018-09-25] MEDS ORDERED: morphine LIQ (10 MG/5 ML) CUP PO PRN (23:00)
[2018-09-26] VITALS (11 sets, daily range): BP systolic 113–136; BP diastolic 57–85; PULSE 77–93; RESP 18–22
[2018-09-26] MEDS: ALBUTEROL/IPRATROPIUM (NEB) 3 ML AMP HHN SCH ×4 (02:06→19:50)
[2018-09-26] MEDS: PANTOPRAZOLE (EC) 40 MG TAB PO SCH (05:56)
[2018-09-26] MEDS: CEFAZOLIN 1 GM/50 ML (PMX) 50 ML IVPB SCH (05:56)
[2018-09-26] MEDS: FUROSEMIDE 20 MG INJ IV SCH (05:56)
[2018-09-26] MEDS: LABETALOL HCL 20MG INJ IV PRN (05:59)
--- NOTE | 2018-09-26 06:33 | NUR ---
end of shift note: received pt post ACID placement, dressing is dry and intact, BP in the morning was in 160s, one dose of PRN labetalol given and SBP went down to 130s, otherwise no acute distress overnight, continue to monitor pt
[2018-09-26] MEDS: ISOSORBIDE DINITRATE 20 MG TAB NGT SCH ×3 (08:09→20:44)
[2018-09-26] MEDS: SPIRONOLACTONE 50 MG TAB NGT SCH (08:09)
[2018-09-26] MEDS: LISINOPRIL 20 MG TAB NGT SCH ×2 (08:09→20:44)
[2018-09-26] MEDS: ASPIRIN 81 MG TAB NGT SCH (08:10)
[2018-09-26] MEDS: BUDESONIDE (NEB) 0.5MG/2ML AMP HHN SCH ×2 (08:17→20:05)
--- NOTE | 2018-09-26 08:48 | CONS ---
Date/Time of Note Date/Time of Note DATE: 09/26/18 TIME: 08:46 Consult Date/Type/Reason Admit Date/Time Sep 09, 2018 at 16:10 Initial Consult Date 09/10/18 Type of Consultation: cv Requesting Provider: OZZIE ALVAREZ MD Subjective Interventional cardiology follow-up progress note/critical care note Subjective: Case discussed with the staff and rhythm was reviewed. Patient remains in sinus rhythm . no VT. BP is stable/ low now she feels well and has minimal chest wall tenderness only events noted 09/17/18: [facility] iva shows no significant obstructive coronary artery disease ICD 09/25/18 O: General: no acute distress HEENT: NC/AT. pupils are equal. round. NECK: no stridor. CV: RRR. systolic murmur; no gallop or rubs. PULM: no wheezing min rhonchi in the right side. GI: SOFT, NT, ND, no rebound or guarding Extremity: trace B/L LE edema. no clubbing. neuro: awake and alert Ox 3 Psych: calm rectal: deferred Right femoral artery with no bleeding or hematoma chest s/p ICD with no hematoma or bleeding CXR 09/16/18: Since the prior study, there has been no significant interval change in the appearance of the heart or lungs or position of tubes and lines allowing for slight differences in technique and positioning.. Tubes and lines remain in good position. Right lung infiltrate is again seen with slight fluid in the minor fissure. The left lung remains relatively clear. echo reviewed Normal left ventricular cavity size. Moderate concentric left ventricular hypertrophy. Severe global left ventricular systolic dysfunction. Ejection fraction is visually estimated at 20 %. Mitral valve leaflets appear mildly thickened. Mild mitral annular calcification. Trace mitral regurgitation. No significant aortic stenosis or insufficiency. Aortic cusps appear mildly calcified. Normal appearance of the tricuspid valve. Estimated peak PA systolic pressure 27 mmHg. There is mild tricuspid regurgitation. Dilated IVC without respiratory collapse, however, patient on ventilator. ECHO 09/17/18 reviewed personally: Lower limits of normal systolic function. Normal left ventricular cavity size. Mild concentric left ventricular hypertrophy. Paradoxical septal motion consistent with IVCD or bundle branch block. Ejection fraction is visually estimated at 50 %. Tissue Doppler/Mitral Doppler indices are consistent with impaired relaxation (Stage I diastolic dysfunction). Compared to echo done on September 10, 2018 ejection fraction has significantly improved now. Mitral valve leaflets appear mildly thickened. Mild mitral annular calcification. Trace mitral regurgitation. Aortic sclerosis without significant stenosis. Trace aortic valve regurgitation. Normal appearance of the tricuspid valve. Estimated peak PA systolic pressure 33 mmHg. There is mild tricuspid regurgitation. Dilated IVC without respiratory collapse, however, patient on ventilator. Objective Vital Signs Date Temp Pulse Resp B/P (MAP) Pulse Ox O2 O2 Flow FiO2 Time Delivery Rate 09/26/18 86 20 96 Nasal 2.0 08:17 Cannula 09/26/18 97.8 133/85 07:17 (101) 09/26/18 28 02:06 Intake and Output 09/25/18 09/25/18 09/26/18 1515:00 23:00 07:00 IntakeIntake Total 625 ml 580 ml BalanceBalance 625 ml 580 ml Results/Medications Result Diagram: 09/23/18 0539 09/26/18 0555 Results 24 hrs Laboratory Tests Test 09/26/18 05:55 Sodium Level 143 Potassium Level 4.5 Chloride Level 103 Carbon Dioxide Level 31 Anion Gap 9 Blood Urea Nitrogen 14 Creatinine 1.00 Glucose Level 97 Calcium Level 9.5 Phosphorus Level 3.9 Magnesium Level 2.1 Albumin 3.6 Medications Current Medications Acetaminophen (Tylenol Liquid) 650 mg Q6H PRN NGT PAIN LEVEL 1-3 OR FEVER Last administered on 09/20/18at 08:39; Admin Dose 650 MG; Start 09/09/18 at 16:30 Miscellaneous Information 1 ea NOTE XX ; Start 09/12/18 at 04:30 Glucose (Glutose) 15 gm Q15M PRN PO DECREASED GLUCOSE; Start 09/12/18 at 04:30 Glucose (Glutose) 22.5 gm Q15M PRN PO DECREASED GLUCOSE; Start 09/12/18 at 04:30 Dextrose (D50w Syringe) 25 ml Q15M PRN IV DECREASED GLUCOSE; Start 09/12/18 at 04:30 Dextrose (D50w Syringe) 50 ml Q15M PRN IV DECREASED GLUCOSE; Start 09/12/18 at 04:30 Glucagon (Glucagen) 1 mg Q15M PRN IM DECREASED GLUCOSE; Start 09/12/18 at 04:30 Glucose (Glutose) 15 gm Q15M PRN BUCCAL DECREASED GLUCOSE; Start 09/12/18 at 04:30 Furosemide (Lasix) 20 mg DAILY@0600 IV Last administered on 09/26/18 05:56; Admin Dose 20 MG; Start 09/14/18 at 06:00 Aspirin (Aspirin) 81 mg DAILY NGT Last administered on 09/26/18 08:10; Admin Dose 81 MG; Start 09/14/18 at 09:30 Budesonide (Pulmicort (Neb)) 0.5 mg BID RESP THERAPY HHN Last administered on 09/26/18 08:17; Admin Dose 0.5 MG; Start 09/16/18 at 20:00 Isosorbide Dinitrate (Isordil) 20 mg TID NGT Last administered on 09/26/18 08:09; Admin Dose 20 MG; Start 09/17/18 at 10:00 Albuterol/ Ipratropium (Duoneb) 3 ml Q6H RESP THERAPY HHN Last administered on 09/26/18 08:17; Admin Dose 3 ML; Start 09/18/18 at 20:00 Labetalol HCl (Labetalol) 10 mg Q4H PRN IV sbp>160 Last administered on 09/26/18 05:59; Admin Dose 10 MG; Start 09/18/18 at 14:30 Haloperidol (Haldol) 5 mg Q8 PRN IM agitation; Start 09/18/18 at 16:00 Lisinopril (Zestril) 20 mg BID NGT Last administered on 09/26/18 08:09; Admin Dose 20 MG; Start 09/19/18 at 09:00 Acetaminophen/ Hydrocodone Bitart ([place] (5/325)) 1 tab Q4H PRN PO MODERATE PAIN LEVEL 4-6 Last administered on 09/19/18 23:17; Admin Dose 1 TAB; Start 09/19/18 at 15:00 Carvedilol (Coreg) 25 mg BID PO Last administered on 09/26/18 08:10; Admin Dose 25 MG; Start 09/20/18 at 21:00 Spironolactone (Aldactone) 50 mg DAILY NGT Last administered on 09/26/18 08:09; Admin Dose 50 MG; Start 09/21/18 at 09:00 Pantoprazole (Protonix Tab) 40 mg DAILY@06 PO Last administered on 09/26/18 05:56; Admin Dose 40 MG; Start 09/24/18 at 06:00 Morphine Sulfate (morphine SULFATE (PF)) 1 mg Q1H PRN IV PAIN LEVEL 6-10; Start 09/25/18 at 09:00 Morphine Sulfate (morphine) 6 mg Q4H PRN PO SEVERE PAIN LEVEL 7-10; Start 09/25/18 at 23:00 Assessment/Plan Chief Complaint/Hosp Course 1. Status post cardiopulmonary arrest, s/p st [facility] MRI compatible ICD 09/25/18 2. Hypoxemic hypercapnic respiratory failure status post intubation on the vent: now extubated 3. Right lung infiltrate consistent with pneumonia possible aspiration pneumonia 4. s/p VF/ V. tach arrest: 5. Encephalopathy 6. Severe lactic acidosis: resolved 7. Hyperglycemia: resolved 8. Transaminitis 9. Severe hypokalemia: corrected 10. Positive troponin consistent with NSTEMI; however, given the fact that patient had normal coronaries this most likely secondary to CPR and cardiopulmonary arrest and not true [place] 11. Cardiomyopathy and hypertensive heart disease: EF improved from 20%now up to 50% 12. JULISSA : improved now 13. thrombocytopenia:resolved now 14. Anemia; s/p transfusion Recommendations: ICD was interrogated and personally reviewed which is normal functioning ICD Antibiotic management will be deferred to internal medicine/pulmonary team Repeat echo has shown significant improvement in LV systolic function. off hydralazine due to hypotension ( it has been held due to hypotension). cont lisinopril and Aldactone and coreg . pt may have secondary HTN due to hyperaldosteronism or renal artery stenosis. ASA is on hold now Okay to discharge from cardiac standpoint. Patient however needs to follow with me for an ICD check in post hospital follow-up in about 7-10 days. My information has been given to the patient and family Thank you for his referral. We will continue to follow along with you DEMETRIUS MCCRAY MD [facility] DEMETRIUS MCCRAY MD Sep 26, 2018 08:48
--- NOTE | 2018-09-26 10:35 | CONS ---
Date/Time of Note Date/Time of Note DATE: 09/26/18 TIME: 10:34 Consult Date/Type/Reason Admit Date/Time Sep 09, 2018 at 16:10 Initial Consult Date 09/10/18 Type of Consultation: Pulmonary ICU Requesting Provider: OZZIE ALVAREZ MD Subjective Patient remained stable following AICD placement. Objective Vital Signs Date Temp Pulse Resp B/P (MAP) Pulse Ox O2 O2 Flow FiO2 Time Delivery Rate 09/26/18 86 20 96 Nasal 2.0 08:17 Cannula 09/26/18 97.8 133/85 07:17 (101) 09/26/18 28 02:06 Intake and Output 09/25/18 09/25/18 09/26/18 1515:00 23:00 07:00 IntakeIntake Total 625 ml 580 ml BalanceBalance 625 ml 580 ml Exam GENERAL: VITAL SIGNS: per chart NECK: Supple. No JVD or lymphadenopathy. CARDIAC EXAM: S1, S2. No added sounds or murmurs. CHEST: clear bilaterally, No added sounds, rales or wheezes ABDOMEN: Soft, nontender. No guarding or rebound. EXTREMITIES: No cyanosis, clubbing or edema. NEUROLOGIC: Generalized weakness. No focal deficits. Results/Medications Result Diagram: 09/23/18 0539 09/26/18 0555 Results 24 hrs Laboratory Tests Test 09/26/18 05:55 Sodium Level 143 Potassium Level 4.5 Chloride Level 103 Carbon Dioxide Level 31 Anion Gap 9 Blood Urea Nitrogen 14 Creatinine 1.00 Glucose Level 97 Calcium Level 9.5 Phosphorus Level 3.9 Magnesium Level 2.1 Albumin 3.6 Medications Current Medications Acetaminophen (Tylenol Liquid) 650 mg Q6H PRN NGT PAIN LEVEL 1-3 OR FEVER Last administered on 09/20/18at 08:39; Admin Dose 650 MG; Start 09/09/18 at 16:30 Miscellaneous Information 1 ea NOTE XX ; Start 09/12/18 at 04:30 Glucose (Glutose) 15 gm Q15M PRN PO DECREASED GLUCOSE; Start 09/12/18 at 04:30 Glucose (Glutose) 22.5 gm Q15M PRN PO DECREASED GLUCOSE; Start 09/12/18 at 04:30 Dextrose (D50w Syringe) 25 ml Q15M PRN IV DECREASED GLUCOSE; Start 09/12/18 at 04:30 Dextrose (D50w Syringe) 50 ml Q15M PRN IV DECREASED GLUCOSE; Start 09/12/18 at 04:30 Glucagon (Glucagen) 1 mg Q15M PRN IM DECREASED GLUCOSE; Start 09/12/18 at 04:30 Glucose (Glutose) 15 gm Q15M PRN BUCCAL DECREASED GLUCOSE; Start 09/12/18 at 04:30 Furosemide (Lasix) 20 mg DAILY@0600 IV Last administered on 09/26/18 05:56; Admin Dose 20 MG; Start 09/14/18 at 06:00 Aspirin (Aspirin) 81 mg DAILY NGT Last administered on 09/26/18 08:10; Admin Dose 81 MG; Start 09/14/18 at 09:30 Budesonide (Pulmicort (Neb)) 0.5 mg BID RESP THERAPY HHN Last administered on 09/26/18 08:17; Admin Dose 0.5 MG; Start 09/16/18 at 20:00 Isosorbide Dinitrate (Isordil) 20 mg TID NGT Last administered on 09/26/18 08:09; Admin Dose 20 MG; Start 09/17/18 at 10:00 Albuterol/ Ipratropium (Duoneb) 3 ml Q6H RESP THERAPY HHN Last administered on 09/26/18 08:17; Admin Dose 3 ML; Start 09/18/18 at 20:00 Labetalol HCl (Labetalol) 10 mg Q4H PRN IV sbp>160 Last administered on 09/26/18 05:59; Admin Dose 10 MG; Start 09/18/18 at 14:30 Haloperidol (Haldol) 5 mg Q8 PRN IM agitation; Start 09/18/18 at 16:00 Lisinopril (Zestril) 20 mg BID NGT Last administered on 09/26/18 08:09; Admin Dose 20 MG; Start 09/19/18 at 09:00 Acetaminophen/ Hydrocodone Bitart ([place] (5/325)) 1 tab Q4H PRN PO MODERATE PAIN LEVEL 4-6 Last administered on 09/19/18 23:17; Admin Dose 1 TAB; Start 09/19/18 at 15:00 Carvedilol (Coreg) 25 mg BID PO Last administered on 09/26/18 08:10; Admin Dose 25 MG; Start 09/20/18 at 21:00 Spironolactone (Aldactone) 50 mg DAILY NGT Last administered on 09/26/18at 08:09; Admin Dose 50 MG; Start 09/21/18 at 09:00 Pantoprazole (Protonix Tab) 40 mg DAILY@06 PO Last administered on 09/26/18at 05:56; Admin Dose 40 MG; Start 09/24/18 at 06:00 Morphine Sulfate (morphine SULFATE (PF)) 1 mg Q1H PRN IV PAIN LEVEL 6-10; Start 09/25/18 at 09:00 Morphine Sulfate (morphine) 6 mg Q4H PRN PO SEVERE PAIN LEVEL 7-10; Start 09/25/18 at 23:00 Assessment/Plan Chief Complaint/Hosp Course assessment 1. Status post cardiopulmonary arrest 2. Resolving toxic metabolic encephalopathy 3. Postarrest mild neuromuscular weakness discussed with staff at bedside 4. Probable aspiration pneumonia 5. Resolving acute renal failure likely ATN 6. Anemia likely dilutional no evidence of acute GI bleed Plan 1. Stable post AICD placement 2. PT eval recs for precautions 3. Aspiration precautions DC planning GERARDO INMAN MD, [facility] Sep 26, 2018 10:35
--- NOTE | 2018-09-26 10:41 | NUR ---
OT EVAL: Emily Elmore is a 63-year-old female who presented to the Emergency Room with a witnessed cardiac arrest on the street. She was in ventricular fibrillation, was defibrillated twice by EMS and treated with epinephrine 1 mg IV. She arrived to the Emergency Room in V-fib, was immediately intubated without any difficulty. Pt is currently s/p AICD placement. PLOF: Pt reports living in a first floor apartment with a few steps to enter. Pt states she lives alone and was independent with all ADL's prior to hospitalization. Pt ambulated without any DME. CLOF: RN cleared pt for OT tx. Pt received supine in bed and agreeable to tx. Pt is AOx4, and stated 0/10 pain. Pt demonstrated functional mob and toilet transfer with SBA without any DME. Pt donned socks and stood at bathroom sink while performing h/g tasks. Pt started to report symptoms of dizziness and OT instructed pt to lay down. RN informed and vitals appeared stable. Pt drank some water and felt better. Pt instructed to rest before further therapy today. Pt will benefit from skilled OT tx 1x daily for 3-5x week to increase strength, endurance, balance, safety awareness, and increased independence with self care. D/C to be determined based on progress.
--- NOTE | 2018-09-26 12:20 | CONS ---
Assessment/Plan Assessment/Plan Hospital Course (Demo Recall) Remained stable overnight, no acute events, looks comfortable antimicrobials: none s/p Vancomycin, Zosyn Physical examination: This is well-developed well-nourished elderly -[place] woman who is intubated sedated in no distress. Head atraumatic normocephalic sclera nonicteric. Neck is supple. Chest rise symmetrical breath sounds clear, diminished bases. Heart: S1-S2. Abdomen soft, bowel sounds present. Extremities without cyanosis. Assessment: 1. S/p sepsis 2. S/p Pneumonia 3. Status post cardiopulmonary arrest 4. Hypertension 5. S/p resp failure==> extubated Plan: Remains stable, s/p AICD, continue present care, cardiology/pulmonary recommendations Consultation Date/Type/Reason Admit Date/Time Sep 09, 2018 at 16:10 Initial Consult Date 09/10/18 Type of Consult id Requesting Provider: OZZIE ALVAREZ MD Date/Time of Note DATE: 09/26/18 TIME: 12:19 Exam/Review of Systems Exam Vitals Vital Signs Date Temp Pulse Resp B/P (MAP) Pulse Ox O2 O2 Flow FiO2 Time Delivery Rate 09/26/18 97.6 84 19 113/58 96 Room Air 12:02 (76) 09/26/18 2.0 08:17 09/26/18 28 02:06 Intake and Output 09/25/18 09/25/18 09/26/18 1515:00 23:00 07:00 IntakeIntake Total 625 ml 580 ml BalanceBalance 625 ml 580 ml Results Result Diagram: 09/23/18 0539 09/26/18 0555 Results 24hrs Laboratory Tests Test 09/26/18 05:55 Sodium Level 143 Potassium Level 4.5 Chloride Level 103 Carbon Dioxide Level 31 Anion Gap 9 Blood Urea Nitrogen 14 Creatinine 1.00 Glucose Level 97 Calcium Level 9.5 Phosphorus Level 3.9 Magnesium Level 2.1 Albumin 3.6 MICHELLE RECINOS NP Sep 26, 2018 12:20
--- NOTE | 2018-09-26 14:30 | NUR ---
PT JUNE[facility]ZA [facility] Patient: Emily Elmore : 1955 Age/Sex: 63/F Unit#: [id number] Room/Bed: 7/A User: Jasvir Ardon PT Date: 09/26/18 14:26 Type: PT Technical Record Therapy day number 1 Evaluation Start Time 13:30 Evaluation Total Time 0 min Subjective Denies pain Pain Scale NUMERIC Pain Intensity 0 (0-10) Patient Stated Goal for Pain Relief 0 (0-10) Pain Level Comment denies pain Pre Treatment Vital Signs Stable Yes - 107/52, 76bpm, 95%O2 sats on RA Supine to Sit Modified Independent Transfer Sit to Stand Ability Supervised Bed Mobility Sit to Supine Modified Independent Bed Transfer Ability Stand by Assist Chair Transfer Ability Stand by Assist Sitting Tolerance 15 min Additional Mobility Comments L arm in sling Patient uses wheelchair Not Applicable Gait Assist Levels Contact Guard Assist Assistive Devices Single Point Cane Ambulation Distance 250 feet Additional Gait Comments 200' without AD; 250' with SPC - see PT note for details Stair Climbing Ability Contact Guard Assist Number of Stairs 14 Stairs Additional Stairs Assist Comments 14 steps x 2 with rest break in between using R railing; see PT note for de Static Sitting Balance Good Dynamic Sitting Balance Good Standing Static Balance Fair plus Dynamic Standing Balance Fair plus Additional Balance Assessments Comments SPC Safety Judgement Fair Activity Tolerance Good Additional Equipment Present L arm sling Post Treatment Pain Intensity 0 0-10 Variance Documentation SEE PT RE-EVAL PT Technical Record Comment PT RE-EVAL Pt is a 63 yo F with PMH of HTN who presented to ED with full cardiac arrest after pt found [facility] in Vfib arrest due to hypokalemia. Pt subsequently intubated on 09/10/18. Pt extubated on 09/18/18. Pt was beeing seen by PT until underwent AICD on 09/25/18. Pt received in 5W, telemetry. PLOF: Pt lives alone in 2nd floor apartment with no elevator access, reportedly 16-20 steps to enter with railings B. Pt was I with ADLs/mobility without AD and does not own any DME. Apparently pt works for [employer]. CLOF: Pt received semi-supine in bed, vitals assessed and stable, family at bedside, agreeable to PT re-evaluation. Noted PT with L arm sling s/p AICD. Pt educated in precautions following AICD and use of arm sling for 2 weeks. Bed mobility, transfer, gait, and stair assessment as described above. Noted with gait without AD, high guard, steps crossing midline occassionally, mild LOBs throughout though able to self correct, reaching for wall railings, etc. Gait training with SPC noted improved gait quality and balance, though still with mild instability. Stair trainin steps x 2 using unilateral railing, pt educated in step-to gait pattern, VC for sequencing and safety. Pt returned to bed, all needs in reach,no signs of distress. architect manager informed of pt's progress with stairs and improved gait with SPC. RN notified of pt's status. Recommendation: Pt demonstrates significant improvement in overall strength, endurance, and balance. Pt continues to demonstrate mild balance deficits during amb without AD; improved gait quality when using of SPC. Pt able to ascend and descend stairs though requires occasional verbal cues for safety. Pt still with periods of impulsivity, requires cues to return to task/safety. Pt will benefit from further skilled PT during LOS to improve safety awareness and balance. D/c recommendation pending pt progress, post-acute setting vs home with HHPT, family supervision and use of SPC. Recommend SPC, 3:1 commode for d/c if d/c home. P: Continue c PT POC (continue stair training and balance training)
--- NOTE | 2018-09-26 15:41 | NUR ---
CM Notes: This automotive service writer met with the patient and family at the bedside to discuss dc needs, patient would rather go home instead of SNF with HHRN for safety eval and HHPT for eval and treatment as needed SOC upon dc, carrie and son in law (at bedside) are visiting mother from out of state , above information was relayed to Dr. Rm. Shahida Willis, RNCM x [phone]
--- NOTE | 2018-09-26 15:46 | PN ---
Date/Time of Note Date/Time of Note DATE: 09/26/18 TIME: 15:43 Assessment/Plan VTE Prophylaxis Risk score (from Ns)>0 risk: 3 SCD applied (from Ns): Yes Pharmacological prophylaxis: heparin Lines/Catheters IV Catheter Type (from Nrs): Peripheral IV Urinary Cath still in place: No Assessment/Plan Assessment/Plan 1. Vfib Cardiac arrest with ROSC s/p hypothermia protocol s/p AICD placement - Patient doing well s/p AICD placement and interrogated. Will need to follow up in 7-10 days for re interrogation with Dr. Graham - Cardiology on board and appreciate consultation. - After being found down in Vfib arrest, patient underwent ACLS with 4 rounds of epi, Amiodarone x1, bicarb with ROSC. Patient noted with hypokalemia with K 2.1 at time of admission - ECHO reviewed and patient with poor EF 20% at time of admission. Repeat ECHO showed improvement to 50% - cardiac cath done 09/17/18, no significant stenosis 2. Fibromuscular dysplasia- stable - discussed findings with daughter and patient and need for follow up with PCP and Neurology as outpatient - seen on CT angio of the brain - Also likely the underlying cause of patient's blood pressure issues as she likely has the effects of the fibromuscular dysplasia throughout her body including the renal arteries - Aneurysm also seen on the CT angios of the brain likely 2/2 to fibromusclar dysplasia, partially calcified, likely not a surgical candidate due to calcification however patient will likely need very close follow-up with a neurologist with repeated scans and possible further intervention if deemed n ecessary 3. Acute hypoxic respiratory failure- resolved - No acute respiratory issues appreciated - Pulm on board and appreciate consultation - wean O2 as tolerated 4. Septic shock secondary to aspiration pneumonia- resolved - Completed course of antibiotics - remains afebrile with normal WBC 5. Transaminitis- resolved - most likely secondary to hypoperfusion 6. HTN - stable 7. JULISSA- resolved - Nephrology consultation appreciated. continue on lasix 8. Disposition - PT evaluation appreciated - HHPT, cane, and 3:1 commode ordered - if remains stable, will d/c home tomorrow Result Diagram: 09/23/18 0539 09/26/18 0555 Results 24hrs Laboratory Tests Test 09/26/18 05:55 Sodium Level 143 Potassium Level 4.5 Chloride Level 103 Carbon Dioxide Level 31 Anion Gap 9 Blood Urea Nitrogen 14 Creatinine 1.00 Glucose Level 97 Calcium Level 9.5 Phosphorus Level 3.9 Magnesium Level 2.1 Albumin 3.6 Subjective 24 Hr Interval Summary Free Text/Dictation Patient doing well and in no acute distress. No new complaints. In good spirits. Exam/Review of Systems Exam Vitals Vital Signs Date Temp Pulse Resp B/P (MAP) Pulse Ox O2 O2 Flow FiO2 Time Delivery Rate 09/26/18 84 20 93 21 13:19 09/26/18 97.6 113/58 Room Air 12:02 (76) 09/26/18 2.0 08:17 Intake and Output 09/25/18 09/25/18 09/26/18 1515:00 23:00 07:00 IntakeIntake Total 625 ml 580 ml BalanceBalance 625 ml 580 ml Physical exam General: Patient is laying in bed, no acute distress. answering questions appropriately Neck: Supple Respiratory: Clear to auscultation bilaterally. no wheezing or rhonchi Cardiovascular: regular rate and rhythm, no obvious murmurs Gastrointestinal: soft, non-tender to palpation, nondistended, bowel sounds heard. Neurological: Moves all extremities spontaneously Skin: No new skin lesions Results Results 24hrs Laboratory Tests Test 09/26/18 05:55 Sodium Level 143 Potassium Level 4.5 Chloride Level 103 Carbon Dioxide Level 31 Anion Gap 9 Blood Urea Nitrogen 14 Creatinine 1.00 Glucose Level 97 Calcium Level 9.5 Phosphorus Level 3.9 Magnesium Level 2.1 Albumin 3.6 OZZIE ALVAREZ MD Sep 26, 2018 15:46
--- NOTE | 2018-09-26 18:35 | NUR ---
EOSS: NO ACUTE DISTRESS DURING DAY SHIFT. PT IS AOX4, RESPIRATIONS UNLABORED, DENIES PAIN, AMBULATES WITH ASSISTANCE. PT HAS A LEFT ARM SLING THAT WILL STAY FOR 3 WEEKS. INCENTIVE SPIROMETER GIVEN TO PT. PT IS ABLE TO AMBULATE WITH CANE. ALL MEDICATIONS HAVE BEEN GIVEN SCHEDULED. ALL PT'S NEEDS HAVE BEEN MET. WILL ENDORSE TO PCAT INSTRUCTOR NURSE.
--- NOTE | 2018-09-26 19:59 | RADRPT ---
Vent Rate: 81 bpm RR Interval: 0 msec PA Interval: 164 msec QRS Duration: 152 msec QT Interval: 430 msec QTC Interval: 499 msec P-R-T [place]: 64 - -14 - 162 degrees Normal sinus rhythm Left bundle branch block Abnormal ECG Electronically Signed By: Rusty Fuentes [id number]
[2018-09-27] VITALS (13 sets, daily range): BP systolic 100–160; BP diastolic 49–90; PULSE 70–118; RESP 17–23
[2018-09-27] MEDS: ALBUTEROL/IPRATROPIUM (NEB) 3 ML AMP HHN SCH ×4 (01:06→19:44)
[2018-09-27] MEDS: LABETALOL HCL 20MG INJ IV PRN (04:33)
[2018-09-27] MEDS: FUROSEMIDE 20 MG INJ IV SCH (05:38)
[2018-09-27] MEDS: PANTOPRAZOLE (EC) 40 MG TAB PO SCH (05:39)
--- NOTE | 2018-09-27 06:22 | NUR ---
end of shift note: pt stable overnight, no acute distress, no c/o of pain or any breathing problem noted, one time of SBP in 160s, controlled with PRN labetalol, still on 2L of oxygen/ continue to monitor pt
--- NOTE | 2018-09-27 07:46 | CONS ---
Consult Date/Type/Reason Admit Date/Time Sep 09, 2018 at 16:10 Initial Consult Date 09/10/18 Type of Consultation: cv Requesting Provider: OZZIE ALVAREZ MD Date/Time of Note DATE: 09/27/18 TIME: 07:45 Subjective Interventional cardiology follow-up progress note/critical care note Subjective: Case discussed with the staff and rhythm was reviewed. Patient remains in sinus rhythm . no VT. BP is stable/ low now she feels well and has minimal chest wall tenderness only events noted 09/17/18: [facility] iva shows no significant obstructive coronary artery disease ICD 09/25/18 O: General: no acute distress HEENT: NC/AT. pupils are equal. round. NECK: no stridor. CV: RRR. systolic murmur; no gallop or rubs. PULM: no wheezing min rhonchi in the right side. GI: SOFT, NT, ND, no rebound or guarding Extremity: trace B/L LE edema. no clubbing. neuro: awake and alert Ox 3 Psych: calm rectal: deferred Right femoral artery with no bleeding or hematoma chest s/p ICD with no hematoma or bleeding CXR 09/16/18: Since the prior study, there has been no significant interval change in the appearance of the heart or lungs or position of tubes and lines allowing for slight differences in technique and positioning.. Tubes and lines remain in good position. Right lung infiltrate is again seen with slight fluid in the minor fissure. The left lung remains relatively clear. echo reviewed Normal left ventricular cavity size. Moderate concentric left ventricular hypertrophy. Severe global left ventricular systolic dysfunction. Ejection fraction is visually estimated at 20 %. Mitral valve leaflets appear mildly thickened. Mild mitral annular calcification. Trace mitral regurgitation. No significant aortic stenosis or insufficiency. Aortic cusps appear mildly calcified. Normal appearance of the tricuspid valve. Estimated peak PA systolic pressure 27 mmHg. There is mild tricuspid regurgitation. Dilated IVC without respiratory collapse, however, patient on ventilator. ECHO 09/17/18 reviewed personally: Lower limits of normal systolic function. Normal left ventricular cavity size. Mild concentric left ventricular hypertrophy. Paradoxical septal motion consistent with IVCD or bundle branch block. Ejection fraction is visually estimated at 50 %. Tissue Doppler/Mitral Doppler indices are consistent with impaired relaxation (Stage I diastolic dysfunction). Compared to echo done on September 10, 2018 ejection fraction has significantly improved now. Mitral valve leaflets appear mildly thickened. Mild mitral annular calcification. Trace mitral regurgitation. Aortic sclerosis without significant stenosis. Trace aortic valve regurgitation. Normal appearance of the tricuspid valve. Estimated peak PA systolic pressure 33 mmHg. There is mild tricuspid regurgitation. Dilated IVC without respiratory collapse, however, patient on ventilator. Objective Vitals Vital Signs Date Temp Pulse Resp B/P (MAP) Pulse Ox O2 O2 Flow FiO2 Time Delivery Rate 09/27/18 137/90 05:54 (106) 09/27/18 98.3 74 17 98 04:00 09/27/18 2.0 01:07 09/27/18 Nasal 01:07 Cannula 09/26/18 21 19:52 Intake and Output 09/26/18 09/26/18 09/27/18 1515:00 23:00 07:00 IntakeIntake Total 460 ml 480 ml BalanceBalance 460 ml 480 ml Results/Medications Result Diagram: 09/23/18 0539 09/26/18 0555 Home Meds Reported Medications Hydrochlorothiazide* (Hydrochlorothiazide*) 25 Mg Tab, 25 MG PO DAILY, #30 TAB 09/09/18 Simvastatin (Simvastatin) 20 Mg Tablet, 20 MG PO DAILY 09/09/18 Lisinopril* (Lisinopril*) 40 Mg Tablet, 40 MG PO DAILY 09/09/18 Medications Current Medications Acetaminophen (Tylenol Liquid) 650 mg Q6H PRN NGT PAIN LEVEL 1-3 OR FEVER Last administered on 09/20/18at 08:39; Admin Dose 650 MG; Start 09/09/18 at 16:30 Miscellaneous Information 1 ea NOTE XX ; Start 09/12/18 at 04:30 Glucose (Glutose) 15 gm Q15M PRN PO DECREASED GLUCOSE; Start 09/12/18 at 04:30 Glucose (Glutose) 22.5 gm Q15M PRN PO DECREASED GLUCOSE; Start 09/12/18 at 04:30 Dextrose (D50w Syringe) 25 ml Q15M PRN IV DECREASED GLUCOSE; Start 09/12/18 at 04:30 Dextrose (D50w Syringe) 50 ml Q15M PRN IV DECREASED GLUCOSE; Start 09/12/18 at 04:30 Glucagon (Glucagen) 1 mg Q15M PRN IM DECREASED GLUCOSE; Start 09/12/18 at 04:30 Glucose (Glutose) 15 gm Q15M PRN BUCCAL DECREASED GLUCOSE; Start 09/12/18 at 04:30 Furosemide (Lasix) 20 mg DAILY@0600 IV Last administered on 09/27/18 05:38; Admin Dose 20 MG; Start 09/14/18 at 06:00 Aspirin (Aspirin) 81 mg DAILY NGT Last administered on 09/26/18 08:10; Admin Dose 81 MG; Start 09/14/18 at 09:30 Budesonide (Pulmicort (Neb)) 0.5 mg BID RESP THERAPY HHN Last administered on 09/26/18 20:05; Admin Dose 0.5 MG; Start 09/16/18 at 20:00 Isosorbide Dinitrate (Isordil) 20 mg TID NGT Last administered on 09/26/18 20:44; Admin Dose 20 MG; Start 09/17/18 at 10:00 Albuterol/ Ipratropium (Duoneb) 3 ml Q6H RESP THERAPY HHN Last administered on 09/27/18 01:06; Admin Dose 3 ML; Start 09/18/18 at 20:00 Labetalol HCl (Labetalol) 10 mg Q4H PRN IV sbp>160 Last administered on 09/27/18 04:33; Admin Dose 10 MG; Start 09/18/18 at 14:30 Haloperidol (Haldol) 5 mg Q8 PRN IM agitation; Start 09/18/18 at 16:00 Lisinopril (Zestril) 20 mg BID NGT Last administered on 09/26/18 20:44; Admin Dose 20 MG; Start 09/19/18 at 09:00 Acetaminophen/ Hydrocodone Bitart ([place] (5/325)) 1 tab Q4H PRN PO MODERATE PAIN LEVEL 4-6 Last administered on 09/19/18 23:17; Admin Dose 1 TAB; Start 09/19/18 at 15:00 Carvedilol (Coreg) 25 mg BID PO Last administered on 09/26/18 20:44; Admin Do se 25 MG; Start 09/20/18 at 21:00 Spironolactone (Aldactone) 50 mg DAILY NGT Last administered on 09/26/18 08:09; Admin Dose 50 MG; Start 09/21/18 at 09:00 Pantoprazole (Protonix Tab) 40 mg DAILY@06 PO Last administered on 09/27/18at 05:39; Admin Dose 40 MG; Start 09/24/18 at 06:00 Morphine Sulfate (morphine SULFATE (PF)) 1 mg Q1H PRN IV PAIN LEVEL 6-10; Start 09/25/18 at 09:00 Morphine Sulfate (morphine) 6 mg Q4H PRN PO SEVERE PAIN LEVEL 7-10; Start 09/25/18 at 23:00 Assessment/Plan Hospital Course (Demo Recall) 1. Status post cardiopulmonary arrest, s/p st Angel MRI compatible ICD 09/25/18 2. Hypoxemic hypercapnic respiratory failure status post intubation on the vent: now extubated 3. Right lung infiltrate consistent with pneumonia possible aspiration pneumonia 4. s/p VF/ V. tach arrest: 5. Encephalopathy 6. Severe lactic acidosis: resolved 7. Hyperglycemia: resolved 8. Transaminitis 9. Severe hypokalemia: corrected 10. Positive troponin consistent with NSTEMI; however, given the fact that patient had normal coronaries this most likely secondary to CPR and cardiopulmonary arrest and not true ID 11. Cardiomyopathy and hypertensive heart disease: EF improved from 20%now up to 50% 12. JULISSA : improved now 13. thrombocytopenia:resolved now 14. Anemia; s/p transfusion Recommendations: ICD was interrogated and personally reviewed which is normal functioning ICD Antibiotic management will be deferred to internal medicine/pulmonary team Repeat echo has shown significant improvement in LV systolic function. off hydralazine due to hypotension ( it has been held due to hypotension). cont lisinopril and Aldactone and coreg . pt may have secondary HTN due to hyperaldosteronism or renal artery stenosis. ASA is on hold now Okay to discharge from cardiac standpoint. Patient however needs to follow with me for an ICD check in post hospital follow-up in about 7-10 days. My information has been given to the patient and family Thank you for his referral. We will continue to follow along with you on as needed basis DEMETRIUS MCCRAY MD [facility] DEMETRIUS MCCRAY MD Sep 27, 2018 07:46
[2018-09-27] MEDS: ASPIRIN 81 MG TAB NGT SCH (08:30)
[2018-09-27] MEDS: SPIRONOLACTONE 50 MG TAB NGT SCH (08:30)
[2018-09-27] MEDS: LISINOPRIL 20 MG TAB NGT SCH ×2 (08:30→20:16)
[2018-09-27] MEDS: ISOSORBIDE DINITRATE 20 MG TAB NGT SCH (08:30)
[2018-09-27] MEDS: BUDESONIDE (NEB) 0.5MG/2ML AMP HHN SCH ×2 (08:51→19:44)
--- NOTE | 2018-09-27 10:20 | NUR ---
PT NOTE Therapy day number 2 Subjective Denies pain Pain Scale NUMERIC Pain Intensity 0 (0-10) Patient Stated Goal for Pain Relief 0 (0-10) Pain Level Comment denies Exercise Assessment Label Bilat Lower Extremity Exercise Type Active ROM Additional Exercise Comments sit to stand x10 no AD Exercise Start Time 10:20 Exercise End Time 10:30 Total Exercise Time 10 min (8-127) Transfer Training Start Time 10:30 Supine to Sit Modified Independent Transfer Sit to Stand Ability Supervised Bed Mobility Sit to Supine Modified Independent Bed Transfer Ability Supervised Chair Transfer Ability Supervised Toileting Ability Supervised Sitting Tolerance 20 min Additional Mobility Comments L arm in sling Transfer Training End Time 10:45 Total Transfer Training Time 15 min (8-127) Gait Training Start Time 10:45 Gait Assist Levels Stand by Assist Assistive Devices None Ambulation Distance 10 feet Additional Gait Comments 10'x2 to/from toilet no AD, no LOB, furniture/wall to steady Gait Training End Time 11:00 Total Gait Training Treatment Time 15 min (8-127) Static Sitting Balance Good Dynamic Sitting Balance Good Standing Static Balance Fair plus Dynamic Standing Balance Fair plus Additional Balance Assessments Comments no AD, using furniture/wall to steady Safety Judgement Fair Activity Tolerance Fair Additional Equipment Present L arm sling Post Treatment Pain Intensity 0 0-10 Quality Indicators Dizziness Additional Post Treatment Comment See PT Note Total Treament Time 40 min (8-127) Total Minutes 40 Total Units 3 PT Technical Record Comment PT NOTE S: Pt reports no pain or dizziness pre-tx, agreeable to PT, CLeared for PT per DANNY Gudino. O: Pt received semifowler in bed, on 2L O2 via NC, NC dislodged/resting on chest, SpO2 92%. Performed bed mobility, thera ex, transfer tr and gait tr per tech record. Bed mobility Alfred. Pt ambulated to toilet, urinated in toilet, indep pericare, performed hand hygiene at sink with no AD, occasional use of devries/furniture to steady, on RA. SpO2 91% on RA post toilet/hand hygeine. SpO2 increased to 94% with 2L O2. Performed [id number] at bedside x10, pt then c/o dizziness and returned to sitting EOB. BTB due to hypotensive. Pt positioned for comfort post tx with call light in reach, no apparent distress, RN aware and updated re pt status. VS: BP seated (post gait tr and thera ex) 63/44mmHg, HR 80bpm; supine (post-tx) 99/42mmHg, HR 75bpm A: Pt ansley tx fairly, limited by decreased BP with exertion, possibly related to BP meds per DANNY Gudino. P: Cont POC, monitor BP
--- NOTE | 2018-09-27 11:24 | PN ---
Date/Time of Note Date/Time of Note DATE: 09/27/18 TIME: 11:21 Assessment/Plan VTE Prophylaxis Risk score (from Ns)>0 risk: 4 SCD applied (from Ns): Yes Pharmacological prophylaxis: heparin Lines/Catheters IV Catheter Type (from Nrs): Saline Lock Urinary Cath still in place: No Assessment/Plan Assessment/Plan 1. Vfib Cardiac arrest with ROSC s/p hypothermia protocol s/p AICD placement - Will need to follow up with Dr. Graham in 7-10 days for AICD check - Cardiology on board and appreciate consultation. - After being found down in Vfib arrest, patient underwent ACLS with 4 rounds of epi, Amiodarone x1, bicarb with ROSC. Patient noted with hypokalemia with K 2.1 at time of admission - ECHO reviewed and patient with poor EF 20% at time of admission. Repeat ECHO showed improvement to 50% - cardiac cath done 09/17/18, no significant stenosis 2. Fibromuscular dysplasia- stable - discussed findings with daughter and patient and need for follow up with PCP and Neurology as outpatient - seen on CT angio of the brain - Also likely the underlying cause of patient's blood pressure issues as she likely has the effects of the fibromuscular dysplasia throughout her body including the renal arteries - Aneurysm also seen on the CT angios of the brain likely 2/2 to fibromusclar dysplasia, partially calcified, likely not a surgical candidate due to calcification however patient will likely need very close follow-up with a neurologist with repeated scans and possible further intervention if deemed necessary 3. Acute hypoxic respiratory failure- resolved - No acute respiratory issues appreciated - Pulm on board and appreciate consultation 4. Septic shock secondary to aspiration pneumonia- resolved - Completed course of antibiotics - remains afebrile with normal WBC 5. Transaminitis- resolved - most likely secondary to hypoperfusion 6. HTN - stable 7. JULISSA- resolved - Nephrology consultation appreciated. continue on lasix 8. Disposition - Medically stable for discharge home Result Diagram: 09/23/18 0539 09/26/18 0555 Subjective 24 Hr Interval Summary Free Text/Dictation Patient doing well and in no acute distress. states ready for discharge home and working with PT to assess her ability to walk the stairs. Exam/Review of Systems Exam Vitals Vital Signs Date Temp Pulse Resp B/P (MAP) Pulse Ox O2 O2 Flow FiO2 Time Delivery Rate 09/27/18 85 20 08:51 09/27/18 Nasal 1.0 08:00 Cannula 09/27/18 98.0 130/77 91 07:58 (94) 09/26/18 21 19:52 Intake and Output 09/26/18 09/26/18 09/27/18 1515:00 23:00 07:00 IntakeIntake Total 460 ml 480 ml BalanceBalance 460 ml 480 ml Physical exam General: Patient is laying in bed, no acute distress. answering questions appropriately Neck: Supple Respiratory: Clear to auscultation bilaterally. no wheezing or rhonchi Cardiovascular: regular rate and rhythm, no obvious murmurs Gastrointestinal: soft, non-tender to palpation, nondistended, bowel sounds heard. Neurological: Moves all extremities spontaneously Skin: No new skin lesions OZZIE ALVAREZ MD Sep 27, 2018 11:24
[2018-09-27] MEDS ORDERED: CARV25TA79 PO (11:29)
[2018-09-27] MEDS ORDERED: LISI-471 PO (11:29)
[2018-09-27] MEDS ORDERED: ASPI-831 PO (11:29)
[2018-09-27] MEDS ORDERED: FURO40TA4 PO (11:29)
[2018-09-27] MEDS ORDERED: SPIR50TA PO (11:29)
[2018-09-27] MEDS ORDERED: ISOS20TA19 PO (11:29)
--- NOTE | 2018-09-27 11:36 | PDOCDIS ---
Discharge Instructions DIAGNOSIS Discharge Diagnosis 1. Vfib Cardiac arrest with ROSC s/p hypothermia protocol s/p AICD placement 2. Fibromuscular dysplasia- stable 3. Acute hypoxic respiratory failure- resolved 4. Septic shock secondary to aspiration pneumonia- resolved 5. Transaminitis- resolved 6. Hypertension 7. Acute kidney injury CONDITION [id number] Patient Condition: [id number] Stable HOME CARE INSTRUCTIONS: [id number] Diet Instructions: [id number] Low Fat /Cholesterol ACTIVITY: [id number] Activity Restrictions: [id number] No Restrictions FOLLOW UP/APPOINTMENTS Follow-up Plan 1. Follow up with your primary care physician in 1 week 2. You will need to discuss referral to neurology to continue monitoring the aneurysm seen on the CT scan of your brain 3. Continue taking Carvedilol twice a day, Isosorbide three times a day, Lisinopril once a day, and Lasix daily 4. You will need to follow up with Dr. Graham in 7-10 days to check the AICD. Continue arm in sling as instructed 5. You will have home health and physical therapy come work with you at your home 6. If symptoms return or worsen, please go to your closest emergency department. OZZIE ALVAREZ MD Sep 27, 2018 11:36
--- NOTE | 2018-09-27 12:10 | CONS ---
Consult Date/Type/Reason Admit Date/Time Sep 09, 2018 at 16:10 Initial Consult Date 09/10/18 Type of Consult Pulmonary Requesting Provider: OZZIE ALVAREZ MD Date/Time of Note DATE: 09/27/18 TIME: 12:09 Subjective Comfortable Objective Vital Signs Date Temp Pulse Resp B/P (MAP) Pulse Ox O2 O2 Flow FiO2 Time Delivery Rate 09/27/18 85 20 08:51 09/27/18 Nasal 1.0 08:00 Cannula 09/27/18 98.0 130/77 91 07:58 (94) 09/26/18 21 19:52 Intake and Output 09/26/18 09/26/18 09/27/18 1515:00 23:00 07:00 IntakeIntake Total 460 ml 480 ml BalanceBalance 460 ml 480 ml Exam GENERAL: VITAL SIGNS: per chart NECK: Supple. No JVD or lymphadenopathy. CARDIAC EXAM: S1, S2. No added sounds or murmurs. CHEST: clear bilaterally, No added sounds, rales or wheezes ABDOMEN: Soft, nontender. No guarding or rebound. EXTREMITIES: No cyanosis, clubbing or edema. NEUROLOGIC: Generalized weakness. No focal deficits. Vent Setting Ventilator Support Mode: CPAP Fraction of Inspired Oxygen pe: 21 Positive End Expiratory Pressu: 5.0 Results/Medications Result Diagram: 09/23/18 0539 09/26/18 0555 Medications Current Medications Acetaminophen (Tylenol Liquid) 650 mg Q6H PRN NGT PAIN LEVEL 1-3 OR FEVER Last administered on 09/20/18at 08:39; Admin Dose 650 MG; Start 09/09/18 at 16:30 Miscellaneous Information 1 ea NOTE XX ; Start 09/12/18 at 04:30 Glucose (Glutose) 15 gm Q15M PRN PO DECREASED GLUCOSE; Start 09/12/18 at 04:30 Glucose (Glutose) 22.5 gm Q15M PRN PO DECREASED GLUCOSE; Start 09/12/18 at 04:30 Dextrose (D50w Syringe) 25 ml Q15M PRN IV DECREASED GLUCOSE; Start 09/12/18 at 04:30 Dextrose (D50w Syringe) 50 ml Q15M PRN IV DECREASED GLUCOSE; Start 09/12/18 at 04:30 Glucagon (Glucagen) 1 mg Q15M PRN IM DECREASED GLUCOSE; Start 09/12/18 at 04:30 Glucose (Glutose) 15 gm Q15M PRN BUCCAL DECREASED GLUCOSE; Start 09/12/18 at 04:30 Furosemide (Lasix) 20 mg DAILY@0600 IV Last administered on 09/27/18 05:38; Admin Dose 20 MG; Start 09/14/18 at 06:00 Aspirin (Aspirin) 81 mg DAILY NGT Last administered on 09/27/18 08:30; Admin Dose 81 MG; Start 09/14/18 at 09:30 Budesonide (Pulmicort (Neb)) 0.5 mg BID RESP THERAPY HHN Last administered on 09/27/18 08:51; Admin Dose 0.5 MG; Start 09/16/18 at 20:00 Isosorbide Dinitrate (Isordil) 20 mg TID NGT Last administered on 09/27/18 08:30; Admin Dose 20 MG; Start 09/17/18 at 10:00 Albuterol/ Ipratropium (Duoneb) 3 ml Q6H RESP THERAPY HHN Last administered on 09/27/18 08:48; Admin Dose 3 ML; Start 09/18/18 at 20:00 Labetalol HCl (Labetalol) 10 mg Q4H PRN IV sbp>160 Last administered on 09/27/18 04:33; Admin Dose 10 MG; Start 09/18/18 at 14:30 Haloperidol (Haldol) 5 mg Q8 PRN IM agitation; Start 09/18/18 at 16:00 Lisinopril (Zestril) 20 mg BID NGT Last administered on 09/27/18 08:30; Admin Dose 20 MG; Start 09/19/18 at 09:00 Acetaminophen/ Hydrocodone Bitart ([place] (5/325)) 1 tab Q4H PRN PO MODERATE PAIN LEVEL 4-6 Last administered on 09/19/18 23:17; Admin Dose 1 TAB; Start 09/19/18 at 15:00 Carvedilol (Coreg) 25 mg BID PO Last administered on 09/27/18 08:30; Admin Dose 25 MG; Start 09/20/18 at 21:00 Spironolactone (Aldactone) 50 mg DAILY NGT Last administered on 09/27/18 08:30; Admin Dose 50 MG; Start 09/21/18 at 09:00 Pantoprazole (Protonix Tab) 40 mg DAILY@06 PO Last administered on 09/27/18at 05:39; Admin Dose 40 MG; Start 09/24/18 at 06:00 Morphine Sulfate (morphine SULFATE (PF)) 1 mg Q1H PRN IV PAIN LEVEL 6-10; Start 09/25/18 at 09:00 Morphine Sulfate (morphine) 6 mg Q4H PRN PO SEVERE PAIN LEVEL 7-10; Start 09/25/18 at 23:00 Assessment/Plan Hospital Course (Demo Recall) assessment 1. Status post cardiopulmonary arrest 2. Resolving toxic metabolic encephalopathy 3. Postarrest mild neuromuscular weakness discussed with staff at bedside 4. Probable aspiration pneumonia 5. Resolving acute renal failure likely ATN 6. Anemia likely dilutional no evidence of acute GI bleed Plan 1. Stable post AICD placement 2. PT eval recs for precautions 3. Aspiration precautions DC planning GERARDO INMAN MD, [facility] Sep 27, 2018 12:10
[2018-09-27] MEDS: ISOSORBIDE DINITRATE 20 MG TAB PO SCH ×2 (13:00→20:15)
--- NOTE | 2018-09-27 14:39 | NUR ---
CM notes: This advertising writer faxed DME order for bedside commode to [facility] spoke with Jose who stated they would deliver the DME to the bedside, spoke with Theo of [phone] who stated he would deliver the magdaleno to the bedside, orders for HH faxed to [facility] per Shane his office is working on the order and will try to staff over the weekend, this advertising writer also contacted [facility] as they are the payer for HH and the following [facility] approved HH agencies : [facility] care [facility] [place] [facility] All HH agencies above stated they are not taking [facility] patients either because they do not have a contract or becuase they do not get reimbursed by [facility]. Shahida Willis, [facility]NY[facility] [phone]
--- NOTE | 2018-09-27 17:59 | DS ---
Date/Time of Note Date/Time of Note DATE: 09/27/18 TIME: 17:59 Discharge Summary Admission/Discharge Info Admit Date/Time Sep 09, 2018 at 16:10 Discharge Date/Time Discharge Diagnosis 1. Vfib Cardiac arrest with ROSC s/p hypothermia protocol s/p AICD placement 2. Fibromuscular dysplasia- stable 3. Acute hypoxic respiratory failure- resolved 4. Septic shock secondary to aspiration pneumonia- resolved 5. Transaminitis- resolved 6. Hypertension 7. Acute kidney injury Hx of Present Illness 63 yo F with PMH assumed HTN presented to ED in full cardiac arrest. History obtained from ED and EMS documentation given patient intubated and hypothermia protocol initiated. Patient was found on sidewalk unconscious. She was found in Vfib arrest and ACLS protocol was performed. She received amiodarone, 4 rounds of epinephrine, bicarb and narcan. She has ROSC but since was unresponsive, hypothermia was initiated. In ED patient found with septic shock secondary to right sided pneumonia. Home Meds Active Scripts Furosemide (Lasix) 40 Mg Tab, 40 MG PO DAILY for 30 Days, #30 TAB 6 Refills Prov:OZZIE ALVAREZ MD 09/27/18 Aspirin (Aspirin) 81 Mg Chew, 81 MG PO DAILY for 30 Days, #30 TAB 6 Refills Prov:OZZIE ALVAREZ MD 09/27/18 Spironolactone* (Aldactone*) 50 Mg Tablet, 50 MG PO DAILY for 30 Days, #30 TAB Prov:OZZIE ALVAREZ MD 09/27/18 Lisinopril* (Lisinopril*) 20 Mg Tablet, 20 MG PO BID for 30 Days, #30 TAB 6 Re fills Prov:OZZIE ALVAREZ MD 09/27/18 Isosorbide Dinitrate* (Isosorbide Dinitrate*) 20 Mg Tablet, 20 MG PO TID for 30 Days, #90 TAB 6 Refills Prov:OZZIE ALVAREZ MD 09/27/18 Carvedilol* (Carvedilol*) 25 Mg Tablet, 25 MG PO BID for 30 Days, #60 TAB 6 Refills Prov:OZZIE ALVAREZ MD 09/27/18 Discontinued Reported Medications Hydrochlorothiazide* (Hydrochlorothiazide*) 25 Mg Tab, 25 MG PO DAILY, #30 TAB 09/09/18 Simvastatin (Simvastatin) 20 Mg Tablet, 20 MG PO DAILY 09/09/18 Lisinopril* (Lisinopril*) 40 Mg Tablet, 40 MG PO DAILY 09/09/18 Follow-up Plan 1. Follow up with your primary care physician in 1 week 2. You will need to discuss referral to neurology to continue monitoring the aneurysm seen on the CT scan of your brain 3. Continue taking Carvedilol twice a day, Isosorbide three times a day, Lisinopril once a day, and Lasix daily 4. You will need to follow up with Dr. Graham in 7-10 days to check the AICD. Continue arm in sling as instructed 5. You will have home health and physical therapy come work with you at your home 6. If symptoms return or worsen, please go to your closest emergency department. Primary Care Provider Care Physician No Primary OZZIE ALVAREZ MD Sep 27, 2018 17:59
--- NOTE | 2018-09-27 18:54 | NUR ---
Eoss No significant changes noted at this time, no c/o pain or distress noted. Pt amb w/ steady gait. Pt pending for Home health, spoke w/ Tiffanie special education case manager, she is working on it. All needs were met. Call light within reach, bed locked, and low. Will endorse accordingly
[2018-09-28] VITALS (8 sets, daily range): BP systolic 87–136; BP diastolic 52–72; PULSE 69–81; RESP 16–20
[2018-09-28] MEDS: ALBUTEROL/IPRATROPIUM (NEB) 3 ML AMP HHN SCH ×3 (01:33→13:30)
[2018-09-28] MEDS: FUROSEMIDE 20 MG INJ IV SCH (05:43)
[2018-09-28] MEDS: PANTOPRAZOLE (EC) 40 MG TAB PO SCH (05:43)
--- NOTE | 2018-09-28 06:28 | NUR ---
end of shift note: pt stable overnight, vital signs are within normal limit, pending discharge due to insurance, egg caser still working on it per note and dayshift report, pt tolerated well on room air. continue to monitor pt
[2018-09-28] MEDS: BUDESONIDE (NEB) 0.5MG/2ML AMP HHN SCH (07:55)
[2018-09-28] MEDS: ISOSORBIDE DINITRATE 10 MG TAB PO SCH ×2 (08:40→12:42)
[2018-09-28] MEDS: LISINOPRIL 20 MG TAB NGT SCH (08:41)
[2018-09-28] MEDS: ASPIRIN 81 MG TAB NGT SCH (08:41)
[2018-09-28] MEDS: SPIRONOLACTONE 50 MG TAB NGT SCH (08:41)
--- NOTE | 2018-09-28 09:26 | PN ---
Date/Time of Note Date/Time of Note DATE: 09/28/18 TIME: 09:26 Assessment/Plan VTE Prophylaxis Risk score (from Nsg)>0 risk: 3 SCD applied (from Ns): Yes Pharmacological prophylaxis: heparin Lines/Catheters IV Catheter Type (from Nrsg): Saline Lock Urinary Cath still in place: No Assessment/Plan Assessment/Plan 1. HTN - BP low this am and will decrease dose of isosorbide to 10mg. Will d/c Lasix and continue on spironolactone as well. Will need to monitor BP as outpatient and follow up with cardiology in 1 week 2. Vfib Cardiac arrest with ROSC s/p hypothermia protocol s/p AICD placement - Will need to follow up with Dr. Graham next week for AICD check - After being found down in Vfib arrest, patient underwent ACLS with 4 rounds of epi, Amiodarone x1, bicarb with ROSC. Patient noted with hypokalemia with K 2.1 at time of admission - ECHO reviewed and patient with poor EF 20% at time of admission. Repeat ECHO showed improvement to 50% - cardiac cath done 09/17/18, no significant stenosis 3. Fibromuscular dysplasia- stable - discussed findings with daughter and patient and need for follow up with PCP and Neurology as outpatient - seen on CT angio of the brain - Also likely the underlying cause of patient's blood pressure issues as she likely has the effects of the fibromuscular dysplasia throughout her body including the renal arteries - Aneurysm also seen on the CT angios of the brain likely 2/2 to fibromusclar dysplasia, partially calcified, likely not a surgical candidate due to calcification however patient will likely need very close follow-up with a neurologist with repeated scans and possible further intervention if deemed necessary 4. Acute hypoxic respiratory failure- resolved - No acute respiratory issues appreciated - Pulm on board and appreciate consultation 5. Septic shock secondary to aspiration pneumonia- resolved - Completed course of antibiotics - remains afebrile with normal WBC 6. Transaminitis- resolved - most likely secondary to hypoperfusion 7. JULISSA- resolved - Nephrology consultation appreciated. continue on lasix 8. Disposition - Medically stable for discharge home - CM on board for HHPT and DME Result Diagram: 09/26/18 0555 Subjective 24 Hr Interval Summary Free Text/Dictation Patient states she was feeling dizzy this am after taking all her BP meds. BP was low and adjustments made. CM working on HHPT and DME. Exam/Review of Systems Exam Vitals Vital Signs Date Temp Pulse Resp B/P (MAP) Pulse Ox O2 O2 Flow FiO2 Time Delivery Rate 09/28/18 71 08:08 09/28/18 97.8 20 136/72 96 Room Air 08:01 (93) 09/28/18 21 07:56 09/27/18 19:31 Intake and Output 09/27/18 09/27/18 09/28/18 1515:00 23:00 07:00 IntakeIntake Total 830 ml 500 ml BalanceBalance 830 ml 500 ml Exam General: Patient is laying in bed, no acute distress. answering questions appropriately Neck: Supple Respiratory: Clear to auscultation bilaterally. no wheezing or rhonchi Cardiovascular: regular rate and rhythm, no obvious murmurs Gastrointestinal: soft, non-tender to palpation, nondistended, bowel sounds heard. Neurological: Moves all extremities spontaneously Skin: No new skin lesions Medications Medication Current Medications Acetaminophen (Tylenol Liquid) 650 mg Q6H PRN NGT PAIN LEVEL 1-3 OR FEVER Last administered on 09/20/18at 08:39; Admin Dose 650 MG; Start 09/09/18 at 16:30 Miscellaneous Information 1 ea NOTE XX ; Start 09/12/18 at 04:30 Glucose (Glutose) 15 gm Q15M PRN PO DECREASED GLUCOSE; Start 09/12/18 at 04:30 Glucose (Glutose) 22.5 gm Q15M PRN PO DECREASED GLUCOSE; Start 09/12/18 at 04:30 Dextrose (D50w Syringe) 25 ml Q15M PRN IV DECREASED GLUCOSE; Start 09/12/18 at 04:30 Dextrose (D50w Syringe) 50 ml Q15M PRN IV DECREASED GLUCOSE; Start 09/12/18 at 04:30 Glucagon (Glucagen) 1 mg Q15M PRN IM DECREASED GLUCOSE; Start 09/12/18 at 04:30 Glucose (Glutose) 15 gm Q15M PRN BUCCAL DECREASED GLUCOSE; Start 09/12/18 at 04:30 Furosemide (Lasix) 20 mg DAILY@0600 IV Last administered on 09/28/18at 05:43; Admin Dose 20 MG; Start 09/14/18 at 06:00 Aspirin (Aspirin) 81 mg DAILY NGT Last administered on 09/28/18 08:41; Admin Dose 81 MG; Start 09/14/18 at 09:30 Budesonide (Pulmicort (Neb)) 0.5 mg BID RESP THERAPY HHN Last administered on 09/28/18 07:55; Admin Dose 0.5 MG; Start 09/16/18 at 20:00 Albuterol/ Ipratropium (Duoneb) 3 ml Q6H RESP THERAPY HHN Last administered on 09/28/18 07:55; Admin Dose 3 ML; Start 09/18/18 at 20:00 Labetalol HCl (Labetalol) 10 mg Q4H PRN IV sbp>160 Last administered on 09/27/18 04:33; Admin Dose 10 MG; Start 09/18/18 at 14:30 Haloperidol (Haldol) 5 mg Q8 PRN IM agitation; Start 09/18/18 at 16:00 Lisinopril (Zestril) 20 mg BID NGT Last administered on 09/28/18 08:41; Admin Dose 20 MG; Start 09/19/18 at 09:00 Acetaminophen/ Hydrocodone Bitart (Dalzell (5/325)) 1 tab Q4H PRN PO MODERATE PAIN LEVEL 4-6 Last administered on 09/19/18 23:17; Admin Dose 1 TAB; Start 09/19/18 at 15:00 Carvedilol (Coreg) 25 mg BID PO Last administered on 09/28/18 08:41; Admin Dose 25 MG; Start 09/20/18 at 21:00 Spironolactone (Aldactone) 50 mg DAILY NGT Last administered on 09/28/18 08:41; Admin Dose 50 MG; Start 09/21/18 at 09:00 Pantoprazole (Protonix Tab) 40 mg DAILY@06 PO Last administered on 09/28/18at 05:43; Admin Dose 40 MG; Start 09/24/18 at 06:00 Morphine Sulfate (morphine SULFATE (PF)) 1 mg Q1H PRN IV PAIN LEVEL 6-10; Start 09/25/18 at 09:00 Morphine Sulfate (morphine) 6 mg Q4H PRN PO SEVERE PAIN LEVEL 7-10; Start 09/25/18 at 23:00 Isosorbide Dinitrate (Isordil) 20 mg TID PO Last administered on 09/28/18at 08:40; Admin Dose 20 MG; Start 09/28/18 at 09:00 OZZIE ALVAREZ MD Sep 28, 2018 09:26
[2018-09-28] MEDS ORDERED: ISOS10TA2 PO (14:04)
--- NOTE | 2018-09-28 14:38 | PDOCDIS ---
Discharge Instructions DIAGNOSIS Discharge Diagnosis 1. Vfib Cardiac arrest with ROSC s/p hypothermia protocol s/p AICD placement 2. Fibromuscular dysplasia- stable 3. Acute hypoxic respiratory failure- resolved 4. Septic shock secondary to aspiration pneumonia- resolved 5. Transaminitis- resolved 6. Hypertension 7. Acute kidney injury CONDITION [id number] Patient Condition: [id number] Stable HOME CARE INSTRUCTIONS: [id number] Diet Instructions: [id number] Low Fat /Cholesterol ACTIVITY: [id number] Activity Restrictions: [id number] No Restrictions FOLLOW UP/APPOINTMENTS Follow-up Plan 1. Follow up with your primary care physician in 1 week 2. You will need to discuss referral to neurology to continue monitoring the aneurysm seen on the CT scan of your brain 3. Continue taking Carvedilol twice a day, Isosorbide 10mg three times a day, Lisinopril once a day, and Aldactone. Do not take Lasix. Make sure you have food in her stomach when taking medications. 4. You will need to follow up with Dr. Graham in 7-10 days to check the AICD. Continue arm in sling as instructed 5. You will have home health and physical therapy come work with you at your home 6. If symptoms return or worsen, please go to your closest emergency department. OZZIE ALVAREZ MD Sep 28, 2018 14:37
--- NOTE | 2018-09-28 16:22 | NUR ---
RN NOTES: DISCHARGE IV removed, cathlon tip intact. Discharge packet/instructions discussed with patient and family at bedside, all voiced understanding. Gave AICD manual, however, ordered new AICD card from practice assistant and stripping shovel operator stated they will send a new card this coming week to pt's house. Pt left the unit with all personal belongings, refused wheelchair.
[2018-09-28] MEDS ORDERED: ISOSORBIDE DINITRATE 10 MG TAB PO SCH (17:00)
--- NOTE | 2018-09-28 17:11 | DS ---
Date/Time of Note Date/Time of Note DATE: 09/28/18 TIME: 17:01 Discharge Summary Admission/Discharge Info Admit Date/Time Sep 09, 2018 at 16:10 Discharge Date/Time Sep 28, 2018 at 16:24 Discharge Diagnosis 1. Vfib Cardiac arrest with ROSC s/p hypothermia protocol s/p AICD placement 2. Fibromuscular dysplasia- stable 3. Acute hypoxic respiratory failure- resolved 4. Septic shock secondary to aspiration pneumonia- resolved 5. Transaminitis- resolved 6. Hypertension 7. Acute kidney injury Patient Condition: Stable Consults Pulmonology- Dr. Cruz/Kamleshrni Cardiology- Dr. Graham Nephrology- Dr. Wagner Infectious disease Palliative- Dr. Jaimes Procedures PROCEDURE: CTA Brain. CLINICAL INDICATION: Possible cerebral aneurysm on noncontrast head CT. Confusion. TECHNIQUE: The study was performed utilizing a multi-slice multidetector CT scanner. Direct spiral 0.65 mm axial sections were obtained through the intracranial vasculature with the use of 100 cc of Onipaque 350 nonionic intravenous contrast material. Coronal and sagittal MPRs as well as maximal intensity projection reformations were obtained. 3D images were also made. The images were reviewed on a PACS workstation. The CTDIvol is 6.03, 36.17, and 30.32 mGy and the DLP is 650.52 mGycm. DICOM images are available. One or more of the following dose reduction techniques were utilized: 1.) Automated exposure control 2.) Adjustment of the mA +/- kV according to patient's size 3.) Use of iterative reconstruction technique. COMPARISON: Head CT without contrast 09/19/2018 FINDINGS: Internal carotid arteries are patent with mild atherosclerotic calcifications of the cavernous and supraclinoid ICA with no hemodynamically significant stenosis. The anterior cerebral and middle cerebral arteries are patent and normal in caliber. There is a right dominant vertebral basilar system eccentric fibrocalcific plaque is seen at the proximal aspect of the right internal carotid artery. There is less than 50% stenosis. Left carotid bulb and proximal ICA are patent. There is beaded appearance of the cervical segments of bilateral internal carotid arteries. The vertebral arteries, basilar artery, superior cerebellar arteries, and posterior cerebral arteries are all normal in appearance. There is a saccular aneurysm arising from the right supraclinoid ICA measuring 5.7 x 6.6 mm (transverse x AP) projecting medially and posteriorly. There is dense calcification at the fundus of the aneurysm sac. No vascular malformation is seen. IMPRESSION: 1. 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 2. Mild intracranial atherosclerosis with no significant stenosis. 3. Eccentric fibrofatty and calcified plaque at the proximal right ICA with less than 50% stenosis. 4. Beaded appearance of the cervical segments of bilateral internal carotid arteries suggestive of fibromuscular dysplasia. RPTAT: BB .Radha Tolentino MD, MD Date Time Electronically viewed and signed by .Radha Tolentino MD, on 09/20/2018 14:09 PROCEDURE: CT brain without contrast CLINICAL INDICATION: Hypothermia, confusion TECHNIQUE: CT of the brain without contrast was performed on a multidetector CT scanner, with multiplanar reformats. One or more of the following dose reduction techniques were used: Automated exposure control, adjustment in mA and / or kV according to patient size, use of iterative reconstructive technique. CTDIvol = 48 mGy; DLP = 799 mGy-cm. DICOM images are available. COMPARISON: None available FINDINGS: No acute intracranial hemorrhage is identified. No extra-axial fluid collection is seen. There is no mass effect. No midline shift is identified. The ventricles and sulci are within normal limits for size and configuration. The density of the brain is unremarkable. Osei-white junctions are preserved. Atherosclerotic calcifications are noted at the proximal intracranial arteries. There is a small focal calcification at the right sellar - suprasellar region adjacent to the supraclinoid right internal carotid artery, raising the possibility of an aneurysm. Calvarium and skull base are intact. Severe right sphenoid sinus mucosal thickening is seen. IMPRESSION: 1. No evidence of acute intracranial pathology. 2. Small calcification at the right sellar - suprasellar region, raising possibility of supraclinoid right ICA aneurysm. Follow-up with CTA, or MRA of the brain is recommended. RPTAT: VV .Robert Tadeo MD, MD Date Time Electronically viewed and signed by .Robert Tadeo MD, MD on 09/19/2018 13:45 PROCEDURE: Retroperitoneal US. CLINICAL INDICATION: Renal insufficiency TECHNIQUE: Multiple sonographic images of the kidneys and retroperitoneum were obtained. The images were reviewed on a PACS workstation. COMPARISON: No prior studies are available for comparison. FINDINGS: The kidneys are normal in size, contour, cortical thickness and cortical echogenicity. The right kidney measures 10.6 cm. The left kidney measures 9.9 cm. No kidney stones are visualized. There is mild left-sided hydronephrosis. The urinary bladder is decompressed by a Dave catheter. There is a small amount of ascites in the pelvis. RPTAT: AA IMPRESSION: Mild left-sided hydronephrosis. Small amount of ascites in the pelvis. .Manolo Wang MD, Date Time Electronically viewed and signed by .Manolo Wang MD, on 09/12/2018 11:41 PROCEDURE: CT Brain without contrast. CLINICAL INDICATION: Fall TECHNIQUE: A CT of the brain was performed on a [employer] 64-slice CT scanner utilizing axial imaging from the skull base through the vertex without IV contrast. Multiplanar reformatted images were made. Images were reviewed on a PACS workstation. The CTDIvol is 48 mGy and the DLP is 804 mGycm. DICOM images are available. One or more of the following dose reduction techniques were utilized: 1.) Automated exposure control 2.) Adjustment of the mA +/- kV according to patient's size 3.) Use of iterative reconstruction technique. COMPARISON: None FINDINGS: There is no intracranial hemorrhage, mass effect, or midline shift. No extra- axial fluid collection is seen. The ventricles and sulci are normal in size and configuration. The density of the brain is normal, and the osei white matter differentiation appears well-preserved. The visualized paranasal sinuses and osseous structures are grossly unremarkable. IMPRESSION: 1. No evidence of acute intracranial pathology. Physician Brain Date Time Electronically viewed and signed by Physician Brain on 09/09/2018 15:31 PROCEDURE: CT Cervical Spine without contrast. CLINICAL INDICATION: Pain after fall TECHNIQUE: A CT of the cervical spine was performed on a [employer] 64- slice CT scanner utilizing thin section axial images from the skull base through the thoracic inlet. Sagittal and coronal reformatted images were made. The CTDIvol is 19.24 mGy and the DLP is 419.45 mGycm. DICOM images are available. One or more of the following dose reduction techniques were utilized: 1.) Automated exposure control 2.) Adjustment of the mA +/- kV according to patient's size 3.) Use of iterative reconstruction technique. COMPARISON: No prior studies are available for comparison. FINDINGS: No acute fracture of the cervical spine detected. Straightening of the normal lordosis without significant vertebral body subluxation or acute appearing malalignment. Mild disc height loss at C5-C6 with small endplate osteophytes. Mild multilevel annular bulging without significant spinal canal stenosis. Mild uncovertebral spurring resulting in mild right-sided foraminal narrowing at C4-C5. No high- grade foraminal stenosis detected. Endotracheal tube in place. Partially imaged patchy opacities in the upper lobes, right greater than left. IMPRESSION: No acute fracture of the cervical spine. Straightening of the normal lordosis may be positional or related to muscle spasm. RPTAT:AAJJ Jemima Ring Physician Date Time Electronically viewed and signed by Physician Roberto Carlos on 09/09/2018 15:21 PROCEDURE: XR Chest. CLINICAL INDICATION: Status post intubation TECHNIQUE: Single portable view of the chest was obtained COMPARISON: None FINDINGS: There is a new endotracheal tube within the proximal right mainstem bronchus. Retraction of 2 cm is recommended. There is a nasogastric tube within the stomach. There is mild cardiomegaly. There is a right upper lobe, right perihilar and right lower lobe infiltrate. RPTAT: AA IMPRESSION: Endotracheal tube possibly within the right mainstem bronchus. Retraction of 2 cm is recommended. Extensive right lung infiltrates. A call report was made and the findings discussed with Melo Dyer at 09/09/2018 1:19:16 PM. .Manolo Wang MD, MD Date Time Electronically viewed and signed by .Manolo Wang MD, MD on 09/09/2018 13:1 Hx of Present Illness 63 yo F with PMH assumed HTN presented to ED in full cardiac arrest. History obtained from ED and EMS documentation given patient intubated and hypothermia protocol initiated. Patient was found on sidewalk unconscious. She was found in Vfib arrest and ACLS protocol was performed. She received amiodarone, 4 r ounds of epinephrine, bicarb and narcan. She has ROSC but since was unresponsive, hypothermia was initiated. In ED patient found with septic shock secondary to right sided pneumonia. Hospital Course Patient was admitted to ICU after being found down by bystanders and paramedics and V. fib cardiac arrest. Patient was intubated and underwent hypothermia protocol and had a lengthy stay in the ICU. Given Vfib event, cardiology was consulted for recommendations and when stable patient underwent PCI which was negative for any occlusive disease. Patients initial EF was found to be 20% but repeat was 50% as condition improved. Patient was treated for septic shock secondary to aspiration pneumonia and ID as well as Pulmonary were on board for assistance with treatment. Patient was successfully extubated but given delusional behavior, CT scan was performed with possible aneurysm which was later verified on CTA of head. Family was instructed to have patient followed closely by outpatient neurologist after discharged. Patient continued to improved on maximal medical therapy per cardiology. AICD was placed prior to d ischarge given initial EF 20% with Vfib episode. Patient returned to baseline mentation suazo and completed course of antibiotics. Patients presenting symptoms improved significantly and on day of discharge patients vitals and physical exam were optimal. Patient was discharged home in stable condition with HHPT services. Home Meds Active Scripts Isosorbide Dinitrate* (Isordil*) 10 Mg Tablet, 10 MG PO TID for 30 Days, #90 TAB 6 Refills Prov:OZZIE ALVAREZ MD 09/28/18 Aspirin (Aspirin) 81 Mg Chew, 81 MG PO DAILY for 30 Days, #30 TAB 6 Refills Prov:OZZIE ALVAREZ MD 09/27/18 Spironolactone* (Aldactone*) 50 Mg Tablet, 50 MG PO DAILY for 30 Days, #30 TAB Prov:OZZIE ALVAREZ MD 09/27/18 Lisinopril* (Lisinopril*) 20 Mg Tablet, 20 MG PO BID for 30 Days, #30 TAB 6 Refills Prov:OZZIE ALVAREZ MD 09/27/18 Carvedilol* (Carvedilol*) 25 Mg Tablet, 25 MG PO BID for 30 Days, #60 TAB 6 Refills Prov:OZZIE ALVAREZ MD 09/27/18 Discontinued Reported Medications Hydrochlorothiazide* (Hydrochlorothiazide*) 25 Mg Tab, 25 MG PO DAILY, #30 TAB 09/09/18 Simvastatin (Simvastatin) 20 Mg Tablet, 20 MG PO DAILY 09/09/18 Lisinopril* (Lisinopril*) 40 Mg Tablet, 40 MG PO DAILY 09/09/18 Follow-up Plan 1. Follow up with your primary care physician in 1 week 2. You will need to discuss referral to neurology to continue monitoring the aneurysm seen on the CT scan of your brain 3. Continue taking Carvedilol twice a day, Isosorbide 10mg three times a day, Lisinopril once a day, and Aldactone. Do not take Lasix. Make sure you have food in her stomach when taking medications. 4. You will need to follow up with Dr. Graham in 7-10 days to check the AICD. Continue arm in sling as instructed 5. You will have home health and physical therapy come work with you at your home 6. If symptoms return or worsen, please go to your closest emergency department. Primary Care Provider Care Physician No Primary Time spent on discharge: > 30 minutes OZZIE ALVAERZ MD Sep 28, 2018 17:11
[2018-09-29] MEDS ORDERED: LISI-471 PO (11:18)
[2018-09-29] MEDS ORDERED: SPIR50TA PO (11:18)
[2018-09-29] MEDS ORDERED: CARV25TA79 PO (11:18)
[2018-09-29] MEDS ORDERED: SPIR25TA PO (11:24)
[2018-09-29] MEDS ORDERED: CARV12.579 PO (11:24)
[2018-09-29] MEDS ORDERED: LISI10TA2 PO (11:24)
--- NOTE | 2018-09-29 16:54 | NUR ---
Faxed inquiries to these H/H agencies: [facility], [facility], [facility], [facility], [facility] and [facility]. Please follow up.
--- NOTE | 2018-09-30 16:17 | NUR ---
Allison of [facility] called this telegraphic typewriter repairer to confirm [facility] is indeed contracted with [facility], per Allison no auth# is needed, this telegraphic typewriter repairer gave Allison Lynn's of [facility] cell phone so she can confirm this information to him.
== END 2018-09-28 16:24 | disposition home health service (06) | DRG 224 ==
LOC: E/R 12:31 → ICU 16:10 → CANRESERV 18:19 → TEL 09-20 02:02
PROVIDERS: ADMIT Internal Medicine; ATTEND Internal Medicine
PROC: 0JH608Z Insertion of Defibrillator Generator into Chest Subcutaneous Tissue and Fascia, Open Approach (ICD-10-PCS; principal; 2018-09-09)
PROC: 02HK3KZ Insertion of Defibrillator Lead into Right Ventricle, Percutaneous Approach (ICD-10-PCS; 2018-09-09)
PROC: 4A023N7 Measurement of Cardiac Sampling and Pressure, Left Heart, Percutaneous Approach (ICD-10-PCS; 2018-09-09)
PROC: 5A1955Z Respiratory Ventilation, Greater than 96 Consecutive Hours (ICD-10-PCS; 2018-09-09)
PROC: 05HM33Z Insertion of Infusion Device into Right Internal Jugular Vein, Percutaneous Approach (ICD-10-PCS; 2018-09-09)
PROC: 0BH18EZ Insertion of Endotracheal Airway into Trachea, Via Natural or Artificial Opening Endoscopic (ICD-10-PCS; 2018-09-09)
PROC: B211YZZ Fluoroscopy of Multiple Coronary Arteries using Other Contrast (ICD-10-PCS; 2018-09-09)
PROC: 5A2204Z Restoration of Cardiac Rhythm, Single (ICD-10-PCS; 2018-09-09)
PROC: 5A2204Z Restoration of Cardiac Rhythm, Single (ICD-10-PCS; 2018-09-09)
PROC: 30233N1 Transfusion of Nonautologous Red Blood Cells into Peripheral Vein, Percutaneous Approach (ICD-10-PCS; 2018-09-18)
DX: I49.01 Ventricular fibrillation (principal); A41.9 Sepsis, unspecified organism; R65.21 Severe sepsis with septic shock; J96.01 Acute respiratory failure with hypoxia; J69.0 Pneumonitis due to inhalation of food and vomit; J96.02 Acute respiratory failure with hypercapnia; G92 Toxic encephalopathy; I21.4 Non-ST elevation (NSTEMI) myocardial infarction; N17.9 Acute kidney failure, unspecified; E87.2 Acidosis; E87.0 Hyperosmolality and hypernatremia; E87.6 Hypokalemia; I47.2 Ventricular tachycardia; I46.2 Cardiac arrest due to underlying cardiac condition; E78.5 Hyperlipidemia, unspecified; I42.9 Cardiomyopathy, unspecified; D69.6 Thrombocytopenia, unspecified; I11.0 Hypertensive heart disease with heart failure; I50.9 Heart failure, unspecified; D64.9 Anemia, unspecified; I77.3 Arterial fibromuscular dysplasia; I67.1 Cerebral aneurysm, nonruptured; F22 Delusional disorders
CPT/HCPCS: 31500; 33249; 36415; 36430; 36600; 70450; 70496; 71045; 72125; 76775; 76937; 80048; 80053; 80069; 80202; 80307; 81001; 82150; 82270; 82550; 82553; 82803; 82962; 83036; 83605; 83690; 83735; 83880; 84100; 84132; 84300; 84443; 84484; 85025; 85384; 85610; 85730; 86850; 86900; 86901; 86920; 87040; 87070; 87081; 87086; 92526; 92610; 92950; 93005; 93306; 93458; 93976; 94002; 94003; 94640; 94664; 94770; 96374; 96375; 97110; 97116; 97161; 97164; 97167; 97530; 97535; C1722; C1751; C1760; C1887; C1894; C1895; C9113; J0153; J0171; J0282; J0360; J0690; J1644; J1815; J1940; J2060; J2250; J2270; J2310; J2370; J2543; J3010; J3370; J3475; J3480; J7030; J7042; J7050; J7060; J7070; P9016; Q9967

== ENCOUNTER 2018-09-29 10:37 | Emergency (ER) | payer OTHER ==
[~2018-09-29] VITALS: Ht 167.6 cm; Wt 59.1 kg
[~2018-09-29 10:37] MED LIST changes: -ADENOSINE 3 MG/ML SYRINGE IV ONE; -AMIODARONE 150 MG INJ ONE; +ASPI-831 PO; +CARV25TA79 PO; -EPINEPHrine 0.1 MG/ML SYG ONE; +ISOS10TA2 PO; +LISI-471 PO; -NA BICARBONATE 8.4% 50 ML SYG ONE; -NALOXONE 2 MG SYG ONE; +SPIR50TA PO
[2018-09-29 10:41] VITALS: Ht 167.6 cm; Wt 59.1 kg
[2018-09-29] MEDS ORDERED: SPIR50TA PO (11:18)
[2018-09-29] MEDS ORDERED: CARV25TA79 PO (11:18)
[2018-09-29] MEDS ORDERED: LISI-471 PO (11:18)
[2018-09-29] MEDS ORDERED: LISI10TA2 PO (11:24)
[2018-09-29] MEDS ORDERED: CARV12.579 PO (11:24)
[2018-09-29] MEDS ORDERED: SPIR25TA PO (11:24)
--- NOTE | 2018-09-29 12:14 | ERD ---
ER Documentation Chief Complaint Chief Complaint WEAKNESS, DIZZINESS, HYPOTENSION HPI This is a 63-year-old female who was discharged in the hospital last night she was admitted for cardiac arrest. The patient was doing great and then she took her blood pressure medication last night and felt fine. This morning she took them again about an hour and a half later she became dizzy and weak and they checked her blood pressure at home and it was systolic of 40-50s over 30s. The patient had a defibrillator placed but it did not discharge. She did not have any chest pain syncope shortness of breath. She is currently feeling much better at this time paramedics blood pressure was 66/45. Blood pressure on my exam was 105/76. ROS All systems reviewed and are negative except as per history of present illness. Medications Home Meds Active Scripts Spironolactone* (Aldactone*) 25 Mg Tablet, 25 MG PO DAILY for 30 Days, #30 TAB 6 Refills Prov:OZZIE RM MD 09/29/18 Lisinopril* (Lisinopril*) 10 Mg Tablet, 10 MG PO DAILY for 30 Days, #30 TAB 6 Refills Prov:OZZIE RM MD 09/29/18 Carvedilol* (Carvedilol*) 12.5 Mg Tablet, 12.5 MG PO BID for 30 Days, #60 TAB 6 Refills Prov:OZZIE RM MD 09/29/18 Isosorbide Dinitrate* (Isordil*) 10 Mg Tablet, 10 MG PO TID for 30 Days, #90 TAB 6 Refills Prov:OZZIE RM MD 09/28/18 Aspirin (Aspirin) 81 Mg Chew, 81 MG PO DAILY for 30 Days, #30 TAB 6 Refills Prov:OZZIE RM MD 09/27/18 Discontinued Reported Medications Hydrochlorothiazide* (Hydrochlorothiazide*) 25 Mg Tab, 25 MG PO DAILY, #30 TAB 09/09/18 Simvastatin (Simvastatin) 20 Mg Tablet, 20 MG PO DAILY 09/09/18 Lisinopril* (Lisinopril*) 40 Mg Tablet, 40 MG PO DAILY 09/09/18 Discontinued Scripts Spironolactone* (Aldactone*) 50 Mg Tablet, 25 MG PO DAILY for 30 Days, #30 TAB Prov:OZZIE RM MD 09/29/18 Lisinopril* (Lisinopril*) 20 Mg Tablet, 10 MG PO BID for 30 Days, #30 TAB 6 Refills Prov:OZZIE RM MD 09/29/18 Carvedilol* (Carvedilol*) 25 Mg Tablet, 12.5 MG PO BID for 30 Days, #60 TAB 6 Refills Prov:OZZIE RM MD 09/29/18 Allergies Allergies: Coded Allergies: Unknown: Unable to obtain (Unverified , 09/11/18) PMhx/Soc Hx Respiratory Disorders: Yes (pna) Hx Cardiac Disorders: Yes (cardiac arrest) Hx Miscellaneous Medical Probl: Yes (HTN) Smoking Status: Never smoker FmHx Family History: No coronary disease Physical Exam Vitals Vital Signs Date Temp Pulse Resp B/P (MAP) Pulse Ox O2 O2 Flow FiO2 Time Delivery Rate 09/29/18 97.6 61 16 90/51 (64) 93 10:41 Physical Exam Const: Well-developed, well-nourished Head: Atraumatic, normocephalic Eyes: Normal Conjunctiva, PERRLA, EOMI, normal sclera, no nystagmus ENT: Normal External Ears, Nose and Mouth, moist mucus membranes. Neck: Full range of motion. No meningismus, no lymphadenopathy. Resp: Clear to auscultation bilaterally, no wheezing, rhonchi, rales Cardio: Regular rate and rhythm, no murmurs, S1 S2 present Abd: Soft, non tender x 4, non distended. Normal bowel sounds, no guard ing or rebound, no pulsitile abdominal masses or bruits Skin: No petechiae or rashes, no ecchymosis , no maculopapular rash Back: No midline or flank tenderness Ext: No cyanosis, or edema, FROM x 4, normal inspection, neurovascularly intact x 4 Neur: Awake and alert, STR 5/5 x 4, sensation intact x 4, no focal findings, cerebellum intact Psych: Normal Mood and Affect Procedures/MDM The patient's blood pressure is clearly due to overmedication. I have called Dr. Guero Rm come down to see the patient in the ER for more medication adjustment. She saw the patient and made some recommendations for changes. She also gave the patient her email address in case any to ask further questions. Patient is feeling much better with a stable blood pressure at this time Patient feels much better at this time, and vital signs are normal, symptoms have improved. I did give strict instructions to return to the ED if symptoms continue or worsen, patient will otherwise follow-up with primary care physician. Patient understood instructions and agreed to plan. Disclaimer: Inadvertent spelling and grammatical errors are likely due to EHR/dictation software use and do not reflect on the overall quality of patient care. Also, please note that the electronic time recorded on this note does not necessarily reflect the actual time of the patient encounter. Departure Diagnosis: Primary Impression: Hypotension Hypotension type: hypotension due to drug Qualified Codes: I95.2 - Hypotension due to drugs Condition: Stable Patient Instructions: Low Blood Pressure (Hypotension) Referrals: NO PRIMARY,CARE PHYSICIAN (PCP) CASANDRA WOODS DO Sep 29, 2018 12:14
--- NOTE | 2018-09-29 12:34 | QN ---
Documentation Comment Patient was brought to the ED this am after complaining of feeling dizzy. Family at bedside and daughter has been recording her BP. Last night around 5pm her BP was 110s and this am was 130s. However, 1 hour after taking all her medications her BP dropped to 50-60s and family was concerned. Family also said they accidently gave the isosorbide 20mg rather than 10mg dose. Patients BP improved to 100s in ED and discussion was held with patient and family. Patient was feeling better and wanted to go home. Adjustments were made to the BP medications (dosages halved) which included: Spironolactone 25mg daily, Lisinopril 10mg BID, and Carvedilol 12.5mg and family plans to continue monitoring and recording her BPs. She is supposed to follow up with PCP and Cardiology next week but gave my contact information to reach out if any concerns before then. Patient was examined and physical exam and vitals were stable. Discussed case with ED physician as well. OZZIE ALVAREZ MD Sep 29, 2018 12:34
[2018-09-29 12:40] VITALS: BP 111/62; PULSE 75; RESP 19
== END 2018-09-29 12:42 | disposition home or self-care (01) ==
LOC: E/R 10:37
DX: I95.2 Hypotension due to drugs (principal); I10 Essential (primary) hypertension; Z79.82 Long term (current) use of aspirin
CPT/HCPCS: 93005; Z7502